=== PATIENT | female | born 1945 | race Caucasian/White ===

== ENCOUNTER → 2016-10-02 | Outpatient (CLI) | payer OTHER ==
[2016-03-30 09:17] VITALS: BP 134/82; PULSE 90
[~2016-10-02] MED LIST: ANAS1TAB19 PO; EFF75 PO; MULT-506 PO; NRN100 PO; PRAV20TA PO; VNTHFA/IN INH
[2016-10-02 14:32] VITALS: BP 148/79; PULSE 81; TEMP 36.4; O2SAT 96
--- NOTE | 2016-10-02 16:21 | Radiation Oncology Follow-Up ---
Radiation Oncology Follow-Up Date of Visit Oct 02, 2016. (Lou Drummond PA-C) Reason For Visit 6 month follow-up (Lou Drummond PA-C) Radiation Completion Date 03/01/2016 (Lou Drummond PA-C) Diagnosis (1) Breast cancer Status: Resolved Onset Date: 03/16/2015 Stage: ll (B) Permanent Comment: DIAGNOSIS: Left breast cancer, invasive lobular carcinoma, grade 2, ER positive, MS/Her2 negative, [id number], stage IIB TREATMENT: 1. Lumpectomy/SLN - 05/04/2015 2. Chemotherapy - A/C followed by Taxol (Dr. Morales Rodriguez) - last cycle during week of 11/28/2015 3. Status post completion of radiation therapy 03/01/2016 received 6640 cGy Last Edited By: Lou Drummond on Mar 09, 2016 10:32 (Lou Drummond PA-C) History of Present Illness Ms. Juarez is a 70-year-old female who initially presented with an abnormal left mammogram in February 2015 which showed abnormal calcifications in the left upper outer quadrant. She underwent a core biopsy on 03/16/2015 which revealed invasive lobular carcinoma that was grade 2. She then subsequently underwent a bilateral MRI of the breast on 03/29/2015 which showed a 24 mm mass in the left breast but no other suspicious findings. Of note, a right lung nodule was noted and she did have a CT chest completed on 04/07/2015 which confirm multiple bilateral pulmonary nodules in the left breast mass. She then underwent an lumpectomy and sentinel lymph node biopsy on 05/04/2015 which revealed invasive lobular carcinoma that was grade 2 with ductal carcinoma in situ present. The tumor was 2.5 cm in the greatest dimension and was unifocal. There is no evidence of lymphovascular space invasion. The margins were negative. The sentinel lymph node resection revealed 1 positive sentinel lymph node with no extranodal extension identified. The patient subsequently underwent a PET/CT scan on 05/11/2015 which showed no evidence of distant metastatic disease. Of note, the pulmonary nodules were also not FDG avid. The patient subsequently underwent adjuvant chemotherapy (AC/T) underneath the supervision of Dr. Morales Rodriguez. She received her last cycle of Taxol chemotherapy the week of 11/28/2015. We did previously see the patient in consultation to discuss the role of radiation therapy and recommended adjuvant radiation therapy. Status post completion of radiation therapy 03/01/2016 received 6640 cGy (Lou Drummond PA-C) Interim History She's been doing well over the past 6 months. She has noted no changes to her breast. She's noted no masses or tenderness no change of the axilla. She's had no swelling of her arm. She is up-to-date on mammography. She stated after her mammogram in April there was a finding on the right side. And she had to have that investigated. She had an ultrasound performed on 05/07/2016. This was benign. There is no suspicious findings on the ultrasound. She is scheduled for her next mammogram in April. She also stated that she had a CT of the chest ordered by the primary care physician. She wasn't quite certain why this was being performed. She asked that Dr. Rodriguez reviewed the study and look at the scan. She continues on Arimidex and denies side effects. (Lou Drummond PA-C) Allergies Coded Allergies: No Known Allergies (Unverified , 10/13/15) Home Medications Scheduled Anastrozole (Arimidex), 1 TAB PO DAILY Gabapentin (Gabapentin), 300 MG PO HS Multivitamin (Multivitamin), 1 TAB PO DAILY Pravastatin (Pravachol ), 80 MG PO DAILY Venlafaxine Hcl (Effexor), 75 MG PO BID Review of Systems Gastrointestinal: Symptoms: WNL Oral: Symptoms: No Problems Respiratory: Symptoms: WNL Urinary: Symptoms: WNL Comments: nocturia times 1 - 2 Skin: Symptoms: No Problems Breast: Right Upper Arm Measurement: 28.8 Right Mid Arm Measurement: 25.0 Right Wrist Measurement: 16.0 Left Upper Arm Measurement: 31.0 Left Mid Arm Measurement: 24.3 Left Wrist Measurement: 16.1 Arm Dominence: Right Patient Cosmetic Evaluation: Excellent Staff Cosmetic Evalaluation: Excellent (Lou Drummond PA-C) Physical Exam Vital Signs Date Time Temp Pulse Resp B/P (MAP) Pulse Ox O2 Delivery O2 Flow Rate FiO2 10/02/16 14:32 36.4 81 16 148/79 96 Pain: Side: Bilateral Patient Pain Scale: 0 - 10 Initial Pain Intensity: 0.0 General Appearance: no apparent distress Eyes: normal inspection, EOMI ENT: normal ENT inspection, hearing grossly normal Neck: no adenopathy, thyroid normal Respiratory/Chest: lungs clear, no respiratory distress, no accessory muscle use Breast: Breast examination reveals well-healed incisions of the left breast. There are no masses or tenderness no axillary adenopathy. She has no skin retractions or nipple changes. There is no telangiectasia. Using the Staples score cosmesis she has a in excellent outcome. The right breast showed no masses or tenderness and no axillary adenopathy. Cardiovascular: regular rate, rhythm, no gallop, no murmur Abdomen: non tender, soft Extremities: no pedal edema Neurologic/Psychiatric: no motor/sensory deficits, alert, normal mood/affect Skin: warm/dry Lymphatic: no adenopathy (Lou Drummond PA-C) Additional Studies 05/07/2016 10:10 AM - Interface, Rad In Narrative History of left breast cancer diagnosed in Mar, 2015. Digital breast tomosynthesis was performed as well as targeted ultrasound of the right breast. Comparison is made to images from 05/04/2015, 03/16/2015 (left), 01/21/2015 ( bilateral), 01/18/2014 (bilateral), 01/12/2013 (bilateral), 01/11/2012 (bilateral) and 01/08/2011 ( bilateral). Left Breast Findings: The breast is heterogeneously dense (51% - 75% fibroglandular). This may lower the sensitivity of mammography. Postoperative changes in the upper outer quadrant and axilla are as anticipated and well characterized on the tomosynthesis images. There are no suspicious calcifications, masses nor unexplained areas of architectural distortion. Right Breast Findings: Mammogram: The breast is heterogeneously dense (51% - 75% fibroglandular). This may lower the sensitivity of mammography. The tissue in the upper outer aspect of the right breast is becoming from t he primary breast cone. Benign round and punctate calcifications are unchanged. Ultrasound: In the upper outer breast, the tissue has a normal appearance. There are no suspicious findings. Authenticated By Authenticating Date Authenticating Time Reading Providers(s) DIMAS GHOTRA MD 05-07-2016 10:10 DIMAS GHOTRA MD IMPRESSION: LEFT BREAST: Findings are probably benign. A short interval follow-up is recommended in 6 months. RIGHT BREAST: Benign, no evidence of malignancy. Normal interval follow-up is recommended in 12 months. I personally discussed the above findings and recommendations with the patient while she was in the Department of Radiology. This digital mammogram has been analyzed with the computer aided detection system. This notice contains the results of your recent mammogram, including information about breast density. If your mammogram shows that your breast tissue is dense, you should know that dense breast tissue is a common finding and is not abnormal. Statistics show many women could have dense or highly dense breasts. Dense breast tissue can make it harder to find cancer on a mammogram and may be associated with an increased risk of cancer. This information about the result of your mammogram is given to you to raise your awareness and to inform your conversations with your physician. Together, you can decide which screening options are right for you, based on your mammogram results, individual risk factors or physical examination. A report of your results was sent to your physician. Your mammographic breast density on today's study is described above. There are four categories of breast density on mammography. Fatty breasts and those with scattered fibroglandular tissue are not considered dense. Heterogeneously dense or extremely dense tissue is considered "dense". Please understand that assessment of breast density may vary from year to year. OVERALL ASSESSMENT - CATEGORY 3 - PROBABLY BENIGN END OF IMPRESSION Results CHEST CT, NO CONTRAST [96786 (CPT)] (Spec. #[id number]) (Order [id number]) Date/Time of Imaging Study Study Completed: 07/18/2016 11:12 AM [email or web address] PACS Image Narrative EXAM EXAM: CT THORAX WITHOUT CONTRAST DATE and TIME: 07/18/2016 11:12 am HISTORY CLINICAL INFORMATION: 6 month f/u pulmonary nodules; breast surgery changes, ? lymphocele TECHNIQUE Oral Contrast: Oral contrast was not administered. IV Contrast: IV contrast was not administered. COMPARISON CT THORAX WITHOUT CONTRAST dated 01/16/2016; CT THORAX WITH CONTRAST dated 2014 FINDINGS MEDIASTINUM AND YANETH: No mediastinal mass or pathologically enlarged lymph nodes. Incompletely evaluated yaneth in the absence of IV contrast are grossly unremarkable. HEART: There is no pericardial effusion. LARGE AIRWAYS: Unremarkable LUNGS: Stable 8 mm pulmonary nodule in the right middle lobe and stable 5 mm pulmonary nodule in the left upper lobe. New onset irregular pleural thickening with associated parenchymal stranding and questionable early honeycombing in the anterior and lateral left upper lobe, in an area of previously reported tiny nodule which is obscured by this process. The finding as a fibrotic appearance and may be related to the breast cancer therapy. Clinical correlation is needed with respect to RT field. Cannot completely rule out active disease in this area. The lungs are otherwise remarkable for mild and predominately centrilobular emphysema. PLEURA: There no pleural effusions. CHEST WALL/SOFT TISSUES: There is no axillary lymphadenopathy.Stable is treatment changes in the left breast. LINES AND DEVICES: None BONES: Degenerative changes. No acute finding. VESSELS: Atherosclerotic changes in the aorta and coronary arteries. UPPER ABDOMEN: No acute findings or interval changes. IMPRESSION Stable pulmonary nodules. No new pulmonary nodules. New irregular pleural thickening with adjacent pulmonary parenchymal stranding and questionable early honeycombing in the anterolateral left upper thorax. These findings may be related to the left breast cancer treatment (RT). Clinical correlation needed. RECOMMENDATIONS: Per Fleischner society recommendations in this high risk patient with stable prior CT examinations, followup CT in 12 months. 05/07/2016 10:10 AM - Interface, Rad In Narrative History of left breast cancer diagnosed in Mar, 2015. Digital breast tomosynthesis was performed as well as targeted ultrasound of the right breast. Comparison is made to images from 05/04/2015, 03/16/2015 (left), 01/21/2015 ( bilateral), 01/18/2014 (bilateral), 01/12/2013 (bilateral), 01/11/2012 (bilateral) and 01/08/2011 ( bilateral). Left Breast Findings: The breast is heterogeneously dense (51% - 75% fibroglandular). This may lower the sensitivity of mammography. Postoperative changes in the upper outer quadrant and axilla are as anticipated and well characterized on the tomosynthesis images. There are no suspicious calcifications, masses nor unexplained areas of architectural distortion. Right Breast Findings: Mammogram: The breast is heterogeneously dense (51% - 75% fibroglandular). This may lower the sensitivity of mammography. The tissue in the upper outer aspect of the right breast is becoming from t he primary breast cone. Benign round and punctate calcifications are unchanged. Ultrasound: In the upper outer breast, the tissue has a normal appearance. There are no suspicious findings. Authenticated By Authenticating Date Authenticating Time Reading Providers(s) DIMAS GHOTRA MD 05-07-2016 10:10 DIMAS GHOTRA MD IMPRESSION: LEFT BREAST: Findings are probably benign. A short interval follow-up is recommended in 6 months. RIGHT BREAST: Benign, no evidence of malignancy. Normal interval follow-up is recommended in 12 months. I personally discussed the above findings and recommendations with the patient while she was in the Department of Radiology. This digital mammogram has been analyzed with the computer aided detection system. This notice contains the results of your recent mammogram, including information about breast density. If your mammogram shows that your breast tissue is dense, you should know that dense breast tissue is a common finding and is not abnormal. Statistics show many women could have dense or highly dense breasts. Dense breast tissue can make it harder to find cancer on a mammogram and may be associated with an increased risk of cancer. This information about the result of your mammogram is given to you to raise your awareness and to inform your conversations with your physician. Together, you can decide which screening options are right for you, based on your mammogram results, individual risk factors or physical examination. A report of your results was sent to your physician. Your mammographic breast density on today's study is described above. There are four categories of breast density on mammography. Fatty breasts and those with scattered fibroglandular tissue are not considered dense. Heterogeneously dense or extremely dense tissue is considered "dense". Please understand that assessment of breast density may vary from year to year. OVERALL ASSESSMENT - CATEGORY 3 - PROBABLY BENIGN END OF IMPRESSION (Lou Drummond PA-C) Assessment & Plan Plan: Patient is also seen and examined by Dr. Rodriguez. The CT of the chest was reviewed. It was discussed with her that this was performed due to pulmonary nodules. It was recommended that it be rechecked again in one year. She is scheduled for her next mammogram in October. She continues on Arimidex. Continue regular follow-up with Dr. Rodriguez in medical oncology and her primary care physician. We asked her to return to our office in 1 year. (Lou Drummond PA-C) I agree with note created by Lou Drummond PA-C. I reviewed the patient's chart and information with her. I have examined and evaluated the patient. I reviewed relevant clinical information and answered the patient's questions. (Veeral. Rodriguez MD) Total Time In Follow-Up I spent 20 units speaking to the patient performing examination. I spent 15 minutes reviewing information and completing this note. (Lou Drummond PA-C) I spent 15 minutes examining and counseling the patient. (Veeral. Rodriguez MD) Copy To Florence Mayfield MD; Mahogany Valentin M.D.; Morales Rodriguez M.D. Problem Qualifiers (1) Breast cancer: Breast location: upper outer quadrant of breast Estrogen receptor status: positive Patient sex: female Laterality: left Qualified Codes: C50.412 - 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 female breast; Z17.0 - Estrogen receptor positive status [ER+]
== END | disposition home or self-care (01) ==
LOC: C.ONC 14:26
PROVIDERS: ATTEND Physician Assistant Medical
DX: Z08 Encounter for follow-up examination after completed treatment for malignant neoplasm (principal); Z92.3 Personal history of irradiation; Z85.3 Personal history of malignant neoplasm of breast

== ENCOUNTER 2017-08-22 16:48 | Inpatient (IN) | payer OTHER ==
[~2017-08-22] VITALS: Ht 160 cm; Wt 74.7 kg
[~2017-08-22 16:48] MED LIST changes: -VNTHFA/IN INH
[2017-08-22] MEDS ORDERED: NRN300 PO (17:35)
[2017-08-22] MEDS ORDERED: PRAV80TA2 PO (17:35)
[2017-08-22] MEDS ORDERED: HYDROCODONE/ACETAMIN 5/325MG TAB PO PRN (17:45)
[2017-08-22 17:52] LABS: HEMATOCRIT 35.8 % (37-47); HEMOGLOBIN 12.3 g/dL (12.0-16.0); MEAN CELL VOLUME 91.1 fL (80-100); MEAN CORPUSCULAR HEMOGLOBIN 31.3 pg (25-34); MEAN CORPUSCULAR HGB CONC 34.4 g/dl (32-36); MEAN PLATELET VOLUME 9.3 fL (7.4-10.4); PLATELET COUNT 218 K/uL (130-400); RED CELL DISTRIBUTION WIDTH CV 13.3 % (11.5-14.5); RED CELL DISTRIBUTION WIDTH SD 44.7 fL (36.4-46.3); WHITE BLOOD COUNT 10.85 K/uL (4.8-10.8)
[2017-08-22] MEDS ORDERED: ONDANSETRON INJ 2 MG/ML 2 ML VIAL IV PRN (18:00)
[2017-08-22] MEDS ORDERED: ACETAMINOPHEN 325 MG TAB PO PRN (18:00)
[2017-08-22] MEDS ORDERED: POLYETHYLENE (MIRALAX) 17 GM PACK PO PRN (18:00)
[2017-08-22] MEDS ORDERED: MAGNESIUM HYDROXIDE SUSP 30 ML UDC PO PRN (18:00)
[2017-08-22] MEDS ORDERED: NITROGLYCERIN 0.4 MG SL PER TAB CHARGE SL PRN (18:00)
[2017-08-22] MEDS ORDERED: ALUMINUM/MAGNESIUM/SIMETH (MAALOX MAX) 30 ML UDC PO PRN (18:00)
[2017-08-22 18:11] LABS: ALBUMIN 3.7 gm/dl (3.4-5.0); ALT/SGPT 25 U/L (12-78); AST/SGOT 25 U/L (15-37); BLOOD UREA NITROGEN 14 mg/dl (7-18); CALCIUM 9.1 mg/dl (8.5-10.1); CARBON DIOXIDE 25 mmol/L (21-32); CREATININE 0.75 mg/dl (0.60-1.20); GLUCOSE 82 mg/dl (70-99); POTASSIUM 3.9 mmol/L (3.5-5.1); SODIUM 136 mmol/L (136-145)
[2017-08-22 18:15] LABS: ALKALINE PHOSPHATASE 84 U/L (45-117); TOTAL PROTEIN 7.6 gm/dl (6.4-8.2)
[2017-08-22 18:51] LABS: INR 1.1 (0.9-1.1); PTT PATIENT 26.5 SECONDS (21.0-31.0)
[2017-08-22] MEDS ORDERED: OPTIRAY 320 IV PRN (19:00)
--- NOTE | 2017-08-22 19:06 | EMERGENCY ROOM VISIT NOTE ---
History Report prepared by Jade: Negrito Sanchez Under the Supervision of: Dr. Maxime Gee M.D. First contact with patient: 17:20 Chief Complaint: OTHER COMPLAINT Stated Complaint: BLOOD CLOTS, REFERRED History of Present Illness The patient is a 72 year old female who presents to the Emergency Room with complaints of a constant, firm, left calf beginning this morning. The patient states her left calf was bright red and swollen yesterday. The patient notes she woke this morning and her left calf was "as hard as a brick." She states she was evaluated by [facility] in [place] this morning and was sent to the ED for an extensive DVT found in the left leg. The patient reports her mother had a blood clot a long time ago, and it was thought to be caused by oral control. She notes she went on a 120 mile car trip a month ago, but she stopped an hour into the trip. The patient denies a history of a blood clot in her lower extremity, chest pain, shortness of breath, recent surgery, trauma, and taking blood thinners. Source of History: patient Onset: this morning Position: other (left calf) Quality: other (firm) Timing: constant Associated Symptoms: No chest pain, No SOB Note: Denies: trauma Review of Systems See HPI for pertinent positives & negatives. A total of 10 systems reviewed and were otherwise negative. Past Medical & Surgical Medical Problems: (1) Anxiety (2) Breast cancer (3) Depression (4) DVT (deep venous thrombosis) (5) Dyslipidemia (6) Elevated troponin (7) Fever (8) History of tobacco abuse Surgical Problems: (1) H/O lymph node biopsy (2) History of carpal tunnel surgery (3) History of lumpectomy (4) S/P partial mastectomy (5) S/p port placement Family History Cancer MOTHER ( of lung CA age 72) Diabetes mellitus Heart disease FATHER ( of SD age 48) Hypertension Lung disease Social History Smoking Status: Former Smoker Alcohol Use: none Drug Use: none Housing Status: lives alone Occupation Status: retired Current/Historical Medications Scheduled Anastrozole (Arimidex), 1 TAB PO HS Gabapentin (Gabapentin), 300 MG PO HS Multivitamin (Multivitamin), 1 TAB PO HS Pravastatin Sodium (Pravastatin Sodium), 80 MG PO HS Venlafaxine Hcl (Effexor), 75 MG PO BID Allergies Coded Allergies: No Known Allergies (Unverified , 08/22/17) Physical Exam Vital Signs Date Time Temp Pulse Resp B/P (MAP) Pulse Ox O2 Delivery O2 Flow Rate FiO2 08/22/17 17:02 36.8 101 20 138/76 97 Room Air Physical Exam GENERAL: Patient is in no acute distress. HEENT: No acute trauma, normocephalic atraumatic, mucous membranes moist, no nasal congestion, no scleral icterus. NECK: No stridor, no adenopathy, no meningismus, trachea is midline. LUNGS: Clear to auscultation bilaterally, no wheeze, no rhonchi, breath sounds equal. HEART: Without murmurs gallops or rubs, regular rate and rhythm. ABDOMEN: Soft, nontender, bowel sounds positive, no hernias, no peritonitis. EXTREMITIES: No cyanosis. full range of motion of all the joints without pain or difficulty, no signs for acute trauma. Moderate edema to the left leg. Left leg is swollen compared to the right. No erythema noted. Left calf is firm to palpation. NEUROLOGIC: Oriented x 3, no acute motor or sensory deficits, no focal weakness. SKIN: No rash, no jaundice, no diaphoresis. Medical Decision & Procedures ER Provider Diagnostic Interpretation: Ultrasound results from [facility]. VENOUS DUPLEX LIMIT LOWER EXTR - 08/22/2017 3:14 PM (Pre-visit ultrasound) IMPRESSION: Extensive left lower extremity deep venous thrombosis from at least the common femoral vein caudally into the proximal calf veins. No DVT is demonstrated in the right common femoral vein. Laboratory Results 08/22/17 17:21 08/22/17 17:21 Test 08/22/17 17:21 Red Blood Count 3.93 M/uL (4.2-5.4) Mean Corpuscular Volume 91.1 fL (80-100) Mean Corpuscular Hemoglobin 31.3 pg (25-34) Mean Corpuscular Hemoglobin Concent 34.4 g/dl (32-36) RDW Standard Deviation 44.7 fL (36.4-46.3) RDW Coefficient of Variation 13.3 % (11.5-14.5) Mean Platelet Volume 9.3 fL (7.4-10.4) Anion Gap 8.0 mmol/L (3-11) Est Creatinine Clear Calc Drug Dose 68.0 ml/min Estimated GFR () 93.6 Estimated GFR (Non- 80.8 BUN/Creatinine Ratio 18.8 (10-20) Calcium Level 9.1 mg/dl (8.5-10.1) Total Bilirubin 0.6 mg/dl (0.2-1) Aspartate Amino Transf (AST/SGOT) 25 U/L (15-37) Alanine Aminotransferase (ALT/SGPT) 25 U/L (12-78) Alkaline Phosphatase 84 U/L (45-117) Troponin I < 0.015 ng/ml (0-0.045) Total Protein 7.6 gm/dl (6.4-8.2) Albumin 3.7 gm/dl (3.4-5.0) Globulin 3.9 gm/dl (2.5-4.0) Albumin/Globulin Ratio 0.9 (0.9-2) Laboratory results reviewed by me. ECG Per My Interpretation Indication: other (DVT) Rate (beats per minute): 93 Rhythm: normal sinus Findings: no ectopy, other (No ST elevation or PVCs.) ED Course 1721: The patient was evaluated in room C07. A complete history and physical exam was performed. I discussed the treatment plan and results of the physical examination with the patient. She verbalized agreement of the plan. The patient will be evaluated for further management and care. 1736: I discussed the patient's case with Dr. Hills, [facility] Hospitalist. The patient will be evaluated for further management and care. Medical Decision The patient is a 72 year old female who presents to the ED with complaints of a firm left calf. Differential diagnoses considered include coagulopathy, DVT, PE , dehydration, malignancy, genetic clotting disorder. The patient's white count is very mildly elevated, this could be consistent with infection or just the stress of her presentation. No concerning anemia. No coagulopathy. No significant electrolyte abnormality, kidney failure or hepatitis. The ultrasound from earlier today did show an extensive left leg DVT. The patient's DVT is large enough that a hospitalization is warranted. I did speak with case management. I discussed my findings with the on-call hospitalist. The patient is in agreement with the hospital stay. Of note, I did order for the typical genetic clotting profile. Medication Reconcilliation Current Medication List: was personally reviewed by me Blood Pressure Screening Patient's blood pressure: Elevated blood pressure Blood pressure disposition: Referred to PCP Consults Time Called: 1729 Consulting Physician: Farzaneh Perez Hospitalist Returned Call: [phone] I discussed the patient's case with Farzaneh Perez Hospitalist. The patient will be evaluated for further management and care. Impression Primary Impression: Left leg DVT Scribe Attestation The scribe's documentation has been prepared under my direction and personally reviewed by me in its entirety. I confirm that the note above accurately reflects all work, treatment, procedures, and medical decision making performed by me. Departure Information Dispostion Being Evaluated By Hospitalist Referrals Mahogany Valentin M.D. (PCP) Patient Instructions My [facility]
--- NOTE | 2017-08-22 19:17 | History and Physical ---
History & Physical Date & Time of Service: August 22, 2017 at 19:04 Chief Complaint: Blood Clots, Referred Primary Care Physician: Mahogany Valentin M.D. History of Present Illness Source: patient, clinic records, hospital records Pt is 72 y/o F with PMH depression, HLD, L breast CA s/p surgery, chemo & radiation presented to ER from PCP office with c/o LLE edema started yesterday. Patient states last night noticed discomfort to left calf with associated edema, erythema and firmness. Reports past 1-2 weeks with some aching to upper thigh. Patient seen in PCP office today and had ultrasound LLE: Extensive LLE DVT from at least the common femoral vein caudally into the proximal calf veins. No DVT is demonstrated right common femoral vein. Denies history of previous DVT/PE. Denies prolonged immobilization or recent injury or surgery. Denies fever/chills, diaphoresis, N/V/D/C, OLIVERA, dizziness, syncope, vision changes, neck pain, CP, SOB, orthopnea, palpitations, cough, sore throat, choking, otalgia, rhinorrhea, abdominal pain, paresthesias, weakness, extremity weakness, other rashes, urinary symptoms, weight loss. Past Medical/Surgical History Medical Problems: (1) Anxiety Status: Chronic (2) Breast cancer Permanent Comment: DIAGNOSIS: Left breast cancer, invasive lobular carcinoma, grade 2, ER positive, [place]/Her2 negative, [id number], stage IIB TREATMENT: 1. Lumpectomy/SLN - 05/04/2015 2. Chemotherapy - A/C followed by Taxol (Dr. Morales Rodriguez) - last cycle during week of 11/28/2015 3. Status post completion of radiation therapy 03/01/2016 received 6640 cGy Status: Resolved (3) Depression Status: Chronic (4) Dyslipidemia Status: Chronic (5) Elevated troponin Status: Resolved (6) Fever Status: Resolved (7) History of tobacco abuse Status: Chronic Surgical Problems: (1) H/O lymph node biopsy Status: Chronic (2) History of carpal tunnel surgery Status: Chronic (3) History of lumpectomy Status: Resolved (4) S/P partial mastectomy Status: Chronic (5) S/p port placement Status: Chronic Family History Cancer MOTHER ( of lung CA age 72) Diabetes mellitus Heart disease FATHER ( of [place] age 48) Hypertension Lung disease Social History Smoking Status: Former Smoker Smokeless Tobacco Use: No Alcohol Use: none Drug Use: none Housing status: lives alone Occupational Status: retired Allergies Coded Allergies: No Known Allergies (Unverified , 08/22/17) Home Medications Scheduled Anastrozole (Arimidex), 1 TAB PO HS Gabapentin (Gabapentin), 300 MG PO HS Multivitamin (Multivitamin), 1 TAB PO HS Pravastatin Sodium (Pravastatin Sodium), 80 MG PO HS Venlafaxine Hcl (Effexor), 75 MG PO BID Review of Systems See HPI for pertinent positives & negatives. All other systems reviewed and were otherwise negative Physical Exam Vital Signs Date Time Temp Pulse Resp B/P (MAP) Pulse Ox O2 Delivery O2 Flow Rate FiO2 08/22/17 18:38 92 18 161/97 94 Room Air 08/22/17 17:02 36.8 101 20 138/76 97 Room Air General Appearance: WD/WN, no apparent distress Head: normocephalic, atraumatic Eyes: normal inspection, sclerae normal ENT: hearing grossly normal, pharynx normal, + pertinent finding (Mucous membranes moist) Neck: supple, trachea midline Respiratory/Chest: lungs clear, normal breath sounds, no respiratory distress Cardiovascular: regular rate, rhythm (Rate 90), no murmur, normal peripheral pulses Abdomen/GI: normal bowel sounds, non tender, soft Extremities/Musculoskelatal: + pertinent finding (LLE: Left calf and left foot with erythema, calf with edema and firmness and tenderness to palpation. RLE: Normal appearance and nontender. Full active range of motion bilateral upper and lower extremities. Distal pulses intact bilaterally, brisk cap refill, sensation to light touch) Neurologic/Psych: alert, normal mood/affect (Patient very pleasant), oriented x 3 Skin: warm/dry, + pertinent finding (As above LLE otherwise normal color noted) Diagnostics Laboratory Results Results Past 24 Hours Test 08/22/17 17:21 08/22/17 18:10 08/22/17 18:30 Range/Units White Blood Count 10.85 4.8-10.8 K/uL Red Blood Count 3.93 4.2-5.4 M/uL Hemoglobin 12.3 12.0-16.0 g/dL Hematocrit 35.8 37-47 % Mean Corpuscular Volume 91.1 80-100 fL Mean Corpuscular Hemoglobin 31.3 25-34 pg Mean Corpuscular Hemoglobin Concent 34.4 32-36 g/dl RDW Standard Deviation 44.7 36.4-46.3 fL RDW Coefficient of Variation 13.3 11.5-14.5 % Platelet Count 218 130-400 K/uL Mean Platelet Volume 9.3 7.4-10.4 fL Sodium Level 136 136-145 mmol/L Potassium Level 3.9 3.5-5.1 mmol/L Chloride Level 103 98-107 mmol/L Carbon Dioxide Level 25 21-32 mmol/L Anion Gap 8.0 3-11 mmol/L Blood Urea Nitrogen 14 7-18 mg/dl Creatinine 0.75 0.60-1.20 mg/dl Est Creatinine Clear Calc Drug Dose 68.0 ml/min Estimated GFR () 93.6 Estimated GFR (Non- 80.8 BUN/Creatinine Ratio 18.8 10-20 Random Glucose 82 70-99 mg/dl Calcium Level 9.1 8.5-10.1 mg/dl Total Bilirubin 0.6 0.2-1 mg/dl Aspartate Amino Transf (AST/SGOT) 25 15-37 U/L Alanine Aminotransferase (ALT/SGPT) 25 12-78 U/L Alkaline Phosphatase 84 45-117 U/L Troponin I < 0.015 0-0.045 ng/ml Total Protein 7.6 6.4-8.2 gm/dl Albumin 3.7 3.4-5.0 gm/dl Globulin 3.9 2.5-4.0 gm/dl Albumin/Globulin Ratio 0.9 0.9-2 Erythrocyte Sedimentation Rate 30 0-21 mm/hr Prothrombin Time 12.0 9.0-12.0 SECONDS Prothromb Time International Ratio 1.1 0.9-1.1 Activated Partial Thromboplast Time 26.5 21.0-31.0 SECONDS Partial Thromboplastin Ratio 1.0 Diagnostic Radiology [facility] Out patient 08/22/2017 4:16 PM-VENOUS DUPLEX LOWER EXTREMITY Impression: Extensive left lower extremity deep venous thrombosis from at least the common femoral vein caudally into the proximal calf veins. No DVT is demonstrated in the right common femoral vein. Read by Kavita Ash MD EKG EKG: Normal sinus rhythm, rate 93 Impression Assessment and Plan Assessment and plan - See attending physician Dr Fontaine's addendum for assessment and plan ATTENDING ADDENDUM: Patient seen and examined care coordinated with Keara Boyle PA-C This is a 72-year-old female with history of left-sided breast cancer status post lumpectomy/chemo and radiation treatment Presented to ER with complaint of swelling and pain on left leg yesterday patient woke up in the morning, had throbbing pain on left lower thigh and calf muscle area, also noticed significant swelling No history of recent trauma No recent travel history(went to [place] by a car approximately a month ago took multiple breaks in between) Was seen at primary care office Lower extremity Doppler shows extensive DVT on the left lower extremity Patient denies of any chest pain, no shortness of breath no dizzy spell, no pleuritic chest pain no dyspnea on exertion PHYSICAL EXAM: Please refer to physical exam by Keara Boyle PA-C ASSESSMENT AND PLAN: EXTENSIVE LEFT LOWER EXTREMITY DVT Left pain and discomfort on the left lower extremity in last 24 hours Reports past 1-2 weeks with aching upper thigh pain Lower extremity ultrasound: Extensive left lower extremity DVT from the common femoral vein into the proximal cuff veins No DVT demonstrated in the right common femoral vein No prior history of DVT or PE No history of recent trauma, prolonged immobilization or travel history Given history of breast cancer Patient is started with therapeutic dose of Lovenox CT chest with contrast shows no evidence of PE Given underlying malignancy/unprovoked lower extremity extensive DVT-patient will need to be on long-term anticoagulation Hematology oncology Dr. Rodriguez consulted HISTORY OF LEFT BREAST INVASIVE DUCTAL CANCER Invasive lobular carcinoma of left breast Status post lumpectomy/sentinel lymph node biopsy- 04/2015 Status post chemo treatment Status post radiation treatment at present on Arimidex -kept on hold in setting of acute thrombotic event Follows with hematology oncology Dr. Morales Rodriguez Extensive lower extremity DVT with underlying malignancy/breast carcinoma: Ideally patient should be treated with therapeutic dose of Lovenox for at least 6 months without interruption /as opposed to Coumadin to prevent recurrence of DVT Hematology consultation requested for recommendation CHEMO INDUCED LOWER EXTREMITY NEUROPATHY -Continue Neurontin HYPERLIPIDEMIA -On statin DEPRESSION Continue Effexor 75 mg twice daily CODE STATUS: Full code: Discussed with patient DVT prophylaxis: Therapeutic subcu Lovenox Disposition: Expected to be discharged home when medically stable Patient may need Lovenox bridge therapy on discharge Social service consulted to assist in discharge planning Resuscitation Status Full code VTE Prophylaxis Will order VTE Prophylaxis: Yes Additional Copies To Mahogany Valentin M.D.
[2017-08-22 20:00] VITALS: BP 153/75; PULSE 97; TEMP 37.6; O2SAT 93; Ht 160 cm; Wt 74.7 kg
--- NOTE | 2017-08-22 20:16 | DIAGNOSTIC IMAGING REPORT ---
(CHEST FOR PE) ANGIO WITH CLINICAL HISTORY: 72 years-old Female presenting with ^extensive lower ext dvt /hx of breast ca. TECHNIQUE: Multidetector CT angiography of the chest was performed after administration of intravenous contrast. 3-D volumetric and/or maximum intensity projection (MIP) images were subsequently reconstructed for review. IV contrast: 90 mL of Optiray 320. A dose lowering technique was used consistent with the principles of ALARA (as low as reasonably achievable). COMPARISON: 10/13/2015. CT DOSE (mGy.cm): The estimated cumulative dose is 374.34 mGy.cm. FINDINGS: Fitness And Wellness Director topogram: Unremarkable. Pulmonary vasculature: The study is suboptimal for the assessment of the pulmonary vascular tree secondary to timing of the contrast bolus. Allowing for limited image quality, no central filling defect to suggest pulmonary embolus. Main pulmonary artery is not enlarged. No flattening of the interventricular septum. No intracardiac filling defect. No reflux of contrast into the hepatic veins. Remaining chest: On soft tissue windows, normal thyroid. Postsurgical changes of the lateral left breast likely indicating prior lumpectomy. Skin thickening of the left breast likely indicates prior radiation. Small seroma suspected in the operative bed (series 4 image 165). No axillary, supraclavicular, hilar, or mediastinal lymphadenopathy. Atherosclerosis of the aorta. Normal heart size. Coronary artery calcification. No pericardial or pleural effusion. Trace hiatal hernia. Nonspecific thickening of the left adrenal gland, unchanged from prior exam. On lung windows, subpleural reticulation anteriorly in the right middle lobe and lingula. Mild to moderate apical predominant centrilobular emphysema. The previously suggested groundglass nodules in the lower lobes have resolved, likely atelectasis or inflammatory infiltrate on the prior exam. No pulmonary nodule or infiltrate. Central airways patent. On bone windows, degenerative changes of the spine. IMPRESSION: 1. Allowing for suboptimal image quality, no evidence of pulmonary embolus. 2. Emphysema. No superimposed infiltrate to suggest acute intrathoracic pathology. 3. Coronary artery calcification. 4. Post surgical and posttreatment changes of the lateral left breast with a suspected small seroma in the lumpectomy bed. Electronically signed by: Cem Burnham M.D. 08/22/2017 8:14 PM Dictated Date/Time: 08/22/2017 8:08 PM
[2017-08-22] MEDS: ENOXAPARIN 80 MG/0.8 ML SYR SQ SCH (21:10)
[2017-08-23 00:32] VITALS: BP 146/78; PULSE 85; TEMP 37.1; O2SAT 93
[2017-08-23 03:55] VITALS: BP 119/55; PULSE 98; TEMP 37.4; O2SAT 92
[2017-08-23 05:53] LABS: HEMATOCRIT 32.7 % (37-47); HEMOGLOBIN 11.2 g/dL (12.0-16.0); MEAN CELL VOLUME 91.6 fL (80-100); MEAN CORPUSCULAR HEMOGLOBIN 31.4 pg (25-34); MEAN CORPUSCULAR HGB CONC 34.3 g/dl (32-36); MEAN PLATELET VOLUME 8.8 fL (7.4-10.4); PLATELET COUNT 202 K/uL (130-400); RED CELL DISTRIBUTION WIDTH CV 13.3 % (11.5-14.5); RED CELL DISTRIBUTION WIDTH SD 44.6 fL (36.4-46.3); WHITE BLOOD COUNT 9.99 K/uL (4.8-10.8)
[2017-08-23 06:08] LABS: PTT PATIENT 30.9 SECONDS (21.0-31.0)
[2017-08-23 06:34] LABS: BLOOD UREA NITROGEN 12 mg/dl (7-18); CALCIUM 8.5 mg/dl (8.5-10.1); CARBON DIOXIDE 26 mmol/L (21-32); CREATININE 0.64 mg/dl (0.60-1.20); GLUCOSE 106 mg/dl (70-99); POTASSIUM 3.8 mmol/L (3.5-5.1); SODIUM 137 mmol/L (136-145)
[2017-08-23 07:33] VITALS: BP 125/68; PULSE 74; TEMP 36.8; O2SAT 95
[2017-08-23] MEDS ORDERED: PERFLUTREN LIPID MICROSPHERE (DEFINITY) IV ONE (09:00)
[2017-08-23] MEDS ORDERED: VENLAFAXINE HCL 37.5 MG TAB PO SCH (09:00)
[2017-08-23] MEDS: ENOXAPARIN 80 MG/0.8 ML SYR SQ SCH (09:37)
--- NOTE | 2017-08-23 09:40 | ECHOCARDIOGRAM REPORT ---
*NOTICE TO RECEIVING CONSTITUTION PARTY AGENCY This information is strictly Confidential and protected under [place] law. [place] law prohibits you from making any further disclosure of this information unless further disclosure is expressly permitted by the written consent of the person to whom it pertains or is authorized by law. A general authorization for the release of medical or other information is not sufficient for this purpose. Hospital accepts no responsibility if the information is made available to any other person, INCLUDING THE PATIENT. Interpretation Summary * Name: GRAZYNA FARRIS Study Date: 08/23/2017 08:26 AM BP: 125/68 mmHg * Patient Location: [facility]\S\N281\S\2 HR: 78 * : 1945 (M/d/yyyy) Gender: Female Height: 63 in * Age: 72 yrs Ethnicity: [place] Weight: 167 lb * Ordering Physician: Zara Fontaine * Referring Physician: Jasmyne Ross * Performed By: Renée Oneal RDCS * * Reason For Study: RIGHT HEART STRAIN * BSA: 1.8 m2 * -- Conclusions -- * The left ventricle is normal in size. * There is normal left ventricular wall thickness. * Left ventricular systolic function is normal. * The left ventricular wall motion is normal. * Ejection Fraction = 60-65%. * The right ventricle is normal in size and function. * Doppler findings do not suggest pulmonary hypertension. * Normal inferior vena cava diameter and respiratory variation suggests normal central venous pressure. Procedure Details * A contrast injection of Definity was performed to improve assessment of LV function. * Contrast was injected into an intravenous site in the right arm. * One vial of Definity ultrasound contrast was diluted in normal saline to a total volume of 10 ml. A total of '2' ml of solution was administered during imaging. * Lot # [id number] of Definity utilized for procedure. * Expiration date 1 JUN 10. * The attending nurse who injected the contrast agent was ALFONZO KEYES RN. * A complete two-dimensional transthoracic echocardiogram was performed (2D, M-mode, Doppler and color flow Doppler). Left Ventricle * The left ventricle is normal in size. * There is normal left ventricular wall thickness. * Ejection Fraction = 60-65%. * Left ventricular systolic function is normal. * The left ventricular wall motion is normal. Right Ventricle * The right ventricle is normal in size and function. Atria * The left atrial size is normal. * Right atrial size is normal. * No ASD detected; PFO is not assessed. Mitral Valve * The mitral valve anatomy is normal. * There is no mitral valve stenosis. * There is trace mitral regurgitation. Tricuspid Valve * The tricuspid valve anatomy is normal. * There is no tricuspid stenosis. * There is trace tricuspid regurgitation. * Doppler findings do not suggest pulmonary hypertension. Aortic Valve * The aortic valve is trileaflet. * No hemodynamically significant valvular aortic stenosis. * No aortic regurgitation is present. Pulmonic Valve * The pulmonic valve is not well visualized. Great Vessels * The aortic root is normal size. Pericardium/Pleural * There is no pericardial effusion. Great Vessels * Normal inferior vena cava diameter and respiratory variation suggests normal central venous pressure. MMode 2D Measurements and Calculations IVSd 1.0 cm IVSs 1.2 cm LVIDd 4.4 cm LVIDs 2.9 cm LVPWd 1.0 cm LVPWs 1.6 cm IVS/LVPW 0.98 FS 34.9 % EDV(Teich) 89.0 ml ESV(Teich) 31.8 ml EF(Teich) 64.3 % EDV(cubed) 86.8 ml ESV(cubed) 24.0 ml EF(cubed) 72.4 % % IVS thick 21.6 % % LVPW thick 58.0 % LV mass(C)d 153.0 grams LV mass(C)dI 85.4 grams/m\S\2 LV mass(C)s 137.3 grams LV mass(C)sI 76.7 grams/m\S\2 SV(Teich) 57.2 ml SI(Teich) 31.9 ml/m\S\2 SV(cubed) 62.8 ml SI(cubed) 35.1 ml/m\S\2 LA dimension 3.2 cm LVAd ap4 25.3 cm\S\2 LVLd ap4 7.6 cm EDV(MOD-sp4) 68.7 ml EDV(sp4-el) 71.7 ml LVAs ap4 13.3 cm\S\2 LVLs ap4 5.6 cm ESV(MOD-sp4) 26.8 ml ESV(sp4-el) 26.6 ml EF(MOD-sp4) 61.0 % EF(sp4-el) 62.8 % LVAd ap2 27.9 cm\S\2 LVLd ap2 7.6 cm EDV(MOD-sp2) 82.8 ml EDV(sp2-el) 87.1 ml LVAs ap2 16.7 cm\S\2 LVLs ap2 7.2 cm ESV(MOD-sp2) 32.7 ml ESV(sp2-el) 32.8 ml EF(MOD-sp2) 60.5 % EF(sp2-el) 62.3 % LVLd %diff -0.33 % EDV(MOD-bp) 74.8 ml LVLs %diff 21.3 % ESV(MOD-bp) 34.0 ml EF(MOD-bp) 54.6 % SV(MOD-sp4) 41.9 ml SI(MOD-sp4) 23.4 ml/m\S\2 SV(MOD-sp2) 50.1 ml SI(MOD-sp2) 28.0 ml/m\S\2 SV(MOD-bp) 40.8 ml SI(MOD-bp) 22.8 ml/m\S\2 SV(sp4-el) 45.0 ml SI(sp4-el) 25.1 ml/m\S\2 SV(sp2-el) 54.2 ml SI(sp2-el) 30.3 ml/m\S\2 Doppler Measurements and Calculations MV E max marissa 67.4 cm/sec MV A max marissa 71.3 cm/sec MV E/A 0.95 MV dec time 0.19 sec Ao V2 max 123.8 cm/sec Ao max PG 6.1 mmHg Ao max PG (full) 3.0 mmHg LV V1 max PG 3.1 mmHg LV V1 max 88.3 cm/sec
[2017-08-23 11:27] VITALS: BP 114/71; PULSE 74; TEMP 36.7; O2SAT 94
--- NOTE | 2017-08-23 14:16 | DIAGNOSTIC IMAGING REPORT ---
ABD/PELVIS NO IV OR ORAL CONT CLINICAL HISTORY: 72 years-old Female presenting with h/o cancer, want to ensure no evidence of metastatic disease. TECHNIQUE: Multidetector CT of the abdomen and pelvis was performed without the use of intravenous contrast. IV contrast: None. A dose lowering technique was used consistent with the principles of ALARA (as low as reasonably achievable). COMPARISON: Ultrasound of the abdomen from 2016. CT DOSE (mGy.cm): The estimated cumulative dose is 398.56 mGy.cm. FINDINGS: Global Logistics Manager topogram: Unremarkable. Lung bases: Minimal basilar opacities, likely atelectasis. Emphysema noted. Normal heart size. Coronary artery calcification. No pericardial or pleural effusion. Liver: Mildly macronodular contour of the liver. Normal liver density. Biliary: No gross biliary ductal dilatation allowing for noncontrast technique. Gallbladder decompressed. Pancreas: Mild parenchymal atrophy. Spleen: Normal noncontrast appearance. Few splenule is noted. Adrenal glands: Nonspecific thickening of the adrenal glands, left greater than right. Kidneys and ureters: Tiny exophytic hypodense lesion arising from the posterior aspect of the interpolar region of the left kidney likely cyst though indeterminate on this noncontrast exam. Otherwise normal noncontrast appearance. No nephrolithiasis. No hydronephrosis. Normal ureters. Bladder: Incompletely evaluated secondary to underdistention. Pelvic organs: Normal noncontrast appearance. Bowel: Normal appendix. No bowel obstruction. Peritoneal cavity: No free fluid or intraperitoneal gas. Infiltration of the small bowel mesentery with associated multiple subcentimeter lymph nodes, likely indicating mesenteric panniculitis. Lymph nodes: No pathologically enlarged lymph nodes in the abdomen or pelvis. Vasculature: Atherosclerosis of the normal caliber abdominal aorta. Abdominal wall: Focal infiltration along the right anterior abdominal wall may relate to medication menstruation. Musculoskeletal: Degenerative changes of the spine. IMPRESSION: 1. The presence of metastatic disease cannot be adequately assessed by noncontrast exam. Allowing for this, no gross evidence of acute intra-abdominal pathology or neoplastic process. No lymphadenopathy. 2. 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 3. Emphysema. Electronically signed by: Cem Burnham M.D. 08/23/2017 2:14 PM Dictated Date/Time: 08/23/2017 2:04 PM
[2017-08-23 15:04] VITALS: BP 129/74; PULSE 89; TEMP 37.4; O2SAT 95
[2017-08-23] MEDS ORDERED: APIX1TAB3 PO (16:36)
[2017-08-23] MEDS ORDERED: HYDR-5688 PO (16:36)
--- NOTE | 2017-08-23 16:48 | Discharge Instructions ---
Discharge Instructions Date of Service August 23, 2017. Admission Reason for Admission: Dvt (Deep Venous Thrombosis) Discharge Discharge Diagnosis / Problem: (1) Left leg DVT VTE Date & Time Date of VTE Diagnosis: August 22, 2017 Time of VTE Diagnosis: 16:16 Discharge Goals Goal(s): Therapeutic intervention, Prevent Disease Progression Activity Recommendations Activity Limitations: per Instructions/Follow-up section . Instructions / Follow-Up Instructions / Follow-Up Medication Instructions: Your condition is typically treated with an anticoagulant. Anticoagulants will thin your blood to help prevent new clots. * You should take her medication exactly as directed. * Never skip a dose. * Never take a double dose. If you miss a dose, take it as soon as you remember. Call your Primary Care doctor if you experience any of the following: * Swelling or Pain in your leg * Sudden, continuous pain deep in a muscle * Pain that worsens when you are active or when you stand still for a long time * Chest Pain * Sudden Shortness of Breath * Rapid or pounding heart beat * Fainting * Dizziness * Cough with blood or bloody sputum * Sweating more than normal * Bruises * Heavy or uncontrolled bleeding * Blood in your urine, stool or vomit * Black or tarry stools Caring for Your Self at Home: * Avoid sitting, standing or lying down for long periods without moving your legs and feet * When traveling by car, stop to get out and move around at least once every 3 hours * On long airplane, train or bus rides, get up and move around when possible * If you can't get up, wiggle your toes and tighten your calves to keep your blood moving Follow Up: It is important for you to keep your follow up appointments with your medical provider. ADDITIONAL PROVIDER INSTRUCTIONS: 1. Please take all medications as instructed. You have been started on a new blood thinner, APIXABAN (ELIQUIS), which you will need to take per the following instructions: 10mg twice daily for first seven 7 days, first dose on morning of 08/24, then start 5mg twice daily until discontinued by a physician. 2. You have a hospital follow-up appointment with Dr. Valentin on 08/27 @ 12: 45pm. 3. Please avoid other blood thinners including OTC NSAIDs (non-steroidal anti- inflammatory drugs) such as Motrin or Aleve while on the apixaban. 4. You were found to have mesenteric panniculitis and emphysema on imaging studies while in the hospital. Please consult with your primary physician regarding the need for further workup or treatment of these. It was a pleasure taking care of you! Call if you have any questions or problems. You can reach a [facility] Hospitalist on duty at [facility] 24 hours a day by calling [phone]. Take care of yourself. Eleanor Boo DO [facility] Diet Patient's current hospital diet: Regular Diet Discharge Diet Recommended Diet: Regular Diet Procedures Procedures Performed: TTE Pending Studies Studies pending at discharge: yes List of pending studies: AFP, CA-125, hypercoagulable workup Medical Emergencies . Who to Call and When: Medical Emergencies: If at any time you feel your situation is an emergency, please call 911 immediately. . Non-Emergent Contact Non-Emergency issues call your: Primary Care Provider . . "Provider Documentation" section prepared by Eleanor Boo. .
--- NOTE | 2017-08-23 16:51 | Discharge Summary ---
Discharge Summary Date of Service August 23, 2017. Discharge Summary Admission Date: August 22, 2017 at 17:40 Discharge Date: August 23, 2017 Discharge Disposition: Home Principal Diagnosis: Left Leg DVT mesenteric panniculitis Procedures: TTE Vaccinations: None. Consultations: Hematology-Dr Morales Rodriguez/Rosa Ruano PA-C Pending Studies/Follow-Up: see instructions below. Medication Reconciliation New Medications: Apixaban (Eliquis) 5 Mg Tab 10 MG PO BID for 7 Days, #28 TAB First 7 days of treatment. Apixaban (Eliquis) 5 Mg Tab 5 MG PO BID for 30 Days, #60 TAB Start 5mg twice daily after initial induction week at 10mg twice daily. Hydrocodone/Acetaminophen 5MG/325MG ([place] 5MG/325MG) Tab 1 TAB PO Q6H PRN for Pain for 7 Days, #10 TAB PRN PAIN Continued Medications: Gabapentin (Gabapentin) 300 Mg Cap 300 MG PO HS Multivitamin (Multivitamin) Tab 1 TAB PO HS, TAB Pravastatin Sodium (Pravastatin Sodium) 80 Mg Tab 80 MG PO HS for 90 Days, #90 TAB 3 Refills Venlafaxine Hcl (Effexor) 75 Mg Tab 75 MG PO BID, TAB Discontinued Medications: Anastrozole (Arimidex) 1 Mg Tab 1 TAB PO HS for 90 Days, TAB 1 Refill Admission Information HPI (per Admitting provider): Pt is 72 y/o F with PMH depression, HLD, L breast CA s/p surgery, chemo & radiation presented to ER from PCP office with c/o LLE edema started yesterday. Patient states last night noticed discomfort to left calf with associated edema, erythema and firmness. Reports past 1-2 weeks with some aching to upper thigh. Patient seen in PCP office today and had ultrasound LLE: Extensive LLE DVT from at least the common femoral vein caudally into the proximal calf veins. No DVT is demonstrated right common femoral vein. Denies history of previous DVT/PE. Denies prolonged immobilization or recent injury or surgery. Denies fever/chills, diaphoresis, N/V/D/C, OLIVERA, dizziness, syncope, vision changes, neck pain, CP, SOB, orthopnea, palpitations, cough, sore throat, choking, otalgia, rhinorrhea, abdominal pain, paresthesias, weakness, extremity weakness, other rashes, urinary symptoms, weight loss. Physical Exam (per Admitting): General Appearance: WD/WN, no apparent distress Head: normocephalic, atraumatic Eyes: normal inspection, sclerae normal ENT: hearing grossly normal, pharynx normal, + pertinent finding (Mucous membranes moist) Neck: supple, trachea midline Respiratory/Chest: lungs clear, normal breath sounds, no respiratory distress Cardiovascular: regular rate, rhythm (Rate 90), no murmur, normal peripheral pulses Abdomen/GI: normal bowel sounds, non tender, soft Extremities/Musculoskelatal: + pertinent finding (LLE: Left calf and left foot with erythema, calf with edema and firmness and tenderness to palpation. RLE: Normal appearance and nontender. Full active range of motion bilateral upper and lower extremities. Distal pulses intact bilaterally, brisk cap refill , sensation to light touch) Neurologic/Psych: alert, normal mood/affect (Patient very pleasant), oriented x 3 Skin: warm/dry, + pertinent finding (As above LLE otherwise normal color noted) Hospital Course Total time spent on discharge = 60 minutes This includes examination of the patient, discharge planning, medication reconciliation, and communication with other providers. [place] [address] Discharge VTE/ Non Warfarin Patient Name: Kianna Raymundo Unit Number: [id number] Date of : 1945 Patient Status: Admitted Inpatient Attending Doctor: Eleanor Boo DO DI: VTE Non Warfarin v5 Discharge Instructions Date of Service August 23, 2017. Admission Reason for Admission: Dvt (Deep Venous Thrombosis) Discharge Discharge Diagnosis / Problem: (1) Left leg DVT VTE Date & Time Date of VTE Diagnosis: August 22, 2017 Time of VTE Diagnosis: 16:16 Discharge Goals Goal(s): Therapeutic intervention, Prevent Disease Progression Activity Recommendations Activity Limitations: per Instructions/Follow-up section . Instructions / Follow-Up Instructions / Follow-Up Medication Instructions: Your condition is typically treated with an anticoagulant. Anticoagulants will thin your blood to help prevent new clots. * You should take her medication exactly as directed. * Never skip a dose. * Never take a double dose. If you miss a dose, take it as soon as you remember. Call your Primary Care doctor if you experience any of the following: * Swelling or Pain in your leg * Sudden, continuous pain deep in a muscle * Pain that worsens when you are active or when you stand still for a long time * Chest Pain * Sudden Shortness of Breath * Rapid or pounding heart beat * Fainting * Dizziness * Cough with blood or bloody sputum * Sweating more than normal * Bruises * Heavy or uncontrolled bleeding * Blood in your urine, stool or vomit * Black or tarry stools Caring for Your Self at Home: * Avoid sitting, standing or lying down for long periods without moving your legs and feet * When traveling by car, stop to get out and move around at least once every 3 hours * On long airplane, train or bus rides, get up and move around when possible * If you can't get up, wiggle your toes and tighten your calves to keep your blood moving Follow Up: It is important for you to keep your follow up appointments with your medical provider. ADDITIONAL PROVIDER INSTRUCTIONS: 1. Please take all medications as instructed. You have been started on a new blood thinner, APIXABAN (ELIQUIS), which you will need to take per the following instructions: 10mg twice daily for first seven 7 days, first dose on morning of 08/24, then start 5mg twice daily until discontinued by a physician. 2. You have a hospital follow-up appointment with Dr. Valentin on , 08/27 @ 12: 45pm. 3. Please avoid other blood thinners including OTC NSAIDs (non-steroidal anti- inflammatory drugs) such as Motrin or Aleve while on the apixaban. 4. You were found to have mesenteric panniculitis and emphysema on imaging studies while in the hospital. Please consult with your primary physician regarding the need for further workup or treatment of these. It was a pleasure taking care of you! Call if you have any questions or problems. You can reach a [facility] hospitalist on duty at [facility] 24 hours a day by calling [phone]. Take care of yourself. Eleanor Boo DO [facility] Hospitalist Current Hospital Diet Patient's current hospital diet: Regular Diet Discharge Diet Recommended Diet: Regular Diet Procedures Procedures Performed: TTE Pending Studies Studies pending at discharge: yes List of pending studies: AFP, CA-125, hypercoagulable workup Medical Emergencies . Who to Call and When: Medical Emergencies: If at any time you feel your situation is an emergency, please call 911 immediately. . Non-Emergent Contact Non-Emergency issues call your: Primary Care Provider . . "Provider Documentation" section prepared by Eleanor Boo. . Additional Copies To Mahogany Valentin M.D.
[2017-08-23 16:57] VITALS: BP 129/74; PULSE 89; TEMP 37.4; O2SAT 95
[2017-08-23] MEDS ORDERED: APIXABAN 2.5 MG TAB PO ONE (17:00)
--- NOTE | 2017-08-23 17:35 | Medical Consult ---
Consultation Date of Consultation: August 23, 2017. Attending Physician: Eleanor Boo DO Reason for Consultation: LLE DVT-anticoagulation recommendations History of Present Illness Ms. Raymundo is know to the consulting Medical oncology service for a case of left breast lobular carcinoma, S/P lumpectomy and sentinel lymph suresh biopsy, S /P adjuvant chemotherapy and now she is on anastrozole since early April,. She has been clinically MILAD. She reported to her PCP yesterday for left LE erythema, edema and pain. A Doppler was positive for extensive DVT. She came to ER and CTA was done and negative for PE or recurrent/metastatic disease. She was started on therapeutic Lovenox. Additional history obtained from the patient at bedside. She reports her leg edema, erythema and pain is improved. She denies dyspnea, chest pain or cough. She denies trauma to LLE and no recent surgery or hospitalization. She has not had headaches or dizziness. She reports a good appetite and denies nausea or abdominal pain. She states she has felt somewhat achy on anastrozole but no new focal bone pain. No prior h/o VTE. Past Medical/Surgical History Medical Problems: (1) Acute bronchitis Status: Acute (2) COPD exacerbation Status: Acute (3) Elevated troponin Status: Acute (4) Hypoxia Status: Acute (5) Hypoxia Status: Acute (6) Left leg DVT Status: Acute (7) SOB (shortness of breath) Status: Acute Family History Cancer MOTHER ( of lung CA age 72) Diabetes mellitus Heart disease FATHER ( of [place] age 48) Hypertension Lung disease Social History Smoking Status: Former Smoker Smokeless Tobacco Use: No Alcohol Use: none Drug Use: none Housing Status: lives alone Occupation Status: retired Allergies Coded Allergies: No Known Allergies (Unverified , 08/22/17) Current Inpatient Medications Current Inpatient Medications Medications (Trade) Dose Ordered Sig/Tad Route Start Time Stop Time Status Last Admin Dose Admin Acetaminophen/ Hydrocodone Bitart ([place] 5/325 Tab) 1 tab Q6H PRN PO 08/22/17 17:45 09/05/17 17:44 Acetaminophen (Tylenol Tab) 650 mg Q4H PRN PO 08/22/17 18:00 09/21/17 17:59 08/23/17 05:06 650 MG Al Hydrox/Mg Hydrox/Simethicone (Maalox Max Susp) 15 ml Q4H PRN PO 08/22/17 18:00 09/21/17 17:59 Magnesium Hydroxide (Milk Of Magnesia Susp) 30 ml Q12H PRN PO 08/22/17 18:00 09/21/17 17:59 Ondansetron HCl (Zofran Inj) 4 mg Q6H PRN IV 08/22/17 18:00 09/21/17 17:59 Nitroglycerin (Nitrostat Tab) 0.4 mg UD PRN SL 08/22/17 18:00 09/21/17 17:59 Polyethylene (Miralax Powder Packet) 17 gm DAILY PRN PO 08/22/17 18:00 09/21/17 17:59 Enoxaparin Sodium (Lovenox Inj) 80 mg Q12H SQ 08/22/17 21:00 09/21/17 20:59 Future Hold 08/23/17 09:37 80 MG Ioversol (Optiray 320) 100 ml UD PRN IV 08/22/17 19:00 08/26/17 18:59 Gabapentin (Neurontin Cap) 300 mg HS PO 08/23/17 21:00 09/22/17 20:59 Multivitamins (Multivitamin Tab) 1 tab HS PO 08/23/17 21:00 09/22/17 20:59 Venlafaxine HCl (effeXOR TAB) 75 mg BID PO 08/23/17 09:00 09/22/17 08:59 08/23/17 07:57 75 MG Pravastatin Sodium (Pravachol Tab) 80 mg HS PO 08/23/17 21:00 09/22/17 20:59 Review of Systems Constitutional: No fever, No weight loss Respiratory: No cough, No sputum, No shortness of breath Cardiovascular: No chest pain Abdomen: No pain, No nausea Musculoskeletal: + swelling, + calf pain Neurologic: No vertigo Physical Exam Date Time Temp Pulse Resp B/P (MAP) Pulse Ox O2 Delivery O2 Flow Rate FiO2 08/23/17 16:57 37.4 89 18 95 Room Air 08/23/17 16:16 Room Air 08/23/17 15:04 37.4 89 18 129/74 (92) 95 Room Air 08/23/17 12:14 Room Air 08/23/17 11:27 36.7 74 18 114/71 (85) 94 Room Air 08/23/17 08:00 Room Air 08/23/17 07:33 36.8 74 17 125/68 (87) 95 Room Air 08/23/17 04:00 Room Air 08/23/17 03:55 37.4 98 18 119/55 (76) 92 Room Air 08/23/17 00:32 37.1 85 20 146/78 (100) 93 Room Air 08/23/17 00:00 Room Air 08/22/17 20:00 37.6 97 20 153/75 93 Room Air 08/22/17 19:44 90 18 140/79 95 Room Air 08/22/17 18:38 92 18 161/97 94 Room Air General Appearance: WD/WN, no apparent distress ENT: hearing grossly normal Neck: no adenopathy Respiratory/Chest: lungs clear, normal breath sounds Cardiovascular: regular rate, rhythm Abdomen/GI: non tender, soft, no organomegaly Extremities/Musculoskelatal: no calf tenderness, no pedal edema, + swelling ( LLE calf) Neurologic/Psych: alert, oriented x 3 Skin: warm/dry Laboratory Results Last 24 Hours Test 08/22/17 17:21 08/22/17 18:10 08/22/17 18:30 08/22/17 23:07 White Blood Count 10.85 K/uL Red Blood Count 3.93 M/uL Hemoglobin 12.3 g/dL Hematocrit 35.8 % Mean Corpuscular Volume 91.1 fL Mean Corpuscular Hemoglobin 31.3 pg Mean Corpuscular Hemoglobin Concent 34.4 g/dl RDW Standard Deviation 44.7 fL RDW Coefficient of Variation 13.3 % Platelet Count 218 K/uL Mean Platelet Volume 9.3 fL Sodium Level 136 mmol/L Potassium Level 3.9 mmol/L Chloride Level 103 mmol/L Carbon Dioxide Level 25 mmol/L Anion Gap 8.0 mmol/L Blood Urea Nitrogen 14 mg/dl Creatinine 0.75 mg/dl Est Creatinine Clear Calc Drug Dose 68.0 ml/min Estimated GFR () 93.6 Estimated GFR (Non- 80.8 BUN/Creatinine Ratio 18.8 Random Glucose 82 mg/dl Calcium Level 9.1 mg/dl Total Bilirubin 0.6 mg/dl Aspartate Amino Transf (AST/SGOT) 25 U/L Alanine Aminotransferase (ALT/SGPT) 25 U/L Alkaline Phosphatase 84 U/L Troponin I < 0.015 ng/ml < 0.015 ng/ml Total Protein 7.6 gm/dl Albumin 3.7 gm/dl Globulin 3.9 gm/dl Albumin/Globulin Ratio 0.9 Erythrocyte Sedimentation Rate 30 mm/hr D-Dimer 4300 ug/L FEU Carcinoembryonic Antigen 1.8 ng/ml Prothrombin Time 12.0 SECONDS Prothromb Time International Ratio 1.1 Activated Partial Thromboplast Time 26.5 SECONDS Partial Thromboplastin Ratio 1.0 Test 08/23/17 00:00 08/23/17 05:41 08/23/17 11:58 Urine Color YELLOW Urine Appearance CLEAR Urine pH 8.0 Urine Specific [place] 1.036 Urine Protein NEG Urine Glucose (UA) NEG Urine Ketones NEG Urine Occult Blood TRACE Urine Nitrite NEG Urine Bilirubin NEG Urine Urobilinogen NEG Urine Leukocyte Esterase NEG Urine WBC (Auto) 0 /hpf Urine RBC (Auto) 0-4 /hpf Urine Hyaline Casts (Auto) 0 /lpf Urine Epithelial Cells (Auto) 0-5 /lpf Urine Bacteria (Auto) NEG White Blood Count 9.99 K/uL Red Blood Count 3.57 M/uL Hemoglobin 11.2 g/dL Hematocrit 32.7 % Mean Corpuscular Volume 91.6 fL Mean Corpuscular Hemoglobin 31.4 pg Mean Corpuscular Hemoglobin Concent 34.3 g/dl RDW Standard Deviation 44.6 fL RDW Coefficient of Variation 13.3 % Platelet Count 202 K/uL Mean Platelet Volume 8.8 fL Activated Partial Thromboplast Time 30.9 SECONDS Partial Thromboplastin Ratio 1.2 Sodium Level 137 mmol/L Potassium Level 3.8 mmol/L Chloride Level 104 mmol/L Carbon Dioxide Level 26 mmol/L Anion Gap 6.0 mmol/L Blood Urea Nitrogen 12 mg/dl Creatinine 0.64 mg/dl Est Creatinine Clear Calc Drug Dose 79.4 ml/min Estimated GFR () 104.8 Estimated GFR (Non- 90.4 BUN/Creatinine Ratio 19.1 Random Glucose 106 mg/dl Calcium Level 8.5 mg/dl Troponin I < 0.015 ng/ml < 0.015 ng/ml CTA from 08/22/17: 1. Allowing for suboptimal image quality, no evidence of pulmonary embolus. 2. Emphysema. No superimposed infiltrate to suggest acute intrathoracic pathology. 3. Coronary artery calcification. 4. Post surgical and posttreatment changes of the lateral left breast with a suspected small seroma in the lumpectomy bed. CT abd/pelvis from 08/23/17: 1. The presence of metastatic disease cannot be adequately assessed by noncontrast exam. Allowing for this, no gross evidence of acute intra-abdominal pathology or neoplastic process. No lymphadenopathy. 2. 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 3. Emphysema. Assessment & Plan 1. Acute LLE extensive DVT in setting of adjuvant treatment of early stage breast cancer, while taking anastrozole * Patient is currently on Lovenox therapeutic dosing, tolerating without issue aside from soreness at injection site * Dr. Maria would like to rule out metastatic disease, so suggested CT of abd/ pelvis, no IV contrast since she had contrast yesterday which makes suboptimal exam, but no gross metastatic disease in abd/pelvis and none seen on CTA of chest * CTA chest negative for PE * Advised to remain off anastrozole as this increases risk of VTE, only real risk factor identified in this patient * Patient has follow up with Dr. Rodriguez in Sep 2017, keep this appt * Informed patient that she should be transitioned to Eliquis or Xarelto per Dr. Rodriguez's preference, to expect to be on for at lest 3 months * Advised to monitor for any unusual bleeding to contact the office should this occur Addendum: Hypercoag work up sent on patient and pending, will need followed up Dr. Maria is rounding attending- please see her addendum. Attending Discussed with Rosa Ruano PA-C and agree with her note. The patient was already discharged same day of consult when I went to see her so I did not see her
[2017-08-23] MEDS ORDERED: MULTIVITAMIN TAB PO SCH (21:00)
[2017-08-23] MEDS ORDERED: GABAPENTIN 300 MG CAP PO SCH (21:00)
[2017-08-23] MEDS ORDERED: PRAVASTATIN SOD 40 MG TAB PO SCH (21:00)
[2017-08-28 14:31] LABS: ANTICARDIOLIPID AB IGA <11 APL (< = 11)
== END 2017-08-23 19:00 | disposition home or self-care (01) | DRG 300 ==
LOC: C.EDB 16:50 → C.MED 17:40 → ENRESERV 18:53
PROVIDERS: ADMIT Hospitalist; ATTEND Hospitalist
DX: I82.402 Acute embolism and thrombosis of unspecified deep veins of left lower extremity (principal); K65.4 Sclerosing mesenteritis; F41.9 Anxiety disorder, unspecified; F32.9 Major depressive disorder, single episode, unspecified; E78.5 Hyperlipidemia, unspecified; G62.0 Drug-induced polyneuropathy; Z86.718 Personal history of other venous thrombosis and embolism; Z90.10 Acquired absence of unspecified breast and nipple; Z87.891 Personal history of nicotine dependence; Z92.3 Personal history of irradiation; Z92.21 Personal history of antineoplastic chemotherapy; Z85.3 Personal history of malignant neoplasm of breast; Z80.1 Family history of malignant neoplasm of trachea, bronchus and lung; Z83.3 Family history of diabetes mellitus; Z82.49 Family history of ischemic heart disease and other diseases of the circulatory system

== ENCOUNTER 2023-12-20 17:36 | Inpatient (IN) ==
--- NOTE | 2023-12-20 18:20 | Emergency Department Note ---
Impression & Plan Acute CHF, Edema, Elevated troponin, Hypokalemia ED Provider Note NAME: GRAZYNA FARRIS AGE: 78 SEX: F : 1945 ARRIVES VIA: Ambulance INFORMANT: Patient ED PROVIDER(S): Jb Unger DO CHIEF COMPLAINT: Shortness of breath and leg swelling HPI: Patient is a 78-year-old female with a past medical history of metastatic breast cancer receiving chemotherapy with a history of anxiety, depression, and DVT on Eliquis who presents to the ER for shortness of breath which has been getting worse for the past week associated with significant swelling in the bilateral lower extremities tracking up to the waist. She notes she has never had this before. She denies any headache or change in vision. No chest pain or belly pain. No nausea, vomiting, or diarrhea. No dysuria, urgency, or frequency. No other exacerbating or remitting factors. ADDITIONAL HISTORY OBTAINED: Per HPI Chronic Medical/Social Conditions Affecting Care: Per HPI PAST MEDICAL HISTORY:See Below PAST SURGICAL HISTORY:See Below FAMILY HISTORY:See Below SOCIAL HISTORY:See Below HOME MEDICATIONS:See Below ALLERGIES:See Below VITALS:See Below PHYSICAL EXAMINATION: GENERAL: Sitting up in bed, alert, well appearing, well nourished, no distress, non-toxic EYE EXAM: normal conjunctiva. OROPHARYNX: mucous membranes are moist LUNGS: Clear to auscultation. Normal chest wall mechanics HEART: no murmurs, S1 normal and S2 normal ABDOMEN: abdomen soft, non-tender, normo-active bowel sounds, no masses, no rebound or guarding. UPPER EXTREMITIES: upper extremities are grossly normal. LOWER EXTREMITIES: Pitting edema tracking up to the upper legs. Calves are equal bilaterally. NEURO EXAM: Normal sensorium, cranial nerves II-XII grossly intact, normal speech, no gross weakness of arms, no gross weakness of legs. MEDICAL DECISION MAKING: Patient is a 78-year-old female who presents to the ER for the stated complaint. IV was established photographs obtained. Labs show no significant leukocytosis. Mild anemia 11.2. BMP with a mild hypokalemia at 3.3. Creatinine 1.5. Troponin was elevated at 14. UA was clean. Patient had diffuse pitting edema. Chest x-ray suggestive of CHF. EKG was nondiagnostic. Patient was given oral potassium and IV Lasix updated at bedside discussed with the hospitalist for further evaluation management treatment of her likely new onset CHF in the setting of worsening shortness of breath and worsening pitting edema. Consults/Care Managements Discussions: Per MDM Triage Nursing notes reviewed. Limited review of prior medical records performed Vital Signs: reviewed and remarkable for no significant abnormalities Differential diagnosis: Differential diagnoses includes but is not limited to pneumonia, bronchitis, COPD/Asthma exacerbation, pneumothorax, pulmonary embolism, congestive heart failure, acute coronary syndrome ER treatment provided: See below Diagnostics interpreted by me include EKG and cardiac monitoring as listed below: -Cardiac Monitoring: An order was placed for continuous cardiac monitoring. The monitor shows a rate of 101 with sinus rhythm. -ECG: Sinus tachycardia rate of 103 Normal axis No PVCs QTc 432 -Laboratory studies:Interpreted by me as stated above in MDM and shown below. Imaging studies: Xrays: As interpreted by me: Portable AP upright 1 view of the chest shows pulmonary congestion CTs show: none Procedures:none Critical Care: None Past Med/Surg History Problem List (Updated 12/05/17 @ 22:24 by Jasper) Hypokalemia (Acute) Elevated troponin (Acute) Edema (Acute) Acute CHF (Acute) 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 breast in female, estrogen receptor positive (Chronic 03/16/15) Dyslipidemia (Chronic) Depression (Chronic) Anxiety (Chronic) History of tobacco abuse (Chronic) DVT (deep venous thrombosis) History of carpal tunnel surgery (Chronic) S/P partial mastectomy (Chronic) H/O lymph node biopsy (Chronic) Social History Smoking Status: Former smoker Tobacco Type: Cigarettes Preferred Language: Czech Beliefs That Will Affect Care: None Feels Safe at Home: Yes Allergies Allergies Allergy/AdvReac Type Severity Reaction Status Date / Time No Known Allergies Allergy Verified 12/20/23 21:26 Home Meds Home Medications Medication Instructions Recorded Confirmed pravastatin 80 mg tablet 80 mg PO HS 08/30/23 12/20/23 venlafaxine 150 mg 150 mg PO HS 08/30/23 12/20/23 capsule,extended release 24 hr acetaminophen 325 mg tablet 325 mg PO QID PRN Pain 12/20/23 12/20/23 (Tylenol) ondansetron HCl 4 mg tablet 4 mg PO Q6 PRN Nausea 12/20/23 12/20/23 potassium, sodium phosphates 280 1 packet PO QAM 12/20/23 12/20/23 mg-160 mg-250 mg oral powder packet (Phos-NaK) Previous Rx's Medication Instructions Recorded apixaban 5 mg tablet (Eliquis) 5 mg PO BID #74 tabs 08/30/23 Results & Data (ED) Vital Signs Vital Signs - 24 hr 12/20/23 18:13 12/20/23 18:14 12/20/23 19:00 Temperature 36.7 C Temperature Source Oral Pulse Rate 78 90 Pulse Rate [Apical] 100 H Pulse Rhythm Regular Pulse Rhythm [Apical] Respiratory Rate 16 22 20 Respiratory Effort / Characteristics Non-Labored Spontaneous Non-Labored Spontaneous Respiratory Depth Normal Normal Respiratory Pattern Regular Blood Pressure 138/79 Blood Pressure [Right Arm] 129/68 Blood Pressure Mean 98 Blood Pressure Mean [Right Arm] 88 Pulse Oximetry 93 96 94 Oxygen Delivery Method Room Air Room Air Room Air Sepsis Recent Fever Within 48 Hours No Sepsis New/Unexplained Change in Mental Status No Sepsis Action Taken by Nursing No Action Required 12/20/23 19:06 12/20/23 21:00 Temperature Temperature Source Pulse Rate 104 H Pulse Rate [Apical] 107 H Pulse Rhythm Pulse Rhythm [Apical] Regular Respiratory Rate 20 Respiratory Effort / Characteristics Non-Labored Spontaneous Respiratory Depth Normal Respiratory Pattern Regular Blood Pressure Blood Pressure [Right Arm] 155/78 H Blood Pressure Mean Blood Pressure Mean [Right Arm] 103 Pulse Oximetry 96 Oxygen Delivery Method Room Air Sepsis Recent Fever Within 48 Hours Sepsis New/Unexplained Change in Mental Status Sepsis Action Taken by Nursing Laboratory Data 12/20/23 18:20 12/20/23 19:25 Lab Results 12/20/23 12/20/23 12/20/23 Range/Units 18:20 19:06 19:25 WBC 9.30 (4.8-10.8) K/ul RBC 3.85 L (4.20-5.40) M/uL Hgb 11.2 L (12.0-16.0) g/dl Hct 34.1 L (37.0-47.0) % MCV 88.6 (80.0-100.0) fL MCH 29.1 (25.0-34.0) pg MCHC 32.8 (32.0-36.0) g/dL RDW Std Deviation 51.8 H (36.4-46.3) fL RDW Coeff of Hunter 16.0 H (11.5-14.5) % Plt Count 235 (130-400) K/uL MPV 10.1 (9.4-12.4) fL Immature Gran % (Auto) 0.3 % Neut % (Auto) 64.5 % Lymph % (Auto) 21.0 % [place] % (Auto) 12.5 % Eos % (Auto) 1.1 % Baso % (Auto) 0.6 % Neut # (Auto) 6.00 (1.40-6.50) K/uL Lymph # (Auto) 1.95 (1.20-3.40) K/uL [place] # (Auto) 1.16 H (0.11-0.59) K/uL Eos # (Auto) 0.10 (0.00-0.50) K/uL Baso # (Auto) 0.06 (0.00-0.20) K/uL Immature Gran # (Auto) 0.03 (0.01-0.20) K/uL Sodium 134 L (136-145) mmol/L Potassium TNP 3.3 L Chloride 105 (98-107) mmol/L Carbon Dioxide 21 (21-32) mmol/L Anion Gap 8 (3-11) BUN 20 (6-23) mg/dl Creatinine 1.57 H (0.6-1.2) mg/dl Est Cr Clr Drug Dosing 29.5 ml/min Est GFR ( Amer) 36.7 ml/min Est GFR (Non-Af Amer) 31.7 ml/min BUN/Creatinine Ratio 12.7 (10-20) Glucose 98 (70-99(Fasting)) mg/dl Calcium 9.7 (8.6-10.3) mg/dl Total Bilirubin 0.3 (0.2-1.0) mg/dl AST TNP 60 H ALT 22 (7-52) U/L Alkaline Phosphatase 170 H (34-104) U/L Troponin I High Sens 14.3 H (0-14) pg/ml Total Protein 7.3 (6.0-8.3) gm/dl Albumin 3.8 (3.4-5.0) gm/dl Globulin 3.5 (2.5-4.0) gm/dl Albumin/Globulin Ratio 1.1 (0.9-2) Lipase 48 (11-82) U/L Urine Color Yellow Urine Appearance Clear (Clear) Urine pH 7.5 (4.5-7.5) Ur Specific [place] 1.006 (1.000-1.030) Urine Protein 2+ H (Negative) Urine Glucose (UA) Negative (Negative) Urine Ketones Negative (Negative) Urine Blood 1+ H (Negative) Urine Nitrite Negative (Negative) Urine Bilirubin Negative (Negative) Urine Urobilinogen Negative (Negative) Ur Leukocyte Esterase Negative (Negative) Urine WBC (Auto) 0-5 (0-5) /hpf Urine RBC (Auto) 0-2 (0-2) /hpf U Hyaline Cast (Auto) 0-2 (0-2) /lpf U Epithel Cells (Auto) 0-2 (0-2) /hpf Urine Bacteria (Auto) None Seen (None Seen) Administered Medications Apixaban (Apixaban 5 Mg Tablet) 5 mg PO BID SHAILA Stop: 01/19/24 22:22 Last Admin: 12/20/23 23:11 Dose: 5 mg Documented By: ALFONSO Discontinued Medications Furosemide (Furosemide 40 Mg/4 Ml Vial) 40 mg IV NOW STA Stop: 12/20/23 20:13 Last Admin: 12/20/23 21:03 Dose: 40 mg Documented By: ALFONSO Potassium Chloride (Potassium Chloride Crtab 20 Meq Tabcr) 40 meq PO NOW STA Stop: 12/20/23 20:12 Last Admin: 12/20/23 21:03 Dose: 40 meq Documented By: ALFONSO Imaging Data Radiologist's Impression: Chest X-Ray 12/20/23 18:14 SINGLE VIEW CHEST CLINICAL HISTORY: Atypical chest pain. FINDINGS: An AP, portable, upright chest radiograph is compared to study dated 10/19/2015 and correlated with chest CT dated 08/30/2023. The heart is enlarged noting atherosclerotic calcification of the thoracic aorta. There is prominence of the pulmonary vasculature. Emphysema and chronic interstitial thickening is similar to previous. There are small pleural effusions with dependent scarring/atelectasis. No pneumothorax is seen. The skeletal structures are osteopenic. There is chronic deformity of the right clavicle. Degenerative change is noted in the shoulders and spine. IMPRESSION: 1. Cardiomegaly and emphysema. 2. Prominence of the pulmonary vasculature may represent fluid overload/congestive change. Correlate clinically. 3. Small pleural effusions. ACT 112: Negative or not required by law. Electronically signed by: Maxime Salamanca M.D. 12/20/2023 7:40 PM Discharge Plan Visit Data Chief Complaint: Swelling/Edema to Extremity Stated Complaint: SWELLING, SOB ED Provider: Jb Unger Discharge Problem: Acute CHF, Edema, Elevated troponin, Hypokalemia Discharge Instructions Interventions: ED Discharge Assessment Last Done: 12/20/23 22:23 Discharge Problem: Acute CHF Qualifiers: Heart failure type: unspecified Qualified Code(s): I50.9 - Heart failure, unspecified Edema Qualifiers: Edema type: unspecified Qualified Code(s): R60.9 - Edema, unspecified
[2023-12-20 19:01] LABS: Hematocrit (blood only) 34.1 % (37.0-47.0); Hemoglobin 11.2 g/dl (12.0-16.0); Mean Corpuscular Hemoglobin 29.1 pg (25.0-34.0); Mean Corpuscular Hgb Conc 32.8 g/dL (32.0-36.0); Mean Corpuscular Volume 88.6 fL (80.0-100.0); Mean Platelet Volume 10.1 fL (9.4-12.4); Platelet Count 235 K/uL (130-400); RDW Standard Deviation 51.8 fL (36.4-46.3); Red Blood Count 3.85 M/uL (4.20-5.40)
[2023-12-20 19:06] LABS: Basophils # (auto) 0.06 K/uL (0.00-0.20); Basophils % (auto) 0.6 %; Eosinophils % (auto) 1.1 %; Immature Granulocytes # (auto) 0.03 K/uL (0.01-0.20); Immature Granulocytes % (auto) 0.3 %; Lymphocytes # (auto) 1.95 K/uL (1.20-3.40); Monocytes # (auto) 1.16 K/uL (0.11-0.59); Monocytes % (auto) 12.5 %; Neutrophils % (auto) 64.5 %
[2023-12-20 19:11] LABS: Alanine Aminotransferase 22 U/L (7-52); Albumin Globulin Ratio 1.1 (0.9-2); Albumin Level 3.8 gm/dl (3.4-5.0); Alkaline Phosphatase 170 U/L (34-104); Anion Gap 8 (3-11); BUN Creatinine Ratio 12.7 (10-20); Bilirubin,Total 0.3 mg/dl (0.2-1.0); Blood Urea Nitrogen 20 mg/dl (6-23); Calcium 9.7 mg/dl (8.6-10.3); Carbon Dioxide 21 mmol/L (21-32); Chloride 105 mmol/L (98-107); Creatinine Clr Calc Pharmacy 29.5 ml/min; Est GFR (African American) 36.7 ml/min; Est GFR (Non-African American) 31.7 ml/min; Globulin 3.5 gm/dl (2.5-4.0); Glucose 98 mg/dl (70-99(Fasting)); Lipase 48 U/L (11-82); Sodium 134 mmol/L (136-145); Total Protein 7.3 gm/dl (6.0-8.3); Troponin I High Sensitivity 14.3 pg/ml (0-14)
--- NOTE | 2023-12-20 19:41 | XRay Report ---
SINGLE VIEW CHEST CLINICAL HISTORY: Atypical chest pain. FINDINGS: An AP, portable, upright chest radiograph is compared to study dated 10/19/2015 and correlat ed with chest CT dated 08/30/2023. The heart is enlarged noting atherosclerotic calcification of the t horacic aorta. There is prominence of the pulmonary vasculature. Emphysema and chronic interstitial t hickening is similar to previous. There are small pleural effusions with dependent scarring/atelectas is. No pneumothorax is seen. The skeletal structures are osteopenic. There is chronic deformity of th e right clavicle. Degenerative change is noted in the shoulders and spine. IMPRESSION: 1. Cardiomegaly and emphysema. 2. Prominence of the pulmonary vasculature may represent fluid overload/congestive change. Correlate clinically. 3. Small pleural effusions. ACT 112: Negative or not required by law. Electronically signed by: Maxime Salamanca M.D. 12/20/2023 7:40 PM
[2023-12-20 20:06] LABS: Potassium 3.3 mmol/L (3.5-5.1)
[2023-12-20 20:07] LABS: Appearance Urine Clear (Clear); Bacteria Urine Automated None Seen (None Seen); Bilirubin Urine Negative (Negative); Blood Urine 1+ (Negative); Cast Urine Automated 0-2 /lpf (0-2); Color Urine Yellow; Epithelial Cell Urine Auto 0-2 /hpf (0-2); Glucose Urine UA Negative (Negative); Ketones Urine Negative (Negative); Leukocyte Esterase Urine Negative (Negative); Nitrite Urine Negative (Negative); Protein Urine 2+ (Negative); RBC Urine Automated 0-2 /hpf (0-2); Specific Gravity Urine 1.006 (1.000-1.030); Urobilinogen Urine Negative (Negative); WBC Urine Automated 0-5 /hpf (0-5); pH Urine 7.5 (4.5-7.5)
[2023-12-20] MEDS: POTASSIUM CHLORIDE CRTAB 20 MEQ TABCR PO STA (21:03)
[2023-12-20] MEDS: FUROSEMIDE 40 MG/4 ML VIAL IV STA (21:03)
--- OUTSIDE RECORDS SUMMARY | 2023-12-20 21:04 | External Medical Summary | Summary of Care ---
Demographics Address [address] [place] [address] Home Phone Email Address Preferred Language Indian Marital Status Unknown Bahai Affiliation Unknown Race White Ethnic Group Not or Lati no Author Name Unknown Organization [facility] Address [address] [place] [address] Phone [phone] Care Team Providers Care Dice Table Person Name Role Phone Unavailable Primary Care Provider Unavailabl e Reason for Visit * Reason Onset Date Comments Other 12/17/2023 Hydration Encounter Details Date Type Department Care Team (Late st Contact Info) Description 12/17/2023 Telephone Hematology/Oncology Treatment, [place] [address] [place] [address] Morales Rodriguez MD [address] [place] [address] Other (Hydration) Allergies No known active allergiesdocumented as of this encounter (statuses as of 12/17/2023) Medications Medication Sig Dispensed Refills Start Date End Date Status Acetaminophen 325 MG Oral Capsule Take by mouth. Active Venlafaxine HCl ER 150 MG Oral Capsule Extended Release 24 Hour (Effexor XR) TAKE ONE CAPSULE BY MOUTH EVERY DAY 100 Capsule 1 04/03/2023 Active Pravastatin Sodium 80 MG Oral TabletIndications:Dysl ipidemia, goal LDL below 160 TAKE ONE TABLET BY MOUTH EVERY DAY 90 Tablet 1 06/25/2023 Active Potassium & Sodium Phosphates 280-160-250 MG Oral Packet (Phos-Nak)Indications: 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 breast in female, estrogen receptor positive (HCC),Metastasis to bone (HCC),Peritoneal carcinomatosis (HCC),Metastasis to liver (HCC),Hypophosphatemia Take 1 Packet by mouth in the morning. 30 Packet 3 09/13/2023 Active Apixaban 5 MG Oral Tablet (Eliquis)Indications:H istory of DVT (deep vein thrombosis) Take 1 Tablet by mouth in the morning and 1 Tablet before bedtime. 180 Tablet 1 09/18/2023 Active documented as of this encounter (statuses as of 12/17/2023) Active Problems Problem Noted Date Diagnosed Date Hypercalcemia 12/17/2023 Metastasis to bone 09/13/2023 Metastasis to liver 09/13/2023 Peritoneal carcinomatosis 09/13/2023 Granuloma annulare 01/23/2021 Malignant neoplasm of upper- outer quadrant of left breast in female, estrogen receptor positive 05/16/2020 Anxiety, generalized 05/16/2020 Malignant neoplasm of centra l portion of left breast in female, estrogen receptor positive 09/23/2018 History of DVT (deep vein thrombosis) 09/23/2018 Age-related nuclear cataract, left 04/21/2018 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 Mixed dyslipidemia 01/07/2003 9 Overview: Per Lipid Taxonomy. Anxiety 01/07/2003 08/23/2022 Other (abnormal) findings on radiological examination of breast 01/07/2003 06/03/2015 HISTORY OF TOBACCO USE 01/07/200302/16 Menopause 01/07/2003 02/16/2015 Osteoporosis 01/07/2003 02/16/2015 Tobacco use disorder 017 documented as of this encounter (statuses as of 12/17/2023) Immunizations Name Administration Dates Next Due COVID-19 mRNA, LNP-s, No Pre serve, 2-Dose Series (Platypus Craft) 01/24/2021,06/29/2020,06/08/2020 COVID-19, LNP-s, No Preserve , Adam-sucrose, Ages 12+ (Pfizer) 09/05/2021 COVID-19, MRNA-LNP, 23-24, P F, 30 MCG/0.3 mL, 12 YRS AND ABOVE, IM (PFIZER-Comirnaty) 01/16/2023 Covid-19, Mrna, Lnp-s, Pf, B ivalent, 30 Mcg, IM, 12 yrs and above (Platypus Craft) 01/09/2022 Pneumococcal Conjugate Vacc, 13 Valent (Prevnar) 02/16/2015 Pneumococcal Polysaccharide PPV23 (Pneumovax) 01/27/2013,06/22/2010(Deferred: Patient Refused) RSV Vac., Recomb, Adjuvant, PF,0.5 Ml (Arexvy) 01/11/2023 Season Influenza, Cell Cultu re, 18+ Yrs, With Preserv (Flucelvax) 12/25/2017 Season Influenza, Quad, PF, Adjuvanted, 65+ Yrs, IM (FLUAD) 12/26/2022,12/29/2019 Seasonal Influenza Virus Vac cine, Unspecified Formulation 12/26/2021,01/12/2021 Seasonal Influenza, Split, I IV3, With Preserve, Inj 01/06/2017,01/14/2015,01/18/2014,01/27,12/30/2011,01/31/2011,02/03/2010 ,02/21/2008 Seasonal Influenza, Trivalen t, High Dose, No Preserve, IM 01/05/2019,12/25/2017,01/12/2016 TDAP (age 10 and older)(Boostrix) 08/04/2016 Varicella Zoster Vaccine (Adult) 02/22/2014 Zoster Vaccine Recombinant (Shingrix) 11/22/2019 ,02/18/2019 documented as of this encounter Social History Tobacco Use Types Packs/Day Years Used Date Smoking Tobacco: Former Cigarettes 0.5 30 0 05/24/1985 - 05/24/2015 Smokeless Tobacco: Never Comments:5-6 cig/day, Cut do wn from 1 pack a day. Alcohol Use Standard Drinks/Week Comments No 0 (1 standard drink = 0.6 oz pur e alcohol) Quit 29 years ago PHQ-2 Answer Date Recorded PHQ Adult Total Score 0 04/11/2023 Hunger Vital Sign Answer Date Recorded Within the past 12 months, y ou worried that your food would run out before you got the money to buy more. Never true 04/11/20 23 Within the past 12 months, t he food you bought just didn't last and you didn't have money to get more. Never true 04/11/2023 Childcare Answer Date Recorded Do you feel overwhelmed with taking care of a child, family member or friend? No 04/11/2023 Does your family need help f inding childcare? (Household - for ages 0-17 years) Not on file 04/11/2023 Clothing Answer Date Recorded Have you been unable to get clothing when it was really needed? No 04/11/2023 Is your family able to get c lothes or diapers when needed? (Household - for ages 0-17 years) Not on file 04/11/2023 Personal Safety Answer Date Recorded Do you feel unsafe or have concerns for your saf ety? No 04/11/2023 Do you have concerns for you r family's safety? (Household - for ages 0-17 years) Not on file 04/11/2023 Utilities Answer Date Recorded Do you have trouble paying y our heating, water, or electric bill? No 04/11/2023 Is your family able to pay t he heat, water, or electric bill? (Household - for ages 0-17 years) Not on file 04/11/2023 Does your family have access to good internet? (Household - for ages 0-17 years) Not on file 04/11/2023 Employment Status Answer Date Recorded Are you unemployed or without regular income? No 04/11/2023 Does the household have a re gular source of income? (Household - for ages 0-17 years) Not on file 04/11/2023 Social Connections Answer Date Recorded How often do you feel lonely or isolated from th ose around you? Never 04/11/2023 Financial Resource Strain Answer Date R ecorded Do you have any trouble payi ng for your medications, or do you think you might in the future? No 04/11/2023 Does your family have troubl e paying for medicine? (Household - for ages 0-17 years) Not on file 04/11/2023 Transportation Needs Answer Date Record ed READ ONLY Do you have troubl e getting a ride to medical visits or work? Never True 04/11/2023 Does your family have a hard time getting a ride to doctors visits? (Household - for ages 0-17 years) Not on file 04/11/2023 Has lack of transportation k ept you from medical appointments, meetings, work, or from getting things needed for daily living? Check all that apply. (Adult - for ages 18 years and over) Not on file 04/11/2023 Do you (or your family) have trouble finding or paying for a ride (transportation)? (Household - for ages 0-17 years) Not on file 04/11/2023 Housing Stability Answer Date Recorded Do you currently live in a s helter or have no steady place to sleep at night? No 04/11/2023 READ ONLY Do you think you a re at risk of becoming homeless? No 04/11/2023 Does your family worry about paying for your home or becoming homeless? (Household - for ages 0-17 years) Not on file 1 06/12/2022 Are you homeless or worried that you might be in the future? (Adult - for ages 18 years and over) Not on file Are you (or your family) radha eless or worried that you might be in the future? (Household - for ages 0-17 years) Not on file Food Insecurity Answer Date Recorded Do you need food for this week? No 04/11/2023 Are you able to get enough f ood for your family? (Household - for ages 0-17 years) Not on file 04/11/2023 Does your family need food t his week? (Household - for ages 0-17 years) Not on file 04/11/2023 Do you always have enough fo od for your family? (Household - for ages 0-17 years) Not on file 04/11/2023 Sex and Gender Information Value Date Recorded Sex Assigned at Female 04/06/2021 10:05 AM EST Gender Identity Female 04/06/2021 10:05 AM EST Sexual Orientation Straight 04/06/2021 10 :05 AM EST Job Start Date Occupation Industry Not on file Not on file Not on file documented as of this encounter Miscellaneous Notes * Telephone Encounter - Nilsa Baker LPN - 12/17/2023 9:18 AM EDT Order received for Hydration, [place] plan placed and sent to Provider. Patient is aware per MD entry 12/17/2023 documented in this encounter Plan of Treatment Upcoming Encounters Date Type Department Care Team (Late st Contact Info) Description 12/17/2023 1:15 PM EDT Hem/Onc Treatment Hematology/Oncology Treatment, [address] [place] [phone] Le[place], Chair [address] Hem Onc [address] [place] [address] 01/07/2024 2:45 PM EDT Office Visit Hematology/Oncology [facility] [address] [place] [address] Morales Rodriguez MD [address] [place] [address] 01/13/2024 10:20 AM EDT Laboratory Laboratory [address] [place] [phone] [address] [place] [address] 01/14/2024 1:30 PM EDT Hem/Onc Treatment Hematology/Oncology Treatment, [place] [address] [place] [address] Leatha, Chair 5 Hem Onc Sc[address]ery [address] [place] [address] 03/16/2024 1:00 PM EST Office Visit Family Medicine [address] [place] [phone] Mahogany Valentin MD [address] [place] [address] [place] [address] 03/20/2024 1:30 PM EST Imaging Radiology [address] [place] [address] 04/13/2024 1:00 PM EST Nurse Only Ancillary [address] [place] [address] [place], Nurse Annual Wellness [address] [place] [address] [place] [address] Health Maintenance Due Date Last Done Comments DXA Scan 01/17/2023 01/18/2020, 05/04/2016 COVID-19 Vaccine ( season) 2023 01/16/2023, 01/09/2022, 09/05/2021, Additional history exists Influenza Vaccine (FLU shot) (#1) 2023 12/26/2022, 12/26/2022, 12/26/2021, Additional history exists Depression Screening 04/11/2024 04/11/2023 DTap/Tdap Vaccines (2 - Td or Tdap) 08/04/2026 08/04/2016 Fecal Occult Blood Test Discontinued 01/03/2009 Colonoscopy Discontinued 05/01/2013 Colorectal Cancer Screening Discontinued Pneumococcal Vaccine: 65+ Years Completed 02/16/2015, 01/27/2013 Zoster Vaccines Completed 11/22/2019, 01/22, 02/22/2014 Cologuard Discontinued HPV (Gardasil) Vaccine Aged Out No lo nger eligible based on patient's age to complete this topic Hepatitis B Vaccine Aged Out No longe r eligible based on patient's age to complete this topic MENINGOCOCCAL (MENACTRA/MENVEO) Aged Out No longer eligible based on patient's age to complete this topic Sigmoidoscopy Discontinued documented as of this encounter Medical Devices Implanted Type Area Gamma Ray Operator Device Identifier Shelf Expiration Date Model / Serial / Lot Port Power Mri W/8fr Cath - [id number] Implanted:Qty : 1 on 05/25/2015 by Florence Mayfield MD at OR [facility] Left: Subclavian CR BARD : PERIPHERAL VASCULAR 08/17/2016 [id number] / / [id number] documented as of this encounter
--- OUTSIDE RECORDS SUMMARY | 2023-12-20 21:04 | External Medical Summary | Summary of Care ---
Demographics Address [address] [place] [address] Home Phone Email Address Preferred Language French Marital Status Unknown Confucianism Affiliation Unknown Race White Ethnic Group Not or Lati no Author Name Unknown Organization [facility] Address [address] [facility] [place] [address] Phone [phone] Care Team Providers Care Clerical Car Checker Name Role Phone Unavailable Primary Care Provider Unavailabl e Reason for Visit * Reason Comments Medication Refill Encounter Details Date Type Department Care Team (Late st Contact Info) Description 12/17/2023 Refill Family Medicine [address] [phone] Marsha Valentin MD [address] [place] [address] [place] [address] Dyslipidemia, goal LDL below 160 Allergies No known active allergiesdocumented as of this encounter (statuses as of 12/18/2023) Medications Medication Sig Dispensed Refills Start Date End Date Status Acetaminophen 325 MG Oral Capsule Take by mouth. Active Venlafaxine HCl ER 150 MG Oral Capsule Extended Release 24 Hour (Effexor XR) TAKE ONE CAPSULE BY MOUTH EVERY DAY 100 Capsule 1 04/03/2023 Active Potassium & Sodium Phosphates 280-160-250 MG Oral Packet (Phos-Nak)Indication s: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 breast in female, estrogen receptor positive (HCC),Metastasis to bone (HCC),Peritoneal carcinomatosis (HCC),Metastasis to liver (HCC),Hypophosphatem ia Take 1 Packet by mouth in the morning. 30 Packet 3 09/13/2023 Active Apixaban 5 MG Oral Tablet (Eliquis)Indications :History of DVT (deep vein thrombosis) Take 1 Tablet by mouth in the morning and 1 Tablet before bedtime. 180 Tablet 1 09/18/2023 Active Pravastatin Sodium 80 MG Oral TabletIndications:Dy slipidemia, goal LDL below 160 TAKE ONE TABLET BY MOUTH EVERY DAY 90 Tablet 1 12/18/2023 Active Pravastatin Sodium 80 MG Oral TabletIndications:Dy slipidemia, goal LDL below 160 TAKE ONE TABLET BY MOUTH EVERY DAY 90 Tablet 1 06/25/2023 Discontinue d(Refill) documented as of this encounter (statuses as of 12/18/2023) Active Problems Problem Noted Date Diagnosed Date [...] as of this encounter (statuses as of 12/18/2023) Resolved Problems Problem Noted Date Diagnosed Date [...] Overview: Per Lipid Taxonomy. Mixed dyslipidemia 01/07/2003 Overview: Per Lipid Taxonomy. Anxiety 01/07/2003 08/23/2022 Other (abnormal) findings on radiological examination of breast 01/07/2003 06/03/2015 HISTORY OF TOBACCO USE 01/07/200302/16 Menopause 01/07/2003 02/16/2015 Osteoporosis 01/07/2003 02/16/2015 Tobacco use disorder 017 documented as of this encounter (statuses as of 12/18/2023) Immunizations Name Administration Dates Next Due COVID-19 mRNA, LNP-s, No Pre serve, 2-Dose Series ([place]) 01/24/2021,06/29/2020,06/08/2020 COVID-19, LNP-s, No Preserve , Adam-sucrose, Ages 12+ (Pfizer) 09/05/2021 COVID-19, MRNA-LNP, 23-24, P F, 30 MCG/0.3 mL, 12 YRS AND ABOVE, IM (PFIZER-Comirnaty) 01/16/2023 Covid-19, Mrna, Lnp-s, Pf, B ivalent, 30 Mcg, IM, 12 yrs and above (Pfizer) 01/09/2022 Pneumococcal Conjugate Vacc, 13 Valent (Prevnar) [...] encounter Miscellaneous Notes * Telephone Encounter - Carrie Esparza RPh - 12/18/2023 4:12 PM EDTSigned Prescriptions: Disp Refills Pravastatin Sodium 80 MG Oral Tablet 90 Tab*1 Sig: TAKE ONE TABLET BY MOUTH EVERY DAYAuthorizing Provider: MARSHA VALENTIN User: CARRIE ESPARZA- * Telephone Encounter - Hattie Guerrero CPhT - 12/18/2023 11:42 AM EDT Did you pend patient's preferred pharmacy and medication before forwarding?yes Pharmacy: [facility] Pending Prescriptions: Disp Refills Pravastatin Sodium 80 MG Oral Tablet 90 Tab*1 Sig: TAKE ONE TABLET BY MOUTH EVERY DAY Last Visit: 09/10/2023 (in office), Visit date not found (telemedicine) Next Visit: 03/16/2024 If no future appointments scheduled, and last appointment is greater than a year ago, please schedule patient for a follow-up appointment Last date the medication was ordered: 06/25/23 Is this request for a controlled substance?No Urine Drug Screen:No results found for this or any previous visit. Patient Phone Numbers Labs: Lab Results Component Value Date/Time CREAT 1.4 (H) 12/16/2023 11:19 AM CREAT 0.77 05/16/2023 12:00 AM CREAT 0.6 05/05/2020 08:38 AM POTASSIUM 4.4 12/16/2023 11:19 AM POTASSIUM 3.8 05/16/2023 12:00 AM POTASSIUM 5.1 05/05/2020 08:38 AM TSH 1.610 05/16/2023 12:00 AM TSH 2.14 01/09/2016 10:07 AM LDL 124 03/28/2023 11:16 AM LDL 136 (H) 05/05/2020 08:38 AM LDL NOT APPLICABLE 05/05/2020 08:38 AM LDLCALC 150 07/20/2007 08:00 AM ALT 28 12/16/2023 11:19 AM ALT 20 05/05/2020 08:38 AM HGBA1C 6.1 (H) 03/28/2023 11:16 AM HGBA1C 6.1 (H) 05/05/2020 08:38 AM documented in this encounter Plan of Treatment Upcoming Encounters Date Type Department Care Team (Late st Contact Info) Description 12/19/2023 10:20 AM EDT Laboratory Laboratory [address] [place] [phone] [address] [place] [address] 01/07/2024 2:45 PM EDT Office Visit Hematology/On[facility] [place] [phone] Morales Rodriguez MD [address] [place] [address] 01/13/2024 10:20 AM EDT Laboratory Laboratory [address] [place] [phone] [place], Lab [address] [place] [address] 01/14/2024 1:30 PM EDT Hem/Onc Treatment Hematology/Oncology Treatment, [place] [facility] [phone] Leatha, Chair 5 Hem Onc Scen[address] [place] [address] 03/16/2024 1:00 PM EST Office Visit Family Medicine [address] [place] [phone] Marsha Valentin MD [address] [place] [address] [place] [address] 03/20/2024 1:30 PM EST Imaging Radiology [address] [place] [address] 04/13/2024 1:00 PM EST Nurse Only Ancillary [address] [place] [address] [place], Nurse Annual [address] [place] [address] Health Maintenance Due Date Last Done Comments DXA Scan 01/17/2023 01/18/2020, 05/04/2016 COVID-19 Vaccine (2022- season) 2023 01/16/2023, 01/09/2022, 09/05/2021, Additional history [...] this encounter Medical Devices Implanted Type Area Electronic Engineering Technician Device Identifier Shelf Expiration Date Model / Serial / Lot Port Power Mri W/8fr Cath - [id number] Implanted:Qty : 1 on 05/25/2015 by Florence Mayfield MD at [facility] Left: Subclavian CR BARD : PERIPHERAL VASCULAR 08/17/2016 [id number] / / [id number] documented as of this encounter Visit Diagnoses Diagnosis Dyslipidemia, goal LDL below 160 Other and unspecified hyperlipidemia documented in this encounter
--- OUTSIDE RECORDS SUMMARY | 2023-12-20 21:04 | External Medical Summary | Summary of Care ---
Demographics Address [address] [place] [address] Home Phone Email Address Preferred Language Belarusian Marital Status Unknown Pentecostalism Affiliation Unknown Race White Ethnic Group Not or Lati no Author Name Unknown Organization [facility] Address [address] [facility] [place] [address] Phone [phone] Care Team Providers Care Chief Business Officer Name Role Phone Unavailable Primary Care Provider Unavailabl e Reason for Visit * Reason Comments Outpatient Testing Encounter Details Date Type Department Care Team (Late st Contact Info) Description 12/19/2023 10:20 AM EDT Laboratory Laboratory [address] [place] [phone] [facility] [address] [place] [address] 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 breast in female, estrogen receptor positive (HCC); Metastasis to bone (HCC); Metastasis to liver (HCC); Peritoneal carcinomatosis (HCC) Allergies No known active allergiesdocumented as of this encounter (statuses as of 12/19/2023) Medications Medication Sig Dispensed Refills Start Date [...] 09/18/2023 Active Pravastatin Sodium 80 MG Oral TabletIndications:Dysl ipidemia, goal LDL below 160 TAKE ONE TABLET BY MOUTH EVERY DAY 90 Tablet 1 12/18/2023 Active documented as of this encounter (statuses as of 12/19/2023) Active Problems Problem Noted Date Diagnosed Date [...] as of this encounter (statuses as of 12/19/2023) Resolved Problems Problem Noted Date Diagnosed Date [...] as of this encounter (statuses as of 12/19/2023) Immunizations Name Administration Dates Next Due COVID-19 mRNA, LNP-s, No Pre serve, 2-Dose Series (GetOutfitted) 01/24/2021,06/29/2020,06/08/2020 COVID-19, LNP-s, No Preserve , Adam-sucrose, Ages 12+ (GetOutfitted) 09/05/2021 COVID-19, MRNA-LNP, 23-24, P F, 30 MCG/0.3 mL, 12 YRS AND ABOVE, IM (Zinwave-Comirnat) 01/16/2023 Covid-19, Mrna, Lnp-s, Pf, B ivalent, 30 Mcg, IM, 12 yrs and above (GetOutfitted) 01/09/2022 Pneumococcal Conjugate Vacc, 13 Valent (Prevnar) 02/16/2015 Pneumococcal Polysaccharide PPV23 (Pneumovax) 01/27/2013,06/22/2010(Deferred: Patient Refused) RSV Vac., Recomb, Adjuvant, PF,0.5 Ml (Arexvy) 01/11/2023 Season Influenza, Quad, PF, Adjuvanted, 65+ Yrs, IM (FLUAD) 12/26/2022,12/29/2019 Seasonal Influenza Virus Vac cine, Unspecified Formulation 12/26/2021,01/12/2021 Seasonal Influenza, High Dos e, Trivalent, PF, IM (Fluzone HD) 01/05/2019,12/25/2017,01/12/2016 Seasonal Influenza, MDCK, Tr ivalent, PF, (Flucelvax) 12/25/2017 Seasonal Influenza, Trivalen t, (IIV3), with Preserv, (Fluzone) 01/06/2017,01/14/2015,01/18/2014,01/27,12/30/2011,01/31/2011,02/03/2010 ,02/21/2008 TDAP (age 10 and older)(Boostrix) 08/04/2016 Varicella [...] on file documented as of this encounter Plan of Treatment Upcoming Encounters Date Type Department Care Team (Late st Contact Info) Description 01/07/2024 2:45 PM EDT Office Visit Hematology/Oncology [facility] [address] [place] [phone] Morales Rodriguez MD [address] [place] [address] [place] [address] 01/13/2024 10:20 AM EDT Laboratory Laboratory [address] [place] [phone] [address] [place] [address] 01/14/2024 1:30 PM EDT Hem/Onc Treatment Hematology/Oncology Treatment, [address] [place] [phone] Leatha, Chair 5 Hem On[address] [place] [address] 03/16/2024 1:00 PM EST Office Visit Family Medicine [address] [place] [phone] Mahogany Valentin MD [address] [place] [address] [place] [address] 03/20/2024 1:30 PM EST Imaging Radiology [address] [place] [address] 04/13/2024 1:00 PM EST Nurse Only Ancillary [address] [place] [address] [place], Nurse Annual [address] [place] [address] Pending Results Name Type Priority Associated Diagnoses Date /Time COMPREHENSIVE METABOLIC PANEL Lab STAT 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 breast in female, estrogen receptor positive (HCC) Metastasis to bone (HCC) Metastasis to liver (HCC) Peritoneal carcinomatosis (HCC) 12/19/2023 11:47 AM EDT CBC WITH WBC DIFFERENTIAL Lab STAT 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 breast in female, estrogen receptor positive (HCC) Metastasis to bone (HCC) Metastasis to liver (HCC) Peritoneal carcinomatosis (HCC) 12/19/2023 11:47 AM EDT PHOSPHORUS Lab STAT 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 breast in female, estrogen receptor positive (HCC) Metastasis to bone (HCC) Metastasis to liver (HCC) Peritoneal carcinomatosis (HCC) 12/19/2023 11:47 AM EDT CBC Lab STAT 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 breast in female, estrogen receptor positive (HCC) Metastasis to bone (HCC) Metastasis to liver (HCC) Peritoneal carcinomatosis (HCC) 12/19/2023 11:47 AM EDT DIFFERENTIAL, AUTOMATED Lab STAT 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 breast in female, estrogen receptor positive (HCC) Metastasis to bone (HCC) Metastasis to liver (HCC) Peritoneal carcinomatosis (HCC) 12/19/2023 11:47 AM EDT Health Maintenance Due Date Last Done Comments [...] this encounter Medical Devices Implanted Type Area Electronics Engineering Manager Device Identifier Shelf Expiration Date Model / Serial / Lot Port Power Mri W/8fr Cath - [id number] Implanted:Qty : 1 on 05/25/2015 by Florence Mayfield MD at [facility] Left: Subclavian CR BARD : PERIPHERAL VASCULAR 08/17/2016 [id number] / / [id number] documented as of this encounter Visit Diagnoses Diagnosis 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 breast in female, estrogen receptor positive (HCC) Metastasis to bone (HCC) Secondary malignant neoplasm of bone and bone marrow Metastasis to liver (HCC) Secondary malignant neoplasm of liver Peritoneal carcinomatosis (HCC) Malignant neoplasm of peritoneum, unspecified documented in this encounter
--- OUTSIDE RECORDS SUMMARY | 2023-12-20 21:04 | External Medical Summary | Summary of Care ---
Demographics Address [address] [place] [address] Home Phone Email Address Preferred Language Dutch Marital Status Unknown Uatsdin Affiliation Unknown Race White Ethnic Group Not or Lati no Author Name Unknown Organization [facility] [address] [facility] [address] Phone [phone] Care Team Providers Care Loin Trimmer Name Role Phone Unavailable Primary Care Provider Unavailabl e Reason for Visit * Reason Comments IV Therapy Zometa/hydration * Episode Based Medications (Routine) - Authorized Specialty Diagnoses / Procedures Referred By Contac t Referred To Contact Diagnoses 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 breast in female, estrogen receptor positive (HCC) Metastasis to bone (HCC) Metastasis to liver (HCC) Peritoneal carcinomatosis (HCC) Procedures CO INJECTION, FULVESTRANT Morales Rodriguez MD [address] [place] [address] [place] [address] Anc Hem/Onc [address] [phone] Referral ID Status Reason Start Date Expiration Date V isits Requested Visits Authorized [id number] Authorized 09/13/2023 04/21/2099 [id number] Encounter Details Date Type Department Care Team (Latest Contact Info) Description 12/17/2023 1:15 PM EDT Hem/Onc Treatment Hematology/Oncolog y Treatment, [address] [phone] Leatha, Chair 7 Hem On[address] [place] [address] 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 breast in female, estrogen receptor positive (HCC)*; Metastasis to bone (HCC); Metastasis to liver (HCC); Peritoneal carcinomatosis (HCC); Hypercalcemia; Malignant neoplasm of central portion of left breast in female, estrogen receptor positive (HCC) Allergies No known active allergiesdocumented as [...] mRNA, LNP-s, No Pre serve, 2-Dose Series ([employer]) 01/24/2021,06/29/2020,06/08/2020 COVID-19, LNP-s, No Preserve , Adam-sucrose, Ages 12+ (Pfizer) 09/05/2021 COVID-19, MRNA-LNP, 23-24, P F, 30 MCG/0.3 mL, 12 YRS AND ABOVE, IM ([facility]) 01/16/2023 Covid-19, Mrna, Lnp-s, Pf, B ivalent, [...] 0 05/24/1985 - 05/24/2015 Smokeless Tobacco: Never Tobacco Cessation:Counseling Given: Not Answered Comments:5-6 cig/day, Cut down from 1 pack a day. Alcohol Use [...] No 04/11/2023 Does the household have a [facility] source of income? (Household - for ages [...] on file documented as of this encounter Last Filed Vital Signs Vital Sign Reading Time Taken Comments Blood Pressure 109/70 12/17/2023 12:00 PM EDT Pulse 104 12/17/2023 12:00 PM EDT Temperature 36.8 C (98.2 F) 12/17/2023 12:00 PM E DT Respiratory Rate 16 12/17/2023 12:00 PM EDT Oxygen Saturation 91% 12/17/2023 12:00 PM EDT Inhaled Oxygen Concentration - - Weight 63.5 kg (140 lb) 12/17/2023 12:00 PM EDT Height 157.5 cm (5' 2") 12/17/2023 12:00 PM EDT Body Mass Index 25.61 12/17/2023 12:00 PM EDT documented in this encounter Nursing Notes * Shima Núñez LPN - 12/17/2023 3:46 PM EDT Faslodex 500mcg administered IM into the left and right dorsogluteal muscle (250mcg in the left [id number] in the right). Patient tolerated injection. * Shima Núñez LPN - 12/17/2023 2:18 PM EDT Patient arrived Chair 2 for IV therapy Zometa/Hydration and Faslodex injection. Vital signs are stable. IV access successful at the right metacarpal vein. IV line flushed with ease; positive blood return; IV fluids connected and infusing. Call rosario within reach. Patient instructed on use of heat and massage functions where applicable. Patient shown how to operate the heat function of the chair and to alert nursing staff if the chair feels too warm. Patient instructed on the risk of potential azevedo while using the heat function. 15:40 - Patient completed Zometa and 2hour hydration. Patient will have labs drawn on 12/18. Patientwill return in 1 month. Patient discharged in stable condition. documented in this encounter Plan of Treatment Upcoming Encounters Date Type Department Care Team (Late st Contact Info) Description 12/19/2023 10:20 AM EDT Laboratory Laboratory [facility] [address] [place] [phone] [place] [address] 01/07/2024 2:45 PM EDT Office Visit Hematology/Oncology [facility] [place] [address] [place] [phone] Morales Rodriguez MD [address] [facility] [place] [address] 01/13/2024 10:20 AM EDT Laboratory Laboratory [address] [place] [phone] [facility] [address] [place] [address] 01/14/2024 1:30 PM EDT Hem/Onc Treatment Hematology/Oncology Treatment, [address] [place] [phone] Leatha, Chair 5 Hem Onc [address] [place] [address] 03/16/2024 1:00 PM EST Office Visit Family Medicine [address] [place] [phone] Mahogany Valentin MD [address] [place] [address] [place] [address] 03/20/2024 1:30 PM EST Imaging Radiology [address] [place] [address] 04/13/2024 1:00 PM EST Nurse Only Ancillary [address] [place] [address] [place], Nurse Annual [address] [place] [address] Health Maintenance Due Date Last Done Comments [...] this encounter Medical Devices Implanted Type Area Cable Mechanic Device Identifier Shelf Expiration Date Model / Serial / Lot Port Power Mri W/8fr Cath - [id number] Implanted:Qty : 1 on 05/25/2015 by Florence Mayfield MD at [facility] Left: Subclavian CR BARD : PERIPHERAL VASCULAR 08/17/2016 [id number] / / [id number] documented as of this encounter Visit Diagnoses Diagnosis 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 breast in female, estrogen receptor positive (HCC)- Primary Metastasis to bone (HCC) Secondary malignant neoplasm of bone and bone marrow Metastasis to liver (HCC) Secondary malignant neoplasm of liver Peritoneal carcinomatosis (HCC) Malignant neoplasm of peritoneum, unspecified Hypercalcemia Malignant neoplasm of central portion of left breast in female, estrogen receptor positive (HCC) documented in this encounter Administered Medications Active Administered Medications - up to 3 most recent administrations Medication Order MAR Action Action Date Dose Rate Site diphenhydrAMINE (Benadryl) inj 50 mg 50 mg, IV Push, ONCE PRN Other, Hypersensitivity Reaction, Starting on Sat12/17/23 at 1252, Until Sat12/18/23 at 1251, For 24 hours EPINEPHrine 1 MG/ML inj 0.3 mg 0.3 mg, Intramuscular, ONCE PRN Other, Hypersensitivity Reaction or Anaphylaxis, Starting on Sat12/17/23 at 1252, Until Sat12/18/23 at 1251, For 24 hours hEParin 100 UNIT/ML Lock Flush inj 500 Units 500 Units (5 mL), IV Lock, PRN Other, IV Flush, Starting on Sat12/17/23 at 1252, Until Sat12/18/23 at 1251, For 24 hours, Do not flush if lock, PICC, or central line not in place; IV infusing or unable to flush. hEParin 100 UNIT/ML Lock Flush inj 500 Units 500 Units (5 mL), IV Lock, PRN Other, IV Flush, Starting on Sat12/17/23 at 1258, Until Sat12/18/23 at 1257, For 24 hours, Do not flush if lock, PICC, or central line not in place; IV infusing or unable to flush. Hydrocortisone Sod Suc (PF) (Solu-Cortef) inj 100 mg 100 mg, IV Push, ONCE PRN Other, Hypersensitivity Reaction, Starting on Sat12/17/23 at 1252, Until Sat12/18/23 at 1251, For 24 hours NSS infusion 500 mL, Intravenous, at 50 mL/hr, CONTINUOUS, Starting on Sat12/17/23 at 1400, Until Sat12/17/23 at 2359 Start Infusion 12/17/2023 1:29 PM EDT 500 mL 50 mL/hr oxygen GAS Inhalation, OXYGEN, First dose on Sat12/17/23 at 1600, Until Discontinued, Device/Managed by: Low Flow Device, Goal SPO2 (%): 91-95, Starting Device: Nasal Cannula, Initial Flow Rate (LPM): 2, Lowest Support: Nasal Cannula: Flow 0-6 LPM. Titrate up/down by 1 LPM., Higher Support: Non-Rebreather (NRB) Mask: Minimum of 10 LPM. Titrate to maintain bag inflation., Titration Interval: Q2 minutes and as needed., Notify Provider: For sudden DECREASE in resting SPO2 to less than 85% and when escalating delivery device., Wean patient off Oxygen when the oxygen saturation is greater than or equal to 93% sodium chloride 0.9 % flush central line 10 mL 10 mL, IV Push, PRN Other, IV Flush, Starting on Sat12/17/23 at 1252, Until Sat12/18/23 at 1251, For 24 hours, Do not flush if lock, PICC, or central line not in place; IV infusing or unable to flush. sodium chloride 0.9 % flush central line 10 mL 10 mL, IV Push, PRN Other, IV Flush, Starting on Sat12/17/23 at 1258, Until Sat12/18/23 at 1257, For 24 hours, Do not flush if lock, PICC, or central line not in place; IV infusing or unable to flush. Inactive Administered Medications - up to 3 most recent administrations Medication Order MAR Action Action Date Dose Rate Site Fulvestrant (Faslodex) inj 500 mg 500 mg, Intramuscular, ONCE, On Sat12/17/23 at 1400, For 1 dose Given 12/17/2023 12:59 PM EDT 500 mg Dorsogluteal Left NSS infusion FOR HYDRATION Intravenous, at 500 mL/hr Administer over 2 Hours, ONCE, 1 dose, On Sat12/17/23 at 1400 Start Infusion 12/17/2023 1:32 PM EDT 1,000 mL 500 mL/hr Zoledronic Acid (Zometa) 3 mg in NSS 100 mL ivpb 3 mg, IV Piggyback, ONCE, 1 dose, On Sat12/17/23 at 1400 Start Infusion 12/17/2023 1:40 PM EDT 3 mg 435 mL/hr documented in this encounter
--- OUTSIDE RECORDS SUMMARY | 2023-12-20 21:04 | External Medical Summary ---
Demographics Address [address] [facility] [address] [place] [address] Phone Unavailable Preferred Language Unknown Marital Status Unknown Yazidism Affiliation Unknown Race Unknown Ethnic Group Unknown Author Name Unknown Address Unknown Organization K[facility] [address] [place] [address] Laboratory Report Ordering Provider Test Date Status MONIKA MARTINEZ 12/19/2023 11:47:22 Final Observation Date Value Abnormality Reference (Units ) Status Phosphate 12/19/2023 11:47:22 2.6 2.5-4.8 (m g/dL) Final Performing Location [facility] [address] [place] [address]
--- OUTSIDE RECORDS SUMMARY | 2023-12-20 21:04 | External Medical Summary ---
Demographics Address [address] [place] [address] Phone Unavailable Preferred Language Unknown Marital Status Unknown Methodist Affiliation Unknown Race Unknown Ethnic Group Unknown Author Name Unknown Address Unknown Organization K01[place] [place] [address] [place] [id number] Laboratory Report Ordering Provider Test Date Status MONIKA MARTINEZ 12/19/2023 11:47:22 Final Observation Date Value Abnormality Reference (Units ) Status BUN 12/19/2023 11:47:22 19 6-20 (mg/dL) Final Creatinine 12/19/2023 11:47:22 1.5 Above high normal 0.5-1.0 (mg/dL) Final Glomerular filtration rate/1.73 sq M.predicted [Volume Rate/Area] in Serum, Plasma or Blood by Creatinine-based formula (CKD-EPI) 12/19/2023 11:47:22 36 Below low normal >=60 (mL/min) Final eGFR is calculated based on the CKD-EPI 2020 equation. Sodium 12/19/2023 11:47:22 139 135-146 (m mol/L) Final Potassium 12/19/2023 11:47:22 3.9 3.5-5.1 (m mol/L) Final Cl 12/19/2023 11:47:22 105 98-107 (mm ol/L) Final CO2 12/19/2023 11:47:22 18 Below low normal 22- 32 (mmol/L) Final Anion gap 12/19/2023 11:47:22 16 Above high normal 7- 15 (mmol/L) Final Glucose 12/19/2023 11:47:22 127 Above high normal 70 -120 (mg/dL) Final Albumin 12/19/2023 11:47:22 3.6 Below low normal 3.8 -5.0 (g/dL) Final AST (Aspartate aminotransferase) 12/19/2023 11:47:22 75 Above high normal 10-35 (U/L) Final Alk Phos 12/19/2023 11:47:22 179 Above high normal 35 -130 (U/L) Final Bilirubin, Total 12/19/2023 11:47:22 0.3 <=1 .2 (mg/dL) Final Calcium 12/19/2023 11:47:22 9.8 8.4-10.2 ( mg/dL) Final Protein 12/19/2023 11:47:22 6.1 6.0-8.3 (g /dL) Final ALT (Alanine aminotransferase) 12/19/2023 11:47:22 26 10-35 (U/L) Tony collins Performing Location [facility] [place] [facility] [address] [facility] [address]
--- OUTSIDE RECORDS SUMMARY | 2023-12-20 21:04 | External Medical Summary | Summary of Care ---
Demographics Address [address] [place] [address] Home Phone Email Address .EQ works t Preferred Language British Marital Status Unknown Sikhism Affiliation Unknown Race White Ethnic Group Not or Lati no Author Name Unknown Organization [facility] Address [address] [facility] [place] [address] Phone [phone] Care Team Providers Care Financial Operations Clerk Name Role Phone Unavailable Primary Care Provider Unavailabl e Reason for Visit * Reason Comments Outpatient Testing Encounter Details Date Type Department Care Team (Late st Contact Info) Description 12/19/2023 10:20 AM EDT Laboratory Laboratory [address] [place] [phone] [facility] Lab [address] [place] [address] 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 [...] mRNA, LNP-s, No Pre serve, 2-Dose Series ([employer]) 01/24/2021,06/29/2020,06/08/2020 COVID-19, LNP-s, No Preserve , Adam-sucrose, Ages 12+ ([employer]) 09/05/2021 COVID-19, MRNA-LNP, 23-24, P F, 30 MCG/0.3 mL, 12 YRS AND ABOVE, IM (LoveIt-Comirnat) 01/16/2023 Covid-19, Mrna, Lnp-s, Pf, B ivalent, 30 Mcg, IM, 12 yrs and above ([employer]) 01/09/2022 Pneumococcal Conjugate Vacc, 13 Valent (Prevnar) [...] 01/07/2024 2:45 PM EDT Office Visit Hematology/Oncology [facility] [address] [place] [phone] Morales Rodriguez MD [address] [place] [address] [place] [address] 01/13/2024 10:20 AM EDT Laboratory Laboratory [address] [place] [phone] [address] [place] [address] 01/14/2024 1:30 PM EDT Hem/Onc Treatment Hematology/Oncology Treatment, [address] [place] [phone] Leatha, Chair 5 Hem Onc [address] [place] [address] 03/16/2024 1:00 PM EST Office Visit Family Medicine [address] [place] [phone] Mahogany Valentin MD [address] [place] [address] [place] [address] 03/20/2024 1:30 PM EST Imaging Radiology [address] [place] [address] 04/13/2024 1:00 PM EST Nurse Only Ancillary [address] [place] [address] [place], Nurse Annual [address] [place] [address] Pending Results Name Type Priority Associated Diagnoses [...] this encounter Medical Devices Implanted Type Area Underwriting Consultant Device Identifier Shelf Expiration Date Model / Serial / Lot Port Power Mri W/8fr Cath - [id number] Implanted:Qty : 1 on 05/25/2015 by Florence Mayfield MD at OR [facility] Left: Subclavian CR BARD : PERIPHERAL VASCULAR 08/17/2016 [id number] / / [id number] documented as of this encounter Visit Diagnoses Diagnosis 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 breast in female, estrogen receptor positive (HCC) Metastasis to bone (HCC) Secondary malignant neoplasm of bone and bone marrow Metastasis to liver (HCC) Secondary malignant neoplasm of liver Peritoneal carcinomatosis (HCC) Malignant neoplasm of peritoneum, unspecified documented in this encounter
--- OUTSIDE RECORDS SUMMARY | 2023-12-20 21:04 | External Medical Summary ---
Demographics Address [address] [place] [address] Phone Unavailable Preferred Language Unknown Marital Status Unknown Caodaism Affiliation Unknown Race Unknown Ethnic Group Unknown Author Name Unknown Address Unknown Organization K01:[facility] [place] [address] [place] [address] Laboratory Report Ordering Provider Test Date Status MOINKA MARTINEZ 12/19/2023 11:47:22 Final Observation Date Value Abnormality Reference (Units ) Status WBC, Total 12/19/2023 11:47:22 9.85 4.00-10.80 (K/uL) Final RBC 12/19/2023 11:47:22 3.80 3.85-5.15 (M/uL) Final Hemoglobin 12/19/2023 11:47:22 11.5 Below low normal 12.0-15.3 (g/dL) Final HCT 12/19/2023 11:47:22 35.3 Below low normal 36.0-45.2 (%) Final MCV 12/19/2023 11:47:22 92.9 81.5-97.5 (fL) Final MCH 12/19/2023 11:47:22 30.3 27.0-34.0 (pg) Final MCHC 12/19/2023 11:47:22 32.6 32.0-36.0 (g/dL) Final RDW 12/19/2023 11:47:22 16.5 11.5-15.5 (%) Final Platelets 12/19/2023 11:47:22 268 140-400 (K/uL) Final MPV 12/19/2023 11:47:22 10.8 6.6-11.1 (fL) Final Nucleated erythrocytes/100 leukocytes [Ratio] in Blood by Automated count 12/19/2023 11:47:22 0 <=0 (/100 WBCs) Final Performing Location [facility] [place] [address] [place] [address]
--- OUTSIDE RECORDS SUMMARY | 2023-12-20 21:04 | External Medical Summary | Summary of Care ---
Demographics Address [address] [place] [address] Home Phone Email Address Preferred Language Nicaraguan Marital Status Unknown Tenriism Affiliation Unknown Race White Ethnic Group Not or Lati no Author Name Unknown Organization [facility] Address [address] [facility] [address] Phone [phone] Care Team Providers Care Siderographer Name Role Phone Unavailable Primary Care Provider Unavailabl e Reason for Visit * Reason Onset Date Comments Test Results 12/20/2023 Encounter Details Date Type Department Care Team (Late st Contact Info) Description 12/20/2023 Telephone Hematology/Oncology [facility] [place] [address] [place] [phone] Morales [facility] [address] [facility] [address] Test Results Allergies No known active allergiesdocumented as of this encounter (statuses as of 12/20/2023) Medications Medication Sig Dispensed Refills Start Date [...] as of this encounter (statuses as of 12/20/2023) Active Problems Problem Noted Date Diagnosed Date [...] as of this encounter (statuses as of 12/20/2023) Resolved Problems Problem Noted Date Diagnosed Date [...] 12/25/2011 Overview: Per Lipid Taxonomy. Mixed dyslipidemia 01/07/200315/ 9 Overview: Per Lipid Taxonomy. Anxiety 01/07/2003 08/23/2022 Other (abnormal) findings on radiological examination of breast 01/07/2003 06/03/2015 HISTORY OF TOBACCO USE 01/07/200302/16 Menopause 01/07/2003 02/16/2015 Osteoporosis 01/07/2003 02/16/2015 Tobacco use disorder 017 documented as of this encounter (statuses as of 12/20/2023) Immunizations Name Administration Dates Next Due COVID-19 mRNA, LNP-s, No Pre serve, 2-Dose Series ([employer]) 01/24/2021,06/29/2020,06/08/2020 COVID-19, LNP-s, No Preserve , Adam-sucrose, Ages 12+ ([employer]) 09/05/2021 COVID-19, MRNA-LNP, 23-24, P F, 30 MCG/0.3 mL, 12 YRS AND ABOVE, IM (PFIZER-Comirnaty) 01/16/2023 Covid-19, Mrna, Lnp-s, Pf, B ivalent, 30 Mcg, IM, 12 yrs and above ([employer]) 01/09/2022 Pneumococcal Conjugate Vacc, 13 Valent (Prevnar) [...] Telephone Encounter - Nilsa Baker LPN - 12/20/2023 11:52 AM EDT My G sent. * Telephone Encounter - Nilsa Baker LPN - 12/20/2023 11:45 AM EDT ----- Message from Morales Rodriguez MD sent at 12/20/2023 11:15 AM EDT ----- Blood workup done on 12/19/2023: -BUN/Creat: 19/1.5, Calcium level dropped down to around 9.8. Calcium was 11.8 on 12/16/2023, she received Zometa x1 dose, now Calcium is in the normal range. I am seeing her on 01/07/2024. documented in this encounter Plan of Treatment Upcoming Encounters Date Type Department Care Team (Late st Contact Info) Description 01/07/2024 2:45 PM EDT Office Visit Hematology/Oncology [facility] [address] [place] [phone] Morales Rodriguez MD [address] [place] [address] 01/13/2024 10:20 AM EDT Laboratory Laboratory [address] [place] [phone] [place], Lab [address] [place] [address] 01/14/2024 1:30 PM EDT Hem/Onc Treatment Hematology/Oncology Treatment, [place] [address] [place] [phone] Leatha, Chair 5 Hem Onc [address] [place] [address] 03/16/2024 1:00 PM EST Office Visit Family Medicine [address] [place] [phone] Mahogany Valentin MD [address] [place] [address] [place] [address] 03/20/2024 1:30 PM EST Imaging Radiology [address] [place] [address] 04/13/2024 1:00 PM EST Nurse Only Ancillary [address] [place] [address] [place], Nurse Annual [address] [place] [address] Health Maintenance Due Date Last Done Comments [...] this encounter Medical Devices Implanted Type Area Shank Burnisher Device Identifier Shelf Expiration Date Model / Serial / Lot Port Power Mri W/8fr Cath - [id number] Implanted:Qty : 1 on 05/25/2015 by Florence Mayfield MD at OR [facility] Left: Subclavian CR BARD : PERIPHERAL VASCULAR 08/17/2016 [id number] / / [id number] documented as of this encounter
--- OUTSIDE RECORDS SUMMARY | 2023-12-20 21:05 | External Medical Summary | Summary of Care ---
Demographics Address [address] [place] [address] Home Phone Email Address Preferred Language Malay Marital Status Unknown Moravian Affiliation Unknown Race White Ethnic Group Not or Lati no Author Name Unknown Organization [facility] Address [address] [facility] [place] [address] Phone [phone] Care Team Providers Care Bonding Machine Operator Name Role Phone Jasmyne Ross PA-C Primary Care Provider [phone] Reason for Visit * Reason Comments Outpatient Testing Encounter Details Date Type Department Care Team (Late st Contact Info) Description 11/18/2023 10:20 AM EDT Laboratory Laboratory [address] [place] [phone] [place] [address] Metastasis to bone (HCC) Allergies No known active allergiesdocumented as of this encounter (statuses as of 11/18/2023) Medications Medication Sig Dispensed Refills Start Date [...] as of this encounter (statuses as of 11/18/2023) Active Problems Problem Noted Date Diagnosed Date Metastasis to bone 09/13/2023 Metastasis to liver [...] as of this encounter (statuses as of 11/18/2023) Resolved Problems Problem Noted Date Diagnosed Date [...] as of this encounter (statuses as of 11/18/2023) Immunizations Name Administration Dates Next Due COVID-19 mRNA, LNP-s, No Pre serve, 2-Dose Series (Narrative) 01/24/2021,06/29/2020,06/08/2020 COVID-19, LNP-s, No Preserve , Adam-sucrose, Ages 12+ (Narrative) 09/05/2021 COVID-19, MRNA-LNP, 23-24, P F, 30 MCG/0.3 mL, 12 YRS AND ABOVE, IM (PFIZER-Comirnaty) 01/16/2023 Covid-19, Mrna, Lnp-s, Pf, B ivalent, 30 Mcg, IM, 12 yrs and above (Narrative) 01/09/2022 Pneumococcal Conjugate Vacc, 13 Valent (Prevnar) [...] Care Team (Late st Contact Info) Description 11/19/2023 1:15 PM EDT Hem/Onc Treatment Hematology/Oncology Treatment, [address] [place] [phone] Leatha, Chair 1 Hem Onc [address] [place] [address] 01/07/2024 2:45 PM EDT Office Visit Hematology/Oncology [facility] [address] [place] [phone] Morales Rodriguez MD [address] [place] [address] [place] [address] 03/16/2024 1:00 PM EST Office Visit Family Medicine [address] [place] [phone] Mahogany Valentin MD [address] [place] [address] [place] [address] 03/20/2024 1:30 PM EST Imaging Radiology [address] [place] [address] 04/13/2024 1:00 PM EST Nurse Only Ancillary [address] [place] [address] [place], Nurse Annual [address] [place] [address] Pending Results Name Type Priority Associated Diagnoses Date /Time PHOSPHORUS Lab STAT Metastasis to bone (HCC) 11/18/2023 10:19 AM EDT Health Maintenance Due Date Last Done Comments DXA Scan 01/17/2023 01/18/2020, 05/04/2016 COVID-19 Vaccine ( season) 2023 01/16/2023, 01/09/2022, 09/05/2021, Additional history exists Influenza Vaccine (FLU shot) (#1) 2023 12/26/2022, 12/26/2022, 12/26/2021, Additional history exists Depression Screening 04/11/2024 04/11/2023 DTaP,Tdap,and Td Vaccines (2 - Td or Tdap) 08/04/2026 [...] this encounter Medical Devices Implanted Type Area Security Incident Handler Device Identifier Shelf Expiration Date Model / Serial / Lot Port Power Mri W/8fr Cath - [id number] Implanted:Qty : 1 on 05/25/2015 by Florence Mayfield MD at OR [facility] Left: Subclavian CR BARD : PERIPHERAL VASCULAR 08/17/2016 [id number] / / [id number] documented as of this encounter Visit Diagnoses Diagnosis Metastasis to bone (HCC) Secondary malignant neoplasm of bone and bone marrow documented in this encounter Care Teams Bonding Machine Operator Relationship Specialty Start Date End Date Jasmyne Ross PA-C [address] [place] [address] [place] [address] PCP - General Physician Insurance Law Specialist 11/04/23 documented as of this encounter
--- OUTSIDE RECORDS SUMMARY | 2023-12-20 21:05 | External Medical Summary | Summary of Care ---
Demographics Address [address] [place] [address] Home Phone Email Address Preferred Language Kyrgyz Marital Status Unknown Gnosticist Affiliation Unknown Race White Ethnic Group Not or Lati no Author Name Unknown Organization [facility] Address [address] [facility] [place] [address] Phone [phone] Care Team Providers Care Strategic Development Manager Name Role Phone Unavailable Primary Care Provider Unavailabl e Reason for Visit * Reason Comments Outpatient Testing Encounter Details Date Type Department Care Team (Late st Contact Info) Description 12/16/2023 10:20 AM EDT Laboratory Laboratory [address] [place] [phone] [facility] Lab [address] [place] [address] Metastasis to bone (HCC); 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 breast in female, estrogen receptor positive (HCC); Metastasis to liver (HCC); Peritoneal carcinomatosis (HCC) Allergies No known active allergiesdocumented as of this encounter (statuses as of 12/16/2023) Medications Medication Sig Dispensed Refills Start Date [...] as of this encounter (statuses as of 12/16/2023) Active Problems Problem Noted Date Diagnosed Date [...] as of this encounter (statuses as of 12/16/2023) Resolved Problems Problem Noted Date Diagnosed Date [...] Pathologic:Stage IIB(T2, N1a, cM0) - Signed by Mroales Rodriguez MD on 01/11/2016 Dyslipidemia, goal to be determined 04/05/2009 12/25/2011 Overview: Per Lipid Taxonomy. Mixed dyslipidemia 01/07/2003 9 Overview: Per Lipid Taxonomy. Anxiety 01/07/2003 08/23/2022 Other (abnormal) findings on radiological examination of breast 01/07/2003 06/03/2015 HISTORY OF TOBACCO USE 01/07/200302/16 Menopause 01/07/2003 02/16/2015 Osteoporosis 01/07/2003 02/16/2015 Tobacco use disorder 017 documented as of this encounter (statuses as of 12/16/2023) Immunizations Name Administration Dates Next Due COVID-19 mRNA, LNP-s, No Pre serve, 2-Dose Series ([employer]) 01/24/2021,06/29/2020,06/08/2020 COVID-19, LNP-s, No Preserve , Adam-sucrose, Ages 12+ ([employer]) 09/05/2021 COVID-19, MRNA-LNP, 23-24, P F, 30 MCG/0.3 mL, 12 YRS AND ABOVE, IM (PFIZER-Comirnaty) 01/16/2023 Covid-19, Mrna, Lnp-s, Pf, B ivalent, 30 Mcg, IM, 12 yrs and above ([employer]) 01/09/2022 Pneumococcal Conjugate Vacc, 13 Valent (Prevnar) [...] 1:15 PM EDT Hem/Onc Treatment Hematology/Oncology Treatment, [address] [place] [phone] Leatha, Chair 7 Hem Onc [address] [place] [address] 01/07/2024 2:45 PM EDT Office Visit Hematology/Oncology [address] [phone] Morales Rodriguez MD [address] [place] [address] [place] [address] 03/16/2024 1:00 PM EST Office Visit Family Medicine [address] [place] [phone] Mahogany Valentin MD [address] [place] [address] [place] [address] 03/20/2024 1:30 PM EST Imaging Radiology [address] [place] [address] 04/13/2024 1:00 PM EST Nurse Only Ancillary [address] [place] [address] [place], Nurse [address] [place] [address] Pending Results Name Type Priority Associated Diagnoses Date /Time PHOSPHORUS Lab STAT Metastasis to bone (HCC) 12/16/2023 11:19 AM EDT COMPREHENSIVE METABOLIC PANEL Lab STAT 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 breast in female, estrogen receptor positive (HCC) Metastasis to bone (HCC) Metastasis to liver (HCC) Peritoneal carcinomatosis (HCC) 12/16/2023 11:19 AM EDT CBC WITH WBC DIFFERENTIAL Lab STAT 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 breast in female, estrogen receptor positive (HCC) Metastasis to bone (HCC) Metastasis to liver (HCC) Peritoneal carcinomatosis (HCC) 12/16/2023 11:19 AM EDT CBC Lab STAT 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 breast in female, estrogen receptor positive (HCC) Metastasis to bone (HCC) Metastasis to liver (HCC) Peritoneal carcinomatosis (HCC) 12/16/2023 11:19 AM EDT DIFFERENTIAL, AUTOMATED Lab STAT 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 breast in female, estrogen receptor positive (HCC) Metastasis to bone (HCC) Metastasis to liver (HCC) Peritoneal carcinomatosis (HCC) 12/16/2023 11:19 AM EDT Health Maintenance Due Date Last [...] this encounter Medical Devices Implanted Type Area Nursing Staff Development Coordinator Device Identifier Shelf Expiration Date Model / Serial / Lot Port Power Mri W/8fr Cath - [id number] Implanted:Qty : 1 on 05/25/2015 by Florence Mayfield MD at OR [facility] Left: Subclavian CR BARD : PERIPHERAL VASCULAR 08/17/2016 [id number] / / [id number] documented as of this encounter Visit Diagnoses Diagnosis Metastasis to bone (HCC) 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
--- OUTSIDE RECORDS SUMMARY | 2023-12-20 21:05 | External Medical Summary ---
Author Name Unknown Address Unknown Organization K01:[facility] [place] - [address] [place] [address] Laboratory Report Ordering Provider Test Date Status MONIKA MARTINEZ 12/16/2023 11:19:54 Final Observation Date Value Abnormality Reference (Units ) Status WBC, Total 12/16/2023 11:19:54 8.45 4.00-10.80 (K/uL) Final RBC 12/16/2023 11:19:54 3.94 3.85-5.15 (M/uL) Final Hemoglobin 12/16/2023 11:19:54 11.8 Below low normal 12.0-15.3 (g/dL) Final HCT 12/16/2023 11:19:54 36.7 36.0-45.2 (%) Final MCV 12/16/2023 11:19:54 93.1 81.5-97.5 (fL) Final MCH 12/16/2023 11:19:54 29.9 27.0-34.0 (pg) Final MCHC 12/16/2023 11:19:54 32.2 32.0-36.0 (g/dL) Final RDW 12/16/2023 11:19:54 16.0 11.5-15.5 (%) Final Platelets 12/16/2023 11:19:54 274 140-400 (K/uL) Final MPV 12/16/2023 11:19:54 10.8 6.6-11.1 (fL) Final Nucleated erythrocytes/100 leukocytes [Ratio] in Blood by Automated count 12/16/2023 11:19:54 0 <=0 (/100 WBCs) Final Performing Location [facility] [place] - [address] [place] [address]
--- OUTSIDE RECORDS SUMMARY | 2023-12-20 21:05 | External Medical Summary | Summary of Care ---
Demographics Address [address] [place] [address] Home Phone Email Address Preferred Language Slovenian Marital Status Unknown Scientologist Affiliation Unknown Race White Ethnic Group Not or Lati no Author Name Unknown Organization [facility] Address [address] [place] [facility] [place] [address] Phone [phone] Care Team Providers Care Lgsw Name Role Phone Jasmyne Ross PA-C Primary Care Provider [phone] Reason for Visit * Reason Comments Nurse Documentation Hold Zometa Medication Administration Faslodex * Episode Based Medications (Routine) - Authorized Specialty Diagnoses / Procedures Referred By Truman acevedo Referred To Contact Diagnoses 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 breast in female, estrogen receptor positive (HCC) Metastasis to bone (HCC) Metastasis to liver (HCC) Peritoneal carcinomatosis (HCC) Procedures MT INJECTION, FULVESTRANT Morales Rodriguez MD [address] [place] [phone] Anc Hem/Onc [address] [address] Referral ID Status Reason Start Date Expiration Date V isits Requested Visits Authorized [id number] Authorized 09/13/2023 04/21/2099 999 999 Encounter Details Date Type Department Care Team (Latest Contact Info) Description 11/19/2023 1:15 PM EDT Hem/Onc Treatment Hematology/Oncolog y Treatment, [address] [phone] Leatha, Chair 1 Hem Onc [address] [place] [address] 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 breast in female, estrogen receptor positive (HCC)*; Metastasis to bone (HCC); Metastasis to liver (HCC); Peritoneal carcinomatosis (HCC); Encounter for antineoplastic chemotherapy Allergies No known active allergiesdocumented as of this encounter (statuses as of 11/19/2023) Medications Medication Sig Dispensed Refills Start Date [...] as of this encounter (statuses as of 11/19/2023) Active Problems Problem Noted Date Diagnosed Date [...] as of this encounter (statuses as of 11/19/2023) Resolved Problems Problem Noted Date Diagnosed Date [...] as of this encounter (statuses as of 11/19/2023) Immunizations Name Administration Dates Next Due COVID-19 mRNA, LNP-s, No Pre serve, 2-Dose Series ([employer]) 01/24/2021,06/29/2020,06/08/2020 COVID-19, LNP-s, No Preserve , Adam-sucrose, Ages 12+ ([employer]) 09/05/2021 COVID-19, MRNA-LNP, 23-24, P F, 30 MCG/0.3 mL, 12 YRS AND ABOVE, IM ([facility]) 01/16/2023 Covid-19, Mrna, Lnp-s, Pf, B [...] 04/11/2023 Does the household have a re lar source of income? (Household - for ages [...] on file documented as of this encounter Nursing Notes * Mirtha Curtis, RN - 11/19/2023 3:18 PM EDT Exam room 4, Faslodex. Pt has no acute concerns to report since previous treatment. Faslodex administered per order; pt tolerated well. Pt discharged in stable condition. * Shima Núñez LPN - 11/19/2023 3:[address] Rodriguez; Hold Zometa 4 weeks. Repeat CBCD, CMP, Phos day prior to next Zometa appointment on 12/16. Has lab appointment scheduled for 12/15 at [facility] lab Patient understood and agreed documented in this encounter Plan of Treatment Upcoming Encounters Date Type Department Care Team (Late st Contact Info) Description 12/16/2023 10:20 AM EDT Laboratory Laboratory [address] [place] [phone] [address]Sil[address]io [address] [place] [address] 12/17/2023 1:15 PM EDT Hem/Onc Treatment Hematology/[address]cology [address], [address] [phone] Leatha, Chair 8 Hem Onc [address] [place] [address] 01/07/2024 2:45 PM EDT Office Visit Hematology/Oncology [address] [place] [phone] Morales Rodriguez MD [address] [place] [address] [place] [address] 03/16/2024 1:00 PM EST Office Visit Family Medicine [address] [place] [phone] Mahogany Valentin MD [address] [place] [address] [place] [address] 03/20/2024 1:30 PM EST Imaging Radiology [address] [place] [address] 04/13/2024 1:00 PM EST Nurse Only Ancillary [address] [place] [address] Heriey, Nurse [address] [place] [address] Scheduled Orders Name Type Priority Associated Diagnoses Orde r Schedule COMPREHENSIVE METABOLIC PANEL Lab STAT 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 breast in female, estrogen receptor positive (HCC) Metastasis to bone (HCC) Metastasis to liver (HCC) Peritoneal carcinomatosis (HCC) 5 Occurrences starting 11/19/2023 until 11/18/2024, 1 completed CBC WITH WBC DIFFERENTIAL Lab STAT 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 breast in female, estrogen receptor positive (HCC) Metastasis to bone (HCC) Metastasis to liver (HCC) Peritoneal carcinomatosis (HCC) 5 Occurrences starting 11/19/2023 until 11/18/2024, 1 completed PHOSPHORUS Lab STAT 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 breast in female, estrogen receptor positive (HCC) Metastasis to bone (HCC) Metastasis to liver (HCC) Peritoneal carcinomatosis (HCC) 5 Occurrences starting 11/19/2023 until 11/18/2024 Health Maintenance Due Date Last Done Comments [...] 01/27/2013 Zoster Vaccines Completed 11/22/2019, 01/22, 02/22/2014 Hepatitis C Screening Completed 10/06/2020, 017 Cologuard Discontinued HPV (Gardasil) Vaccine Aged Out No lo nger eligible based on patient's age to complete this topic Hepatitis B Vaccine Aged Out No longe r eligible based on patient's age to complete this topic MENINGOCOCCAL (MENACTRA/MENVEO) Aged Out No longer eligible based on patient's age to complete this topic Sigmoidoscopy Discontinued documented as of this encounter Medical Devices Implanted Type Area Maintenance Man Device Identifier Shelf Expiration Date Model / Serial / Lot Port Power Mri W/8fr Cath - [id number] Implanted:Qty : 1 on 05/25/2015 by Florence Mayfield MD at [facility] Left: Subclavian CR BARD : PERIPHERAL VASCULAR 08/17/2016 [id number] / / [id number] documented as of this encounter Procedures Procedure Name Priority Date/Time Associated Diagnosis Comments DIFFERENTIAL, AUTOMATED STAT 11/19/2023 2:26 PM EDT 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 breast in female, estrogen receptor positive (HCC) Metastasis to bone (HCC) Metastasis to liver (HCC) Peritoneal carcinomatosis (HCC) COMPREHENSIVE METABOLIC PANEL STAT 11/19/2023 2:26 PM EDT 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 breast in female, estrogen receptor positive (HCC) Metastasis to bone (HCC) Metastasis to liver (HCC) Peritoneal carcinomatosis (HCC) CBC STAT 11/19/2023 2:26 PM EDT 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 breast in female, estrogen receptor positive (HCC) Metastasis to bone (HCC) Metastasis to liver (HCC) Peritoneal carcinomatosis (HCC) CBC STAT 11/19/2023 2:26 PM EDT 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 breast in female, estrogen receptor positive (HCC) Metastasis to bone (HCC) Metastasis to liver (HCC) Peritoneal carcinomatosis (HCC) documented in this encounter Results * (ABNORMAL) DIFFERENTIAL, AUTOMATED (11/19/2023 2:26 PM EDT) WBC 8.89 4.00 - 10.80 K/uL 11/19/2023 2:31 PM EDT [facility] [place] 56-02 Neutrophils % 63.8 40.0 - 75.0 % 11/19/2023 2:31 PM EDT [facility] 56 Lymphocytes % 21.3 18.0 - 42.0 % 11/19/2023 2:31 PM EDT [facility] 56- Monocytes % 13.0(H) 1.0 - 11.0 % 11/19/2023 2:31 PM EDT [facility] 56 Eosinophils % 1.7 0.0 - 6.0 % 11/19/2023 2:31 PM EDT [facility] 56 Basophils % 0.2 0.0 - 2.0 % 11/19/2023 2:31 PM EDT [facility] 56 Absolute Neutrophils 5.67 1.80 - 7.70 K/uL 11/19/2023 2:31 PM EDT [facility] 56 Absolute Lymphocytes 1.89 1.00 - 4.80 K/ul 11/19/2023 2:31 PM EDT [facility] 56 Absolute Monocytes 1.16(H) 0.00 - 1.10 K/uL 11/19/2023 2:31 PM EDT [facility] 56 Absolute Eosinophils 0.15 0.00 - 0.70 K/uL 11/19/2023 2:31 PM EDT [facility] 56 Absolute Basophils 0.02 0.00 - 0.20 K/uL 11/19/2023 2:31 PM EDT [facility] 56 Blood Venous blood specimen / Unknown Venipuncture / Unknown 11/19/2023 2:26 PM EDT 11/19/2023 2:26 PM EDT Morales Rodriguez MD LAB BLOOD ORDERABLES [facility] [address] [place] [address] * (ABNORMAL) CBC (11/19/2023 2:26 PM EDT) WBC 8.89 4.00 - 10.80 K/uL 11/19/2023 2:31 PM EDT [facility] 56 RBC 3.80 3.85 - 5.15 M/uL 11/19/2023 2:31 PM EDT [facility] 56 HGB 11.6(L) 12.0 - 15.3 g/dL 11/19/2023 2:31 PM EDT [facility] 56 HCT 34.6(L) 36.0 - 45.2 % 11/19/2023 2:31 PM EDT [facility] 56 MCV 91.1 81.5 - 97.5 fL 11/19/2023 2:[address]T [address] MCH 30.5 27.0 - 34.0 pg 11/19/2023 2:31 PM EDT [place] [address] MCHC 33.5 32.0 - 36.0 g/dL 11/19/2023 2:31 PM EDT [place] [address] RDW 15.8 11.5 - 15.5 % 11/19/2023 2:31 PM EDT [facility] PLT 223 140 - 400 K/uL 11/19/2023 2:31 PM EDT [address] MPV 9.3 6.6 - 11.1 fL 11/19/2023 2:31 PM EDT [facility] Blood Venous blood specimen / Unknown Venipuncture / Unknown 11/19/2023 2:26 PM EDT 11/19/2023 2:26 PM EDT Morales Rodriguez MD LAB BLOOD ORDERABLES [facility] [address] [place] [address] * (ABNORMAL) COMPREHENSIVE METABOLIC PANEL (11/19/2023 2:26 PM EDT) BUN 27(H) 6 - 20 mg/dL 11/19/2023 2:46 PM EDT [facility] Creatinine 1.6(H) 0.5 - 1.0 mg/dL 11/19/2023 2:46 PM EDT [facility] 56 Estimated Glomerular Filtration Rate 32(L) >=60 mL/min 11/19/2023 2:46 PM EDT [facility] 56 Comment:eGFR is calculated b ased on the CKD-EPI 2020 equation. Sodium 139 135 - 146 mmol/L 11/19/2023 2:46 PM EDT [facility] 56 Potassium 4.5 3.5 - 5.1 mmol/L 11/19/2023 2:46 PM EDT [facility] 56 Chloride 106 98 - 107 mmol/L 11/19/2023 2:46 PM EDT [facility] 56 CO2 20(L) 22 - 32 mmol/L 11/19/2023 2:46 [address] EDT [address] Anion Gap 13 7 - 15 mmol/L 11/19/2023 2:46 PM EDT [address] Glucose 85 70 - 120 mg/dL 11/19/2023 2:46 PM EDT [address] Albumin 3.8 3.8 - 5.0 g/dL 11/19/2023 2:46 PM EDT [facility] 56 AST 48(H) 10 - 35 U/L 11/19/2023 2:46 PM EDT [address] Alkaline Phosphatase 135(H) 35 - 130 U/L 11/19/2023 2:46 PM EDT [address] Bilirubin, Total <0.2 <=1.2 mg/dL 11/19/2023 2:46 PM EDT [address] Calcium 9.7 8.4 - 10.2 mg/dL 11/19/2023 2:46 PM EDT [facility] 56 Protein 7.1 6.0 - 8.3 g/dL 11/19/2023 2:46 PM EDT [facility] 56 ALT 23 10 - 35 U/L 11/19/2023 2:46 PM EDT [facility] 56 Blood Venous blood specimen / Unknown Venipuncture / Unknown 11/19/2023 2:26 PM EDT 11/19/2023 2:26 PM EDT Morales Rodriguez MD LAB BLOOD ORDERABLES [facility] [address] [place] [address] * CALCIUM (11/18/2023 10:19 AM EDT) Calcium 8.9 8.4 - 10.2 mg/dL 11/19/2023 2:30 PM EDT [facility] Blood Venous blood specimen / Unknown Venipuncture / Unknown 11/18/2023 10:19 AM EDT 11/18/2023 10:19 AM EDT Morales Rodriguez MD LAB BLOOD ORDERABLES [facility] [address] [place] [address] documented in this encounter Visit Diagnoses Diagnosis 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 breast in female, estrogen receptor positive (HCC)- Primary Metastasis to bone (HCC) Secondary malignant neoplasm of bone and bone marrow Metastasis to liver (HCC) Secondary malignant neoplasm of liver Peritoneal carcinomatosis (HCC) Malignant neoplasm of peritoneum, unspecified Encounter for antineoplastic chemotherapy documented in this encounter Administered Medications Inactive Administered Medications - up to 3 most recent administrations Medication Order MAR Action Action Date Dose Rate Site Fulvestrant (Faslodex) inj 500 mg 500 mg, Intramuscular, ONCE, On Sat11/19/23 at 1415, For 1 dose Given 11/19/2023 1:25 PM EDT 500 mg Dorsogluteal Left documented in this encounter Care Teams Lgsw Relationship Specialty Start Date End Date Jasmyne Ross PA-C [address] [place] [address] [place] [address] PCP - General Physician Drying Oven Tender 11/04/23 documented as of this encounter
--- OUTSIDE RECORDS SUMMARY | 2023-12-20 21:05 | External Medical Summary ---
Demographics Address [address] [place] [address] Phone Unavailable Preferred Language Unknown Marital Status Unknown Judaism Affiliation Unknown Race Unknown Ethnic Group Unknown Author Name Unknown Address Unknown Organization K09:[facility] [address] [place] [address] Laboratory Report Ordering Provider Test Date Status MONIKA MARTINEZ 11/19/2023 14:26:03 Final Observation Date Value Abnormality Reference (Units ) Status BUN 11/19/2023 14:26:03 27 Above high normal 6-20 (mg/dL) Final Creatinine 11/19/2023 14:26:03 1.6 Above high normal 0.5-1.0 (mg/dL) Final Glomerular filtration rate/1.73 sq M.predicted [Volume Rate/Area] in Serum, Plasma or Blood by Creatinine-based formula (CKD-EPI) 11/19/2023 14:26:03 32 Below low normal >=60 (mL/min) Final eGFR is calculated based on the CKD-EPI 2020 equation. Sodium 11/19/2023 14:26:03 139 135-146 (m mol/L) Final Potassium 11/19/2023 14:26:03 4.5 3.5-5.1 (m mol/L) Final Cl 11/19/2023 14:26:03 106 98-107 (mm ol/L) Final CO2 11/19/2023 14:26:03 20 Below low normal 22- 32 (mmol/L) Final Anion gap 11/19/2023 14:26:03 13 7-15 (mmol /L) Final Glucose 11/19/2023 14:26:03 85 70-120 (mg /dL) Final Albumin 11/19/2023 14:26:03 3.8 3.8-5.0 (g /dL) Final AST (Aspartate aminotransferase) 11/19/2023 14:26:03 48 Above high normal 10-35 (U/L) Final Alk Phos 11/19/2023 14:26:03 135 Above high normal 35 -130 (U/L) Final Bilirubin, Total 11/19/2023 14:26:03 <0.2 <=1 .2 (mg/dL) Final Calcium 11/19/2023 14:26:03 9.7 8.4-10.2 ( mg/dL) Final Protein 11/19/2023 14:26:03 7.1 6.0-8.3 (g /dL) Final ALT (Alanine aminotransferase) 11/19/2023 14:26:03 23 10-35 (U/L) Tony collins Performing Location [facility] [address] [place] [address]
--- OUTSIDE RECORDS SUMMARY | 2023-12-20 21:05 | External Medical Summary | Summary of Care ---
Demographics Address [address] [place] [address] Home Phone Email Address Preferred Language Canadian Marital Status Unknown Anglican Affiliation Unknown Race White Ethnic Group Not or Lati no Author Name Unknown Organization [facility] Address [address] [place] [facility] [place] [place] [address] Phone [phone] Care Team Providers Care Steam Locomotive Firer/Fireman Name Role Phone Mahogany Valentin MD Primary Care Provide r Reason for Visit * Reason Comments Infusion Zometa Medication Administration Retacrit * Episode Based Medications (Routine) - Authorized Specialty Diagnoses / Procedures Referred By Contcorky t Referred To Contact Diagnoses 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 breast in female, estrogen receptor positive (HCC) Metastasis to bone (HCC) Metastasis to liver (HCC) Peritoneal carcinomatosis (HCC) Procedures NM INJECTION, FULVESTRANT Morales Rodriguez MD [address] [place] [address] Anc Hem/Onc [address] [address] Referral ID Status Reason Start Date Expiration Date V isits Requested Visits Authorized [id number] Authorized 09/13/2023 04/21/2099 999 999 Encounter Details Date Type Department Care Team (Latest Contact Info) Description 10/22/2023 12:15 PM EDT Immunization/ Injection Hematology/Oncology Treatment, [address] [address] NurseTravon 4 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 breast in female, estrogen receptor positive (HCC)*; Metastasis to bone (HCC); Metastasis to liver (HCC); Peritoneal carcinomatosis (HCC) Allergies No known active allergiesdocumented as of this encounter (statuses as of 11/28/2023) Medications Medication Sig Dispensed Refills Start Date End Date Status Acetaminophen 325 MG Oral Capsule Take by mouth. Active Venlafaxine HCl ER 150 MG Oral Capsule Extended Release 24 Hour (Effexor XR) TAKE ONE CAPSULE BY MOUTH EVERY DAY 100 Capsule 1 04/03/2023 Active Pravastatin Sodium 80 MG Oral TabletIndications:D yslipidemia, goal LDL below 160 TAKE ONE TABLET BY MOUTH EVERY DAY 90 Tablet 1 06/25/2023 Active Potassium & Sodium Phosphates 280-160-250 MG Oral Packet (Phos-Nak)Indicatio ns: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 breast in female, estrogen receptor positive (HCC),Metastasis to bone (HCC),Peritoneal carcinomatosis (HCC),Metastasis to liver (HCC),Hypophosphate alley Take 1 Packet by mouth in the morning. 30 Packet 3 09/13/2023 Active Apixaban 5 MG Oral Tablet (Eliquis)Indication s:History of DVT (deep vein thrombosis) Take 1 Tablet by mouth in the morning and 1 Tablet before bedtime. 180 Tablet 1 09/18/2023 Active Ondansetron HCl 4 MG Oral TabletIndications:M alignant neoplasm of upper-outer quadrant of left breast in female, estrogen receptor positive (HCC) Take 1 Tablet by mouth every 6 hours as needed for Nausea. 30 Tablet 3 09/18/2023 4 Discontinued Abemaciclib 150 MG Oral Tablet (Verzenio)Indicatio ns: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 breast in female, estrogen receptor positive (HCC) Take 1 Tablet by mouth in the morning and 1 Tablet before bedtime. 60 Tablet 5 09/18/2023 4 Discontinued documented as of this encounter (statuses as of 11/28/2023) Active Problems Problem Noted Date Diagnosed Date [...] as of this encounter (statuses as of 11/28/2023) Resolved Problems Problem Noted Date Diagnosed Date [...] as of this encounter (statuses as of 11/28/2023) Immunizations Name Administration Dates Next Due COVID-19 mRNA, LNP-s, No Pre serve, 2-Dose Series ([employer]) 01/24/2021,06/29/2020,06/08/2020 COVID-19, LNP-s, No Preserve , Adam-sucrose, [...] No 04/11/2023 Does the household have a [facility] source of income? (Household - for ages [...] Sign Reading Time Taken Comments Blood Pressure 160/83 10/22/2023 1:29 PM EDT Pulse 68 10/22/2023 1:29 PM EDT Temperature 36.1 C (97 F) 10/22/2023 1:29 PM EDT Respiratory Rate 18 10/22/2023 1:29 PM EDT Oxygen Saturation 96% 10/22/2023 1:29 PM EDT Inhaled Oxygen Concentration - - Weight - - Height - - Body Mass Index - - documented in this encounter Patient Instructions * Patient Instructions* Eri John LPN - 10/22/2023 3:34 PM EDT Your blood pressure today was high. 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 We recommend that you have your blood pressure rechecked within 7 days to make sure your blood pressure is under control. Please contact your primary care doctor's office to schedule an appointment as soon as possible. documented in this encounter Nursing Notes * Eri John LPN - 10/22/2023 1:30 PM EDT 1315: Pt arrived for Zometa infusion and Faslodex injection. Tad/Phos WNL. PIV in R metacarpal. Pt tolerated well. BP is slightly elevated. Pts kidney function is slightly elevated. Pt to receive 3mgof Zometa due to kidney function. Provider aware. Faslodex administered in B/L dorsogluteal. Pt hasno complaints at this time. 1400: Pt tolerated Zometa infusion well. PIV removed intact. Pts BP remains elevated. Pt reports "its not usually this high but I'm not usually getting an IV and 2 injections into my buttocks. " Pt to return in 4 weeks. Discharged in stable condition. documented in this encounter Plan of Treatment Upcoming Encounters Date Type Department Care Team (Late st Contact Info) Description 12/16/2023 10:20 AM EDT Laboratory Laboratory [address] [place] [phone] [place] [address] 12/17/2023 1:15 PM EDT Hem/Onc Treatment Hematology/Oncology Treatment, [place] [address] [facility] [phone] [place], Chair 8 Hem Onc [address] [place] [address] 01/07/2024 2:45 PM EDT Office Visit Hematology/Oncology [facility] [address] [facility] [place] [phone] Morales Rodriguez MD [address] [facility] [place] [address] 03/16/2024 1:00 PM EST Office Visit Family Medicine [address] [place] [phone] Mahogany Valentin MD [address] [place] [address] [place] [address] 03/20/2024 1:30 PM EST Imaging Radiology [address] [place] [address] 04/13/2024 1:00 PM EST Nurse Only Ancillary [address] [place] [address] Movveronicaey, Nurse Annual [address] [place] [address] Health Maintenance Due Date Last Done Comments [...] this encounter Medical Devices Implanted Type Area Welding Instructor Device Identifier Shelf Expiration Date Model / Serial / Lot Port Power Mri W/8fr Cath - [id number] Implanted:Qty : 1 on 05/25/2015 by Florence Mayfield MD at OR [facility] Left: Subclavian CR BARD : PERIPHERAL VASCULAR 08/17/2016 [id number] / / [id number] documented as of this encounter Visit Diagnoses Diagnosis 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 breast in female, estrogen receptor positive (HCC)- Primary Metastasis to bone (HCC) Secondary malignant neoplasm of bone and bone marrow Metastasis to liver (HCC) Secondary malignant neoplasm of liver Peritoneal carcinomatosis (HCC) Malignant neoplasm of peritoneum, unspecified documented in this encounter Administered Medications Inactive Administered Medications - up to 3 most recent administrations Medication Order MAR Action Action Date Dose Rate Site Fulvestrant (Faslodex) inj 500 mg 500 mg, Intramuscular, ONCE, On Sat10/22/23 at 1330, For 1 dose Given 10/22/2023 12:24 PM EDT 500 mg Dorsogluteal Left NSS infusion 500 mL, Intravenous, at 50 mL/hr, CONTINUOUS, Starting on Sat10/22/23 at 1400, Until Sat10/22/23 at 1935 Start Infusion 10/22/2023 1:18 PM EDT 500 mL 50 mL/hr Zoledronic Acid (Zometa) 3 mg in NSS 100 mL ivpb 3 mg, IV Piggyback, ONCE, 1 dose, On Sat10/22/23 at 1345, Administer over 15 Minutes Start Infusion 10/22/2023 1:36 PM EDT 3 mg 435 mL/hr documented in this encounter Care Teams Steam Locomotive Firer/Fireman Relationship Specialty Start Date End Date Mahogany Valentin MD [address] [place] [address] [place] [address] PCP - General Family Medicine 01/23/17 11/03/23 documented as of this encounter
--- OUTSIDE RECORDS SUMMARY | 2023-12-20 21:05 | External Medical Summary | Summary of Care ---
Demographics Address [address] [place] [address] Home Phone Email Address Preferred Language Azerbaijani Marital Status Unknown Yazidi Affiliation Unknown Race White Ethnic Group Not or Lati no Author Name Unknown Organization [facility] Address [address] [facility] [address] Phone [phone] Care Team Providers Care Public Health Educator Name Role Phone Unavailable Primary Care Provider Unavailabl e Reason for Visit * Reason Comments Nurse Documentation Hold Zometa Medication Administration Faslodex * Episode Based Medications (Routine) - Authorized Specialty Diagnoses / Procedures Referred By Contac t Referred To Contact Diagnoses 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 breast in female, estrogen receptor positive (HCC) Metastasis to bone (HCC) Metastasis to liver (HCC) Peritoneal carcinomatosis (HCC) Procedures [place] INJECTION, FULVESTRANT Morales Rodriguez MD [address] [place] [address] [place] [id number] Anc Hem/Onc [facility] Leatha [address] [place] [phone] Referral ID Status Reason Start Date Expiration Date V isits Requested Visits Authorized [id number] Authorized 09/13/2023 04/21/2099 999 999 Encounter Details Date Type Department Care Team (Latest Contact Info) Description 11/19/2023 1:15 PM EDT Hem/Onc Treatment Hematology/Oncolog y Treatment, [address] [phone] Leatha, Chair 1 Hem Onc [address] [place] [id number] 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 breast in female, estrogen receptor positive (HCC)*; Metastasis to bone (HCC); Metastasis to liver (HCC); Peritoneal carcinomatosis (HCC); Encounter for antineoplastic chemotherapy Allergies No known active allergiesdocumented as of this encounter (statuses as of 11/26/2023) Medications Medication Sig Dispensed Refills Start Date [...] as of this encounter (statuses as of 11/26/2023) Active Problems Problem Noted Date Diagnosed Date [...] as of this encounter (statuses as of 11/26/2023) Resolved Problems Problem Noted Date Diagnosed Date [...] as of this encounter (statuses as of 11/26/2023) Immunizations Name Administration Dates Next Due COVID-19 mRNA, LNP-s, No Pre serve, 2-Dose Series ([employer]) 01/24/2021,06/29/2020,06/08/2020 COVID-19, LNP-s, No Preserve , Adam-sucrose, Ages 12+ (Pfizer) 09/05/2021 COVID-19, MRNA-LNP, 23-24, P F, 30 MCG/0.3 mL, 12 YRS AND ABOVE, IM (PFIZER-Comirnaty) 01/16/2023 Covid-19, Mrna, Lnp-s, Pf, B ivalent, 30 Mcg, IM, 12 yrs and above ([employer]) 01/09/2022 Pneumococcal Conjugate Vacc, 13 Valent (Prevnar) [...] Has lab appointment scheduled for 12/15 at [facility] lab Patient understood and agreed documented in this encounter Plan of Treatment Upcoming Encounters Date Type Department Care Team (Late st Contact Info) Description 12/16/2023 10:20 AM EDT Laboratory Laboratory [address] [place] [phone] [facility] Lab [address] [place] [address] 12/17/2023 1:15 PM EDT Hem/Onc Treatment Hematology/Oncology Treatment, [address] [phone] Leatha, Chair 8 Hem Onc [address] [place] [address] 01/07/2024 2:45 PM EDT Office Visit Hematology/Oncology [facility] [address] [place] [phone] Morales Rodriguez MD [address] [place] [address] [place] [address] 03/16/2024 1:00 PM EST Office Visit Family Medicine [address] [place] [phone] Mahogany Valentin MD [address] [place] [address] [place] [address] 03/20/2024 1:30 PM EST Imaging Radiology [address] [place] [address] 04/13/2024 1:00 PM EST Nurse Only Ancillary [address] [place] [address] [place], Nurse Annual Wellness [address] [place] [address] [place] [address] Scheduled Orders Name Type Priority Associated Diagnoses [...] this encounter Medical Devices Implanted Type Area People Greeter Device Identifier Shelf Expiration Date Model / Serial / Lot Port Power Mri W/8fr Cath - [id number] Implanted:Qty : 1 on 05/25/2015 by Florence Mayfield MD at OR [facility] Left: Subclavian CR BARD : PERIPHERAL VASCULAR 08/17/2016 [id number] / / [id number] documented as of this encounter Procedures Procedure [...] 10.80 K/uL 11/19/2023 2:31 PM EDT [facility] [place] 56-02 Neutrophils % 63.8 40.0 - 75.0 % 11/19/2023 2:31 PM EDT [facility] 56-02 Lymphocytes % 21.3 18.0 - 42.0 % 11/19/2023 2:31 PM EDT [facility] 56 Monocytes % 13.0(H) 1.0 - 11.0 % 11/19/2023 2:31 PM EDT [facility] 56 Eosinophils % 1.7 0.0 - 6.0 % 11/19/2023 2:31 PM EDT [facility] 56 Basophils % 0.2 0.0 - 2.0 % 11/19/2023 2:31 PM EDT [facility] 56 Absolute Neutrophils 5.67 1.80 - 7.70 K/uL 11/19/2023 2:31 PM EDT [facility] 56 Absolute Lymphocytes 1.89 1.00 - 4.80 K/ul 11/19/2023 2:31 PM EDT [facility] Absolute Monocytes 1.16(H) 0.00 - 1.10 K/uL 11/19/2023 2:31 PM EDT [facility] Absolute Eosinophils 0.15 0.00 - 0.70 K/uL 11/19/2023 2:31 PM EDT [facility] 56 Absolute Basophils 0.02 0.00 - 0.20 K/uL 11/19/2023 2:31 PM EDT [facility] 56 Blood Venous blood specimen / Unknown Venipuncture / Unknown 11/19/2023 2:26 PM EDT 11/19/2023 2:26 PM EDT Morales Rodriguez MD LAB BLOOD ORDERABLES [facility] [address] [place], [place] [id number] * (ABNORMAL) CBC (11/19/2023 2:26 PM EDT) [facility] WBC 8.89 4.00 - 10.80 K/uL 11/19/2023 2:31 PM EDT [facility] 56 RBC 3.80 3.85 - 5.15 M/uL 11/19/2023 2:31 PM EDT [facility] 56 HGB 11.6(L) 12.0 - 15.3 g/dL 11/19/2023 2:31 PM EDT [facility] 56 HCT 34.6(L) 36.0 - 45.2 % 11/19/2023 2:31 PM EDT [place] [address] MCV 91.1 81.5 - 97.5 fL 11/19/2023 2:31 PM EDT [place] [address] MCH 30.5 27.0 - 34.0 pg 11/19/2023 2:31 PM EDT [place] [address] MCHC 33.5 32.0 - 36.0 g/dL 11/19/2023 2:31 PM EDT [place] [address] RDW 15.8 11.5 - 15.5 % 11/19/2023 2:31 PM EDT [place] [address] PLT 223 140 - 400 K/uL 11/19/2023 2:31 PM EDT [address] MPV 9.3 6.6 - 11.1 fL 11/19/2023 2:31 PM EDT [facility] Blood Venous blood specimen / Unknown Venipuncture / Unknown 11/19/2023 2:26 PM EDT 11/19/2023 2:26 PM EDT Morales Rodriguez MD LAB BLOOD ORDERABLES [place] [address] [place] [address] * (ABNORMAL) COMPREHENSIVE METABOLIC PANEL (11/19/2023 2:26 PM EDT) BUN 27(H) 6 - 20 mg/dL 11/19/2023 2:46 PM EDT [facility] Creatinine 1.6(H) 0.5 - 1.0 mg/dL 11/19/2023 2:46 PM EDT [place] [address] Estimated Glomerular Filtration Rate 32(L) >=60 mL/min 11/19/2023 2:46 PM EDT [facility] 56 Comment:eGFR is calculated b ased on the CKD-EPI 2020 equation. Sodium 139 135 - 146 mmol/L 11/19/2023 2:46 PM EDT [facility] Potassium 4.5 3.5 - 5.1 mmol/L 11/19/2023 2:46 PM EDT [place] [address] Chloride 106 98 - 107 mmol/L 11/19/2023 2:46 PM EDT [place] [address] CO2 20(L) 22 - 32 mmol/L 11/19/2023 2:46 PM EDT [place] [address] Anion Gap 13 7 - 15 mmol/L 11/19/2023 2:46 PM EDT [place] [address] Glucose 85 70 - 120 mg/dL 11/19/2023 2:46 PM EDT [address] Albumin 3.8 3.8 - 5.0 g/dL 11/19/2023 2:46 PM EDT [place] [address] AST 48(H) 10 - 35 U/L 11/19/2023 2:46 PM EDT [place] [address] Alkaline Phosphatase 135(H) 35 - 130 U/L 11/19/2023 2:46 PM EDT [place] [address] Bilirubin, Total <0.2 <=1.2 mg/dL 11/19/2023 2:46 PM EDT [place] [address] Calcium 9.7 8.4 - 10.2 mg/dL 11/19/2023 2:46 PM EDT [place] [address] Protein 7.1 6.0 - 8.3 g/dL 11/19/2023 2:46 PM EDT [place] [address] ALT 23 10 - 35 U/L 11/19/2023 2:46 PM EDT [place] [address] Blood Venous blood specimen / Unknown Venipuncture / Unknown 11/19/2023 2:26 PM EDT 11/19/2023 2:26 PM EDT Morales Rodriguez MD LAB BLOOD ORDERABLES [place] [address] [place] [address] * CALCIUM (11/18/2023 10:19 AM EDT) [facility] Signature Calcium 8.9 8.4 - 10.2 mg/dL 11/19/2023 2:30 PM EDT [facility] Blood Venous blood specimen / Unknown Venipuncture / Unknown 11/18/2023 10:19 AM EDT 11/18/2023 10:19 AM EDT Morales Rodriguez MD LAB BLOOD ORDERABLES [facility] [address] [place] [address] documented in this encounter Visit Diagnoses Diagnosis [...]
--- OUTSIDE RECORDS SUMMARY | 2023-12-20 21:05 | External Medical Summary | Summary of Care ---
Demographics Address [address] [place] [address] Home Phone Email Address Preferred Language Liberian Marital Status Unknown Restorationism Affiliation Unknown Race White Ethnic Group Not or Lati no Author Name Unknown Organization [facility] Address [address] [place] [facility] [place] [place] [address] Phone [phone] Care Team Providers Care Grassland Conservationist Name Role Phone Mahogany Valentin MD Primary [...] to liver (HCC) Peritoneal carcinomatosis (HCC) Procedures [place] INJECTION, FULVESTRANT Morales Rodriguez MD [address] [place] [address] Anc Hem/Onc [address] [address] Referral ID Status Reason Start Date Expiration Date V isits Requested Visits Authorized [id number] Authorized 09/13/2023 04/21/2099 999 999 Encounter Details Date Type Department Care Team (Latest Contact Info) Description 10/22/2023 12:15 PM EDT Immunization/ Injection Hematology/Oncology Treatment, [address] [phone] NurseTravon 4 Malignant neoplasm of [...] mRNA, LNP-s, No Pre serve, 2-Dose Series ([employer]) 01/24/2021,06/29/2020,06/08/2020 COVID-19, LNP-s, No Preserve , Adam-sucrose, [...] No 04/11/2023 Does the household have a zuni hospitallar source of income? (Household - for [...] today was high. This can lead to exterminator health problems. We recommend that you have [...] Description 12/16/2023 10:20 AM EDT Laboratory Laboratory [address] [place] [phone] [place] [address] 12/17/2023 1:15 PM EDT Hem/Onc Treatment Hematology/Oncology Treatment, [place] [facility] [phone] [place], Chair 8 Hem Onc [address] [place] [address] 01/07/2024 2:45 PM EDT Office Visit Hematology/Oncology [facility] 200 [facility] [place] [phone] Morales Rodriguez MD 200 [facility] [place] [address] 03/16/2024 1:00 PM EST Office Visit Family Medicine [address] [place] [phone] Mahogany Valentin MD [address] [place] [address] [place] [address] 03/20/2024 1:30 PM EST Imaging Radiology [address] [place] [address] 04/13/2024 1:00 PM EST Nurse Only Ancillary [address] [place] [address] Movveronicaey, Nurse Annual [address] [place] [address] Health Maintenance Due Date Last Done Comments [...] this encounter Medical Devices Implanted Type Area Web Feeder Device Identifier Shelf Expiration Date Model / Serial / Lot Port Power Mri W/8fr Cath - [id number] Implanted:Qty : 1 on 05/25/2015 by Florence Mayfield MD at OR [facility] Left: Subclavian CR BARD : PERIPHERAL VASCULAR 08/17/2016 [id number] / / [id number] documented as of this encounter Visit Diagnoses [...] mL/hr documented in this encounter Care Teams Grassland Conservationist Relationship Specialty Start Date End Date Mahogany Valentin MD [address] [place] [address] [place] [address] PCP - General Family Medicine 01/23/17 11/03/23 documented as of this encounter
--- OUTSIDE RECORDS SUMMARY | 2023-12-20 21:05 | External Medical Summary ---
Demographics Address [address] [facility] [place] [address] Phone Unavailable Preferred Language Unknown Marital Status Unknown Orthodox Affiliation Unknown Race Unknown Ethnic Group Unknown Author Name Unknown Address Unknown Organization K01:[facility] [address] [place] [address] Laboratory Report Ordering Provider Test Date Status MONIKA MARTINEZ 11/18/2023 10:19:50 Final Observation Date Value Abnormality Reference (Units ) Status Phosphate 11/18/2023 10:19:50 3.2 2.5-4.8 (m g/dL) Final Performing Location [facility] [address] [place] [address]
--- OUTSIDE RECORDS SUMMARY | 2023-12-20 21:05 | External Medical Summary | Summary of Care ---
Demographics Address [address] [place] [address] Home Phone Email Address Preferred Language Azeri Marital Status Unknown Sabianist Affiliation Unknown Race White Ethnic Group Not or Lati no Author Name Unknown Organization [facility] Address [address] [facility] [place] [address] Phone [phone] Care Team Providers Care Tannery Worker Name Role Phone Jasmyne Ross PA-C Primary Care Provider [phone] Encounter Details Date Type Department Care Team (Late st Contact Info) Description 11/19/2023 Orders Only Hematology/Oncology Pia Zhang [place] 200 [facility] [place] [phone] Morales [facility] MD [facility] [address] Allergies No known active allergiesdocumented as of [...] Overview: Per Lipid Taxonomy. Mixed dyslipidemia 01/07/2003 12/15/200 9 Overview: Per Lipid Taxonomy. Anxiety 01/07/2003 08/23/2022 Other (abnormal) findings on radiological examination of breast 01/07/2003 06/03/2015 HISTORY OF TOBACCO USE 01/07/200302/16 Menopause 01/07/2003 02/16/2015 Osteoporosis 01/07/2003 02/16/2015 Tobacco use disorder 017 documented as of this encounter (statuses as of 11/19/2023) Immunizations Name Administration Dates Next Due COVID-19 mRNA, LNP-s, No Pre serve, 2-Dose Series ([employer]) 01/24/2021,06/29/2020,06/08/2020 COVID-19, LNP-s, No Preserve , Adam-sucrose, Ages 12+ ([employer]) 09/05/2021 COVID-19, MRNA-LNP, 23-24, P F, 30 MCG/0.3 mL, 12 YRS AND ABOVE, IM ([facility]) 01/16/2023 Covid-19, Mrna, Lnp-s, Pf, B ivalent, 30 Mcg, IM, 12 yrs and above ([employer]) 01/09/2022 Pneumococcal Conjugate Vacc, 13 Valent (Prevnar) [...] Description 12/16/2023 10:20 AM EDT Laboratory Laboratory [address] [place] [phone] [facility] Lab [address] [place] [address] 12/17/2023 1:15 PM EDT Hem/Onc Treatment Hematology/Oncology Treatment, [address] [place] [phone] Leatha, Chair 8 Hem Onc [address] [place] [address] 01/07/2024 2:45 PM EDT Office Visit Hematology/Oncology [address] [place] [phone] Morales Rodriguez MD [address] [place] [address] [place] [address] 03/16/2024 1:00 PM EST Office Visit Family Medicine [address] [place] [phone] Mahogany Valentin MD [address] [place] [address] [place] [address] 03/20/2024 1:30 PM EST Imaging Radiology [address] [place] [address] 04/13/2024 1:00 PM EST Nurse Only Ancillary [address] [place] [address] [place], Nurse Annual [address] [place] [address] Health Maintenance Due Date Last Done Comments [...] this encounter Medical Devices Implanted Type Area Health Information Specialist Device Identifier Shelf Expiration Date Model / Serial / Lot Port Power Mri W/8fr Cath - [id number] Implanted:Qty : 1 on 05/25/2015 by Florence Mayfield MD at OR [facility] Left: Subclavian CR BARD : PERIPHERAL VASCULAR 08/17/2016 [id number] / / [id number] documented as of this encounter Care Teams Tannery Worker Relationship Specialty Start Date End Date Jasmyne Ross PA-C [address] [place] [address] [place] [address] PCP - General Physician Police Radio Dispatcher 11/04/23 documented as of this encounter
--- OUTSIDE RECORDS SUMMARY | 2023-12-20 21:05 | External Medical Summary | Summary of Care ---
Demographics Address [address] [place] [place] [address] Home Phone Email Address Preferred Language Welsh Marital Status Unknown Anglican Affiliation Unknown Race White Ethnic Group Not or Lati no Author Name Unknown Organization [facility] Address [address] [facility] [place] [address] Phone [phone] Care Team Providers Care Product Responsibility Liaison Name Role Phone Unavailable Primary Care Provider Unavailabl e Encounter Details Date Type Department Care Team (Late st Contact Info) Description 12/17/2023 Orders Only Hematology/Oncology Pia Zhang [place] 200 [facility] [place] [phone] Morales Rodriguez MD 200 [facility] [address] Hypercalcemia*; 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 [...] mRNA, LNP-s, No Pre serve, 2-Dose Series ([employer]) 01/24/2021,06/29/2020,06/08/2020 COVID-19, LNP-s, No Preserve , Adam-sucrose, Ages 12+ ([employer]) 09/05/2021 COVID-19, MRNA-LNP, 23-24, P F, 30 MCG/0.3 mL, 12 YRS AND ABOVE, IM (PFIZER-Comirnaty) 01/16/2023 Covid-19, Mrna, Lnp-s, Pf, B ivalent, 30 Mcg, IM, 12 yrs and above ([employer]'s in [employer] Hand[employer]) 01/09/2022 Pneumococcal Conjugate Vacc, 13 Valent (Prevnar) [...] on file documented as of this encounter Progress Notes * Morales Rodriguez MD - 12/17/2023 6:39 AM EDT Blood workup done on 12/16/2023: -BUN/Creat: 20/1.4, Calcium 11.4 -AST 78, ALT 28, alkaline phosphatase 194. Bilirubin level 0.4. - WBC 8400, Hemoglobin and hematocrit -11.8/36, Platelet count of [id number]. Overall improvement of the kidney function test noted, hypercalcemia noted. She is on Zometa, last dose received on 10/22/2023. She is scheduled for Faslodex and Zometa today at 1:15 p.m.. I would have to give her IV hydration 1 L of normal saline over 2 hours. Would like to repeat another comprehensive metabolic panel in about 2 days. Advised her to drink plenty of water and avoid Calcium supplementation and vitamin-D supplementation at this time. documented in this encounter Plan of Treatment Upcoming Encounters Date Type Department Care Team (Late st Contact Info) Description 12/17/2023 1:15 PM EDT Hem/Onc Treatment Hematology/Oncology Treatment, [place] [address] [place] [phone] Leatha, Chair 7 Hem Onc [place] [address] [place] [address] 01/07/2024 2:45 PM EDT Office Visit Hematology/Oncology [facility] [address] [place] [phone] Morales Rodriguez MD [address] [place] [address] 01/13/2024 10:20 AM EDT Laboratory Laboratory [address] [place] [phone] [place] [address] 01/14/2024 1:30 PM EDT Hem/Onc Treatment Hematology/Oncology Treatment, [place] [address] [place] [phone] Leatha, Chair 5 Hem Onc [facility] 200 [facility] [place] [address] 03/16/2024 1:00 PM EST Office Visit Family Medicine [address] [place] [phone] Mahogany Valentin MD [address] [place] [address] [place] [address] 03/20/2024 1:30 PM EST Imaging Radiology [address] [place] [address] 04/13/2024 1:00 PM EST Nurse Only Ancillary [address] [place] [address] [place], Nurse Annual [address] [place] [address] Health Maintenance Due Date Last Done Comments [...] this encounter Medical Devices Implanted Type Area Ip Network Architect Device Identifier Shelf Expiration Date Model / Serial / Lot Port Power Mri W/8fr Cath - [id number] Implanted:Qty : 1 on 05/25/2015 by Florence [place] MD at OR [facility] Left: Subclavian CR BARD : PERIPHERAL VASCULAR 08/17/2016 [id number] / / [id number] documented as of this encounter Visit Diagnoses Diagnosis Hypercalcemia- Primary 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 breast in female, estrogen receptor positive (HCC) Metastasis to bone (HCC) Secondary malignant neoplasm of bone and bone marrow Metastasis to liver (HCC) Secondary malignant neoplasm of liver Peritoneal carcinomatosis (HCC) Malignant neoplasm of peritoneum, unspecified documented in this encounter
--- OUTSIDE RECORDS SUMMARY | 2023-12-20 21:05 | External Medical Summary | Summary of Care ---
Demographics Address [address] [place] [address] Home Phone Email Address Preferred Language Hebrew Marital Status Unknown Hinduism Affiliation Unknown Race White Ethnic Group Not or Lati no Author Name Unknown Organization [facility] Address [address] [place] [address] Phone [phone] Care Team Providers Care Oil And Gas Lease Pumper Name Role Phone Jasmyne Ross PA-C Primary Care Provider [phone] Encounter Details Date Type Department Care Team (Late st Contact Info) Description 11/18/2023 Documentation Genetics HemOnc, [facility] [address], [place] [phone] Rupa Gonzalez, MS [address], [place] [id number] Genetic screening* Allergies No known active allergiesdocumented as of [...] mRNA, LNP-s, No Pre serve, 2-Dose Series ([employer]) 01/24/2021,06/29/2020,06/08/2020 COVID-19, LNP-s, No Preserve , Adam-sucrose, Ages 12+ (Pfizer) 09/05/2021 COVID-19, MRNA-LNP, 23-24, P F, 30 MCG/0.3 mL, 12 YRS AND ABOVE, IM ([facility]) 01/16/2023 Covid-19, Mrna, Lnp-s, Pf, B ivalent, 30 Mcg, IM, 12 yrs and above ([employer]) 01/09/2022 Pneumococcal Conjugate Vacc, 13 Valent (Prevnar) [...] 18 years and over) Not on file 3 Are you (or your family) radha eless [...] as of this encounter Progress Notes * Rupa Gonzalez, MS - 11/18/2023 10:58 AM EDT Cancer Genetics Risk Assessment [facility] at [facility] E-Consult: Review of Tumor Sequencing for Germline Testing Candidates Summary & Recommendation: Genetics evaluation not warranted. The reported somatic variant(s) are not expected to be of germline etiology. While no variants on this test were reported suggestive of inherited cancer risk, some findings maybe filtered out based on population frequency, reversion to WT, or allelic dropout among other technical limitations common with NGS. Up to 15% of BRCA1/2 and up to 33% of Brooks variants are not detectable through NGS technology and may be missed on this testing. While a pathogenic CDH1 variant was noted, this is too low of a VAF to be concerned about a germline variant, given the age at initial diagnosis. Per Chart Review HPI: Kianna is a 78 year old female with a diagnosis of metastatic breast carcinoma consistent withbreast primary. ER+, FL+, Her2- - The malignancy is MSI-Stable and Low TMB. - Prior Germline Testing: No - There is a family history of cancer, but is not strongly suggestive of an inherited cancer syndrome. Family History Problem Relation Name Age of Onset Lung cancer Mother MyGenVar Tumor Sequencing Panel was completed in 10/2023. Note: Review for germline workup is only performed on findings with an associated hereditary cancersyndrome. In general, copy number variation >2 is not of germline concern. Gene Variant Name VAF% Variant Classification PIK3CA E726K 4.90% Tier 1: Strong significance PIK3CA N345K 5.60% Tier 1: Strong significance CDH1 I050Ode*18 5.10% Tier 2: Potential significance FGFR1 FGFR1 CN 11 Tier 2: Potential significance USP9X K9797V 6.10% Tier 3: Unknown clinical significance ERBB4 G702V 50.80% Tier 3: Unknown clinical significance HNF1A HNF1A CN 6.3 Tier 3: Unknown clinical significance RECQL4 RECQL4 CN 6.7 Tier 3: Unknown clinical significance Unless highlighted in red, the above findings were reviewed and not of germline concern. Rupa Gonzalez MS, [facility] - Licensed, Certified Genetic Counselor 11/18/2023, 10:58 AM documented in this encounter Plan of Treatment Upcoming Encounters Date Type Department Care Team (Late st Contact Info) Description 11/19/2023 1:15 PM EDT Hem/Onc Treatment Hematology/Oncology Treatment, [address] [phone] Leatha, Chair 1 Hem Onc [address] [place] [address] 01/07/2024 2:45 PM EDT Office Visit Hematology/Oncology [address] [place] [phone] Morales Rodriguez MD [address] [place] [address] [place] [address] 03/16/2024 1:00 PM EST Office Visit Family Medicine [address] [place] [phone] Mahogany Valentin MD [address] [place] [address] [place] [address] 03/20/2024 1:30 PM EST Imaging Radiology [address] [place] [address] 04/13/2024 1:00 PM EST Nurse Only Ancillary [address] [place] [address] Roz, Nurse [address] [place] [address] Health Maintenance Due Date Last Done Comments [...] this encounter Medical Devices Implanted Type Area Aeronautical Project Engineer Device Identifier Shelf Expiration Date Model / Serial / Lot Port Power Mri W/8fr Cath - [id number] Implanted:Qty : 1 on 05/25/2015 by Florence Mayfield MD at OR [facility] Left: Subclavian CR BARD : PERIPHERAL VASCULAR 08/17/2016 [id number] / / [id number] documented as of this encounter Visit Diagnoses Diagnosis Genetic screening- Primary Other genetic screening documented in this encounter Care Teams Oil And Gas Lease Pumper Relationship Specialty Start Date End Date Jasmyne Ross PA-C [address] [place] [address] [place] [address] PCP - General Physician [employer] 11/04/23 documented as of this encounter
--- OUTSIDE RECORDS SUMMARY | 2023-12-20 21:05 | External Medical Summary ---
Author Name Unknown Address Unknown Organization K09:[facility] [place] [address] Laboratory Report Ordering Provider Test Date Status MONIKA MARTINEZ 11/19/2023 14:26:03 Final Observation Date Value Abnormality Reference (Units ) Status SYNC LEUKOCYTES IN BLOOD BY AUTOMATED COUNT 11/19/2023 14:26:03 8.89 4.00-10.80 (K/uL) Final Segs 11/19/2023 14:26:03 63.8 40.0-75.0 (%) Final Lymphs % 11/19/2023 14:26:03 21.3 18.0-42.0 (%) Final Monos 11/19/2023 14:26:03 13.0 Above high normal 1.0-11.0 (%) Final Eosinophils 11/19/2023 14:26:03 1.7 0.0-6.0 (%) Final Basos 11/19/2023 14:26:03 0.2 0.0-2.0 (%) Final Absolute Segs 11/19/2023 14:26:03 5.67 1.80-7.70 (K/uL) Final Lymphs, absolute 11/19/2023 14:26:03 1.89 1.00-4.80 (K/ul) Final Monos, Abs 11/19/2023 14:26:03 1.16 Above high normal 0.00-1.10 (K/uL) Final Eos, Abs 11/19/2023 14:26:03 0.15 0.00-0.70 (K/uL) Final Basos, Abs 11/19/2023 14:26:03 0.02 0.00-0.20 (K/uL) Final Performing Location [facility] [place] [address]
--- OUTSIDE RECORDS SUMMARY | 2023-12-20 21:05 | External Medical Summary | Summary of Care ---
Demographics Address [address] [place] [address] Home Phone Email Address Preferred Language Kiswahili Marital Status Unknown Rastafari Affiliation Unknown Race White Ethnic Group Not or Lati no Author Name Unknown Organization [facility] Address [address] [place] [address] Phone [phone] Care Team Providers Care Greens Cutter Name Role Phone Mahogany Valentin MD Primary Care Provide r Reason for Visit * Reason Comments Medication Administration Faslodex * Episode Based Medications (Routine) - Authorized Specialty Diagnoses / Procedures Referred By Contac t Referred To Contact Diagnoses 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 breast in female, estrogen receptor positive (HCC) Metastasis to bone (HCC) Metastasis to liver (HCC) Peritoneal carcinomatosis (HCC) Procedures SD INJECTION, FULVESTRANT Morales Rodriguez MD [address] [facility] [place] [address] Anc Hem/Onc [address] [address] Referral ID Status Reason Start Date Expiration Date V isits Requested Visits Authorized [id number] Authorized 09/13/2023 04/21/2099 999 [id number] Encounter Details Date Type Department Care Team (Latest Contact Info) Description 09/24/2023 12:00 PM EDT Immunization/ Injection Hematology/Oncology Treatment, [address] [phone] Nurse, Travon [address] [place] [address] 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 breast in female, estrogen receptor positive (HCC)*; Metastasis to bone (HCC); Metastasis to liver (HCC); Peritoneal carcinomatosis (HCC) Allergies No known active allergiesdocumented as of this encounter (statuses as of 10/31/2023) Medications Medication Sig Dispensed Refills Start Date End Date Status Acetaminophen 325 MG Oral Capsule Take by mouth. Activ e Venlafaxine HCl ER 150 MG Oral Capsule Extended Release 24 Hour (Effexor XR) TAKE ONE CAPSULE BY MOUTH EVERY DAY 100 Capsule 1 3 Active Pravastatin Sodium 80 MG Oral TabletIndications:D yslipidemia, goal LDL below 160 TAKE ONE TABLET BY MOUTH EVERY DAY 90 Tablet 1 4 Active Potassium & Sodium Phosphates 280-160-250 MG Oral Packet (Phos-Nak)Indicatio ns: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 breast in female, estrogen receptor positive (HCC),Metastasis to bone (HCC),Peritoneal carcinomatosis (HCC),Metastasis to liver (HCC),Hypophosphate alley Take 1 Packet by mouth in the morning. 30 Packet 3 4 Active Additional Information Patient not taking.Reported on 09/17/2023 Apixaban 5 MG Oral Tablet (Eliquis)Indication s:History of DVT (deep vein thrombosis) Take 1 Tablet by mouth in the morning and 1 Tablet before bedtime. 180 Tablet 1 4 Active Ondansetron HCl 4 MG Oral TabletIndications:M alignant neoplasm of upper-outer quadrant of left breast in female, estrogen receptor positive (HCC) Take 1 Tablet by mouth every 6 hours as needed for Nausea. 30 Tablet 3 4 10/28/19 24 Discontinued Abemaciclib 150 MG Oral Tablet (Verzenio)Indicatio ns: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 breast in female, estrogen receptor positive (HCC) Take 1 Tablet by mouth in the morning and 1 Tablet before bedtime. 60 Tablet 5 4 10/28/19 24 Discontinued documented as of this encounter (statuses as of 10/31/2023) Active Problems Problem Noted Date Diagnosed Date [...] as of this encounter (statuses as of 10/31/2023) Resolved Problems Problem Noted Date Diagnosed Date [...] as of this encounter (statuses as of 10/31/2023) Immunizations Name Administration Dates Next Due COVID-19 mRNA, LNP-s, No Pre serve, 2-Dose Series ([employer]) 01/24/2021,06/29/2020,06/08/2020 COVID-19, LNP-s, No Preserve , Adam-sucrose, Ages 12+ (Pfizer) 09/05/2021 COVID-19, MRNA-LNP, 23-24, P F, 30 MCG/0.3 mL, 12 YRS AND ABOVE, IM ([facility]) 01/16/2023 Covid-19, Mrna, Lnp-s, Pf, B ivalent, 30 Mcg, IM, 12 yrs and above ([employer]) 01/09/2022 Pneumococcal Conjugate Vacc, 13 Valent (Prevnar) [...] as of this encounter Nursing Notes * Shima Núñez LPN - 09/24/2023 12:06 PM EDT Faslodex 500mg administered IM into the left and right dorsogluteal muscle per standing order (250mg left and 250mg right). Patient tolerated injection and will return in 2 weeks. documented in this encounter Plan of Treatment Upcoming Encounters Date Type Department Care Team (Late st Contact Info) Description 11/19/2023 1:15 PM EDT Hem/Onc Treatment Hematology/[address] [phone] Leatha, Chair 1 Hem Onc [address] [place] [address] 01/07/2024 2:45 PM EDT Office Visit Hematology/Oncology [facility] [address] [place] [phone] Morales Rodriguez MD [address] [place] [address] [place] [address] 03/16/2024 1:00 PM EST Office Visit Family Medicine [address] [phone] Mahogany Valentin MD [address] [place] [address] [place] [address] 03/20/2024 1:30 PM EST Imaging Radiology [address] [place] [address] 04/13/2024 1:00 PM EST Nurse Only Ancillary [address] [place] [address] [place], Nurse Annual Wellness [address] [place] [address] [place] [address] Health Maintenance Due Date Last Done Comments [...] this encounter Medical Devices Implanted Type Area Paint Spray Tender Device Identifier Shelf Expiration Date Model / Serial / Lot Port Power Mri W/8fr Cath - [id number] Implanted:Qty : 1 on 05/25/2015 by Florence Mayfield MD at OR [facility] Left: Subclavian CR BARD : PERIPHERAL VASCULAR 08/17/2016 [id number] / / [id number] documented as of this encounter Visit Diagnoses [...] 500 mg 500 mg, Intramuscular, ONCE, On Sat09/24/23 at 1200, For 1 dose Given 09/24/2023 11:57 AM EDT 500 mg Dorsogluteal Left documented in this encounter Care Teams Greens Cutter Relationship Specialty Start Date End Date Mahogany Valentin MD [address] [place] [address] [place] [phone] PCP - General Family Medicine 01/23/17 documented as of this encounter
--- OUTSIDE RECORDS SUMMARY | 2023-12-20 21:05 | External Medical Summary ---
Demographics Address [address] [facility] [place] [address] Phone Unavailable Preferred Language Unknown Marital Status Unknown Moravian Affiliation Unknown Race Unknown Ethnic Group Unknown Author Name Unknown Address Unknown Organization K01[facility] - [address] [place] [address] Laboratory Report Ordering Provider Test Date Status MONIKA MARTINEZ 12/16/2023 11:19:54 Final Observation Date Value Abnormality Reference (Units ) Status Phosphate 12/16/2023 11:19:54 2.8 2.5-4.8 (m g/dL) Final Performing Location [facility] [address] [place] [address]
--- OUTSIDE RECORDS SUMMARY | 2023-12-20 21:05 | External Medical Summary ---
Demographics Address [address] [facility] [place] [address] Phone Unavailable Preferred Language Unknown Marital Status Unknown Hoahaoism Affiliation Unknown Race Unknown Ethnic Group Unknown Author Name Unknown Address Unknown Organization K[facility] [place] [address] [place] [place] [address] Laboratory Report Ordering Provider Test Date Status MONIKA MARTINEZ 11/18/2023 10:19:50 Final Observation Date Value Abnormality Reference (Units ) Status Calcium 11/18/2023 10:19:50 8.9 8.4-10.2 ( mg/dL) Final Performing Location [facility] [address] [place] [address]
--- OUTSIDE RECORDS SUMMARY | 2023-12-20 21:05 | External Medical Summary ---
Author Name Unknown Address Unknown Organization K09[facility] [place] [address] Laboratory Report Ordering Provider Test Date Status MONIKA MARTINEZ 11/19/2023 14:26:03 Final Observation Date Value Abnormality Reference (Units ) Status WBC, Total 11/19/2023 14:26:03 8.89 4.00-10.8 0 (K/uL) Final RBC 11/19/2023 14:26:03 3.80 3.85-5.15 (M/uL) Final Hemoglobin 11/19/2023 14:26:03 11.6 Below low normal 12 .0-15.3 (g/dL) Final HCT 11/19/2023 14:26:03 34.6 Below low normal 36. 0-45.2 (%) Final MCV 11/19/2023 14:26:03 91.1 81.5-97.5 (fL) Final MCH 11/19/2023 14:26:03 30.5 27.0-34.0 (pg) Final MCHC 11/19/2023 14:26:03 33.5 32.0-36.0 (g/dL) Final RDW 11/19/2023 14:26:03 15.8 11.5-15.5 (%) Final Platelets 11/19/2023 14:26:03 223 140-400 (K /uL) Final MPV 11/19/2023 14:26:03 9.3 6.6-11.1 ( fL) Final Performing Location [place] [address]
--- OUTSIDE RECORDS SUMMARY | 2023-12-20 21:05 | External Medical Summary ---
Author Name Unknown Address Unknown Organization K01:[facility] [place] - [address] [facility] [address] Laboratory Report Ordering Provider Test Date Status MONIKA MARTINEZ 12/16/2023 11:19:54 Final Observation Date Value Abnormality Reference (Units ) Status SYNC LEUKOCYTES IN BLOOD BY AUTOMATED COUNT 12/16/2023 11:19:54 8.45 4.00-10.80 (K/uL) Final Segs 12/16/2023 11:19:54 62.3 40.0-75.0 (%) Final Lymphs % 12/16/2023 11:19:54 24.9 18.0-42.0 (%) Final Monos 12/16/2023 11:19:54 11.0 1.0-11.0 (%) Final Eosinophils 12/16/2023 11:19:54 0.8 0.0-6.0 (%) Final Basos 12/16/2023 11:19:54 0.6 0.0-2.0 (%) Final Immature Granulocyte, Percent 12/16/2023 11:19:54 0.4 0.0-2.0 (%) Final Absolute Segs 12/16/2023 11:19:54 5.27 1.80-7.70 (K/uL) Final Lymphs, absolute 12/16/2023 11:19:54 2.10 1.00-4.80 (K/ul) Final Monos, Abs 12/16/2023 11:19:54 0.93 0.00-1.10 (K/uL) Final Eos, Abs 12/16/2023 11:19:54 0.07 0.00-0.70 (K/uL) Final Basos, Abs 12/16/2023 11:19:54 0.05 0.00-0.20 (K/uL) Final Immature Granulocytes, Number 12/16/2023 11:19:54 0.03 0.00-0.20 (K/uL) Final Performing Location [facility] [place] - [facility] [address] [place] [address]
--- OUTSIDE RECORDS SUMMARY | 2023-12-20 21:06 | External Medical Summary ---
Demographics Address [address] [place] [address] Phone Unavailable Preferred Language Unknown Marital Status Unknown Cheondoism Affiliation Unknown Race Unknown Ethnic Group Unknown Author Name Unknown Address Unknown Organization K01:[facility] [place] [address] [place] [address] Laboratory Report Ordering Provider Test Date Status MONIKA MARTINEZ 10/14/2023 10:45:52 Final Observation Date Value Abnormality Reference (Units ) Status BUN 10/14/2023 10:45:52 19 6-20 (mg/dL) Final Creatinine 10/14/2023 10:45:52 1.4 Above high normal 0.5-1.0 (mg/dL) Final Glomerular filtration rate/1.73 sq M.predicted [Volume Rate/Area] in Serum, Plasma or Blood by Creatinine-based formula (CKD-EPI) 10/14/2023 10:45:52 41 Below low normal >=60 (mL/min) Final eGFR is calculated based on the CKD-EPI 2020 equation Sodium 10/14/2023 10:45:52 136 135-146 (m mol/L) Final Potassium 10/14/2023 10:45:52 4.2 3.5-5.1 (m mol/L) Final Cl 10/14/2023 10:45:52 103 98-107 (mm ol/L) Final CO2 10/14/2023 10:45:52 19 Below low normal 22- 32 (mmol/L) Final Anion gap 10/14/2023 10:45:52 14 7-15 (mmol /L) Final Glucose 10/14/2023 10:45:52 105 70-120 (mg /dL) Final Albumin 10/14/2023 10:45:52 4.1 3.8-5.0 (g /dL) Final AST (Aspartate aminotransferase) 10/14/2023 10:45:52 44 Above high normal 10-35 (U/L) Final Alk Phos 10/14/2023 10:45:52 147 Above high normal 35 -130 (U/L) Final Bilirubin, Total 10/14/2023 10:45:52 0.2 <=1 .2 (mg/dL) Final Calcium 10/14/2023 10:45:52 8.6 8.4-10.2 ( mg/dL) Final Protein 10/14/2023 10:45:52 6.9 6.0-8.3 (g /dL) Final ALT (Alanine aminotransferase) 10/14/2023 10:45:52 19 10-35 (U/L) Tony collins Performing Location [facility] [place] [facility] [address] [facility] [address]
--- OUTSIDE RECORDS SUMMARY | 2023-12-20 21:06 | External Medical Summary | Summary of Care ---
Demographics Address [address] [place] [address] Home Phone Email Address Preferred Language Lao Marital Status Unknown Quaker Affiliation Unknown Race White Ethnic Group Not or Lati no Author Name Unknown Organization [facility] Address [address] [place] [address] Phone [phone] Care Team Providers Care Metal Patternmaker Name Role Phone Mahogany Valentin MD Primary Care Provide r Reason for Visit * Reason Comments Medication Management Encounter Details Date Type Department Care Team (Late st Contact Info) Description 10/15/2023 9:30 AM EDT Pharmacy Pharmacy Hematology Oncology [facility] [address] [place] [address] [facility] Hem/Onc [address] [place] [address] 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 breast in female, estrogen receptor positive (HCC)* Allergies No known active allergiesdocumented as of this encounter (statuses as of 10/16/2023) Medications Medication Sig Dispensed Refills Start Date End Date Status Acetaminophen 325 MG Oral Capsule Take by mouth. Active Venlafaxine HCl ER 150 MG Oral Capsule Extended Release 24 Hour (Effexor XR) TAKE ONE CAPSULE BY MOUTH EVERY DAY 100 Capsule 1 04/03/2023 Active Pravastatin Sodium 80 MG Oral TabletIndications:Dy [...] the morning. 30 Packet 3 09/13/2023 Active Additional Information Patient not taking.Reported on 09/17/2023 Apixaban 5 MG Oral Tablet (Eliquis)Indications :History of DVT (deep vein thrombosis) Take 1 Tablet by mouth in the morning and 1 Tablet before bedtime. 180 Tablet 1 09/18/2023 Active Ondansetron HCl 4 MG Oral TabletIndications:Ma lignant neoplasm of upper-outer quadrant of left breast in female, estrogen receptor positive (HCC) Take 1 Tablet by mouth every 6 hours as needed for Nausea. 30 Tablet 3 09/18/2023 Active Abemaciclib 150 MG Oral Tablet (Verzenio)Indication s: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 breast in female, estrogen receptor positive (HCC) Take 1 Tablet by mouth in the morning and 1 Tablet before bedtime. 60 Tablet 5 09/18/2023 Active documented as of this encounter (statuses as of 10/16/2023) Active Problems Problem Noted Date Diagnosed Date [...] as of this encounter (statuses as of 10/16/2023) Resolved Problems Problem Noted Date Diagnosed Date [...] as of this encounter (statuses as of 10/16/2023) Immunizations Name Administration Dates Next Due COVID-19 mRNA, LNP-s, No Pre serve, 2-Dose Series ([employer]) 01/24/2021,06/29/2020,06/08/2020 COVID-19, LNP-s, No Preserve , Adam-sucrose, [...] as of this encounter Progress Notes * Jenny Otto, [facility] - 10/15/2023 10:30 AM EDT MEDICATION THERAPY MANAGEMENT ABEMACICLIB TREATMENT PROGRESS NOTE Kianna Raymundo [phone] Patient Phone Numbers Preferred Lab: [facility] Communication: Spoke to: Patient Treatment: Medication: Abemaciclib (Verzenio) Indication/Staging/Diagnosis Code: ER+/IN-/HER2- breast cancer / Stage IIB / C50.412 Dose: 150mg BID Administration: +/- food Start Date: 09/30/23 Primary Ironworker/Oncologist: Dr. 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 Pt to undergo IR biopsy to confirm hormone status Per TE 10/07/23, pt is not feeling well on abemaciclib Pt states she is feeling so much better since holding abemaciclib and will be "hard pressed" to resume medication if needed Changes to medication list since last visit? N/A Assessment and Plan: Na+ improving to WNL BUN declining to WNL Creatinine elevated but declining AST stable at 1.2 times ULN All other labs stable Per discussion with Dr. Rodriguez, continue to HOLD abemaciclib until biopsy results MTM to follow up in 2 weeks in anticipation of biopsy results Assessment of compliance: compliant Assessment of adverse effects attributed to drug therapy: N/A Dose adjustment needed based on lab or adverse drug reaction? Yes, HOLD Follow up: 2 weeks Jenny Otto, PharmD, BCOP Clinical Pharmacist, [facility] Oral Chemotherapy [facility] 10/16/2023, 9:47 AM Monitoring Parameters: Estimated CrCl Serum creatinine: 1.4 mg/dL (H) 10/14/23 1045 Estimated creatinine clearance: 30.5 mL/min (A) Hepatitis panel Latest Reference Range & Units 09/13/23 10:32 Hepatitis B Surface Antigen Negative Negative Hepatitis B Surface Antibody, Quantitative mIU/mL <3.5 HEPATITIS B SURFACE ANTIBODY Rpt Hepatitis B Surface Antibody, Interpretation NOT immune to Hepatitis B Virus Hepatitis B Surface Antibody, Qualitative Negative Hepatitis B Core Antibodies IgG and IgM Negative Negative test N/A - postmenopausal Suggested lab monitoring Suggested labs: CBC with differential and platelets (at baseline, every 2 weeks for the first 2 months, monthly for the next 2 months, then as clinically indicated); ALT, AST, and serum bilirubin (at baseline, every 2 weeks for the first 2 months, monthly for the next 2 months, then as clinically indicated); testing (prior to treatment in females of reproductivepotential). Treatment Parameters Per PI Pertinent labs: Latest Reference Range & Units 09/13/23 10:32 10/08/23 11:44 10/14/23 10:45 BUN 6 - 20 mg/dL 19 26 (H) 19 Creatinine 0.5 - 1.0 mg/dL 1.1 (H) 2.0 (H) 1.4 (H) Estimated Glomerular Filtration Rate >=60 mL/min 53 (L) 25 (L) 41 (L) Latest Reference Range & Units 09/13/23 10:32 10/08/23 11:44 10/14/23 10:45 Sodium 135 - 146 mmol/L 138 132 (L) 136 Latest Reference Range & Units 09/13/23 10:32 10/08/23 11:44 10/14/23 10:45 Albumin 3.8 - 5.0 g/dL 4.1 3.9 4.1 AST 10 - 35 U/L 41 (H) 43 (H) 44 (H) ALT 10 - 35 U/L 11 11 19 Alkaline Phosphatase 35 - 130 U/L 136 (H) 135 (H) 147 (H) Bilirubin, Total <=1.2 mg/dL 0.4 0.4 0.2 Time Spent on Encounter: 6 - 10 minutes Encounter Group: Oncology Encounter Interventions Item Category: Oral Chemotherapy Abemaciclib Problem/Rationale: Safety: Needs additional monitoring - Medication Requires monitoring Pharmacist Intervention(s): Clarification with Provider, Lab monitoring, and Medication held Magnitude of Intervention: Monitoring with no interventions (Level 0) documented in this encounter Plan of Treatment Upcoming Encounters Date Type Department Care Team (Late st Contact Info) Description 10/21/2023 9:00 AM EDT Hospital Encounter OR [facility], Operating Room, [facility] - 4th Floor [address] [address] [facility], In And Out Surgery [address] [address] 10/21/2023 9:00 AM EDT Appointment Radiology, [facility] [address] [address] 10/21/2023 9:00 AM EDT - 10/21/2023 10:00 AM EDT Surgery OR [facility], Operating Room, [facility] - 4th Floor [address] [address] [facility], In And Out Surgery 400 [facility] [place] [address] PRE / POST CARE 10/22/2023 12:15 PM EDT Immunization/Injecti on Hematology/Oncology Treatment, [place] 200 [facility] [place] [phone] Nurse, Med 200 [facility] [place] [address] 10/29/2023 9:45 AM EDT Pharmacy Pharmacy Hematology Oncology [facility] [address] [place] [address] [facility] Hem/Onc [address] [place] [address] 11/12/2023 12:15 PM EDT Hem/Onc Treatment Hematology/Oncology Treatment, [place] 200 [facility] [place] [phone] Leatha, Chair 1 Hem Onc [facility] 200 [facility] [place] [address] 01/07/2024 2:45 PM EDT [facility] [place] [phone] Morales Rodriguez MD [address] [place] [address] [place] [address] 03/16/2024 1:00 PM EST Office Visit Family Medicine [address] [place] [phone] Mahogany Valentin MD [address] [place] [address] [place] [address] 03/20/2024 1:30 PM EST Imaging Radiology [address] [place] [address] 04/13/2024 1:00 PM EST Nurse Only Ancillary [address] [place] [address] Roz, Nurse Annual Wellness [address] [place] [address] [place] [address] Scheduled Procedures Name Priority Associated Diagnoses Date/Ti me PRE / POST CARE 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 breast in female, estrogen receptor positive (HCC) Metastasis to bone (HCC) Metastasis to liver (HCC) 10/21/2023 9:00 AM EDT Health Maintenance Due Date Last Done Comments DXA Scan 01/17/2023 01/18/2020, 05/04/2016 COVID-19 Vaccine ( season) 2023 01/16/2023, 01/09/2022, 09/05/2021, Additional history exists Depression Screening 04/11/2024 04/11/2023 DTaP,Tdap,and Td Vaccines (2 - Td or Tdap) 08/04/2026 08/04/2016 Fecal Occult Blood Test Discontinued 01/03/2009 Colonoscopy Discontinued 05/01/2013 Colorectal Cancer Screening Discontinued Pneumococcal Vaccine: 65+ Years Completed 02/16/2015, 01/27/2013 Zoster Vaccines Completed 11/22/2019, 01/22, 02/22/2014 Influenza Vaccine (FLU shot) Completed 12/26/2022, 12/26/2022, 12/26/2021, Additional history exists Cologuard Discontinued GARDASIL-HPV IMMUNIZATION SERIES Aged Out No longer eligible based on patient's age to complete this topic Hepatitis B Aged Out No longer eligi ble based on patient's age to complete this topic MENINGOCOCCAL (MENACTRA/MENVEO) Aged Out No longer eligible based on patient's age to complete this topic Sigmoidoscopy Discontinued documented as of this encounter Medical Devices Implanted Type Area Relief Cook Device Identifier Shelf Expiration Date Model / Serial / Lot Port Power Mri W/8fr Cath - [id number] Implanted:Qty : 1 on 05/25/2015 by Florence Mayfield MD at OR [facility] [address] Left: Subclavian CR BARD : PERIPHERAL VASCULAR 08/17/2016 [id number] / / [id number] documented as of this encounter Visit Diagnoses Diagnosis 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 breast in female, estrogen receptor positive (HCC)- Primary 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 breast in female, estrogen receptor positive (HCC) Metastasis to bone (HCC) Secondary malignant neoplasm of bone and bone marrow Metastasis to liver (HCC) Secondary malignant neoplasm of liver documented in this encounter Care Teams Metal Patternmaker Relationship Specialty Start Date End Date Mahogany Valentin MD [address] [place] [address] [place] [address] PCP - General Family Medicine 01/23/17 documented as of this encounter
--- OUTSIDE RECORDS SUMMARY | 2023-12-20 21:06 | External Medical Summary | Summary of Care ---
Demographics Address [address] [place] [address] Home Phone Email Address Preferred Language Arabic Marital Status Unknown Congregation Affiliation Unknown Race White Ethnic Group Not or Lati no Author Name Unknown Organization [facility] Address [address] [facility] [address] Phone [phone] Care Team Providers Care Conservation Coordinator Name Role Phone Mahogany Vlaentin MD Primary Care Provide r Reason for Visit * Reason Comments Outpatient Testing Encounter Details Date Type Department Care Team (Late st Contact Info) Description 10/22/2023 11:40 AM EDT Laboratory Laboratory Scenery [facility] [address] [place] [phone] [place], Lab Scenery [address] [place] [address] 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 breast in female, estrogen receptor positive (HCC); Metastasis to bone (HCC) Allergies No known active allergiesdocumented as of this encounter (statuses as of 10/22/2023) Medications Medication Sig Dispensed Refills Start Date [...] 09/18/2023 Active Ondansetron HCl 4 MG Oral TabletIndications:Trixie gnant neoplasm of upper-outer quadrant of left breast in female, estrogen receptor positive (HCC) Take 1 Tablet by mouth every 6 hours as needed for Nausea. 30 Tablet 3 09/18/2023 Active Abemaciclib 150 MG Oral Tablet (Verzenio)Indications: 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 breast in female, estrogen receptor positive (HCC) Take 1 Tablet by mouth in the morning and 1 Tablet before bedtime. 60 Tablet 5 09/18/2023 Active documented as of this encounter (statuses as of 10/22/2023) Active Problems Problem Noted Date Diagnosed Date [...] as of this encounter (statuses as of 10/22/2023) Resolved Problems Problem Noted Date Diagnosed Date [...] as of this encounter (statuses as of 10/22/2023) Immunizations Name Administration Dates Next Due COVID-19 mRNA, LNP-s, No Pre serve, 2-Dose Series ([employer]) 01/24/2021,06/29/2020,06/08/2020 COVID-19, LNP-s, No Preserve , Adam-sucrose, Ages 12+ ([employer]) 09/05/2021 COVID-19, MRNA-LNP, 23-24, P F, 30 MCG/0.3 mL, 12 YRS AND ABOVE, IM ([employer]) 01/16/2023 Covid-19, Mrna, Lnp-s, Pf, B ivalent, 30 Mcg, IM, 12 yrs and above ([employer]) 01/09/2022 PPD 02/25/2003 Pneumococcal Conjugate Vacc, 13 Valent (Prevnar) 02/16/2015 [...] Care Team (Late st Contact Info) Description 10/22/2023 12:15 PM EDT Immunization/Injecti on Hematology/Oncology Treatment, [address] [phone] Nurse, Med [address] [place] [address] Arrived 10/29/2023 9:45 AM EDT Pharmacy Pharmacy Hematology Oncology [facility] [place] [address] [place] [address] [facility]c [address] [place] [address] 11/19/2023 1:15 PM EDT Hem/Onc Treatment Hematology/Oncology Treatment, [address] [place] [phone] Leatha, Chair 1 Hem Onc [address] [place] [address] 01/07/2024 2:45 PM EDT Office Visit Hematology/Oncology [facility] [place] 200 [facility] [place] [phone] Morales Rodriguez MD 200 [facility] [place] [address] 03/16/2024 1:00 PM EST Office Visit Family Medicine [address] [place] [phone] Mahogany Valentin MD [address] [place] [address] [place] [address] 03/20/2024 1:30 PM EST Imaging Radiology [address] [place] [address] 04/13/2024 1:00 PM EST Nurse Only Ancillary [address] [place] [address] [place], Nurse [address] [place] [address] Pending Results Name Type Priority Associated Diagnoses Date /Time COMPREHENSIVE METABOLIC PANEL Lab STAT 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 breast in female, estrogen receptor positive (HCC) 10/22/2023 12:08 PM EDT PHOSPHORUS Lab STAT Metastasis to bone (HCC) 10/22/2023 12:08 PM EDT Scheduled Orders Name Type Priority Associated Diagnoses Orde r Schedule CBC Lab STAT 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 breast in female, estrogen receptor positive (HCC) Ordered: 10/22/2023 DIFFERENTIAL, AUTOMATED Lab STAT 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 breast in female, estrogen receptor positive (HCC) Ordered: 10/22/2023 Health Maintenance Due Date Last Done Comments [...] Vaccines Completed 11/22/2019, 01/22, 02/22/2014 Cologuard Discontinued GARDASIL-HPV IMMUNIZATION SERIES Aged Out No longer eligible based on patient's age to complete this topic Hepatitis B Aged Out No longer eligi ble based on patient's age to complete this topic MENINGOCOCCAL (MENACTRA/MENVEO) Aged Out No longer eligible based on patient's age to complete this topic Sigmoidoscopy Discontinued documented as of this encounter Medical Devices Implanted Type Area Architectural Representative Device Identifier Shelf Expiration Date Model / Serial / Lot Port Power Mri W/8fr Cath - [id number] Implanted:Qty : 1 on 05/25/2015 by Florence Mayfield MD at [facility] Left: Subclavian CR BARD : PERIPHERAL VASCULAR 08/17/2016 [id number] / / [id number] documented as of this encounter Visit Diagnoses Diagnosis 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 breast in female, estrogen receptor positive (HCC) Metastasis to bone (HCC) Secondary malignant neoplasm of bone and bone marrow documented in this encounter Care Teams Conservation Coordinator Relationship Specialty Start Date End Date Mahogany Valentin MD [address] [place] [address] [place] [address] PCP - General Family Medicine 01/23/17 documented as of this encounter
--- OUTSIDE RECORDS SUMMARY | 2023-12-20 21:06 | External Medical Summary | Summary of Care ---
Demographics Address [address] [place] [address] Home Phone Email Address Preferred Language Albanian Marital Status Unknown Yazidi Affiliation Unknown Race White Ethnic Group Not or Lati no Author Name Unknown Organization [facility] Address [address] [facility] [place] [address] Phone [phone] Care Team Providers Care Veneer Matcher Name Role Phone Mahogany Valentin MD Primary [...] to liver (HCC) Peritoneal carcinomatosis (HCC) Procedures MA INJECTION, FULVESTRANT Morales Rodriguez MD [address] [place] [address] Anc Hem/Onc [address] [phone] Referral ID Status Reason Start Date Expiration Date V isits Requested Visits Authorized [id number] Authorized 09/13/2023 04/21/[phone] Encounter Details Date Type Department Care Team (Latest Contact Info) Description 10/22/2023 12:15 PM EDT Immunization/ Injection Hematology/Oncology Treatment, [address] [phone] Nurse, Med [address] [place] [address] [place] [address] 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 [...] mRNA, LNP-s, No Pre serve, 2-Dose Series ([employer]) 01/24/2021,06/29/2020,06/08/2020 COVID-19, LNP-s, No Preserve , Adam-sucrose, [...] today was high. This can lead to visual and stock associate health problems. We recommend that you have [...] Care Team (Late st Contact Info) Description 10/29/2023 9:45 AM EDT Pharmacy Pharmacy Hematology Oncology [address] [address] [facility] Hem/Onc [address] [place] [facility] [place] [address] 11/19/2023 1:15 PM EDT Hem/Onc Treatment Hematology/Oncology Treatment, [place] 200 [facility] [place] [address] Leatha, Chair 1 Hem Onc [facility] 200 [facility] [place] [address] 01/07/2024 2:45 PM EDT Office Visit Hematology/Oncology [facility] 200 [facility] [place] [phone] Morales Rodriguez MD 200 [facility] [place] [address] 03/16/2024 1:00 PM EST Office Visit Family Medicine [address] [place] [phone] Mahogany Valentin MD [address] [place] [address] [place] [address] 03/20/2024 1:30 PM EST Imaging Radiology [address] [place] [address] 04/13/2024 1:00 PM EST Nurse Only Ancillary [address] [place] [address] [place], Nurse Annual Wellness [address] [place] [address] [place] [address] Health Maintenance Due Date Last Done Comments [...] this encounter Medical Devices Implanted Type Area Placement Officer Device Identifier Shelf Expiration Date Model / Serial / Lot Port Power Mri W/8fr Cath - [id number] Implanted:Qty : 1 on 05/25/2015 by Florence Mayfield MD at OR 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 to liver (HCC) Secondary malignant neoplasm of liver Peritoneal carcinomatosis (HCC) Malignant neoplasm of peritoneum, unspecified documented in this encounter Administered Medications Active Administered Medications - up to 3 most recent administrations Medication Order MAR Action Action Date Dose Rate Site diphenhydrAMINE (Benadryl) inj 50 mg 50 mg, IV Push, ONCE PRN Other, Hypersensitivity Reaction, Starting on Sat10/22/23 at 1256, Until Sat10/23/23 at 1255, For 24 hours EPINEPHrine 1 MG/ML inj 0.3 mg 0.3 mg, Intramuscular, ONCE PRN Other, Hypersensitivity Reaction or Anaphylaxis, Starting on Sat10/22/23 at 1256, Until Sat10/23/23 at 1255, For 24 hours hEParin 100 UNIT/ML Lock Flush inj 500 Units 500 Units (5 mL), IV Lock, PRN Other, IV Flush, Starting on Sat10/22/23 at 1256, Until Sat10/23/23 at 1255, For 24 hours, Do not flush if lock, PICC, or central line not in place; IV infusing or unable to flush. Hydrocortisone Sod Suc (PF) (Solu-Cortef) inj 100 mg 100 mg, IV Push, ONCE PRN Other, Hypersensitivity Reaction, Starting on Sat10/22/23 at 1256, Until Sat10/23/23 at 1255, For 24 hours NSS infusion 500 mL, Intravenous, at 50 mL/hr, CONTINUOUS, Starting on Sat10/22/23 at 1400, Until Sat10/22/23 at 2359 Start Infusion 10/22/2023 1:18 PM EDT 500 mL 50 mL/hr oxygen GAS Inhalation, OXYGEN, First dose on Sat10/22/23 at 1600, Until Discontinued, Device/Managed by: Low [...] Push, PRN Other, IV Flush, Starting on Sat10/22/23 at 1256, Until Sat10/23/23 at 1255, For 24 hours, Do not flush if [...] 12:24 PM EDT 500 mg Dorsogluteal Left Zoledronic Acid (Zometa) 3 mg in NSS 100 mL ivpb 3 mg, IV Piggyback, ONCE, 1 dose, On Sat10/22/23 at 1345, Administer over 15 Minutes Start Infusion 10/22/2023 1:36 PM EDT 3 mg 435 mL/hr documented in this encounter Care Teams Veneer Matcher Relationship Specialty Start Date End Date Mahogany Valentin MD [address] [place] [address] [place] [phone] PCP - General Family Medicine 01/23/17 documented as of this encounter
--- OUTSIDE RECORDS SUMMARY | 2023-12-20 21:06 | External Medical Summary ---
Demographics Address [address] [place] [address] Phone Unavailable Preferred Language Unknown Marital Status Unknown Presybeterian Affiliation Unknown Race Unknown Ethnic Group Unknown Author Name Unknown Address Unknown Organization K01:[facility] [address] [place] [address] Laboratory Report Ordering Provider Test Date Status MONIKA MARTINEZ 10/29/2023 12:26:29 Final Observation Date Value Abnormality Reference (Units ) Status COMMENT 10/29/2023 12:26:29 Rcvd request,slides to HY 10/29/23 Final COMMENT 10/29/2023 12:26:29 HY ordered 10/30/23 Final COMMENT 10/29/2023 12:26:29 Testing to be performed in house Final Performing Location [facility] [place] [facility] [address] [place] [address]
--- OUTSIDE RECORDS SUMMARY | 2023-12-20 21:06 | External Medical Summary | Summary of Care ---
Demographics Address [address] [place] [address] Home Phone Email Address Preferred Language Wolof Marital Status Unknown Yarsani Affiliation Unknown Race White Ethnic Group Not or Lati no Author Name Unknown Organization [facility] Address [address] [facility] [place] [address] Phone [phone] Care Team Providers Care Academy Director Name Role Phone Mahogany Valentin MD Primary Care Provide r Reason for Visit * Reason Onset Date Comments Test Results Lab 10/29/2023 Encounter Details Date Type Department Care Team (Late st Contact Info) Description 10/29/2023 Telephone Hematology/Oncology [facility] [address] [place] [phone] Morales Rodriguez MD [address] [place] [address] Test Results Lab Allergies No known active allergiesdocumented as of this encounter (statuses as of 10/29/2023) Medications Medication Sig Dispensed Refills Start Date [...] as of this encounter (statuses as of 10/29/2023) Active Problems Problem Noted Date Diagnosed Date [...] as of this encounter (statuses as of 10/29/2023) Resolved Problems Problem Noted Date Diagnosed Date [...] as of this encounter (statuses as of 10/29/2023) Immunizations Name Administration Dates Next Due COVID-19 mRNA, LNP-s, No Pre serve, 2-Dose Series ([place]) 01/24/2021,06/29/2020,06/08/2020 COVID-19, LNP-s, No Preserve , Adam-sucrose, Ages 12+ (etaskr) 09/05/2021 COVID-19, MRNA-LNP, 23-24, P F, 30 MCG/0.3 mL, 12 YRS AND ABOVE, IM (PFIZER-Comirnat) 01/16/2023 Covid-19, Mrna, Lnp-s, Pf, B ivalent, 30 Mcg, IM, 12 yrs and above (etaskr) 01/09/2022 PPD 02/25/2003 Pneumococcal Conjugate Vacc, 13 [...] as of this encounter Miscellaneous Notes * Addendum Note - Buddy Rodriguez RN - 10/29/2023 12:26 PM EDTAddended by: BUDDY RODRIGUEZ on: 10/29/2023 12:26 PM Modules accepted: Orders * Telephone Encounter - Buddy Rodriguez RN - 10/29/2023 12:22 PM EDT Orders placed as requested. SM sent to Pathology. * Telephone Encounter - Buddy Rodriguez RN - 10/29/2023 11:28 AM EDT ----- Message from Morales Rodriguez MD sent at 10/25/2023 6:26 AM EDT ----- Biopsy from the liver -> Metastatic carcinoma compatible with breast primary (10/21/2023). - ER positive. Could you please ask pathologist for ER, [place], her2/souleymane Checkup as well as NGS checkup. Currently she is on Faslodex, she declined for further treatment with Verzenio. documented in this encounter Plan of Treatment Upcoming Encounters Date Type Department Care Team (Late st Contact Info) Description 11/19/2023 1:15 PM EDT Hem/Onc Treatment Hematology/Oncology Treatment, [place] [address] [facility], [place] [address] Leatha, Chair 1 Hem Onc [facility] [address] [facility] [place] [address] 01/07/2024 2:45 PM EDT Office Visit Hematology/Oncology [facility] [place] [address] [facility] [place] [phone] Morales Rodriguez MD [address] [facility] [place] [address] 03/16/2024 1:00 PM EST Office Visit Family Medicine [address] [place] [phone] Mahogany Valentin MD [address] [place] [address] [place] [address] 03/20/2024 1:30 PM EST Imaging Radiology [address] [place] [address] 04/13/2024 1:00 PM EST Nurse Only Ancillary [address] [place] [address] [place], Nurse Annual [address] [place] [address] Pending Results Name Type Priority Associated Diagnoses Date /Time ANATOMIC PATHOLOGY (BM/SURGICAL/CYTOLOGY) ADD ON REQUEST Lab Routine 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 breast in female, estrogen receptor positive (HCC) Metastasis to liver (HCC) 10/29/2023 12:26 PM EDT Health Maintenance Due Date Last Done [...] this encounter Medical Devices Implanted Type Area Char Filter Operator Helper Device Identifier Shelf Expiration Date Model / Serial / Lot Port Power Mri W/8fr Cath - [id number] Implanted:Qty : 1 on 05/25/2015 by Florence Mayfield MD at OR [facility] Left: Subclavian CR BARD : PERIPHERAL VASCULAR 08/17/2016 [id number] / / [id number] documented as of this encounter Visit Diagnoses Diagnosis 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 breast in female, estrogen receptor positive (HCC)- Primary Metastasis to liver (HCC) Secondary malignant neoplasm of liver documented in this encounter Care Teams Academy Director Relationship Specialty Start Date End Date Mahogany Valentin MD [address] [place] [address] [place] [address] PCP - General Family Medicine 01/23/17 documented as of this encounter
--- OUTSIDE RECORDS SUMMARY | 2023-12-20 21:06 | External Medical Summary | Summary of Care ---
Demographics Address [address] [place] [address] Home Phone Email Address Preferred Language Occitan Marital Status Unknown Yazdanism Affiliation Unknown Race White Ethnic Group Not or Lati no Author Name Unknown Organization [facility] Address [address] [place] [address] Phone [phone] Care Team Providers Care Sales Service Route Manager Name Role Phone Mahogany Valentin MD Primary Care Provide r Reason for Visit * Reason Comments Medication Administration Faslodex Nurse Documentation Hold Zometa * Episode Based Medications (Routine) - Authorized Specialty Diagnoses / Procedures Referred By Contac t Referred To Contact Diagnoses 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 breast in female, estrogen receptor positive (HCC) Metastasis to bone (HCC) Metastasis to liver (HCC) Peritoneal carcinomatosis (HCC) Procedures MI INJECTION, FULVESTRANT Morales Rodriguez MD [address] [place] [id number] Anc Hem/Onc [address] [address] Referral ID Status Reason Start Date Expiration Date V isits Requested Visits Authorized [id number] Authorized 09/13/2023 04/21/[phone] Encounter Details Date Type Department Care Team (Latest Contact Info) Description 10/08/2023 12:00 PM EDT Immunization/ Injection Hematology/Oncology Treatment, [address] [phone] [address] [place] [address] [place] [address] Metastasis to bone (HCC)*; 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 breast in female, estrogen receptor positive (HCC); Metastasis to liver (HCC); Peritoneal carcinomatosis (HCC) Allergies No known active allergiesdocumented as of this encounter (statuses as of 10/30/2023) Medications Medication Sig Dispensed Refills Start Date [...] as of this encounter (statuses as of 10/30/2023) Active Problems Problem Noted Date Diagnosed Date [...] as of this encounter (statuses as of 10/30/2023) Resolved Problems Problem Noted Date Diagnosed Date [...] as of this encounter (statuses as of 10/30/2023) Immunizations Name Administration Dates Next Due COVID-19 mRNA, LNP-s, No Pre serve, 2-Dose Series ([place]) 01/24/2021,06/29/2020,06/08/2020 COVID-19, LNP-s, No Preserve , Adam-sucrose, Ages 12+ ([facility]) 09/05/2021 COVID-19, MRNA-LNP, 23-24, P F, 30 MCG/0.3 mL, 12 YRS AND ABOVE, IM ([facility]) 01/16/2023 Covid-19, Mrna, Lnp-s, Pf, B ivalent, 30 Mcg, IM, 12 yrs and above ([place]) 01/09/2022 Pneumococcal Conjugate Vacc, 13 Valent (Prevnar) [...] Sign Reading Time Taken Comments Blood Pressure 113/65 10/08/2023 12:20 PM EDT Pulse 102 10/08/2023 12:20 PM EDT Temperature 36.4 C (97.6 F) 10/08/2023 12:20 PM E DT Respiratory Rate 18 10/08/2023 12:20 PM EDT Oxygen Saturation 92% 10/08/2023 12:20 PM EDT Inhaled Oxygen Concentration - - Weight - - Height - - Body Mass Index - - documented in this encounter Nursing Notes * Eri John LPN - 10/08/2023 2:14 PM EDT Pt arrived at 1200 for Faslodex injection and Zometa infusion. Faslodex administered in B/L dorsogluteal. Pt tolerated well. Held Zometa due to [place] 8.0. Pts kidney function is elevated. Pt reports she has been vomiting since Saturday. Has trouble keeping food down and feels it is due to her Verzenio. Pt reports she has lost 10lbs recently. Denies diarrhea. Does not feel like she needs hydration and will increase fluids once she gets home. Spoke with MD. Going to hold Verzenio and repeat labs in one week. Please see notes. Pt is to return in 4 weeks for Faslodex and Zometa. Pt is going to have a repeat CMP drawn next week to recheck kidney function. Pt discharged in stable condition. documented in this encounter Plan of Treatment Upcoming Encounters Date Type Department Care Team (Late st Contact Info) Description 11/19/2023 1:15 PM EDT Hem/Onc Treatment Hematology/Oncology Treatment, [place] [address] [facility] [place] [address] Leatha, Chair 1 Hem Onc [address] [place] [address] 01/07/2024 2:45 PM EDT Office Visit Hematology/Oncology [facility], [address] [place] [phone] Morales Rodriguez MD [address] [place] [address] 03/16/2024 1:00 PM EST Office Visit Family Medicine [address] [place] [phone] Mahogany Valentin MD [address] [place] [address] [place] [address] 03/20/2024 1:30 PM EST Imaging Radiology [address] [place] [address] 04/13/2024 1:00 PM EST Nurse Only Ancillary [address] [place] [address] [place], Nurse [address] [place] [address] Scheduled Orders Name Type Priority Associated Diagnoses Orde r Schedule PHOSPHORUS Lab STAT Metastasis to bone (HCC) Every Month for 12 Occurrences starting 10/08/2023 until 10/07/2024, 2 completed Health Maintenance Due Date Last Done Comments [...] this encounter Medical Devices Implanted Type Area Sas Bi Developer Device Identifier Shelf Expiration Date Model / Serial / Lot Port Power Mri W/8fr Cath - [id number] Implanted:Qty : 1 on 05/25/2015 by Florence Mayfield MD at OR [facility] Left: Subclavian CR BARD : PERIPHERAL VASCULAR 08/17/2016 [id number] / / [id number] documented as of this encounter Results * PHOSPHORUS (10/22/2023 12:08 PM EDT) Phosphorus 3.1 2.5 - 4.8 mg/dL 10/22/2023 12:46 PM EDT [place] [address] Blood Venous blood specimen / Unknown Venipuncture / Unknown 10/22/2023 12:08 PM EDT 10/22/2023 12:08 PM EDT Morales Rodriguez MD LAB BLOOD ORDERABLES Performing Organization Address City/[facility] Co de Phone Number [facility] [address] [place] [address] * PHOSPHORUS (10/08/2023 11:44 AM EDT) Phosphorus 2.8 2.5 - 4.8 mg/dL 10/08/2023 12:18 PM EDT [facility] [address]602 Blood Venous blood specimen / Unknown Venipuncture / Unknown 10/08/2023 11:44 AM EDT 10/08/2023 11:44 AM EDT Morales Rodriguez MD LAB BLOOD ORDERABLES Performing Organization Address City/State/[facility] Co de Phone Number [facility] [address] [place] [address] documented in this encounter Visit Diagnoses Diagnosis Metastasis to bone (HCC)- Primary Secondary malignant neoplasm of bone and bone [...] 500 mg 500 mg, Intramuscular, ONCE, On Sat10/08/23 at 1300, For 1 dose Given 10/08/2023 11:57 AM EDT 500 mg Dorsogluteal Left documented in this encounter Care Teams Sales Service Route Manager Relationship Specialty Start Date End Date Mahogany Valentin MD [address] [place] [address] [place] [address] PCP - General Family Medicine 01/23/17 documented as of this encounter
--- OUTSIDE RECORDS SUMMARY | 2023-12-20 21:06 | External Medical Summary | Summary of Care ---
Demographics Address [address] [place] [address] Home Phone Email Address Preferred Language Upper Sorbian Marital Status Unknown Restorationism Affiliation Unknown Race White Ethnic Group Not or Lati no Author Name Unknown Organization [facility] Address [address] [place] [address] Phone [phone] Care Team Providers Care Local Operator Name Role Phone Mahogany Valentin MD Primary Care Provide r Reason for Visit * Reason Comments Medication Management Encounter Details Date Type Department Care Team (Late st Contact Info) Description 10/29/2023 9:45 AM EDT Pharmacy Pharmacy Hematology Oncology [facility] [address] [place] [address] [facility], [facility] Hem/Onc [address] [place] [address] 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 breast in female, estrogen receptor positive (HCC)* Allergies No known active allergiesdocumented as of this encounter (statuses as of 10/28/2023) Medications Medication Sig Dispensed Refills Start Date [...] as of this encounter (statuses as of 10/28/2023) Active Problems Problem Noted Date Diagnosed Date [...] as of this encounter (statuses as of 10/28/2023) Resolved Problems Problem Noted Date Diagnosed Date [...] as of this encounter (statuses as of 10/28/2023) Immunizations Name Administration Dates Next Due COVID-19 mRNA, LNP-s, No Pre serve, 2-Dose Series ([employer]) 01/24/2021,06/29/2020,06/08/2020 COVID-19, LNP-s, No Preserve , Adam-sucrose, [...] this encounter Progress Notes * Jenny Otto, [facility] - 10/28/2023 8:37 AM EDT MEDICATION THERAPY MANAGEMENT ABEMACICLIB TREATMENT PROGRESS NOTE Kianna Raymundo [id number] Patient Phone Numbers Preferred Lab: [facility]: [facility] Communication: Chart review Treatment: Medication: Abemaciclib (Verzenio) Indication/Staging/Diagnosis Code: ER+/MT-/HER2- breast cancer / Stage IIB / C50.412 Dose: 150mg BID Administration: +/- food Start Date: 09/30/23 Primary Parts Counter Associate/Oncologist: Dr. Otilia Rodriguez Supportive Care Meds: Fulvestrant [...] pt is not feeling well on abemaciclib Changes to medication list since last visit? N/A Assessment and Plan: Per biopsy result note, pt is ER+; however, pt does not wish to continue abemaciclib treatment due to poor tolerability MTM to discharge pt from clinic at this time Jenny Otto, PharmD, BCOP Clinical Pharmacist, [facility] Oral Chemotherapy [facility] 10/28/2023, 8:45 AM Monitoring Parameters: Estimated CrCl Serum creatinine: 1.1 mg/dL (H) 10/22/23 1208 Estimated creatinine clearance: 38.1 mL/min (A) Hepatitis panel Latest Reference Range [...] reproductivepotential). Treatment Parameters Per PI Pertinent labs: N/A Time Spent on Encounter: 6 - 10 minutes Encounter Group: Oncology Encounter Interventions Item Category: Oral Chemotherapy Abemaciclib Problem/Rationale: Safety: Adverse medication event - Undesirable effect Pharmacist Intervention(s): Medication discontinued and Medication reconciliation Magnitude of Intervention: Modification of medications for symtomatic patients (Level 3) documented in this encounter Plan of Treatment Upcoming Encounters Date Type Department Care Team (Late st Contact Info) Description 11/19/2023 1:15 PM EDT Hem/Onc Treatment Hematology/Oncology Treatment, [place] 200 [facility] [place] [address] Leatha, Chair 1 Hem Onc [address] [place] [address] 01/07/2024 2:45 PM EDT Office Visit Hematology/Oncology [facility] [address] [place] [phone] Morales Rodriguez MD 200 [facility] [place] [address] 03/16/2024 1:00 PM EST Office Visit Family Medicine [address] [place] [phone] Mahogany Valentin MD [address] [place] [address] [place] [address] 03/20/2024 1:30 PM EST Imaging Radiology [address] [place] [address] 04/13/2024 1:00 PM EST Nurse Only Ancillary [address] [place] [address] [place], Nurse Annual [address] [place] [address] Health Maintenance Due Date Last Done Comments DXA Scan 01/17/2023 01/18/2020, 05/04/2016 COVID-19 Vaccine (2022-24 season) 2023 01/16/2023, 01/09/2022, 09/05/2021, Additional history [...] this encounter Medical Devices Implanted Type Area Flag Decorator Device Identifier Shelf Expiration Date Model / Serial / Lot Port Power Mri W/8fr Cath - [id number] Implanted:Qty : 1 on 05/25/2015 by Florence Mayfield MD at [facility] Left: Subclavian CR BARD : PERIPHERAL VASCULAR 08/17/2016 [id number] / / [id number] documented as of this encounter Visit Diagnoses Diagnosis 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 breast in female, estrogen receptor positive (HCC)- Primary documented in this encounter Care Teams Local Operator Relationship Specialty Start Date End Date Mahogany Valentin MD [address] [place] [address] [place] [address] PCP - General Family Medicine 01/23/17 documented as of this encounter
--- OUTSIDE RECORDS SUMMARY | 2023-12-20 21:06 | External Medical Summary | Summary of Care ---
Demographics Address [address] [place] [address] Home Phone Email Address Preferred Language Croatian Marital Status Unknown Anglican Affiliation Unknown Race White Ethnic Group Not or Lati no Author Name Unknown Organization [facility] Address [address] [facility] [place] [address] Phone [phone] Care Team Providers Care Manager Transport Name Role Phone Mahogany Valentin MD Primary Care Provide r Reason for Visit * Reason Onset Date Comments Patient Assistance Program 09/18/2023 Emiliano wilder Encounter Details Date Type Department Care Team (Late st Contact Info) Description 09/18/2023 Telephone Hematology/Oncology [facility] [place] 200 [facility] [place] [phone] Morales Rodriguez MD [facility] [address] Patient Assistance Program (Yajaira ) Allergies No known active allergiesdocumented as of [...] the morning. 30 Packet 3 4 Active Apixaban 5 MG Oral Tablet (Eliquis) Take 1 Tablet by mouth in the morning and 1 Tablet before bedtime. 09/18/19 24 Discontinued(Ref ill) Ondansetron HCl 4 MG Oral TabletIndications:M alignant [...] mRNA, LNP-s, No Pre serve, 2-Dose Series ([place]) 01/24/2021,06/29/2020,06/08/2020 COVID-19, LNP-s, No Preserve , Adam-sucrose, Ages 12+ ([employer]) 09/05/2021 COVID-19, MRNA-LNP, 23-24, P F, 30 MCG/0.3 mL, 12 YRS AND ABOVE, IM ([employer]-Comirnat) 01/16/2023 Covid-19, Mrna, Lnp-s, Pf, B ivalent, 30 Mcg, IM, 12 yrs and above ([employer]) 01/09/2022 PPD 02/25/2003 Pneumococcal Conjugate Vacc, 13 [...] encounter Miscellaneous Notes * Telephone Encounter - Yajaira Mann OSA - 10/30/2023 3:29 PM EDT Patient Assistance Name of Medication: Abemaciclib 150 MG Oral Tablet (Verzenio) Was patient spoken to: : NO Type of assistance: PACE/PACENET ID: [id number] Applications mailed: : YES Follow up: N/A Thank you, Yajaira Mann Medication Research Chemical Engineer III 10/30/2023, 3:29 PM * Telephone Encounter - Yajaira Mann OSA - 09/19/2023 10:18 AM EDT Patient Assistance Name of Medication: Abemaciclib 150 MG Oral Tablet (Verzenio) Was patient spoken to: : YES Type of assistance: Applied for PACE over computer. She may be eligible. Also sent applications forpharmacy nanette/media relations coordinator. Sounds like she will be eligible for pharmacy nanette. Applications mailed: : YES Follow up: 09/25/2023 Yajaira Chamberlain Medication Research Chemical Engineer 09/19/2023, 10:18 AM * Telephone Encounter - Yajaira Mann OSA - 09/18/2023 3:03 PM EDT Patient Assistance Name of Medication: Abemaciclib 150 MG Oral Tablet (Verzenio) Was patient spoken to: : NO, left message. Type of assistance: Will screen for Pharmacy Nanette/PACE/Tray Drier Applications mailed: : YES Follow up: 09/25/2023 Thank Yajaira masters Medication Research Chemical Engineer 09/18/2023, 3:03 PM * Telephone Encounter - Mary Marin CPhT - 09/18/2023 9:55 AM EDT [facility] Patient Assistance Request: Medication name: Verzenio Insurance? medicare d Co-pay amount: [phone] Action needed: new funding inquiry Target ship date (if applicable): new start IF HEM/ONC: Confirm this encounter is routed to [id number]: Yes All other department requests should be flagged in referral. Confirm encounter department selected is for prescribing physician: Yes If URGENT: Send TEAMS message to appropriate winding department supervisor (see "Patient Assistance Guide" - ROUTING POOLS:[facility] on shared drive): [] Urgent message sent to: Thank Mary masters CPhT [facility] 09/18/2023,9:55 AM documented in this encounter Plan of Treatment Upcoming Encounters Date Type Department Care Team (Late st Contact Info) Description 11/19/2023 1:15 PM EDT Hem/Onc Treatment Hematology/Oncology Treatment, [place] 200 [facility] [place] [phone] Leatha, Chair 1 Hem Onc [facility] [address] [facility] [place] [address] 01/07/2024 2:45 PM EDT Office [facility] [address] [facility] [place] [phone] Morales Rodriguez MD 200 [facility] [place] [address] 03/16/2024 1:00 PM EST Office Visit Family Medicine [address] [place] [phone] Mahogany Valentin MD [address] [place] [address] [place] [address] 03/20/2024 1:30 PM EST Imaging Radiology [address] [place] [address] 04/13/2024 1:00 PM EST Nurse Only Ancillary [address] [place] [address] Movveronicaey, Nurse Annual [address] [place] [address] Health Maintenance Due Date Last Done Comments [...] this encounter Medical Devices Implanted Type Area Tray Drier Device Identifier Shelf Expiration Date Model / Serial / Lot Port Power Mri W/8fr Cath - [id number] Implanted:Qty : 1 on 05/25/2015 by Florence Mayfield MD at OR [facility] Left: Subclavian CR BARD : PERIPHERAL VASCULAR 08/17/2016 [id number] / / [id number] documented as of this encounter Care Teams Manager Transport Relationship Specialty Start Date End Date Mahogany Valentin MD [address] [place] [address] [place] [address] PCP - General Family Medicine 01/23/17 documented as of this encounter
--- OUTSIDE RECORDS SUMMARY | 2023-12-20 21:06 | External Medical Summary ---
Demographics Address [address] [facility] [place] [address] Phone Unavailable Preferred Language Unknown Marital Status Unknown Gnosticism Affiliation Unknown Race Unknown Ethnic Group Unknown Author Name Unknown Address Unknown Organization K09:[facility] [place] [address] Laboratory Report Ordering Provider Test Date Status MICHELLEMONIKA 10/22/2023 12:08:39 Final Observation Date Value Abnormality Reference (Units ) Status Phosphate 10/22/2023 12:08:39 3.1 2.5-4.8 (m g/dL) Final Performing Location [facility] [place] [address]
--- OUTSIDE RECORDS SUMMARY | 2023-12-20 21:06 | External Medical Summary ---
Demographics Address [address] [facility] [address] Phone Unavailable Preferred Language Unknown Marital Status Unknown Jainism Affiliation Unknown Race Unknown Ethnic Group Unknown Author Name Unknown Address Unknown Organization K01[facility] [place] [facility] [address] [place] [address] Laboratory Report Ordering Provider Test Date Status MARY PATRICK 10/14/2023 10:45:52 Final Warfarin Therapy
INR: 2 .0-3.0 conventional anticoagulation
INR: 2.5- 3.5 high intensity anticoagulation Observation Date Value Abnormality Reference (Units ) Status PT 10/14/2023 10:45:52 18.4 Above high normal 11 .6-15.2 (seconds) Final INR 10/14/2023 10:45:52 1.5 Above high normal 0. 8-1.2 Final Performing Location [facility] [place] [address] [place] [address]
--- OUTSIDE RECORDS SUMMARY | 2023-12-20 21:06 | External Medical Summary | Summary of Care ---
Demographics Address [address] [place] [address] Home Phone Email Address .Medius t Preferred Language Czech Marital Status Unknown Rastafarian Affiliation Unknown Race White Ethnic Group Not or Lati no Author Name Unknown Organization [facility] Address [address] [place] [address] Phone [phone] Care Team Providers Care Executive Asst Name Role Phone Mahogany Valentin MD Primary Care Provide r Reason for Visit * Reason Comments Procedure CT guided Liver lesi on biopsy * Auth/Cert Specialty Diagnoses / Procedures Referred By Contcorky t Referred To Contact Diagnoses 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 breast in female, estrogen receptor positive (HCC) Metastasis to bone (HCC) Metastasis to liver (HCC) 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 breast in female, estrogen receptor positive (HCC) [C50.412, Z17.0] Metastasis to bone (HCC) [C79.51] Metastasis to liver (HCC) [C78.7] Procedures PRE / POST CARE PRE / POST CARE [facility] [address] [place] [address] Phone: [phone] Or [facility] [address] [place] [address] Referral ID Status Reason Start Date Expiration Date Visits Re quested Visits Authorized [id number] Encounter Details Date Type Department Care Team (Latest Contact Info) Description 10/21/2023 7:25 AM EDT - 10/21/2023 11:07 AM EDT Hospital Encounter OR [facility], Operating Room, Main Hospital - 4th Floor [address] [place] [address] [facility] [address] [place] [address] Discharge Disposition: Home - Self Care Allergies No known active allergiesdocumented as of this encounter (statuses as of 10/21/2023) Medications Medication Sig Dispensed Refills Start Date [...] as of this encounter (statuses as of 10/21/2023) Active Problems Problem Noted Date Diagnosed Date [...] as of this encounter (statuses as of 10/21/2023) Resolved Problems Problem Noted Date Diagnosed Date [...] as of this encounter (statuses as of 10/21/2023) Immunizations Name Administration Dates Next Due COVID-19 mRNA, LNP-s, No Pre serve, 2-Dose Series ([facility]) 01/24/2021,06/29/2020,06/08/2020 COVID-19, LNP-s, No Preserve , Adam-sucrose, [...] Sign Reading Time Taken Comments Blood Pressure 156/58 10/21/2023 10:56 AM EDT Pulse 79 10/21/2023 10:56 AM EDT Temperature 36.4 C (97.5 F) 10/21/2023 10:56 AM E DT Respiratory Rate 18 10/21/2023 10:56 AM EDT Oxygen Saturation 97% 10/21/2023 10:56 AM EDT Inhaled Oxygen Concentration - - Weight 63.5 kg (140 lb) 10/21/2023 7:36 AM EDT Height 157.5 cm (5' 2") 10/21/2023 7:36 AM EDT Body Mass Index 25.61 10/21/2023 7:36 AM EDT documented in this encounter Discharge Instructions * Discharge Instr - AVS* Lester Poole MD - 10/21/2023 10:14 AM EDT Discharge Date: 10/21/2023 Provider: Dr. Lester Poole If you are experiencing any problems related to your procedure, please contact Interventional Radiology at [phone] during normal business hours: Saturday- Saturday 7:30 am - 4 pm. If a problem occursoutside of normal business hours, please call the hospital chrome tanning drum operator at [phone] and ask for theInterventional Radiologist chyron operator. Contact scheduling for Interventional Radiology at [phone] during normal business hours: Saturday-Saturday, 7:30 am - 4 pm. The information below provides you with the instructions and the list of medications you need to betaking following discharge from the hospital. If you have any questions, please ask before leaving.Please carry this letter with you when you see your doctor in the clinic. If you have questions, you can reach us at the numbers above. SPECIAL INSTRUCTIONS hepatic Biopsy Care After Your Biopsy If you experience pain or discomfort at the site you may use a cold pack on the site and/or take acetaminophen (Tylenol) or your preferred pain medicine as directed. Avoid strenuous activity for 24 to 48 hours after the procedure. Do not lift anything heavier than 10 pounds for 3 days after the procedure. Gradually increase your activity after 24 to 48 hours after the procedure. Keep the dressing clean and dry; change as needed. Dressing can be removed in 24 hours. You may shower after 24 hours. Gently wash the area and pat it dry. Please DO NOT take a bath, soak in a hot tub, or swim until the wound is completely healed. Follow Up Your requesting physician will contact you with the results of your test. Please allow 5 to 7 business days for your results. Please check [employer] messages or contact the referring physician for results. When to Call Interventional Radiology Call Interventional Radiology right away if you have any of the following: Fever above 100 degrees Fahrenheit Increased bleeding, redness, swelling, warmth, or discharge at the incision site. Constant or increasing pain, numbness, coldness, or tingling around the incision area. Vomiting or nausea that does not go away If at any time you experience any of the following or feel you are having a medical emergency, [id number] for emergency assistance. Chest Pain Sudden, severe shortness of breath Rapid heart rate Sudden onset of weakness Coughing up blood See your referring physician for follow-up appointment. Do not smoke or use tobacco products in any way! If you feel suicidal or homicidal, please call the crisis hotline at [phone]-SSTZ ([phone]) MODERATE SEDATION You may have received medication that made you comfortable/sedated you during your procedure. This is considered moderate sedation. This medication was given to relax you. You may also not remember having the procedure done. It may take up to 24 hours for this medication to be out of your system. Because of this, you should observe the following for the next 24 hours: Do not drink alcohol or take depressant drugs. Do not operate any type of machinery that requires hand-eye coordination. Do not sign any legal papers or documents. Do not make any financial decisions. You should be in the presence of an adult for the remainder of the day. If you are experiencing any problems related to your procedure, you should contact the Interventional Radiology physician unless otherwise directed. Driving: You may resume driving 1 day . Diet: You may resume your current diet as tolerated. Return to work or school: You may return to school or work 1 days after the procedure, unless otherwise instructed by the physician. documented in this encounter Progress Notes * Lester Poole MD - 10/21/2023 10:14 AM EDT [facility] [address] OUTPATIENT SURGERY DISCHARGE SUMMARY NOTE Name: Kianna Raymundo Location: OR [facility]/ID Date: 10/21/2023 Time: 10:14 AM Surgery Date: 10/21/2023 Procedure: PRE / POST CARE Left Surgeon: [facility] Discharge Diagnosis: liver nodule; breast CA After examination of this patient, I have determined she is ready for discharge to home when the patient meets criteria. Discharge instructions were given to the patient. * Lester Poole MD - 10/21/2023 10:14 AM EDT Post Sedation Evaluation: Cardiovascular status: acceptable, BP returned to baseline, and hemodynamically stable Level of consciousness: awake and alert Airway patency: patent Distress - NAD Hydration status - well hydrated Nausea/vomiting - not present Pain Evaluation Pain Assessment Flowsheet Row Most Recent Value Pain Assessment Scale [facility] Adult Scale 0-10 Pain Score 0 (no pain) Vital Signs: Temp: 36.1 C (97 F) (10/20 1001) BP: 129/72 (10/20 1001) Pulse: 84 (10/20 1001) Resp: 18 (10/20 1001) SpO2: 96 % (10/20 1001) I have personally examined the patient, prescribed the necessary medications as charted, and certify that Kianna Raymundo is recovered for safe discharge from my face to face care. 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 CTS (carpal tunnel syndrome) 1983 left CTS Depressive disorder, not elsewhere classified Dyslipidemia, goal LDL below 160 History of deep vein thrombosis (DVT) of lower extremity Malignant neoplasm of female breast (HCC) Measles without complication Mixed dyslipidemia Pertussis Tobacco use disorder Past Surgical History: Procedure Laterality Date ADJACENT TISSUE TRANS >10SQCM TRUNK Left 05/04/2015 ADJACENT TISSUE TRANSFER TRUNK 10.1 TO 30SQ CM performed by Florence Mayfield MD at OR [facility] BREAST LESION,OTHER,EXCISION Left 03/16/2015 invasive lobular carcinoma with associated lobular intraepithelial BX LYMPH NODE DEEP AXIL Left 05/04/2015 BIOPSY LYMPH NODE DEEP AXILLARY OPEN performed by Florence Mayfield MD at OR [facility] CARPAL TUNNEL SURGERY 1983 left CHEMOTHERAPY 2016 adjuvant chemotherapy with Adriamycin cyclophosphamide IDENTIFY SENTINEL NODE, RADIOACTIVE TRACER Left 05/04/2015 INJECTION PROCEDURE FOR IDENTIFICATION SENTINEL NODE performed by Florence Mayfield MD at OR [facility] INSER TUNN ACC DEV;5 YRS/OLDER Right 05/25/2015 05/25/2015 INSERT TUNNELED CENTRAL VENOUS ACCESS WITH SUBQ PORT performed by Florence Mayfield MD at [facility] INSERTION OF LENS PROSTHESIS Right 10/2019 INSERTION OF LENS PROSTHESIS Left 04/21/2018 MASTECTOMY, PARTIAL Left 05/04/2015 05/04/2015 MASTECTOMY PARTIAL performed by Florence Mayfield MD at [facility] RADIATION THERAPY Left 03/01/2016 6640 cGy Social History Socioeconomic History Marital status: Spouse name: Not on file Number of children: 0 Years of education: Not on file Highest education level: Not on file Occupational History Occupation: personal banking representative Employer: [employer] Tobacco Use Smoking status: Former Current packs/day: 0.00 Average packs/day: 0.5 packs/day for 30.0 years (15.0 ttl pk-yrs) Types: Cigarettes Start date: 05/24/1985 Quit date: 05/24/2015 Years since quittin.4 Smokeless tobacco: Never Tobacco comments: 5-6 cig/day, Cut down from 1 pack a day. Vaping Use Vaping status: Never Used Substance and Sexual Activity Alcohol use: No Comment: Quit 29 years ago Drug use: No Sexual activity: Yes Partners: Male Other Topics Concern Not on file Social History Narrative 2008, diabetes, 30yrs No Social Determinants of Health Financial Resource Strain: Low Risk (04/11/2023) Financial Resource Strain Do you have any trouble paying for your medications, or do you think you might in the future? (Adult - for ages 18 years and over): No Does your family have trouble paying for medicine? (Household - for ages 0-17 years): Not on file Food Insecurity: No Food Insecurity (04/11/2023) Food Insecurity Do you need food for this week? (Adult - for ages 18 years and over): No Are you able to get enough food for your family? (Household - for ages 0-17 years): Not on file Does your family need food this week? (Household - for ages 0-17 years): Not on file Do you always have enough food for your family? (Household - for ages 0-17 years): Not on file Transportation Needs: No Transportation Needs (04/11/2023) Transportation Needs Do you have trouble getting a ride to medical visits or work? (Adult - for ages 18 years and over):Never True Does your family have a hard time getting a ride to doctors visits? (Household - for ages 0-17 years): Not on file Has lack of transportation kept you from medical appointments, meetings, work, or from getting things needed for daily living? Check all that apply. (Adult - for ages 18 years and over): Not on file Do you (or your family) have trouble finding or paying for a ride (transportation)? (Household - for ages 0-17 years): Not on file Social Connections: Socially Integrated (04/11/2023) Social Connections How often do you feel lonely or isolated from those around you? (Adult - for ages 18 years and over): Never Housing Stability: Low Risk (04/11/2023) Housing Stability Do you currently live in a residential or have no steady place to sleep at night? (Adult - for ages 18 years and over): No Do you think you are at risk of becoming homeless? (Adult - for ages 18 years and over): No Does your family worry about paying for your home or becoming homeless? (Household - for ages 0-17 years): Not on file Are you homeless or worried that you might be in the future? (Adult - for ages 18 years and over): Not on file Are you (or your family) homeless or worried that you might be in the future? (Household - for ages0-17 years): Not on file Family History Problem Relation Name Age of Onset Diabetes Mother Neurological Disorder Mother Hypertension Mother Lung cancer Mother Heart Disorder Father MT Diabetes Sister Diabetes Grandmother (Maternal) Breast Cancer No significant family history Review of patient's allergies indicates: No Known Allergies Current Facility-Administered Medications Medication Dose Route Frequency Provider Last Rate Last Admin isolyte-S pH 7.4 infusion 25 mL/hr Intravenous Continuous Lester Poole MD 25 mL/hr at 10/21/23 [id number] mL/hr at 10/21/23 0830 REVIEW OF SYSTEMS: Constitutional: (-) fever chills sweats or weight loss Cardiovascular: (-) negative: no chest pain, dyspnea, syncope, or palpitations Pulmonary: (-) negative: no cough, wheezing, or shortness of breath Abdominal/GI: (-) negative: no pain, heartburn, dysphagia, bleeding, change in bowel habits, nauseaor vomiting OBJECTIVE: BP 158/81 | Pulse 87 | Temp 36.5 C (97.7 F) (Temporal Artery) | Resp 18 | Ht 1.575 m (5' 2") | Wt 63.5 kg (140 lb) | LMP 01/07/1999 | SpO2 99% | BMI 25.61 kg/m | BSA 1.67 m PHYSICAL EXAM: Constitutional: no acute distress CV: normal rate and rhythm, no murmur, gallops or rub Chest: normal respiratory effort, lungs clear to auscultation and percussion, breath sounds normal Abdomen: normal: soft, bowel sounds normal, no masses, tenderness or organomegaly LABS: CBC Results: PT INR Results: Results for orders placed or performed in visit on 10/14/23 PT INR Result Value Ref Range Prothrombin Time 18.4 (H) 11.6 - 15.2 seconds INR 1.5 (H) 0.8 - 1.2 BUN Results: Lab Results Component Value Date/Time BUN - [facility] 19 10/14/2023 10:45 AM BUN - [facility] 26 (H) 10/08/2023 11:44 AM BUN - [facility] 19 09/13/2023 10:32 AM BUN - [facility] 14 05/05/2020 08:38 AM BUN - [facility] 9 10/30/2019 10:32 AM BUN - [facility] 16 03/09/2019 09:56 AM Creatinine Results: Lab Results Component Value Date/Time CREATININE - [facility] 1.4 (H) 10/14/2023 10:45 AM CREATININE - [facility] 2.0 (H) 10/08/2023 11:44 AM CREATININE - [facility] 1.1 (H) 09/13/2023 10:32 AM CREATININE - [facility] 0.6 05/05/2020 08:38 AM CREATININE - [facility] 0.8 10/30/2019 10:32 AM CREATININE - [facility] 0.8 03/09/2019 09:56 AM CREATININE-OUTSIDE LAB 0.77 05/16/2023 12:00 AM Potassium Results: Lab Results Component Value Date/Time POTASSIUM - [facility] 4.2 10/14/2023 10:45 AM POTASSIUM - [facility] 4.4 10/08/2023 11:44 AM POTASSIUM - [facility] 3.7 09/13/2023 10:32 AM POTASSIUM - [facility] 5.1 05/05/2020 08:38 AM POTASSIUM - [facility] 4.6 10/30/2019 10:32 AM POTASSIUM - [facility] 4.3 03/09/2019 09:56 AM POTASSIUM-OUTSIDE LAB 3.8 05/16/2023 12:00 AM INFORMED CONSENT: Yes PRE-SEDATION ASSESSMENT IMPRESSION/PLAN: Liver mass Lester Poole MD documented in this encounter Nursing Notes * Josseline Ahumada RN - 10/21/2023 11:06 AM EDT [address] [place] [address] SameDay Surgery Discharge Note Name: Kianna Raymundo Date: 10/21/2023 Time: 11:06 AM Discharge Disposition: Home Responsible adult as escort home: Friend Transport Mode: Ambulatory Accompanied by: Josseline Ahumada RN To: Car Belongings with patient: Yes Patient meets criteria to be transferred or discharged. * Cassie Rincon RN - 10/21/2023 9:03 AM EDT Procedure: CT Guided liver mass biopsy Pt placed on procedure table with comfort measures intact. Hemodynamic monitoring placed and initiated, VS stable. Pt denies any complaints at current time. CT activities director scouting images obtained. Timeout performed by Dr. Lester Poole at 0932. Dr. Poole reassessed patient immediately prior to moderate sedation administration and procedure start. Patient prepped for procedure. Skin around biopsy area cleaned with chloraprep and dried. 10 mL 1% buffered lidocaine administered locally to right upper quadrant by MD. Access obtained. Images obtained. Access advanced. Images obtained. Biopsy obtained. Slides prepared and given to botany laboratory assistant who used telecytology method to verify adequacy of cellular material. Access removed. Pressure applied by . Gauze and Tegaderm applied to site. Post procedure image obtained. Patient tolerated procedure well without complications. All wires, catheters, sheaths and other devices have been inspected prior to the procedure for damage. All items not intended to remain in the patient have been inspected, accounted for and have beenremoved from the patient at the end of the procedure. This has been confirmed by the operating physician. Pt recieved moderate sedation for their procedure, the patient recieved fentanyl and versed and wassedated for a total of 17 minutes. Start 930 End 947 Total medications given Versed: 1 mg Fentanyl: 50 mcg 1% buffered lidocaine: 10 mL documented in this encounter OR Notes * OR Surgeon - Lester Poole MD - 10/21/2023 11:07 AM EDT Procedure: CT-guided percutaneous [left lobe liver] biopsy. INDICATION: [Recurrent breast carcinoma] 10/21/2023 ATTENDING (OPERATING PHYSICIAN): [Zulema] CONSENT: After a detailed discussion of the procedure, risks, benefits and alternative treatment options, informed consent was obtained. TIME OUT: A time out procedure was performed. The patient's identification was verified. Informed consent with agreement of procedure, site and position was obtained. All necessary equipment was available prior to procedure. CONTRAST: No contrast administered. COMPLICATIONS: None. ANESTHESIA: [Local lidocaine.] [IV Versed.] [IV Fentanyl.] SEDATION TIME: [Start to end: [931-9 48]. Qualified nurse sedation observer [Cassie Shultz RN.] MEDICATIONS: See MAR PROCEDURE DESCRIPTION: After survey CT images of the [abdomen] were performed, the [hepatic nodule]was studied. Then the access site was selected and prepped and draped in the usual sterile fashion.The skin and deep soft tissues were anesthetized and under CT guidance a [17] gauge coaxial needle was advanced just within the [anterior] margin. After satisfactory positioning was confirmed, the inner stylet was removed and [four] [18] gauge core biopsy specimens were obtained via the coaxial needle and placed in a vial of sterile saline. The on- site brownfield redevelopment site manager deemed the samples to be [adequate]. All specimen samples were given to the brownfield redevelopment site manager. The cannula was then removed, hemostasis was achieved and the site was dressed. The patient tolerated the procedure well. I personally performed the procedure. Findings: Limited CT scan images for the purposes of biopsy demonstrate [hepatic lesions]. Further imaging shows the coaxial needle is seen within the margin of the target with more than adequate distance for the biopsy throws. No immediate complication on post biopsy imaging. Bilateral mild hydronephrosis Impression: Successful CT-guided percutaneous [hepatic biopsy. * Operative Report Brief - Lester Poole MD - 10/21/2023 10:12 AM EDT PROCEDURE NOTE - Interventional Radiology [facility] [address] Name: Kianna Raymundo Location: OR [facility]/OR Date: 10/21/2023 Time: 10:12 AM PROCEDURE: liver bx DECK CADET: Dr. Lester Poole ASSISTANTS: none ANESTHESIA: conscious sedation COMPLICATIONS: none SPECIMEN: tissue to surgical pathology ESTIMATED BLOOD LOSS: negligible FINDINGS: hypodense liver nodule documented in this encounter Miscellaneous Notes * Pre-Sedation Assessment - Lester Poole MD - 10/21/2023 9:21 AM EDT PRE-SEDATION ASSESSMENT PRE-SEDATION ASSESSMENT: Liver Bx Level of sedation planned: Minimal Patient's allergies reviewed: Yes H&P Review / Interval Note Documentation: There is no H&P on file. Difficulty with sedation / anesthesia: No Sleep apnea: No History of snoring: No History of difficult intubation: No Decreased ROM neck flexion/extension: No Tracheal deviation: No Decreased ability to open mouth / TMJ: No Loose teeth / dentures / partial: No Congenital deformities / abnormalities: No Dysphagia: No Mallampati Classification: II - soft palate, uvula, fauces visible Chest: Clear Heart: Regular Rhythm ASA Risk Stratification (Select One): ASA 2 - Mild systemic disease, no functional limitations The patient was identified and the procedure verified: Yes The patient was reevaluated immediately prior to the sedation: 10/21/2023 9:21 AM documented in this encounter Plan of Treatment Upcoming Encounters Date Type Department Care Team (Late st Contact Info) Description 10/22/2023 12:15 PM EDT Immunization/Injecti on Hematology/Oncology Treatment, [place] [address] [place] [address] Nurse, Med [address] [facility] [place] [address] 10/29/2023 9:45 AM EDT Pharmacy Pharmacy Hematology Oncology [facility] [address] [facility] [place] [address] [facility], [facility] [address] [facility] [address] 11/12/2023 12:00 PM EDT Hem/Onc Treatment Hematology/Oncology Treatment, [place] [address] [facility], [place] [phone] Leatha, Chair 1 Hem Onc [facility] [address] [facility] [place] [address] 11/19/2023 1:15 PM EDT Hem/Onc Treatment Hematology/Oncology Treatment, [address], [place] [phone] Leatha, Chair 1 Hem Onc [address] [place] [address] 01/07/2024 2:45 PM EDT Office Visit Hematology/Oncology [facility] [address] [facility] [place] [phone] Morales Rodriguez MD [address] [facility] [place] [address] 03/16/2024 1:00 PM EST Office Visit Family Medicine [address] [place] [phone] Mahogany Valentin MD [address] [place] [address] [place] [address] 03/20/2024 1:30 PM EST Imaging Radiology [address] [place] [address] 04/13/2024 1:00 PM EST Nurse Only Ancillary [address] [place] [address] [place], Nurse [address] [place] [address] Pending Results Name Type Priority Associated Diagnoses Date /Time CYTOLOGY Pathology Routine 10/21/2023 9:3 0 AM EDT Scheduled Orders Name Type Priority Associated Diagnoses Orde r Schedule CYTOLOGY Pathology Routine One Time for 1 Occurrences starting 10/21/2023 until 10/21/2023, 1 completed Scheduled Procedures Name Priority Associated Diagnoses Date/Ti [...] this encounter Medical Devices Implanted Type Area Planning Advisor Device Identifier Shelf Expiration Date Model / Serial / Lot Port Power Mri W/8fr Cath - [id number] Implanted:Qty : 1 on 05/25/2015 by Florence Mayfield MD at OR [facility] Left: Subclavian CR BARD : PERIPHERAL VASCULAR 08/17/2016 [id number] / / [id number] documented as of this encounter Administered Medications Inactive Administered Medications - up to 3 most recent administrations Medication Order MAR Action Action Date Dose Rate Site fentaNYL (PF) inj ONCE PRN NARRATOR, Starting on Sat10/21/23 at 0931, Until Sat10/21/23 at 0931 Given 10/21/2023 9:31 AM EDT 50 mcg isolyte-S pH 7.4 infusion Intravenous, at 25 mL/hr, All Patients EXCEPT Dialysis patients Plasma-LYTE 148, isolyte-S, and isolyte-S pH 7.4 are considered equivalent - including for MAR barcode scanning., CONTINUOUS, Starting on Sat10/21/23 at 0900, Until Sat10/21/23 at 1507, Pre-Op New Bag 10/21/2023 8:30 AM EDT 25 mL/hr 25 mL/hr midazolam (Versed) 2 MG/2ML inj ONCE PRN NARRATOR, Starting on Sat10/21/23 at 0933, Until Sat10/21/23 at 0933 Given 10/21/2023 9:33 AM EDT 1 mg Povidone-Iodine nasal swab 4 Swab 4 Swab, Nasal, ONCE, On Sat10/21/23 at 0900, For 1 dose, Apply 2 swabs to each nare., Pre-Op Given 10/21/2023 9:00 AM EDT 4 Swabs documented in this encounter Active and Recently Administered Medications Times are shown in EDT. Scheduled Medication Order 10/19/2023 10/20/2023 10/21/2023 Povidone-Iodine nasal swab 4 Swab (COMPLETED) 4 Swab, Nasal, ONCE, On Sat10/21/23 at 0900, For 1 dose, Apply 2 swabs to each nare., Pre-Op 0900 (Given - Provid er: Jean Claude Johnson RN) Continuous Medication Order 10/19/2023 10/20/2023 10/21/2023 isolyte-S pH 7.4 infusion Intravenous, at 25 mL/hr, All Patients EXCEPT Dialysis patients Plasma-LYTE 148, isolyte-S, and isolyte-S pH 7.4 are considered equivalent - including for MAR barcode scanning., CONTINUOUS, Starting on Sat10/21/23 at 0900, Until Sat10/21/23 at 1507, Pre-Op 0830 (New Bag - Prov ider: Jean Claude Johnson RN) PRN Medication Order 10/19/2023 10/20/2023 10/21/2023 fentaNYL (PF) inj (COMPLETED) ONCE PRN NARRATOR, Starting on Sat10/21/23 at 0931, Until Sat10/21/23 at 0931 0931 (Given - Provid er: Crispin Jain RN) midazolam (Versed) 2 MG/2ML inj (COMPLETED) ONCE PRN NARRATOR, Starting on Sat10/21/23 at 0933, Until Sat10/21/23 at 0933 0933 (Given - Provid er: Crispin Jain RN) documented in this encounter Care Teams Executive Asst Relationship Specialty Start Date End Date Mahogany Valentin MD [address] [place] [address] [place] [address] PCP - General Family Medicine 01/23/17 documented as of this encounter
--- OUTSIDE RECORDS SUMMARY | 2023-12-20 21:06 | External Medical Summary | Summary of Care ---
Demographics Address [address] [place] [address] Home Phone Email Address Preferred Language Chinese Marital Status Unknown Samaritan Affiliation Unknown Race White Ethnic Group Not or Lati no Author Name Unknown Organization [facility] Address [address] [facility] [place] [address] Phone [phone] Care Team Providers Care Insulation Helper Name Role Phone Mahogany Valentin MD Primary Care Provide r Reason for Visit * Reason Comments Outpatient Testing Encounter Details Date Type Department Care Team (Late st Contact Info) Description 10/22/2023 11:40 AM EDT Laboratory Laboratory [facility] [address] [place] [phone] [place], Lab Scenery [address] [place] [address] 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 [...] mRNA, LNP-s, No Pre serve, 2-Dose Series (MyTwinPlace) 01/24/2021,06/29/2020,06/08/2020 COVID-19, LNP-s, No Preserve , Adam-sucrose, Ages 12+ (Pfizer) 09/05/2021 COVID-19, MRNA-LNP, 23-24, P F, 30 MCG/0.3 mL, 12 YRS AND ABOVE, IM (PFIZER-Comirnaty) 01/16/2023 Covid-19, Mrna, Lnp-s, Pf, B ivalent, 30 Mcg, IM, 12 yrs and above (MyTwinPlace) 01/09/2022 Pneumococcal Conjugate Vacc, 13 Valent (Prevnar) [...] 12:15 PM EDT Immunization/Injecti on Hematology/Oncology Treatment, [address] [phone] Nurse, Med [address] [place] [address] Arrived 10/29/2023 9:45 AM EDT Pharmacy Pharmacy Hematology Oncology [facility] [address] [place] [address] [facility] [place] [facility], [facility] Hem/Onc [address] [place] [address] 11/19/2023 1:15 PM EDT Hem/Onc Treatment Hematology/Oncology Treatment, [address] [phone] [place], Chair 1 Hem Onc [facility] [address] [place] [address] 01/07/2024 2:45 PM EDT Office Visit Hematology/Oncology [facility] [place] [address] [place] [phone] Morales Rodriguez MD [address] [place] [address] 03/16/2024 1:00 PM EST Office Visit Family Medicine [address] [place] [phone] Mahogany Valentin MD [address] [place] [address] [place] [address] 03/20/2024 1:30 PM EST Imaging Radiology [address] [place] [address] 04/13/2024 1:00 PM EST Nurse Only Ancillary [address] [place] [address] [place], Nurse Annual [address] [place] [address] Pending Results Name Type Priority Associated Diagnoses Date /Time COMPREHENSIVE METABOLIC PANEL Lab STAT 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 breast in female, estrogen receptor positive (HCC) 10/22/2023 12:01 PM EDT Scheduled Orders Name Type Priority [...] this encounter Medical Devices Implanted Type Area Microsoft Windows Engineer Device Identifier Shelf Expiration Date Model / Serial / Lot Port Power Mri W/8fr Cath - [id number] Implanted:Qty : 1 on 05/25/2015 by Florence Mayfield MD at OR [facility] Left: Subclavian CR BARD : PERIPHERAL VASCULAR 08/17/2016 [id number] / / [id number] documented as of this encounter Visit Diagnoses Diagnosis 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 breast in female, estrogen receptor positive (HCC) documented in this encounter Care Teams Insulation Helper Relationship Specialty Start Date End Date Mahogany Valentin MD [address] [place] [address] [place] [address] PCP - General Family Medicine 01/23/17 documented as of this encounter
--- OUTSIDE RECORDS SUMMARY | 2023-12-20 21:06 | External Medical Summary ---
Demographics Address [address] [place] [address] Phone Unavailable Preferred Language Unknown Marital Status Unknown Yarsani Affiliation Unknown Race Unknown Ethnic Group Unknown Author Name Unknown Address Unknown Organization K09:[facility] [address] [place] [address] Laboratory Report Ordering Provider Test Date Status MONIKA MARTINEZ 10/22/2023 12:08:39 Final Every 2 weeks x 2 months, th en monthly Observation Date Value Abnormality Reference (Units ) Status BUN 10/22/2023 12:08:39 14 6-20 (mg/dL) Final Creatinine 10/22/2023 12:08:39 1.1 Above high normal 0.5-1.0 (mg/dL) Final Glomerular filtration rate/1.73 sq M.predicted [Volume Rate/Area] in Serum, Plasma or Blood by Creatinine-based formula (CKD-EPI) 10/22/2023 12:08:39 50 Below low normal >=60 (mL/min) Final eGFR is calculated based on the CKD-EPI 2020 equation Sodium 10/22/2023 12:08:39 137 135-146 (m mol/L) Final Potassium 10/22/2023 12:08:39 4.8 3.5-5.1 (m mol/L) Final Cl 10/22/2023 12:08:39 105 98-107 (mm ol/L) Final CO2 10/22/2023 12:08:39 18 Below low normal 22- 32 (mmol/L) Final Anion gap 10/22/2023 12:08:39 14 7-15 (mmol /L) Final Glucose 10/22/2023 12:08:39 107 70-120 (mg /dL) Final Albumin 10/22/2023 12:08:39 3.9 3.8-5.0 (g /dL) Final AST (Aspartate aminotransferase) 10/22/2023 12:08:39 47 Above high normal 10-35 (U/L) Final Result may be falsely elevat ed due to hemolysis. Alk Phos 10/22/2023 12:08:39 155 Above high normal 35 -130 (U/L) Final Bilirubin, Total 10/22/2023 12:08:39 0.3 <=1 .2 (mg/dL) Final Calcium 10/22/2023 12:08:39 9.2 8.4-10.2 ( mg/dL) Final Protein 10/22/2023 12:08:39 7.1 6.0-8.3 (g /dL) Final ALT (Alanine aminotransferase) 10/22/2023 12:08:39 15 10-35 (U/L) Tony collins Performing Location [facility] [address] [place] [address]
--- OUTSIDE RECORDS SUMMARY | 2023-12-20 21:06 | External Medical Summary | Summary of Care ---
Demographics Address [address] [address] Home Phone Email Address Preferred Language Yakut Marital Status Unknown Restorationist Affiliation Unknown Race White Ethnic Group Not or Lati no Author Name Unknown Organization [facility] Address [address] [facility] [address] Phone [phone] Care Team Providers Care Screen Tacker Name Role Phone Mahogany Valentin MD Primary Care Provide r Reason for Visit * Reason Comments Outpatient Testing Encounter Details Date Type Department Care Team (Late st Contact Info) Description 10/22/2023 11:40 AM EDT Laboratory Laboratory [facility] [address] [place] [phone] [place], Lab Scenery [address] [place] [address] 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 [...] mRNA, LNP-s, No Pre serve, 2-Dose Series (OpenFin) 01/24/2021,06/29/2020,06/08/2020 COVID-19, LNP-s, No Preserve , Adam-sucrose, Ages 12+ (OpenFin) 09/05/2021 COVID-19, MRNA-LNP, 23-24, P F, 30 MCG/0.3 mL, 12 YRS AND ABOVE, IM (Housekeep-Comirnat) 01/16/2023 Covid-19, Mrna, Lnp-s, Pf, B ivalent, 30 Mcg, IM, 12 yrs and above (OpenFin) 01/09/2022 PPD 02/25/2003 Pneumococcal Conjugate Vacc, 13 [...] 9:45 AM EDT Pharmacy Pharmacy Hematology Oncology [facility] [address] [place] [address] [facility] [place], [facility] Hem/Onc [address] [place] [address] 11/19/2023 1:15 PM EDT Hem/Onc Treatment Hematology/Oncology Treatment, [place] [address] [place] [phone] [place], Chair 1 Hem Onc [facility] [address] 01/07/2024 2:45 PM EDT Office Visit Hematology/Oncology Pia [facility] [place] [address] [place] [phone] Morales Rodriguez MD [address] [place] [address] 03/16/2024 1:00 PM EST Office Visit Family Medicine [address] [place] [phone] Mahogany Valentin MD [address] [place] [address] [place] [address] 03/20/2024 1:30 PM EST Imaging Radiology [address] [place] [address] 04/13/2024 1:00 PM EST Nurse Only Ancillary [address] [place] [address] [place], Nurse [address] [place] [address] Pending Results Name Type Priority Associated Diagnoses [...] this encounter Medical Devices Implanted Type Area Sprinkler Fitter Device Identifier Shelf Expiration Date Model / Serial / Lot Port Power Mri W/8fr Cath - [id number] Implanted:Qty : 1 on 05/25/2015 by Florence [place] MD at [facility] Left: Subclavian CR BARD : PERIPHERAL VASCULAR 08/17/2016 [id number] / / [id number] documented as of this encounter Visit Diagnoses Diagnosis 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 breast in female, estrogen receptor positive (HCC) Metastasis to bone (HCC) Secondary malignant neoplasm of bone and bone marrow documented in this encounter Care Teams Screen Tacker Relationship Specialty Start Date End Date Mahogany Valentin MD [address] [place] [address] [place] [address] PCP - General Family Medicine 01/23/17 documented as of this encounter
--- OUTSIDE RECORDS SUMMARY | 2023-12-20 21:06 | External Medical Summary | Summary of Care ---
Demographics Address [address] [place] [address] Home Phone Email Address Preferred Language Indonesian Marital Status Unknown Anglican Affiliation Unknown Race White Ethnic Group Not or Lati no Author Name Unknown Organization [facility] Address [address] [facility] [place] [address] Phone [phone] Care Team Providers Care Beamster Name Role Phone Mahogany Valentin MD Primary Care Provide r Reason for Visit * Reason Onset Date Comments Test Results Lab 10/29/2023 Encounter Details Date Type Department Care Team (Late st Contact Info) Description 10/29/2023 Telephone Hematology/Oncology [facility] 200 [place] [phone] Morales Rodriguez MD 200 [place] [address] Test Results Lab Allergies No known active [...] mRNA, LNP-s, No Pre serve, 2-Dose Series ([email or web address]) 01/24/2021,06/29/2020,06/08/2020 COVID-19, LNP-s, No Preserve , Adam-sucrose, Ages 12+ ([email or web address]) 09/05/2021 COVID-19, MRNA-LNP, 23-24, P F, 30 MCG/0.3 mL, 12 YRS AND ABOVE, IM (PFIZER-Comirnat) 01/16/2023 Covid-19, Mrna, Lnp-s, Pf, B ivalent, 30 Mcg, IM, 12 yrs and above ([email or web address]) 01/09/2022 PPD 02/25/2003 Pneumococcal Conjugate Vacc, 13 [...] Could you please ask pathologist for ER, [place], her2/souleymane Checkup as well as NGS checkup. Currently she is on Faslodex, she declined for further treatment with Verzenio. documented in this encounter Plan of Treatment Upcoming Encounters Date Type Department Care Team (Late st Contact Info) Description 11/19/2023 1:15 PM EDT Hem/Onc Treatment Hematology/Oncology Treatment, [place] [address] [facility], [place] [phone] Leatha, Chair 1 Hem Onc [facility] 200 [facility] [place] [address] 01/07/2024 2:45 PM EDT Office Visit Hematology/Oncology [facility] [place] 200 [facility] [place] [phone] Morales Rodriguez MD 200 [facility] [place] [address] 03/16/2024 1:00 PM EST Office Visit Family Medicine [address] [place] [phone] Mahogany Valentin MD [address] [place] [address] [place] [address] 03/20/2024 1:30 PM EST Imaging Radiology [address] [place] [address] 04/13/2024 1:00 PM EST Nurse Only Ancillary [address] [place] [address] [place], Nurse Annual [address] [place] [address] Pending Results Name Type Priority Associated Diagnoses [...] this encounter Medical Devices Implanted Type Area Chip Frier Device Identifier Shelf Expiration Date Model / Serial / Lot Port Power Mri W/8fr Cath - [id number] Implanted:Qty : 1 on 05/25/2015 by Florence [place] MD at OR [facility] Left: Subclavian CR BARD : PERIPHERAL VASCULAR 08/17/2016 [id number] / / [id number] documented as of this encounter Visit Diagnoses Diagnosis 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 breast in female, estrogen receptor positive (HCC)- Primary Metastasis to liver (HCC) Secondary malignant neoplasm of liver documented in this encounter Care Teams Beamster Relationship Specialty Start Date End Date Mahogany Valentin MD [address] [place] [address] [place] [address] PCP - General Family Medicine 01/23/17 documented as of this encounter
--- OUTSIDE RECORDS SUMMARY | 2023-12-20 21:06 | External Medical Summary | Summary of Care ---
Demographics Address [address] [place] [address] Home Phone Email Address Preferred Language Lithuanian Marital Status Unknown Islam Affiliation Unknown Race White Ethnic Group Not or Lati no Author Name Unknown Organization [facility] Address [address] [facility] [place] [address] Phone [phone] Care Team Providers Care Banana Carrier Name Role Phone Mahogany Valentin MD Primary Care Provide r Reason for Visit * Reason Onset Date Comments Test Results Lab 10/29/2023 Encounter Details Date Type Department Care Team (Late st Contact Info) Description 10/29/2023 Telephone Hematology/Oncology [facility] 200 [place] [phone] Morales Rodriguez MD 200 [place] [address] Test Results Lab Allergies No known active [...] mRNA, LNP-s, No Pre serve, 2-Dose Series (Plain Vanilla) 01/24/2021,06/29/2020,06/08/2020 COVID-19, LNP-s, No Preserve , Adam-sucrose, Ages 12+ (Plain Vanilla) 09/05/2021 COVID-19, MRNA-LNP, 23-24, P F, 30 MCG/0.3 mL, 12 YRS AND ABOVE, IM (Wedding Reality-Comirnat) 01/16/2023 Covid-19, Mrna, Lnp-s, Pf, B ivalent, 30 Mcg, IM, 12 yrs and above (Plain Vanilla) 01/09/2022 Pneumococcal Conjugate Vacc, 13 Valent (Prevnar) [...] encounter Miscellaneous Notes * Telephone Encounter - Ramsey Wilson RN - 10/29/2023 11:28 AM EDT ----- Message from Morales Rodriguez MD sent at 10/25/2023 6:26 AM EDT ----- Biopsy from the liver -> Metastatic carcinoma compatible with breast primary (10/21/2023). - ER positive. Could you please ask pathologist for ER, [place], her2/souleymane Checkup as well as NGS checkup. Currently she is on Faslodex, she declined for further treatment with Verzenio. documented in this encounter Plan of Treatment Upcoming Encounters Date Type Department Care Team (Late st Contact Info) Description 11/19/2023 1:15 PM EDT Hem/Onc Treatment Hematology/Oncology Treatment, [place] [address] [place] [phone] Leatha, Chair 1 Hem Onc [place] [address] [place] [address] 01/07/2024 2:45 PM EDT Office Visit Hematology/Oncology [facility] [place] [facility] [place] [phone] Morales Rodriguez MD 200 [place] [address] 03/16/2024 1:00 PM EST Office Visit Family Medicine [address] [place] [phone] Mahogany Valentin MD [address] [place] [address] [place] [address] 03/20/2024 1:30 PM EST Imaging Radiology [address] [place] [address] 04/13/2024 1:00 PM EST Nurse Only Ancillary [address] [place] [address] [place], Nurse Annual Wellness [address] [place] [address] [place] [address] Health Maintenance Due Date Last Done Comments [...] this encounter Medical Devices Implanted Type Area Spare Person Device Identifier Shelf Expiration Date Model / Serial / Lot Port Power Mri W/8fr Cath - [id number] Implanted:Qty : 1 on 05/25/2015 by Florence [place] MD at [facility] Left: Subclavian CR BARD : PERIPHERAL VASCULAR 08/17/2016 [id number] / / [id number] documented as of this encounter Care Teams Banana Carrier Relationship Specialty Start Date End Date Mahogany Valentin MD [address] [place] [address] [place] [phone] PCP - General Family Medicine 01/23/17 documented as of this encounter
--- OUTSIDE RECORDS SUMMARY | 2023-12-20 21:07 | External Medical Summary | Summary of Care ---
Demographics Address [address] [place] [address] Home Phone Email Address Preferred Language Nepali Marital Status Unknown Caodaism Affiliation Unknown Race White Ethnic Group Not or Lati no Author Name Unknown Organization [facility] Address [address] [facility] [place] [address] Phone [phone] Care Team Providers Care Supervisor Doping Name Role Phone Mahogany Valentin MD Primary Care Provide r Reason for Referral * Precert (Within 10 days (routine)) - Pending Review Specialty Diagnoses / Procedures Referred By Contac t Referred To Contact Radiology Diagnoses 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 breast in female, estrogen receptor positive (HCC) Metastasis to bone (HCC) Metastasis to liver (HCC) Procedures IR BIOPSY Michelle Rodriguez MD [address] [place] [address] Referral ID Status Reason Start Date Expiration Date V isits Requested Visits Authorized [id number] Pending Review 10/07/2023 999 999 Reason for Visit * Reason Onset Date Comments Order Request 10/07/2023 Encounter Details Date Type Department Care Team (Late st Contact Info) Description 10/07/2023 Telephone Hematology/Oncology [facility] [address] [place] [address] Michelle Rodriguez MD [address] [facility] [address] [place] [phone] Order Request Allergies No known active allergiesdocumented as of this encounter (statuses as of 10/07/2023) Medications Medication Sig Dispensed Refills Start Date [...] as of this encounter (statuses as of 10/07/2023) Active Problems Problem Noted Date Diagnosed Date [...] as of this encounter (statuses as of 10/07/2023) Resolved Problems Problem Noted Date Diagnosed Date [...] Pathologic:Stage IIB(T2, N1a, cM0) - Signed by Michelle Rodriguez MD on 01/11/2016 Dyslipidemia, goal to be determined 04/05/2009 12/25/2011 Overview: Per Lipid Taxonomy. Mixed dyslipidemia 01/07/2003 9 Overview: Per Lipid Taxonomy. Anxiety 01/07/2003 08/23/2022 Other (abnormal) findings on radiological examination of breast 01/07/2003 06/03/2015 HISTORY OF TOBACCO USE 01/07/200302/16 Menopause 01/07/2003 02/16/2015 Osteoporosis 01/07/2003 02/16/2015 Tobacco use disorder 017 documented as of this encounter (statuses as of 10/07/2023) Immunizations Name Administration Dates Next Due COVID-19 mRNA, LNP-s, No Pre serve, 2-Dose Series ([employer]) 01/24/2021,06/29/2020,06/08/2020 COVID-19, LNP-s, No Preserve , Adam-sucrose, Ages 12+ ([employer]) 09/05/2021 COVID-19, MRNA-LNP, 23-24, P F, 30 MCG/0.3 mL, 12 YRS AND ABOVE, IM (PFIZER-Comirnaty) 01/16/2023 Covid-19, Mrna, Lnp-s, Pf, B ivalent, 30 Mcg, IM, 12 yrs and above (Pfizer) 01/09/2022 PPD 02/25/2003 Pneumococcal Conjugate Vacc, 13 [...] money to get more. Never true 04/11/2023 Sex and Gender Information Value Date Recorded Sex Assigned at Female 04/06/2021 10:05 AM EST Gender Identity Female 04/06/2021 10:05 AM EST Sexual Orientation Straight 04/06/2021 10 :05 AM EST Job Start Date Occupation Industry Not on file Not on file Not on file documented as of this encounter Miscellaneous Notes * Telephone Encounter - Katrina Randhawa RN - 10/07/2023 10:26 AM EDT Called patient, she is aware of biopsy order and agreeable to going to [facility] for this. She notes that she is not feeling well on verzenio- not sleeping well, is very fatigued. Also notesthat she was constipated, look dulcolax and had diarrhea x1 Saturday evening. She has had a lot of gas/ stomach cramping. Advised her that if symptoms are not tolerable to let us know- can consider a break from treatment/possible dose reduction. She would like to continue treatment for now. She notes that she is bringing a friend to an appt at 1:30 so will not be home after that. * Telephone Encounter - Gauri Emmanuel OSA - 10/07/2023 10:06 AM EDT IR BIOPSY [IRBIOPSY] (Order [id number] * Addendum Note - Michelle Rodriguez MD - 10/07/2023 9:52 AM EDTAddended by: MICHELLE RODRIGUEZ on: 10/07/2023 09:52 AM Modules accepted: Orders * Telephone Encounter - Michelle Rodriguez MD - 10/07/2023 9:51 AM EDT -ordered biopsy of the liver lesion. Previous biopsy from the axillary lymph node, confirmed the recurrence of breast cancer but hormonal receptor is negative and there was some air quality chemist issues. We need hormonal receptor status for the further management. * Telephone Encounter - Jalyn Rausch OSA - 10/07/2023 8:55 AM EDT Wesley mac had looked at the images and will do the IR Liver biopsy if we can have the order placed and get the patient scheduled thank you documented in this encounter Plan of Treatment Upcoming Encounters Date Type Department Care Team (Late st Contact Info) Description 10/08/2023 9:30 AM EDT Pharmacy Pharmacy Hematology Oncology [place] [address] [place] [address] [facility], [facility] Hem/Onc [facility] [place] [address] 10/08/2023 11:40 AM EDT Laboratory Laboratory [facility] [place] [address] [place] [phone] [place], Lab [place] [address] [address] [place] [address] 10/08/2023 12:00 PM EDT Immunization/Injectio n Hematology/Oncology [address], [address] [phone] Nurse, Med [address] [place] [address] 10/22/2023 12:15 PM EDT Immunization/Injectio n Hematology/Oncology [address], [address] [phone] Nurse, Med [address] [place] [address] 11/12/2023 12:00 PM EDT Immunization/Injectio n Hematology/Oncology Treatment, [place] [facility] [phone] Nurse, Med [address] [facility] [place] [address] 01/07/2024 2:45 PM EDT Office Visit Hematology/Oncology [facility] [address] [facility] [place] [phone] Michelle Rodriguez MD [address] [facility] [place] [address] 03/16/2024 1:00 PM EST Office Visit Family Medicine [address] [phone] Mahogany Valentin MD [address] [place] [address] [place] [address] 03/20/2024 1:30 PM EST Imaging Radiology [address] [place] [address] 04/13/2024 1:00 PM EST Nurse Only Ancillary [address] [place] [address] [place], Nurse [address] [place] [address] Scheduled Orders Name Type Priority Associated Diagnoses Orde r Schedule IR BIOPSY Medical Imaging Routine 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 breast in female, estrogen receptor positive (HCC) Metastasis to bone (HCC) Metastasis to liver (HCC) Ordered: 10/07/2023 Health Maintenance Due Date Last Done Comments [...] this encounter Medical Devices Implanted Type Area Career Development Coordinator/Teacher Device Identifier Shelf Expiration Date Model / Serial / Lot Port Power Mri W/8fr Cath - [id number] Implanted:Qty : 1 on 05/25/2015 by Florence Mayfield MD at OR [facility] Left: Subclavian CR BARD : PERIPHERAL VASCULAR 08/17/2016 [id number] / / [id number] documented as of this encounter Visit Diagnoses Diagnosis 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 breast in female, estrogen receptor positive (HCC)- Primary Metastasis to bone (HCC) Secondary malignant neoplasm of bone and bone marrow Metastasis to liver (HCC) Secondary malignant neoplasm of liver documented in this encounter Care Teams Supervisor Doping Relationship Specialty Start Date End Date Mahogany Valentin MD [address] [place] [address] [place] [address] PCP - General Family Medicine 01/23/17 documented as of this encounter
--- OUTSIDE RECORDS SUMMARY | 2023-12-20 21:07 | External Medical Summary | Summary of Care ---
Demographics Address [address] [place] [address] Home Phone Email Address Preferred Language Slovenian Marital Status Unknown Christianity Affiliation Unknown Race White Ethnic Group Not or Lati no Author Name Unknown Organization [facility] Address [address] [facility] [place] [address] Phone [phone] Care Team Providers Care Automobile Service Writer Name Role Phone Mahogany Valentin MD Primary Care Provide r Reason for Visit * Reason Onset Date Comments Patient Assistance Program 09/18/2023 Emiliano wilder Encounter Details Date Type Department Care Team (Late st Contact Info) Description 09/18/2023 Telephone Hematology/Oncology [facility] [place] [address] [facility] [place] [phone] Morales Rodriguez 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 30 Tablet 3 09/18/2023 Active Abemaciclib 150 MG Oral Tablet (Verzenio)Indicatio ns: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 breast in female, estrogen receptor positive (HCC) Take 1 Tablet by mouth in the morning and 1 Tablet before bedtime. 60 Tablet 5 09/18/2023 Active Apixaban 5 MG Oral Tablet (Eliquis) Take 1 Tablet by mouth in the morning and 1 Tablet before bedtime. 09/18/19 24 Discontinu ed(Refill) documented as of this encounter (statuses as of 10/10/2023) Active Problems Problem Noted Date Diagnosed Date [...] as of this encounter (statuses as of 10/10/2023) Resolved Problems Problem Noted Date Diagnosed Date [...] as of this encounter (statuses as of 10/10/2023) Immunizations Name Administration Dates Next Due COVID-19 mRNA, LNP-s, No Pre serve, 2-Dose Series ([employer]) 01/24/2021,06/29/2020,06/08/2020 COVID-19, LNP-s, No Preserve , Adam-sucrose, Ages 12+ (Pfizer) 09/05/2021 COVID-19, MRNA-LNP, 23-24, P F, 30 MCG/0.3 mL, 12 YRS AND ABOVE, IM (PFIZER-Comirnaty) 01/16/2023 Covid-19, Mrna, Lnp-s, Pf, B ivalent, 30 Mcg, IM, 12 yrs and above ([employer]) 01/09/2022 PPD 02/25/2003 Pneumococcal Conjugate Vacc, 13 [...] may be eligible. Also sent applications forpharmacy nanette/mainspring strip gauger. Sounds like she will be eligible for pharmacy nanette. Applications mailed: : YES Follow up: 09/25/2023 Thank you, Yajaira Mann Medication Consulting Software Engineer 09/19/2023, 10:18 AM * Telephone Encounter - Yajaira Mann OSA - 09/18/2023 3:03 PM EDT Patient Assistance Name of Medication: Abemaciclib 150 MG Oral Tablet (Verzenio) Was patient spoken to: : NO, left message. Type of assistance: Will screen for Pharmacy Nanette/PACE/Tugboat Engineer Applications mailed: : YES Follow up: 09/25/2023 Thank you, Yajaira Mann Medication Consulting Software Engineer 09/18/2023, 3:03 PM * Telephone Encounter - Mary Marin CPhT - 09/18/2023 9:55 AM EDT GSP Patient Assistance Request: Medication name: Verzenio Insurance? medicare d Co-pay amount: [phone] Action needed: new funding inquiry Target ship date (if applicable): new start IF HEM/ONC: [facility]: Yes All other department requests should be flagged in referral. Confirm encounter department selected is for prescribing physician: Yes If URGENT: Send TEAMS message to appropriate pressing department supervisor (see "Patient Assistance Guide" - ROUTING POOLS:[facility] on shared drive): [] Urgent message sent to: Thank you, Mary Marin CPhT [facility] 09/18/2023,9:55 AM documented in this encounter Plan of Treatment Upcoming Encounters Date Type Department Care Team (Late st Contact Info) Description 10/15/2023 9:30 AM EDT Pharmacy Pharmacy Hematology Oncology [facility] [place] [address] [place] [address] [facility], [facility] Hem/Onc [address] [place] [address] 10/22/2023 12:15 PM EDT Immunization/Injecti on Hematology/Oncology Treatment, [place] [address] [place] [address] Nurse, Med 4 [address] [facility] [place] [address] 11/12/2023 12:15 PM EDT Hem/Onc Treatment Hematology/Oncology Treatment, [place] [address] [place], [place] [phone] Leatha, Chair 1 Hem Onc [address] [place] [address] 01/07/2024 2:45 PM EDT Office Visit Hematology/Oncology [facility] [place] [address] [place] [phone] Morales Rodriguez MD [address] [place] [address] 03/16/2024 1:00 PM EST Office Visit Family Medicine [address] [place] [phone] Mahogany Valentin MD [address] [place] [address] [place] [address] 03/20/2024 1:30 PM EST Imaging Radiology [address] [place] [address] 04/13/2024 1:00 PM EST Nurse Only Ancillary [address] [place] [address] [place], Nurse Annual Wellness [address] [place] [address] [place] [address] Health Maintenance Due Date Last Done Comments [...] this encounter Medical Devices Implanted Type Area Tugboat Engineer Device Identifier Shelf Expiration Date Model / Serial / Lot Port Power Mri W/8fr Cath - [id number] Implanted:Qty : 1 on 05/25/2015 by Florence Mayfield MD at OR [facility] Left: Subclavian CR BARD : PERIPHERAL VASCULAR 08/17/2016 [id number] / / [id number] documented as of this encounter Care Teams Automobile Service Writer Relationship Specialty Start Date End Date Mahogany Valentin MD [address] [place] [address] [place] [address] PCP - General Family Medicine 01/23/17 documented as of this encounter
--- OUTSIDE RECORDS SUMMARY | 2023-12-20 21:07 | External Medical Summary | Summary of Care ---
Demographics Address [address] [place] [address] Home Phone Email Address Preferred Language Sinhala Marital Status Unknown Caodaism Affiliation Unknown Race White Ethnic Group Not or Lati no Author Name Unknown Organization [facility] Address [address] [facility] [place] [address] Phone [phone] Care Team Providers Care Money Room Teller Name Role Phone Mahogany Valentin MD Primary Care Provide r Reason for Visit * Reason Onset Date Comments Scheduling 10/07/2023 Encounter Details Date Type Department Care Team (Late st Contact Info) Description 10/07/2023 Telephone Hematology/Oncology [facility] [place] [address] [facility] [place] [phone] Morales Rodriguez MD [address] [facility] [address] Scheduling Allergies No known active allergiesdocumented as of [...] mRNA, LNP-s, No Pre serve, 2-Dose Series ([employer]) 01/24/2021,06/29/2020,06/08/2020 COVID-19, LNP-s, No Preserve , Adam-sucrose, Ages 12+ ([employer]izer) 09/05/2021 COVID-19, MRNA-LNP, 23-24, P F, 30 MCG/0.3 mL, 12 YRS AND ABOVE, IM (PFIZER-Comirnaty) 01/16/2023 Covid-19, Mrna, Lnp-s, Pf, B ivalent, 30 Mcg, IM, 12 yrs and above ([employer]) 01/09/2022 Pneumococcal Conjugate Vacc, 13 Valent (Prevnar) [...] encounter Miscellaneous Notes * Telephone Encounter - Jalyn Rausch, ABIGAIL - 10/07/2023 1:46 PM EDT Tried calling patient but it rang and didn't go to voiceksil we will try her again later documented in this encounter Plan of Treatment Upcoming Encounters Date Type Department Care Team (Late st Contact Info) Description 10/08/2023 9:30 AM EDT Pharmacy Pharmacy Hematology Oncology [facility] [address] [place] [address] [facility], [facility] Hem/Onc [address] [place] [address] 10/08/2023 11:40 AM EDT Laboratory Laboratory Pia Zhang [place] [address] [place] [phone] Park Lab [facility] [address] [place] [address] 10/08/2023 12:00 PM EDT Immunization/Injectio n Hematology/Oncology [address], [address] [phone] Nurse, Med [address] [place] [address] 10/22/2023 12:15 PM EDT Immunization/Injectio n Hematology/Oncology Treatment, [address] [place] [address] Nurse, Med [address] [place] [address] [address] 11/12/2023 12:00 PM EDT Immunization/Injectio n Hematology/Oncology Treatment, [place] 200 [facility] [place] [address] Nurse, Med [address] [place] [address] 01/07/2024 2:45 PM EDT Office Visit Hematology/Oncology [facility] [place] [address] [place] [phone] Morales Rodriguez MD 200 [facility] [place] [address] 03/16/2024 1:00 PM EST Office Visit Family Medicine [address] [place] [phone] Mahogany Valentin MD [address] [place] [address] [place] [address] 03/20/2024 1:30 PM EST Imaging Radiology [address] [place] [address] 04/13/2024 1:00 PM EST Nurse Only Ancillary [address] [place] [address] [place], Nurse Annual [address] [place] [address] Health Maintenance Due Date Last Done Comments [...] this encounter Medical Devices Implanted Type Area Microphone Operator Device Identifier Shelf Expiration Date Model / Serial / Lot Port Power Mri W/8fr Cath - [id number] Implanted:Qty : 1 on 05/25/2015 by Florence Mayfield MD at [facility] Left: Subclavian CR BARD : PERIPHERAL VASCULAR 08/17/2016 [id number] / / [id number] documented as of this encounter Care Teams Money Room Teller Relationship Specialty Start Date End Date Mahogany Valentin MD [address] [place] [address] [place] [address] PCP - General Family Medicine 01/23/17 documented as of this encounter
--- OUTSIDE RECORDS SUMMARY | 2023-12-20 21:07 | External Medical Summary | Summary of Care ---
Demographics Address [address] [place] [address] Home Phone Email Address Preferred Language Yi Marital Status Unknown Caodaism Affiliation Unknown Race White Ethnic Group Not or Lati no Author Name Unknown Organization [facility] Address [address] [place] [address] Phone [phone] Care Team Providers Care Egg Packer Name Role Phone Mahogany Valentin MD Primary Care Provide r Reason for Visit * Reason Comments Medication Management Encounter Details Date Type Department Care Team (Late st Contact Info) Description 10/08/2023 9:30 AM EDT Pharmacy Pharmacy Hematology Oncology [facility] [address] [place] [address] [facility] [place] [facility] Hem/Onc [address] [place] [address] 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 breast in female, estrogen receptor positive (HCC)* Allergies No known active allergiesdocumented as of this encounter (statuses as of 10/08/2023) Medications Medication Sig Dispensed Refills Start Date [...] as of this encounter (statuses as of 10/08/2023) Active Problems Problem Noted Date Diagnosed Date [...] as of this encounter (statuses as of 10/08/2023) Resolved Problems Problem Noted Date Diagnosed Date [...] as of this encounter (statuses as of 10/08/2023) Immunizations Name Administration Dates Next Due COVID-19 mRNA, LNP-s, No Pre serve, 2-Dose Series (Playspace) 01/24/2021,06/29/2020,06/08/2020 COVID-19, LNP-s, No Preserve , Adam-sucrose, [...] this encounter Progress Notes * Jenny Otto, [facility] - 10/08/2023 12:52 PM EDT MEDICATION THERAPY MANAGEMENT ABEMACICLIB TREATMENT PROGRESS NOTE Kianna Raymundo [phone] Patient Phone Numbers Pref[place] [facility] [place] [facility]: [facility] Communication: Chart review Treatment: Medication: Abemaciclib (Verzenio) Indication/Staging/Diagnosis Code: ER+/LA-/HER2- breast cancer / Stage IIB / C50.412 Dose: 150mg BID Administration: +/- food Start Date: 09/30/23 Primary Indexer/Oncologist: Dr. Otilia Rodriguez Supportive Care Meds: Fulvestrant [...] pt is not feeling well on abemaciclib Per discussion with Tanya, treatment room NURSE ORTHO, pt has been unable to eat since 10/05/23 due to N/V/D Changes to medication list since last visit? N/A Assessment and Plan: Na+ low Creatinine and BUN elevated secondary to emesis and diarrhea AST stable at 1.2 times ULN All other labs stable Per discussion with HUMBERTO Martínez, labs reviewed with Dr. Rodriguez and pt advised to HOLD abemaciclib Pt to walk in for repeat labs 10/13 MTM to follow up with lab results Assessment of compliance: N/A Assessment of adverse effects attributed to drug therapy: N/A Dose adjustment needed based on lab or adverse drug reaction? Yes, HOLD Follow up: 1 week Jenny Otto, PharmD, BCOP Clinical Pharmacist, [facility] Oral Chemotherapy [facility] 10/08/2023, 1:05 PM Monitoring Parameters: Estimated CrCl Serum creatinine: 2 mg/dL (H) 10/08/23 1144 Estimated creatinine clearance: 21.3 mL/min (A) Hepatitis panel Latest Reference Range [...] Range & Units 09/13/23 10:32 10/08/23 11:44 WBC 4.00 - 10.80 K/uL 7.10 7.33 RBC 3.85 - 5.15 M/uL 4.04 3.99 HGB 12.0 - 15.3 g/dL 12.2 12.0 HCT 36.0 - 45.2 % 36.9 37.1 MCV 81.5 - 97.5 fL 91.3 93.0 MCH 27.0 - 34.0 pg 30.2 30.1 MCHC 32.0 - 36.0 g/dL 33.1 32.3 RDW 11.5 - 15.5 % 14.2 14.0 PLT 140 - 400 K/uL 278 224 MPV 6.6 - 11.1 fL 9.7 9.4 CBC WITH WBC DIFFERENTIAL Rpt ! Rpt ! Absolute Neutrophils 1.80 - 7.70 K/uL 4.57 5.59 Latest Reference Range & Units 09/13/23 10:32 10/08/23 11:44 BUN 6 - 20 mg/dL 19 26 (H) Creatinine 0.5 - 1.0 mg/dL 1.1 (H) 2.0 (H) Estimated Glomerular Filtration Rate >=60 mL/min 53 (L) 25 (L) Latest Reference Range & Units 09/13/23 10:32 10/08/23 11:44 Sodium 135 - 146 mmol/L 138 132 (L) Latest Reference Range & Units 09/13/23 10:32 10/08/23 11:44 Albumin 3.8 - 5.0 g/dL 4.1 3.9 AST 10 - 35 U/L 41 (H) 43 (H) ALT 10 - 35 U/L 11 11 Alkaline Phosphatase 35 - 130 U/L 136 (H) 135 (H) Bilirubin, Total <=1.2 mg/dL 0.4 0.4 Time Spent on Encounter: 6 - 10 minutes Encounter Group: Oncology Encounter Interventions Item Category: Oral Chemotherapy Abemaciclib Problem/Rationale: Safety: Adverse medication event - Undesirable effect Pharmacist Intervention(s): Discussed patient with nursing, Lab monitoring, and Medication held Magnitude of Intervention: Modification of medications for symtomatic patients (Level 3) documented in this encounter Plan of Treatment Upcoming Encounters Date Type Department Care Team (Late st Contact Info) Description 10/15/2023 9:30 AM EDT Pharmacy Pharmacy Hematology Oncology [facility] [place] [address] [place] [address] [facility] [place] [facility] Hem/Onc [address] [place] [address] 10/22/2023 12:15 PM EDT Immunization/Injecti on Hematology/Oncology Treatment, [place] [facility] [phone] Nurse, Med 200 [facility] [place] [address] 11/12/2023 12:15 PM EDT Hem/Onc Treatment Hematology/Oncology [address], [address] [phone] Leatha, Chair 1 Hem Onc [address] [place] [address] 01/07/2024 2:45 PM EDT Office Visit Hematology/Oncology [facility] 200 [facility] [place] [phone] Morales Rodriguez MD 200 [facility] [place] [address] 03/16/2024 1:00 PM EST Office Visit Family Medicine [address] [place] [phone] Mahogany Valentin MD [address] [place] [address] [place] [address] 03/20/2024 1:30 PM EST Imaging Radiology [address] [place] [address] 04/13/2024 1:00 PM EST Nurse Only Ancillary [address] [place] [address] Roz, Nurse [address] [place] [address] Health Maintenance Due Date Last Done Comments [...] this encounter Medical Devices Implanted Type Area Child Care Nurse Device Identifier Shelf Expiration Date Model / Serial / Lot Port Power Mri W/8fr Cath - [id number] Implanted:Qty : 1 on 05/25/2015 by [place] Mayfield MD at [facility] Left: Subclavian CR BARD : PERIPHERAL VASCULAR 08/17/2016 [id number] / / [id number] documented as of this encounter Visit Diagnoses Diagnosis 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 breast in female, estrogen receptor positive (HCC)- Primary documented in this encounter Care Teams Egg Packer Relationship Specialty Start Date End Date Mahogany Valentin MD [address] [place] [address] [place] [address] PCP - General Family Medicine 01/23/17 documented as of this encounter
--- OUTSIDE RECORDS SUMMARY | 2023-12-20 21:07 | External Medical Summary | Summary of Care ---
Demographics Address [address] [address] Home Phone Email Address Preferred Language Sami Marital Status Unknown Hoahaoism Affiliation Unknown Race White Ethnic Group Not or Lati no Author Name Unknown Organization [facility] Address [address] [facility] [address] Phone [phone] Care Team Providers Care Sea Air Land Officer Name Role Phone Mahogany Valentin MD Primary Care Provide r Encounter Details Date Type Department Care Team (Late st Contact Info) Description 10/08/2023 Orders Only Hematology/Oncology [facility] [place] 200 [facility] [place] [address] Morales Rodriguez MD 200 [place] [address] Allergies No known active allergiesdocumented as of [...] mRNA, LNP-s, No Pre serve, 2-Dose Series (STEARCLEAR) 01/24/2021,06/29/2020,06/08/2020 COVID-19, LNP-s, No Preserve , Adam-sucrose, Ages 12+ (Pfizer) 09/05/2021 COVID-19, MRNA-LNP, 23-24, P F, 30 MCG/0.3 mL, 12 YRS AND ABOVE, IM (PFIZER-Comirnaty) 01/16/2023 Covid-19, Mrna, Lnp-s, Pf, B ivalent, 30 Mcg, IM, 12 yrs and above (STEARCLEAR) 01/09/2022 Pneumococcal Conjugate Vacc, 13 Valent (Prevnar) [...] No 04/11/2023 Does the household have a [facility] [facility] source of income? (Household - for [...] 9:30 AM EDT Pharmacy Pharmacy Hematology Oncology [place] [address] [place] [address] [facility] [place] Hem/Onc [address] [place] [address] 10/22/2023 12:15 PM EDT Immunization/Injecti on Hematology/Oncology Treatment, [place] 200 [facility] [place] [address] Nurse, Med 4 [facility] [phone] 11/12/2023 12:15 PM EDT Hem/Onc Treatment Hematology/Oncology Treatment, [place] 200 [facility] [place] [phone] Leatha, Chair 1 Hem Onc [address] [place] [address] 01/07/2024 2:45 PM EDT Office Visit Hematology/Oncology [facility] [place] [address] [place] [phone] Morales Rodriguez MD [address] [place] [address] 03/16/2024 1:00 PM EST Office Visit Family Medicine [address] [place] [phone] Mahogany Valentin MD [address] [place] [address] [place] [address] 03/20/2024 1:30 PM EST Imaging Radiology [address] [place] [address] 04/13/2024 1:00 PM EST Nurse Only Ancillary [address] [place] [address] [place], Nurse Annual [address] [place] [address] Health Maintenance Due Date Last Done Comments [...] this encounter Medical Devices Implanted Type Area Trolley Coach Driver Device Identifier Shelf Expiration Date Model / Serial / Lot Port Power Mri W/8fr Cath - [id number] Implanted:Qty : 1 on 05/25/2015 by [place] Mayfield MD at [facility] Left: Subclavian CR BARD : PERIPHERAL VASCULAR 08/17/2016 [id number] / / [id number] documented as of this encounter Care Teams Sea Air Land Officer Relationship Specialty Start Date End Date Mahogany Valentin MD [address] [place] [address] [place] [phone] PCP - General Family Medicine 01/23/17 documented as of this encounter
--- OUTSIDE RECORDS SUMMARY | 2023-12-20 21:07 | External Medical Summary | Summary of Care ---
Demographics Address [address] [place] [address] Home Phone Email Address Preferred Language Persian Marital Status Unknown Episcopalian Affiliation Unknown Race White Ethnic Group Not or Lati no Author Name Unknown Organization [facility] Address [address] [facility] [place] [address] Phone [phone] Care Team Providers Care Fur Blower Name Role Phone Mahogany Valentin MD Primary Care Provide r Reason for Visit * Reason Onset Date Comments Scheduling 10/07/2023 Encounter Details Date Type Department Care Team (Late st Contact Info) Description 10/07/2023 Telephone Hematology/Oncology [facility] [place] 200 [place] [phone] Morales Rodriguez MD [address] [facility] [address] Scheduling Allergies No known active allergiesdocumented as [...] mRNA, LNP-s, No Pre serve, 2-Dose Series (Manzama) 01/24/2021,06/29/2020,06/08/2020 COVID-19, LNP-s, No Preserve , Adam-sucrose, Ages 12+ (Pfizer) 09/05/2021 COVID-19, MRNA-LNP, 23-24, P F, 30 MCG/0.3 mL, 12 YRS AND ABOVE, IM (COH-Comirnat) 01/16/2023 Covid-19, Mrna, Lnp-s, Pf, B ivalent, 30 Mcg, IM, 12 yrs and above (Manzama) 01/09/2022 PPD 02/25/2003 Pneumococcal Conjugate Vacc, 13 [...] encounter Miscellaneous Notes * Addendum Note - Liseth Rincon RN - 10/10/2023 9:57 AM EDTAddended by: LISETH RINCON on: 10/10/2023 09:57 AM Modules accepted: Orders * Telephone Encounter - Liseth Rincon RN - 10/10/2023 9:52 AM EDT Called patient to schedule CT left lobe liver lesion biopsy on 10/21/23 @ 0900. Patient identified by: name and date of Person taught: Patient METHOD: Lecture-telephone interview PATIENT INSTRUCTIONS GIVEN: - Medication Instructions Reviewed: Hold plavix for 48 hours prior to procedure. May take all othermedications as usual. - NPO Instructions Reviewed, pt to stop eating 8 hours prior to procedure and stop drinking 2 hoursprior to procedure. -Respiratory Therapy Manager required -Location and check-in instructions - Obtain blood work as ordered: PT/INR ordered Verbalizes understanding of education: Yes Procedure date at time of Imaging Encounter: 10/21/23 @ 0900 What procedure is patient having? CT left lobe liver lesion biopsy Laterality confirmed as Left Does the patient have a yellow bar? did not The Patient was given the opportunity to ask questions concerning the procedure. Signature: Liseth Rincon RN 10/10/2023 * Telephone Encounter - Jalyn Rausch OSA - 10/07/2023 1:46 PM EDT Tried calling patient but it rang and didn't go to voicemail we will try her again later documented in this encounter Plan of Treatment Upcoming Encounters Date Type Department Care Team (Late st Contact Info) Description 10/15/2023 9:30 AM EDT Pharmacy Pharmacy Hematology Oncology [address] [address] [facility] [place], [facility] Hem/Onc [address] [place] [address] 10/22/2023 12:15 PM EDT Immunization/Injecti on Hematology/Oncology Treatment, [address] [phone] Nurse, Med [address] [place], [place] [address] [address] 11/12/2023 12:15 PM EDT Hem/Onc Treatment Hematology/Oncology Treatment, [address] [phone] Leatha, Chair 1 Hem Onc [address] [address] 01/07/2024 2:45 PM EDT Office Visit Hematology/Oncology [facility], [address] [place] [phone] Morales Rodriguez MD [address] [place] [address] 03/16/2024 1:00 PM EST Office Visit Family Medicine [address] [place] [phone] Mahogany Valentin MD [address] [place] [address] [place] [address] 03/20/2024 1:30 PM EST Imaging Radiology [address] [place] [address] 04/13/2024 1:00 PM EST Nurse Only Ancillary [address] [place] [address] [place], Nurse Annual [address] [place] [address] Scheduled Orders Name Type Priority Associated Diagnoses Orde r Schedule PT INR Lab Routine Malignant neoplasm of central portion of left breast in female, estrogen receptor positive (HCC) Expected: 10/10/2023, Expires: 10/09/2024 Health Maintenance Due Date Last Done Comments [...] this encounter Medical Devices Implanted Type Area Fisher Oyster Device Identifier Shelf Expiration Date Model / Serial / Lot Port Power Mri W/8fr Cath - [id number] Implanted:Qty : 1 on 05/25/2015 by [place] Mayfield MD at [facility] Left: Subclavian CR BARD : PERIPHERAL VASCULAR 08/17/2016 [id number] / / [id number] documented as of this encounter Visit Diagnoses Diagnosis Malignant neoplasm of central portion of left breast in female, estrogen receptor positive (HCC)- Primary documented in this encounter Care Teams Fur Blower Relationship Specialty Start Date End Date Mahogany Valentin MD [address] [place] [address] [place] [address] PCP - General Family Medicine 01/23/17 documented as of this encounter
--- OUTSIDE RECORDS SUMMARY | 2023-12-20 21:07 | External Medical Summary ---
Author Name Unknown Address Unknown Organization [id number]:[facility] [place] [address] Laboratory Report Ordering Provider Test Date Status MONIKA MARTINEZ 10/08/2023 11:44:41 Final Every 2 weeks x 2 months, th en monthly Observation Date Value Abnormality Reference (Units ) Status SYNC LEUKOCYTES IN BLOOD BY AUTOMATED COUNT 10/08/2023 11:44:41 7.33 4.00-10.80 (K/uL) Final Segs 10/08/2023 11:44:41 76.2 Above high normal 40.0-75.0 (%) Final Lymphs % 10/08/2023 11:44:41 17.6 Below low normal 18.0-42.0 (%) Final Monos 10/08/2023 11:44:41 4.4 1.0-11.0 (%) Final Eosinophils 10/08/2023 11:44:41 1.5 0.0-6.0 (%) Final Basos 10/08/2023 11:44:41 0.3 0.0-2.0 (%) Final Absolute Segs 10/08/2023 11:44:41 5.59 1.80-7.70 (K/uL) Final Lymphs, absolute 10/08/2023 11:44:41 1.29 1.00-4.80 (K/ul) Final Monos, Abs 10/08/2023 11:44:41 0.32 0.00-1.10 (K/uL) Final Eos, Abs 10/08/2023 11:44:41 0.11 0.00-0.70 (K/uL) Final Basos, Abs 10/08/2023 11:44:41 0.02 0.00-0.20 (K/uL) Final Performing Location [facility] [place] [address]
--- OUTSIDE RECORDS SUMMARY | 2023-12-20 21:07 | External Medical Summary | Summary of Care ---
Demographics Address [address] [place] [address] Home Phone Email Address Preferred Language Bengali Marital Status Unknown Restorationism Affiliation Unknown Race White Ethnic Group Not or Lati no Author Name Unknown Organization [facility] Address [address] [place] [address] Phone [phone] Care Team Providers Care Management Professor Name Role Phone Mahogany Valentin MD Primary [...] to liver (HCC) Peritoneal carcinomatosis (HCC) Procedures [place] INJECTION, FULVESTRANT Morales Rodriguez MD [address] [place] [address] Anc Hem/Onc [address] [address] Referral ID Status Reason Start Date Expiration Date V isits Requested Visits Authorized [id number] Authorized 09/13/2023 04/21/[phone] Encounter Details Date Type Department Care Team (Latest Contact Info) Description 10/08/2023 12:00 PM EDT Immunization/ Injection Hematology/Oncology Treatment, [address] [phone] [address] [place] [address] [place] [address] Metastasis to bone (HCC)*; Malignant neoplasm of [...] mRNA, LNP-s, No Pre serve, 2-Dose Series (Surfkitchen) 01/24/2021,06/29/2020,06/08/2020 COVID-19, LNP-s, No Preserve , Adam-sucrose, Ages 12+ (Pfizer) 09/05/2021 COVID-19, MRNA-LNP, 23-24, P F, 30 MCG/0.3 mL, 12 YRS AND ABOVE, IM ([facility] 01/16/2023 Covid-19, Mrna, Lnp-s, Pf, B ivalent, [...] 9:30 AM EDT Pharmacy Pharmacy Hematology Oncology [facility] [address] [place] [address] [facility] [place] Hem/Onc [address] [place] [address] 10/22/2023 12:15 PM EDT Immunization/Injecti on Hematology/Oncology Treatment, [place] [address] [place] [address] Nurse, Med 4 200 [facility] [place] [address] 11/12/2023 12:15 PM EDT Hem/Onc Treatment Hematology/Oncology [facility], [place] [address] [facility] [place] [phone] Leatha, Chair 1 Hem Onc [facility] 200 [facility] [place] [address] 01/07/2024 2:45 PM EDT Office Visit Hematology/Oncology [facility] [place] [address] [place] [phone] Morales Rodriguez MD 200 [facility] [place] [address] 03/16/2024 1:00 PM EST Office Visit Family Medicine [address] [place] [phone] Mahogany Valentin MD [address] [place] [address] [place] [address] 03/20/2024 1:30 PM EST Imaging Radiology [address] [place] [address] 04/13/2024 1:00 PM EST Nurse Only Ancillary [address] [place] [address] Roz, Nurse [address] [place] [address] Scheduled Orders Name Type Priority Associated Diagnoses Orde r Schedule PHOSPHORUS Lab STAT Metastasis to bone (HCC) Every Month for 12 Occurrences starting 10/08/2023 until 10/07/2024, 1 completed Health Maintenance Due Date Last Done [...] this encounter Medical Devices Implanted Type Area Cna Ltc Device Identifier Shelf Expiration Date Model / Serial / Lot Port Power Mri W/8fr Cath - [id number] Implanted:Qty : 1 on 05/25/2015 by [place] Mayfield MD at [facility] Left: Subclavian CR BARD : PERIPHERAL VASCULAR 08/17/2016 [id number] / / [id number] documented as of this encounter Results * PHOSPHORUS (10/08/2023 11:44 AM EDT) Phosphorus 2.8 2.5 - 4.8 mg/dL 10/08/2023 12:18 PM EDT [facility] 56- Blood Venous blood specimen / Unknown Venipuncture / Unknown 10/08/2023 11:44 AM EDT 10/08/2023 11:44 AM EDT Morales Rodriguez MD LAB BLOOD ORDERABLES [facility] [address] [place] [address] documented in this encounter Visit Diagnoses Diagnosis [...] Left documented in this encounter Care Teams Management Professor Relationship Specialty Start Date End Date Mahogany Valentin MD [address] [place] [address] [place] [address] PCP - General Family Medicine 01/23/17 documented as of this encounter
--- OUTSIDE RECORDS SUMMARY | 2023-12-20 21:07 | External Medical Summary ---
Author Name Unknown Address Unknown Organization K09:[facility] [address] [place] [address] Laboratory Report Ordering Provider Test Date Status MONIKA MARTINEZ 10/08/2023 11:44:41 Final Every 2 weeks x 2 months, th en monthly Observation Date Value Abnormality Reference (Units ) Status BUN 10/08/2023 11:44:41 26 Above high normal 6-20 (mg/dL) Final Creatinine 10/08/2023 11:44:41 2.0 Above high normal 0.5-1.0 (mg/dL) Final Glomerular filtration rate/1.73 sq M.predicted [Volume Rate/Area] in Serum, Plasma or Blood by Creatinine-based formula (CKD-EPI) 10/08/2023 11:44:41 25 Below low normal >=60 (mL/min) Final eGFR is calculated based on the CKD-EPI 2020 equation Sodium 10/08/2023 11:44:41 132 Below low normal 135 -146 (mmol/L) Final Potassium 10/08/2023 11:44:41 4.4 3.5-5.1 (m mol/L) Final Cl 10/08/2023 11:44:41 98 98-107 (mm ol/L) Final CO2 10/08/2023 11:44:41 19 Below low normal 22- 32 (mmol/L) Final Anion gap 10/08/2023 11:44:41 15 7-15 (mmol /L) Final Glucose 10/08/2023 11:44:41 92 70-120 (mg /dL) Final Albumin 10/08/2023 11:44:41 3.9 3.8-5.0 (g /dL) Final AST (Aspartate aminotransferase) 10/08/2023 11:44:41 43 Above high normal 10-35 (U/L) Final Result may be falsely elevat ed due to hemolysis. Alk Phos 10/08/2023 11:44:41 135 Above high normal 35 -130 (U/L) Final Bilirubin, Total 10/08/2023 11:44:41 0.4 <=1 .2 (mg/dL) Final Calcium 10/08/2023 11:44:41 8.0 Below low normal 8.4 -10.2 (mg/dL) Final Protein 10/08/2023 11:44:41 7.2 6.0-8.3 (g /dL) Final ALT (Alanine aminotransferase) 10/08/2023 11:44:41 11 10-35 (U/L) Tony collins Performing Location [facility] [address] [place] [address]
--- OUTSIDE RECORDS SUMMARY | 2023-12-20 21:07 | External Medical Summary | Summary of Care ---
Demographics Address [address] [place] [place] [address] Home Phone Email Address .Glance App t Preferred Language Frisian Marital Status Unknown Episcopalian Affiliation Unknown Race White Ethnic Group Not or Lati no Author Name Unknown Organization [facility] Address [address] [facility] [address] Phone [phone] Care Team Providers Care Computer Meteorologist Name Role Phone Mahogany Valentin MD Primary Care Provide r Encounter Details Date Type Department Care Team (Late st Contact Info) Description 10/08/2023 Orders Only Hematology/Oncology [facility] [place] [address] [place] [address] Morales Rodriguez MD [facility] [address] 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 breast in female, estrogen receptor positive (HCC)*; Metastasis to liver (HCC); Metastasis to bone (HCC); Abnormal kidney function Allergies No known active allergiesdocumented as of [...] mRNA, LNP-s, No Pre serve, 2-Dose Series ([employer]) 01/24/2021,06/29/2020,06/08/2020 COVID-19, LNP-s, No Preserve , Adam-sucrose, [...] Progress Notes * Morales Rodriguez MD - 10/08/2023 12:54 PM EDT Blood workup done on 10/08/2023: -BUN/Creat: 26/2.0, AST 43, ALT 11, alkaline phosphatase 135, bilirubin level 0.4, Calcium level 8.0 Will hold Zometa because of low Calcium level Worsening kidney function test noted. I saw her briefly in the treatment unit. She is on Abemaciclib, advised him to hold the Verzenio at this time. Advised her to drink plenty of water by mouth. Also spoke with the regarding my plan about getting liver biopsy for further evaluation. - added LDH and Uric acid in the morning specimen Would like to repeat comprehensive metabolic panel in about 1 week. She says she will go to [place] office for the blood testing. documented in this encounter Plan of Treatment Upcoming Encounters Date Type Department Care Team (Late st Contact Info) Description 10/15/2023 9:30 AM EDT Pharmacy Pharmacy Hematology Oncology [facility] [address] [place] [address] [facility] [place] [facility], [facility] Hem/Onc [address] [place] [address] 10/22/2023 12:15 PM EDT Immunization/Injecti on Hematology/Oncology Treatment, [address] [place] [phone] Nurse, Med [address] [place] [address] [place] [address] 11/12/2023 12:15 PM EDT Hem/Onc Treatment Hematology/Oncology Treatment, [address] [place] [phone] Leatha, Chair 1 Hem Onc [address] [place] [address] 01/07/2024 2:45 PM EDT Office Visit Hematology/Oncology [address] [place] [phone] Morales Rodriguez MD 200 [facility] [place] [address] 03/16/2024 1:00 PM EST Office Visit Family Medicine [address] [place] [phone] Mahogany Valentin MD [address] [place] [address] [place] [address] 03/20/2024 1:30 PM EST Imaging Radiology [address] [place] [address] 04/13/2024 1:00 PM EST Nurse Only Ancillary [address] [place] [address] Movveronicaey, Nurse [address] [place] [address] Pending Results Name Type Priority Associated Diagnoses Date /Time LD Lab Routine 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 breast in female, estrogen receptor positive (HCC) Metastasis to liver (HCC) Metastasis to bone (HCC) Abnormal kidney function 10/08/2023 11:44 AM EDT URIC ACID Lab Routine 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 breast in female, estrogen receptor positive (HCC) Metastasis to liver (HCC) Metastasis to bone (HCC) Abnormal kidney function 10/08/2023 11:44 AM EDT Scheduled Orders Name Type Priority Associated Diagnoses Orde r Schedule COMPREHENSIVE METABOLIC PANEL Lab STAT 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 breast in female, estrogen receptor positive (HCC) Metastasis to liver (HCC) Metastasis to bone (HCC) Abnormal kidney function Expected: 10/15/2023, Expires: 10/07/2024 LD Lab Routine 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 breast in female, estrogen receptor positive (HCC) Metastasis to liver (HCC) Metastasis to bone (HCC) Abnormal kidney function Expected: 10/08/2023, Expires: 10/07/2024 URIC ACID Lab Routine 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 breast in female, estrogen receptor positive (HCC) Metastasis to liver (HCC) Metastasis to bone (HCC) Abnormal kidney function Expected: 10/08/2023, Expires: 10/07/2024 Health Maintenance Due Date Last Done Comments [...] this encounter Medical Devices Implanted Type Area Group Practice Pediatrician Device Identifier Shelf Expiration Date Model / Serial / Lot Port Power Mri W/8fr Cath - [id number] Implanted:Qty : 1 on 05/25/2015 by Florence Mayfield MD at [facility] Left: Subclavian CR BARD : PERIPHERAL VASCULAR 08/17/2016 [id number] / / [id number] documented as of this encounter Visit Diagnoses Diagnosis 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 breast in female, estrogen receptor positive (HCC)- Primary Metastasis to liver (HCC) Secondary malignant neoplasm of liver Metastasis to bone (HCC) Secondary malignant neoplasm of bone and bone marrow Abnormal kidney function Unspecified disorder of kidney and ureter documented in this encounter Care Teams Computer Meteorologist Relationship Specialty Start Date End Date Mahogany Valentin MD [address] [place] [address] [place] [address] PCP - General Family Medicine 01/23/17 documented as of this encounter
--- OUTSIDE RECORDS SUMMARY | 2023-12-20 21:07 | External Medical Summary | Summary of Care ---
Demographics Address [address] [place] [address] Home Phone Email Address Preferred Language Czech Marital Status Unknown Evangelical Affiliation Unknown Race White Ethnic Group Not or Lati no Author Name Unknown Organization [facility] Address [address] [facility] [address] Phone [phone] Care Team Providers Care Locomotive Oiler Name Role Phone Mahogany Valentin MD Primary Care Provide r Encounter Details Date Type Department Care Team (Late st Contact Info) Description 10/10/2023 Orders Only PATIENT PORTAL DO NOT DELETE THIS DEPT USED BY [place] [address] Allergies No known active allergiesdocumented as of [...] mRNA, LNP-s, No Pre serve, 2-Dose Series (Conspire) 01/24/2021,06/29/2020,06/08/2020 COVID-19, LNP-s, No Preserve , Adam-sucrose, Ages 12+ (Conspire) 09/05/2021 COVID-19, MRNA-LNP, 23-24, P F, 30 MCG/0.3 mL, 12 YRS AND ABOVE, IM ([employer]-Comirnat) 01/16/2023 Covid-19, Mrna, Lnp-s, Pf, B ivalent, 30 Mcg, IM, 12 yrs and above ([facility]pire) 01/09/2022 Pneumococcal Conjugate Vacc, 13 Valent (Prevnar) [...] 9:30 AM EDT Pharmacy Pharmacy Hematology Oncology [facility] [address] [place] [address] [facility], [facility] Hem/Onc [address] [place] [address] 10/22/2023 12:15 PM EDT Immunization/Injecti on Hematology/Oncology Treatment, [place] [facility] [phone] Nurse, Med [address] [facility] [place] [address] 11/12/2023 12:15 PM EDT Hem/Onc Treatment Hematology/Oncology Treatment, [place] [facility] [phone] Leatha, Chair 1 Hem Onc [place] [address] [place] [address] 01/07/2024 2:45 PM EDT Office Visit Hematology/Oncology [facility] [place] 200 [facility] [place] [phone] Morales Rodriguez MD 200 [facility] [place] [address] 03/16/2024 1:00 PM EST Office Visit Family Medicine [address] [place] [phone] Mahogany Valentin MD [address] [place] [address] [place] [address] 03/20/2024 1:30 PM EST Imaging Radiology [address] [place] [address] 04/13/2024 1:00 PM EST Nurse Only Ancillary [address] [place] [address] [place], Nurse Annual [address] [place] [address] Health Maintenance Due Date Last Done Comments [...] this encounter Medical Devices Implanted Type Area Appeals Specialist Device Identifier Shelf Expiration Date Model / Serial / Lot Port Power Mri W/8fr Cath - [id number] Implanted:Qty : 1 on 05/25/2015 by Florence Mayfield MD at OR [facility] Left: Subclavian CR BARD : PERIPHERAL VASCULAR 08/17/2016 [id number] / / [id number] documented as of this encounter Care Teams Locomotive Oiler Relationship Specialty Start Date End Date Mahogany Valentin MD [address] [place] [address] [place] [phone] PCP - General Family Medicine 01/23/17 documented as of this encounter
--- OUTSIDE RECORDS SUMMARY | 2023-12-20 21:07 | External Medical Summary | Summary of Care ---
Demographics Address [address] [address] Home Phone Email Address Preferred Language Romanian Marital Status Unknown Moravian Affiliation Unknown Race White Ethnic Group Not or Lati no Author Name Unknown Organization [facility] Address [address] [facility] [place] [address] Phone [phone] Care Team Providers Care Travel Specialist Name Role Phone Mahogany Valentin MD Primary Care Provide r Reason for Visit * Reason Comments Outpatient Testing Encounter Details Date Type Department Care Team (Late st Contact Info) Description 10/08/2023 11:40 AM EDT Laboratory [facility] [address] [place] [phone] [place], Lab Scenery [address] [place] [address] 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 [...] mRNA, LNP-s, No Pre serve, 2-Dose Series ([employer]) 01/24/2021,06/29/2020,06/08/2020 COVID-19, LNP-s, No Preserve , Adam-sucrose, [...] 12:15 PM EDT Immunization/Injecti on Hematology/Oncology Treatment, [place] [address] [place] [phone] Nurse, Med [address] [facility] [place] [address] 11/12/2023 12:15 PM EDT Hem/Onc Treatment Hematology/Oncology Treatment, [place] [address] [place] [phone] Leatha, Chair 1 Hem Onc [place] [address] [place] [address] 01/07/2024 2:45 PM EDT Office Visit Hematology/Oncology [facility] [address] [place] [address] Morales Rodriguez MD [address] [place] [address] 03/16/2024 1:00 PM EST Office Visit Family Medicine [address] [place] [phone] Mahogany Valentin MD [address] [place] [address] [place] [address] 03/20/2024 1:30 PM EST Imaging Radiology [address] [place] [address] 04/13/2024 1:00 PM EST Nurse Only Ancillary [address] [place] [address] Movalley, Nurse Annual [address] [place] [address] Pending Results Name Type Priority Associated Diagnoses Date /Time COMPREHENSIVE METABOLIC PANEL Lab STAT 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 breast in female, estrogen receptor positive (HCC) 10/08/2023 11:44 AM EDT PHOSPHORUS Lab STAT Metastasis to bone (HCC) 10/08/2023 11:44 AM EDT Health Maintenance Due Date Last [...] this encounter Medical Devices Implanted Type Area English Division Chair Device Identifier Shelf Expiration Date Model / Serial / Lot Port Power Mri W/8fr Cath - [id number] Implanted:Qty : 1 on 05/25/2015 by Florence Mayfield MD at OR [facility] Left: Subclavian CR BARD : PERIPHERAL VASCULAR 08/17/2016 [id number] / / [id number] documented as of this encounter Procedures Procedure Name Priority Date/Time Associated Diagnosis Comments DIFFERENTIAL, AUTOMATED STAT 10/08/2023 11:44 AM EDT 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 breast in female, estrogen receptor positive (HCC) CBC STAT 10/08/2023 11:44 AM EDT 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 breast in female, estrogen receptor positive (HCC) CBC STAT 10/08/2023 11:44 AM EDT 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 breast in female, estrogen receptor positive (HCC) documented in this encounter Results * (ABNORMAL) DIFFERENTIAL, AUTOMATED (10/08/2023 11:44 AM EDT) WBC 7.33 4.00 - 10.80 K/uL 10/08/2023 11:50 AM EDT LABORATORY [facility] 56-02 Neutrophils % 76.2(H) 40.0 - 75.0 % 10/08/2023 11:50 AM EDT LABORATORY [facility] 56-02 Lymphocytes % 17.6(L) 18.0 - 42.0 % 10/08/2023 11:50 AM EDT LABORATORY [facility] 56-02 Monocytes % 4.4 1.0 - 11.0 % 10/08/2023 11:50 AM EDT [facility] 56 Eosinophils % 1.5 0.0 - 6.0 % 10/08/2023 11:50 AM EDT [facility] 56 Basophils % 0.3 0.0 - 2.0 % 10/08/2023 11:50 AM EDT [facility] 56 Absolute Neutrophils 5.59 1.80 - 7.70 K/uL 10/08/2023 11:50 AM EDT [facility] 56 Absolute Lymphocytes 1.29 1.00 - 4.80 K/ul 10/08/2023 11:50 AM EDT [facility] 56 Absolute Monocytes 0.32 0.00 - 1.10 K/uL 10/08/2023 11:50 AM EDT [facility] Absolute Eosinophils 0.11 0.00 - 0.70 K/uL 10/08/2023 11:50 AM EDT [facility] Absolute Basophils 0.02 0.00 - 0.20 K/uL 10/08/2023 11:50 AM EDT [facility] Blood Venous blood specimen / Unknown Venipuncture / Unknown 10/08/2023 11:44 AM EDT 10/08/2023 11:44 AM EDT Morales Rodriguez MD LAB BLOOD ORDERABLES [facility] [address] [place] [address] * CBC (10/08/2023 11:44 AM EDT) WBC 7.33 4.00 - 10.80 K/uL 10/08/2023 11:50 AM EDT [facility] RBC 3.99 3.85 - 5.15 M/uL 10/08/2023 11:50 AM EDT [facility] HGB 12.0 12.0 - 15.3 g/dL 10/08/2023 11:50 AM EDT [facility] 56 HCT 37.1 36.0 - 45.2 % 10/08/2023 11:50 AM EDT [facility] MCV 93.0 81.5 - 97.5 fL 10/08/2023 11:50 AM EDT [facility] 56 MCH 30.1 27.0 - 34.0 pg 10/08/2023 11:50 AM EDT [facility] 56 MCHC 32.3 32.0 - 36.0 g/dL 10/08/2023 11:50 AM EDT [facility] 56 RDW 14.0 11.5 - 15.5 % 10/08/2023 11:50 AM EDT [facility] 56 PLT 224 140 - 400 K/uL 10/08/2023 11:50 AM EDT [facility] 56 MPV 9.4 6.6 - 11.1 fL 10/08/2023 11:50 AM EDT [facility] 56 Blood Venous blood specimen / Unknown Venipuncture / Unknown 10/08/2023 11:44 AM EDT 10/08/2023 11:44 AM EDT Morales Rodriguez MD LAB BLOOD ORDERABLES [facility] [address] [place] [address] documented in this encounter Visit Diagnoses Diagnosis 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 breast in female, estrogen receptor positive (HCC) Metastasis to bone (HCC) Secondary malignant neoplasm of bone and bone marrow documented in this encounter Care Teams Travel Specialist Relationship Specialty Start Date End Date Mahogany Valentin MD [address] [place] [address] [place] [address] PCP - General Family Medicine 01/23/17 documented as of this encounter
--- OUTSIDE RECORDS SUMMARY | 2023-12-20 21:07 | External Medical Summary ---
Demographics Address [address] [facility] [place] [address] Phone Unavailable Preferred Language Unknown Marital Status Unknown Yazidi Affiliation Unknown Race Unknown Ethnic Group Unknown Author Name Unknown Address Unknown Organization K09:[facility] [place] [address] Laboratory Report Ordering Provider Test Date Status MICHELLEMONIKA MYERS 10/08/2023 11:44:41 Final Observation Date Value Abnormality Reference (Units ) Status Phosphate 10/08/2023 11:44:41 2.8 2.5-4.8 (m g/dL) Final Performing Location [facility] [place] [address]
--- OUTSIDE RECORDS SUMMARY | 2023-12-20 21:07 | External Medical Summary | Summary of Care ---
Demographics Address [address] [place] [address] Home Phone Email Address Preferred Language Chinese Marital Status Unknown Caodaism Affiliation Unknown Race White Ethnic Group Not or Lati no Author Name Unknown Organization [facility] Address [address] [facility] [place] [address] Phone [phone] Care Team Providers Care Marketing Project Coordinator Name Role Phone Mahogany Valentin MD Primary Care Provide r Reason for Visit * Reason Onset Date Comments Test Results Lab 10/08/2023 Encounter Details Date Type Department Care Team (Late st Contact Info) Description 10/08/2023 Telephone Hematology/Oncology [facility] 200 [place] [phone] Morales Rodriguez MD 200 [place] [address] Test Results Lab Allergies No known active [...] mRNA, LNP-s, No Pre serve, 2-Dose Series ([facility]) 01/24/2021,06/29/2020,06/08/2020 COVID-19, LNP-s, No Preserve , Adam-sucrose, Ages 12+ ([facility]) 09/05/2021 COVID-19, MRNA-LNP, 23-24, P F, 30 MCG/0.3 mL, 12 YRS AND ABOVE, IM ([employer]Comirnat[employer]) 01/16/2023 Covid-19, Mrna, Lnp-s, Pf, B ivalent, 30 Mcg, IM, 12 yrs and above ([facility]) 01/09/2022 Pneumococcal Conjugate Vacc, 13 Valent (Prevnar) [...] Telephone Encounter - Ramsey Wilson RN - 10/08/2023 12:59 PM EDT MTM is aware and will be checking for repeat lab work. Confirmed with Tanya Engel LPN that patient is aware to hold Verzenio as well as MITCH [place]. Per Dr. Rodriguez lab review: "Blood workup done on 10/08/2023: -BUN/Creat: 26/2.0, AST [...] week. She says she will go to [place] office for the blood testing." documented in this encounter Plan of Treatment Upcoming Encounters Date Type Department Care Team (Late st Contact Info) Description 10/15/2023 9:30 AM EDT Pharmacy Pharmacy Hematology Oncology [address] [address] [facility] [place] Hem/Onc [facility] [place] [address] 10/22/2023 12:15 PM EDT Immunization/Injecti on Hematology/Oncology Treatment, [address] [place] [phone] Nurse, Med [address] [place] [address] [place] [address] 11/12/2023 12:15 PM EDT Hem/Onc Treatment Hematology/Oncology Treatment, [address] [place] [phone] Leatha, Chair 1 Hem Onc [address] [place] [address] 01/07/2024 2:45 PM EDT Office Visit Hematology/Oncology [facility] [address] [place] [phone] Morales Rodriguez MD [address] [place] [address] [place] [address] 03/16/2024 1:00 PM EST Office Visit Family Medicine [address] [place] [phone] Mahogany Valentin MD [address] [place] [address] [place] [address] 03/20/2024 1:30 PM EST Imaging Radiology [address] [place] [address] 04/13/2024 1:00 PM EST Nurse Only Ancillary [address] [place] [address] [place], Nurse Annual Wellness [address] [place] [address] [place] [address] Health Maintenance Due Date Last Done Comments [...] this encounter Medical Devices Implanted Type Area Recycling Technician Device Identifier Shelf Expiration Date Model / Serial / Lot Port Power Mri W/8fr Cath - [id number] Implanted:Qty : 1 on 05/25/2015 by Florence Mayfield MD at OR [facility] Left: Subclavian CR BARD : PERIPHERAL VASCULAR 08/17/2016 [id number] / / [id number] documented as of this encounter Care Teams Marketing Project Coordinator Relationship Specialty Start Date End Date Mahogany Valentin MD [address] [place] [address] [place] [address] PCP - General Family Medicine 01/23/17 documented as of this encounter
--- OUTSIDE RECORDS SUMMARY | 2023-12-20 21:07 | External Medical Summary | Summary of Care ---
Demographics Address [address] [address] Home Phone Email Address .rateGenius t Preferred Language Slovenian Marital Status Unknown Yazidi Affiliation Unknown Race White Ethnic Group Not or Lati no Author Name Unknown Organization [facility] Address [address] [facility] [address] Phone [phone] Care Team Providers Care Director Council On Aging Name Role Phone Mahogany Valentin MD Primary [...] Procedures IR BIOPSY Michelle Rodriguez MD [address] [facility] [place] [address] Referral ID Status Reason Start Date Expiration Date V isits Requested Visits Authorized [id number] Pending Review 10/07/2023 999 999 Reason for Visit * Reason Onset Date Comments Order Request 10/07/2023 Encounter Details Date Type Department Care Team (Late st Contact Info) Description 10/07/2023 Telephone Hematology/Oncology [facility] [place] [address] [place] [address] Michelle Rodriguez MD [address] [facility] [address] [place] [phone] Order Request Allergies No known active allergiesdocumented [...] mRNA, LNP-s, No Pre serve, 2-Dose Series ([facility]) 01/24/2021,06/29/2020,06/08/2020 COVID-19, LNP-s, No Preserve , Adam-sucrose, Ages 12+ ([facility]) 09/05/2021 COVID-19, MRNA-LNP, 23-24, P F, [...] Miscellaneous Notes * Telephone Encounter - Katrina Randhaaw RN - 10/07/2023 10:26 AM EDT Called patient, she is aware of biopsy order and agreeable to going to [facility] for this. She notes that she [...] 10:06 AM EDT IR BIOPSY [IRBIOPSY] (Order [id number] * Addendum Note - Michelle Rodriguez MD - 10/07/2023 9:52 AM EDTAddended by: MICHELLE RODRIGUEZ on: 10/07/2023 09:52 AM Modules accepted: Orders * Telephone Encounter - Michelle Rodriguez MD - 10/07/2023 9:51 AM EDT -ordered biopsy of the liver lesion. Previous biopsy from the axillary lymph node, confirmed the recurrence of breast cancer but hormonal receptor is negative and there was some quality control auditor issues. We need hormonal receptor status for [...] 9:30 AM EDT Pharmacy Pharmacy Hematology Oncology [place] [address] [place] [address] [facility], [facility] Hem/Onc [facility] [place] [address] 10/08/2023 11:40 AM EDT Laboratory Laboratory [facility] [place] [address] [place] [phone] [place], Lab [place] [address] [place] [place] [place] [address] 10/08/2023 12:00 PM EDT Immunization/Injectio n Hematology/Oncology [address], [address] [phone] Nurse, Med [address] [place] [address] 10/22/2023 12:15 PM EDT Immunization/Injectio n Hematology/Oncology Treatment, [address] [phone] Nurse, Med [address] [place] [address] 11/12/2023 12:00 PM EDT Immunization/Injectio n Hematology/Oncology Treatment, [place] [facility] [phone] Nurse, Med 200 [facility] [place] [address] 01/07/2024 2:45 PM EDT Office Visit Hematology/Oncology [facility] [address] [facility] [place] [phone] Michelle Rodriguez MD [address] [facility] [place] [address] 03/16/2024 1:00 PM EST Office Visit Family Medicine [address] [phone] Mahogany Valentin MD [address] [place] [address] [place] [address] 03/20/2024 1:30 PM EST Imaging Radiology [address] [place] [address] 04/13/2024 1:00 PM EST Nurse Only Ancillary [address] [place] [address] [place], Nurse [address] [place] [address] Scheduled Orders Name Type Priority Associated Diagnoses [...] this encounter Medical Devices Implanted Type Area Cafeteria Counter Attendant Device Identifier Shelf Expiration Date Model / Serial / Lot Port Power Mri W/8fr Cath - [id number] Implanted:Qty : 1 on 05/25/2015 by Florence Mayfield MD at OR [facility] Left: Subclavian CR BARD : PERIPHERAL VASCULAR 08/17/2016 [id number] / / [id number] documented as of this encounter Visit Diagnoses Diagnosis 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 breast in female, estrogen receptor positive (HCC)- Primary Metastasis to bone (HCC) Secondary malignant neoplasm of bone and bone marrow Metastasis to liver (HCC) Secondary malignant neoplasm of liver documented in this encounter Care Teams Director Council On Aging Relationship Specialty Start Date End Date Mahogany Valentin MD [address] [place] [address] [place] [address] PCP - General Family Medicine 01/23/17 documented as of this encounter
--- OUTSIDE RECORDS SUMMARY | 2023-12-20 21:07 | External Medical Summary ---
Demographics Address [address] [facility] [place] [address] Phone Unavailable Preferred Language Unknown Marital Status Unknown Jainism Affiliation Unknown Race Unknown Ethnic Group Unknown Author Name Unknown Address Unknown Organization K01:[facility] [place] [address] [place] [address] Laboratory Report Ordering Provider Test Date Status MONIKA MARTINEZ 10/08/2023 11:44:41 Final Observation Date Value Abnormality Reference (Units ) Status Uric Acid 10/08/2023 11:44:41 6.7 Above high normal 2. 4-5.7 (mg/dL) Final Performing Location [facility] - [address] [place] [address]
--- OUTSIDE RECORDS SUMMARY | 2023-12-20 21:07 | External Medical Summary | Summary of Care ---
Demographics Address [address] [address] Home Phone Email Address Preferred Language Kiswahili Marital Status Unknown Hindu Affiliation Unknown Race White Ethnic Group Not or Lati no Author Name Unknown Organization [facility] Address [address] [facility] [place] [address] Phone [phone] Care Team Providers Care Knife Changer Name Role Phone Mahogany Valentin MD Primary [...] Procedures IR BIOPSY Michelle Rodriguez MD [address] [place] [address] Referral ID Status Reason Start Date Expiration Date V isits Requested Visits Authorized [id number] Pending Review 10/07/2023 999 999 Reason for Visit * Reason Onset Date Comments Order Request 10/07/2023 Encounter Details Date Type Department Care Team (Late st Contact Info) Description 10/07/2023 Telephone Hematology/Oncology [facility] [address] [place] [address] Michelle Rodriguez MD [address] [place] [phone] Order Request Allergies No known active allergiesdocumented [...] mRNA, LNP-s, No Pre serve, 2-Dose Series ([employer]) 01/24/2021,06/29/2020,06/08/2020 COVID-19, LNP-s, No Preserve , Adam-sucrose, Ages 12+ ([employer]) 09/05/2021 COVID-19, MRNA-LNP, 23-24, P F, 30 [...] biopsy order and agreeable to going to [facility] for this. She notes that she is [...] 10:06 AM EDT IR BIOPSY [IRBIOPSY] (Order [id number] * Addendum Note - Michelle Rodriguez MD - 10/07/2023 9:52 AM EDTAddended by: MICHELLE RODRIGUEZ on: 10/07/2023 09:52 AM Modules accepted: Orders * Telephone Encounter - Michelle Rodriguez MD - 10/07/2023 9:51 AM EDT -ordered biopsy of the liver lesion. 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 We need hormonal receptor status for [...] 9:30 AM EDT Pharmacy Pharmacy Hematology Oncology [place] [address] [place] [address] [facility] [place], [facility] Hem/Onc [facility] [place] [address] 10/08/2023 11:40 AM EDT Laboratory Laboratory [facility] [place] [address] [place] [phone] [place], Lab [place] [address] [address] [place] [address] 10/08/2023 12:00 PM EDT Immunization/Injectio n Hematology/Oncology Treatment, [address] [phone] Nurse, Med [address] [place] [address] 10/22/2023 12:15 PM EDT Immunization/Injectio n Hematology/Oncology Treatment, [address] [phone] Nurse, Med [address] [place] [address] 11/12/2023 12:00 PM EDT Immunization/Injectio n Hematology/Oncology Treatment, [place] [facility] [phone] Nurse, Med [address] [place] [address] 01/07/2024 2:45 PM EDT Office Visit Hematology/Oncology [facility] [address] [facility] [place] [phone] Michelle Rodriguez MD [address] [place] [address] 03/16/2024 1:00 PM EST Office Visit Family Medicine [address] [address] Mahogany Valentin MD [address] [place] [address] [place] [address] 03/20/2024 1:30 PM EST Imaging Radiology [address] [place] [address] 04/13/2024 1:00 PM EST Nurse Only Ancillary [address] [place] [address] [place], Nurse [address] [place] [address] Scheduled Orders Name Type Priority Associated Diagnoses [...] this encounter Medical Devices Implanted Type Area Petroleum Laboratory Technician Device Identifier Shelf Expiration Date Model / Serial / Lot Port Power Mri W/8fr Cath - [id number] Implanted:Qty : 1 on 05/25/2015 by Florence Mayfield MD at [facility] Left: Subclavian CR BARD : PERIPHERAL VASCULAR 08/17/2016 [id number] / / [id number] documented as of this encounter Visit Diagnoses Diagnosis 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 breast in female, estrogen receptor positive (HCC)- Primary Metastasis to bone (HCC) Secondary malignant neoplasm of bone and bone marrow Metastasis to liver (HCC) Secondary malignant neoplasm of liver documented in this encounter Care Teams Knife Changer Relationship Specialty Start Date End Date Mahogany Valentin MD [address] [place] [address] [place] [address] PCP - General Family Medicine 01/23/17 documented as of this encounter
--- OUTSIDE RECORDS SUMMARY | 2023-12-20 21:07 | External Medical Summary ---
Author Name Unknown Address Unknown Organization K09:[facility] [place] [address] Laboratory Report Ordering Provider Test Date Status MONIKA MARTINEZ 10/08/2023 11:44:41 Final Every 2 weeks x 2 months, th en monthly Observation Date Value Abnormality Reference (Units ) Status WBC, Total 10/08/2023 11:44:41 7.33 4.00-10.8 0 (K/uL) Final RBC 10/08/2023 11:44:41 3.99 3.85-5.15 (M/uL) Final Hemoglobin 10/08/2023 11:44:41 12.0 12.0-15.3 (g/dL) Final HCT 10/08/2023 11:44:41 37.1 36.0-45.2 (%) Final MCV 10/08/2023 11:44:41 93.0 81.5-97.5 (fL) Final MCH 10/08/2023 11:44:41 30.1 27.0-34.0 (pg) Final MCHC 10/08/2023 11:44:41 32.3 32.0-36.0 (g/dL) Final RDW 10/08/2023 11:44:41 14.0 11.5-15.5 (%) Final Platelets 10/08/2023 11:44:41 224 140-400 (K /uL) Final MPV 10/08/2023 11:44:41 9.4 6.6-11.1 ( fL) Final Performing Location [facility] [place] [address]
--- OUTSIDE RECORDS SUMMARY | 2023-12-20 21:07 | External Medical Summary ---
Demographics Address [address] [facility] [address] [place] [address] Phone Unavailable Preferred Language Unknown Marital Status Unknown Scientologist Affiliation Unknown Race Unknown Ethnic Group Unknown Author Name Unknown Address Unknown Organization K01:[facility]AT[facility] - [address] [place] [address] Laboratory Report Ordering Provider Test Date Status MONIKA MARTINEZ 10/08/2023 11:44:41 Final Observation Date Value Abnormality Reference (Units ) Status LDH 10/08/2023 11:44:41 338 Above high normal <= 250 (U/L) Final Result may be falsely elevat ed due to hemolysis. Performing Location [facility] - [address] [place] [address]
--- OUTSIDE RECORDS SUMMARY | 2023-12-20 21:08 | External Medical Summary | Summary of Care ---
Demographics Address [address] [place] [address] Home Phone Email Address Preferred Language Kazakh Marital Status Unknown Rastafarian Affiliation Unknown Race White Ethnic Group Not or Lati no Author Name Unknown Organization [facility] Address [address] [address] Phone [phone] Care Team Providers Care Jewel Blocker And Sawyer Name Role Phone Mahogany Valentin MD Primary Care Provide r Reason for Visit * Reason Onset Date Comments Precert Future 09/13/2023 Faslodex, verzen io Encounter Details Date Type Department Care Team (Late st Contact Info) Description 09/13/2023 Telephone Hematology/Oncology Treatment, [place] [address] [place] [address] Michelle Rodriguez MD [address] [place] [address] Precert Future (Faslodex, verzenio) Allergies No known active allergiesdocumented as of this encounter (statuses as of 09/27/2023) Medications Medication Sig Dispensed Refills Start Date End Date Status Acetaminophen 325 MG Oral Capsule Take by mouth. Active Venlafaxine HCl ER 150 MG Oral Capsule Extended Release 24 Hour (Effexor XR) TAKE ONE CAPSULE BY MOUTH EVERY DAY 100 Capsule 1 04/03/2023 Active Pravastatin Sodium 80 MG Oral TabletIndications :Dyslipidemia, goal LDL below 160 TAKE ONE TABLET BY MOUTH EVERY DAY 90 Tablet 1 06/25/2023 Active Anastrozole 1 MG Oral Tablet (Arimidex)Indicat ions: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 breast in female, estrogen receptor positive (HCC) Take 1 Tablet by mouth in the morning. 100 Tablet 3 04/02/2023 09/13/2023 Discontinued (Medication List Clean Up) Apixaban 5 MG Oral Tablet (Eliquis) Take 1 Tablet by mouth in the morning and 1 Tablet before bedtime. 09/18/2023 Discontinued (Refill) documented as of this encounter (statuses as of 09/27/2023) Active Problems Problem Noted Date Diagnosed Date [...] as of this encounter (statuses as of 09/27/2023) Resolved Problems Problem Noted Date Diagnosed Date [...] as of this encounter (statuses as of 09/27/2023) Immunizations Name Administration Dates Next Due COVID-19 mRNA, LNP-s, No Pre serve, 2-Dose Series ([employer]) 01/24/2021,06/29/2020,06/08/2020 COVID-19, LNP-s, No Preserve , Adam-sucrose, Ages 12+ ([employer]) 09/05/2021 COVID-19, MRNA-LNP, 23-24, P F, 30 MCG/0.3 mL, 12 YRS AND ABOVE, IM ([facility]) 01/16/2023 Covid-19, Mrna, Lnp-s, Pf, B ivalent, 30 Mcg, IM, 12 yrs and above ([employer]) 01/09/2022 PPD 02/25/2003 Pneumococcal Conjugate Vacc, 13 [...] Telephone Encounter - Katrina Randhawa RN - 09/27/2023 3:13 PM EDT Referral entered for zometa, waiting for PFC review/ phosphorus to improve. * Telephone Encounter - Katrina Randhawa RN - 09/27/2023 2:20 PM EDT [place] plan for zometa built. Waiting for auth. Patient aware of order change (had discussed possibility at nurse visit, also sent MyG) Patient will need estimated OOP cost and improved phos level before scheduling. * Addendum Note - Michelle Rodriguez MD - 09/27/2023 1:41 PM EDTAddended by: MICHELLE RODRIGUEZ on: 09/27/2023 01:41 PM Modules accepted: Orders * Telephone Encounter - Michelle Rodriguez MD - 09/27/2023 1:41 PM EDT Ordered Zometa 4 mg every 4 weekly in her case * Telephone Encounter - Katrina Randhawa RN - 09/27/2023 11:52 AM EDT Reviewed with Dr Rodriguez- due to copay can switch xgeva to zometa. Dr Rodriguez: please place order for this. Thanks! * Telephone Encounter - Katrina Randhawa RN - 09/25/2023 7:38 AM EDT Per P notes, verzenio is being shipped 09/25. * Telephone Encounter - Katrina Randhawa RN - 09/24/2023 12:17 PM EDT Nurse education complete. - Patient cannot afford xgeva copay- will need to talk to Dr Rodriguez about zometa, if we cannot switch to zometa patient can call PFC to discuss financial assistance - Patient has not started phosphorus supplement. Printed out copy of rx, she will bring this to pharmacy to have them help her find OTC product since it is not covered by insurance. Advised her that we cannot start xgeva or zometa until phos is back to normal. - Patient last saw the dentist 11/2022. She had an appt in May, but was called prior and told they no longer accept her insurance. She will see her new dentist 10/2023. Denies any dental issues at thistime - Copay for faslodex estimated to be $46.38. Patient agreeable to that and will get that today - Patient was approved for PACE. PACE card scanned into chart. GSP: patient approved for PACE- is verzenio able to be filled now? * Telephone Encounter - Katrina Randhawa RN - 09/23/2023 11:32 AM EDT Referral entered for xgeva. Phos was low in 09/13/23 lab work. Will need to review with patient at education visit to ensure sheis taking phos supplement/ confirm dental status- xgeva can be scheduled with subsequent injection appt. * Telephone Encounter - Katrina Randhawa RN - 09/18/2023 10:58 AM EDT Referral entered for verzenio, can be filled at [facility]. Rx was not sent- sent to provider in other encounter. * Telephone Encounter - Gauri Emmanuel OSA - 09/18/2023 10:57 AM EDT Pt is scheduled but is asking about Apixaban 5 MG Oral Tablet (Eliquis) [[id number]] (Order [id number]) She was asking if this got sent to mail order with [employer] * Telephone Encounter - Gauri Emmanuel OSA - 09/18/2023 9:03 AM EDT Left message x2 * Telephone Encounter - Gauri Emmanuel OSA - 09/17/2023 9:38 AM EDT Left message * Telephone Encounter - Ramsey Wilson RN - 09/17/2023 9:29 AM EDT Scheduling- Please call patient to schedule 1 hour nurse education visit with 15 min apt "Faslodex"(Dr. Rodriguez) afterward. * Telephone Encounter - Katrina Randhawa RN - 09/13/2023 2:40 PM EDT Referral entered for faslodex. * Telephone Encounter - Katrina Randhawa RN - 09/13/2023 10:38 AM EDT Order received for verzenio, faslodex, xgeva. [place] plan built. Waiting for auth. Consent signed 09/13/23. Order forwarded to [facility]. Patient is going for hep B labs today. Nurse education not scheduled, can call patient to see if she wants in person education or info mailed/ reviewed by phone. Dr Rodriguez wants faslodex to start next week. Will need to confirm dental status. documented in this encounter Plan of Treatment Upcoming Encounters Date Type Department Care Team (Late st Contact Info) Description 10/04/2023 9:45 AM EDT Pharmacy Pharmacy Hematology Oncology [address] [address] [facility] [place] Clinic Hem/Onc [facility] [place] [address] 10/08/2023 12:00 PM EDT Immunization/Inject ion Hematology/Oncology Treatment, [place] [address] [place] [phone] Nurse, Med [address] [facility] [address] [place] [address] 10/22/2023 12:15 PM EDT Immunization/Inject ion Hematology/Oncology Treatment, [address] [place] [phone] Nurse, Med 4 [address] [facility] [place] [address] 11/12/2023 12:00 PM EDT Immunization/Inject ion Hematology/Oncology Treatment, [address], [place] [phone] Nurse, Med 4 [address] [facility] [place] [address] 01/07/2024 2:45 PM EDT Office Visit Hematology/Oncology [facility] [address] [facility] [place] [phone] Michelle Rodriguez MD [address] [place] [address] 03/16/2024 1:00 PM EST Office Visit Family Medicine [address] [place] [phone] Mahogany Valentin MD [address] [place] [address] [place] [address] 03/20/2024 1:30 PM EST Imaging Radiology [address] [place] [address] 04/13/2024 1:00 PM EST Nurse Only Ancillary [address] [place] [address] Nurse [place] [place] [address] Health Maintenance Due Date Last Done Comments [...] this encounter Medical Devices Implanted Type Area Production Supv Device Identifier Shelf Expiration Date Model / Serial / Lot Port Power Mri W/8fr Cath - [id number] Implanted:Qty : 1 on 05/25/2015 by Florence Mayfield MD at [facility] Left: Subclavian CR BARD : PERIPHERAL VASCULAR 08/17/2016 [id number] / / [id number] documented as of this encounter Visit Diagnoses Diagnosis 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 breast in female, estrogen receptor positive (HCC)- Primary Metastasis to bone (HCC) Secondary malignant neoplasm of bone and bone marrow Peritoneal carcinomatosis (HCC) Malignant neoplasm of peritoneum, unspecified Metastasis to liver (HCC) Secondary malignant neoplasm of liver documented in this encounter Care Teams Jewel Blocker And Sawyer Relationship Specialty Start Date End Date Mahogany Valentin MD [address] [place] [address] [place] [address] PCP - General Family Medicine 01/23/17 documented as of this encounter
--- OUTSIDE RECORDS SUMMARY | 2023-12-20 21:08 | External Medical Summary | Summary of Care ---
Demographics Address [address] [address] Home Phone Email Address Preferred Language Slovak Marital Status Unknown Cheondoism Affiliation Unknown Race White Ethnic Group Not or Lati no Author Name Unknown Organization [facility] Address [address] [facility] [address] Phone [phone] Care Team Providers Care Riveter Pneumatic Name Role Phone Mahogany Valentin MD Primary Care Provide r Reason for Visit * Reason Onset Date Comments Precert Future 09/13/2023 Faslodex, verzen io Encounter Details Date Type Department Care Team (Late st Contact Info) Description 09/13/2023 Telephone Hematology/Oncology Treatment, [place] [address] [place] [address] Michelle Rodriguez MD [address] [place] [address] Precert Future (Faslodex, verzenio) Allergies No known active allergiesdocumented as of this encounter (statuses as of 10/01/2023) Medications Medication Sig Dispensed Refills Start Date [...] as of this encounter (statuses as of 10/01/2023) Active Problems Problem Noted Date Diagnosed Date [...] as of this encounter (statuses as of 10/01/2023) Resolved Problems Problem Noted Date Diagnosed Date [...] as of this encounter (statuses as of 10/01/2023) Immunizations Name Administration Dates Next Due COVID-19 mRNA, LNP-s, No Pre serve, 2-Dose Series ([employer]) 01/24/2021,06/29/2020,06/08/2020 COVID-19, LNP-s, No Preserve , Adam-sucrose, Ages 12+ ([employer]) 09/05/2021 COVID-19, MRNA-LNP, 23-24, P F, 30 MCG/0.3 mL, 12 YRS AND ABOVE, IM ([facility]) 01/16/2023 Covid-19, Mrna, Lnp-s, Pf, B ivalent, 30 Mcg, IM, 12 yrs and above ([employer]) 01/09/2022 PPD 02/25/2003 Pneumococcal Conjugate Vacc, 13 [...] Randhawa RN - 09/27/2023 2:20 PM EDT [place] plan for zometa built. Waiting for auth. [...] entered for verzenio, can be filled at [facility]. Rx was not sent- sent to provider in other encounter. * Telephone Encounter - Gauri Emmanuel OSA - 09/18/2023 10:57 AM EDT Pt is scheduled but is asking about Apixaban 5 MG Oral Tablet (Eliquis) [[id number]] (Order [id number]) She was asking if this got sent to mail order with [employer] * Telephone Encounter - Gauri Emmanuel OSA [...] EDT Order received for verzenio, faslodex, xgeva. [place] plan built. Waiting for auth. Consent signed 09/13/23. Order forwarded to [facility]. Patient is going for hep B [...] 9:45 AM EDT Pharmacy Pharmacy Hematology Oncology [place] [address] [place] [address] [facility] Clinic Hem/Onc [address] [place] [address] 10/08/2023 11:40 AM EDT Laboratory Laboratory [place] [address] [facility] [place] [phone] [facility] [place] [address] [facility] [place], [place] [address] 10/08/2023 12:00 PM EDT Immunization/Injectio n Hematology/Oncology Treatment, [place] [address] [facility], [place] [phone] Nurse, Med 4 [address] [facility] [place] [address] 10/22/2023 12:15 PM EDT Immunization/Injectio n Hematology/Oncology Treatment, [place] [address] [facility], [place] [phone] Nurse, Med 4 [address] [facility] [place] [address] 11/12/2023 12:00 PM EDT Immunization/Injectio n Hematology/Oncology Treatment, [place] [address] [facility], [place] [phone] Nurse, Med 4 [address] [facility] [place] [address] 01/07/2024 2:45 PM EDT Office Visit Hematology/Oncology [facility] [place] [address] [place] [phone] Michelle Rodriguez MD [address] [facility] [address] [place], [place] [address] 03/16/2024 1:00 PM EST Office Visit Family Medicine [address] [place] [phone] Mahogany Valentin MD [address] [place] [address] [place] [address] 03/20/2024 1:30 PM EST Imaging Radiology [address] [place] [address] 04/13/2024 1:00 PM EST Nurse Only Ancillary [address] [place] [address] [place], Nurse [address] [place] [address] Health Maintenance Due Date Last Done Comments [...] this encounter Medical Devices Implanted Type Area Outpatient Services Director Device Identifier Shelf Expiration Date Model / Serial / Lot Port Power Mri W/8fr Cath - [id number] Implanted:Qty : 1 on 05/25/2015 by Florence Mayfield MD at OR [facility] Left: Subclavian CR BARD : PERIPHERAL VASCULAR 08/17/2016 [id number] / / [id number] documented as of this encounter Visit Diagnoses Diagnosis 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 breast in female, estrogen receptor positive (HCC)- Primary Metastasis to bone (HCC) Secondary malignant neoplasm of bone and bone marrow Peritoneal carcinomatosis (HCC) Malignant neoplasm of peritoneum, unspecified Metastasis to liver (HCC) Secondary malignant neoplasm of liver documented in this encounter Care Teams Riveter Pneumatic Relationship Specialty Start Date End Date Mahogany Valentin MD [address] [place] [address] [place] [phone] PCP - General Family Medicine 01/23/17 documented as of this encounter
--- OUTSIDE RECORDS SUMMARY | 2023-12-20 21:08 | External Medical Summary | Summary of Care ---
Demographics Address [address] [place] [address] Home Phone Email Address Preferred Language Yoruba Marital Status Unknown Episcopal Affiliation Unknown Race White Ethnic Group Not or Lati no Author Name Unknown Organization [facility] Address [address] [facility] [address] Phone [phone] Care Team Providers Care Latex Ribbon Machine Operator Name Role Phone Mahogany Valentin MD Primary Care Provide r Reason for Visit * Reason Onset Date Comments Precert Future 09/13/2023 Faslodex, verzen io Encounter Details Date Type Department Care Team (Late st Contact Info) Description 09/13/2023 Telephone Hematology/Oncology Treatment, [place] [address] [place] [address] Morales Rodriguez MD [address] [place] [address] Precert Future (Faslodex, verzenio) Allergies No known [...] mRNA, LNP-s, No Pre serve, 2-Dose Series ([employer]) 01/24/2021,06/29/2020,06/08/2020 COVID-19, LNP-s, No Preserve , Adam-sucrose, Ages 12+ ([employer]) 09/05/2021 COVID-19, MRNA-LNP, 23-24, P F, 30 MCG/0.3 mL, 12 YRS AND ABOVE, IM ([facility]) 01/16/2023 Covid-19, Mrna, Lnp-s, Pf, B ivalent, 30 Mcg, IM, 12 yrs and above ([employer]) 01/09/2022 PPD 02/25/2003 Pneumococcal Conjugate Vacc, 13 [...] RN - 09/25/2023 7:38 AM EDT Per [facility] notes, verkristiio is being shipped 09/25. * Telephone Encounter [...] entered for verzenio, can be filled at [facility]. Rx was not sent- sent to provider in other encounter. * Telephone Encounter - Gauri Emmanuel OSA - 09/18/2023 10:57 AM EDT Pt is scheduled but is asking about Apixaban 5 MG Oral Tablet (Eliquis) [[id number]] (Order [id number]) She was asking if this got sent to mail order with jasoner * Telephone Encounter - Gauri Emmanuel OSA [...] EDT Order received for verzenio, faslodex, xgeva. [place] plan built. Waiting for auth. Consent signed 09/13/23. Order forwarded to [facility]. Patient is going for hep [...] 9:45 AM EDT Pharmacy Pharmacy Hematology Oncology [facility] [address] [place] [address] [facility], [facility] Hem/Onc [address] [place] [address] 10/08/2023 12:00 PM EDT Immunization/Inject ion Hematology/Oncology Treatment, [address] [place] [phone] Nurse, Med 4 200 [facility] [place] [address] 10/22/2023 12:15 PM EDT Immunization/Inject ion Hematology/Oncology Treatment, [address] [place] [phone] Nurse, Med 4 200 [facility] [place] [address] 11/12/2023 12:00 PM EDT Immunization/Inject ion Hematology/Oncology Treatment, [address] [place] [phone] Nurse, Med 4 200 [facility] [place] [address] 01/07/2024 2:45 PM EDT Office Visit Hematology/Oncology [facility] [address] [place] [phone] Morales Rodriguez MD [address] [place] [address] [place] [address] 03/16/2024 1:00 PM EST Office Visit Family Medicine [address] [phone] Mahogany Valentin MD [address] [place] [address] [place] [address] 03/20/2024 1:30 PM EST Imaging Radiology [address] [place] [address] 04/13/2024 1:00 PM EST Nurse Only Ancillary [address] [place] [address] [place], Nurse Annual Wellness [address] [place] [address] [place] [address] Health Maintenance Due Date Last Done Comments [...] this encounter Medical Devices Implanted Type Area Phlebotomy Lab Assistant Device Identifier Shelf Expiration Date Model / Serial / Lot Port Power Mri W/8fr Cath - [id number] Implanted:Qty : 1 on 05/25/2015 by Florence Mayfield MD at OR [facility] Left: Subclavian CR BARD : PERIPHERAL VASCULAR 08/17/2016 [id number] / / [id number] documented as of this encounter Care Teams Latex Ribbon Machine Operator Relationship Specialty Start Date End Date Mahogany Valentin MD [address] [place] [address] [place] [phone] PCP - General Family Medicine 01/23/17 documented as of this encounter
--- OUTSIDE RECORDS SUMMARY | 2023-12-20 21:08 | External Medical Summary | Summary of Care ---
Demographics Address [address] [place] [address] Home Phone Email Address Preferred Language Armenian Marital Status Unknown Quaker Affiliation Unknown Race White Ethnic Group Not or Lati no Author Name Unknown Organization [facility] Address [address] [facility] [place] [address] Phone [phone] Care Team Providers Care Lamp Decorator Name Role Phone Mahogany Valentin MD Primary [...] Procedures IR BIOPSY Michelle Rodriguez MD [address] [facility] [address] Referral ID Status Reason Start Date Expiration Date V isits Requested Visits Authorized [id number] Pending Review 10/07/2023 999 999 Reason for Visit * Reason Onset Date Comments Order Request 10/07/2023 Encounter Details Date Type Department Care Team (Late st Contact Info) Description 10/07/2023 Telephone Hematology/Oncology [facility] [address] [place] [address] Michelle Rodriguez MD [address] [facility] [address] [place] [phone] Order Request Allergies No known active allergiesdocumented [...] mRNA, LNP-s, No Pre serve, 2-Dose Series ([employer]) 01/24/2021,06/29/2020,06/08/2020 COVID-19, LNP-s, No Preserve , Adam-sucrose, Ages 12+ ([employer]) 09/05/2021 COVID-19, MRNA-LNP, 23-24, P F, 30 [...] encounter Miscellaneous Notes * Addendum Note - Michelle Rodriguez MD [...] negative and there was some quality control inspector issues. We need hormonal receptor status for [...] 9:30 AM EDT Pharmacy Pharmacy Hematology Oncology [facility] [address] [place] [address] [facility], [facility] Hem/Onc [address] [place] [address] 10/08/2023 11:40 AM EDT Laboratory Laboratory [facility] [address] [place], [place] [phone] [place] [facility] [address] [facility], [place] [address] 10/08/2023 12:00 PM EDT Immunization/Injectio n Hematology/Oncology Treatment, [address], [place] [phone] Nurse, Med 4 [address] [facility] [place] [address] 10/22/2023 12:15 PM EDT Immunization/Injectio n Hematology/Oncology Treatment, [address], [place] [phone] Nurse, Med 4 [address] [facility] [place] [address] 11/12/2023 12:00 PM EDT Immunization/Injectio n Hematology/Oncology Treatment, [address], [place] [phone] Nurse, Med 4 [address] [facility] [place] [address] 01/07/2024 2:45 PM EDT Office Visit Hematology/Oncology [facility] [address] [place], [place] [phone] Michelle Rodriguez MD [address] [place], [place] [address] 03/16/2024 1:00 PM EST Office Visit Family Medicine [address] [place] [phone] Mahogany Valentin MD [address] [place] [address] [place] [address] 03/20/2024 1:30 PM EST Imaging Radiology [address] [place] [address] 04/13/2024 1:00 PM EST Nurse Only Ancillary [address] [place] [address] [place], Nurse [address] [place] [address] Scheduled Orders Name Type Priority Associated Diagnoses [...] this encounter Medical Devices Implanted Type Area Advertising Sales Agent Device Identifier Shelf Expiration Date Model / Serial / Lot Port Power Mri W/8fr Cath - [id number] Implanted:Qty : 1 on 05/25/2015 by Florence Mayfield MD at OR [facility] Left: Subclavian CR BARD : PERIPHERAL VASCULAR 08/17/2016 [id number] / / [id number] documented as of this encounter Visit Diagnoses Diagnosis 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 breast in female, estrogen receptor positive (HCC)- Primary Metastasis to bone (HCC) Secondary malignant neoplasm of bone 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
--- OUTSIDE RECORDS SUMMARY | 2023-12-20 21:08 | External Medical Summary | Summary of Care ---
Demographics Address [address] [place] [address] Home Phone Email Address Preferred Language Icelandic Marital Status Unknown Judaism Affiliation Unknown Race White Ethnic Group Not or Lati no Author Name Unknown Organization [facility] Address [address] [place] [address] Phone [phone] Care Team Providers Care Sterile Proc Tech Name Role Phone Mahogany Valentin MD Primary Care Provide r Reason for Visit * Reason Comments Medication Management Encounter Details Date Type Department Care Team (Late st Contact Info) Description 10/04/2023 9:45 AM EDT Pharmacy Pharmacy Hematology Oncology [facility] [address] [place] [address] [facility] Hem/Onc [address] [place] [address] 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 breast in female, estrogen receptor positive (HCC)* Allergies No known active allergiesdocumented as of this encounter (statuses as of 10/04/2023) Medications Medication Sig Dispensed Refills Start Date [...] as of this encounter (statuses as of 10/04/2023) Active Problems Problem Noted Date Diagnosed Date [...] as of this encounter (statuses as of 10/04/2023) Resolved Problems Problem Noted Date Diagnosed Date [...] as of this encounter (statuses as of 10/04/2023) Immunizations Name Administration Dates Next Due COVID-19 mRNA, LNP-s, No Pre serve, 2-Dose Series ([employer]) 01/24/2021,06/29/2020,06/08/2020 COVID-19, LNP-s, No Preserve , Adam-sucrose, [...] as of this encounter Progress Notes * Monalisa Torres, [facility] - 10/04/2023 5:16 PM EDT MEDICATION THERAPY MANAGEMENT ABEMACICLIB TREATMENT EDUCATION NOTE Kianna Juliana Raymundo [phone] Patient Phone Numbers Preferred Lab: [facility] [place] Communication: Left message requesting return call to assess toleration to therapy Treatment: Medication: Abemaciclib (Verzenio) Indication/Staging/Diagnosis Code: ER+/OR-/HER2- breast cancer / Stage IIB / C50.412 Dose: 150mg BID Administration: +/- food Start Date: 09/30/23 (tentative) Primary Tire Care Manager/Oncologist: Dr. Otilia Rodriguez Supportive Care Meds: Fulvestrant Xgeva Ondansetron Prophylactic Meds: See anticoagulation below Relevant Chronic Medications: Category Medications Pertinent Notes Anticoagulation Apixaban 5mg BID Pt hx Treatment History: 05/04/15: lumpectomy with SLNB 2016: adjuvant AC + Taxol 04/2016-08/2017; 04/11/18-08/2023: anastrozole Interval History: N/A Changes to medication list since last visit? N/A Assessment and Plan: Left VM to confirm start of therapy and tolerability MTM to follow up 10/07 with toxicity check and labs Assessment of compliance: N/A Assessment of adverse effects attributed to drug therapy: N/A Dose adjustment needed based on lab or adverse drug reaction? N/A Follow up: 10/07 Monalisa Torres, CarlosD, BCOP Clinical Pharmacist [facility] 10/04/2023, 5:21 PM Monitoring Parameters: Estimated CrCl Serum creatinine: 1.1 mg/dL (H) 09/13/23 1032 Estimated creatinine clearance: 38.8 mL/min (A) Hepatitis panel Latest Reference Range [...] monitoring - Medication Requires monitoring Pharmacist Intervention(s): Toxicity monitoring Magnitude of Intervention: Monitoring with direction (Level 1) documented in this encounter Plan of Treatment Upcoming Encounters Date Type Department Care Team (Late st Contact Info) Description 10/08/2023 9:30 AM EDT Pharmacy Pharmacy Hematology Oncology [facility] [address] [place] [address] [facility] Hem/Onc [address] [place] [address] 10/08/2023 11:40 AM EDT Laboratory Laboratory [facility] [place] [address] [address] [place] [phone] [place], Lab [place] [address] [address] [place] [address] 10/08/2023 12:00 PM EDT Immunization/Injectio n Hematology/[address]cology [address], [address] [phone] Nurse, Med 4 [address] [place] [address] 10/22/2023 12:15 PM EDT Immunization/Injectio n Hematology/Oncology [address], [address] [phone] Nurse, Med 4 [address] [place] [address] 11/12/2023 12:00 PM EDT Immunization/Injectio n Hematology/Oncology [address], [address] [phone] Nurse, Med 200 [facility] [place] [address] 01/07/2024 2:45 PM EDT Office Visit Hematology/Oncology [facility] [place] [address] [facility] [place] [phone] Morales Rodriguez MD [address] [facility] [place] [address] 03/16/2024 1:00 PM EST Office Visit Family Medicine [address] [place] [phone] Mahogany Valentin MD [address] [place] [address] [place] [address] 03/20/2024 1:30 PM EST Imaging Radiology [address] [place] [address] 04/13/2024 1:00 PM EST Nurse Only Ancillary [address] [place] [address] [place], Nurse Annual [address] [place] [address] Health Maintenance Due Date Last Done Comments [...] this encounter Medical Devices Implanted Type Area Sales Force Developer Device Identifier Shelf Expiration Date Model / Serial / Lot Port Power Mri W/8fr Cath - [id number] Implanted:Qty : 1 on 05/25/2015 by Florence Mayfield MD at OR [facility] Left: Subclavian CR BARD : PERIPHERAL VASCULAR 08/17/2016 [id number] / / [id number] documented as of this encounter Visit Diagnoses Diagnosis 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 breast in female, estrogen receptor positive (HCC)- Primary documented in this encounter Care Teams Sterile Proc Tech Relationship Specialty Start Date End Date Mahogany Valentin MD [address] [place] [address] [place] [address] PCP - General Family Medicine 01/23/17 documented as of this encounter
--- OUTSIDE RECORDS SUMMARY | 2023-12-20 21:08 | External Medical Summary | Summary of Care ---
Demographics Address [address] [place] [address] Home Phone Email Address Preferred Language Syriac Marital Status Unknown Quaker Affiliation Unknown Race White Ethnic Group Not or Lati no Author Name Unknown Organization [facility] Address [address] [place] [address] Phone [phone] Care Team Providers Care Sterile Instrument Technician Name Role Phone Mahogany Valentin MD Primary Care Provide r Reason for Visit * Reason Comments Medication Management Encounter Details Date Type Department Care Team (Late st Contact Info) Description 09/25/2023 1:45 PM EDT Pharmacy Pharmacy Hematology Oncology [facility] [address] [place] [address] [facility], [facility] Hem/Onc [address] [place] [address] 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 breast in female, estrogen receptor positive (HCC)* Allergies No known active allergiesdocumented as of this encounter (statuses as of 09/26/2023) Medications Medication Sig Dispensed Refills Start Date [...] as of this encounter (statuses as of 09/26/2023) Active Problems Problem Noted Date Diagnosed Date [...] as of this encounter (statuses as of 09/26/2023) Resolved Problems Problem Noted Date Diagnosed Date [...] as of this encounter (statuses as of 09/26/2023) Immunizations Name Administration Dates Next Due COVID-19 mRNA, LNP-s, No Pre serve, 2-Dose Series ([employer]) 01/24/2021,06/29/2020,06/08/2020 COVID-19, LNP-s, No Preserve , Adam-sucrose, [...] this encounter Progress Notes * Jenny Otto, [facility] - 09/25/2023 10:47 AM EDT MEDICATION THERAPY MANAGEMENT ABEMACICLIB TREATMENT EDUCATION NOTE Kianna Andrews Zackary [phone] Patient Phone Numbers Preferred Lab: [facility] [place] [facility] ([facility] copy below into specialty comments) Treatment consent complete: yes Date: 09/13/23 Precertification complete: yes Date: 09/18/23 Communication: Spoke to: Patient Treatment: Medication: Abemaciclib (Verzenio) Indication/Staging/Diagnosis Code: ER+/CA-/HER2- breast cancer / Stage IIB / C50.412 Dose: 150mg BID Administration: +/- food Start Date: 09/30/23 (tentative) Primary Burglar Alarm Inspector/Oncologist: Dr. Otilia Rodriguez Supportive Care Meds: Fulvestrant Xgeva Ondansetron Prophylactic Meds: See anticoagulation below Relevant Chronic Medications: Category Medications Pertinent Notes Anticoagulation Apixaban 5mg BID Pt hx Treatment History: 05/04/15: lumpectomy with SLNB 2016: adjuvant AC + Taxol 04/2016-08/2017; 04/11/18-08/2023: anastrozole Medication education: Confirmed pt has received information regarding goals and duration of therapy: yes Reviewed dosing and administration: yes Reviewed importance of medication compliance (document recommendations if barriers identified): yes Reviewed appropriate storage conditions: yes Reviewed handling precautions: yes Reviewed handling body fluids and waste: yes Reviewed side effects, monitoring, and supportive care measures: yes Nausea/Vomiting This medication may cause nausea or vomiting Low/Minimal emetic risk: Zofran/Compazine PRN, but if consistently nauseated, can administer [id number] minutes prior to chemotherapy Dietary modifications: avoid spicy, greasy, fatty foods If vomiting, increase water intake to avoid dehydration When to call clinic: N/V refractory to antiemetics or if unable to keep up with oral intake Diarrhea/Dehydration This medication can cause loose stools You can purchase OTC loperamide (Imodium A-D) to help manage this side effect (4 mg x 1, followed by 2 mg Q4H or after every loose stool, not to exceed 16 mg/day) Drink plenty of fluids to prevent dehydration, ideally 8-10 glasses per day (unless a healthcare provider has instructed you to limit your fluid intake due to other health conditions) Dietary modifications: eat bland, low fiber foods such as bananas, rice, applesauce, and toast (BRAT diet), avoid dairy, avoid spicy, greasy or fatty foods When to call clinic: If approaching maximum dose of loperamide and still having diarrhea or if you have any s/sx of dehydration; if there is a concern for infectious diarrhea (especially in setting of neutropenia) Fatigue You may be more tired than usual or have less energy Stay as active as possible, but know it is okay to rest as needed Try to do some activity every day Plan activities at a time of day when you feel more energetic Symptoms of DVT/PE This medication may increase your risk of developing a blood clot Contact clinic or seek emergency help immediately if you develop pain, swelling, or warmth in your calf or leg or new onset or worsening shortness of breath ILD/Pneumonitis This medication can rarely cause inflammation of the lung tissue. Monitor for and report any of the following symptoms: Shortness of breath Dry cough Fevers Chest pain that worsens with breathing Elevated creatinine This medication may affect your kidney function Review plan for lab monitoring (drug-specific) Monitor and report symptoms such as: Decreased amount of urination Unusual swelling in your legs and/or feet Confirmed pt has received written information about drug therapy: yes Changes to medication list since last visit: no Drug interaction assessment: Treatment plan and current medication list evaluated for drug-drug interactions. No clinically significant drug interaction identified Does patient rely on caregiver for medication management? Yes, sister Assessment and plan: Pt verbalized understanding to information provided. All questions answered to the patient's satisfaction Pt was educated about role of Oral Chemotherapy Clinic and pharmacist in medication management, andplan for follow up. Hepatitis B panel unremarkable - no further action needed Per [facility] encounter 09/24/23, abemaciclib to ship 09/26/23. Advised pt to delay start until office reopens 09/30/23 MTM to follow up in 1 week to confirm start date and tolerability Follow up: 1 week Jenny Otto, PharmD, BCOP Clinical Pharmacist, [facility] Oral Chemotherapy [facility] 09/26/2023, 3:08 PM Monitoring Parameters: Estimated CrCl Serum creatinine: [...] Pertinent labs: N/A Time Spent on Encounter: 16 - 20 minutes Encounter Group: Oncology Encounter Interventions Item Category: Oral Chemotherapy Abemaciclib Problem/Rationale: Indication: Needs additional medication therapy - Untreated condition Education: Initial education Pharmacist Intervention(s): Education provided and Lab monitoring Magnitude of Intervention: Monitoring with direction (Level 1) Electronically signed by Jenny Otto [facility] at 09/26/2023 3:09 PM EDT documented in this encounter Plan of Treatment Upcoming Encounters Date Type Department Care Team (Late st Contact Info) Description 10/04/2023 9:45 AM EDT Pharmacy Pharmacy Hematology Oncology [place] [address] [place] [address] [facility], [facility] Hem/Onc [address] [place] [address] 10/08/2023 12:00 PM EDT Immunization/Inject ion Hematology/Oncology Treatment, [place] [address] [facility], [place] [phone] Nurse, Med 4 [address] [place] [address] 10/22/2023 12:15 PM EDT Immunization/Inject ion Hematology/Oncology Treatment, [place] [facility] [phone] Nurse, Med 4 200 [address] [place] [address] 11/12/2023 12:00 PM EDT Immunization/Inject ion Hematology/Oncology Treatment, [place] [facility] [phone] Nurse, Med 200 [facility] [place] [address] 01/07/2024 2:45 PM EDT Office Visit Hematology/Oncology [facility] [address] [facility] [place] [phone] Morales Rodriguez MD 200 [facility] [place] [address] 03/16/2024 1:00 PM EST Office Visit Family Medicine [address] [phone] Mahogany Valentin MD [address] [place] [address] [place] [address] 03/20/2024 1:30 PM EST Imaging Radiology [address] [place] [address] 04/13/2024 1:00 PM EST Nurse Only Ancillary [address] [place] [address] [place], Nurse Annual [address] [place] [address] Health Maintenance Due Date Last Done Comments [...] this encounter Medical Devices Implanted Type Area Audio Production Instructor Device Identifier Shelf Expiration Date Model / Serial / Lot Port Power Mri W/8fr Cath - [id number] Implanted:Qty : 1 on 05/25/2015 by Florence [place] MD at [facility] Left: Subclavian CR BARD : PERIPHERAL VASCULAR 08/17/2016 [id number] / / [id number] documented as of this encounter Visit Diagnoses Diagnosis 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 breast in female, estrogen receptor positive (HCC)- Primary documented in this encounter Care Teams Sterile Instrument Technician Relationship Specialty Start Date End Date Mahogany Valentin MD [address] [place] [address] [place] [address] PCP - General Family Medicine 01/23/17 documented as of this encounter
--- OUTSIDE RECORDS SUMMARY | 2023-12-20 21:08 | External Medical Summary | Summary of Care ---
Demographics Address [address] [place] [address] Home Phone Email Address Preferred Language Yi Marital Status Unknown Judaism Affiliation Unknown Race White Ethnic Group Not or Lati no Author Name Unknown Organization [facility] Address [address] [facility] [facility] [address] Phone [phone] Care Team Providers Care Toe Sewer Name Role Phone Mahogany Valentin MD Primary Care Provide r Reason for Visit * Reason Onset Date Comments Precert Future 09/13/2023 Faslodex, verzen io Encounter Details Date Type Department Care Team (Late st Contact Info) Description 09/13/2023 Telephone Hematology/Oncology Treatment, [place] [address] [place] [address] Michelle Rodriguez MD [address] [place] [address] Precert Future (Faslodex, verzenio) Allergies No known [...] mRNA, LNP-s, No Pre serve, 2-Dose Series ([employer]) 01/24/2021,06/29/2020,06/08/2020 COVID-19, LNP-s, No Preserve , Adam-sucrose, Ages 12+ ([facility] [employer]) 09/05/2021 COVID-19, MRNA-LNP, 23-24, P F, 30 MCG/0.3 mL, 12 YRS AND ABOVE, IM ([facility]) 01/16/2023 Covid-19, Mrna, Lnp-s, Pf, B ivalent, 30 Mcg, IM, 12 yrs and above ([employer]) 01/09/2022 PPD 02/25/2003 Pneumococcal Conjugate Vacc, 13 [...] RN - 09/25/2023 7:38 AM EDT Per [facility] notes, verzenio is being shipped 09/25. * [...] entered for verzenio, can be filled at [facility]. Rx was not sent- sent to provider in other encounter. * Telephone Encounter - Gauri Emmanuel OSA - 09/18/2023 10:57 AM EDT Pt is scheduled but is asking about Apixaban 5 MG Oral Tablet (Eliquis) [[id number]] (Order [id number]) She was asking if this got sent to mail order with [employer] * Telephone Encounter - Gauri Emmanuel OSA - 09/18/2023 9:03 AM EDT Left message x2 * Telephone Encounter - Gauri Emmanuel OSA - 09/17/2023 9:38 AM EDT Left message * Telephone Encounter - Ramsey Wilson RN - 09/17/2023 9:29 AM EDT Scheduling- Please call patient to schedule 1 hour nurse education visit with 15 min apt "Kyraodex"(Dr. Rodriguez) afterward. * Telephone Encounter - Katrina Randhawa RN - 09/13/2023 2:40 PM EDT Referral entered for faslodex. * Telephone Encounter - Katrina Randhawa RN - 09/13/2023 10:38 AM EDT Order received for verzenio, faslodex, xgeva. [place] plan built. Waiting for auth. Consent signed 09/13/23. Order forwarded to [facility]. Patient is going for hep B labs [...] 9:45 AM EDT Pharmacy Pharmacy Hematology Oncology [facility] [address] [place] [address] [facility] [place] Hem[facility]Onc [address] [place] [address] 10/08/2023 12:00 PM EDT Immunization/Inject ion Hematology/Oncology Treatment, [address], [place] [phone] Nurse, Med 4 [address] [place] [address] 10/22/2023 12:15 PM EDT Immunization/Inject ion Hematology/Oncology Treatment, [address] [address] Nurse, Med [address] [place] [address] 11/12/2023 12:00 PM EDT Immunization/Inject ion Hematology/Oncology Treatment, [address] [phone] Nurse, Med [address] [place] [address] 01/07/2024 2:45 PM EDT Office Visit Hematology/Oncology [employer] 200 [facility] [place] [phone] Michelle Rodriguez MD 200 [facility] [place] [address] 03/16/2024 1:00 PM EST Office Visit Family Medicine [address] [place] [address] Mahogany Valentin MD [address] [place] [address] [place] [address] 03/20/2024 1:30 PM EST Imaging Radiology [address] [place] [address] 04/13/2024 1:00 PM EST Nurse Only Ancillary [address] [place] [address] [place], Nurse Annual Wellness [address] [place] [address] [place] [address] Health Maintenance Due Date Last Done Comments [...] this encounter Medical Devices Implanted Type Area Blade Balancer Device Identifier Shelf Expiration Date Model / Serial / Lot Port Power Mri W/8fr Cath - [id number] Implanted:Qty : 1 on 05/25/2015 by Florence Mayfield MD at [facility] Left: Subclavian CR BARD : PERIPHERAL VASCULAR 08/17/2016 [id number] / / [id number] documented as of this encounter Visit Diagnoses Diagnosis 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 breast in female, estrogen receptor positive (HCC)- Primary Metastasis to bone (HCC) Secondary malignant neoplasm of bone and bone marrow Peritoneal carcinomatosis (HCC) Malignant neoplasm of peritoneum, unspecified Metastasis to liver (HCC) Secondary malignant neoplasm of liver documented in this encounter Care Teams Toe Sewer Relationship Specialty Start Date End Date Mahogany Valentin MD [address] [place] [address] [place] [address] PCP - General Family Medicine 01/23/17 documented as of this encounter
--- OUTSIDE RECORDS SUMMARY | 2023-12-20 21:08 | External Medical Summary | Summary of Care ---
Demographics Address [address] [place] [address] Home Phone Email Address Preferred Language Irish Marital Status Unknown Holiness Affiliation Unknown Race White Ethnic Group Not or Lati no Author Name Unknown Organization [facility] Address [address] [facility] [address] Phone [phone] Care Team Providers Care Back Stayer Name Role Phone Mahogany Valentin MD Primary Care Provide r Reason for Visit * Reason Onset Date Comments Precert Future 09/13/2023 Faslodex, verzen io Encounter Details Date Type Department Care Team (Late st Contact Info) Description 09/13/2023 Telephone Hematology/Oncology Treatment, [place] [address] [place] [address] Michelle Rodriguez MD [address] [place] [address] Precert Future (Faslodex, verzenio) Allergies No known [...] mRNA, LNP-s, No Pre serve, 2-Dose Series ([employer]) 01/24/2021,06/29/2020,06/08/2020 COVID-19, LNP-s, No Preserve , Adam-sucrose, Ages 12+ ([employer]) 09/05/2021 COVID-19, MRNA-LNP, 23-24, P F, 30 MCG/0.3 mL, 12 YRS AND ABOVE, IM ([facility]) 01/16/2023 Covid-19, Mrna, Lnp-s, Pf, B ivalent, 30 Mcg, IM, 12 yrs and above ([employer]) 01/09/2022 PPD 02/25/2003 Pneumococcal Conjugate Vacc, 13 [...] Randhawa RN - 09/27/2023 2:20 PM EDT [place] plan for zometa built. Waiting for auth. [...] shipped 09/25. * Telephone Encounter - Katrina Radnhawa RN - 09/24/2023 12:17 PM EDT Nurse [...] entered for verzenio, can be filled at [facility]. Rx was not sent- sent to provider in other encounter. * Telephone Encounter - Gauri Emmanuel OSA - 09/18/2023 10:57 AM EDT Pt is scheduled but is asking about Apixaban 5 MG Oral Tablet (Eliquis) [[id number]] (Order [id number]) She was asking if this got sent to mail order with [facility] * Telephone Encounter - Gauri Emmanuel OSA [...] EDT Order received for verzenio, faslodex, xgeva. [place] plan built. Waiting for auth. Consent signed 09/13/23. Order forwarded to [facility]. Patient is going for hep B labs [...] 9:45 AM EDT Pharmacy Pharmacy Hematology Oncology [facility] [address] [place] [address] [facility] Hem/Onc [address] [place] [address] 10/08/2023 12:00 PM EDT Immunization/Inject ion Hematology/Oncology Treatment, [address] [place] [address] Nurse, Med [address] [place] [address] [place] [address] 10/22/2023 12:15 PM EDT Immunization/Inject ion Hematology/Oncology Treatment, [place] 200 [facility], [place] [phone] Nurse, Med 4 200 [facility] [place] [address] 11/12/2023 12:00 PM EDT Immunization/Inject ion Hematology/Oncology Treatment, [place] 200 [facility], [place] [phone] Nurse, Med 4 200 [facility] [place] [address] 01/07/2024 2:45 PM EDT Office Visit Hematology/Oncology [facility] 200 [facility] [place] [phone] Michelle Rodriguez MD 200 [facility] [place] [address] 03/16/2024 1:00 PM EST Office Visit Family Medicine [address] [place] [address] Mahogany Valentin MD [address] [place] [address] [place] [address] 03/20/2024 1:30 PM EST Imaging Radiology [address] [place] [address] 04/13/2024 1:00 PM EST Nurse Only Ancillary [address] [place] [address] [place], Nurse Annual Wellness [address] [place] [address] [place] [address] Health Maintenance Due Date Last Done Comments [...] this encounter Medical Devices Implanted Type Area Intrusion Analyst Device Identifier Shelf Expiration Date Model / Serial / Lot Port Power Mri W/8fr Cath - [id number] Implanted:Qty : 1 on 05/25/2015 by Florence Mayfield MD at [facility] Left: Subclavian CR BARD : PERIPHERAL VASCULAR 08/17/2016 [id number] / / [id number] documented as of this encounter Visit Diagnoses Diagnosis 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 breast in female, estrogen receptor positive (HCC)- Primary Metastasis to bone (HCC) Secondary malignant neoplasm of bone and bone marrow Peritoneal carcinomatosis (HCC) Malignant neoplasm of peritoneum, unspecified Metastasis to liver (HCC) Secondary malignant neoplasm of liver documented in this encounter Care Teams Back Stayer Relationship Specialty Start Date End Date Mahogany Valentin MD [address] [place] [address] [place] [address] PCP - General Family Medicine 01/23/17 documented as of this encounter
--- OUTSIDE RECORDS SUMMARY | 2023-12-20 21:09 | External Medical Summary | Summary of Care ---
Demographics Address [address] [place] [address] Home Phone Email Address Preferred Language Upper Sorbian Marital Status Unknown Worship Affiliation Unknown Race White Ethnic Group Not or Lati no Author Name Unknown Organization [facility] Address [address] [facility] [address] Phone [phone] Care Team Providers Care Cadd Instructor Name Role Phone Mahogany Valentin MD Primary Care Provide r Reason for Visit * Reason Onset Date Comments Precert Future 09/13/2023 Faslodex, verzen io Encounter Details Date Type Department Care Team (Late st Contact Info) Description 09/13/2023 Telephone Hematology/Oncology Treatment, [place] [address] [place] [address] Morales Rodriguez MD [address] [place] [address] Precert Future (Faslodex, verzenio) Allergies No known active allergiesdocumented as of this encounter (statuses as of 09/25/2023) Medications Medication Sig Dispensed Refills Start Date [...] as of this encounter (statuses as of 09/25/2023) Active Problems Problem Noted Date Diagnosed Date [...] as of this encounter (statuses as of 09/25/2023) Resolved Problems Problem Noted Date Diagnosed Date [...] as of this encounter (statuses as of 09/25/2023) Immunizations Name Administration Dates Next Due COVID-19 mRNA, LNP-s, No Pre serve, 2-Dose Series ([employer]) 01/24/2021,06/29/2020,06/08/2020 COVID-19, LNP-s, No Preserve , Adam-sucrose, Ages 12+ ([employer]) 09/05/2021 COVID-19, MRNA-LNP, 23-24, P F, 30 MCG/0.3 mL, 12 YRS AND ABOVE, IM ([facility] 01/16/2023 Covid-19, Mrna, Lnp-s, Pf, B ivalent, 30 Mcg, IM, 12 yrs and above ([employer]) 01/09/2022 PPD 02/25/2003 Pneumococcal Conjugate Vacc, 13 [...] entered for verzenio, can be filled at [facility]. Rx was not sent- sent to provider in other encounter. * Telephone Encounter - Gauri Emmanuel OSA - 09/18/2023 10:57 AM EDT Pt is scheduled but is asking about Apixaban 5 MG Oral Tablet (Eliquis) [[id number]] (Order [id number]) She was asking if this got sent to mail order with [employer] * Telephone Encounter - Gauri Emmanuel OSA [...] EDT Order received for verzenio, faslodex, xgeva. [employer] plan built. Waiting for auth. Consent signed 09/13/23. Order forwarded to [facility]. Patient is going for hep B labs today. Nurse education not scheduled, can call patient to see if she wants in person education or info mailed/ reviewed by phone. Dr Rodriguez wants faslodex to start next week. Will need to confirm dental status. documented in this encounter Plan of Treatment Upcoming Encounters Date Type Department Care Team (Late st Contact Info) Description 09/25/2023 10:00 AM EDT Imaging Radiology [address] [place] [address] 09/25/2023 10:00 AM EDT Imaging Radiology [facility] 1st [facility], [place] [address] [place] [address] 09/25/2023 1:45 PM EDT Pharmacy Pharmacy Hematology Oncology [facility] [address] [place] [address] [facility] Hem/Onc [address] [place] [address] 10/08/2023 12:00 PM EDT Immunization/Inject ion Hematology/Oncology Treatment, [address] [phone] Nurse, Med 4 [address] [place] [address] 10/22/2023 12:15 PM EDT Immunization/Inject ion Hematology/Oncology Treatment, [address] [phone] Nurse, Med 4 [address] [place] [address] 11/12/2023 12:00 PM EDT Immunization/Inject ion Hematology/Oncology Treatment, [place] [facility] [phone] Nurse, Med 4 [address] [place] [address] 01/07/2024 2:45 PM EDT Office Visit Hematology/Oncology [facility] [address] [place] [phone] Morales Rodriguez MD [address] [place] [address] 03/16/2024 1:00 PM EST Office Visit Family [address] [place] [phone] Mahogany Valentin MD [address] [place] [address] [place] [address] 03/20/2024 1:30 PM EST Imaging Radiology [address] [place] [address] 04/13/2024 1:00 PM EST Nurse Only Ancillary [address] [place] [address] [place], Nurse [address] [place] [address] Health Maintenance Due Date Last Done Comments [...] encounter Medical Devices Implanted Type Area Recycling Or Rubbish Collector Device Identifier Shelf Expiration Date Model / Serial / Lot Port Power Mri W/8fr Cath - [id number] Implanted:Qty : 1 on 05/25/2015 by Florence Mayfield MD at OR [facility] Left: Subclavian CR BARD : PERIPHERAL VASCULAR 08/17/2016 [id number] / / [id number] documented as of this encounter Care Teams Cadd Instructor Relationship Specialty Start Date End Date Mahogany Valentin MD [address] [place] [address] [place] [phone] PCP - General Family Medicine 01/23/17 documented as of this encounter
--- OUTSIDE RECORDS SUMMARY | 2023-12-20 21:09 | External Medical Summary | Summary of Care ---
Demographics Address [address] [place] [address] Home Phone Email Address Preferred Language Frisian Marital Status Unknown Druze Affiliation Unknown Race White Ethnic Group Not or Lati no Author Name Unknown Organization [facility] Address [address] [facility] [place] [address] Phone [phone] Care Team Providers Care Cement Kiln Operator Name Role Phone Mahogany Valentin MD Primary Care Provide r Encounter Details Date Type Department Care Team (Late st Contact Info) Description 08/30/2023 Orders Only Hematology/Oncology [facility] [place] 200 [facility] [place] [address] Morales Rodriguez MD [facility] [address] Allergies No known active allergiesdocumented as of this encounter (statuses as of 09/24/2023) Medications Medication Sig Dispensed Refills Start Date [...] EVERY DAY 90 Tablet 1 06/25/2023 Active documented as of this encounter (statuses as of 09/24/2023) Active Problems Problem Noted Date Diagnosed Date [...] as of this encounter (statuses as of 09/24/2023) Resolved Problems Problem Noted Date Diagnosed Date [...] as of this encounter (statuses as of 09/24/2023) Immunizations Name Administration Dates Next Due COVID-19 mRNA, LNP-s, No Pre serve, 2-Dose Series ([facility]) 01/24/2021,06/29/2020,06/08/2020 COVID-19, LNP-s, No Preserve , Adam-sucrose, Ages 12+ ([employer]) 09/05/2021 COVID-19, MRNA-LNP, 23-24, P F, 30 MCG/0.3 mL, 12 YRS AND ABOVE, IM ([facility] 01/16/2023 Covid-19, Mrna, Lnp-s, Pf, B ivalent, [...] Description 09/25/2023 10:00 AM EDT Imaging Radiology [facility] 132 [facility] [place] [address] 09/25/2023 10:00 AM EDT Imaging Radiology [facility] 1st [facility] 132 [facility] [place] [address] 09/25/2023 1:45 PM EDT Pharmacy Pharmacy Hematology Oncology [facility] [address] [place] [address] [facility] [place] Hem/Onc [address] [place] [address] 10/08/2023 12:00 PM EDT Immunization/Inject ion Hematology/Oncology Treatment, [address] [phone] Nurse, Med 4 [address] [place] [address] 10/22/2023 12:15 PM EDT Immunization/Inject ion Hematology/Oncology Treatment, [place] 200 [facility] [phone] Nurse, Med 4 [address] [place] [address] 11/12/2023 12:00 PM EDT Immunization/Inject ion Hematology/Oncology Treatment, [place] 200 [facility] [phone] Nurse, Med 200 [facility] [place] [address] 01/07/2024 2:45 PM EDT Office Visit Hematology/Oncology [facility] 200 [facility] [place] [address] Morales Rodriguez MD 200 [facility] [place] [address] 03/16/2024 1:00 PM EST Office Visit Family Medicine [address] [place] [address] Mahogany Valentin MD [address] [place] [address] [place] [address] 03/20/2024 1:30 PM EST Imaging Radiology [address] [place] [address] 04/13/2024 1:00 PM EST Nurse Only Ancillary [address] [place] [address] [place], Nurse Annual [address] [place] [address] Health Maintenance Due Date Last Done Comments [...] this encounter Medical Devices Implanted Type Area Fast Food Worker Device Identifier Shelf Expiration Date Model / Serial / Lot Port Power Mri W/8fr Cath - [id number] Implanted:Qty : 1 on 05/25/2015 by Florence Mayfield MD at [facility] Left: Subclavian CR BARD : PERIPHERAL VASCULAR 08/17/2016 [id number] / / [id number] documented as of this encounter Procedures Procedure Name Priority Date/Time Associated Diagnosis Comments RADIOLOGY EXAM - CT (IMAGES ONLY, NO REPORT) Routine 08/30/2023 2:15 PM EDT documented in this encounter Results * RADIOLOGY EXAM - CT (IMAGES ONLY, NO REPORT) (08/30/2023 2:15 PM EDT) 08/30/2023 2:09 PM EDT Narrative Scheduling, Silent - 09/24/2023 12:14 PM EDT This is an imaging study not interpreted or resulted by a [facility] or [facility] contracted radiologist. Morales Rodriguez MD RAD CT documented in this encounter Care Teams Cement Kiln Operator Relationship Specialty Start Date End Date Mahogany Valentin MD [address] [place] [address] [place] [phone] PCP - General Family Medicine 01/23/17 documented as of this encounter
--- OUTSIDE RECORDS SUMMARY | 2023-12-20 21:09 | External Medical Summary | Summary of Care ---
Demographics Address [address] [place] [address] Home Phone Email Address Preferred Language German Marital Status Unknown Anabaptist Affiliation Unknown Race White Ethnic Group Not or Lati no Author Name Unknown Organization [facility] Address [address] [facility] [place] [address] Phone [phone] Care Team Providers Care Finishing Technician Name Role Phone Mahogany Valentin MD Primary Care Provide r Reason for Visit * Reason Onset Date Comments Advice 09/19/2023 Eliquis Encounter Details Date Type Department Care Team (Late st Contact Info) Description 09/19/2023 Telephone Hematology/Oncology [facility] [address] [place] [phone] Morales Rodriguez MD [facility] [address] Advice (Eliquis) Allergies No known active allergiesdocumented as of this encounter (statuses as of 09/20/2023) Medications Medication Sig Dispensed Refills Start Date [...] as of this encounter (statuses as of 09/20/2023) Active Problems Problem Noted Date Diagnosed Date [...] as of this encounter (statuses as of 09/20/2023) Resolved Problems Problem Noted Date Diagnosed Date [...] as of this encounter (statuses as of 09/20/2023) Immunizations Name Administration Dates Next Due COVID-19 mRNA, LNP-s, No Pre serve, 2-Dose Series ([employer]) 01/24/2021,06/29/2020,06/08/2020 COVID-19, LNP-s, No Preserve , Adam-sucrose, Ages 12+ ([employer]) 09/05/2021 COVID-19, MRNA-LNP, 23-24, P F, 30 MCG/0.3 mL, 12 YRS AND ABOVE, IM ([facility]) 01/16/2023 Covid-19, Mrna, Lnp-s, Pf, B ivalent, 30 Mcg, IM, 12 yrs and above ([facility]) 01/09/2022 PPD 02/25/2003 Pneumococcal Conjugate Vacc, 13 [...] Telephone Encounter - Ramsey Wilson RN - 09/20/2023 2:[address] Burno- would like patient to hold Eliquis 2 days prior to procedure and resume the day after. MyG sent to patient. * Telephone Encounter - Ramsey Wilson RN - 09/20/2023 2:02 PM EDT TT sent to Dr. Bruno. * Telephone Encounter - Catalina Phillips OSA - 09/20/2023 1:42 PM EDT Spoke with patient again. She needs to know if she should take her morning dose of Eliquis on Saturday. Please advise. * Telephone Encounter - Katrina Randhawa RN - 09/19/2023 3:[address] Bruno: can you please review since Dr Rodriguez is out of the office? Ok to hold eliquis for 2 days prior to biopsy, can resume after biopsy? * Telephone Encounter - Catalina Phillips OSA - 09/19/2023 2:49 PM EDT Patient is scheduled 09/25/23 for left ultrasound guided breast biopsy. Please call patient with ELIQUIS instructions. Thank you documented in this encounter Plan of Treatment Upcoming Encounters Date Type Department Care Team (Late st Contact Info) Description 09/24/2023 11:00 AM EDT Nurse Only Hematology/Oncology [facility] [address] [place] [phone] [place], Nurse Hem Onc [facility] [address] [place] [address] 09/24/2023 12:00 PM EDT Immunization/Inject ion Hematology/Oncology Treatment, [place] [facility] [phone] Nurse, Med 200 [facility] [place] [address] 09/25/2023 10:00 AM EDT Imaging Radiology [facility] 132 [facility] [place] [address] 09/25/2023 10:00 AM EDT Imaging Radiology [facility] 1st [facility] 132 [facility] [place] [address] 09/25/2023 1:45 PM EDT Pharmacy Pharmacy Hematology Oncology [facility] [address] [place] [address] [facility] Hem/Onc [address] [place] [address] 01/07/2024 2:45 PM EDT Office Visit Hematology/Oncology [facility] 200 [facility] [place] [phone] Morales Rodriguez MD 200 [facility] [place] [address] 03/16/2024 1:00 PM EST Office Visit Family Medicine [address] [place] [phone] Mahogany Valentin MD [address] [place] [address] [place] [address] 03/20/2024 1:30 PM EST Imaging Radiology [address] [place] [address] 04/13/2024 1:00 PM EST Nurse Only Ancillary [address] [place] [address] [place], Nurse [address] [place] [address] Health Maintenance Due Date Last Done Comments [...] this encounter Medical Devices Implanted Type Area Chain Builder Loom Control Device Identifier Shelf Expiration Date Model / Serial / Lot Port Power Mri W/8fr Cath - [id number] Implanted:Qty : 1 on 05/25/2015 by Florence Mayfield MD at [facility] Left: Subclavian CR BARD : PERIPHERAL VASCULAR 08/17/2016 [id number] / / [id number] documented as of this encounter Care Teams Finishing Technician Relationship Specialty Start Date End Date Mahogany Valentin MD [address] [place] [address] [place] [address] PCP - General Family Medicine 01/23/17 documented as of this encounter
--- OUTSIDE RECORDS SUMMARY | 2023-12-20 21:09 | External Medical Summary | Summary of Care ---
Demographics Address [address] [place] [address] Home Phone Email Address Preferred Language Serbian Marital Status Unknown Hoahaoism Affiliation Unknown Race White Ethnic Group Not or Lati no Author Name Unknown Organization [facility] Address [address] [facility] [address] Phone [phone] Care Team Providers Care Paramedic Name Role Phone Mahogany Valentin MD Primary Care Provide r Reason for Visit * Reason Onset Date Comments Order Request 09/25/2023 Encounter Details Date Type Department Care Team (Late st Contact Info) Description 09/25/2023 Telephone Radiology [facility] [address] [place] [address] Morales Rodriguez MD 200 [place] [address] Order Request Allergies No known active allergiesdocumented [...] mRNA, LNP-s, No Pre serve, 2-Dose Series (Maternova) 01/24/2021,06/29/2020,06/08/2020 COVID-19, LNP-s, No Preserve , Adam-sucrose, Ages 12+ (Pfizer) 09/05/2021 COVID-19, MRNA-LNP, 23-24, P F, 30 MCG/0.3 mL, 12 YRS AND ABOVE, IM ([employer]-Comir[employer]) 01/16/2023 Covid-19, Mrna, Lnp-s, Pf, B ivalent, 30 Mcg, IM, 12 yrs and above (Maternova) 01/09/2022 Pneumococcal Conjugate Vacc, 13 Valent (Prevnar) [...] Encounter - Katrina Randhawa RN - 09/25/2023 7:49 AM EDT Order signed. * Telephone Encounter - Rosa Zapata RDMS - 09/25/2023 7:41 AM EDT Patient scheduled today for biopsy. Order pended for diagnostic ultrasound to precede procedure. Thank you! documented in this encounter Plan of Treatment Upcoming Encounters Date Type Department Care Team (Late st Contact Info) Description 09/25/2023 10:00 AM EDT Imaging Radiology [facility] 1st Floor, [address] [place] [address] 09/25/2023 10:00 AM EDT Imaging Radiology [address] [place] [address] 09/25/2023 10:30 AM EDT Imaging Radiology [address] [place] [address] 09/25/2023 1:45 PM EDT Pharmacy Pharmacy Hematology Oncology [address] [address] [facility] Hem/Onc [address] [place] [address] 10/08/2023 12:00 PM EDT Immunization/Inject ion Hematology/Oncology Treatment, [address], [place] [phone] Nurse, Med 4 200 [facility] [place] [address] 10/22/2023 12:15 PM EDT Immunization/Inject ion Hematology/Oncology Treatment, [address] [phone] Nurse, Med 4 200 [facility] [place] [address] 11/12/2023 12:00 PM EDT Immunization/Inject ion Hematology/Oncology Treatment, [place] [facility] [phone] Nurse, Med 200 [facility] [place] [address] 01/07/2024 2:45 PM EDT Office Visit Hematology/Oncology [facility] [place] 200 [facility] [place] [phone] Morales Rodriguez MD 200 [facility] [place] [address] 03/16/2024 1:00 PM EST Office Visit Family Medicine [address] [place] [phone] Mahogany Valentin MD [address] [place] [address] [place] [address] 03/20/2024 1:30 PM EST Imaging Radiology [address] [place] [address] 04/13/2024 1:00 PM EST Nurse Only Ancillary [address] [place] [address] [place], Nurse Annual [address] [place] [address] Scheduled Orders Name Type Priority Associated Diagnoses Orde r Schedule US BREAST LIMITED LEFT Medical Imaging Routine Metastasis to bone (HCC) Metastasis to liver (HCC) Peritoneal carcinomatosis (HCC) 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 breast in female, estrogen receptor positive (HCC) Expected: 09/25/2023, Expires: 12/26/2023 Health Maintenance Due Date Last Done Comments [...] this encounter Medical Devices Implanted Type Area Supervisor Ride Assembly Device Identifier Shelf Expiration Date Model / Serial / Lot Port Power Mri W/8fr Cath - [id number] Implanted:Qty : 1 on 05/25/2015 by Florence Mayfield MD at [facility] Left: Subclavian CR BARD : PERIPHERAL VASCULAR 08/17/2016 [id number] / / [id number] documented as of this encounter Visit Diagnoses Diagnosis Metastasis to bone (HCC)- Primary Secondary malignant neoplasm of bone and bone marrow Metastasis to liver (HCC) Secondary malignant neoplasm of liver Peritoneal carcinomatosis (HCC) Malignant neoplasm of peritoneum, unspecified 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 breast in female, estrogen receptor positive (HCC) documented in this encounter Care Teams Paramedic Relationship Specialty Start Date End Date Mahogany Valentin MD [address] [place] [address] [place] [address] PCP - General Family Medicine 01/23/17 documented as of this encounter
--- OUTSIDE RECORDS SUMMARY | 2023-12-20 21:09 | External Medical Summary | Summary of Care ---
Demographics Address [address] [place] [address] Home Phone Email Address Preferred Language Irish Marital Status Unknown Rastafari Affiliation Unknown Race White Ethnic Group Not or Lati no Author Name Unknown Organization [facility] Address [address] [facility] [place] [address] Phone [phone] Care Team Providers Care Detective Bureau Chief Name Role Phone Mahogany Valentin MD Primary Care Provide r Encounter Details Date Type Department Care Team (Late st Contact Info) Description 08/30/2023 Orders Only Hematology/Oncology [facility] [place] 200 [facility] [place] [address] Morales Rodriguez MD 200 [facility] [address] Allergies No known active allergiesdocumented as of [...] mRNA, LNP-s, No Pre serve, 2-Dose Series (Boomi) 01/24/2021,06/29/2020,06/08/2020 COVID-19, LNP-s, No Preserve , Adam-sucrose, Ages 12+ (Pfizer) 09/05/2021 COVID-19, MRNA-LNP, 23-24, P F, 30 MCG/0.3 mL, 12 YRS AND ABOVE, IM ([facility]) 01/16/2023 Covid-19, Mrna, Lnp-s, Pf, B ivalent, [...] Description 09/25/2023 10:00 AM EDT Imaging Radiology [facility] 132 [facility] [place] [address] 09/25/2023 10:00 AM EDT Imaging Radiology [facility] 1st [facility] 132 [facility] [place] [address] 09/25/2023 1:45 PM EDT Pharmacy Pharmacy Hematology Oncology [facility] [place] [address] [place] [address] [facility] Hem/Onc [address] [place] [address] 10/08/2023 12:00 PM EDT Immunization/Inject ion Hematology/Oncology Treatment, [address] [phone] Nurse, Med 4 200 Pia Abreu [place] [address] 10/22/2023 12:15 PM EDT Immunization/Inject ion Hematology/Oncology Treatment, [place] [facility] [phone] Nurse, Med 4 200 [address] Abreu [place] [address] 11/12/2023 12:00 PM EDT Immunization/Inject ion Hematology/Oncology Treatment, [place] 200 [facility] [phone] Nurse, Med 200 [facility] [place] [address] 01/07/2024 2:45 PM EDT Office Visit Hematology/Oncology [facility] 200 [facility] [place] [phone] Morales Rodriguez MD 200 [facility] [place] [address] 03/16/2024 1:00 PM EST Office Visit Family Medicine [address] [place] [phone] Mahogany Valentin MD [address] [place] [address] [place] [address] 03/20/2024 1:30 PM EST Imaging Radiology [address] [place] [address] 04/13/2024 1:00 PM EST Nurse Only Ancillary [address] [place] [address] [place], Nurse Annual [address] [place] [address] Health Maintenance Due Date Last Done Comments [...] this encounter Medical Devices Implanted Type Area Admissions Advisor Device Identifier Shelf Expiration Date Model / Serial / Lot Port Power Mri W/8fr Cath - [id number] Implanted:Qty : 1 on 05/25/2015 by Florence Mayfield MD at OR [facility] Left: Subclavian CR BARD : PERIPHERAL VASCULAR 08/17/2016 [id number] / / [id number] documented as of this encounter Procedures Procedure Name Priority Date/Time Associated Diagnosis Comments RADIOLOGY EXAM - CT (IMAGES ONLY, NO REPORT) Routine 08/30/2023 2:10 PM EDT documented in this encounter Results * RADIOLOGY EXAM - CT (IMAGES ONLY, NO REPORT) (08/30/2023 2:10 PM EDT) 08/30/2023 2:09 PM EDT Narrative Scheduling, Silent - 09/24/2023 12:13 PM EDT This is an imaging study not interpreted or resulted by a [facility] or [employer] contracted radiologist. Morales Rodriguez MD RAD CT documented in this encounter Care Teams Detective Bureau Chief Relationship Specialty Start Date End Date Mahogany Valentin MD [address] [place] [address] [place] [phone] PCP - General Family Medicine 01/23/17 documented as of this encounter
--- OUTSIDE RECORDS SUMMARY | 2023-12-20 21:09 | External Medical Summary | Summary of Care ---
Demographics Address [address] [place] [address] Home Phone Email Address Preferred Language Icelandic Marital Status Unknown Jewish Affiliation Unknown Race White Ethnic Group Not or Lati no Author Name Unknown Organization [facility] Address [facility] [address] [facility] [address] Phone [phone] Care Team Providers Care Superintendent Plant Name Role Phone Mahogany Valentin MD Primary Care Provide r Reason for Visit * Reason Onset Date Comments Precert Future 09/13/2023 Faslodex, verzen io Encounter Details Date Type Department Care Team (Late st Contact Info) Description 09/13/2023 Telephone Hematology/Oncology Treatment, [place] [address] [place] [address] Morales Rodriguez MD [address] [place] [address] Precert Future (Faslodex, verzenio) Allergies No known [...] mRNA, LNP-s, No Pre serve, 2-Dose Series ([email or web address]) 01/24/2021,06/29/2020,06/08/2020 COVID-19, LNP-s, No Preserve , Adam-sucrose, Ages 12+ ([email or web address]) 09/05/2021 COVID-19, MRNA-LNP, 23-24, P F, 30 MCG/0.3 mL, 12 YRS AND ABOVE, IM ([facility]) 01/16/2023 Covid-19, Mrna, Lnp-s, Pf, B ivalent, 30 Mcg, IM, 12 yrs and above ([email or web address]) 01/09/2022 PPD 02/25/2003 Pneumococcal Conjugate Vacc, 13 [...] entered for verzenio, can be filled at [facility]. Rx was not sent- sent to provider in other encounter. * Telephone Encounter - Gauri Emmanuel OSA - 09/18/2023 10:57 AM EDT Pt is scheduled but is asking about Apixaban 5 MG Oral Tablet (Eliquis) [[id number]] (Order [id number]) She was asking if this got sent to mail order with [facility] * Telephone Encounter - Gauri Emmanuel OSA [...] EDT Order received for verzenio, faslodex, xgeva. Barron plan built. Waiting for auth. Consent signed 09/13/23. Order forwarded to [facility]. Patient is going for hep B [...] Description 09/25/2023 10:00 AM EDT Imaging Radiology [facility] 132 [facility] [place] [address] 09/25/2023 10:00 AM EDT Imaging Radiology [facility] [facility] 132 [facility] [place] [address] 09/25/2023 1:45 PM EDT Pharmacy Pharmacy Hematology Oncology [address] [address] [facility], [facility] Hem/Onc [address] [place] [address] 10/08/2023 12:00 PM EDT Immunization/Inject ion Hematology/Oncology Treatment, [address] [place] [phone] Nurse, Med [address] [facility] [place] [address] 10/22/2023 12:15 PM EDT Immunization/Inject ion Hematology/Oncology Treatment, [address] [place] [phone] Nurse, Med [address] [facility] [place] [address] 11/12/2023 12:00 PM EDT Immunization/Inject ion Hematology/Oncology Treatment, [address] [place] [phone] Nurse, Med [address] [facility] [place] [address] 01/07/2024 2:45 PM EDT Office Visit Hematology/Oncology [facility] 200 [facility] [place] [phone] Morales Rodriguez MD 200 [facility] [place] [address] 03/16/2024 1:00 PM EST Office Visit Family Medicine [address] [place] [phone] Mahogany Valentin MD [address] [place] [address] [place] [address] 03/20/2024 1:30 PM EST Imaging Radiology [address] [place] [address] 04/13/2024 1:00 PM EST Nurse Only Ancillary [address] [place] [address] [place], Nurse Annual Wellness [address] [place] [address] [place] [address] Health Maintenance Due Date Last Done Comments [...] this encounter Medical Devices Implanted Type Area Ultrasonic Tester Device Identifier Shelf Expiration Date Model / Serial / Lot Port Power Mri W/8fr Cath - [id number] Implanted:Qty : 1 on 05/25/2015 by Florence Mayfield MD at OR [facility] Left: Subclavian CR BARD : PERIPHERAL VASCULAR 08/17/2016 [id number] / / [id number] documented as of this encounter Care Teams Superintendent Plant Relationship Specialty Start Date End Date Mahogany Valentin MD [address] [place] [address] [place] [address] PCP - General Family Medicine 01/23/17 documented as of this encounter
--- OUTSIDE RECORDS SUMMARY | 2023-12-20 21:09 | External Medical Summary | Summary of Care ---
Demographics Address [address] [place] [address] Home Phone Email Address Preferred Language Icelandic Marital Status Unknown Faith Affiliation Unknown Race White Ethnic Group Not or Lati no Author Name Unknown Organization [facility] Address [address] [facility] [address] Phone [phone] Care Team Providers Care Machine Deburrer Name Role Phone Mahogany Valentin MD Primary Care Provide r Reason for Visit * Reason Onset Date Comments Precert Future 09/13/2023 Faslodex, verzen io Encounter Details Date Type Department Care Team (Late st Contact Info) Description 09/13/2023 Telephone Hematology/Oncology Treatment, [place] [address] [place] [address] Morales Rodriguez MD [address] [place] [address] Precert Future (Faslodex, verzenio) Allergies No known [...] mRNA, LNP-s, No Pre serve, 2-Dose Series (SpineVision) 01/24/2021,06/29/2020,06/08/2020 COVID-19, LNP-s, No Preserve , Adam-sucrose, Ages 12+ (SpineVision) 09/05/2021 COVID-19, MRNA-LNP, 23-24, P F, 30 MCG/0.3 mL, 12 YRS AND ABOVE, IM ([facility]) 01/16/2023 Covid-19, Mrna, Lnp-s, Pf, B ivalent, 30 Mcg, IM, 12 yrs and above (SpineVision) 01/09/2022 PPD 02/25/2003 Pneumococcal Conjugate Vacc, 13 [...] entered for verzenio, can be filled at [facility]. Rx was not sent- sent to provider in other encounter. * Telephone Encounter - Gauri Emmanuel OSA - 09/18/2023 10:57 AM EDT Pt is scheduled but is asking about Apixaban 5 MG Oral Tablet (Eliquis) [[id number]] (Order [id number]) She was asking if this got sent to mail order with [facility] * Telephone Encounter - Gauri Emmanuel OSA [...] EDT Order received for verzenio, faslodex, xgeva. [place] plan built. Waiting for auth. Consent signed 09/13/23. Order forwarded to [facility]. Patient is going for hep B labs [...] Description 09/25/2023 10:00 AM EDT Imaging Radiology [facility] 132 [facility] [place] [address] 09/25/2023 10:00 AM EDT Imaging Radiology [facility] 1st [facility] 132 [facility] [place] [address] 09/25/2023 1:45 PM EDT Pharmacy Pharmacy Hematology Oncology [address] [address] [facility] [place] Hem/Onc [address] [place] [address] 10/08/2023 12:00 PM EDT Immunization/Inject ion Hematology/Oncology Treatment, [address] [place] [phone] Nurse, Med 4 200 [facility] [place] [address] 10/22/2023 12:15 PM EDT Immunization/Inject ion Hematology/Oncology Treatment, [address] [place] [address] Nurse, Med 4 200 [facility] [place] [address] 11/12/2023 12:00 PM EDT Immunization/Inject ion Hematology/Oncology Treatment, [address] [place] [phone] Nurse, Med 4 200 [facility] [place] [address] 01/07/2024 2:45 PM EDT Office Visit Hematology/Oncology [facility] 200 [facility] [place] [phone] Morales Rodriguez MD 200 [facility] [place] [address] 03/16/2024 1:00 PM EST Office Visit Family Medicine [address] [place] [address] Mahogany Valentin MD [address] [place] [address] [place] [address] 03/20/2024 1:30 PM EST Imaging Radiology [address] [place] [address] 04/13/2024 1:00 PM EST Nurse Only Ancillary [address] [place] [address] [place], Nurse Annual Wellness [address] [place] [address] [place] [address] Health Maintenance Due Date Last Done Comments [...] this encounter Medical Devices Implanted Type Area Hydraulic Chair Assembler Device Identifier Shelf Expiration Date Model / Serial / Lot Port Power Mri W/8fr Cath - [id number] Implanted:Qty : 1 on 05/25/2015 by Florence Mayfield MD at OR [facility] Left: Subclavian CR BARD : PERIPHERAL VASCULAR 08/17/2016 [id number] / / [id number] documented as of this encounter Care Teams Machine Deburrer Relationship Specialty Start Date End Date Mahogany Valentin MD [address] [place] [address] [place] [address] PCP - General Family Medicine 01/23/17 documented as of this encounter
--- OUTSIDE RECORDS SUMMARY | 2023-12-20 21:09 | External Medical Summary | Summary of Care ---
Demographics Address [address] [place] [address] Home Phone Email Address Preferred Language Danish Marital Status Unknown Rastafari Affiliation Unknown Race White Ethnic Group Not or Lati no Author Name Unknown Organization [facility] Address [address] [facility] [place] [address] Phone [phone] Care Team Providers Care Marine Extension Agent Name Role Phone Mahogany Valentin MD Primary Care Provide r Reason for Visit * Reason Onset Date Comments Advice 09/19/2023 Eliquis Encounter Details Date Type Department Care Team (Late st Contact Info) Description 09/19/2023 Telephone Hematology/Oncology [facility] [address] [place] [phone] Morales Rodriguez MD 200 [facility] [address] Advice (Eliquis) Allergies No known active allergiesdocumented [...] mRNA, LNP-s, No Pre serve, 2-Dose Series ([employer]) 01/24/2021,06/29/2020,06/08/2020 COVID-19, LNP-s, No Preserve , Adam-sucrose, Ages 12+ (Pfizer) 09/05/2021 COVID-19, MRNA-LNP, 23-24, P F, 30 MCG/0.3 mL, 12 YRS AND ABOVE, IM ([employer]-Comirnaty) 01/16/2023 Covid-19, Mrna, Lnp-s, Pf, B ivalent, 30 Mcg, IM, 12 yrs and above ([employer]) 01/09/2022 PPD 02/25/2003 Pneumococcal Conjugate Vacc, 13 [...] 09/24/2023 11:00 AM EDT Nurse Only Hematology/Oncology [facility] [place] [address] [place] [phone] [place], Nurse Hem Onc [facility] [address] [facility] [place] [address] 09/24/2023 12:00 PM EDT Immunization/Inject ion Hematology/Oncology Treatment, [place] [address] [place] [phone] Nurse, Med [address] [facility] [place] [address] 09/25/2023 10:00 AM EDT Imaging Radiology [facility] 132 [facility] [place] [address] 09/25/2023 10:00 AM EDT Imaging Radiology [facility] 1st [facility] [address] [place] [address] 09/25/2023 1:45 PM EDT Pharmacy Pharmacy Hematology Oncology [facility] [address] [place] [address] [facility], [facility] Hem/Onc [address] [place] [address] 01/07/2024 2:45 PM EDT Office Visit Hematology/Oncology [facility] [address] [place] [phone] Morales Rodriguez MD [address] [place] [address] 03/16/2024 1:00 PM EST Office Visit Family Medicine [address] [place] [phone] Mahogany Valentin MD [address] [place] [address] [place] [address] 03/20/2024 1:30 PM EST Imaging Radiology [address] [place] [address] 04/13/2024 1:00 PM EST Nurse Only Ancillary [address] [place] [address] [place], Nurse Annual Wellness [address] [place] [address] [place] [address] Health Maintenance Due Date Last Done Comments [...] this encounter Medical Devices Implanted Type Area Electrical Engineer Mep Device Identifier Shelf Expiration Date Model / Serial / Lot Port Power Mri W/8fr Cath - [id number] Implanted:Qty : 1 on 05/25/2015 by Florence Mayfield MD at OR [facility] Left: Subclavian CR BARD : PERIPHERAL VASCULAR 08/17/2016 [id number] / / [id number] documented as of this encounter Care Teams Marine Extension Agent Relationship Specialty Start Date End Date Mahogany Valentin MD [address] [place] [address] [place] [phone] PCP - General Family Medicine 01/23/17 documented as of this encounter
--- OUTSIDE RECORDS SUMMARY | 2023-12-20 21:09 | External Medical Summary | Summary of Care ---
Demographics Address [address] [place] [address] Home Phone Email Address Preferred Language Hungarian Marital Status Unknown Catholic Affiliation Unknown Race White Ethnic Group Not or Lati no Author Name Unknown Organization [facility] Address [address] [facility] [address] Phone [phone] Care Team Providers Care Double End Tenoner Setter Name Role Phone Mahogany Valentin MD Primary Care Provide r Reason for Visit * Reason Onset Date Comments Precert Future 09/13/2023 Faslodex, verzen io Encounter Details Date Type Department Care Team (Late st Contact Info) Description 09/13/2023 Telephone Hematology/Oncology Treatment, [place] [address] [place] [address] Morales Rodriguez MD [address] [place] [address] Precert Future (Faslodex, verzenio) Allergies No known active allergiesdocumented as of this encounter (statuses as of 09/23/2023) Medications Medication Sig Dispensed Refills Start Date [...] as of this encounter (statuses as of 09/23/2023) Active Problems Problem Noted Date Diagnosed Date [...] as of this encounter (statuses as of 09/23/2023) Resolved Problems Problem Noted Date Diagnosed Date [...] as of this encounter (statuses as of 09/23/2023) Immunizations Name Administration Dates Next Due COVID-19 mRNA, LNP-s, No Pre serve, 2-Dose Series (Powderhook) 01/24/2021,06/29/2020,06/08/2020 COVID-19, LNP-s, No Preserve , Adam-sucrose, Ages 12+ (Powderhook) 09/05/2021 COVID-19, MRNA-LNP, 23-24, P F, 30 MCG/0.3 mL, 12 YRS AND ABOVE, IM ([facility]) 01/16/2023 Covid-19, Mrna, Lnp-s, Pf, B ivalent, 30 Mcg, IM, 12 yrs and above (Powderhook) 01/09/2022 PPD 02/25/2003 Pneumococcal Conjugate Vacc, 13 [...] entered for verzenio, can be filled at [facility]. Rx was not sent- sent to provider in other encounter. * Telephone Encounter - Gauri Emmanuel OSA - 09/18/2023 10:57 AM EDT Pt is scheduled but is asking about Apixaban 5 MG Oral Tablet (Eliquis) [[id number]] (Order [id number]) She was asking if this got sent [...] EDT Order received for verzenio, faslodex, xgeva. Albin plan built. Waiting for auth. Consent signed 09/13/23. Order forwarded to [facility]. Patient is going for hep B [...] 09/24/2023 11:00 AM EDT Nurse Only Hematology/Oncology [facility] [place] [address] [place] [phone] [place], Nurse Hem Onc [facility] 200 [facility] [place] [address] 09/24/2023 12:00 PM EDT Immunization/Inject ion Hematology/Oncology Treatment, [place] [address] [place] [phone] Nurse, Med 200 [facility] [place] [address] 09/25/2023 10:00 AM EDT Imaging Radiology [address] [place] [address] 09/25/2023 10:00 AM EDT Imaging Radiology [facility] 1st [facility] [address] [facility] [place] [address] 09/25/2023 1:45 PM EDT Pharmacy Pharmacy Hematology Oncology [place] [address] [place] [address] [facility] Hem/Onc [address] [place] [address] 01/07/2024 2:45 PM EDT Office Visit Hematology/Oncology [facility] [place] [address] [place] [phone] Morales Rodriguez MD [address] [place] [address] 03/16/2024 1:00 PM EST Office Visit Family Medicine [address] [place] [phone] Mahogany Valentin MD [address] [place] [address] [place] [address] 03/20/2024 1:30 PM EST Imaging Radiology [address] [place] [address] 04/13/2024 1:00 PM EST Nurse Only Ancillary [address] [place] [address] [place], Nurse Annual [address] [place] [address] Health Maintenance Due Date Last Done Comments [...] this encounter Medical Devices Implanted Type Area Director Of Primary Care Device Identifier Shelf Expiration Date Model / Serial / Lot Port Power Mri W/8fr Cath - [id number] Implanted:Qty : 1 on 05/25/2015 by Florence Mayfield MD at OR [facility] Left: Subclavian CR BARD : PERIPHERAL VASCULAR 08/17/2016 [id number] / / [id number] documented as of this encounter Care Teams Double End Tenoner Setter Relationship Specialty Start Date End Date Mahogany Valentin MD [address] [place] [address] [place] [address] PCP - General Family Medicine 01/23/17 documented as of this encounter
--- OUTSIDE RECORDS SUMMARY | 2023-12-20 21:09 | External Medical Summary | Summary of Care ---
Demographics Address [address] [place] [address] Home Phone Email Address Preferred Language Upper Sorbian Marital Status Unknown Druze Affiliation Unknown Race White Ethnic Group Not or Lati no Author Name Unknown Organization [facility] Address [address] [facility] [place] [address] Phone [phone] Care Team Providers Care Biological Technician Name Role Phone Mahogany Valentin MD Primary Care Provide r Reason for Visit * Reason Onset Date Comments Patient Assistance Program 09/18/2023 Encounter Details Date Type Department Care Team (Late st Contact Info) Description 09/18/2023 Telephone Hematology/Oncology [facility] [place] 200 [place] [phone] Morales Rodriguez MD [address] [facility] [address] Patient Assistance Program Allergies No known active allergiesdocumented as of [...] mRNA, LNP-s, No Pre serve, 2-Dose Series (Zenbox) 01/24/2021,06/29/2020,06/08/2020 COVID-19, LNP-s, No Preserve , Adam-sucrose, Ages 12+ (Pfizer) 09/05/2021 COVID-19, MRNA-LNP, 23-24, P F, 30 MCG/0.3 mL, 12 YRS AND ABOVE, IM (Peer.im-Comirnat) 01/16/2023 Covid-19, Mrna, Lnp-s, Pf, B ivalent, 30 Mcg, IM, 12 yrs and above (Zenbox) 01/09/2022 PPD 02/25/2003 Pneumococcal Conjugate Vacc, 13 [...] may be eligible. Also sent applications forpharmacy katty/frozen food selector. Sounds like she will be eligible for pharmacy katty. Applications mailed: : YES Follow up: 09/25/2023 Yajaira Chamberlain Medication Journeyman [employer] 09/19/2023, 10:18 AM * Telephone Encounter - Yajaira Mann OSA - 09/18/2023 3:03 PM EDT Patient Assistance Name of Medication: Abemaciclib 150 MG Oral Tablet (Verzenio) Was patient spoken to: : NO, left message. Type of assistance: Will screen for Pharmacy Katty/PACE/Manager Filter Applications mailed: : YES Follow up: 09/25/2023 Thank Yajaira masters Medication [employer]neyman [employer] 09/18/2023, 3:03 PM * Telephone Encounter - Mary Marin CPhT - 09/18/2023 9:55 AM EDT [facility] Patient Assistance Request: Medication name: Verzenio Insurance? medicare d Co-pay amount: [phone] Action needed: new funding inquiry Target ship date (if applicable): new start IF HEM/ONC: Confirm this encounter is routed to [phone]: Yes All other department requests should be flagged in referral. Confirm encounter department selected is for prescribing physician: Yes If URGENT: Send TEAMS message to appropriate aging department supervisor (see "Patient Assistance Guide" - ROUTING POOLS:[facility] on shared drive): [] Urgent message sent to: Thank Mary masters CPhT [facility] 09/18/2023,9:55 AM documented in this encounter Plan of Treatment Upcoming Encounters Date Type Department Care Team (Late st Contact Info) Description 09/24/2023 11:00 AM EDT Nurse Only Hematology/Oncology [facility] [place] [address] [place] [phone] [place], Nurse Hem Onc [address] [place] [address] 09/24/2023 12:00 PM EDT Immunization/Inject ion Hematology/Oncology Treatment, [place] [address] [place] [phone] Nurse, Med 4 [address] [place] [address] 09/25/2023 10:00 AM EDT Imaging Radiology [facility] [place] [address] 09/25/2023 10:00 AM EDT Imaging Radiology [facility] 1st [facility] 132 [facility] [place] [address] 09/25/2023 1:45 PM EDT Pharmacy Pharmacy Hematology Oncology [facility] [address] [place] [address] [facility] Hem/Onc [address] [place] [address] 01/07/2024 2:45 PM EDT Office Visit Hematology/Oncology [facility] [place] [address] [place] [phone] Morales Rodriguez MD [address] [place] [address] 03/16/2024 1:00 PM EST Office Visit Family [address] [phone] Mahogany Valentin MD [address] [place] [address] [place] [address] 03/20/2024 1:30 PM EST Imaging Radiology [address] [place] [address] 04/13/2024 1:00 PM EST Nurse Only Ancillary [address] [place] [address] [place], Nurse Annual [address] [place] [address] Health Maintenance Due Date Last Done Comments [...] this encounter Medical Devices Implanted Type Area Manager Filter Device Identifier Shelf Expiration Date Model / Serial / Lot Port Power Mri W/8fr Cath - [id number] Implanted:Qty : 1 on 05/25/2015 by Florence Mayfield MD at OR [facility] Left: Subclavian CR BARD : PERIPHERAL VASCULAR 08/17/2016 [id number] / / [id number] documented as of this encounter Care Teams Biological Technician Relationship Specialty Start Date End Date Mahogany aVlentin MD [address] [place] [address] [place] [phone] PCP - General Family Medicine 01/23/17 documented as of this encounter
--- OUTSIDE RECORDS SUMMARY | 2023-12-20 21:09 | External Medical Summary | Summary of Care ---
Demographics Address [address] [place] [address] Home Phone Email Address Preferred Language Pashto Marital Status Unknown Zoroastrian Affiliation Unknown Race White Ethnic Group Not or Lati no Author Name Unknown Organization [facility] Address [address] [facility] [place] [address] Phone [phone] Care Team Providers Care Tint Layer Name Role Phone Mahogany Valentin MD Primary Care Provide r Reason for Visit * Reason Onset Date Comments Advice 09/19/2023 Eliquis Encounter Details Date Type Department Care Team (Late st Contact Info) Description 09/19/2023 Telephone Hematology/Oncology [facility] [address] [place] [phone] Morales Rodriguez MD [facility] [address] Advice (Eliquis) Allergies No known active allergiesdocumented [...] mRNA, LNP-s, No Pre serve, 2-Dose Series (Tallyfy) 01/24/2021,06/29/2020,06/08/2020 COVID-19, LNP-s, No Preserve , Adam-sucrose, Ages 12+ (Pfizer) 09/05/2021 COVID-19, MRNA-LNP, 23-24, P F, 30 MCG/0.3 mL, 12 YRS AND ABOVE, IM (PFIZER-Comirnaty) 01/16/2023 Covid-19, Mrna, Lnp-s, Pf, B ivalent, 30 Mcg, IM, 12 yrs and above (Tallyfy) 01/09/2022 PPD 02/25/2003 Pneumococcal Conjugate Vacc, 13 [...] Encounter - Ramsey Wilson RN - 09/20/2023 3:48 PM EDT [place]- please see instructions below. Thank you! * Telephone Encounter - Ramsey Wilson RN - 09/20/2023 2:[address] Bruno- would like patient to hold Eliquis 2 [...] 09/24/2023 11:00 AM EDT Nurse Only Hematology/Oncology [facility] [place] [address] [place] [phone] [place], Nurse Hem Onc [address] [place] [address] 09/24/2023 12:00 PM EDT Immunization/Inject ion Hematology/Oncology Treatment, [place] [address] [facility] [address] [place] [phone] Nurse, Med 200 [facility] [place] [address] 09/25/2023 10:00 AM EDT Imaging Radiology [address] [place] [address] 09/25/2023 10:00 AM EDT Imaging Radiology [address] [address] 09/25/2023 1:45 PM EDT Pharmacy Pharmacy Hematology Oncology [facility] [address] [place] [address] [facility] Hem/Onc [address] [place] [address] 01/07/2024 2:45 PM EDT Office Visit Hematology/Oncology [facility] [place] [address] [place] [phone] Morales Rodriguez MD [address] [place] [address] 03/16/2024 1:00 PM EST Office Visit Family [address] [place] [phone] Mahogany Valentin MD [address] [place] [address] [place] [address] 03/20/2024 1:30 PM EST Imaging Radiology [address] [place] [address] 04/13/2024 1:00 PM EST Nurse Only Ancillary [address] [place] [address] [place], Nurse Annual Wellness [address] [place] [address] [place] [address] Health Maintenance Due Date Last Done Comments [...] this encounter Medical Devices Implanted Type Area Automation Architect Device Identifier Shelf Expiration Date Model / Serial / Lot Port Power Mri W/8fr Cath - [id number] Implanted:Qty : 1 on 05/25/2015 by Florence Mayfield MD at OR [facility] Left: Subclavian CR BARD : PERIPHERAL VASCULAR 08/17/2016 [id number] / / [id number] documented as of this encounter Care Teams Tint Layer Relationship Specialty Start Date End Date Mahogany Valentin MD [address] [place] [address] [place] [address] PCP - General Family Medicine 01/23/17 documented as of this encounter
--- OUTSIDE RECORDS SUMMARY | 2023-12-20 21:09 | External Medical Summary | Summary of Care ---
Demographics Address [address] [place] [address] Home Phone Email Address Preferred Language Slovenian Marital Status Unknown Sabianist Affiliation Unknown Race White Ethnic Group Not or Lati no Author Name Unknown Organization [facility] Address [address] [facility] [place] [address] Phone [phone] Care Team Providers Care Greenskeeper Supervisor Name Role Phone Mahogany Valentin MD Primary Care Provide r Encounter Details Date Type Department Care Team (Late st Contact Info) Description 09/24/2023 11:00 AM EDT Nurse Only Hematology/Oncology 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 Pulmonary nodules 01/19/2016 04/21/2018 COPD, severity [...] mRNA, LNP-s, No Pre serve, 2-Dose Series (Scour Prevention) 01/24/2021,06/29/2020,06/08/2020 COVID-19, LNP-s, No Preserve , Adam-sucrose, Ages 12+ (Pfizer) 09/05/2021 COVID-19, MRNA-LNP, 23-24, P F, 30 MCG/0.3 mL, 12 YRS AND ABOVE, IM (PFIZER-Comirnaty) 01/16/2023 Covid-19, Mrna, Lnp-s, Pf, B ivalent, 30 Mcg, IM, 12 yrs and above (Scour Prevention) 01/09/2022 Pneumococcal Conjugate Vacc, 13 Valent (Prevnar) [...] as of this encounter Nursing Notes * Katrina Randhawa RN - 09/24/2023 12:34 PM EDT Nurse education for verjefferson, faslnyasia, xgeva completed. documented in this encounter Plan of Treatment Upcoming Encounters Date Type Department Care Team (Late st Contact Info) Description 09/25/2023 10:00 AM EDT Imaging Radiology [facility] 132 [facility] [place] [address] 09/25/2023 10:00 AM EDT Imaging Radiology [facility] 1st [facility] 132 [facility] [place] [address] 09/25/2023 1:45 PM EDT Pharmacy Pharmacy Hematology Oncology [facility] [address] [place] [address] [facility] Hem/Onc [address] [place] [address] 10/08/2023 12:00 PM EDT Immunization/Inject ion Hematology/Oncology Treatment, [place] [facility] [phone] Nurse, Med 4 [address] [place] [address] 10/22/2023 12:15 PM EDT Immunization/Inject ion Hematology/Oncology Treatment, [place] 200 [facility], [place] [phone] Nurse, Med 4 [address] [place] [address] 11/12/2023 12:00 PM EDT Immunization/Inject ion Hematology/Oncology Treatment, [place] 200 [facility], [place] [address] Nurse, Med 4 [address] [place] [address] 01/07/2024 2:45 PM EDT Office Visit Hematology/Oncology [facility] [place] [address] [place] [phone] Morales Rodriguez MD [address] [place] [address] 03/16/2024 1:00 PM EST Office Visit Family Medicine [address] [place] [phone] Mahogany Valentin MD [address] [place] [address] [place] [address] 03/20/2024 1:30 PM EST Imaging Radiology [address] [place] [address] 04/13/2024 1:00 PM EST Nurse Only Ancillary [address] [place] [address] [place], Nurse Annual [address] [place] [address] Health Maintenance Due Date Last Done Comments [...] this encounter Medical Devices Implanted Type Area Operations Professional Device Identifier Shelf Expiration Date Model / Serial / Lot Port Power Mri W/8fr Cath - [id number] Implanted:Qty : 1 on 05/25/2015 by Florence Mayfield MD at [facility] Left: Subclavian CR BARD : PERIPHERAL VASCULAR 08/17/2016 [id number] / / [id number] documented as of this encounter Care Teams Greenskeeper Supervisor Relationship Specialty Start Date End Date Mahogany Valentin MD [address] [place] [address] [place] [address] PCP - General Family Medicine 01/23/17 documented as of this encounter
--- OUTSIDE RECORDS SUMMARY | 2023-12-20 21:09 | External Medical Summary | Summary of Care ---
Author Name Unknown Organization [facility] Address [address] [place] [place] [place] [address] Phone [phone] Care Team Providers Care Athlete Manager Name Role Phone Mahogany Valentin MD Primary Care Provide r Encounter Details Date Type Department Care Team (Latest Contact Info) Description 08/30/2023 2:10 PM EDT - 08/30/2023 2:14 PM EDT Hospital Encounter Radiology Film File [address] [place], [place] [phone] Discharge Disposition: Home - Self Care Allergies [...] mRNA, LNP-s, No Pre serve, 2-Dose Series (Xceligent) 01/24/2021,06/29/2020,06/08/2020 COVID-19, LNP-s, No Preserve , Adam-sucrose, [...] Upcoming Encounters Date Type Department Care Team (Latest Contact Info) Description 09/25/2023 1:45 PM EDT Pharmacy Pharmacy Hematology Oncology [address] [address] [facility] Hem/Onc [address] [place] [address] MEDICATION THERAPY MANAGEMENT ABEMACICLIB 10/04/2023 9:45 AM EDT Pharmacy Pharmacy Hematology Oncology [address] [address] [facility], [facility] Hem/Onc [address] [place] [address] 10/08/2023 12:00 PM EDT Immunization/Inje ction Hematology/Oncology Treatment, [address], [place] [phone] Nurse, Med 4 [address] [place] [address] 10/22/2023 12:15 PM EDT Immunization/Inje ction Hematology/Oncology Treatment, [place] 200 [facility], [place] [phone] Nurse, Med 4 [address] [place] [address] 11/12/2023 12:00 PM EDT Immunization/Inje ction Hematology/Oncology Treatment, [place] [facility] [phone] Nurse, Med 200 [facility] [place] [address] 01/07/2024 2:45 PM EDT Office Visit Hematology/Oncology [facility] 200 [facility] [place] [phone] Morales Rodriguez MD 200 [facility] [place] [address] 03/16/2024 1:00 PM EST Office Visit Family Medicine [address] [place] [phone] Mahogany Valentin MD [address] [place] [address] [place] [address] 03/20/2024 1:30 PM EST Imaging Radiology [address] [place] [address] 04/13/2024 1:00 PM EST Nurse Only Ancillary [address] [place] [address] [place], Nurse Annual [address] [place] [address] Health Maintenance Due Date Last Done Comments [...] this encounter Medical Devices Implanted Type Area Blanching Machine Operator Device Identifier Shelf Expiration Date Model / Serial / Lot Port Power Mri W/8fr Cath - [id number] Implanted:Qty : 1 on 05/25/2015 by Florence Mayfield MD at OR [facility] Left: Subclavian CR BARD : PERIPHERAL VASCULAR 08/17/2016 [id number] / / [id number] documented as of this encounter Procedures Procedure [...] interpreted or resulted by a [facility] or [employer] contracted radiologist. Morales Rodriguez MD RAD CT documented in this encounter Care Teams Athlete Manager Relationship Specialty Start Date End Date Mahogany Valentin MD [address] [place] [address] [place] [phone] PCP - General Family Medicine 01/23/17 documented as of this encounter
--- OUTSIDE RECORDS SUMMARY | 2023-12-20 21:09 | External Medical Summary | Summary of Care ---
Author Name Unknown Organization [facility] Address [address] [place] [facility] [place] [address] Phone [phone] Care Team Providers Care Core Paster Name Role Phone Mahogany Valentin MD Primary Care Provide r Encounter Details Date Type Department Care Team (Latest Contact Info) Description 08/30/2023 2:15 PM EDT - 08/30/2023 11:59 PM EDT Hospital Encounter Radiology Film File [address] [place], [place] [id number] Discharge Disposition: Home - Self Care Allergies [...] mRNA, LNP-s, No Pre serve, 2-Dose Series (ShipEarly) 01/24/2021,06/29/2020,06/08/2020 COVID-19, LNP-s, No Preserve , Adam-sucrose, [...] 1:45 PM EDT Pharmacy Pharmacy Hematology Oncology [address] [address] [facility] Hem/Onc [address] [place] [address] MEDICATION THERAPY MANAGEMENT ABEMACICLIB 10/04/2023 9:45 AM EDT Pharmacy Pharmacy Hematology Oncology [address] [address] [facility] Hem/Onc [address] [place] [address] 10/08/2023 12:00 PM EDT Immunization/Inje ction Hematology/Oncology Treatment, [address], [place] [phone] Nurse, Med 4 [address] [place] [address] 10/22/2023 12:15 PM EDT Immunization/Inje ction Hematology/Oncology Treatment, [place] 200 [facility], [place] [phone] Nurse, Med 4 [address] [place] [address] 11/12/2023 12:00 PM EDT Immunization/Inje ction Hematology/Oncology Treatment, [place] 200 [facility] [phone] Nurse, Med 200 [facility] [place] [address] 01/07/2024 2:45 PM EDT Office Visit Hematology/Oncology [facility] 200 [facility] [place] [phone] Morales Rodriguez MD 200 [facility] [place] [address] 03/16/2024 1:00 PM EST Office Visit Family Medicine [address] [place] [phone] Mahogany Valentin MD [address] [place] [address] [place] [address] 03/20/2024 1:30 PM EST Imaging Radiology [address] [place] [address] 04/13/2024 1:00 PM EST Nurse Only Ancillary [address] [place] [address] [place], Nurse Annual [address] [place] [address] Health Maintenance Due Date Last Done Comments [...] this encounter Medical Devices Implanted Type Area Protection Manager Device Identifier Shelf Expiration Date Model / Serial / Lot Port Power Mri W/8fr Cath - [id number] Implanted:Qty : 1 on 05/25/2015 by Florence Mayfield MD at OR [facility] Left: Subclavian CR BARD : PERIPHERAL VASCULAR 08/17/2016 [id number] / / [id number] documented as of this encounter Procedures Procedure [...] interpreted or resulted by a [facility] or [place] [employer] contracted radiologist. Morales Rodriguez MD RAD CT documented in this encounter Care Teams Core Paster Relationship Specialty Start Date End Date Mahogany Valentin MD [address] [place] [address] [place] [phone] PCP - General Family Medicine 01/23/17 documented as of this encounter
--- OUTSIDE RECORDS SUMMARY | 2023-12-20 21:09 | External Medical Summary | Summary of Care ---
Demographics Address [address] [place] [address] Home Phone Email Address Preferred Language Urdu Marital Status Unknown Buddhist Affiliation Unknown Race White Ethnic Group Not or Lati no Author Name Unknown Organization [facility] Address [address] [facility] [address] Phone [phone] Care Team Providers Care Rotary Envelope Machine Operator Name Role Phone Mahogany Valentin MD Primary Care Provide r Reason for Visit * Reason Onset Date Comments Precert Future 09/13/2023 Faslodex, verzen io Encounter Details Date Type Department Care Team (Late st Contact Info) Description 09/13/2023 Telephone Hematology/Oncology Treatment, [place] [address] [place] [address] Morales Rodriguez MD [address] [place] [address] Precert Future (Faslodex, verzenio) Allergies No known [...] mRNA, LNP-s, No Pre serve, 2-Dose Series ([employer]) 01/24/2021,06/29/2020,06/08/2020 COVID-19, LNP-s, No Preserve , Adam-sucrose, Ages 12+ ([employer]) 09/05/2021 COVID-19, MRNA-LNP, 23-24, P F, 30 MCG/0.3 mL, 12 YRS AND ABOVE, IM ([facility]) 01/16/2023 Covid-19, Mrna, Lnp-s, Pf, B ivalent, 30 Mcg, IM, 12 yrs and above ([employer]) 01/09/2022 PPD 02/25/2003 Pneumococcal Conjugate Vacc, 13 [...] entered for verzenio, can be filled at [facility]. Rx was not sent- sent to provider in other encounter. * Telephone Encounter - Gauri Emmanuel OSA - 09/18/2023 10:57 AM EDT Pt is scheduled but is asking about Apixaban 5 MG Oral Tablet (Eliquis) [[id number]] (Order [id number]) She was asking if this got sent to mail order with [employer] * Telephone Encounter - Gauri Emmanuel OSA [...] EDT Order received for verzenio, faslodex, xgeva. [place] plan built. Waiting for auth. Consent signed 09/13/23. Order forwarded to [facility]. Patient is going for hep [...] Description 09/25/2023 10:00 AM EDT Imaging Radiology [address], [address] [place] [address] 09/25/2023 10:00 AM EDT Imaging Radiology [facility] [place] [address] 09/25/2023 10:30 AM EDT Imaging Radiology [facility] [address] [place] [address] 09/25/2023 1:45 PM EDT Pharmacy Pharmacy Hematology Oncology [facility] [address] [place] [address] [facility] Hem/Onc [address] [place] [address] 10/08/2023 12:00 PM EDT Immunization/Inject ion Hematology/Oncology Treatment, [place] 200 [facility] Al[place]ina [place] [phone] Nurse, Med [address] [place] [address] [address] 10/22/2023 12:15 PM EDT Immunization/Inject ion Hematology/Oncology Treatment, [address] [phone] Nurse, Med [address] [place] [address] [address] 11/12/2023 12:00 PM EDT Immunization/Inject ion Hematology/Oncology Treatment, [place] [address] [place] [phone] Nurse, Med [address] [place] [address] [place] [address] 01/07/2024 2:45 PM EDT Office Visit Hematology/Oncology Pia Zhang [place] [address] [place] [address] [phone] Morales Rodriguez MD [address] [place] [address] 03/16/2024 1:00 PM EST Office Visit Family [address] [place] [address] Mahogany Valentin MD [address] [place] [address] [place] [address] 03/20/2024 1:30 PM EST Imaging Radiology [address] [place] [address] 04/13/2024 1:00 PM EST Nurse Only Ancillary [address] [place] [address] [place], Nurse Annual Wellness [address] [place] [address] [place] [address] Health Maintenance Due Date Last Done Comments [...] this encounter Medical Devices Implanted Type Area Block Sealer Device Identifier Shelf Expiration Date Model / Serial / Lot Port Power Mri W/8fr Cath - [id number] Implanted:Qty : 1 on 05/25/2015 by Florence Mayfield MD at OR [facility] Left: Subclavian CR BARD : PERIPHERAL VASCULAR 08/17/2016 [id number] / / [id number] documented as of this encounter Care Teams Rotary Envelope Machine Operator Relationship Specialty Start Date End Date Mahogany Valentin MD [address] [place] [address] [place] [address] PCP - General Family Medicine 01/23/17 documented as of this encounter
--- OUTSIDE RECORDS SUMMARY | 2023-12-20 21:09 | External Medical Summary | Summary of Care ---
Demographics Address [address] [place] [address] Home Phone Email Address Preferred Language Amharic Marital Status Unknown Sikhism Affiliation Unknown Race White Ethnic Group Not or Lati no Author Name Unknown Organization [facility] Address [address] [place] [address] Phone [phone] Care Team Providers Care Flyer Repairer Name Role Phone Mahogany Valentin MD Primary [...] Procedures [place] INJECTION, FULVESTRANT Morales Rodriguez MD 200 [facility] [place] [address] Anc Hem/Onc [address] [address] Referral ID Status Reason Start Date Expiration Date V isits Requested Visits Authorized [id number] Authorized 09/13/2023 04/21/2099 [id number] Encounter Details Date Type Department Care Team (Latest Contact Info) Description 09/24/2023 12:00 PM EDT Immunization/ Injection Hematology/Oncology Treatment, [address] [address] Nurse, [place] [address] [place] [address] 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 [...] mRNA, LNP-s, No Pre serve, 2-Dose Series ([employer]) 01/24/2021,06/29/2020,06/08/2020 COVID-19, LNP-s, No Preserve , Adam-sucrose, [...] Description 09/25/2023 10:00 AM EDT Imaging Radiology [address] [place] [address] 09/25/2023 10:00 AM EDT Imaging Radiology [facility] [address] [place] [address] 09/25/2023 1:45 PM EDT Pharmacy Pharmacy Hematology Oncology [facility] [place] [address] [place] [address] [place] Hem[facility]Onc [address] [place] [address] 10/08/2023 12:00 PM EDT Immunization/Inject ion Hematology/Oncology Treatment, [place] [address] [place] [address] Nurse, Med 4 200 [facility] [address] [place], [place] [address] 10/22/2023 12:15 PM EDT Immunization/Inject ion Hematology/Oncology Treatment, [place] [address] [place] [address] Nurse, Med 4 200 [facility] [place] [address] 11/12/2023 12:00 PM EDT Immunization/Inject ion Hematology/Oncology Treatment, [address] [place] [phone] Nurse, Med 4 200 [facility] [place] [address] 01/07/2024 2:45 PM EDT Office Visit Hematology/Oncology [facility] 200 [facility] [place] [phone] Morales Rodriguez MD 200 [facility] [place] [address] 03/16/2024 1:00 PM EST Office Visit Family Medicine [address] [place] [phone] Mahogany Valentin MD [address] [place] [address] [place] [address] 03/20/2024 1:30 PM EST Imaging Radiology [address] [place] [address] 04/13/2024 1:00 PM EST Nurse Only Ancillary [address] [place] [address] Nurse [place] [address] [place] [address] Health Maintenance Due Date Last Done Comments [...] this encounter Medical Devices Implanted Type Area Bomb Loader Device Identifier Shelf Expiration Date Model / Serial / Lot Port Power Mri W/8fr Cath - [id number] Implanted:Qty : 1 on 05/25/2015 by Florence Mayfield MD at [facility] Left: Subclavian CR BARD : PERIPHERAL VASCULAR 08/17/2016 [id number] / / [id number] documented as of this encounter Visit Diagnoses [...] Left documented in this encounter Care Teams Flyer Repairer Relationship Specialty Start Date End Date Mahogany Valentin MD NPI: [id number] [place] [address] [place] [address] PCP - General Family Medicine 01/23/17 documented as of this encounter
--- OUTSIDE RECORDS SUMMARY | 2023-12-20 21:10 | External Medical Summary | Summary of Care ---
Demographics Address [address] [place] [address] Home Phone Email Address Preferred Language Hebrew Marital Status Unknown Quaker Affiliation Unknown Race White Ethnic Group Not or Lati no Author Name Unknown Organization [facility] Address [address] [facility] [place] [address] Phone [phone] Care Team Providers Care Motorboat Mechanic Name Role Phone Mahogany Valentin MD Primary Care Provide r Reason for Visit * Reason Onset Date Comments Patient Assistance Program 09/18/2023 Encounter Details Date Type Department Care Team (Late st Contact Info) Description 09/18/2023 Telephone Hematology/Oncology [facility] [place] 200 [facility] [place] [phone] Morales Rodriguez MD [address] [facility] [address] Patient Assistance Program Allergies No known active allergiesdocumented as of this encounter (statuses as of 09/18/2023) Medications Medication Sig Dispensed Refills Start Date [...] EVERY DAY 90 Tablet 1 06/25/2023 Active Apixaban 5 MG Oral Tablet (Eliquis) Take 1 Tablet by mouth in the morning and 1 Tablet before bedtime. Active Potassium & Sodium Phosphates 280-160-250 MG Oral Packet (Phos-Nak)Indication s: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 breast in female, estrogen receptor positive (HCC),Metastasis to bone (HCC),Peritoneal carcinomatosis (HCC),Metastasis to liver (HCC),Hypophosphatem ia Take 1 Packet by mouth in the morning. 30 Packet 3 09/13/2023 Active Additional Information Patient not taking.Reported on 09/17/2023 Ondansetron HCl 4 MG Oral TabletIndications:Ma lignant [...] as of this encounter (statuses as of 09/18/2023) Active Problems Problem Noted Date Diagnosed Date [...] as of this encounter (statuses as of 09/18/2023) Resolved Problems Problem Noted Date Diagnosed Date [...] as of this encounter (statuses as of 09/18/2023) Immunizations Name Administration Dates Next Due COVID-19 mRNA, LNP-s, No Pre serve, 2-Dose Series ([employer]) 01/24/2021,06/29/2020,06/08/2020 COVID-19, LNP-s, No Preserve , Adam-sucrose, Ages 12+ (Pfizer) 09/05/2021 COVID-19, MRNA-LNP, 23-24, P F, 30 MCG/0.3 mL, 12 YRS AND ABOVE, IM (PFIZER-Comirnaty) 01/16/2023 Covid-19, Mrna, Lnp-s, Pf, B ivalent, 30 Mcg, IM, 12 yrs and above ([employer]) 01/09/2022 Pneumococcal Conjugate Vacc, 13 Valent (Prevnar) [...] Type of assistance: Will screen for Pharmacy Katty/PACE/Auto Body Repairman Applications mailed: : YES Follow up: 09/25/2023 Thank you, Yajaira Mann Medication Reception Centre Manager 09/18/2023, 3:03 PM * Telephone Encounter - Mary Marin CPhT - 09/18/2023 9:55 AM EDT [facility] Patient Assistance Request: Medication name: Verzenio Insurance? medicare d Co-pay amount: [phone] Action needed: new funding inquiry Target ship date (if applicable): new start IF HEM/ONC: Confirm this encounter is routed to [phone]: Yes All other department requests should be flagged in referral. Confirm encounter department selected is for prescribing physician: Yes If URGENT: Send TEAMS message to appropriate billing department supervisor (see "Patient Assistance Guide" - ROUTING POOLS:[facility] on shared drive): [] Urgent message sent to: Thank you, Mary Marin CPhT [facility] 09/18/2023,9:55 AM documented in this encounter Plan of Treatment Upcoming Encounters Date Type Department Care Team (Late st Contact Info) Description 09/20/2023 1:45 PM EDT Pharmacy Pharmacy Hematology Oncology [facility] [address] [place] [address] [facility] Hem/Onc [address] [place] [address] 09/24/2023 11:00 AM EDT Nurse Only Hematology/Oncology [facility] [address] [place] [address] [place] Nurse Hem Onc Sc[address]ery [address] [place] [address] 09/24/2023 12:00 PM EDT Immunization/Inject ion Hematology/Oncology Treatment, [place] [facility] [phone] Nurse, Med 200 [facility] [place] [address] 01/07/2024 2:45 PM EDT Office Visit Hematology/Oncology [facility] 200 [facility] [place] [phone] Morales Rodriguez MD 200 [facility] [place] [address] 03/16/2024 1:00 PM EST Office Visit Family Medicine [address] [place] [phone] Mahogany Valentin MD [address] [place] [address] [place] [address] 03/20/2024 1:30 PM EST Imaging Radiology [address] [place] [address] 04/13/2024 1:00 PM EST Nurse Only Ancillary [address] [place] [address] [place], Nurse Annual [address] [place] [address] Health Maintenance Due Date Last Done Comments [...] this encounter Medical Devices Implanted Type Area Auto Body Repairman Device Identifier Shelf Expiration Date Model / Serial / Lot Port Power Mri W/8fr Cath - [id number] Implanted:Qty : 1 on 05/25/2015 by Florence Mayfield MD at [facility] Left: Subclavian CR BARD : PERIPHERAL VASCULAR 08/17/2016 [id number] / / [id number] documented as of this encounter Care Teams Motorboat Mechanic Relationship Specialty Start Date End Date Mahogany Valentin MD [address] [place] [address] [place] [address] PCP - General Family Medicine 01/23/17 documented as of this encounter
--- OUTSIDE RECORDS SUMMARY | 2023-12-20 21:10 | External Medical Summary | Summary of Care ---
Demographics Address [address] [place] [address] Home Phone Email Address Preferred Language Occitan Marital Status Unknown Catholic Affiliation Unknown Race White Ethnic Group Not or Lati no Author Name Unknown Organization [facility] Address [address] [facility] [address] Phone [phone] Care Team Providers Care Brass Burnisher Name Role Phone Mahogany Valentin MD Primary Care Provide r Reason for Visit * Reason Onset Date Comments Pre Cert/Prior Auth 09/13/2023 Encounter Details Date Type Department Care Team (Late st Contact Info) Description 09/13/2023 Telephone Hematology/Oncology Treatment, [place] [address] [place] [address] Morales Rodriguez MD 200 [place] [address] Pre Cert/Prior Auth Allergies No known active allergiesdocumented as of [...] Additional Information Patient not taking.Reported on 09/17/2023 documented as of this encounter (statuses as [...] 12/25/2011 Overview: Per Lipid Taxonomy. Mixed dyslipidemia 01/07/200304/05/ 9 Overview: Per Lipid Taxonomy. Anxiety 01/07/2003 08/23/2022 Other (abnormal) findings on radiological examination of breast 01/07/2003 06/03/2015 HISTORY OF TOBACCO USE 01/07/200302/16 Menopause 01/07/2003 02/16/2015 Osteoporosis 01/07/2003 02/16/2015 Tobacco use disorder 017 documented as of this encounter (statuses as of 09/18/2023) Immunizations Name Administration Dates Next Due COVID-19 mRNA, LNP-s, No Pre serve, 2-Dose Series ([employer]) 01/24/2021,06/29/2020,06/08/2020 COVID-19, LNP-s, No Preserve , Adam-sucrose, Ages 12+ (Pfizer) 09/05/2021 COVID-19, MRNA-LNP, 23-24, P F, 30 MCG/0.3 mL, 12 YRS AND ABOVE, IM (PFIZER-Comirnaty) 01/16/2023 Covid-19, Mrna, Lnp-s, Pf, B ivalent, 30 Mcg, IM, 12 yrs and above ([employer]) 01/09/2022 PPD 02/25/2003 Pneumococcal Conjugate Vacc, 13 [...] Telephone Encounter - Nilsa Baker LPN - 09/18/2023 10:46 AM EDT ICD-10: C79.51, C78.6, C78.7, E83.39 Start date: 09/13/2023 Drugs: Phos-Nak Oral Packet Multidisciplinary Clinic note: yes Physician: Dr. Morales Rodriguez Comments: Called and verifed prior authorization needed with [facility]. Concurrent Therapy: yes * Telephone Encounter - Nilsa Baker LPN - 09/17/2023 9:06 AM EDT Per My Merter message from patient, called and spoke with the Pharmacist at [facility]. He states a prior authorization is required for the Phos-Nak packets. The only information he has from the insurance company is to call . Pre-Cert: Please assist with getting the Phos-Nak authorization. Prior Auth Telephone: Thank you!! * Telephone Encounter - Katrina Randhawa RN - 09/13/2023 3:[address] Rodriguez: "-phosphorus level is 2.0. Would like to start oral phosphatase supplementation." MyG sent. documented in this encounter Plan of Treatment Upcoming Encounters Date Type Department Care Team (Late st Contact Info) Description 09/20/2023 1:45 PM EDT Pharmacy Pharmacy Hematology Oncology [address] [address] [facility] [place] Hem/Onc [address] [place] [address] 09/24/2023 11:00 AM EDT Nurse Only Hematology/Oncology [address] [place] [phone] [place], Nurse Hem Onc [address] [place] [address] 09/24/2023 12:00 PM EDT Immunization/Inject ion Hematology/Oncology Treatment, [address] [phone] Nurse, Med [address] [place] [address] [place] [address] 01/07/2024 2:45 PM EDT Office Visit Hematology/Oncology [facility], [address] [place] [address] Morales Rodriguez MD [address] [place] [address] 03/16/2024 1:00 PM EST Office Visit Family Medicine [address] [place] [phone] Mahogany Valentin MD [address] [place] [address] [place] [address] 03/20/2024 1:30 PM EST Imaging Radiology [address] [place] [address] 04/13/2024 1:00 PM EST Nurse Only Ancillary [address] [place] [address] [place], Nurse Annual [address] [place] [address] Health Maintenance Due Date Last Done Comments [...] this encounter Medical Devices Implanted Type Area Car Pre Cooler Device Identifier Shelf Expiration Date Model / Serial / Lot Port Power Mri W/8fr Cath - [id number] Implanted:Qty : 1 on 05/25/2015 by Florence Mayfield MD at OR [facility] Left: Subclavian CR BARD : PERIPHERAL VASCULAR 08/17/2016 [id number] / / [id number] documented as of this encounter Care Teams Brass Burnisher Relationship Specialty Start Date End Date Mahogany Valentin MD [address] [place] [address] [place] [phone] PCP - General Family Medicine 01/23/17 documented as of this encounter
--- OUTSIDE RECORDS SUMMARY | 2023-12-20 21:10 | External Medical Summary | Summary of Care ---
Demographics Address [address] [place] [address] Home Phone Email Address Preferred Language Swedish Marital Status Unknown Voodoo Affiliation Unknown Race White Ethnic Group Not or Lati no Author Name Unknown Organization [facility] Address [address] [facility] [place] [address] Phone [phone] Care Team Providers Care Director Of Solutions Architecture Name Role Phone Mahogany Valentin MD Primary Care Provide r Reason for Visit * Reason Onset Date Comments Medication Refill 09/17/2023 Encounter Details Date Type Department Care Team (Late st Contact Info) Description 09/17/2023 Refill Family Medicine [address] [phone] Mahogany Valentin MD [address] [place] [address] [place] [address] Allergies No known active allergiesdocumented as of [...] mRNA, LNP-s, No Pre serve, 2-Dose Series ([employer]) 01/24/2021,06/29/2020,06/08/2020 COVID-19, LNP-s, No Preserve , Adam-sucrose, Ages 12+ ([employer]) 09/05/2021 COVID-19, MRNA-LNP, 23-24, P F, 30 MCG/0.3 mL, 12 YRS AND ABOVE, IM (PFIZER-Comirnaty) 01/16/2023 Covid-19, Mrna, Lnp-s, Pf, B ivalent, 30 Mcg, IM, 12 yrs and above ([employer]) 01/09/2022 Pneumococcal Conjugate Vacc, 13 Valent (Prevnar) [...] encounter Miscellaneous Notes * Telephone Encounter - Stephie Calvo PHARM Tech - 09/17/2023 3:59 PM EDT error documented in this encounter Plan of Treatment Upcoming Encounters Date Type Department Care Team (Late st Contact Info) Description 09/18/2023 1:30 PM EDT Pharmacy Pharmacy Hematology Oncology [facility] [address] [place] [address] [facility], [place] [facility] Hem/Onc [address] [place] [address] 09/24/2023 11:00 AM EDT Nurse Only Hematology/Oncology [facility] [place] [address] [place] [address] [place], Nurse Hem Onc [facility] 200 [facility] [place] [address] 09/24/2023 12:00 PM EDT Immunization/Inject ion Hematology/Oncology Treatment, [place] 200 [facility] [place] [phone] Nurse, Med 4 200 [facility] [place] [address] 01/07/2024 2:45 PM EDT Office Visit Hematology/Oncology [facility] [place] 200 [facility] [place] [phone] Morales Rodriguez MD 200 [facility] [place] [address] 03/16/2024 1:00 PM EST Office Visit Family Medicine [address] [place] [phone] Mahogany Valentin MD [address] [place] [address] [place] [address] 03/20/2024 1:30 PM EST Imaging Radiology [address] [place] [address] 04/13/2024 1:00 PM EST Nurse Only Ancillary [address] [place] [address] [place], Nurse Annual [address] [place] [address] Health Maintenance Due Date Last Done Comments [...] this encounter Medical Devices Implanted Type Area Steamship Agent Device Identifier Shelf Expiration Date Model / Serial / Lot Port Power Mri W/8fr Cath - [id number] Implanted:Qty : 1 on 05/25/2015 by Florence Mayfield MD at OR [facility] Left: Subclavian CR BARD : PERIPHERAL VASCULAR 08/17/2016 [id number] / / [id number] documented as of this encounter Care Teams Director Of Solutions Architecture Relationship Specialty Start Date End Date Maohgany Valentin MD [address] [place] [address] [place] [address] PCP - General Family Medicine 01/23/17 documented as of this encounter
--- OUTSIDE RECORDS SUMMARY | 2023-12-20 21:10 | External Medical Summary | Summary of Care ---
Demographics Address [address] [place] [address] Home Phone Email Address Preferred Language Macedonian Marital Status Unknown Confucianist Affiliation Unknown Race White Ethnic Group Not or Lati no Author Name Unknown Organization [facility] Address [address] [facility] [place] [address] Phone [phone] Care Team Providers Care Stem Lead Former Name Role Phone Mahogany Valentin MD Primary Care Provide r Reason for Visit * Reason Onset Date Comments Patient Assistance Program 09/18/2023 Encounter Details Date Type Department Care Team (Late st Contact Info) Description 09/18/2023 Telephone Hematology/Oncology [facility] [place] 200 [facility] [place] [phone] Morales Rodriguez MD [facility] [address] Patient Assistance Program Allergies No known active allergiesdocumented as of this encounter (statuses as of 09/19/2023) Medications Medication Sig Dispensed Refills Start Date [...] as of this encounter (statuses as of 09/19/2023) Active Problems Problem Noted Date Diagnosed Date [...] as of this encounter (statuses as of 09/19/2023) Resolved Problems Problem Noted Date Diagnosed Date [...] as of this encounter (statuses as of 09/19/2023) Immunizations Name Administration Dates Next Due COVID-19 mRNA, LNP-s, No Pre serve, 2-Dose Series ([employer]) 01/24/2021,06/29/2020,06/08/2020 COVID-19, LNP-s, No Preserve , Adam-sucrose, Ages 12+ (Pfizer) 09/05/2021 COVID-19, MRNA-LNP, 23-24, P F, 30 MCG/0.3 mL, 12 YRS AND ABOVE, IM (PonoMusic-Comirnat) 01/16/2023 Covid-19, Mrna, Lnp-s, Pf, B ivalent, 30 Mcg, IM, 12 yrs and above ([employer]) 01/09/2022 PPD 02/25/2003 Pneumococcal Conjugate Vacc, 13 [...] may be eligible. Also sent applications forpharmacy katty/measurement and sensing technician. Sounds like she will be eligible for pharmacy katty. Applications mailed: : YES Follow up: 09/25/2023 Yajaira Chamberlain [employer] Principal 09/19/2023, 10:18 AM * Telephone Encounter - Yajaira Mann OSA - 09/18/2023 3:03 PM EDT Patient Assistance Name of Medication: Abemaciclib 150 MG Oral Tablet (Verzenio) Was patient spoken to: : NO, left message. Type of assistance: Will screen for Pharmacy Katty/PACE/Mud Engineer Applications mailed: : YES Follow up: 09/25/2023 Thank Yajaira masters [employer]ication [employer] Principal 09/18/2023, 3:03 PM * Telephone Encounter - Mary Marin CPhT - 09/18/2023 9:55 AM EDT [facility] Patient Assistance Request: Medication name: Verzenio Insurance? medicare d Co-pay amount: [phone] Action needed: new funding inquiry Target ship date (if applicable): new start IF HEM/ONC: Confirm this encounter is routed to [id number]: Yes All other department requests should be flagged in referral. Confirm encounter department selected is for prescribing physician: Yes If URGENT: Send TEAMS message to appropriate roving department end finder (see "Patient Assistance Guide" - ROUTING POOLS:[facility] on shared drive): [] Urgent message sent to: Thank Mary masters CPhT [facility] 09/18/2023,9:55 AM documented in this encounter Plan of Treatment Upcoming Encounters Date Type Department Care Team (Late st Contact Info) Description 09/20/2023 1:45 PM EDT Pharmacy Pharmacy Hematology Oncology [facility] [address] [place] [address] [facility] [place] Hem/Onc [address] [place] [address] 09/24/2023 11:00 AM EDT Nurse Only Hematology/Oncology [facility] [place] [address] [place] [phone] [place], Nurse Hem Onc [facility] [address] [facility] [place] [address] 09/24/2023 12:00 PM EDT Immunization/Inject ion Hematology/Oncology Treatment, [place] 200 [facility] [place] [phone] Nurse, Med 4 200 [facility] [place] [address] 01/07/2024 2:45 PM EDT Office Visit Hematology/Oncology [facility] [place] [address] [place] [phone] Morales Rodriugez MD 200 [facility] [place] [address] 03/16/2024 1:00 PM EST Office Visit Family Medicine [address] [place] [phone] Mahogany Valentin MD [address] [place] [address] [place] [address] 03/20/2024 1:30 PM EST Imaging Radiology [address] [place] [address] 04/13/2024 1:00 PM EST Nurse Only Ancillary [address] [place] [address] Silviaalley, Nurse Annual Wellness [address] [place] [address] [place] [address] Health Maintenance Due Date Last Done Comments [...] this encounter Medical Devices Implanted Type Area Mud Engineer Device Identifier Shelf Expiration Date Model / Serial / Lot Port Power Mri W/8fr Cath - [id number] Implanted:Qty : 1 on 05/25/2015 by Florence Mayfield MD at OR [facility] Left: Subclavian CR BARD : PERIPHERAL VASCULAR 08/17/2016 [id number] / / [id number] documented as of this encounter Care Teams Stem Lead Former Relationship Specialty Start Date End Date Mahogany Valentin MD [address] [place] [address] [place] [address] PCP - General Family Medicine 01/23/17 documented as of this encounter
--- OUTSIDE RECORDS SUMMARY | 2023-12-20 21:10 | External Medical Summary | Summary of Care ---
Demographics Address [address] [place] [address] Home Phone Email Address Preferred Language Persian Marital Status Unknown Latter-Day Affiliation Unknown Race White Ethnic Group Not or Lati no Author Name Unknown Organization [facility] Address [address] [facility] [address] Phone [phone] Care Team Providers Care Mortician Supplies Sales Representative Name Role Phone Mahogany Valentin MD Primary Care Provide r Reason for Visit * Reason Onset Date Comments Precert Denied 09/13/2023 Encounter Details Date Type Department Care Team (Late st Contact Info) Description 09/13/2023 Telephone Hematology/Oncology Treatment, [place] [address] [place] [address] Morales Rodriguez MD 200 [place] [address] Precert Denied Allergies No known active allergiesdocumented as of [...] mRNA, LNP-s, No Pre serve, 2-Dose Series ([employer]) 01/24/2021,06/29/2020,06/08/2020 COVID-19, LNP-s, No Preserve , Adam-sucrose, Ages 12+ (Leaky) 09/05/2021 COVID-19, MRNA-LNP, 23-24, P F, 30 MCG/0.3 mL, 12 YRS AND ABOVE, IM (PFIZER-Comirnaty) 01/16/2023 Covid-19, Mrna, Lnp-s, Pf, B ivalent, 30 Mcg, IM, 12 yrs and above (Leaky) 01/09/2022 PPD 02/25/2003 Pneumococcal Conjugate Vacc, 13 [...] Called and verifed prior authorization needed with [facility]. Concurrent Therapy: yes * Telephone Encounter - Nilsa Baker LPN - 09/17/2023 9:06 AM EDT Per My Merter message from patient, called and spoke with the Pharmacist at [facility]. He states a prior authorization is [...] 1:45 PM EDT Pharmacy Pharmacy Hematology Oncology [address] [address] [facility] Hem/Onc [address] [place] [address] 09/24/2023 11:00 AM EDT Nurse Only Hematology/Oncology [facility] [place] 200 [facility] [address] Leatha, Nurse Hem Onc [address] [place] [address] 09/24/2023 12:00 PM EDT Immunization/Inject ion Hematology/Oncology Treatment, [place] 200 [facility] [place] [phone] Nurse, Med 200 [facility] [place] [address] 01/07/2024 2:45 PM EDT Office Visit Hematology/Oncology [place], [address] [place] [phone] Morales Rodriguez MD [address] [place] [address] 03/16/2024 1:00 PM EST Office Visit Family Medicine [address] [place] [phone] Mahogany Valentin MD [address] [place] [address] [place] [address] 03/20/2024 1:30 PM EST Imaging Radiology [address] [place] [address] 04/13/2024 1:00 PM EST Nurse Only Ancillary [address] [place] [address] [place], Nurse [address] [place] [address] Health Maintenance Due Date Last Done Comments [...] this encounter Medical Devices Implanted Type Area Bonding Molder Device Identifier Shelf Expiration Date Model / Serial / Lot Port Power Mri W/8fr Cath - [id number] Implanted:Qty : 1 on 05/25/2015 by Florence Mayfield MD at OR [facility] Left: Subclavian CR BARD : PERIPHERAL VASCULAR 08/17/2016 [id number] / / [id number] documented as of this encounter Care Teams Mortician Supplies Sales Representative Relationship Specialty Start Date End Date Mahogany Valentin MD [address] [place] [address] [place] [phone] PCP - General Family Medicine 01/23/17 documented as of this encounter
--- OUTSIDE RECORDS SUMMARY | 2023-12-20 21:10 | External Medical Summary | Summary of Care ---
Demographics Address [address] [address] Home Phone Email Address Preferred Language Greek Marital Status Unknown Jew Affiliation Unknown Race White Ethnic Group Not or Lati no Author Name Unknown Organization [facility] Address [address] [place] [address] Phone [phone] Care Team Providers Care Pvc Loader Name Role Phone Mahogany Valentin MD Primary Care Provide r Reason for Referral * Evaluate & Treat - Unlimited Visits (Within 10 days (routine)) - Authorized Specialty Diagnoses / Procedures Referred By Truman acevedo Referred To Contact Pharmacist / Pharmacy Diagnoses 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 breast in female, estrogen receptor positive (HCC) Hua Langley, [facility] [address] [place] [address] Referral ID Status Reason Start Date Expiration Date Visits Requested Visits Authorized [id number] Authorized Specialty Services Required 09/18/2023 99 99 Question Answer Referral Priority Within 10 days (routine) Where should this appointment be scheduled? [facility] Referring Provider Role: Specialist Specialty: Heme/Onc Reason for Referral: Oral Chemo Has consent been obtained for new oral chemo agent(s)? Yes Comments ORAL CHEMOTHERAPY MTDM MONITORING REFERRAL This patient is being referred to the Oral Chemotherapy Clinic for medication co-management. The planned duration of treatment is: Until disease progression/toxicity Please start oral chemotherapy: Once therapy has arrived from specialty pharmacy Oral Chemotherapy Monitoring will continue until one of the following discharge criteria has been met. The provider will be informed if any of these occur. 1. Disease progression. 2. Patient non-compliance 3. Compliance and tolerating treatment well without major toxicities with routine provider follow up. 4. Completion of therapy. Additional Comments: N/A By my signature, I understand that my patient will have their medication therapy managed by the [facility] Medication Therapy Disease Management Clinic ([facility]) per established policies, procedures, and protocols. I also certify that this referral may serve as an initiation of service for the management of drug therapy in the above noted patient. [facility] providers will be responsible for scheduling patient visits, obtaining appropriate laboratory studies, and adjusting medication management therapy per patient's need, in addition to those roles spelled out in the clinic policy, procedures, and drug management protocols. I understand that the service provided by the [facility] Clinic is voluntary and have informed patient that they can refuse the service at their discretion. I am aware that the [facility] Clinic will provide me with a copy of the patient encounter via my [employer]. I authorize the [facility] Clinic to carry out these activities on my behalf. I consider this program to be a necessary part of the patient's medical care. Encounter Details Date Type Department Care Team (Late st Contact Info) Description 09/13/2023 Orders Only Hematology/Oncology Pia Zhang [place] 200 [facility] [place] [phone] Morales Rodriguez MD 200 [facility] [place] [address] 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 [...] mRNA, LNP-s, No Pre serve, 2-Dose Series ([employer]) 01/24/2021,06/29/2020,06/08/2020 COVID-19, LNP-s, No Preserve , Adam-sucrose, Ages 12+ (Pfizer) 09/05/2021 COVID-19, MRNA-LNP, 23-24, P F, 30 MCG/0.3 mL, 12 YRS AND ABOVE, IM ([employer]-Comirnat) 01/16/2023 Covid-19, Mrna, Lnp-s, Pf, B ivalent, 30 Mcg, IM, 12 yrs and above ([employer]) 01/09/2022 PPD 02/25/2003 Pneumococcal Conjugate Vacc, [...] encounter Miscellaneous Notes * Addendum Note - Hua Langley, [facility] - 09/18/2023 1:13 PM EDTAddended by: HUA LANGLEY on: 09/18/2023 01:13 PM Modules accepted: Orders documented in this encounter Plan of Treatment Upcoming Encounters Date Type Department Care Team (Late st Contact Info) Description 09/18/2023 1:30 PM EDT Pharmacy Pharmacy Hematology Oncology [address] [address] [facility], [facility] Hem/[place]c [place] [address] 09/24/2023 11:00 AM EDT Nurse Only Hematology/Oncology [facility] [place] [address] [place] [phone] [place], Nurse Hem Onc [address] [place] [address] 09/24/2023 12:00 PM EDT Immunization/Inject ion Hematology/Oncology Treatment, [place] 200 [facility] [place] [phone] Nurse, Med [address] [facility] [place] [address] 01/07/2024 2:45 PM EDT Office Visit Hematology/Oncology [facility] [place] 200 [facility] [place] [phone] Morales Rodriguez MD 200 [facility] [place] [address] 03/16/2024 1:00 PM EST Office Visit Family Medicine [address] [place] [phone] Mahogany Valentin MD [address] [place] [address] [place] [address] 03/20/2024 1:30 PM EST Imaging Radiology [address] [place] [address] 04/13/2024 1:00 PM EST Nurse Only Ancillary [address] [place] [address] Roz, Nurse [address] [place] [address] Scheduled Orders Name Type Priority Associated Diagnoses Orde r Schedule CBC WITH WBC DIFFERENTIAL Lab STAT 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 breast in female, estrogen receptor positive (HCC) Other, Please specify in Comments field for 8 Occurrences starting 09/18/2023 until 09/17/2024 COMPREHENSIVE METABOLIC PANEL Lab STAT 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 breast in female, estrogen receptor positive (HCC) Other, Please specify in Comments field for 8 Occurrences starting 09/18/2023 until 09/17/2024 Scheduled Referrals Name Type Priority Associated Diagnoses Orde r Schedule PHARMACIST MEDS THERAPY MGMT REFERRAL OP Referral Within 10 days (routine) 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 breast in female, estrogen receptor positive (HCC) Ordered: 09/18/2023 Health Maintenance Due Date Last Done Comments [...] this encounter Medical Devices Implanted Type Area Hyperion Administrator Device Identifier Shelf Expiration Date Model / Serial / Lot Port Power Mri W/8fr Cath - [id number] Implanted:Qty : 1 on 05/25/2015 by Florence Mayfield MD at [facility] Left: Subclavian CR BARD : PERIPHERAL VASCULAR 08/17/2016 [id number] / / [id number] documented as of this encounter Visit Diagnoses Diagnosis 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 breast in female, estrogen receptor positive (HCC)- Primary documented in this encounter Care Teams Pvc Loader Relationship Specialty Start Date End Date Mahogany Valentin MD [address] [place] [address] [place] [address] PCP - General Family Medicine 01/23/17 documented as of this encounter
--- OUTSIDE RECORDS SUMMARY | 2023-12-20 21:10 | External Medical Summary | Summary of Care ---
Demographics Address [address] [place] [address] Home Phone Email Address Preferred Language Urdu Marital Status Unknown Bahai Affiliation Unknown Race White Ethnic Group Not or Lati no Author Name Unknown Organization [facility] Address [address] [facility] [address] Phone [phone] Care Team Providers Care Supervisor Corduroy Cutting Name Role Phone Mahogany Valentin MD Primary Care Provide r Reason for Visit * Reason Onset Date Comments Encounter Created in Error 09/17/2023 Encounter Details Date Type Department Care Team (Late st Contact Info) Description 09/17/2023 Telephone Hematology/Oncology [facility] 200 [place] [phone] Morales Rodriguez MD [facility] [address] Encounter Created in Error Allergies No known active allergiesdocumented as of [...] mRNA, LNP-s, No Pre serve, 2-Dose Series (GEOLID) 01/24/2021,06/29/2020,06/08/2020 COVID-19, LNP-s, No Preserve , Adam-sucrose, Ages 12+ (Pfizer) 09/05/2021 COVID-19, MRNA-LNP, 23-24, P F, 30 MCG/0.3 mL, 12 YRS AND ABOVE, IM (PFIZER-Comirnaty) 01/16/2023 Covid-19, Mrna, Lnp-s, Pf, B ivalent, 30 Mcg, IM, 12 yrs and above (GEOLID) 01/09/2022 PPD 02/25/2003 Pneumococcal Conjugate Vacc, 13 [...] 1:30 PM EDT Pharmacy Pharmacy Hematology Oncology [place] [address] [place] [address] [facility], [facility] Hem/Onc [address] [place] [address] 09/24/2023 11:00 AM EDT Nurse Only Hematology/Oncology [facility] [address] [place] [phone] [place]atha Nurse Hem Onc [place] [address] [place] [address] 09/24/2023 12:00 PM EDT Immunization/Inject ion Hematology/Oncology Treatment, [place] [facility] [phone] Nurse, Med 200 [facility] [place] [address] 01/07/2024 2:45 PM EDT Office Visit Hematology/Oncology [facility] 200 [facility] [phone] Morales Rodriguez MD 200 [facility] [place] [address] 03/16/2024 1:00 PM EST Office Visit Family Medicine [address] [phone] Mahogany Valentin MD [address] [place] [address] [place] [address] 03/20/2024 1:30 PM EST Imaging Radiology [address] [place] [address] 04/13/2024 1:00 PM EST Nurse Only Ancillary [address] [place] [address] Movveronicaey, Nurse Annual [address] [place] [address] Health Maintenance Due Date Last Done Comments [...] this encounter Medical Devices Implanted Type Area Gas Check Pad Maker Device Identifier Shelf Expiration Date Model / Serial / Lot Port Power Mri W/8fr Cath - [id number] Implanted:Qty : 1 on 05/25/2015 by Florence Mayfield MD at [facility] Left: Subclavian CR BARD : PERIPHERAL VASCULAR 08/17/2016 [id number] / / [id number] documented as of this encounter Care Teams Supervisor Corduroy Cutting Relationship Specialty Start Date End Date Mahogany Valentin MD [address] [place] [address] [place] [address] PCP - General Family Medicine 01/23/17 documented as of this encounter
--- OUTSIDE RECORDS SUMMARY | 2023-12-20 21:10 | External Medical Summary | Summary of Care ---
Demographics Address [address] [place] [address] Home Phone Email Address Preferred Language Turkish Marital Status Unknown Mandaen Affiliation Unknown Race White Ethnic Group Not or Lati no Author Name Unknown Organization [facility] Address [address] [facility] [place] [address] Phone [phone] Care Team Providers Care Game Author Name Role Phone Mahogany Valentin MD Primary Care Provide r Reason for Visit * Reason Onset Date Comments Pre Cert/Prior Auth 09/13/2023 Encounter Details Date Type Department Care Team (Late st Contact Info) Description 09/13/2023 Telephone Hematology/Oncology Treatment, [place] [address] [place] [address] Morales Rodriguez MD 200 [place] [address] Pre Cert/Prior Auth Allergies No known active [...] mRNA, LNP-s, No Pre serve, 2-Dose Series ([employer]) 01/24/2021,06/29/2020,06/08/2020 COVID-19, LNP-s, No Preserve , Adam-sucrose, Ages 12+ (Pfizer) 09/05/2021 COVID-19, MRNA-LNP, 23-24, P F, 30 MCG/0.3 mL, 12 YRS AND ABOVE, IM (PFIZER-Comirnaty) 01/16/2023 Covid-19, Mrna, Lnp-s, Pf, B ivalent, 30 Mcg, IM, 12 yrs and above ([employer]) 01/09/2022 PPD 02/25/2003 Pneumococcal Conjugate Vacc, 13 [...] Called and verifed prior authorization needed with [facility]. Concurrent Therapy: yes * Telephone Encounter [...] PM EDT Pharmacy Pharmacy Hematology Oncology [address] [address] [facility], [facility] Hem/Onc [address] [place] [address] 09/24/2023 11:00 AM EDT Nurse Only Hematology/Oncology [address] [place] [phone] Leatha, Nurse Hem Onc [address] [place] [address] 09/24/2023 12:00 PM EDT Immunization/Inject ion Hematology/Oncology Treatment, [address] [phone] Nurse, Med [address] [place] [address] [place] [address] 01/07/2024 2:45 PM EDT Office Visit Hematology/Oncology [facility], [address] [place] [phone] Morales Rodriguez MD [address] [place] [address] 03/16/2024 1:00 PM EST Office Visit Family Medicine [address] [place] [phone] Mahogany Valentin MD [address] [place] [address] [place] [address] 03/20/2024 1:30 PM EST Imaging Radiology [address] [place] [address] 04/13/2024 1:00 PM EST Nurse Only Ancillary [address] [place] [address] [place], Nurse Annual [address] [place] [address] Health Maintenance Due Date Last Done Comments [...] this encounter Medical Devices Implanted Type Area Data Analyst Etl Developer Device Identifier Shelf Expiration Date Model / Serial / Lot Port Power Mri W/8fr Cath - [id number] Implanted:Qty : 1 on 05/25/2015 by Florence Mayfield MD at OR [facility] Left: Subclavian CR BARD : PERIPHERAL VASCULAR 08/17/2016 [id number] / / [id number] documented as of this encounter Care Teams Game Author Relationship Specialty Start Date End Date Mahogany Valentin MD [address] [place] [address] [place] [phone] PCP - General Family Medicine 01/23/17 documented as of this encounter
--- OUTSIDE RECORDS SUMMARY | 2023-12-20 21:10 | External Medical Summary | Summary of Care ---
Author Name Unknown Organization [facility] Address [address] [place] [address] Phone [phone] Care Team Providers Care Mincing Machine Operator Name Role Phone Mahogany Valentin MD Primary Care Provide r Reason for Visit * Reason Comments Medication Management Encounter Details Date Type Department Care Team (Late st Contact Info) Description 09/18/2023 1:30 PM EDT Pharmacy Pharmacy Hematology Oncology [facility] [address] [place] [address] [facility], [facility] Hem/Onc [address] [place] [address] 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 [...] mRNA, LNP-s, No Pre serve, 2-Dose Series ([employer]) 01/24/2021,06/29/2020,06/08/2020 COVID-19, LNP-s, No Preserve , Adam-sucrose, Ages 12+ (Pfizer) 09/05/2021 COVID-19, MRNA-LNP, 23-24, P F, 30 MCG/0.3 mL, 12 YRS AND ABOVE, IM (PFIZER-Comirnaty) 01/16/2023 Covid-19, Mrna, Lnp-s, Pf, B ivalent, 30 Mcg, IM, 12 yrs and above ([employer]) 01/09/2022 Pneumococcal Conjugate Vacc, 13 Valent (Prevnar) [...] this encounter Progress Notes * Jenny Otto, [facility] - 09/18/2023 1:13 PM EDT Abemaciclib RX sent to [facility] for [facility] to help with financial assistance Ondansetron RX sent to [facility] to follow up in 2 days to assess financial assistance status Carlos EspinozaD, BCOP Clinical Pharmacist, [facility] Oral Chemotherapy [facility] 09/18/2023, 1:14 PM Time Spent on Encounter: 6 - 10 minutes Encounter Group: Oncology Encounter Interventions Item Category: Oral Chemotherapy Abemaciclib Problem/Rationale: [place] Plan Review: Clinical Review Pharmacist Intervention(s): Medication prescribed Magnitude of Intervention: Modification of medication for asymtomatic patients (Level 2) * Opal Jeter CPhT - 09/18/2023 9:56 AM EDT MEDICATION THERAPY MANAGEMENT ABEMACICLIB INITIAL INTAKE NOTE Kianna Raymundo [phone] Patient Phone Numbers Communication: Chart review Treatment: Medication: Abemaciclib (Verzenio) Indication/Staging/Diagnosis Code: ER+/IL-/HER2- breast cancer / Stage IIB / C50.412 Dose: 150mg BID Administration: +/- food Start Date: TBD Primary Public Works Manager/Oncologist: Dr. Otilia Rodriguez Supportive Care Meds: Fulvestrant Xgeva Ondansetron (to be ordered in beacon plan) Prophylactic Meds: See anticoagulation below Relevant Chronic Medications: Category Medications Pertinent Notes Anticoagulation Apixaban 5mg BID Pt hx The Hematology/Oncology Oral Chemotherapy Clinic will assess medication compliance at each patient encounter Yes/no Date Action Taken [place] plan entered? yes 09/13/23 Consent completed? yes 09/13/23 Intro/med rec completed? yes 09/17/23 Precert completed? yes 09/17/23 Test claim completed? yes 09/18/23 [facility] - $3,288.71 Financial assistance needed? yes Physician signature? yes 09/14/23 Rx released? Education completed? Will follow up in 2 days for patient assistance updates [facility] will contact patient once med shipped/received to complete medication education Please refer to initial intake note for detailed review of regimen and patient- specific education points Opal Jeter Physics Technical Officer III Hematology Oncology Oral Chemotherapy Clinic Medication Therapy Disease Management [facility] 09/18/2023 9:59 AM Time Spent on Encounter: 6 - 10 minutes Encounter Group: Oncology Encounter Interventions Item Category: Oral Chemotherapy Abemaciclib Problem/Rationale: Cost/Insurnce Issues Insurance - Other high copay Pharmacist Intervention(s): Patient assistance follow-up Magnitude of Intervention: Monitoring with no interventions (Level 0) documented in this encounter Plan of Treatment Upcoming Encounters Date Type Department Care Team (Late st Contact Info) Description 09/20/2023 1:45 PM EDT Pharmacy Pharmacy Hematology Oncology [facility] [address] [place] [address] [facility], [facility] Hem/Onc [address] [place] [address] 09/24/2023 11:00 AM EDT Nurse Only Hematology/Oncology [employer] 200 [facility] [place] [phone] [place], Nurse Hem Onc [address] [place] [address] 09/24/2023 12:00 PM EDT Immunization/Inject ion Hematology/Oncology Treatment, [address] [place] [phone] Nurse, Med 4 200 [facility] [place] [address] 01/07/2024 2:45 PM EDT Office Visit Hematology/Oncology [employer] 200 [facility] [place] [phone] Morales Rodriguez MD 200 [facility] [place] [address] 03/16/2024 1:00 PM EST Office Visit [address] [phone] Mahogany Valentin MD [address] [place] [address] [place] [address] 03/20/2024 1:30 PM EST Imaging Radiology [address] [place] [address] 04/13/2024 1:00 PM EST Nurse Only Ancillary [address] [place] [address] [place], Nurse Annual [address] [place] [address] Health Maintenance Due Date Last Done Comments [...] Medical Devices Implanted Type Area Director Of Clinical Trials Device Identifier Shelf Expiration Date Model / Serial / Lot Port Power Mri W/8fr Cath - [id number] Implanted:Qty : 1 on 05/25/2015 by Florence Mayfield MD at OR [facility] Left: Subclavian CR BARD : PERIPHERAL VASCULAR 08/17/2016 [id number] / / [id number] documented as of this encounter Visit Diagnoses Diagnosis 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 breast in female, estrogen receptor positive (HCC)- Primary documented in this encounter Care Teams Mincing Machine Operator Relationship Specialty Start Date End Date Mahogany Valentin MD [address] [place] [address] [place] [address] PCP - General Family Medicine 01/23/17 documented as of this encounter
--- OUTSIDE RECORDS SUMMARY | 2023-12-20 21:10 | External Medical Summary | Summary of Care ---
Demographics Address [address] [place] [place] [address] Home Phone Email Address Preferred Language Tajik Marital Status Unknown Mosque Affiliation Unknown Race White Ethnic Group Not or Lati no Author Name Unknown Organization [facility] Address [address] [facility] [address] Phone [phone] Care Team Providers Care Field Operations Technician Name Role Phone Mahogany Valentin MD Primary Care Provide r Reason for Visit * Reason Onset Date Comments Precert Denied 09/13/2023 Encounter Details Date Type Department Care Team (Late st Contact Info) Description 09/13/2023 Telephone Hematology/Oncology Treatment, [place] [address] [place] [address] Morales Rodriguez MD [address] [place] [address] Precert Denied Allergies No known active allergiesdocumented [...] on 09/17/2023 Apixaban 5 MG Oral Tablet (Eliquis) Take [...] mRNA, LNP-s, No Pre serve, 2-Dose Series ([employer]) 01/24/2021,06/29/2020,06/08/2020 COVID-19, LNP-s, No Preserve , Adam-sucrose, Ages 12+ ([employer]) 09/05/2021 COVID-19, MRNA-LNP, 23-24, P F, 30 MCG/0.3 mL, 12 YRS AND ABOVE, IM (Foneshow-Comirnat) 01/16/2023 Covid-19, Mrna, Lnp-s, Pf, B ivalent, 30 Mcg, IM, 12 yrs and above ([employer]) 01/09/2022 PPD 02/25/2003 Pneumococcal Conjugate Vacc, 13 [...] Encounter - Katrina Randhawa RN - 09/19/2023 1:25 PM EDT Images from the original note were not included. Per referral : "Cely Johnson, ABIGAIL P Pia Zhang Hem/Onc Nurse Pool/Class; P Hem/Onc Oral Chemotherapy Pharmacist Pool Kianna Raymundo request for [id number] Prior Auth EOC [id number], aborting due to This drug is excluded from coverage by the Medicare Part D program. The Social Security Act permits the exclusion of certain drugs or classes of drugs from coverage under Part D. A5 - Not Covered UnderPart D Law" MyG sent. * Telephone Encounter - Nilsa Baker LPN - 09/18/2023 10:46 AM EDT ICD-10: C79.51, C78.6, C78.7, E83.39 Start date: 09/13/2023 Drugs: Phos-Nak Oral Packet Multidisciplinary Clinic note: yes Physician: Dr. Morales Rodriguez Comments: Called and verifed prior authorization needed with [facility]. Concurrent Therapy: yes * Telephone Encounter - Nilsa Baker LPN - 09/17/2023 9:06 AM EDT Per [facility] message from patient, called and spoke with the Pharmacist at [facility]. He states a prior authorization is required [...] 1:45 PM EDT Pharmacy Pharmacy Hematology Oncology [address] [address] [facility], [facility] Hem/[place] [address] 09/24/2023 11:00 AM EDT Nurse Only Hematology/Oncology [facility] [address] [place] [address] [place], Nurse Hem Onc [facility] 200 [facility] [place] [address] 09/24/2023 12:00 PM EDT Immunization/Inject ion Hematology/Oncology Treatment, [place] 200 [facility] [place] [phone] Nurse, Med 200 [facility] [place] [address] 01/07/2024 2:45 PM EDT Office Visit Hematology/Oncology [facility] [place] [address] [place] [phone] Morales Rodriguez MD 200 [facility] [place] [address] 03/16/2024 1:00 PM EST Office Visit Family Medicine [address] [place] [phone] Mahogany Valentin MD [address] [place] [address] [place] [address] 03/20/2024 1:30 PM EST Imaging Radiology [address] [place] [address] 04/13/2024 1:00 PM EST Nurse Only Ancillary [address] [place] [address] [place], Nurse Annual Wellness [address] [place] [address] [place] [address] Health Maintenance Due Date Last Done Comments [...] this encounter Medical Devices Implanted Type Area Silk Screen Repairer Device Identifier Shelf Expiration Date Model / Serial / Lot Port Power Mri W/8fr Cath - [id number] Implanted:Qty : 1 on 05/25/2015 by Florence Mayfield MD at OR [facility] Left: Subclavian CR BARD : PERIPHERAL VASCULAR 08/17/2016 [id number] / / [id number] documented as of this encounter Care Teams Field Operations Technician Relationship Specialty Start Date End Date Mahogany Valentin MD [address] [place] [address] [place] [phone] PCP - General Family Medicine 01/23/17 documented as of this encounter
--- OUTSIDE RECORDS SUMMARY | 2023-12-20 21:10 | External Medical Summary | Summary of Care ---
Demographics Address [address] [place] [address] Home Phone Email Address Preferred Language Portuguese Marital Status Unknown Scientology Affiliation Unknown Race White Ethnic Group Not or Lati no Author Name Unknown Organization [facility] Address [address] [facility] [place] [address] Phone [phone] Care Team Providers Care Crane Operator Cab Name Role Phone Mahogany Valentin MD Primary Care Provide r Reason for Visit * Reason Onset Date Comments Advice 09/19/2023 Eliquis Encounter Details Date Type Department Care Team (Late st Contact Info) Description 09/19/2023 Telephone Hematology/Oncology [facility] [address] [place] [phone] Morales [facility] [address] Advice (Eliquis) Allergies No known active allergiesdocumented [...] mRNA, LNP-s, No Pre serve, 2-Dose Series ([employer]) 01/24/2021,06/29/2020,06/08/2020 COVID-19, LNP-s, No Preserve , Adam-sucrose, Ages 12+ (Pfizer) 09/05/2021 COVID-19, MRNA-LNP, 23-24, P F, 30 MCG/0.3 mL, 12 YRS AND ABOVE, IM (PFIZER-Comirnaty) 01/16/2023 Covid-19, Mrna, Lnp-s, Pf, B ivalent, 30 Mcg, IM, 12 yrs and above ([employer]) 01/09/2022 PPD 02/25/2003 Pneumococcal Conjugate Vacc, 13 [...] encounter Miscellaneous Notes * Telephone Encounter - Catalina Phillips, ABIGAIL - 09/20/2023 1:42 PM EDT Spoke with [...] Department Care Team (Latest Contact Info) Description 09/20/2023 1:45 PM EDT Pharmacy Pharmacy Hematology Oncology [address] [address] [facility], [facility] Hem/Onc [address] [place] [address] 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 breast in female, estrogen receptor positive (HCC)* 09/24/2023 11:00 AM EDT Nurse Only Hematology/Oncology [facility] [place] [address] [place] [phone] [place], Nurse Hem Onc Scene 200 [facility] [place] [address] 09/24/2023 12:00 PM EDT Immunization/Inje ction Hematology/Oncology Treatment, [place] [address] [place] [address] Nurse, Med [address] [place] [address] 09/25/2023 10:00 AM EDT Imaging Radiology [facility] [address] [facility] [place] [address] 09/25/2023 10:00 AM EDT Imaging Radiology [address] [place] [address] 09/25/2023 1:45 PM EDT Pharmacy Pharmacy Hematology Oncology [facility] [address] [place] [address] [address] [facility] Hem/Onc [address] [place] [address] 01/07/2024 2:45 PM EDT Office Visit Hematology/Oncology [facility] [place] [address] [place] [phone] Morales Rodriguez MD [address] [place] [address] 03/16/2024 1:00 PM EST Office Visit Family Medicine [address] [place] [phone] Mahogany Valentin MD [address] [place] [address] [place] [address] 03/20/2024 1:30 PM EST Imaging Radiology [address] [place] [address] 04/13/2024 1:00 PM EST Nurse Only Ancillary [address] [place] [address] [place], Nurse [address] [place] [address] Health Maintenance Due Date Last Done Comments DXA Scan 01/17/2023 01/18/2020, 05/04/2016 COVID-19 Vaccine (7 - 2023-24 season) 2023 01/16/2023, 01/09/2022, 09/05/2021, Additional history [...] this encounter Medical Devices Implanted Type Area Marketing Sales Supervisor Device Identifier Shelf Expiration Date Model / Serial / Lot Port Power Mri W/8fr Cath - [id number] Implanted:Qty : 1 on 05/25/2015 by Florence Mayfield MD at [facility] Left: Subclavian CR BARD : PERIPHERAL VASCULAR 08/17/2016 [id number] / / [id number] documented as of this encounter Care Teams Crane Operator Cab Relationship Specialty Start Date End Date Mahogany Valentin MD [address] [place] [address] [place] [address] PCP - General Family Medicine 01/23/17 documented as of this encounter
--- OUTSIDE RECORDS SUMMARY | 2023-12-20 21:10 | External Medical Summary | Summary of Care ---
Author Name Unknown Organization [facility] Address [address] [place] [address] Phone [phone] Care Team Providers Care Enhanced Environmental Operator Name Role Phone Mahogany Valentin MD Primary Care Provide r Reason for Visit * Reason Comments Medication Management * Evaluate & Treat - Unlimited Visits (Within 10 days (routine)) - Authorized Specialty Diagnoses / Procedures Referred By Truman acevedo Referred To Contact Pharmacist / Pharmacy Diagnoses 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 breast in female, estrogen receptor positive (HCC) Jenny Otto, [facility] [address] [place] [address] Referral ID Status Reason Start Date Expiration Date Visits Requested Visits Authorized [id number] Authorized Specialty Services Required 09/18/2023 99 99 Encounter Details Date Type Department Care Team (Late st Contact Info) Description 09/20/2023 1:45 PM EDT Pharmacy Pharmacy Hematology Oncology [facility] [address] [place] [address] [facility], [facility] Hem/Onc [address] [place] [address] 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 [...] mRNA, LNP-s, No Pre serve, 2-Dose Series ([employer]) 01/24/2021,06/29/2020,06/08/2020 COVID-19, LNP-s, No Preserve , Adam-sucrose, Ages 12+ ([employer]) 09/05/2021 COVID-19, MRNA-LNP, 23-24, P F, 30 [...] as of this encounter Progress Notes * Opal Jeter CPhT - 09/20/2023 9:31 AM EDT MEDICATION THERAPY MANAGEMENT ABEMACICLIB INITIAL INTAKE NOTE Kianna Raymundo [id number] Patient Phone Numbers Communication: Chart review Treatment: Medication: Abemaciclib (Verzenio) Indication/Staging/Diagnosis Code: ER+/[place]-/HER2- breast cancer / Stage IIB / C50.412 Dose: 150mg BID Administration: +/- food Start Date: TBD Primary Home Mission Worker/Oncologist: Dr. Otilia Rodriguez Supportive Care Meds: Fulvestrant Xgeva Ondansetron (to be ordered in beacon plan) Prophylactic Meds: See anticoagulation below Relevant Chronic Medications: Category Medications Pertinent Notes Anticoagulation Apixaban 5mg BID Pt hx The Hematology/Oncology Oral Chemotherapy Clinic will assess medication compliance at each patient encounter Yes/no Date Action Taken [place] plan entered? yes 09/13/23 Consent completed? yes 09/13/23 Intro/med rec completed? yes 09/17/23 Precert completed? yes 09/17/23 Test claim completed? yes 09/18/23 [facility]SP - $3,288.71 Financial assistance needed? yes Physician signature? yes 09/14/23 Rx released? Education completed? 09/19 - PACE application submitted 09/18. Pharmacy nanette and clinical systems analyst applications were also mailed. [facility] to follow up 09/24 Will follow up in 3 days for patient assistance updates [facility] will contact patient once med shipped/received to complete medication education Please refer to initial intake note for detailed review of regimen and patient- specific education points Opal Jeter Tool Smith III Hematology Oncology Oral Chemotherapy Clinic Medication Therapy Disease Management [facility] 09/20/2023 9:39 AM Time Spent on Encounter: < 5 minutes Encounter Group: Oncology Encounter Interventions Item Category: Oral Chemotherapy Abemaciclib Problem/Rationale: Cost/Insurnce Issues Insurance - Other high copay Pharmacist Intervention(s): Patient assistance follow-up Magnitude of Intervention: Monitoring with no interventions (Level 0) documented in this encounter Plan of Treatment Upcoming Encounters Date Type Department Care Team (Late st Contact Info) Description 09/24/2023 11:00 AM EDT Nurse Only Hematology/Oncology [facility] [place] [address] [place] [phone] [place], Nurse Hem Onc [facility] 200 [facility] [place] [address] 09/24/2023 12:00 PM EDT Immunization/Inject ion Hematology/Oncology Treatment, [place] [address] [facility] [place] [phone] Nurse, Med 4 200 [facility] [place] [address] 09/25/2023 10:00 AM EDT Imaging Radiology [address] [address] 09/25/2023 10:00 AM EDT Imaging Radiology [facility] [place] [address] 09/25/2023 1:45 PM EDT Pharmacy Pharmacy Hematology Oncology [facility] [address] [place] [address] [facility], [facility] Hem/Onc [address] [place] [address] 01/07/2024 2:45 PM EDT Office Visit Hematology/Oncology [facility] [place] [address] [place] [phone] Morales Rodriguez MD [address] [place] [address] 03/16/2024 1:00 PM EST Office Visit Family Medicine [address] [place] [phone] Mahogany Valentin MD [address] [place] [address] [place] [address] 03/20/2024 1:30 PM EST Imaging Radiology [address] [place] [address] 04/13/2024 1:00 PM EST Nurse Only Ancillary [address] [place] [address] [place], Nurse Annual [address] [place] [address] Scheduled Referrals Name Type Priority Associated Diagnoses [...] this encounter Medical Devices Implanted Type Area Animal Anatomist Device Identifier Shelf Expiration Date Model / Serial / Lot Port Power Mri W/8fr Cath - [id number] Implanted:Qty : 1 on 05/25/2015 by Florence Mayfield MD at OR [facility] Left: Subclavian CR BARD : PERIPHERAL VASCULAR 08/17/2016 [id number] / / [id number] documented as of this encounter Visit Diagnoses Diagnosis 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 breast in female, estrogen receptor positive (HCC)- Primary documented in this encounter Care Teams Enhanced Environmental Operator Relationship Specialty Start Date End Date Mahogany Valentin MD [address] [place] [address] [place] [address] PCP - General Family Medicine 01/23/17 documented as of this encounter
--- OUTSIDE RECORDS SUMMARY | 2023-12-20 21:10 | External Medical Summary | Summary of Care ---
Demographics Address [address] [place] [address] Home Phone Email Address Preferred Language Kiswahili Marital Status Unknown Nondenominational Affiliation Unknown Race White Ethnic Group Not or Lati no Author Name Unknown Organization [facility] Address [address] [facility] [place] [address] Phone [phone] Care Team Providers Care Peanut Salter Name Role Phone Mahogany Valentin MD Primary Care Provide r Reason for Visit * Reason Onset Date Comments Advice 09/19/2023 Eliquis Encounter Details Date Type Department Care Team (Late st Contact Info) Description 09/19/2023 Telephone Hematology/Oncology [facility] [address] [place] [phone] Morales Rodriguez MD [address] [facility] [address] Advice (Eliquis) Allergies No known active allergiesdocumented [...] mRNA, LNP-s, No Pre serve, 2-Dose Series (P2P-Next) 01/24/2021,06/29/2020,06/08/2020 COVID-19, LNP-s, No Preserve , Adam-sucrose, Ages 12+ (Pfizer) 09/05/2021 COVID-19, MRNA-LNP, 23-24, P F, 30 MCG/0.3 mL, 12 YRS AND ABOVE, IM (PFIZER-Comirnaty) 01/16/2023 Covid-19, Mrna, Lnp-s, Pf, B ivalent, 30 Mcg, IM, 12 yrs and above (P2P-Next) 01/09/2022 PPD 02/25/2003 Pneumococcal Conjugate Vacc, 13 [...] 1:45 PM EDT Pharmacy Pharmacy Hematology Oncology [address] [address] [facility], [facility] Hem/Onc [address] [place] [address] 09/24/2023 11:00 AM EDT Nurse Only Hematology/Oncology [facility] [address] [place] [phone] [place], Nurse Hem Onc [address] 200 [place] [address] 09/24/2023 12:00 PM EDT Immunization/Inject ion Hematology/Oncology Treatment, [place] [address] [place] [phone] Nurse, Med 4 [address] [place] [address] 09/25/2023 10:00 AM EDT Imaging Radiology [facility] 132 [facility] [place] [address] 09/25/2023 10:00 AM EDT Imaging Radiology [facility] 132 [facility] [place] [address] 01/07/2024 2:45 PM EDT Office Visit Hematology/Oncology [facility] 200 [facility] [place] [phone] Morales Rodriguez MD 200 [facility] [place] [address] 03/16/2024 1:00 PM EST Office Visit Family Medicine [address] [place] [phone] Mahogany Valentin MD [address] [place] [address] [place] [address] 03/20/2024 1:30 PM EST Imaging Radiology [address] [place] [address] 04/13/2024 1:00 PM EST Nurse Only Ancillary [address] [place] [address] [place], Nurse Annual Wellness [address] [place] [address] [place] [address] Health Maintenance Due Date Last Done Comments [...] this encounter Medical Devices Implanted Type Area Fountain Operator Device Identifier Shelf Expiration Date Model / Serial / Lot Port Power Mri W/8fr Cath - [id number] Implanted:Qty : 1 on 05/25/2015 by Florence Mayfield MD at [facility] Left: Subclavian CR BARD : PERIPHERAL VASCULAR 08/17/2016 [id number] / / [id number] documented as of this encounter Care Teams Peanut Salter Relationship Specialty Start Date End Date Mahogany Valentin MD [address] [place] [address] [place] [address] PCP - General Family Medicine 01/23/17 documented as of this encounter
--- OUTSIDE RECORDS SUMMARY | 2023-12-20 21:10 | External Medical Summary | Summary of Care ---
Demographics Address [address] [place] [address] Home Phone Email Address Preferred Language Sinhala Marital Status Unknown Mormon Affiliation Unknown Race White Ethnic Group Not or Lati no Author Name Unknown Organization [facility] [address] [facility] [address] Phone [phone] Care Team Providers Care Heating Element Winder Name Role Phone Mahogany Valentin MD Primary Care Provide r Reason for Visit * Reason Onset Date Comments Pre Cert/Prior Auth 09/13/2023 Encounter Details Date Type Department Care Team (Late st Contact Info) Description 09/13/2023 Telephone Hematology/Oncology Treatment, [place] [address] [place] [address] Morales Rodriguez MD [address] [place] [address] Pre Cert/Prior Auth Allergies No known active [...] mRNA, LNP-s, No Pre serve, 2-Dose Series (AcadiaSoft) 01/24/2021,06/29/2020,06/08/2020 COVID-19, LNP-s, No Preserve , Adam-sucrose, Ages 12+ (Pfizer) 09/05/2021 COVID-19, MRNA-LNP, 23-24, P F, 30 MCG/0.3 mL, 12 YRS AND ABOVE, IM (PFIZER-Comirnaty) 01/16/2023 Covid-19, Mrna, Lnp-s, Pf, B ivalent, 30 Mcg, IM, 12 yrs and above (AcadiaSoft) 01/09/2022 PPD 02/25/2003 Pneumococcal Conjugate Vacc, 13 [...] Called and verifed prior authorization needed with [facility]. Concurrent Therapy: yes * Telephone Encounter - Nilsa Baker LPN - 09/17/2023 9:06 AM EDT Per My Merter message from patient, called and spoke with the Pharmacist at [facility]. He states a prior authorization [...] 1:30 PM EDT Pharmacy Pharmacy Hematology Oncology [address] [address] [facility], [facility] Hem/Onc [address] [place] [address] 09/24/2023 11:00 AM EDT Nurse Only Hematology/Oncology [address] [place] [address] Leatha, Nurse Hem Onc [address] [place] [address] 09/24/2023 12:00 PM EDT Immunization/Inject ion Hematology/Oncology Treatment, [address] [phone] Nurse, Med [address] [place] [address] [place] [address] 01/07/2024 2:45 PM EDT Office Visit Hematology/Oncology [facility], [address] [place] [address] Morales Rodriguez MD [address] [place] [address] 03/16/2024 1:00 PM EST Office Visit Family Medicine [address] [place] [address] Mahogany Valentin MD [address] [place] [address] [place] [address] 03/20/2024 1:30 PM EST Imaging Radiology [address] [place] [address] 04/13/2024 1:00 PM EST Nurse Only Ancillary [address] [place] [address] [place], Nurse Annual [address] [place] [address] Health Maintenance Due Date Last Done Comments [...] this encounter Medical Devices Implanted Type Area Carpenter Helper Device Identifier Shelf Expiration Date Model / Serial / Lot Port Power Mri W/8fr Cath - [id number] Implanted:Qty : 1 on 05/25/2015 by Florence Mayfield MD at OR [facility] Left: Subclavian CR BARD : PERIPHERAL VASCULAR 08/17/2016 [id number] / / [id number] documented as of this encounter Care Teams Heating Element Winder Relationship Specialty Start Date End Date Mahogany Valentin MD [address] [place] [address] [place] [phone] PCP - General Family Medicine 01/23/17 documented as of this encounter
--- OUTSIDE RECORDS SUMMARY | 2023-12-20 21:10 | External Medical Summary | Summary of Care ---
Demographics Address [address] [place] [address] Home Phone Email Address Preferred Language Albanian Marital Status Unknown Anglican Affiliation Unknown Race White Ethnic Group Not or Lati no Author Name Unknown Organization [facility] Address [address] [place] [address] Phone [phone] Care Team Providers Care Corporate Compliance Director Name Role Phone Mahogany Valentin MD Primary Care Provide r Reason for Visit * Reason Onset Date Comments Advice 09/20/2023 Dr. Rodriguez Encounter Details Date Type Department Care Team (Late st Contact Info) Description 09/20/2023 Telephone Hematology/Oncology [facility] [address] [facility] [place] [address] Services, Scheduling [address] [place] [address] Advice (Dr. Rodriguez ) Allergies No known active allergiesdocumented as [...] mRNA, LNP-s, No Pre serve, 2-Dose Series (CoTweet) 01/24/2021,06/29/2020,06/08/2020 COVID-19, LNP-s, No Preserve , Adam-sucrose, Ages 12+ (Pfizer) 09/05/2021 COVID-19, MRNA-LNP, 23-24, P F, 30 MCG/0.3 mL, 12 YRS AND ABOVE, IM (PFIZER-Comirnaty) 01/16/2023 Covid-19, Mrna, Lnp-s, Pf, B ivalent, 30 Mcg, IM, 12 yrs and above (CoTweet) 01/09/2022 Pneumococcal Conjugate Vacc, 13 Valent (Prevnar) [...] Telephone Encounter - Katrina Randhawa RN - 09/20/2023 12:[address] Rodriguez's office note 09/13/23: "Would like to discontinue Anastrozole " Left message for patient that I would send MyG. * Telephone Encounter - Lida Jeffries OSA - 09/20/2023 11:17 AM EDT Patient is calling to see if she should continue taking the Anastrozole 1 MG Oral Tablet (Arimidex). Patient is currently still taking medication and it is on discontinued med list. documented in this encounter Plan of Treatment Upcoming Encounters Date Type Department Care Team (Late st Contact Info) Description 09/20/2023 1:45 PM EDT Pharmacy Pharmacy Hematology Oncology [address] [address] [facility], [facility] Hem/Onc [address] [place] [place] [address] 09/24/2023 11:00 AM EDT Nurse Only Hematology/Oncology [facility] [place] [address] [place] [phone] [place], Nurse Hem Onc Scen[address] 200 [facility] [place] [address] 09/24/2023 12:00 PM EDT Immunization/Inject ion Hematology/Oncology Treatment, [place] [address] [place] [phone] Nurse, Med 4 [address] [place] [address] 09/25/2023 10:00 AM EDT Imaging Radiology [facility] [address] [facility] [place] [address] 09/25/2023 10:00 AM EDT Imaging Radiology [address] 132 [facility] [place] [address] 01/07/2024 2:45 PM EDT Office [facility] 200 [facility] [place] [phone] Morales Rodriguez MD 200 [facility] [place] [address] 03/16/2024 1:00 PM EST Office Visit Family Medicine [address] [place] [phone] Mahogany Valentin MD [address] [place] [address] [place] [address] 03/20/2024 1:30 PM EST Imaging Radiology [address] [place] [address] 04/13/2024 1:00 PM EST Nurse Only Ancillary [address] [place] [address] [place], Nurse [address] [place] [address] Health Maintenance Due Date Last Done Comments [...] this encounter Medical Devices Implanted Type Area Oil Painter Device Identifier Shelf Expiration Date Model / Serial / Lot Port Power Mri W/8fr Cath - [id number] Implanted:Qty : 1 on 05/25/2015 by Florence Mayfield MD at [facility] Left: Subclavian CR BARD : PERIPHERAL VASCULAR 08/17/2016 [id number] / / [id number] documented as of this encounter Care Teams Corporate Compliance Director Relationship Specialty Start Date End Date Mahogany Valentin MD [address] [place] [address] [place] [phone] PCP - General Family Medicine 01/23/17 documented as of this encounter
--- OUTSIDE RECORDS SUMMARY | 2023-12-20 21:10 | External Medical Summary | Summary of Care ---
Demographics Address [address] [place] [address] Home Phone Email Address Preferred Language Luxembourgish Marital Status Unknown Taoist Affiliation Unknown Race White Ethnic Group Not or Lati no Author Name Unknown Organization [facility] Address [address] [facility] [place] [address] Phone [phone] Care Team Providers Care Circulating Process Inspector Name Role Phone Mahogany Valentin MD Primary Care Provide r Reason for Visit * Reason Onset Date Comments Medication Refill 09/18/2023 Encounter Details Date Type Department Care Team (Late st Contact Info) Description 09/18/2023 Refill Hematology/Oncology Treatment, [place] [address] [place] [phone] Morales Rodriguez MD 200 [place] [address] History of DVT (deep vein thrombosis)* Allergies No known active allergiesdocumented as of [...] before bedtime. 180 Tablet 1 09/18/2023 Active Apixaban 5 MG Oral Tablet (Eliquis) Take 1 Tablet by mouth in the morning and 1 Tablet before bedtime. 09/18/19 Discontinu ed(Refill) documented as of this encounter [...] mRNA, LNP-s, No Pre serve, 2-Dose Series (IZEA) 01/24/2021,06/29/2020,06/08/2020 COVID-19, LNP-s, No Preserve , Adam-sucrose, Ages 12+ (Pfizer) 09/05/2021 COVID-19, MRNA-LNP, 23-24, P F, 30 MCG/0.3 mL, 12 YRS AND ABOVE, IM (HyperStealth Biotechnology-Comirnat) 01/16/2023 Covid-19, Mrna, Lnp-s, Pf, B ivalent, 30 Mcg, IM, 12 yrs and above (IZEA) 01/09/2022 Pneumococcal Conjugate Vacc, 13 Valent (Prevnar) [...] Encounter - Katrina Randhawa RN - 09/18/2023 10:59 AM EDT Patient request rx for eliquis be sent to [facility] mail order. Per 09/13/23 office note "Eliquis for left lower extremity DVT started on 08/30/2023 (long-term anticoagulation). " documented in this encounter Plan of Treatment Upcoming Encounters Date Type Department Care Team (Late st Contact Info) Description 09/20/2023 1:45 PM EDT Pharmacy Pharmacy Hematology Oncology [facility] [address] [place] [address] [facility], [facility] Hem/Onc [address] [place] [address] 09/24/2023 11:00 AM EDT Nurse Only Hematology/Oncology [facility] [place] [address] [place] [phone] [place], Nurse Hem Onc [facility] 200 [facility] [place] [address] 09/24/2023 12:00 PM EDT Immunization/Inject ion Hematology/Oncology Treatment, [place] [facility] [place] [phone] Nurse, Med 4 200 [facility] [place] [address] 01/07/2024 2:45 PM EDT Office Visit Hematology/Oncology [facility] [place] [address] [place] [phone] Morales Rodriguez MD 200 [facility] [place] [address] 03/16/2024 1:00 PM EST Office Visit Family Medicine [address] [place] [phone] Mahogany Valentin MD [address] [place] [address] [place] [address] 03/20/2024 1:30 PM EST Imaging Radiology [address] [place] [address] 04/13/2024 1:00 PM EST Nurse Only Ancillary [address] [place] [address] Silvia[place]ley, Nurse Annual Wellness [address] [place] [address] [place] [address] Health Maintenance Due Date Last Done Comments [...] this encounter Medical Devices Implanted Type Area Education Managers Device Identifier Shelf Expiration Date Model / Serial / Lot Port Power Mri W/8fr Cath - [id number] Implanted:Qty : 1 on 05/25/2015 by Florence Mayfield MD at OR [facility] Left: Subclavian CR BARD : PERIPHERAL VASCULAR 08/17/2016 [id number] / / [id number] documented as of this encounter Visit Diagnoses Diagnosis History of DVT (deep vein thrombosis)- Primary Personal history of venous thrombosis and embolism documented in this encounter Care Teams Circulating Process Inspector Relationship Specialty Start Date End Date Mahogany Valentin MD [address] [place] [address] [place] [address] PCP - General Family Medicine 01/23/17 documented as of this encounter
--- OUTSIDE RECORDS SUMMARY | 2023-12-20 21:10 | External Medical Summary | Summary of Care ---
Demographics Address [address] [place] [address] Home Phone Email Address Preferred Language Irish Marital Status Unknown Amish Affiliation Unknown Race White Ethnic Group Not or Lati no Author Name Unknown Organization [facility] Address [address] [facility] [place] [address] Phone [phone] Care Team Providers Care Paper Cap Machine Operator Name Role Phone Mahogany Valentin MD Primary Care Provide r Reason for Visit * Reason Onset Date Comments Advice 09/19/2023 Eliquis Encounter Details Date Type Department Care Team (Late st Contact Info) Description 09/19/2023 Telephone Hematology/Oncology [facility] [address] [place] [phone] Morales Rodriguez [facility] [address] Advice (Eliquis) Allergies No known active allergiesdocumented [...] mRNA, LNP-s, No Pre serve, 2-Dose Series ([employer]) 01/24/2021,06/29/2020,06/08/2020 COVID-19, LNP-s, No Preserve , Adam-sucrose, Ages 12+ (Pfizer) 09/05/2021 COVID-19, MRNA-LNP, 23-24, P F, 30 MCG/0.3 mL, 12 YRS AND ABOVE, IM (PFIZER-Comirnaty) 01/16/2023 Covid-19, Mrna, Lnp-s, Pf, B ivalent, 30 Mcg, IM, 12 yrs and above (AudioCure Pharma) 01/09/2022 PPD 02/25/2003 Pneumococcal Conjugate Vacc, 13 [...] 1:45 PM EDT Pharmacy Pharmacy Hematology Oncology [address] [address] [facility], [facility] Hem/Onc [address] [place] [address] 09/24/2023 11:00 AM EDT Nurse Only Hematology/Oncology [facility] [address] [place] [phone] [place], Nurse Hem Onc [address] 200 [facility] [place] [address] 09/24/2023 12:00 PM EDT Immunization/Inject ion Hematology/Oncology Treatment, [place] [address] [place] [phone] Nurse, Med 4 [address] [place] [address] 09/25/2023 10:00 AM EDT Imaging Radiology [facility] 132 [facility] [place] [address] 09/25/2023 10:00 AM EDT Imaging Radiology [facility] 132 [facility] [place] [address] 01/07/2024 2:45 PM EDT Office Visit Hematology/Oncology [facility] 200 [facility] [place] [phone] Morales Rodriguez MD 200 [facility] [place] [address] 03/16/2024 1:00 PM EST Office Visit Family Medicine [address] [place] [phone] Mahogany Valentin MD [address] [place] [address] [place] [address] 03/20/2024 1:30 PM EST Imaging Radiology [address] [place] [address] 04/13/2024 1:00 PM EST Nurse Only Ancillary [address] [place] [address] [place], Nurse Annual Wellness [address] [place] [address] [place] [address] Health Maintenance Due Date Last Done Comments [...] this encounter Medical Devices Implanted Type Area Gradall Operator Device Identifier Shelf Expiration Date Model / Serial / Lot Port Power Mri W/8fr Cath - [id number] Implanted:Qty : 1 on 05/25/2015 by Florence Mayfield MD at [facility] Left: Subclavian CR BARD : PERIPHERAL VASCULAR 08/17/2016 [id number] / / [id number] documented as of this encounter Care Teams Paper Cap Machine Operator Relationship Specialty Start Date End Date Mahogany Valentin MD [address] [place] [address] [place] [address] PCP - General Family Medicine 01/23/17 documented as of this encounter
--- OUTSIDE RECORDS SUMMARY | 2023-12-20 21:11 | External Medical Summary | Summary of Care ---
Demographics Address [address] [place] [address] Home Phone Email Address Preferred Language Slovenian Marital Status Unknown Yazidism Affiliation Unknown Race White Ethnic Group Not or Lati no Author Name Unknown Organization [facility] Address [address] [facility] [address] Phone [phone] Care Team Providers Care X Ray Technologist Name Role Phone Mahogany Valentin MD Primary Care Provide r Reason for Visit * Reason Onset Date Comments Encounter Created in Error 09/17/2023 Encounter Details Date Type Department Care Team (Late st Contact Info) Description 09/17/2023 Telephone Hematology/Oncology [facility] 200 [facility] [place] [phone] Morales Rodriguez MD [facility] [address] Encounter Created in Error Allergies No known active allergiesdocumented as of this encounter (statuses as of 09/17/2023) Medications Medication Sig Dispensed Refills Start Date [...] as of this encounter (statuses as of 09/17/2023) Active Problems Problem Noted Date Diagnosed Date [...] as of this encounter (statuses as of 09/17/2023) Resolved Problems Problem Noted Date Diagnosed Date [...] as of this encounter (statuses as of 09/17/2023) Immunizations Name Administration Dates Next Due COVID-19 mRNA, LNP-s, No Pre serve, 2-Dose Series (ShotClip) 01/24/2021,06/29/2020,06/08/2020 COVID-19, LNP-s, No Preserve , Adam-sucrose, Ages 12+ (ShotClip) 09/05/2021 COVID-19, MRNA-LNP, 23-24, P F, 30 MCG/0.3 mL, 12 YRS AND ABOVE, IM (Mobilisafe-Comirnat) 01/16/2023 Covid-19, Mrna, Lnp-s, Pf, B ivalent, 30 Mcg, IM, 12 yrs and above (ShotClip) 01/09/2022 Pneumococcal Conjugate Vacc, 13 Valent (Prevnar) [...] Team (Late st Contact Info) Description 09/19/2023 1:30 PM EDT Pharmacy Pharmacy Hematology Oncology [facility] [address] [place] [address] [facility], [facility] Hem/Onc [address] [place] [address] 01/07/2024 2:45 PM EDT Office Visit Hematology/Oncology [facility] [address] [place] [phone] Morales Rodriguez MD [address] [place] [address] 03/16/2024 1:00 PM EST Office Visit Family Medicine [address] [place] [phone] Mahogany Valentin MD [address] [place] [address] [place] [address] 03/20/2024 1:30 PM EST Imaging Radiology [address] [place] [address] 04/13/2024 1:00 PM EST Nurse Only Ancillary [address] [place] [address] [place], Nurse Annual [address] [place] [address] Health Maintenance Due Date Last Done Comments [...] this encounter Medical Devices Implanted Type Area Senior Game Advisor Device Identifier Shelf Expiration Date Model / Serial / Lot Port Power Mri W/8fr Cath - [id number] Implanted:Qty : 1 on 05/25/2015 by Florence Mayfield MD at OR [facility] Left: Subclavian CR BARD : PERIPHERAL VASCULAR 08/17/2016 [id number] / / [id number] documented as of this encounter Care Teams X Ray Technologist Relationship Specialty Start Date End Date Mahogany Valentin MD [address] [place] [address] [place] [phone] PCP - General Family Medicine 01/23/17 documented as of this encounter
--- OUTSIDE RECORDS SUMMARY | 2023-12-20 21:11 | External Medical Summary | Summary of Care ---
Demographics Address [address] [place] [place] [address] Home Phone Email Address Preferred Language Pashto Marital Status Unknown Mormonism Affiliation Unknown Race White Ethnic Group Not or Lati no Author Name Unknown Organization [facility] Address [address] [facility] [place] [address] Phone [phone] Care Team Providers Care Heating Operators Engineer Name Role Phone Mahogany Valentin MD Primary Care Provide r Reason for Visit * Reason Onset Date Comments Encounter Created in Error 09/17/2023 Encounter Details Date Type Department Care Team (Late st Contact Info) Description 09/17/2023 Telephone Family Medicine [address] [phone] Mahogany Valentin MD [address] [place] [address] [place] [address] Encounter Created in Error Allergies No known [...] mRNA, LNP-s, No Pre serve, 2-Dose Series (Venyo) 01/24/2021,06/29/2020,06/08/2020 COVID-19, LNP-s, No Preserve , Adam-sucrose, Ages 12+ (Venyo) 09/05/2021 COVID-19, MRNA-LNP, 23-24, P F, 30 MCG/0.3 mL, 12 YRS AND ABOVE, IM (Kibin-Comirnat) 01/16/2023 Covid-19, Mrna, Lnp-s, Pf, B ivalent, 30 Mcg, IM, 12 yrs and above (Venyo) 01/09/2022 Pneumococcal Conjugate Vacc, 13 Valent (Prevnar) [...] 1:30 PM EDT Pharmacy Pharmacy Hematology Oncology [facility] [address] [place] [address] [facility], [facility], [facility] Hem/Onc [address] [place] [address] 01/07/2024 2:45 PM EDT Office Visit Hematology/Oncology [facility] [address] [place] [phone] Morales Rodriguez MD [address] [place] [address] 03/16/2024 1:00 PM EST Office Visit Family Medicine [address] [place] [phone] Mahogany Valentin MD [address] [place] [address] [place] [address] 03/20/2024 1:30 PM EST Imaging Radiology [address] [place] [address] 04/13/2024 1:00 PM EST Nurse Only Ancillary [address] [place] [address] [place], Nurse Annual [address] [place] [address] Health Maintenance Due Date Last Done Comments [...] this encounter Medical Devices Implanted Type Area Citrix Architect Device Identifier Shelf Expiration Date Model / Serial / Lot Port Power Mri W/8fr Cath - [id number] Implanted:Qty : 1 on 05/25/2015 by Florence Mayfield MD at OR [facility] Left: Subclavian CR BARD : PERIPHERAL VASCULAR 08/17/2016 [id number] / / [id number] documented as of this encounter Care Teams Heating Operators Engineer Relationship Specialty Start Date End Date Mahogany Valentin MD [address] [place] [address] [place] [phone] PCP - General Family Medicine 01/23/17 documented as of this encounter
--- OUTSIDE RECORDS SUMMARY | 2023-12-20 21:11 | External Medical Summary | Summary of Care ---
Demographics Address [address] [place] [address] Home Phone Email Address [email or web address] Preferred Language Korean Marital Status Unknown Anabaptism Affiliation Unknown Race White Ethnic Group Not or Lati no Author Name Unknown Organization [facility] Address [address] [facility] [address] Phone [phone] Care Team Providers Care Shipyard Painter Apprentice Name Role Phone Mahogany Valentin MD Primary Care Provide r Reason for Visit * Reason Onset Date Comments Test Results 09/13/2023 Encounter Details Date Type Department Care Team (Late st Contact Info) Description 09/13/2023 Telephone Hematology/Oncology Treatment, [place] [address] [place] [address] Morales Rodriguez MD 200 [place] [address] Test Results Allergies No known active allergiesdocumented [...] the morning. 30 Packet 3 09/13/2023 Active documented as of this encounter (statuses [...] mRNA, LNP-s, No Pre serve, 2-Dose Series ([employer] 01/24/2021,06/29/2020,06/08/2020 COVID-19, LNP-s, No Preserve , Adam-sucrose, Ages 12+ ([employer] 09/05/2021 COVID-19, MRNA-LNP, 23-24, P F, 30 MCG/0.3 mL, 12 YRS AND ABOVE, IM ([facility]) 01/16/2023 Covid-19, Mrna, Lnp-s, Pf, B ivalent, 30 Mcg, IM, 12 yrs and above ([employer] 01/09/2022 PPD 02/25/2003 Pneumococcal Conjugate Vacc, 13 [...] - 09/17/2023 9:06 AM EDT Per [facility] message from patient, called and spoke with the Pharmacist at [facility]. He states a prior authorization is required [...] Team (Late st Contact Info) Description 09/17/2023 1:15 PM EDT Pharmacy Pharmacy Hematology Oncology [address] [address] [facility] [place] Hem/Onc [address] [place] [address] 09/19/2023 1:30 PM EDT Pharmacy Pharmacy Hematology Oncology [address] [address] [facility] [place] Hem/Onc [address] [place] [address] 01/07/2024 2:45 PM EDT Office Visit Hematology/Oncology [address] [place] [phone] Morales Rodriguez MD 200 [facility] [place] [address] 03/16/2024 1:00 PM EST Office Visit Family Medicine [address] [place] [phone] Mahogany Valentin MD [address] [place] [address] [place] [address] 03/20/2024 1:30 PM EST Imaging Radiology [address] [place] [address] 04/13/2024 1:00 PM EST Nurse Only Ancillary [address] [place] [address] Sil[place]ley, Nurse [address] [place] [address] Health Maintenance Due Date Last Done Comments [...] encounter Medical Devices Implanted Type Area Auto Fleet Manager Device Identifier Shelf Expiration Date Model / Serial / Lot Port Power Mri W/8fr Cath - [id number] Implanted:Qty : 1 on 05/25/2015 by Florence Mayfield MD at [facility] Left: Subclavian CR BARD : PERIPHERAL VASCULAR 08/17/2016 [id number] / / [id number] documented as of this encounter Care Teams Shipyard Painter Apprentice Relationship Specialty Start Date End Date Mahogany Valentin MD [address] [place] [address] [place] [phone] PCP - General Family Medicine 01/23/17 documented as of this encounter
--- OUTSIDE RECORDS SUMMARY | 2023-12-20 21:11 | External Medical Summary | Summary of Care ---
Demographics Address [address] [place] [address] Home Phone Email Address Preferred Language Thai Marital Status Unknown Adventist Affiliation Unknown Race White Ethnic Group Not or Lati no Author Name Unknown Organization [facility] Address [address] [facility] [place] [address] Phone [phone] Care Team Providers Care Radio Station Engineer Name Role Phone Mahogany Valentin MD Primary Care Provide r Reason for Visit * Reason Onset Date Comments Precert Future 09/13/2023 Faslodex, verzen io Encounter Details Date Type Department Care Team (Late st Contact Info) Description 09/13/2023 Telephone Hematology/Oncology Treatment, [place] [address] [place] [address] Morales Rodriguez MD [address] [place] [address] Precert Future (Faslodex, verzenio) Allergies No known [...] morning and 1 Tablet before bedtime. Active Anastrozole 1 MG Oral Tablet (Arimidex)Indicat ions: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 breast in female, estrogen receptor positive (HCC) Take 1 Tablet by mouth in the morning. 100 Tablet 3 04/02/2023 09/13/2023 Discontinued (Medication List Clean Up) documented as of this encounter (statuses as [...] mRNA, LNP-s, No Pre serve, 2-Dose Series ([employer]) 01/24/2021,06/29/2020,06/08/2020 COVID-19, LNP-s, No Preserve , Adam-sucrose, Ages 12+ ([employer]) 09/05/2021 COVID-19, MRNA-LNP, 23-24, P F, 30 MCG/0.3 mL, 12 YRS AND ABOVE, IM ([facility]) 01/16/2023 Covid-19, Mrna, Lnp-s, Pf, B ivalent, 30 Mcg, IM, 12 yrs and above ([employer]) 01/09/2022 PPD 02/25/2003 Pneumococcal Conjugate Vacc, 13 [...] EDT Order received for verzenio, faslodex, xgeva. [place] plan built. Waiting for auth. Consent signed 09/13/23. Order forwarded to [facility]. Patient is going for hep [...] 1:15 PM EDT Pharmacy Pharmacy Hematology Oncology [address] [address] [facility] [place] [place], [facility] Hem/Onc [address] [place] [address] 09/19/2023 1:30 PM EDT Pharmacy Pharmacy Hematology Oncology [address] [address] [facility] [place] [place], [facility] Hem/Onc [address] [place] [address] 01/07/2024 2:45 PM EDT Office Visit Hematology/Oncology [address] [place] [phone] Morales Rodriguez MD 200 [facility] [place] [address] 03/16/2024 1:00 PM EST Office Visit Family Medicine [address] [place] [phone] Mahogany Valentin MD [address] [place] [address] [place] [address] 03/20/2024 1:30 PM EST Imaging Radiology [address] [place] [address] 04/13/2024 1:00 PM EST Nurse Only Ancillary [facility] [address] [place] [address] [place], Nurse Annual [address] [place] [address] Health Maintenance Due Date Last Done Comments [...] this encounter Medical Devices Implanted Type Area Metal Bonding Assembler Device Identifier Shelf Expiration Date Model / Serial / Lot Port Power Mri W/8fr Cath - [id number] Implanted:Qty : 1 on 05/25/2015 by Florence Mayfield MD at OR [facility] Left: Subclavian CR BARD : PERIPHERAL VASCULAR 08/17/2016 [id number] / / [id number] documented as of this encounter Care Teams Radio Station Engineer Relationship Specialty Start Date End Date Mahogany Valentin MD [address] [place] [address] [place] [address] PCP - General Family Medicine 01/23/17 documented as of this encounter
--- OUTSIDE RECORDS SUMMARY | 2023-12-20 21:11 | External Medical Summary | Summary of Care ---
Demographics Address [address] [place] [address] Home Phone Email Address Preferred Language Hungarian Marital Status Unknown Orthodoxy Affiliation Unknown Race White Ethnic Group Not or Lati no Author Name Unknown Organization [facility] Address [address] [facility] [place] [address] Phone [phone] Care Team Providers Care Needle Punch Machine Operator Helper Name Role Phone Mahogany Valentin MD Primary Care Provide r Reason for Visit * Reason Onset Date Comments Precert Future 09/13/2023 Faslodex, verzen io Encounter Details Date Type Department Care Team (Late st Contact Info) Description 09/13/2023 Telephone Hematology/Oncology Treatment, [place] [address] [place] [address] Morales Rodriguez MD [address] [place] [address] Precert Future (Faslodex, verzenio) Allergies No known active allergiesdocumented as of this encounter (statuses as of 09/13/2023) Medications Medication Sig Dispensed Refills Start Date [...] as of this encounter (statuses as of 09/13/2023) Active Problems Problem Noted Date Diagnosed Date [...] as of this encounter (statuses as of 09/13/2023) Resolved Problems Problem Noted Date Diagnosed Date [...] as of this encounter (statuses as of 09/13/2023) Immunizations Name Administration Dates Next Due COVID-19 mRNA, LNP-s, No Pre serve, 2-Dose Series ([employer]) 01/24/2021,06/29/2020,06/08/2020 COVID-19, LNP-s, No Preserve , Adam-sucrose, Ages 12+ ([employer]) 09/05/2021 COVID-19, MRNA-LNP, 23-24, P F, 30 MCG/0.3 mL, 12 YRS AND ABOVE, IM ([facility]) 01/16/2023 Covid-19, Mrna, Lnp-s, Pf, B ivalent, 30 Mcg, IM, 12 yrs and above ([employer]) 01/09/2022 PPD 02/25/2003 Pneumococcal Conjugate Vacc, 13 [...] EDT Order received for verzenio, faslodex, xgeva. [place] plan built. Waiting for auth. Consent signed 09/13/23. Order forwarded to [facility]. Patient is going for hep B [...] 1:15 PM EDT Pharmacy Pharmacy Hematology Oncology [facility], [place] [address] [place] [address] [facility] [place], [facility] Hem/[place] [address] 09/19/2023 1:30 PM EDT Pharmacy Pharmacy Hematology Oncology [place] [address] [place] [address] [facility] [place], [facility] Hem/[place]c [place] [address] 01/07/2024 2:45 PM EDT Office Visit Hematology/Oncology [facility] [place] [address] [facility] [place] [phone] Morales Rodriguez MD [address] [place] [address] 03/16/2024 1:00 PM EST Office Visit Family Medicine [address] [place] [phone] Mahogany Valentin MD [address] [place] [address] [place] [address] 03/20/2024 1:30 PM EST Imaging Radiology [address] [place] [address] 04/13/2024 1:00 PM EST Nurse Only Ancillary [address] [place] [address] [place], Nurse Annual [address] [place] [address] Health Maintenance Due Date Last Done Comments [...] this encounter Medical Devices Implanted Type Area Conference Services Coordinator Device Identifier Shelf Expiration Date Model / Serial / Lot Port Power Mri W/8fr Cath - [id number] Implanted:Qty : 1 on 05/25/2015 by Florence Mayfield MD at OR [facility] Left: Subclavian CR BARD : PERIPHERAL VASCULAR 08/17/2016 [id number] / / [id number] documented as of this encounter Care Teams Needle Punch Machine Operator Helper Relationship Specialty Start Date End Date Mahogany Valentin MD [address] [place] [address] [place] [phone] PCP - General Family Medicine 01/23/17 documented as of this encounter
--- OUTSIDE RECORDS SUMMARY | 2023-12-20 21:11 | External Medical Summary | Summary of Care ---
Demographics Address [address] [place] [address] Home Phone Email Address Preferred Language Slovak Marital Status Unknown Taoism Affiliation Unknown Race White Ethnic Group Not or Lati no Author Name Unknown Organization [facility] Address [address] [facility] [address] Phone [phone] Care Team Providers Care Hazmat Technician Name Role Phone Mahogany Valentin MD Primary Care Provide r Encounter Details Date Type Department Care Team (Late st Contact Info) Description 09/17/2023 Telephone Hematology/Oncology [facility] [place] [address] [place] [address] Morales Rodriguez MD [address] [facility] [address] Allergies No known active allergiesdocumented as of [...] mRNA, LNP-s, No Pre serve, 2-Dose Series ([employer]) 01/24/2021,06/29/2020,06/08/2020 COVID-19, LNP-s, No Preserve , Adam-sucrose, Ages 12+ ([employer]) 09/05/2021 COVID-19, MRNA-LNP, 23-24, P F, 30 MCG/0.3 mL, 12 YRS AND ABOVE, IM ([facility]) 01/16/2023 Covid-19, Mrna, Lnp-s, Pf, B ivalent, 30 Mcg, IM, 12 yrs and above ([employer]) 01/09/2022 Pneumococcal Conjugate Vacc, 13 Valent (Prevnar) [...] encounter Miscellaneous Notes * Telephone Encounter - Gauri Emmanuel OSA - 09/17/2023 9:35 AM EDT US GUIDED BREAST BIOPSY LEFT [[id number]] (Order [id number]) Associated Diagnoses 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 breast in female, estrogen receptor positive (HCC) [C50.412, Z17.0] - Primary Metastasis to bone (HCC) [C79.51] Peritoneal carcinomatosis (HCC) [C78.6] 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 [address] [place] [address] [facility], [facility] Hem/Onc [address] [place] [address] 01/07/2024 2:45 PM EDT Office Visit Hematology/Oncology [facility] [address] [facility] [place] [phone] Morales Rodriguez MD 200 [facility] [place] [address] 03/16/2024 1:00 PM EST Office Visit Family Medicine [address] [place] [phone] Mahogany Valentin MD [address] [place] [address] [place] [address] 03/20/2024 1:30 PM EST Imaging Radiology [address] [place] [address] 04/13/2024 1:00 PM EST Nurse Only Ancillary [address] [place] [address] [place], Nurse Annual Wellness [address] [place] [address] [place] [address] Health Maintenance Due Date Last Done Comments [...] this encounter Medical Devices Implanted Type Area General Duty Nurse Device Identifier Shelf Expiration Date Model / Serial / Lot Port Power Mri W/8fr Cath - [id number] Implanted:Qty : 1 on 05/25/2015 by [facility] at [facility] Left: Subclavian CR BARD : PERIPHERAL VASCULAR 08/17/2016 [id number] / / [id number] documented as of this encounter Care Teams Hazmat Technician Relationship Specialty Start Date End Date Mahogany Valentin MD [address] [place] [address] [place] [address] PCP - General Family Medicine 01/23/17 documented as of this encounter
--- OUTSIDE RECORDS SUMMARY | 2023-12-20 21:11 | External Medical Summary | Summary of Care ---
Demographics Address [address] [place] [address] Home Phone Email Address Preferred Language Khmer Marital Status Unknown Denominational Affiliation Unknown Race White Ethnic Group Not or Lati no Author Name Unknown Organization [facility] Address [address] [facility] [place] [address] Phone [phone] Care Team Providers Care Compensation And Benefits Advisor Name Role Phone Mahogany Valentin MD Primary Care Provide r Reason for Visit * Reason Comments Follow Up review Encounter Details Date Type Department Care Team (Latest Contact Info) Description 09/13/2023 10:15 AM EDT Office Visit Hematology/Oncology [facility] [place] [address] [facility] [place] [address] Morales Rodriguez MD [address] [facility] [place] [address] 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 breast in female, estrogen receptor positive (HCC)*; Metastasis to bone (HCC); Peritoneal carcinomatosis (HCC); Metastasis to liver (HCC) Allergies No known active allergiesdocumented as [...] mRNA, LNP-s, No Pre serve, 2-Dose Series ([email or web address]) 01/24/2021,06/29/2020,06/08/2020 COVID-19, LNP-s, No Preserve , Adam-sucrose, Ages 12+ ([email or web address].in) 09/05/2021 COVID-19, MRNA-LNP, 23-24, P F, 30 MCG/0.3 mL, 12 YRS AND ABOVE, IM (PFIZER-Comirnaty) 01/16/2023 Covid-19, Mrna, Lnp-s, Pf, B ivalent, 30 Mcg, IM, 12 yrs and above ([email or web address]) 01/09/2022 Pneumococcal Conjugate Vacc, 13 Valent (Prevnar) [...] Sign Reading Time Taken Comments Blood Pressure 162/83 09/13/2023 9:54 AM EDT Pulse 86 09/13/2023 9:54 AM EDT Temperature 36.1 C (96.9 F) 09/13/2023 9:54 AM ED T Respiratory Rate 17 09/13/2023 9:54 AM EDT Oxygen Saturation 93% 09/13/2023 9:54 AM EDT Inhaled Oxygen Concentration - - Weight 66.1 kg (145 lb 12.8 oz) 09/13/2023 9:54 AM EDT Height - - Body Mass Index 26.67 09/10/2023 9:49 AM EDT documented in this encounter Progress Notes * Morales Rodriguez MD - 09/13/2023 10:15 AM EDT 78-year female, a case of left breast lobular carcinoma, S/P lumpectomy and sentinel lymph suresh biopsy, S/P adjuvant chemotherapy HEMATOLOGY/ONCOLOGY DIAGNOSIS: Left upper outer quadrant infiltrating lobular carcinoma, ER 100%, TX negative, Her-2 negative, Stage II B, T2N1a Suspected to have recurrent disease involving the peritoneum, retroperitoneal region, bone ( L4 vertebral body) (August 2023). -hypercalcemia.(August 2023).She received 1 dose of Zometa at [facility] when she was seen at [facility] ER on 08/30/2023 DATE OF DIAGNOSIS: 03/16/2015 TREATMENT RENDERED: Lumpectomy with SLNB on 05/04/15 followed by adjuvant A/C x 4 (every 3 weeks) + weekly Taxol x 12 (at cycle 8 dose decreased from 80 mg/m2 to 60 mg/m2 due to neuropathy) - Anastrozole between April 2016 - August of 2023. Discontinued because of disease progression). CURRENT TREATMENT: -planning for Faslodex and Abemaciclib - Xgeva every 4 weekly - Eliquis for left lower extremity DVT started on 08/30/2023 (long-term anticoagulation). Interval history: She has come the clinic for the follow-up, she came to clinic by herself. Currently she is on Anastrozole 1 mg per day, Recently she started having increasing pain and some burning sensation left leg and some swelling, she was then seen at [facility] ER on 08/30/2023, found to have left lower extremity DVT, also found to have peritoneal carcinomatosis, retroperitoneal mass which was causing some mild bilateral hydronephrosis, hypercalcemia at that time. She has some constipation for the last 2 weeks, she says she has tried practically everything that she can take [id number], vomited once, no distention of the abdomen, no fever, fair appetite, current weight around 152 lb, no headache. No bleeding from the sites, currently she is on Eliquis, left leg swelling improved to some extent, Patient Active Problem List Diagnosis ADVANCE DIRECTIVE INFORMATION Dyslipidemia, goal LDL below 160 Encounter for antineoplastic chemotherapy Chemotherapy-induced neuropathy (HCC) Age-related nuclear cataract, left Malignant neoplasm of central portion of left breast in female, estrogen receptor positive (HCC) History of DVT (deep vein thrombosis) 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 breast in female, estrogen receptor positive (HCC) Anxiety, generalized Granuloma annulare Past Surgical History Procedure Laterality Date Carpal tunnel surgery 1982 left Mastectomy, partial Left 05/04/2015 05/04/2015 MASTECTOMY PARTIAL performed by Florence Mayfield MD at [facility] Identify sentinel node, radioactive tracer Left 05/04/2015 INJECTION PROCEDURE FOR IDENTIFICATION SENTINEL NODE performed by lForence Mayfield MD at [facility] Bx lymph node deep axil Left 05/04/2015 BIOPSY LYMPH NODE DEEP AXILLARY OPEN performed by Florence Mayfield MD at [facility] Adjacent tissue trans >10sqcm trunk Left 05/04/2015 ADJACENT TISSUE TRANSFER TRUNK 10.1 TO 30SQ CM performed by Florence Mayfield MD at [facility] Inser tunn acc dev;5 yrs/older Right 05/25/2015 05/25/2015 INSERT TUNNELED CENTRAL VENOUS ACCESS WITH SUBQ PORT performed by Florence Mayfield MD at [facility] Social History Social History Main Topics Smoking status: Former Smoker Packs/day: 0.50 Years: 30.00 Quit date: 05/26/2015 Smokeless tobacco: Never Used Comment: 5-6 cig/day, Cut down from 1 pack a day. Alcohol use No Comment: Quit 29 years ago Drug use: No Review of patient's allergies indicates: No Known Allergies Current Outpatient Medications Medication Sig Dispense Refill Acetaminophen 325 MG Oral Capsule Take by mouth. Anastrozole 1 MG Oral Tablet (Arimidex) Take 1 Tablet by mouth in the morning. 100 Tablet 3 Venlafaxine HCl ER 150 MG Oral Capsule Extended Release 24 Hour (Effexor XR) TAKE ONE CAPSULE BY MOUTH EVERY DAY 100 Capsule 1 Pravastatin Sodium 80 MG Oral Tablet TAKE ONE TABLET BY MOUTH EVERY DAY 90 Tablet 1 Apixaban 5 MG Oral Tablet (Eliquis) Take 1 Tablet by mouth in the morning and 1 Tablet before bedtime. No current facility-administered medications for this visit. OBJECTIVE: On exam: LMP 01/07/1999 LMP 01/07/1999 Constitutional: Patient is alert, cooperative and oriented. Patient is in no acute distress. Neck: No cervical or supraclavicular adenopathy. Lungs: Clear to auscultation posteriorly bilaterally. No wheezing or rhonchi. Cardiovascular: Regular rate and rhythm. Abdomen: Nontender and nondistended to palpation. The liver and spleen were not palpable. Lymphatic: No axillary adenopathy. Neurological: No gross focal neurological deficit; walks with a normal gait. Extremities: No leg edema, no finger clubbing. Integumentary: No skin rash. No palpable lymphadenopathy in the axilla No upper extremity lymphedema. LABS: Blood workup done on 09/02/2023: -WBC 8800, H&H of 12.4/37.6, Platelet count of 194997 -BUN/Creat: 8/0.8, AST 47, ALT 18, alkaline phosphatase 132, bilirubin level 0.3 -magnesium level --> 2.3 -Bone density done in April, showed T-score at lumbar spine-1.5 and at left femoral neck-2.1. -CT scan of the chest done in June, showed stable lung nodules. -CT scan of the chest done without intravenous contrast on 02/04/2017 showed stable bilateral lung nodules, no new lung nodules noted. Bilateral Duplex from 08/22/2017: Extensive left lower extremity deep venous thrombosis from at leastthe common femoral vein caudally into the proximal calf veins. No DVT is demonstrated in the right common femoral vein. CTA chest from 08/22/2017: No PE. No suspicious pulmonary nodules or adenopathy. Postoperative changes in left breast. CT abdomen/pelvis from 08/23/2017: No metastatic disease in abd/pelvis, limited study without contrast. Protein C, S, antithrombin 3, Factor V Leiden, prothrombin genem cardiolipins, anti beta glycoproteins from 08/22/17 all negative/normal CEA and CA 125 normal on 08/22/17 AFP 15.1 on 08/22/17 --> 8.4 (11/05/2017 )-->6.9 (02/12/2018). MRI of the liver (11/09/2017) -no evidence of cirrhosis, no focal liver lesion, no hepatic steatosis noted. Left lower extremity Doppler evaluation (12/24/2017) - No evidence of acute DVT. - Moderate sized chronic thrombus in the left femoral vein noted. Bilateral breast mammogram (April 2020) --> negative. Bilateral breast mammogram and left breast sonogram --> no suspicious findings noted (03/16/2022) She was at [facility] ER on 08/30/2023: Blood workup done on that day showed normal blood counts, BUN/Creat: 12/0.7, Calcium level 11.4, magnesium level of 1.6, normal liver function test, CT scan of chest, abdomen pelvis done on 08/30/2023: -no evidence of pulmonary embolism, small bilateral pleural effusion, tiny lung nodules ( 4 mm and 6 mm),. Nonspecific left axilla lymphadenopathy measuring about 1.1 cm. -extensive peritoneal carcinomatosis with soft tissue masses within the central mesentery and retroperitoneum. -retroperitoneal soft tissue mass causing obstruction of the proximal ureters causing [id number] bilateral hydronephrosis -abnormal paravertebral soft tissue mass within the lower thoracic region -small ascites -left common femoral/superficial femoral vein thrombosis noted -1.8 cm lytic lesion in the L4 vertebral body. Bilateral lower extremity Doppler evaluation on 08/30/2023: -left lower extremity DVT involving the left common femoral, superficial femoral and popliteal veins. PET CT ( 09/05/2023) IMPRESSION: Significant Abnormal Result: Progression to stage IV breast cancer: 1. New 2.2 (CC) x 1.8 (AP) x 2.4 (TV) cm low metabolic intensity spiculated mass in the axillary tail of the left breast invading the chest wall invasion. 2. New metabolically-active lymphangitic and peritoneal carcinomatosis. Small malignant pleural effusions and abdominopelvic ascites 3. New metabolically-active hematogenous metastases to the liver. 4. New bilateral axillary lymph node metastases. New metabolically-active retroperitoneal lymphadenopathy constricting the ureters, resulting in bilateral hydroureteronephrosis. 5. New metabolically-active osseous metastases to several lumbar segments. Scalloping of the anterior L4 vertebral body. Attention to increased risk of pathologic fracture. IMPRESSION/PLAN: Ms. Raymundo is a 77 year old female who has been diagnosed with left breast carcinoma, S/P lumpectomy and sentinel node biopsy, 2.5 cm grade 2 invasive lobular carcinoma, 2.5 cm high-grade DCIS present, overall negative margin, 1 sentinel lymph node and another non sentinel palpable lymph suresh positive for metastatic disease (both lymph nodes showed macrometastatic disease), no evidence of distant metastatic disease noted anywhere else by PET/CT at diagnosis. She is pathologically staged as T2 N1a M0 and her tumor is ER strongly positive in 100% of malignant cells, TX negative, Her2/Vanita negative. She received 4 cycles of chemotherapy with Adriamycin and cytoxan and 12 cycles of weekly Taxol, during last 5 cycles the dose of Taxol cut down to 60 mg/m2 due to neuropathy symptoms. She then completed adjuvant RT in January 2016. Now she is on anastrozole since April,- discontinued August 2017 with LLE DVT. She had a CT scan of the chest done in January, showed stable bilateral lung nodules for the last 2 years. Patient was hospitalized in early August 2017 for LLE DVT, no PE. No metastatic disease on CTA chest or CT abd/pelvis. Her hypercoagulable work up was negative. She was started on Lovenox and now on Eliquis without bleeding complication. Has a LLE postphlebitic clinical picture, mild. Interestingly, patient had CEA, CA 125 and AFP drawn at hospital during DVT episode and AFP came back elevated at 15. Subsequent blood workup shows gradual drop in the AFP level, otherwise no focal liver lesion noted in the liver MRI done in October 2017. She took Eliquis for about 6 months and then It was discontinued. She continued Anastrozole. Recently on 08/30/2023, she was diagnosed with new left lower extremity DVT, at the same time found to have peritoneal carcinomatosis, retroperitoneal soft tissue masses causing some mild hydronephrosis, L4 vertebral body lesion which is suspicious for metastatic disease. She also had hypercalcemia,hypomagnesemia, received IV magnesium and IV Zometa x1 dose. I reviewed with her and her sister regarding the PET-CT scan findings, She has metastatic disease involving the peritoneum, bone. Retroperitoneal region, Would like to discontinue Anastrozole Discussed with the regarding second-line hormonal treatment with combination of Abemaciclib and Faslodex, reviewed with regarding treatment schedule side effect profile she is in agreement for that Because of bone metastatic, would like to start Xgeva every 4 weekly and she is in agreement for that No dental problem. She says she could not take vitamin-D Calcium supplementation, she is on dietarysupplement for that Planning for biopsy of the left axillary breast till mass. Once we start treatment will see her in about 4 to 6 weeks timeline. We talked about stage IV disease, overall treatment goal which would be palliative and not curative Dr. Morales Rodriguez Hem/Onc (This note was completed using the dictation program Fluency Direct. As such, there may be misspellings word substitutions, or other variations that should not change the essence of the clinical content of this encounter note. If there is need for further clarification, please direct questions to the provider listed above.) documented in this encounter Nursing Notes * Eri Valdes MED ASSIST - 09/13/2023 9:54 AM EDT Patient identifed by name and birthdate Do you have any concerns about pain management for today's visit? Yes. Patient instructed to discuss pain concerns with provider during the visit today Living Will or Advance Directive for Health Care as noted on the problem list. [facility] is a way you can talk to your provider on line through e-mail. Would you like to sign up? I can activate it for you? ALREADY ACTIVE Filed Vitals: 09/13/23 0954 BP: 162/83 Pulse: 86 Resp: 17 Temp: 36.1 C (96.9 F) TempSrc: Tympanic SpO2: 93% Weight: 66.1 kg (145 lb 12.8 oz) Patient was instructed to not get up on the exam table/exam chair until directed and assisted by their provider; patient is to remain seated in the chair/ wheelchair/ exam table/ exam chair for fall prevention and safety reasons. Patient is aware to have assistance to step down off exam table/exam chair with personnel. Patient voiced full comprehension of instructions. documented in this encounter Plan of Treatment Upcoming Encounters Date Type Department Care Team (Late st Contact Info) Description 09/17/2023 1:15 PM EDT Pharmacy Pharmacy Hematology Oncology [address] [address] [facility] [place] Hem/Onc [address] [place] [address] 09/19/2023 1:30 PM EDT Pharmacy Pharmacy Hematology Oncology [place] [address] [place] [address] [facility] [place] Hem/Onc [address] [place] [address] 01/07/2024 2:45 PM EDT Office Visit Hematology/Oncology [facility] [place] [address] [place] [phone] Morales Rodriguez MD [address] [place] [address] 03/16/2024 1:00 PM EST Office Visit Family Medicine [address] [place] [phone] Mahogany Valentin MD [address] [place] [address] [place] [address] 03/20/2024 1:30 PM EST Imaging Radiology [address] [place] [address] 04/13/2024 1:00 PM EST Nurse Only Ancillary [address] [place] [address] [place], Nurse Annual [address] [place] [address] Pending Results Name Type Priority Associated Diagnoses Date /Time HEPATITIS B SURFACE ANTIGEN Lab Routine 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 breast in female, estrogen receptor positive (HCC) Metastasis to bone (HCC) Peritoneal carcinomatosis (HCC) Metastasis to liver (HCC) 09/13/2023 10:32 AM EDT HEPATITIS B SURFACE ANTIBODY Lab Routine 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 breast in female, estrogen receptor positive (HCC) Metastasis to bone (HCC) Peritoneal carcinomatosis (HCC) Metastasis to liver (HCC) 09/13/2023 10:32 AM EDT HEPATITIS B CORE ANTIBODIES IGG AND IGM Lab Routine 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 breast in female, estrogen receptor positive (HCC) Metastasis to bone (HCC) Peritoneal carcinomatosis (HCC) Metastasis to liver (HCC) 09/13/2023 10:32 AM EDT Scheduled Orders Name Type Priority Associated Diagnoses Orde r Schedule US GUIDED BREAST BIOPSY LEFT Medical Imaging Routine 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 breast in female, estrogen receptor positive (HCC) Metastasis to bone (HCC) Peritoneal carcinomatosis (HCC) Metastasis to liver (HCC) Expected: 09/20/2023, Expires: 10/13/2024 Health Maintenance Due Date Last Done Comments [...] this encounter Medical Devices Implanted Type Area Wooden Tank Erector Device Identifier Shelf Expiration Date Model / Serial / Lot Port Power Mri W/8fr Cath - [id number] Implanted:Qty : 1 on 05/25/2015 by Florence Mayfield MD at OR [facility] Left: Subclavian CR BARD : PERIPHERAL VASCULAR 08/17/2016 [id number] / / [id number] documented as of this encounter Procedures Procedure Name Priority Date/Time Associated Diagnosis Comments DIFFERENTIAL, AUTOMATED STAT 09/13/2023 10:32 AM EDT 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 breast in female, estrogen receptor positive (HCC) Metastasis to bone (HCC) Peritoneal carcinomatosis (HCC) Metastasis to liver (HCC) COMPREHENSIVE METABOLIC PANEL STAT 09/13/2023 10:32 AM EDT 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 breast in female, estrogen receptor positive (HCC) Metastasis to bone (HCC) Peritoneal carcinomatosis (HCC) Metastasis to liver (HCC) CBC STAT 09/13/2023 10:32 AM EDT 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 breast in female, estrogen receptor positive (HCC) Metastasis to bone (HCC) Peritoneal carcinomatosis (HCC) Metastasis to liver (HCC) CBC STAT 09/13/2023 10:32 AM EDT 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 breast in female, estrogen receptor positive (HCC) Metastasis to bone (HCC) Peritoneal carcinomatosis (HCC) Metastasis to liver (HCC) documented in this encounter Results * (ABNORMAL) DIFFERENTIAL, AUTOMATED (09/13/2023 10:32 AM EDT) WBC 7.10 4.00 - 10.80 K/uL 09/13/2023 10:53 AM EDT [facility] Neutrophils % 64.5 40.0 - 75.0 % 09/13/2023 10:53 AM EDT [facility] Lymphocytes % 23.2 18.0 - 42.0 % 09/13/2023 10:53 AM EDT [facility]-02 Monocytes % 11.1(H) 1.0 - 11.0 % 09/13/2023 10:53 AM EDT [facility]-02 Eosinophils % 1.1 0.0 - 6.0 % 09/13/2023 10:53 AM EDT [facility]-02 Basophils % 0.1 0.0 - 2.0 % 09/13/2023 10:53 AM EDT [facility] 56-02 Absolute Neutrophils 4.57 1.80 - 7.70 K/uL 09/13/2023 10:53 AM EDT [facility] 56- Absolute Lymphocytes 1.65 1.00 - 4.80 K/ul 09/13/2023 10:53 AM EDT [facility] 56- Absolute Monocytes 0.79 0.00 - 1.10 K/uL 09/13/2023 10:53 AM EDT [facility] 56- Absolute Eosinophils 0.08 0.00 - 0.70 K/uL 09/13/2023 10:53 AM EDT [facility] 56-02 Absolute Basophils 0.01 0.00 - 0.20 K/uL 09/13/2023 10:53 AM EDT [facility] 56- Blood Venous blood specimen / Unknown Venipuncture / Unknown 09/13/2023 10:32 AM EDT 09/13/2023 10:49 AM EDT Morales Rodriguez MD LAB BLOOD ORDERABLES [facility] 56- [address] [place] [address] * CBC (09/13/2023 10:32 AM EDT) WBC 7.10 4.00 - 10.80 K/uL 09/13/2023 10:53 AM EDT [facility] 56- RBC 4.04 3.85 - 5.15 M/uL 09/13/2023 10:53 AM EDT [facility] 56- HGB 12.2 12.0 - 15.3 g/dL 09/13/2023 10:53 AM EDT [facility] 56- HCT 36.9 36.0 - 45.2 % 09/13/2023 10:53 AM EDT [facility] 56- MCV 91.3 81.5 - 97.5 fL 09/13/2023 10:53 AM EDT [facility] 56- MCH 30.2 27.0 - 34.0 pg 09/13/2023 10:53 AM EDT [facility] 56 MCHC 33.1 32.0 - 36.0 g/dL 09/13/2023 10:53 AM EDT [facility] 56 RDW 14.2 11.5 - 15.5 % 09/13/2023 10:53 AM EDT [facility] 56 PLT 278 140 - 400 K/uL 09/13/2023 10:53 AM EDT [facility] 56 MPV 9.7 6.6 - 11.1 fL 09/13/2023 10:53 AM EDT [facility] 56 Blood Venous blood specimen / Unknown Venipuncture / Unknown 09/13/2023 10:32 AM EDT 09/13/2023 10:49 AM EDT Morales Rodriguez MD LAB BLOOD ORDERABLES Performing Organization Address City/[facility]/ZIP Co de Phone Number [facility] [address] [place] [address] * (ABNORMAL) PHOSPHORUS (09/13/2023 10:32 AM EDT) Phosphorus 2.0(L) 2.5 - 4.8 mg/dL 09/13/2023 11:24 AM EDT [facility] Blood Venous blood specimen / Unknown Venipuncture / Unknown 09/13/2023 10:32 AM EDT 09/13/2023 10:49 AM EDT Morales Rodriguez MD LAB BLOOD ORDERABLES [facility] 56 [address] [place] [address] * (ABNORMAL) COMPREHENSIVE METABOLIC PANEL (09/13/2023 10:32 AM EDT) BUN 19 6 - 20 mg/dL 09/13/2023 11:24 AM EDT [facility] 56 Creatinine 1.1(H) 0.5 - 1.0 mg/dL 09/13/2023 11:24 AM EDT [facility] Estimated Glomerular Filtration Rate 53(L) >=60 mL/min 09/13/2023 11:24 AM [facility] 56 Comment:eGFR is calculated b ased on the CKD-EPI 2020 equation Sodium 138 135 - 146 mmol/L 09/13/2023 11:24 AM EDT [address] Potassium 3.7 3.5 - 5.1 mmol/L 09/13/2023 11:24 AM T [address] Chloride 103 98 - 107 mmol/L 09/13/2023 11:24 AM EDT [address] CO2 22 22 - 32 mmol/L 09/13/2023 11:24 AM T [address] Anion Gap 13 7 - 15 mmol/L 09/13/2023 11:24 AM T [address] Glucose 104 70 - 120 mg/dL 09/13/2023 11:[address] Albumin 4.1 3.8 - 5.0 g/dL 09/13/2023 11:24 AM T [address] AST 41(H) 10 - 35 U/L 09/13/2023 11:24 AM T [address] Alkaline Phosphatase 136(H) 35 - 130 U/L 09/13/2023 11:[address] Bilirubin, Total 0.4 <=1.2 mg/dL 09/13/2023 11:[address] Calcium 9.4 8.4 - 10.2 mg/dL 09/13/2023 11:24 AM T [address] Protein 7.4 6.0 - 8.3 g/dL 09/13/2023 11:24 AM T [address] ALT 11 10 - 35 U/L 09/13/2023 11:24 AM [facility] 56 Blood Venous blood specimen / Unknown Venipuncture / Unknown 09/13/2023 10:32 AM EDT 09/13/2023 10:49 AM EDT Morales Rodriguez MD LAB BLOOD ORDERABLES [place] [phone] [place] [address] documented in this encounter Visit Diagnoses Diagnosis 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 breast in female, estrogen receptor positive (HCC)- Primary Metastasis to bone (HCC) Secondary malignant neoplasm of bone and bone marrow Peritoneal carcinomatosis (HCC) Malignant neoplasm of peritoneum, unspecified Metastasis to liver (HCC) Secondary malignant neoplasm of liver documented in this encounter Care Teams Compensation And Benefits Advisor Relationship Specialty Start Date End Date Mahogany Valentin MD [address] [place] [address] [place] [address] PCP - General Family Medicine 01/23/17 documented as of this encounter
--- OUTSIDE RECORDS SUMMARY | 2023-12-20 21:11 | External Medical Summary | Summary of Care ---
Demographics Address [address] [place] [address] Home Phone Email Address Preferred Language Divehi Marital Status Unknown Jew Affiliation Unknown Race White Ethnic Group Not or Lati no Author Name Unknown Organization [facility] Address [address] [facility] [address] Phone [phone] Care Team Providers Care Tablet Making Machine Operator Name Role Phone Mahogany Valentin MD Primary Care Provide r Reason for Visit * Reason Onset Date Comments Precert Future 09/13/2023 Faslodex, verzen io Encounter Details Date Type Department Care Team (Late st Contact Info) Description 09/13/2023 Telephone Hematology/Oncology Treatment, [place] [address] [place] [address] Morales Rodriguez MD [address] [place] [address] Precert Future (Faslodex, verzenio) Allergies No known [...] mRNA, LNP-s, No Pre serve, 2-Dose Series ([employer]) 01/24/2021,06/29/2020,06/08/2020 COVID-19, LNP-s, No Preserve , Adam-sucrose, Ages 12+ ([employer]) 09/05/2021 COVID-19, MRNA-LNP, 23-24, P F, 30 MCG/0.3 mL, 12 YRS AND ABOVE, IM ([facility]) 01/16/2023 Covid-19, Mrna, Lnp-s, Pf, B ivalent, 30 Mcg, IM, 12 yrs and above ([employer]) 01/09/2022 PPD 02/25/2003 Pneumococcal Conjugate Vacc, 13 [...] 09/18/2023 10:58 AM EDT Referral entered for [facility], can be filled at [facility]. Rx was not sent- sent to provider in other encounter. * Telephone Encounter - Gauri Emmanuel OSA - 09/18/2023 10:57 AM EDT Pt is scheduled but is asking about Apixaban 5 MG Oral Tablet (Eliquis) [[id number]] (Order [id number]) She was asking if this got sent to mail order with [employer] * Telephone Encounter - Gauri Emmanuel OSA [...] EDT Order received for verzenio, faslodex, xgeva. [place] plan built. Waiting for auth. Consent signed 09/13/23. Order forwarded to [facility]. Patient is going for hep B [...] 1:30 PM EDT Pharmacy Pharmacy Hematology Oncology [address] [place] [address] [facility] [place], [facility] Hem/Onc [address] [place] [address] 09/24/2023 11:00 AM EDT Nurse Only Hematology/Oncology [facility] [place] [address] [place] [phone] [place], Nurse Hem Onc Scenery 200 [facility] [place] [address] 09/24/2023 12:00 PM EDT Immunization/Inject ion Hematology/Oncology Treatment, [place] [facility] [place] [phone] Nurse, Med 4 200 [facility] [place] [address] 01/07/2024 2:45 PM EDT Office Visit Hematology/Oncology [facility] [place] [address] [place] [phone] Morales Rodriguez MD [address] [place] [address] 03/16/2024 1:00 PM EST Office Visit Family Medicine [address] [phone] Mahogany Valentin MD [address] [place] [address] [place] [address] 03/20/2024 1:30 PM EST Imaging Radiology [address] [place] [address] 04/13/2024 1:00 PM EST Nurse Only Ancillary [address] [place] [address] Nurse Roz Annual [address] [place] [address] Health Maintenance Due Date Last Done Comments [...] this encounter Medical Devices Implanted Type Area Sand Operator Device Identifier Shelf Expiration Date Model / Serial / Lot Port Power Mri W/8fr Cath - [id number] Implanted:Qty : 1 on 05/25/2015 by Florence Mayfield MD at OR [facility] Left: Subclavian CR BARD : PERIPHERAL VASCULAR 08/17/2016 [id number] / / [id number] documented as of this encounter Care Teams Tablet Making Machine Operator Relationship Specialty Start Date End Date Mahogany Valentin MD [address] [place] [address] [place] [address] PCP - General Family Medicine 01/23/17 documented as of this encounter
--- OUTSIDE RECORDS SUMMARY | 2023-12-20 21:11 | External Medical Summary | Summary of Care ---
Demographics Address [address] [place] [address] Home Phone Email Address Preferred Language Pashto Marital Status Unknown Yazidi Affiliation Unknown Race White Ethnic Group Not or Lati no Author Name Unknown Organization [facility] Address [address] [facility] [address] Phone [phone] Care Team Providers Care Horticultural Services Supervisor Name Role Phone Mahogany Valentin MD Primary Care Provide r Reason for Visit * Reason Onset Date Comments Pre Cert/Prior Auth 09/13/2023 Encounter Details Date Type Department Care Team (Late st Contact Info) Description 09/13/2023 Telephone Hematology/Oncology Treatment, [place] [address] [place] [address] Morales Rodriguez MD 200 [place] [address] Pre Cert/Prior Auth Allergies No known active [...] mRNA, LNP-s, No Pre serve, 2-Dose Series ([employer]) 01/24/2021,06/29/2020,06/08/2020 COVID-19, LNP-s, No Preserve , Adam-sucrose, Ages 12+ (Pfizer) 09/05/2021 COVID-19, MRNA-LNP, 23-24, P F, 30 MCG/0.3 mL, 12 YRS AND ABOVE, IM (P[employer]ER-Comirnaty) 01/16/2023 Covid-19, Mrna, Lnp-s, Pf, B ivalent, 30 Mcg, IM, 12 yrs and above (LoLo) 01/09/2022 PPD 02/25/2003 Pneumococcal Conjugate Vacc, 13 [...] Called and verifed prior authorization needed with [facility]. Concurrent Therapy: yes * Telephone Encounter - Nilsa Baker LPN - 09/17/2023 9:06 AM EDT Per My [facility] message from patient, called and spoke with the Pharmacist at [facility]. He states a prior authorization is required [...] 1:30 PM EDT Pharmacy Pharmacy Hematology Oncology [address] [address] [facility] [place], [facility] Hem/Onc [address] [place] [address] 01/07/2024 2:45 PM EDT Office Visit Hematology/Oncology [address] [place] [phone] Morales Rodriguez MD 200 [facility] [place] [address] 03/16/2024 1:00 PM EST Office Visit Family Medicine [address] [place] [phone] Mahogany Valentin MD [address] [place] [address] [place] [address] 03/20/2024 1:30 PM EST Imaging Radiology [address] [place] [address] 04/13/2024 1:00 PM EST Nurse Only Ancillary [address] [place] [address] [place], Nurse Annual Wellness [address] [place] [address] [place] [address] Health Maintenance Due Date Last Done Comments [...] this encounter Medical Devices Implanted Type Area Airset Molder Device Identifier Shelf Expiration Date Model / Serial / Lot Port Power Mri W/8fr Cath - [id number] Implanted:Qty : 1 on 05/25/2015 by Florence Mayfield MD at OR [facility] Left: Subclavian CR BARD : PERIPHERAL VASCULAR 08/17/2016 [id number] / / [id number] documented as of this encounter Care Teams Horticultural Services Supervisor Relationship Specialty Start Date End Date Mahogany Valentin MD [address] [place] [address] [place] [address] PCP - General Family Medicine 01/23/17 documented as of this encounter
--- OUTSIDE RECORDS SUMMARY | 2023-12-20 21:11 | External Medical Summary | Summary of Care ---
Demographics Address [address] [place] [address] Home Phone Email Address Preferred Language Tajik Marital Status Unknown Yarsanism Affiliation Unknown Race White Ethnic Group Not or Lati no Author Name Unknown Organization [facility] Address [address] [facility] [address] Phone [phone] Care Team Providers Care In Home Baby Sitter Name Role Phone Mahogany Valentin MD Primary Care Provide r Reason for Visit * Reason Onset Date Comments Test Results 09/13/2023 Encounter Details Date Type Department Care Team (Late st Contact Info) Description 09/13/2023 Telephone Hematology/Oncology Treatment, [place] [address] [place] [address] Morales Rodriguez MD 200 [place] [address] Test Results Allergies No known active allergiesdocumented [...] mRNA, LNP-s, No Pre serve, 2-Dose Series ([employer] 01/24/2021,06/29/2020,06/08/2020 COVID-19, LNP-s, No Preserve , Adam-sucrose, Ages 12+ ([employer] 09/05/2021 COVID-19, MRNA-LNP, 23-24, P F, 30 MCG/0.3 mL, 12 YRS AND ABOVE, IM ([facility]) 01/16/2023 Covid-19, Mrna, Lnp-s, Pf, B ivalent, 30 Mcg, IM, 12 yrs and above ([employer] 01/09/2022 Pneumococcal Conjugate Vacc, 13 Valent (Prevnar) [...] 1:15 PM EDT Pharmacy Pharmacy Hematology Oncology [place] [address] [place] [address] [facility], [facility] Hem/Onc [facility] [place] [address] 09/19/2023 1:30 PM EDT Pharmacy Pharmacy Hematology Oncology [facility] [address] [place] [address] [facility], [facility] Hem/Onc [address] [place] [address] 01/07/2024 2:45 PM EDT Office Visit Hematology/Oncology [employer] [address] [place] [phone] Morales Rodriguez MD [address] [facility] [address] 03/16/2024 1:00 PM EST Office Visit Family Medicine [address] [place] [phone] Mahogany Valentin MD [address] [place] [address] [place] [address] 03/20/2024 1:30 PM EST Imaging Radiology [address] [place] [address] 04/13/2024 1:00 PM EST Nurse Only Ancillary [address] [place] [address] [place], Nurse Annual [address] [place] [address] Health Maintenance Due Date Last Done Comments [...] this encounter Medical Devices Implanted Type Area Editor City Device Identifier Shelf Expiration Date Model / Serial / Lot Port Power Mri W/8fr Cath - [id number] Implanted:Qty : 1 on 05/25/2015 by Florence Mayfield MD at OR [facility] Left: Subclavian CR BARD : PERIPHERAL VASCULAR 08/17/2016 [id number] / / [id number] documented as of this encounter Care Teams In Home Baby Sitter Relationship Specialty Start Date End Date Mahogany Valentin MD [address] [place] [address] [place] [address] PCP - General Family Medicine 01/23/17 documented as of this encounter
--- OUTSIDE RECORDS SUMMARY | 2023-12-20 21:11 | External Medical Summary | Summary of Care ---
Demographics Address [address] [place] [address] Home Phone Email Address Preferred Language Tamazight Marital Status Unknown Church Affiliation Unknown Race White Ethnic Group Not or Lati no Author Name Unknown Organization [facility] Address [address] [facility] [address] Phone [phone] Care Team Providers Care Head Sawyer Name Role Phone Mahogany Valentin MD Primary Care Provide r Reason for Visit * Reason Onset Date Comments Pre Cert/Prior Auth 09/13/2023 Encounter Details Date Type Department Care Team (Late st Contact Info) Description 09/13/2023 Telephone Hematology/Oncology Treatment, [place] [address] [place] [address] Morales Rodriguez MD 200 [place] [address] Pre Cert/Prior Auth Allergies No known active [...] mRNA, LNP-s, No Pre serve, 2-Dose Series ([employer]) 01/24/2021,06/29/2020,06/08/2020 COVID-19, LNP-s, No Preserve , Adam-sucrose, Ages 12+ (Pfizer) 09/05/2021 COVID-19, MRNA-LNP, 23-24, P F, 30 MCG/0.3 mL, 12 YRS AND ABOVE, IM (PFIZER-Comirnaty) 01/16/2023 Covid-19, Mrna, Lnp-s, Pf, B ivalent, 30 Mcg, IM, 12 yrs and above ([employer]) 01/09/2022 PPD 02/25/2003 Pneumococcal Conjugate Vacc, [...] called and spoke with the Pharmacist at [facility]. He states a prior authorization is [...] 1:30 PM EDT Pharmacy Pharmacy Hematology Oncology [address] [address] [place], [facility] Hem/Onc [address] [place] [address] 01/07/2024 2:45 PM EDT Office Visit Hematology/Oncology [facility] [place] [address] [place] [phone] Morales Rodriguez MD 200 [facility] [place] [address] 03/16/2024 1:00 PM EST Office Visit Family Medicine [address] [place] [phone] Mahogany Valentin MD [address] [place] [address] [place] [address] 03/20/2024 1:30 PM EST Imaging Radiology [address] [place] [address] 04/13/2024 1:00 PM EST Nurse Only Ancillary [address] [place] [address] [place], Nurse Annual [address] [place] [address] Health Maintenance Due Date Last Done Comments [...] this encounter Medical Devices Implanted Type Area Faith Healer Device Identifier Shelf Expiration Date Model / Serial / Lot Port Power Mri W/8fr Cath - [id number] Implanted:Qty : 1 on 05/25/2015 by Florence Mayfield MD at [facility] Left: Subclavian CR BARD : PERIPHERAL VASCULAR 08/17/2016 [id number] / / [id number] documented as of this encounter Care Teams Head Sawyer Relationship Specialty Start Date End Date Mahogany aVlentin MD [address] [place] [address] [place] [address] PCP - General Family Medicine 01/23/17 documented as of this encounter
--- OUTSIDE RECORDS SUMMARY | 2023-12-20 21:11 | External Medical Summary | Summary of Care ---
Demographics Address [address] [place] [address] Home Phone Email Address Preferred Language Romanian Marital Status Unknown Jehovah'S Witness Affiliation Unknown Race White Ethnic Group Not or Lati no Author Name Unknown Organization [facility] Address [address] [facility] [place] [address] Phone [phone] Care Team Providers Care Taxation Consultant Name Role Phone Mahogany Valentin MD Primary Care Provide r Reason for Visit * Reason Onset Date Comments Medication Refill 09/17/2023 Encounter Details Date Type Department Care Team (Late st Contact Info) Description 09/17/2023 Refill Family Medicine [address] [phone] Mahogany Valentin MD [address] [place] [address] [place] [address] Allergies No known active allergiesdocumented as [...] mRNA, LNP-s, No Pre serve, 2-Dose Series ([employer]) 01/24/2021,06/29/2020,06/08/2020 COVID-19, LNP-s, No Preserve , Adam-sucrose, Ages 12+ ([employer]) 09/05/2021 COVID-19, MRNA-LNP, 23-24, P F, 30 MCG/0.3 mL, 12 YRS AND ABOVE, IM (PFIZER-Comirnaty) 01/16/2023 Covid-19, Mrna, Lnp-s, Pf, B ivalent, 30 Mcg, IM, 12 yrs and above ([employer]) 01/09/2022 Pneumococcal Conjugate Vacc, 13 Valent (Prevnar) [...] 1:30 PM EDT Pharmacy Pharmacy Hematology Oncology [facility] [address] [place] [address] [facility], [facility] Hem/Onc [address] [place] [address] 01/07/2024 2:45 PM EDT Office Visit Hematology/Oncology [facility] [place] [address] [facility] [place] [phone] Morales Rodriguez MD 200 [facility] [place] [address] 03/16/2024 1:00 PM EST Office Visit Family Medicine [address] [place] [address] Mahogany Valentin MD [address] [place] [address] [place] [address] 03/20/2024 1:30 PM EST Imaging Radiology [address] [place] [address] 04/13/2024 1:00 PM EST Nurse Only Ancillary [address] [place] [address] [place], Nurse Annual [address] [place] [address] Health Maintenance Due Date Last Done Comments [...] this encounter Medical Devices Implanted Type Area Mechatronics Technologist Device Identifier Shelf Expiration Date Model / Serial / Lot Port Power Mri W/8fr Cath - [id number] Implanted:Qty : 1 on 05/25/2015 by Florence Mayfield MD at OR [facility] Left: Subclavian CR BARD : PERIPHERAL VASCULAR 08/17/2016 [id number] / / [id number] documented as of this encounter Care Teams Taxation Consultant Relationship Specialty Start Date End Date Mahogany Valentin MD [address] [place] [address] [place] [phone] PCP - General Family Medicine 01/23/17 documented as of this encounter
--- OUTSIDE RECORDS SUMMARY | 2023-12-20 21:11 | External Medical Summary | Summary of Care ---
Demographics Address [address] [address] Home Phone Email Address Preferred Language Icelandic Marital Status Unknown Presybeterian Affiliation Unknown Race White Ethnic Group Not or Lati no Author Name Unknown Organization [facility] Address [address] [facility] [address] Phone [phone] Care Team Providers Care Manager Infusion Name Role Phone Mahogany Valentin MD Primary Care Provide r Reason for Visit * Reason Onset Date Comments Pre Cert/Prior Auth 09/13/2023 Encounter Details Date Type Department Care Team (Late st Contact Info) Description 09/13/2023 Telephone Hematology/Oncology Treatment, [place] [address] [place] [address] Morales Rodriguez MD 200 [place] [address] Pre Cert/Prior Auth Allergies No known active [...] mRNA, LNP-s, No Pre serve, 2-Dose Series ([employer]) 01/24/2021,06/29/2020,06/08/2020 COVID-19, LNP-s, No Preserve , Adam-sucrose, Ages 12+ (Pfizer) 09/05/2021 COVID-19, MRNA-LNP, 23-24, P F, 30 MCG/0.3 mL, 12 YRS AND ABOVE, IM (PFIZER-Comirnaty) 01/16/2023 Covid-19, Mrna, Lnp-s, Pf, B ivalent, 30 Mcg, IM, 12 yrs and above ([employer]) 01/09/2022 PPD 02/25/2003 Pneumococcal Conjugate Vacc, [...] Miscellaneous Notes * Telephone Encounter - Nilsa Bakre LPN - 09/18/2023 10:46 AM EDT ICD-10: C79.51, C78.6, C78.7, E83.39 Start date: 09/13/2023 Drugs: Phos-Nak Oral Packet Multidisciplinary Clinic note: yes Physician: Dr. Morales Rodriguez Comments: Called and verifed prior authorization needed with [facility]. Concurrent Therapy: yes * Telephone Encounter - Nilsa Baker LPN - 09/17/2023 9:06 AM EDT Per My [facility] message from patient, called and spoke with the Pharmacist at [facility]. He states a prior authorization is required for the Phos-Nak packets. The only information he has from the insurance company is to call . Pre-Cert: Please assist with getting the Phos-Nak authorization. Prior Auth Telephone: Thank you!! * Telephone Encounter - Katrina Randhwaa RN - 09/13/2023 3:[address] Rodriguez: "-phosphorus level is 2.0. Would like to start oral phosphatase supplementation." MyG sent. documented in this encounter Plan of Treatment Upcoming Encounters Date Type Department Care Team (Late st Contact Info) Description 09/18/2023 1:30 PM EDT Pharmacy Pharmacy Hematology Oncology [address] [address] [facility], [facility] Hem/Onc [address] [place] [address] 09/24/2023 11:00 AM EDT Nurse Only Hematology/Oncology [address] [place] [phone] [place], Nurse Hem Onc [address] [place] [address] 09/24/2023 12:00 PM EDT Immunization/Inject ion Hematology/Oncology [address], [address] [phone] Nurse, Med [address] [place] [address] [place] [address] 01/07/2024 2:45 PM EDT Office Visit Hematology/Oncology [facility], [address] [place] [address] Morales Rodriguez MD [address] [place] [address] 03/16/2024 1:00 PM EST Office Visit Family Medicine [address] [place] [phone] Mahogany Valentin MD [address] [place] [address] [place] [address] 03/20/2024 1:30 PM EST Imaging Radiology [address] [place] [address] 04/13/2024 1:00 PM EST Nurse Only Ancillary [address] [place] [address] [place], Nurse Annual [address] [place] [address] [place] [address] Health Maintenance Due Date Last Done Comments [...] this encounter Medical Devices Implanted Type Area Learning Strategist Device Identifier Shelf Expiration Date Model / Serial / Lot Port Power Mri W/8fr Cath - [id number] Implanted:Qty : 1 on 05/25/2015 by Florence Mayfield MD at OR [facility] Left: Subclavian CR BARD : PERIPHERAL VASCULAR 08/17/2016 [id number] / / [id number] documented as of this encounter Care Teams Manager Infusion Relationship Specialty Start Date End Date Mahogany Valentin MD [address] [place] [address] [place] [phone] PCP - General Family Medicine 01/23/17 documented as of this encounter
--- OUTSIDE RECORDS SUMMARY | 2023-12-20 21:11 | External Medical Summary | Summary of Care ---
Demographics Address [address] [place] [address] Home Phone Email Address Preferred Language Yi Marital Status Unknown Evangelical Affiliation Unknown Race White Ethnic Group Not or Lati no Author Name Unknown Organization [facility] Address [address] [facility] [address] Phone [phone] Care Team Providers Care Level Glass Vial Filler Name Role Phone Mahogany Valentin MD Primary Care Provide r Reason for Visit * Reason Onset Date Comments Precert Future 09/13/2023 Faslodex, verzen io Encounter Details Date Type Department Care Team (Late st Contact Info) Description 09/13/2023 Telephone Hematology/Oncology Treatment, [place] [address] [place] [address] Morales Rodriguez MD [address] [place] [address] Precert Future (Faslodex, verzenio) Allergies No known [...] mRNA, LNP-s, No Pre serve, 2-Dose Series ([employer]) 01/24/2021,06/29/2020,06/08/2020 COVID-19, LNP-s, No Preserve , Adam-sucrose, Ages 12+ ([employer]) 09/05/2021 COVID-19, MRNA-LNP, 23-24, P F, 30 MCG/0.3 mL, 12 YRS AND ABOVE, IM ([facility]) 01/16/2023 Covid-19, Mrna, Lnp-s, Pf, B ivalent, 30 Mcg, IM, 12 yrs and above ([employer]) 01/09/2022 PPD 02/25/2003 Pneumococcal Conjugate Vacc, 13 [...] nurse education visit with 15 min apt "Faslnyasia"(Dr. Rodriguez) afterward. * Telephone Encounter - Katrina Randhawa RN - 09/13/2023 2:40 PM EDT Referral entered for faslodex. * Telephone Encounter - Katrina Randhawa RN - 09/13/2023 10:38 AM EDT Order received for verzenio, faslodex, xgeva. [place] plan built. Waiting for auth. Consent signed 09/13/23. Order forwarded to [facility]. Patient is going for hep [...] 1:15 PM EDT Pharmacy Pharmacy Hematology Oncology [address] [address] [facility] Hem/Onc [address] [place] [address] 09/19/2023 1:30 PM EDT Pharmacy Pharmacy Hematology Oncology [address] [address] [facility] Hem/Onc [address] [place] [address] 01/07/2024 2:45 PM EDT Office Visit Hematology/Oncology Pia Zhang [place] 200 [facility] [place] [phone] Morales Rodriguez MD 200 [facility] [address] [place] [address] 03/16/2024 1:00 PM EST Office Visit [address] [phone] Mahogany Valentin MD [address] [place] [address] [place] [address] 03/20/2024 1:30 PM EST Imaging Radiology [address] [place] [address] 04/13/2024 1:00 PM EST Nurse Only Ancillary [address] [place] [address] [place], Nurse Annual Wellness [address] [place] [address] [place] [address] Health Maintenance Due Date Last Done Comments [...] this encounter Medical Devices Implanted Type Area Multimedia Author Device Identifier Shelf Expiration Date Model / Serial / Lot Port Power Mri W/8fr Cath - [id number] Implanted:Qty : 1 on 05/25/2015 by Florence Mayfield MD at OR [facility] Left: Subclavian CR BARD : PERIPHERAL VASCULAR 08/17/2016 [id number] / / [id number] documented as of this encounter Care Teams Level Glass Vial Filler Relationship Specialty Start Date End Date Mahogany Valentin MD [address] [place] [address] [place] [phone] PCP - General Family Medicine 01/23/17 documented as of this encounter
--- OUTSIDE RECORDS SUMMARY | 2023-12-20 21:11 | External Medical Summary | Summary of Care ---
Demographics Address [address] [place] [address] Home Phone Email Address Preferred Language Hebrew Marital Status Unknown Zoroastrian Affiliation Unknown Race White Ethnic Group Not or Lati no Author Name Unknown Organization [facility] Address [address] [facility] [place] [address] Phone [phone] Care Team Providers Care Needle Loom Setter Name Role Phone Mahogany Valentin MD Primary Care Provide r Reason for Visit * Reason Onset Date Comments Precert Future 09/13/2023 Faslodex, verzen io Encounter Details Date Type Department Care Team (Late st Contact Info) Description 09/13/2023 Telephone Hematology/Oncology Treatment, [place] [address] [place] [address] Morales Rodriguez MD [address] [place] [address] Precert Future (Faslodex, verzenio) Allergies No known [...] mRNA, LNP-s, No Pre serve, 2-Dose Series (Deltasight) 01/24/2021,06/29/2020,06/08/2020 COVID-19, LNP-s, No Preserve , Adam-sucrose, Ages 12+ (Deltasight) 09/05/2021 COVID-19, MRNA-LNP, 23-24, P F, 30 MCG/0.3 mL, 12 YRS AND ABOVE, IM ([facility]) 01/16/2023 Covid-19, Mrna, Lnp-s, Pf, B ivalent, 30 Mcg, IM, 12 yrs and above (Deltasight) 01/09/2022 PPD 02/25/2003 Pneumococcal Conjugate Vacc, 13 [...] EDT Order received for verzenio, faslodex, xgeva. [place] plan built. Waiting for auth. Consent signed 09/13/23. Order forwarded to [facility]. Patient is going for hep [...] 1:30 PM EDT Pharmacy Pharmacy Hematology Oncology [facility] [address] [place] [address] [facility] Hem/Onc [address] [place] [address] 01/07/2024 2:45 PM EDT Office Visit Hematology/Oncology [facility] [employer] [facility] [place] [phone] Morales Rodriguez MD [address] [place] [address] 03/16/2024 1:00 PM EST Office Visit [address] [place] [address] Mahogany Valentin MD [address] [place] [address] [place] [address] 03/20/2024 1:30 PM EST Imaging Radiology [address] [place] [address] 04/13/2024 1:00 PM EST Nurse Only Ancillary [address] [place] [address] [place], Nurse [address] [place] [address] Health Maintenance Due Date Last Done Comments [...] encounter Medical Devices Implanted Type Area Supervisor Lead Burning Device Identifier Shelf Expiration Date Model / Serial / Lot Port Power Mri W/8fr Cath - [id number] Implanted:Qty : 1 on 05/25/2015 by Florence Mayfield MD at OR [facility] Left: Subclavian CR BARD : PERIPHERAL VASCULAR 08/17/2016 [id number] / / [id number] documented as of this encounter Care Teams Needle Loom Setter Relationship Specialty Start Date End Date Mahogany Valentin MD [address] [place] [address] [place] [phone] PCP - General Family Medicine 01/23/17 documented as of this encounter
--- OUTSIDE RECORDS SUMMARY | 2023-12-20 21:11 | External Medical Summary | Summary of Care ---
Demographics Address [address] [place] [address] Home Phone Email Address Preferred Language Amharic Marital Status Unknown Taoism Affiliation Unknown Race White Ethnic Group Not or Lati no Author Name Unknown Organization [facility] Address [address] [facility] [address] Phone [phone] Care Team Providers Care Drop Hammer Mechanic Name Role Phone Mahogany Valentin MD Primary Care Provide r Reason for Visit * Reason Onset Date Comments Precert Future 09/13/2023 Faslodex, verzen io Encounter Details Date Type Department Care Team (Late st Contact Info) Description 09/13/2023 Telephone Hematology/Oncology Treatment, [place] [address] [place] [address] Morales Rodriguez MD [address] [place] [address] Precert Future (Faslodex, verzenio) Allergies No known [...] mRNA, LNP-s, No Pre serve, 2-Dose Series ([employer]) 01/24/2021,06/29/2020,06/08/2020 COVID-19, LNP-s, No Preserve , Adam-sucrose, Ages 12+ (Peer[employer]) 09/05/2021 COVID-19, MRNA-LNP, 23-24, P F, 30 MCG/0.3 mL, 12 YRS AND ABOVE, IM ([facility]) 01/16/2023 Covid-19, Mrna, Lnp-s, Pf, B ivalent, 30 Mcg, IM, 12 yrs and above (Peer[employer]) 01/09/2022 PPD 02/25/2003 Pneumococcal Conjugate Vacc, 13 [...] about Apixaban 5 MG Oral Tablet (Eliquis) [[id number]] (Order [id number]) She was asking if this got sent to mail order with [employer] * Telephone Encounter - Gauri Emmanuel OSA [...] EDT Order received for verzenio, faslodex, xgeva. [place] plan built. Waiting for auth. Consent signed 09/13/23. [facility]. Patient is going for hep B labs [...] 1:30 PM EDT Pharmacy Pharmacy Hematology Oncology [facility] [place] [address] [facility] [place] [address] [facility] Hem[facility]Onc [address] [place] [facility] [place] [address] 09/24/2023 11:00 AM EDT Nurse Only Hematology/Oncology [facility] 200 [facility] [place] [phone] Nurse Leatha Hem Onc [facility] 200 [facility] [place] [address] 09/24/2023 12:00 PM EDT Immunization/Inject ion Hematology/Oncology Treatment, [place] 200 [facility] [place] [phone] Nurse, Med 200 [facility] [place] [address] 01/07/2024 2:45 PM EDT Office Visit Hematology/Oncology [facility] [place] 200 [facility] [place] [phone] Morales Rodriguez MD 200 [facility] [place] [address] 03/16/2024 1:00 PM EST Office Visit Family Medicine [address] [place] [phone] Mahogany Valentin MD [address] [place] [address] [place] [address] 03/20/2024 1:30 PM EST Imaging Radiology [address] [place] [address] 04/13/2024 1:00 PM EST Nurse Only Ancillary [address] [place] [address] Roz Nurse Annual [address] [place] [address] Health Maintenance Due Date Last Done Comments [...] this encounter Medical Devices Implanted Type Area Anesthesiologist Assistant Certified Device Identifier Shelf Expiration Date Model / Serial / Lot Port Power Mri W/8fr Cath - [id number] Implanted:Qty : 1 on 05/25/2015 by Florence Mayfield MD at [facility] Left: Subclavian CR BARD : PERIPHERAL VASCULAR 08/17/2016 [id number] / / [id number] documented as of this encounter Care Teams Drop Hammer Mechanic Relationship Specialty Start Date End Date Mahogany Valentin MD [address] [place] [address] [place] [phone] PCP - General Family Medicine 01/23/17 documented as of this encounter
--- OUTSIDE RECORDS SUMMARY | 2023-12-20 21:11 | External Medical Summary | Summary of Care ---
Author Name Unknown Organization [facility] Address [address] [place] [address] Phone [phone] Care Team Providers Care Circulation Supervisor Name Role Phone Mahogany Valentin MD Primary Care Provide r Reason for Visit * Reason Comments Medication Management Encounter Details Date Type Department Care Team (Late st Contact Info) Description 09/17/2023 1:15 PM EDT Pharmacy Pharmacy Hematology [facility]cology [facility] [address] [place] [address] [facility] Hem/Onc [address] [place] [address] 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 [...] mRNA, LNP-s, No Pre serve, 2-Dose Series ([employer]) 01/24/2021,06/29/2020,06/08/2020 COVID-19, LNP-s, No Preserve , Adam-sucrose, Ages 12+ ([employer]) 09/05/2021 COVID-19, MRNA-LNP, 23-24, P F, 30 MCG/0.3 mL, 12 YRS AND ABOVE, IM ([employer]Com[employer]) 01/16/2023 Covid-19, Mrna, Lnp-s, Pf, B ivalent, 30 Mcg, IM, 12 yrs and above ([employer]) 01/09/2022 Pneumococcal Conjugate Vacc, 13 Valent (Prevnar) [...] as of this encounter Progress Notes * pOal Jeter CPhT - 09/17/2023 12:34 PM EDT NEW REFERRAL TO ORAL CHEMO CLINIC/MEDICATION RECONCILIATION NOTE Kianna Raymundo [phone] Patient Phone Numbers Communication: Spoke to: Patient OCC flyer sent via [employer] Treatment: Medication: Abemaciclib (Verzenio) Indication/Staging/Diagnosis Code: ER+/OH-/HER2- breast cancer / Stage IIB / C50.412 Dose: 150mg BID Administration: +/- food Start Date: TBD Primary Instructor Weaving/Oncologist: Dr. Otilia Rodriguez Provider has consented patient: Yes Patient was introduced to Oral Chemotherapy Clinic: OCC is a free service for patients receiving oral chemo therapy. We are Pharmacists & Pharmacy Technicians, who are a part of hematology & oncology care across the [facility] system offering telephone based appointments from the comfort of your own home. Pharmacists are available Saturday-Saturday from 8am - 4:30pm. After 4:30pm, non- urgent messages can be left on the pharmacist voicemail, and urgent calls/questions/concerns should be directed to their oncologist office directly (number provided). In case of an emergency, patient is awareto call 911 or travel to nearest emergency department. Communicated to patient: Pharmacists will provide education about your medication, manage oral chemotherapy side effects & review labs. All information will be shared & available to your oncologist. Explained to patient: once they decide on a treatment with their Oncologist, a Pharmacist will review the treatment plan to ensure correct dosing, review labs & medications to prevent any interactions. Medication authorization is submitted to your insurance. Once approved, your Rx will be sent to the Pharmacy determined by your insurance plan. Specialty Pharmacy will contact you to arrange delivery & discuss co-payment and any assistance options, if required. A Pharmacist will contact you to provide medication education, follow up periodically to review lab results & to assess/manage side effects. Patient was reassured the process to obtain medication can take several days-weeks. Patient was informed that hepatitis B screening must be completed prior to initiation of treatment.- Completed 09/12 Patient has given verbal consent that staff from the Oral Chemotherapy Clinic can speak to Patient and sister Clau regarding their treatment Patient has given verbal consent that staff from the Oral Chemotherapy Clinic can leave a voicemailwith treatment-related information: Yes This information can be left on Performed medication reconciliation with patient; pharmacist will be in touch if there are any druginteractions with oral chemo. - Completed Patient voiced understanding on all accounts. She had no questions or concerns today. Patient aware she needs to return call to Dr. Rodriguez's office to schedule nurses education She has not been able to start Phos-Nak due to insurance issues. Aware pre-cert team to be assisting with approval. She is also aware to stop Arimidex Opal Jeter Coat Check Attendant III Hematology Oncology Oral Chemotherapy Clinic Medication Therapy Disease Management [facility] 09/17/2023 3:41 PM Time Spent on Encounter: 26 - 30 minutes documented in this encounter Plan of Treatment Upcoming Encounters Date Type Department Care Team (Late st Contact Info) Description 09/18/2023 1:30 PM EDT Pharmacy Pharmacy Hematology [facility] [address] [place] [address] [facility] Hem/Onc [address] [place] [address] 01/07/2024 2:45 PM EDT Office Visit Hematology/Oncology [facility] [place] 200 [facility] [place] [phone] Morales Rodriguez MD 200 [facility] [place] [address] 03/16/2024 1:00 PM EST Office Visit Family Medicine [address] [place] [phone] Mahogany Valentin MD [address] [place] [address] [place] [address] 03/20/2024 1:30 PM EST Imaging Radiology [address] [place] [address] 04/13/2024 1:00 PM EST Nurse Only Ancillary [address] [place] [address] [place], Nurse Annual Wellness [address] [place] [address] [place] [address] Health Maintenance Due Date Last Done Comments [...] this encounter Medical Devices Implanted Type Area Abrasive Sawyer Device Identifier Shelf Expiration Date Model / Serial / Lot Port Power Mri W/8fr Cath - [id number] Implanted:Qty : 1 on 05/25/2015 by Florence Mayfield MD at [facility] Left: Subclavian CR BARD : PERIPHERAL VASCULAR 08/17/2016 [id number] / / [id number] documented as of this encounter Visit Diagnoses Diagnosis 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 breast in female, estrogen receptor positive (HCC)- Primary documented in this encounter Care Teams Circulation Supervisor Relationship Specialty Start Date End Date Mahogany Valentin MD [address] [place] [address] [place] [phone] PCP - General Family Medicine 01/23/17 documented as of this encounter
--- OUTSIDE RECORDS SUMMARY | 2023-12-20 21:12 | External Medical Summary ---
Author Name Unknown Address Unknown Organization K09:[facility] [place] [address] Laboratory Report Ordering Provider Test Date Status MONIKA MARTINEZ 09/13/2023 10:32:00 Final Observation Date Value Abnormality Reference (Units ) Status SYNC LEUKOCYTES IN BLOOD BY AUTOMATED COUNT 09/13/2023 10:32:00 7.10 4.00-10.80 (K/uL) Final Segs 09/13/2023 10:32:00 64.5 40.0-75.0 (%) Final Lymphs % 09/13/2023 10:32:00 23.2 18.0-42.0 (%) Final Monos 09/13/2023 10:32:00 11.1 Above high normal 1.0-11.0 (%) Final Eosinophils 09/13/2023 10:32:00 1.1 0.0-6.0 (%) Final Basos 09/13/2023 10:32:00 0.1 0.0-2.0 (%) Final Absolute Segs 09/13/2023 10:32:00 4.57 1.80-7.70 (K/uL) Final Lymphs, absolute 09/13/2023 10:32:00 1.65 1.00-4.80 (K/ul) Final Monos, Abs 09/13/2023 10:32:00 0.79 0.00-1.10 (K/uL) Final Eos, Abs 09/13/2023 10:32:00 0.08 0.00-0.70 (K/uL) Final Basos, Abs 09/13/2023 10:32:00 0.01 0.00-0.20 (K/uL) Final Performing Location [facility] [place] [address]
--- OUTSIDE RECORDS SUMMARY | 2023-12-20 21:12 | External Medical Summary ---
Author Name Unknown Address Unknown Organization K01:[facility] [address] [place] [address] Laboratory Report Ordering Provider Test Date Status MONIKA MARTINEZ 09/13/2023 10:32:00 Final Observation Date Value Abnormality Reference (Units ) Status Hep B surface Ag 09/13/2023 10:32:00 Negative Neg ative Final Performing Location [facility] [address] [place] [address]
--- OUTSIDE RECORDS SUMMARY | 2023-12-20 21:12 | External Medical Summary | Summary of Care ---
Demographics Address [address] [place] [address] Home Phone Email Address Preferred Language Italian Marital Status Unknown Caodaism Affiliation Unknown Race White Ethnic Group Not or Lati no Author Name Unknown Organization [facility] Address [address] [facility] [place] [address] Phone [phone] Care Team Providers Care Corner Trimmer Operator Name Role Phone Mahogany Valentin MD Primary Care Provide r Reason for Referral * Precert (Within 10 days (routine)) - Pending Review Specialty Diagnoses / Procedures Referred By Contcorky acevedo Referred To Contact Radiology Diagnoses 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 breast in female, estrogen receptor positive (HCC) Metastasis to bone (HCC) Peritoneal carcinomatosis (HCC) Procedures PET CT SKULL BASE TO MID-THIGH FDG Morales Rodriguez MD [address] [place] [id number] Referral ID Status Reason Start Date Expiration Date V isits Requested Visits Authorized [id number] Pending Review 09/03/2023 999 999 Reason for Visit * Reason Comments Follow Up Return Encounter Details Date Type Department Care Team (Latest Contact Info) Description 09/03/2023 10:15 AM EDT Office Visit Hematology/Oncology State [facility] [address] [place] [address] Morales Rodriguez MD [address] [place] [address] 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 breast in female, estrogen receptor positive (HCC)*; Metastasis to bone (HCC); Peritoneal carcinomatosis (HCC) Allergies No known active allergiesdocumented as of this encounter (statuses as of 09/03/2023) Medications Medication Sig Dispensed Refills Start Date End Date Status Acetaminophen 325 MG Oral Capsule Take by mouth. 0 Active Anastrozole 1 MG Oral Tablet (Arimidex)Indication s: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 breast in female, estrogen receptor positive (HCC) Take 1 Tablet by mouth in the morning. 100 Tablet 3 04/02/2023 Active Venlafaxine HCl ER 150 MG Oral [...] the morning and 1 Tablet before bedtime. 0 Active documented as of this encounter (statuses as of 09/03/2023) Active Problems Problem Noted Date Diagnosed Date Granuloma annulare 01/23/2021 Malignant neoplasm of upper- [...] as of this encounter (statuses as of 09/03/2023) Resolved Problems Problem Noted Date Diagnosed Date [...] as of this encounter (statuses as of 09/03/2023) Immunizations Name Administration Dates Next Due COVID-19 mRNA, LNP-s, No Pre serve, 2-Dose Series ([facility]) 01/24/2021,06/29/2020,06/08/2020 COVID-19, LNP-s, No Preserve , Adam-sucrose, Ages 12+ (Pfizer) 09/05/2021 COVID-19, MRNA-LNP, 23-24, P F, 30 MCG/0.3 mL, 12 YRS AND ABOVE, IM ([facility]Com[facility]) 01/16/2023 Covid-19, Mrna, Lnp-s, Pf, B ivalent, 30 Mcg, IM, 12 yrs and above (Ph[facility]alink) 01/09/2022 Pneumococcal Conjugate Vacc, 13 Valent (Prevnar) [...] Sign Reading Time Taken Comments Blood Pressure 152/72 09/03/2023 9:56 AM EDT Pulse 99 09/03/2023 9:56 AM EDT Temperature 36.6 C (97.8 F) 09/03/2023 9:56 AM ED T Respiratory Rate - - Oxygen Saturation 90% 09/03/2023 9:56 AM EDT Inhaled Oxygen Concentration - - Weight 69.3 kg (152 lb 12.8 oz) 09/03/2023 9:56 AM EDT Height - - Body Mass Index 27.95 04/11/2023 2:05 PM EST documented in this encounter Progress Notes * Morales Rodriguez MD - 09/03/2023 10:15 AM EDT 78-year female, a case of left breast lobular carcinoma, S/P lumpectomy and sentinel lymph suresh biopsy, S/P adjuvant chemotherapy HEMATOLOGY/ONCOLOGY DIAGNOSIS: Left upper outer quadrant infiltrating lobular carcinoma, ER 100%, IA negative, Her-2 negative, Stage II B, T2N1a Suspected to have recurrent disease involving the peritoneum, retroperitoneal region, bone ( L4 vertebral body) (August 2023). -hypercalcemia.(August 2023).She received 1 dose of Zometa at [facility] when she was seen at [facility] ER on 08/30/2023 DATE OF DIAGNOSIS: 03/16/2015 TREATMENT RENDERED: Lumpectomy with SLNB on 05/04/15 followed by adjuvant A/C x 4 (every 3 weeks) + weekly Taxol x 12 (at cycle 8 dose decreased from 80 mg/m2 to 60 mg/m2 due to neuropathy) CURRENT TREATMENT: Anastrozole 1 mg once a day started in April,, but stopped in August 2017 with development of DVT. Had Eliquis for about 6 months and It was discontinued 04/11/2018 --> decided to restart anastrozole 1 mg once a day. - Eliquis for left lower extremity DVT started on 08/30/2023 (long-term anticoagulation). Interval history: She has come the clinic for the follow-up, she came to clinic by herself. Currently she is on Anastrozole 1 mg per day, Recently she started having increasing pain and some burning sensation left leg and some swelling, she was then seen at [facility] on 08/30/2023, found to have left lower extremity DVT, also found to have peritoneal carcinomatosis, retroperitoneal mass which was causing some mild bilateral hydronephrosis, hypercalcemia at that time. She has some constipation for the last 2 weeks, she says she has tried practically everything that she can take fvzt-yfa-wjyunec, vomited once, no distention of the abdomen, no fever, fair appetite, current weight around 152 lb, no headache. 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, T45.1X5A Age-related nuclear cataract, left H25.12 Malignant neoplasm of central portion of left breast in female, estrogen receptor positive (HCC) C50.112, Z17.0 History of DVT (deep vein thrombosis) Z86.718 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 breast in female, estrogen receptor positive (HCC) C50.412, Z17.0 Anxiety, generalized F41.1 Granuloma annulare L92.0 Past Surgical History Procedure Laterality Date Carpal tunnel surgery 1982 left Mastectomy, partial Left 05/04/2015 05/04/2015 MASTECTOMY PARTIAL performed by Florence Mayfield MD at [facility] Identify sentinel node, radioactive tracer Left 05/04/2015 INJECTION PROCEDURE FOR IDENTIFICATION SENTINEL NODE performed by Florence Mayfield MD at [facility] Bx lymph node deep axil Left 05/04/2015 BIOPSY LYMPH NODE DEEP AXILLARY OPEN performed by Florence Mayfield MD at [facility] Adjacent tissue trans >10sqcm trunk Left 05/04/2015 ADJACENT TISSUE TRANSFER TRUNK 10.1 TO 30SQ CM performed by Florence Mayfield MD at [facility] Inser tunn acc dev;5 yrs/older Right 05/25/2015 05/25/2015 INSERT TUNNELED CENTRAL VENOUS ACCESS WITH SUBQ PORT performed by Florence Mayfield MD at [facility] Social History Social History Main Topics [...] BY MOUTH EVERY DAY 90 Tablet 1 No current facility-administered medications for this visit. OBJECTIVE: On exam: [facility] 01/07/1999 [facility] 01/07/1999 Constitutional: Patient is alert, cooperative and [...] 8800, H&H of 12.4/37.6, Platelet count of 904084 -BUN/Creat: 8/0.8, AST 47, ALT 18, alkaline [...] suspicious findings noted (03/16/2022) She was at [facility] on 08/30/2023: Blood workup done on [...] causing obstruction of the proximal ureters causing uqlj-ui-sliwustg bilateral hydronephrosis -abnormal paravertebral soft tissue mass within the lower thoracic region -small ascites -left common femoral/superficial femoral vein thrombosis noted -1.8 cm lytic lesion in the L4 vertebral body. Bilateral lower extremity Doppler evaluation on 08/30/2023: -left lower extremity DVT involving the left common femoral, superficial femoral and popliteal veins. IMPRESSION/PLAN: Ms. Raymundo is a 77 year [...] strongly positive in 100% of malignant cells, IA negative, Her2/Vanita negative. She received 4 cycles [...] and IV Zometa x1 dose. I reviewed blood workup done yesterday, now Calcium level is normal. Slightly abnormal LFT noted Overall she has recurrent disease mainly involving the abdomen and bones, L4 vertebral body I would like to get PET-CT scan for initial evaluation and then will decide about biopsy. Discussed with the regarding next para treatment that can be considered with Faslodex and Abemaciclib combination. Planning to see her in the clinic after PET-CT scan is done. Dr. Morales Rodriguez Hem/Onc (This note was completed using the dictation program Fluency Direct. As such, there may be misspellings, word substitutions, or other variations that should not change the essence of the clinical content of this encounter note. If there is need for further clarification, please direct questions to the provider listed above.) documented in this encounter Nursing Notes * Nataly Baltazar MED ASSIST - 09/03/2023 9:57 AM EDT Patient identifed by name and [...] it for you? ALREADY ACTIVE Filed Vitals: 09/03/23 0956 BP: 152/72 Pulse: 99 Temp: 36.6 C (97.8 F) TempSrc: Tympanic SpO2: 90% Weight: 69.3 kg (152 lb 12.8 oz) Patient was instructed to [...] Care Team (Late st Contact Info) Description 09/05/2023 10:45 AM EDT Appointment Radiology, [address] [place] [address] 09/10/2023 10:00 AM EDT Office Visit Family [address] [place] [phone] Jasmyne Ross PA-C [address] [place] [address] [place] [address] 09/13/2023 10:15 AM EDT Office Visit Hematology/Oncology [facility] [address] [place] [phone] Morales Rodriguez MD [address] [place] [address] 01/07/2024 2:45 PM EDT Office Visit Hematology/Oncology Pia Zhang [place] [address] [place] [phone] Morales Rodriguez MD [address] [place] [address] 03/16/2024 1:00 PM EST Office Visit Family Medicine [address] [place] [phone] Mahogany Valentin MD [address] [place] [address] [place] [address] 03/20/2024 1:30 PM EST Imaging Radiology [address] [place] [address] 04/13/2024 1:00 PM EST Nurse Only Ancillary [address] [place] [address] Movveronica[place], Nurse Annual [address] [place] [address] Scheduled Orders Name Type Priority Associated Diagnoses Orde r Schedule PET CT SKULL BASE TO MID-THIGH FDG Medical Imaging Routine 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 breast in female, estrogen receptor positive (HCC) Metastasis to bone (HCC) Peritoneal carcinomatosis (HCC) Ordered: 09/03/2023 Health Maintenance Due Date Last Done Comments DXA Scan 01/17/2023 01/18/2020, 05/04/2016 Depression Screening 04/11/2024 04/11/2023 DTaP,Tdap,and Td Vaccines (2 - Td or Tdap) 08/04/2026 08/04/2016 Fecal Occult Blood Test Discontinued 01/03/2009 Colonoscopy Discontinued 05/01/2013 Colorectal Cancer Screening Discontinued Pneumococcal Vaccine: 65+ Years Completed 02/16/2015, 01/27/2013 Zoster Vaccines Completed 11/22/2019, 01/22, 02/22/2014 Influenza Vaccine (FLU shot) Completed 12/26/2022, 12/26/2022, 12/26/2021, Additional history exists COVID-19 Vaccine Completed 01/16/2023, , 09/05/2021, Additional history exists Cologuard Discontinued GARDASIL-HPV IMMUNIZATION [...] this encounter Medical Devices Implanted Type Area Lead Inspector Device Identifier Shelf Expiration Date Model / Serial / Lot Port Power Mri W/8fr Cath - [id number] Implanted:Qty : 1 on 05/25/2015 by Florence Mayfield MD at [facility] Left: Subclavian CR BARD : PERIPHERAL VASCULAR 08/17/2016 [id number] / / [id number] documented as of this encounter Visit Diagnoses Diagnosis 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 breast in female, estrogen receptor positive (HCC)- Primary Metastasis to bone (HCC) Secondary malignant neoplasm of bone and bone marrow Peritoneal carcinomatosis (HCC) Malignant neoplasm of peritoneum, unspecified documented in this encounter Care Teams Corner Trimmer Operator Relationship Specialty Start Date End Date Mahogany Valentin MD [address] [place] [address] [place] [address] PCP - General Family Medicine 01/23/17 documented as of this encounter
--- OUTSIDE RECORDS SUMMARY | 2023-12-20 21:12 | External Medical Summary | Summary of Care ---
Demographics Address [address] [place] [address] Home Phone Email Address .Pollsb t Preferred Language Upper Sorbian Marital Status Unknown Methodist Affiliation Unknown Race White Ethnic Group Not or Lati no Author Name Unknown Organization [facility] Address [address] [facility] [place] [address] Phone [phone] Care Team Providers Care Wire Stockkeeper Name Role Phone Mahogany Valentin MD Primary Care Provide r Encounter Details Date Type Department Care Team (Late st Contact Info) Description 09/13/2023 Orders Only Hematology/Oncology Pia Zhang [place] [address] [facility] [place] [phone] Morales [facility] [address] [facility] [address] Allergies No known active allergiesdocumented as of [...] mRNA, LNP-s, No Pre serve, 2-Dose Series ([facility]) 01/24/2021,06/29/2020,06/08/2020 COVID-19, LNP-s, No Preserve , Adam-sucrose, Ages 12+ ([facility]) 09/05/2021 COVID-19, MRNA-LNP, 23-24, P F, 30 MCG/0.3 mL, 12 YRS AND ABOVE, IM ([email or web address]) 01/16/2023 Covid-19, Mrna, Lnp-s, Pf, B ivalent, 30 Mcg, IM, 12 yrs and above ([facility]) 01/09/2022 Pneumococcal Conjugate Vacc, 13 Valent (Prevnar) [...] 1:15 PM EDT Pharmacy Pharmacy Hematology Oncology [address] [address] [facility] [place] [facility] Hem/Onc [address] [place] [address] 09/19/2023 1:30 PM EDT Pharmacy Pharmacy Hematology Oncology [address] [address] [facility] [place] [facility] Hem/Onc [facility] [place] [address] 01/07/2024 2:45 PM EDT Office Visit Hematology/Oncology Pia Zhang [place] [address] [place] [place] [phone] Morales Rodriguez MD [address] [place] [address] 03/16/2024 1:00 PM EST Office Visit Family Medicine [address] [place] [phone] Mahogany Valentin MD [address] [place] [address] [place] [address] 03/20/2024 1:30 PM EST Imaging Radiology [address] [place] [address] 04/13/2024 1:00 PM EST Nurse Only Ancillary [address] [place] [address] [place], Nurse [address] [place] [address] Health Maintenance Due Date Last Done Comments [...] this encounter Medical Devices Implanted Type Area Hose Builder Device Identifier Shelf Expiration Date Model / Serial / Lot Port Power Mri W/8fr Cath - [id number] Implanted:Qty : 1 on 05/25/2015 by Florence Mayfield MD at OR [facility] Left: Subclavian CR BARD : PERIPHERAL VASCULAR 08/17/2016 [id number] / / [id number] documented as of this encounter Care Teams Wire Stockkeeper Relationship Specialty Start Date End Date Mahogany Valentin MD [address] [place] [address] [place] [address] PCP - General Family Medicine 01/23/17 documented as of this encounter
--- OUTSIDE RECORDS SUMMARY | 2023-12-20 21:12 | External Medical Summary | Summary of Care ---
Demographics Address [address] [place] [address] Home Phone Email Address Preferred Language Faroese Marital Status Unknown Buddhism Affiliation Unknown Race White Ethnic Group Not or Lati no Author Name Unknown Organization [facility] Address [address] [facility] [place] [address] Phone [phone] Care Team Providers Care Page Designer Name Role Phone Mahogany Valentin MD Primary Care Provide r Reason for Visit * Reason Comments Outpatient Testing Encounter Details Date Type Department Care Team (Late st Contact Info) Description 09/13/2023 10:50 AM EDT Laboratory Laboratory Sc[facility] [address] [place] [phone] [place], Lab Scenery [address] [place] [address] 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 breast in female, estrogen receptor positive (HCC); Metastasis to bone (HCC); Peritoneal carcinomatosis (HCC); Metastasis to liver (HCC) Allergies No known active allergiesdocumented as of this encounter (statuses as of 09/13/2023) Medications Medication Sig Dispensed Refills Start Date End Date Status Acetaminophen 325 MG Oral Capsule Take by mouth. Active Anastrozole 1 MG Oral Tablet (Arimidex)Indication [...] morning and 1 Tablet before bedtime. Active documented as of this encounter (statuses [...] mRNA, LNP-s, No Pre serve, 2-Dose Series ([facility]) 01/24/2021,06/29/2020,06/08/2020 COVID-19, LNP-s, No Preserve , Adam-sucrose, Ages 12+ ([facility]) 09/05/2021 COVID-19, MRNA-LNP, 23-24, P F, 30 MCG/0.3 mL, 12 YRS AND ABOVE, IM ([facility]) 01/16/2023 Covid-19, Mrna, Lnp-s, Pf, B ivalent, 30 Mcg, IM, 12 yrs and above ([facility]) 01/09/2022 Pneumococcal Conjugate Vacc, 13 Valent (Prevnar) [...] Team (Late st Contact Info) Description 09/13/2023 1:00 PM EDT Pharmacy Pharmacy Hematology Oncology [facility] [address] [place] [address] [facility] [place] Hem/Onc [address] [place] [address] 01/07/2024 2:45 PM EDT Office Visit Hematology/Oncology [facility] [address] [facility] [facility] [phone] Morales Rodriguez MD [address] [place] [address] 03/16/2024 1:00 PM EST Office Visit Family Medicine [address] [place] [phone] Mahogany Valentin MD [address] [place] [address] [place] [address] 03/20/2024 1:30 PM EST Imaging Radiology [address] [place] [address] 04/13/2024 1:00 PM EST Nurse Only Ancillary [address] [place] [address] [place], Nurse Annual [address] [place] [address] Pending Results Name Type Priority Associated Diagnoses Date /Time PHOSPHORUS Lab Routine 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 breast in female, estrogen receptor positive (HCC) Metastasis to bone (HCC) Peritoneal carcinomatosis (HCC) Metastasis to liver (HCC) 09/13/2023 10:32 AM EDT Health Maintenance Due Date Last [...] this encounter Medical Devices Implanted Type Area Head Of Housekeeping Device Identifier Shelf Expiration Date Model / Serial / Lot Port Power Mri W/8fr Cath - [id number] Implanted:Qty : 1 on 05/25/2015 by Florence [facility]field MD at [facility] Left: Subclavian CR BARD : PERIPHERAL VASCULAR 08/17/2016 [id number] / / [id number] documented as of this encounter Visit Diagnoses Diagnosis 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 breast in female, estrogen receptor positive (HCC) Metastasis to bone (HCC) Secondary malignant neoplasm of bone and bone marrow Peritoneal carcinomatosis (HCC) Malignant neoplasm of peritoneum, unspecified Metastasis to liver (HCC) Secondary malignant neoplasm of liver documented in this encounter Care Teams Page Designer Relationship Specialty Start Date End Date Mahogany aVlentin MD [address] [place] [address] [place] [address] PCP - General Family Medicine 01/23/17 documented as of this encounter
--- OUTSIDE RECORDS SUMMARY | 2023-12-20 21:12 | External Medical Summary | Summary of Care ---
Demographics Address [address] [place] [address] Home Phone Email Address Preferred Language Tamazight Marital Status Unknown Episcopalian Affiliation Unknown Race White Ethnic Group Not or Lati no Author Name Unknown Organization [facility] Address [address] [facility] [address] Phone [phone] Care Team Providers Care Territory Manager General Sales Name Role Phone Mahogany Valentin MD Primary Care Provide r Reason for Visit * Reason Onset Date Comments Precert Future 09/13/2023 Faslodex, verzen io Encounter Details Date Type Department Care Team (Late st Contact Info) Description 09/13/2023 Telephone Hematology/Oncology Treatment, [place] [address] [place] [address] Morales Rodriguez MD [address] [place] [address] Precert Future (Faslodex, verzenio) Allergies No known [...] mRNA, LNP-s, No Pre serve, 2-Dose Series ([facility]) 01/24/2021,06/29/2020,06/08/2020 COVID-19, LNP-s, No Preserve , Adam-sucrose, Ages 12+ ([facility]) 09/05/2021 COVID-19, MRNA-LNP, 23-24, P F, 30 MCG/0.3 mL, 12 YRS AND ABOVE, IM ([facility]) 01/16/2023 Covid-19, Mrna, Lnp-s, Pf, B ivalent, 30 Mcg, IM, 12 yrs and above ([facility]) 01/09/2022 PPD 02/25/2003 Pneumococcal Conjugate Vacc, 13 [...] EDT Order received for verzenio, faslodex, xgeva. [place] plan built. Waiting for auth. Consent signed 09/13/23. Order forwarded to [facility]. Patient is going for hep [...] 1:00 PM EDT Pharmacy Pharmacy Hematology Oncology [address] [address] [facility] [place] [place], [facility] Hem[facility]Onc [address] [facility] [address] 01/07/2024 2:45 PM EDT Office Visit Hematology/Oncology [facility] [place] [address] [place] [phone] Morales Rodriguez MD 200 [facility] [place] [address] 03/16/2024 1:00 PM EST Office Visit Family Medicine [address] [place] [phone] Mahogany Valentin MD [address] [place] [address] [place] [address] 03/20/2024 1:30 PM EST Imaging Radiology [address] [place] [address] 04/13/2024 1:00 PM EST Nurse Only Ancillary [address] [place] [address] [place], Nurse [address] [place] [address] Health Maintenance Due Date Last Done Comments [...] this encounter Medical Devices Implanted Type Area Aircraft Cabin Cleaner Device Identifier Shelf Expiration Date Model / Serial / Lot Port Power Mri W/8fr Cath - [id number] Implanted:Qty : 1 on 05/25/2015 by Florence Mayfield MD at [facility] Left: Subclavian CR BARD : PERIPHERAL VASCULAR 08/17/2016 [id number] / / [id number] documented as of this encounter Care Teams Territory Manager General Sales Relationship Specialty Start Date End Date Mahogany Valentin MD [address] [place] [address] [place] [address] PCP - General Family Medicine 01/23/17 documented as of this encounter
--- OUTSIDE RECORDS SUMMARY | 2023-12-20 21:12 | External Medical Summary ---
Demographics Address [address] [facility] [place] [address] Phone Unavailable Preferred Language Unknown Marital Status Unknown Confucianist Affiliation Unknown Race Unknown Ethnic Group Unknown Author Name Unknown Address Unknown Organization [facility] [place] [address] Laboratory Report Ordering Provider Test Date Status MONIKA MARTINEZ 09/13/2023 10:32:00 Final Observation Date Value Abnormality Reference (Units ) Status Phosphate 09/13/2023 10:32:00 2.0 Below low normal 2.5 -4.8 (mg/dL) Final Performing Location [facility] [place] [address]
--- OUTSIDE RECORDS SUMMARY | 2023-12-20 21:12 | External Medical Summary | Summary of Care ---
Demographics Address [address] [place] [address] Home Phone Email Address Preferred Language Yi Marital Status Unknown Buddhism Affiliation Unknown Race White Ethnic Group Not or Lati no Author Name Unknown Organization [facility] Address [address] [address] Phone [phone] Care Team Providers Care Substation Mechanic Name Role Phone Mahogany Valentin MD Primary Care Provide r Reason for Visit * Reason Onset Date Comments Precert Future 09/13/2023 Faslodex, verzen io Encounter Details Date Type Department Care Team (Late st Contact Info) Description 09/13/2023 Telephone Hematology/Oncology Treatment, [place] [address] [place] [address] Morales Rodriguez MD [address] [place] [address] Precert Future (Faslodex, verzenio) Allergies No known [...] mRNA, LNP-s, No Pre serve, 2-Dose Series (Elevate Digital) 01/24/2021,06/29/2020,06/08/2020 COVID-19, LNP-s, No Preserve , Adam-sucrose, Ages 12+ (Elevate Digital) 09/05/2021 COVID-19, MRNA-LNP, 23-24, P F, 30 MCG/0.3 mL, 12 YRS AND ABOVE, IM ([facility]) 01/16/2023 Covid-19, Mrna, Lnp-s, Pf, B ivalent, 30 Mcg, IM, 12 yrs and above ([employer]lev[employer] Digital) 01/09/2022 PPD 02/25/2003 Pneumococcal Conjugate Vacc, 13 [...] EDT Order received for verzenio, faslodex, xgeva. [place] plan built. Waiting for auth. Consent signed 09/13/23. Order forwarded to [facility]. Patient is going for hep [...] Care Team (Latest Contact Info) Description 09/13/2023 10:50 AM EDT Laboratory Laboratory [facility] [address] [place] [phone] Silvio Zhang [facility] [address] [facility] [place] [address] 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 breast in female, estrogen receptor positive (HCC); Metastasis to bone (HCC); Peritoneal carcinomatosis (HCC); Metastasis to liver (HCC) 09/13/2023 1:00 PM EDT Pharmacy Pharmacy Hematology Oncology [facility] [address] [place] [address] [facility] Hem/[place]c [facility] [place] [address] 01/07/2024 2:45 PM EDT Office Visit Hematology/Oncology [facility] [place] [address] [place] [phone] Morales Rodriguez MD 200 [facility] [place] [address] 03/16/2024 1:00 PM EST Office Visit Family Medicine [address] [place] [phone] Mahogany Valentin MD [address] [place] [address] [place] [address] 03/20/2024 1:30 PM EST Imaging Radiology [address] [place] [address] 04/13/2024 1:00 PM EST Nurse Only Ancillary [address] [place] [address] Movveronicaey, Nurse Annual [address] [place] [address] Health Maintenance Due Date Last Done Comments [...] this encounter Medical Devices Implanted Type Area Tag Clerk Device Identifier Shelf Expiration Date Model / Serial / Lot Port Power Mri W/8fr Cath - [id number] Implanted:Qty : 1 on 05/25/2015 by Florence Mayfield MD at OR [facility] Left: Subclavian CR BARD : PERIPHERAL VASCULAR 08/17/2016 [id number] / / [id number] documented as of this encounter Care Teams Substation Mechanic Relationship Specialty Start Date End Date Mahogany Valentin MD [address] [place] [address] [place] [phone] PCP - General Family Medicine 01/23/17 documented as of this encounter
--- OUTSIDE RECORDS SUMMARY | 2023-12-20 21:12 | External Medical Summary | Summary of Care ---
Author Name Unknown Organization [facility] Address [address] [place] [address] Phone [phone] Care Team Providers Care Tobacco Shaker Name Role Phone Mahogany Valentin MD Primary Care Provide r Reason for Visit * Reason Comments Medication Management Encounter Details Date Type Department Care Team (Late st Contact Info) Description 09/13/2023 1:00 PM EDT Pharmacy Pharmacy Hematology Oncology [facility] [address] [place] [address] [facility] Hem/Onc [address] [place] [address] 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 [...] the morning. 30 Packet 3 09/13/2023 Active Anastrozole 1 MG Oral Tablet (Arimidex)Indication s: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 breast in female, estrogen receptor positive (HCC) Take 1 Tablet by mouth in the morning. 100 Tablet 3 04/02/2023 Discontinue d(Medicatio n List Clean Up) documented as of this [...] mRNA, LNP-s, No Pre serve, 2-Dose Series (TicketFire) 01/24/2021,06/29/2020,06/08/2020 COVID-19, LNP-s, No Preserve , Adam-sucrose, Ages 12+ (Ticket[employer]) 09/05/2021 COVID-19, MRNA-LNP, 23-24, P F, 30 MCG/0.3 mL, 12 YRS AND ABOVE, IM ([facility]) 01/16/2023 Covid-19, Mrna, Lnp-s, Pf, B ivalent, 30 Mcg, IM, 12 yrs and above ([employer]) 01/09/2022 Pneumococcal Conjugate Vacc, 13 Valent (Prevnar) [...] encounter Progress Notes * Jenny Otto, [facility] - 09/13/2023 12:47 PM EDT MEDICATION THERAPY MANAGEMENT ABEMACICLIB INITIAL INTAKE NOTE Kianna Raymundo [phone] Patient Phone Numbers Communication: Chart review Treatment: Medication: Abemaciclib (Verzenio) Indication/Staging/Diagnosis Code: ER+/FL-/HER2- breast cancer / Stage IIB / C50.412 Dose: 150mg BID Administration: +/- food Start Date: TBD Primary Programmer Engineering And Scientific/Oncologist: Dr. Otilia Rodriguez Supportive Care Meds: Fulvestrant Xgeva Ondansetron (to be ordered in beacon plan) Prophylactic Meds: See anticoagulation below Relevant Chronic Medications: Category Medications Pertinent Notes Anticoagulation Apixaban 5mg BID Pt hx Review of therapy: Line of therapy: second Previous therapy: 05/04/15: lumpectomy with SLNB 2015: adjuvant AC + Taxol 04/2016-08/2017; 04/11/18-08/2023: anastrozole Reviewed dosage prescribed for appropriateness (based on indication, hepatic function,renal function, etc): no changes Are appropriate supportive care medications prescribed? No, antiemetic to be ordered in beacon plan Are appropriate prophylactic medications prescribed? Yes Have baseline labs/tests been obtained? Yes Has hepatitis B screening been completed? Yes Potential drug-drug drug-herbal, drug-food, drug-disease interactions: No The Hematology/Oncology Oral Chemotherapy Clinic will assess medication compliance at each patient encounter Assessment and Plan: Felicity plan uploaded and sent to Dr. Rodriguez for signature MTM to follow up in 1 day for intro/med rec and 3 days to assess beacon plan signature and auth status Yes/no Date Action Taken Felicity plan entered? yes 09/13/23 Consent completed? yes 09/13/23 Intro/med rec completed? Precert completed? Test claim completed? Financial assistance needed? Physician signature? Rx released? Education completed? Follow up: 1 and 3 days Jenny Otto, PharmD, BCOP Clinical Pharmacist, [facility] Oral Chemotherapy [facility] 09/13/2023, 1:03 PM Monitoring Parameters: Estimated CrCl Serum creatinine: 1.1 mg/dL (H) 09/13/23 1032 Estimated creatinine clearance: 38.8 mL/min (A) Hepatitis panel LIP 09/13/23 test N/A - postmenopausal Suggested lab monitoring [...] Latest Reference Range & Units 09/13/23 10:32 WBC 4.00 - 10.80 K/uL 7.10 RBC 3.85 - 5.15 M/uL 4.04 HGB 12.0 - 15.3 g/dL 12.2 HCT 36.0 - 45.2 % 36.9 MCV 81.5 - 97.5 fL 91.3 MCH 27.0 - 34.0 pg 30.2 MCHC 32.0 - 36.0 g/dL 33.1 RDW 11.5 - 15.5 % 14.2 PLT 140 - 400 K/uL 278 MPV 6.6 - 11.1 fL 9.7 CBC WITH WBC DIFFERENTIAL Rpt ! Absolute Neutrophils 1.80 - 7.70 K/uL 4.57 Latest Reference Range & Units 09/13/23 10:32 Albumin 3.8 - 5.0 g/dL 4.1 AST 10 - 35 U/L 41 (H) ALT 10 - 35 U/L 11 Alkaline Phosphatase 35 - 130 U/L 136 (H) Bilirubin, Total <=1.2 mg/dL 0.4 Time Spent on Encounter: 16 - 20 minutes Encounter Group: Oncology Encounter Interventions Item Category: Oral Chemotherapy Abemaciclib Problem/Rationale: Indication: Needs additional medication therapy - Untreated condition Felicity Plan Review: Initial Plan/upload Pharmacist Intervention(s): Drug Interaction Screen, Lab monitoring, and Referral review Magnitude of Intervention: Monitoring with direction (Level 1) documented in this encounter Plan of Treatment Upcoming Encounters Date Type Department Care Team (Late st Contact Info) Description 09/17/2023 1:15 PM EDT Pharmacy Pharmacy Hematology Oncology [address] [address] [facility] [place] Hem/Onc [address] [place] [address] 09/19/2023 1:30 PM EDT Pharmacy Pharmacy Hematology Oncology [address] [address] [facility] [place] Hem/Onc [address] [facility] [place] [address] 01/07/2024 2:45 PM EDT Office Visit Hematology/Oncology [employer] [address] [place] [phone] Morales Rodriguez MD [address] [place] [address] 03/16/2024 1:00 PM EST Office Visit Family Medicine [address] [place] [phone] Mahogany Valentin MD [address] [place] [address] [place] [address] 03/20/2024 1:30 PM EST Imaging Radiology [address] [place] [address] 04/13/2024 1:00 PM EST Nurse Only Ancillary [address] [place] [address] [place], Nurse Annual [address] [place] [address] Health Maintenance Due Date Last Done Comments [...] this encounter Medical Devices Implanted Type Area Stove Mounter Device Identifier Shelf Expiration Date Model / Serial / Lot Port Power Mri W/8fr Cath - [id number] Implanted:Qty : 1 on 05/25/2015 by Florence Mayfield MD at [facility] Left: Subclavian CR BARD : PERIPHERAL VASCULAR 08/17/2016 [id number] / / [id number] documented as of this encounter Visit Diagnoses Diagnosis 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 breast in female, estrogen receptor positive (HCC)- Primary documented in this encounter Care Teams Tobacco Shaker Relationship Specialty Start Date End Date Mahogany Valentin MD [address] [place] [address] [place] [address] PCP - General Family Medicine 01/23/17 documented as of this encounter
--- OUTSIDE RECORDS SUMMARY | 2023-12-20 21:12 | External Medical Summary | Summary of Care ---
Demographics Address [address] [place] [address] Home Phone Email Address Preferred Language Swedish Marital Status Unknown Methodist Affiliation Unknown Race White Ethnic Group Not or Lati no Author Name Unknown Organization [facility] Address [address] [facility] [address] Phone [phone] Care Team Providers Care Eyeglass Lens Generator Name Role Phone Mahogany Valentin MD Primary Care Provide r Reason for Visit * Reason Comments Re-Check Encounter Details Date Type Department Care Team (Late st Contact Info) Description 09/10/2023 10:00 AM EDT Office Visit Family Medicine [address] [place] [phone] Jasmyne Ross PA-C [address] [place] [address] [place] [address] Dyslipidemia, goal LDL below 160*; Malignant neoplasm of central portion of left breast in female, estrogen receptor positive (HCC); History of DVT (deep vein thrombosis); 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 breast in female, estrogen receptor positive (HCC); Anxiety, generalized Allergies No known active allergiesdocumented as of this encounter (statuses as of 09/10/2023) Medications Medication Sig Dispensed Refills Start Date [...] as of this encounter (statuses as of 09/10/2023) Active Problems Problem Noted Date Diagnosed Date [...] as of this encounter (statuses as of 09/10/2023) Resolved Problems Problem Noted Date Diagnosed Date [...] as of this encounter (statuses as of 09/10/2023) Immunizations Name Administration Dates Next Due COVID-19 mRNA, LNP-s, No Pre serve, 2-Dose Series ([employer]) 01/24/2021,06/29/2020,06/08/2020 COVID-19, LNP-s, No Preserve , Adam-sucrose, Ages 12+ ([employer]) 09/05/2021 COVID-19, MRNA-LNP, 23-24, P F, 30 MCG/0.3 mL, 12 YRS AND ABOVE, IM ([facility]) 01/16/2023 Covid-19, Mrna, Lnp-s, Pf, B ivalent, 30 Mcg, IM, 12 yrs and above ([employer]) 01/09/2022 Pneumococcal Conjugate Vacc, 13 Valent (Prevnar) [...] Sign Reading Time Taken Comments Blood Pressure 144/70 09/10/2023 9:49 AM EDT Pulse 90 09/10/2023 9:49 AM EDT Temperature 36.1 C (97 F) 09/10/2023 9:49 AM EDT Respiratory Rate 16 09/10/2023 9:49 AM EDT Oxygen Saturation 94% 09/10/2023 9:49 AM EDT Inhaled Oxygen Concentration - - Weight 65.8 kg (145 lb) 09/10/2023 9:49 AM EDT Height 157.5 cm (5' 2") 09/10/2023 9:49 AM EDT Body Mass Index 26.52 09/10/2023 9:49 AM EDT documented in this encounter Progress Notes * Jasmyne Ross PA-C - 09/10/2023 9:55 AM EDT Nursing Notes: Stephanie Davis, RN 09/10/23 0954 Sign at exiting of workspace Dr Valentin pt her for check up. Pt was in ER for a blood clot, started on Eliquis. Had a CT scan done showing some other spots in her body, she had a PET SCAN ordered by Dr Rodriguez, she follows up on for this. Pt is tired, but no other symptoms Pt here today for recheck. Pt with PMH of anxiety/depression, dyslipidemia, breast ca. Pt just had PET scan which showed mets. Has FU appt with oncology in a few days. Pt has no issues or concerns, for her PCP, today. Review of patient's allergies indicates: No Known [...] No current facility-administered medications for this visit. Past Medical History: Diagnosis Date Age-related cataract [...] complication Mixed dyslipidemia Pertussis Tobacco use disorder Social History Socioeconomic History Marital status: Spouse name: Not on file Number of children: 0 Years of education: Not on file Highest education level: Not on file Occupational History Occupation: personal chef Employer: [employer] Tobacco Use Smoking status: Former Current packs/day: 0.00 Average packs/day: 0.5 packs/day for 30.0 years (15.0 ttl pk-yrs) Types: Cigarettes Start date: 05/24/1985 Quit date: 05/24/2015 Years since quittin.3 Smokeless tobacco: Never Tobacco comments: 5-6 cig/day, Cut down from 1 pack a day. Vaping Use Vaping status: Never Used Substance and Sexual Activity Alcohol use: No Comment: Quit 29 years ago Drug use: No Sexual activity: Yes Partners: Male Other Topics Concern Not on file Social History Narrative 2008, diabetes, 30yrs No Social Determinants of Health Financial Resource Strain: Not on file Food Insecurity: No Food Insecurity (04/11/2023) Hunger Vital Sign Worried About Running Out of Food in the Last Year: Never true Ran Out of Food in the Last Year: Never true Transportation Needs: Not on file Physical Activity: Not on file Stress: Not on file Social Connections: Not on file Intimate Partner Violence: Not on file Housing Stability: Not on file O:Blood pressure 144/70, pulse 90, temperature 36.1 C (97 F), resp. rate 16, height 1.575 m (5'2"), weight 65.8 kg (145 lb), last menstrual period 01/07/1999, SpO2 94%. GENERAL: alert, healthy, and no distress NECK: supple, no adenopathy, no bruits, thyroid normal size, non-tender, without nodularity EYES: PERRLA, conjunctiva are pink and non-injected, sclera clear EARS: External ears normal, Canals clear, TM's Normal NOSE: no mucosal erythema, no mucosal edema, no purulent discharge OROPHARYNX: no exudate, no erythema, lips, buccal mucosa, and tongue normal, and mucous membranes are moist HEART: regular rate & rhythm, no murmur, and no gallops LUNGS: chest symmetric with normal AP diameter, no chest deformities noted, no chest wall tenderness, lungs clear to auscultation A:Dyslipidemia, goal LDL below 160 (Primary) Malignant neoplasm of central portion of left breast in female, estrogen receptor positive (HCC) History of DVT (deep vein thrombosis) 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 breast in female, estrogen receptor positive (HCC) Anxiety, generalized Continue current meds. Keep appt with oncology. Any questions/problems, please call. If anything changes, worsens, develops new sx, please call OL[facility]. Follow Up: Return if symptoms worsen or fail to improve. Jasmyne Ross PA-C documented in this encounter Nursing Notes * Stephanie Davis RN - 09/10/2023 9:[address] Valentin pt her for check up. Pt was in ER for a blood clot, started on Eliquis. Had a CT scan done showing some other spots in her body, she had a PET SCAN ordered by Dr Rodriguez, she follows up on for this. Pt is tired, but no other symptoms documented in this encounter Plan of Treatment Upcoming Encounters Date Type Department Care Team (Late st Contact Info) Description 09/13/2023 10:15 AM EDT Office Visit Hematology/Oncology [facility] [place] [address] [facility] [place] [phone] Morales Rodriguez MD [address] [facility] [address] [place] [address] 01/07/2024 2:45 PM EDT Office Visit Hematology/Oncology [facility] [place] [address] [facility] [place] [phone] Morales Rodriguez MD [address] [facility] [place] [address] 03/16/2024 1:00 PM EST Office Visit Family Medicine [address] [place] [phone] Mahogany Valentin MD [address] [place] [address] [place] [address] 03/20/2024 1:30 PM EST Imaging Radiology [address] [place] [address] 04/13/2024 1:00 PM EST Nurse Only Ancillary [address] [place] [address] [place], Nurse Annual Wellness [address] [place] [address] [place] [address] Health Maintenance Due Date Last Done Comments [...] this encounter Medical Devices Implanted Type Area Distribution Spec Device Identifier Shelf Expiration Date Model / Serial / Lot Port Power Mri W/8fr Cath - [id number] Implanted:Qty : 1 on 05/25/2015 by Florence Mayfield MD at [facility] Left: Subclavian CR BARD : PERIPHERAL VASCULAR 08/17/2016 [id number] / / [id number] documented as of this encounter Visit Diagnoses Diagnosis Dyslipidemia, goal LDL below 160- Primary Other and unspecified hyperlipidemia Malignant neoplasm of central portion of left breast in female, estrogen receptor positive (HCC) History of DVT (deep vein thrombosis) Personal history of venous thrombosis and embolism 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 breast in female, estrogen receptor positive (HCC) Anxiety, generalized Generalized anxiety disorder documented in this encounter Care Teams Eyeglass Lens Generator Relationship Specialty Start Date End Date Mahogany Valentin MD [address] [place] [address] [place] [address] PCP - General Family Medicine 01/23/17 documented as of this encounter
--- OUTSIDE RECORDS SUMMARY | 2023-12-20 21:12 | External Medical Summary ---
Author Name Unknown Address Unknown Organization K09:[facility] [place] [address] Laboratory Report Ordering Provider Test Date Status MONIKA MARTINEZ 09/13/2023 10:32:00 Final Observation Date Value Abnormality Reference (Units ) Status WBC, Total 09/13/2023 10:32:00 7.10 4.00-10.8 0 (K/uL) Final RBC 09/13/2023 10:32:00 4.04 3.85-5.15 (M/uL) Final Hemoglobin 09/13/2023 10:32:00 12.2 12.0-15.3 (g/dL) Final HCT 09/13/2023 10:32:00 36.9 36.0-45.2 (%) Final MCV 09/13/2023 10:32:00 91.3 81.5-97.5 (fL) Final MCH 09/13/2023 10:32:00 30.2 27.0-34.0 (pg) Final MCHC 09/13/2023 10:32:00 33.1 32.0-36.0 (g/dL) Final RDW 09/13/2023 10:32:00 14.2 11.5-15.5 (%) Final Platelets 09/13/2023 10:32:00 278 140-400 (K /uL) Final MPV 09/13/2023 10:32:00 9.7 6.6-11.1 ( fL) Final Performing Location [facility] [place] [address]
--- OUTSIDE RECORDS SUMMARY | 2023-12-20 21:12 | External Medical Summary ---
Author Name Unknown Address Unknown Organization K01:[facility] [place] [facility] [address] [place] [address] Laboratory Report Ordering Provider Test Date Status MONIKA MARTINEZ 09/02/2023 12:56:52 Final Observation Date Value Abnormality Reference (Units ) Status WBC, Total 09/02/2023 12:56:52 8.80 4.00-10.80 (K/uL) Final RBC 09/02/2023 12:56:52 4.06 3.85-5.15 (M/uL) Final Hemoglobin 09/02/2023 12:56:52 12.4 12.0-15.3 (g/dL) Final HCT 09/02/2023 12:56:52 37.6 36.0-45.2 (%) Final MCV 09/02/2023 12:56:52 92.6 81.5-97.5 (fL) Final MCH 09/02/2023 12:56:52 30.5 27.0-34.0 (pg) Final MCHC 09/02/2023 12:56:52 33.0 32.0-36.0 (g/dL) Final RDW 09/02/2023 12:56:52 13.8 11.5-15.5 (%) Final Platelets 09/02/2023 12:56:52 260 140-400 (K/uL) Final MPV 09/02/2023 12:56:52 10.9 6.6-11.1 (fL) Final Nucleated erythrocytes/100 leukocytes [Ratio] in Blood by Automated count 09/02/2023 12:56:52 0 <=0 (/100 WBCs) Final Performing Location [facility] [place] - [address] [place] [address]
--- OUTSIDE RECORDS SUMMARY | 2023-12-20 21:12 | External Medical Summary ---
Demographics Address [address] [facility] [address] [place] [address] Phone Unavailable Preferred Language Unknown Marital Status Unknown Episcopal Affiliation Unknown Race Unknown Ethnic Group Unknown Author Name Unknown Address Unknown Organization K01:[facility] - [address] [place] [address] Laboratory Report Ordering Provider Test Date Status LUCILA MARTINEZEL 09/02/2023 12:56:52 Final Observation Date Value Abnormality Reference (Units ) Status Magnesium 09/02/2023 12:56:52 2.3 1.5-2.6 (m g/dL) Final Performing Location [facility] - [address] [place] [address]
--- OUTSIDE RECORDS SUMMARY | 2023-12-20 21:12 | External Medical Summary ---
Demographics Address [address] [place] [address] Phone Unavailable Preferred Language Unknown Marital Status Unknown Anabaptist Affiliation Unknown Race Unknown Ethnic Group Unknown Author Name Unknown Address Unknown Organization K09:[facility] [address] [place] [address] Laboratory Report Ordering Provider Test Date Status MONIKA MARTINEZ 09/13/2023 10:32:00 Final Observation Date Value Abnormality Reference (Units ) Status BUN 09/13/2023 10:32:00 19 6-20 (mg/dL) Final Creatinine 09/13/2023 10:32:00 1.1 Above high normal 0.5-1.0 (mg/dL) Final Glomerular filtration rate/1.73 sq M.predicted [Volume Rate/Area] in Serum, Plasma or Blood by Creatinine-based formula (CKD-EPI) 09/13/2023 10:32:00 53 Below low normal >=60 (mL/min) Final eGFR is calculated based on the CKD-EPI 2020 equation Sodium 09/13/2023 10:32:00 138 135-146 (m mol/L) Final Potassium 09/13/2023 10:32:00 3.7 3.5-5.1 (m mol/L) Final Cl 09/13/2023 10:32:00 103 98-107 (mm ol/L) Final CO2 09/13/2023 10:32:00 22 22-32 (mmo l/L) Final Anion gap 09/13/2023 10:32:00 13 7-15 (mmol /L) Final Glucose 09/13/2023 10:32:00 104 70-120 (mg /dL) Final Albumin 09/13/2023 10:32:00 4.1 3.8-5.0 (g /dL) Final AST (Aspartate aminotransferase) 09/13/2023 10:32:00 41 Above high normal 10-35 (U/L) Final Alk Phos 09/13/2023 10:32:00 136 Above high normal 35 -130 (U/L) Final Bilirubin, Total 09/13/2023 10:32:00 0.4 <=1 .2 (mg/dL) Final Calcium 09/13/2023 10:32:00 9.4 8.4-10.2 ( mg/dL) Final Protein 09/13/2023 10:32:00 7.4 6.0-8.3 (g /dL) Final ALT (Alanine aminotransferase) 09/13/2023 10:32:00 11 10-35 (U/L) Tony collins Performing Location [facility] [address] [place] [address]
--- OUTSIDE RECORDS SUMMARY | 2023-12-20 21:12 | External Medical Summary | Summary of Care ---
Demographics Address [address] [place] [address] Home Phone Email Address Preferred Language Ukrainian Marital Status Unknown Buddhism Affiliation Unknown Race White Ethnic Group Not or Lati no Author Name Unknown Organization [facility] Address [address] [facility] [place] [address] Phone [phone] Care Team Providers Care Regulatory Affairs Specialist Name Role Phone Mahogany Valentin MD Primary Care Provide r Encounter Details Date Type Department Care Team (Late st Contact Info) Description 09/13/2023 Orders Only Hematology/Oncology Pia Zhang [place] 200 [facility] [place] [address] Morales Rodriguez MD 200 [facility] [place] [address] 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 breast in female, estrogen receptor positive (HCC)*; Metastasis to bone (HCC); Peritoneal carcinomatosis (HCC); Metastasis to liver (HCC); Hypophosphatemia Allergies No known active allergiesdocumented as of this encounter (statuses as of 09/13/2023) Medications Medication Sig Dispensed Refills Start Date End Date Status Acetaminophen 325 MG Oral Capsule Take by mouth. Active Anastrozole 1 MG Oral Tablet (Arimidex)Indications: 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 [...] mRNA, LNP-s, No Pre serve, 2-Dose Series ([employer] ([place])) 01/24/2021,06/29/2020,06/08/2020 COVID-19, LNP-s, No Preserve , Adam-sucrose, Ages 12+ (Pfizer) 09/05/2021 COVID-19, MRNA-LNP, 23-24, P F, 30 MCG/0.3 mL, 12 YRS AND ABOVE, IM ([employer]-Comirnat) 01/16/2023 Covid-19, Mrna, Lnp-s, Pf, B ivalent, 30 Mcg, IM, 12 yrs and above ([employer] ([place])) 01/09/2022 Pneumococcal Conjugate Vacc, 13 Valent (Prevnar) [...] Notes * Morales Rodriguez MD - 09/13/2023 12:17 PM EDT -phosphorus level is 2.0. Would like to start oral phosphatase supplementation. documented in this encounter Plan of Treatment Upcoming Encounters Date Type Department Care Team (Late st Contact Info) Description 09/13/2023 1:00 PM EDT Pharmacy Pharmacy Hematology Oncology [facility] [place] [address] [place] [address] [facility] Hem/Onc [address] [place] [address] 01/07/2024 2:45 PM EDT Office Visit Hematology/Oncology [facility] 200 [facility] [place] [phone] Morales Rodriguez MD 200 [facility] [place] [address] 03/16/2024 1:00 PM EST Office Visit Family Medicine [address] [place] [phone] Mahogany Valentin MD [address] [place] [address] [place] [address] 03/20/2024 1:30 PM EST Imaging Radiology [address] [place] [address] 04/13/2024 1:00 PM EST Nurse Only Ancillary [address] [place] [address] [place], Nurse Annual [address] [place] [address] Health Maintenance Due Date Last Done Comments [...] this encounter Medical Devices Implanted Type Area Lease Administration Analyst Device Identifier Shelf Expiration Date Model / Serial / Lot Port Power Mri W/8fr Cath - [id number] Implanted:Qty : 1 on 05/25/2015 by Florence Mayfield MD at [facility] Left: Subclavian CR BARD : PERIPHERAL VASCULAR 08/17/2016 [id number] / / [id number] documented as of this encounter Visit Diagnoses Diagnosis 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 breast in female, estrogen receptor positive (HCC)- Primary Metastasis to bone (HCC) Secondary malignant neoplasm of bone and bone marrow Peritoneal carcinomatosis (HCC) Malignant neoplasm of peritoneum, unspecified Metastasis to liver (HCC) Secondary malignant neoplasm of liver Hypophosphatemia Disorders of phosphorus metabolism documented in this encounter Care Teams Regulatory Affairs Specialist Relationship Specialty Start Date End Date Mahogany Valentin MD [address] [place] [address] [place] [address] PCP - General Family Medicine 01/23/17 documented as of this encounter
--- OUTSIDE RECORDS SUMMARY | 2023-12-20 21:12 | External Medical Summary | Summary of Care ---
Demographics Address [address] [place] [address] Home Phone Email Address Preferred Language Setswana Marital Status Unknown Spiritism Affiliation Unknown Race White Ethnic Group Not or Lati no Author Name Unknown Organization [facility] Address [address] [facility] [place] [address] Phone [phone] Care Team Providers Care Electric Motor Tester Name Role Phone Mahogany Valentin MD Primary Care Provide r Reason for Visit * Reason Comments Outpatient Testing Encounter Details Date Type Department Care Team (Late st Contact Info) Description 09/02/2023 1:10 PM EDT Laboratory Laboratory [address] [place] [phone] [place], Lab [address] [place] [address] Malignant neoplasm of central portion of left breast in female, estrogen receptor positive (HCC) Allergies No known active allergiesdocumented as of this encounter (statuses as of 09/02/2023) Medications Medication Sig Dispensed Refills Start Date [...] as of this encounter (statuses as of 09/02/2023) Active Problems Problem Noted Date Diagnosed Date [...] as of this encounter (statuses as of 09/02/2023) Resolved Problems Problem Noted Date Diagnosed Date [...] 02/16/2015 Osteoporosis 01/07/2003 02/16/2015 Tobacco use disorder 10/17/2 017 documented as of this encounter (statuses as of 09/02/2023) Immunizations Name Administration Dates Next Due COVID-19 mRNA, LNP-s, No Pre serve, 2-Dose Series ([employer]) 01/24/2021,06/29/2020,06/08/2020 COVID-19, LNP-s, No Preserve , Adam-sucrose, Ages 12+ (Pfizer) 09/05/2021 COVID-19, MRNA-LNP, 23-24, P F, 30 MCG/0.3 mL, 12 YRS AND ABOVE, IM ([employer]-Comirnat) 01/16/2023 Covid-19, Mrna, Lnp-s, Pf, B ivalent, 30 Mcg, IM, 12 yrs and above ([employer]) 01/09/2022 Pneumococcal Conjugate Vacc, 13 Valent (Prevnar) [...] Care Team (Late st Contact Info) Description 09/03/2023 10:15 AM EDT Office Visit Hematology/Oncology [place] [address] [place] [phone] Morales Rodriguez MD [address] [place] [address] [place] [address] 09/10/2023 10:00 AM EDT Office Visit [address] [phone] Jasmyne Ross PA-C [address] [place] [address] [place] [address] 01/07/2024 2:45 PM EDT Office Visit Hematology/Oncology [facility] [place] [place] [address] [place] [phone] Morales Rodriguez MD 200 [facility] [place] [address] 03/16/2024 1:00 PM EST Office Visit Family [address] [place] [address] Mahogany Valentin MD [address] [place] [address] [place] [address] 03/20/2024 1:30 PM EST Imaging Radiology [address] [place] [address] 04/13/2024 1:00 PM EST Nurse Only Ancillary [address] [place] [address] [place], Nurse Annual [address] [place] [address] Pending Results Name Type Priority Associated Diagnoses Date /Time CBC WITH WBC DIFFERENTIAL Lab STAT Malignant neoplasm of central portion of left breast in female, estrogen receptor positive (HCC) 09/02/2023 12:56 PM EDT COMPREHENSIVE METABOLIC PANEL Lab STAT Malignant neoplasm of central portion of left breast in female, estrogen receptor positive (HCC) 09/02/2023 12:56 PM EDT MAGNESIUM Lab STAT Malignant neoplasm of central portion of left breast in female, estrogen receptor positive (HCC) 09/02/2023 12:56 PM EDT CBC Lab STAT Malignant neoplasm of central portion of left breast in female, estrogen receptor positive (HCC) 09/02/2023 12:56 PM EDT DIFFERENTIAL, AUTOMATED Lab STAT Malignant neoplasm of central portion of left breast in female, estrogen receptor positive (HCC) 09/02/2023 12:56 PM EDT Health Maintenance Due Date Last [...] this encounter Medical Devices Implanted Type Area Job Honer Device Identifier Shelf Expiration Date Model / Serial / Lot Port Power Mri W/8fr Cath - [id number] Implanted:Qty : 1 on 05/25/2015 by Florence Mayfield MD at [facility] Left: Subclavian CR BARD : PERIPHERAL VASCULAR 08/17/2016 [id number] / / [id number] documented as of this encounter Visit Diagnoses Diagnosis Malignant neoplasm of central portion of left breast in female, estrogen receptor positive (HCC) documented in this encounter Care Teams Electric Motor Tester Relationship Specialty Start Date End Date Mahogany Valentin MD [address] [place] [address] [place] [address] PCP - General Family Medicine 01/23/17 documented as of this encounter
--- OUTSIDE RECORDS SUMMARY | 2023-12-20 21:12 | External Medical Summary | Summary of Care ---
Demographics Address [address] [place] [address] Home Phone Email Address Preferred Language Polish Marital Status Unknown Oriental Orthodox Affiliation Unknown Race White Ethnic Group Not or Lati no Author Name Unknown Organization [facility] Address [address] [place] [address] Phone [phone] Care Team Providers Care Elementary Supervisor Name Role Phone Mahogany Valentin MD Primary Care Provide r Reason for Visit * Precert (Within 10 days (routine)) - Pending Review Specialty Diagnoses / Procedures Referred By Contac t Referred To Contact Radiology Diagnoses 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 breast in female, estrogen receptor positive (HCC) Metastasis to bone (HCC) Peritoneal carcinomatosis (HCC) Procedures PET CT SKULL BASE TO MID-THIGH FDG Morales Rodriguez MD 200 [place] [address] Referral ID Status Reason Start Date Expiration Date V isits Requested Visits Authorized [id number] Pending Review 09/03/[phone] Encounter Details Date Type Department Care Team (Latest Contact Info) Description 09/05/2023 10:10 AM EDT - 09/05/2023 11:59 PM EDT Hospital Encounter Radiology, [address] [phone] Arrived Discharge Disposition: Home - Self Care Allergies No known active allergiesdocumented as of this encounter (statuses as of 09/06/2023) Medications Medication Sig Dispensed Refills Start Date [...] as of this encounter (statuses as of 09/06/2023) Active Problems Problem Noted Date Diagnosed Date [...] as of this encounter (statuses as of 09/06/2023) Resolved Problems Problem Noted Date Diagnosed Date [...] as of this encounter (statuses as of 09/06/2023) Immunizations Name Administration Dates Next Due COVID-19 mRNA, LNP-s, No Pre serve, 2-Dose Series ([employer]) 01/24/2021,06/29/2020,06/08/2020 COVID-19, LNP-s, No Preserve , Adam-sucrose, Ages 12+ (Pfizer) 09/05/2021 COVID-19, MRNA-LNP, 23-24, P F, 30 MCG/0.3 mL, 12 YRS AND ABOVE, IM ([employer]-Comirnat) 01/16/2023 Covid-19, Mrna, Lnp-s, Pf, B ivalent, 30 Mcg, IM, 12 yrs and above ([employer]) 01/09/2022 Pneumococcal Conjugate Vacc, 13 Valent (Prevnar) [...] 10:00 AM EDT Office Visit Family Medicine [address] [place] [phone] Jasmyne Ross PA-C [address] [place] [address] [place] [address] 09/13/2023 10:15 AM EDT Office Visit Hematology/Oncology Pia Zhang [place] [facility] [place] [address] Morales Rodriguez MD [address] [place] [address] 01/07/2024 2:45 PM EDT Office Visit Hematology/Oncology [facility] [place] [address] [place], [place] [phone] Morales Rodriguez MD [address] [place], [place] [address] 03/16/2024 1:00 PM EST Office Visit Family Medicine [address] [place] [phone] Mahogany Valentin MD [address] [place] [address] [place] [address] 03/20/2024 1:30 PM EST Imaging Radiology [address] [place] [address] 04/13/2024 1:00 PM EST Nurse Only Ancillary [address] [place] [address] [place], Nurse [address] [place] [address] Health Maintenance Due Date Last Done Comments [...] this encounter Medical Devices Implanted Type Area Rubber Mixer Device Identifier Shelf Expiration Date Model / Serial / Lot Port Power Mri W/8fr Cath - [id number] Implanted:Qty : 1 on 05/25/2015 by Florence Mayfield MD at [facility] Left: Subclavian CR BARD : PERIPHERAL VASCULAR 08/17/2016 [id number] / / [id number] documented as of this encounter Procedures Procedure Name Priority Date/Time Associated Diagnosis Comments GLUCOSE METER, POINT OF CARE OLIVIA 09/05/2023 10:32 AM EDT documented in this encounter Results * GLUCOSE METER, POINT OF CARE (09/05/2023 10:32 AM EDT) Glucose Meter 94 70 - 120 mg/dL 09/05/2023 4:05 PM EDT [facility] Blood Whole blood specimen / Unknown 09/05/2023 10:32 AM EDT 09/05/2023 4:05 PM EDT No Physician Data Unknown LAB POINT OF C ARE TEST DOCKED DEVICE UNSOLICITED RESULTS [facility] [address] [place] [address] documented in this encounter Administered Medications Inactive Administered Medications - up to 3 most recent administrations Medication Order MAR Action Action Date Dose Rate Site fludeoxyglucose f-18 (Fdg) inj 12.04 millicurie 12.04 millicurie, Intravenous, ONCE, On Barbara 09/05/23 at 1046, For 1 dose, Radiology Medication Routing (Non-IR) Given 09/05/2023 10:33 AM EDT 12.04 millicuries Antecubital Right documented in this encounter Care Teams Elementary Supervisor Relationship Specialty Start Date End Date Mahogany Valentin MD [address] [place] [address] [place] [phone] PCP - General Family Medicine 01/23/17 documented as of this encounter
--- OUTSIDE RECORDS SUMMARY | 2023-12-20 21:12 | External Medical Summary ---
Author Name Unknown Address Unknown Organization : Laboratory Report Ordering Provider Test Date Status NO,UNKNOWN 09/05/2023 10:32:13 Final Observation Date Value Abnormality Reference (Units ) Status Glucose Point of Care 09/05/2023 10:32:13 94 70-120 (mg/dL) Final Performing Location
--- OUTSIDE RECORDS SUMMARY | 2023-12-20 21:12 | External Medical Summary ---
Demographics Address [address] [place] [address] Phone Unavailable Preferred Language Unknown Marital Status Unknown Uatsdin Affiliation Unknown Race Unknown Ethnic Group Unknown Author Name Unknown Address Unknown Organization K01:LABORATORY [facility] [place] [place] - [address] [place] [address] Laboratory Report Ordering Provider Test Date Status MONIKA MARTINEZ 09/02/2023 12:56:52 Final Observation Date Value Abnormality Reference (Units ) Status BUN 09/02/2023 12:56:52 8 6-20 (mg/dL) Final Creatinine 09/02/2023 12:56:52 0.8 0.5-1.0 (mg/dL) Final Glomerular filtration rate/1.73 sq M.predicted [Volume Rate/Area] in Serum, Plasma or Blood by Creatinine-based formula (CKD-EPI) 09/02/2023 12:56:52 80 >=60 (mL/min) Final eGFR is calculated based on the CKD-EPI 2020 equation Sodium 09/02/2023 12:56:52 137 135-146 (m mol/L) Final Potassium 09/02/2023 12:56:52 4.1 3.5-5.1 (m mol/L) Final Cl 09/02/2023 12:56:52 101 98-107 (mm ol/L) Final CO2 09/02/2023 12:56:52 22 22-32 (mmo l/L) Final Anion gap 09/02/2023 12:56:52 14 7-15 (mmol /L) Final Glucose 09/02/2023 12:56:52 97 70-120 (mg /dL) Final Albumin 09/02/2023 12:56:52 4.4 3.8-5.0 (g /dL) Final AST (Aspartate aminotransferase) 09/02/2023 12:56:52 47 Above high normal 10-35 (U/L) Final Result may be falsely elevat ed due to hemolysis. Alk Phos 09/02/2023 12:56:52 132 Above high normal 35 -130 (U/L) Final Bilirubin, Total 09/02/2023 12:56:52 0.3 <=1 .2 (mg/dL) Final Calcium 09/02/2023 12:56:52 9.4 8.4-10.2 ( mg/dL) Final Protein 09/02/2023 12:56:52 7.3 6.0-8.3 (g /dL) Final ALT (Alanine aminotransferase) 09/02/2023 12:56:52 18 10-35 (U/L) Tony collins Performing Location LAB[facility]ORY [facility] [place] [place] - [facility] [address] Andri[address] Gunn. [facility] [address]
--- OUTSIDE RECORDS SUMMARY | 2023-12-20 21:12 | External Medical Summary | Summary of Care ---
Demographics Address [address] [place] [address] Home Phone Email Address Preferred Language Lithuanian Marital Status Unknown Restoration Affiliation Unknown Race White Ethnic Group Not or Lati no Author Name Unknown Organization [facility] Address [address] [facility] [place] [address] Phone [phone] Care Team Providers Care Acid Tank Liner Name Role Phone Mahogany Valentin MD Primary Care Provide r Reason for Visit * Reason Onset Date Comments Appointment 09/02/2023 Encounter Details Date Type Department Care Team (Late st Contact Info) Description 09/02/2023 Telephone Hematology/Oncology Treatment, [place] [address] [place] [address] Morales Rodriguez MD 200 [place] [address] Appointment Allergies No known active allergiesdocumented as of [...] mRNA, LNP-s, No Pre serve, 2-Dose Series ([employer]) 01/24/2021,06/29/2020,06/08/2020 COVID-19, LNP-s, No Preserve , Adam-sucrose, Ages 12+ (Pfizer) 09/05/2021 COVID-19, MRNA-LNP, 23-24, P F, 30 MCG/0.3 mL, 12 YRS AND ABOVE, IM ([employer]-Comirnat) 01/16/2023 Covid-19, Mrna, Lnp-s, Pf, B ivalent, 30 Mcg, IM, 12 yrs and above ([employer]) 01/09/2022 Pneumococcal Conjugate Vacc, 13 Valent (Prevnar) [...] Telephone Encounter - Katrina Randhawa RN - 09/02/2023 7:[address] Rodriguez: "I received a phone call from [facility] ER, she has new lower extremity DVT and the planning start her on Eliquis. She also has recurrent decision the abdomen, peritoneal metastasis, hypercalcemia. I asked ER to give her 1 dose of Zometa and IV hydration. I would like to see her in the clinic on Saturday at 10:15 a.m.. ( 09/03/2023). She will need CBCD, comprehensive metabolic panel, magnesium level. If she has hypercalcemia, she will need IV hydration. " Scheduling: please call patient to schedule - labs "CBCd, CMP, mag"- can be today at any [facility] lab or at [facility] tomorrow at 9:15am - appt with Dr Rodriguez at 10:15am tomorrow - 2 hour appt tomorrow after follow up "?hydration after appt with Dr Rodriguez- depends on labs" Thanks! documented in this encounter Plan of Treatment Upcoming Encounters Date Type Department Care Team (Late st Contact Info) Description 09/03/2023 10:15 AM EDT Office Visit Hematology/Oncology [facility] [address] [place] [phone] Morales Rodriguez MD 200 [facility] [place] [address] 09/10/2023 10:00 AM EDT Office Visit Family [address] [place] [phone] Jasmyne Ross PA-C [address] [place] [address] [place] [address] 01/07/2024 2:45 PM EDT Office Visit Hematology/Oncology [facility] [address] [place] [phone] Morales Rodriguez MD 200 [facility] [place] [address] 03/16/2024 1:00 PM EST Office Visit Family [address] [place] [phone] Mahogany Valentin MD [address] [place] [address] [place] [address] 03/20/2024 1:30 PM EST Imaging Radiology [address] [place] [address] 04/13/2024 1:00 PM EST Nurse Only Ancillary [address] [place] [address] [place], Nurse Annual Wellness [address] [place] [address] [place] [address] Scheduled Orders Name Type Priority Associated Diagnoses Orde r Schedule CBC WITH WBC DIFFERENTIAL Lab STAT Malignant neoplasm of central portion of left breast in female, estrogen receptor positive (HCC) Expected: 09/02/2023 (Approximate), Expires: 09/01/2024 COMPREHENSIVE METABOLIC PANEL Lab STAT Malignant neoplasm of central portion of left breast in female, estrogen receptor positive (HCC) Expected: 09/02/2023 (Approximate), Expires: 09/01/2024 MAGNESIUM Lab STAT Malignant neoplasm of central portion of left breast in female, estrogen receptor positive (HCC) Expected: 09/02/2023 (Approximate), Expires: 09/01/2024 Health Maintenance Due Date Last Done Comments [...] this encounter Medical Devices Implanted Type Area Air Tool Operator Device Identifier Shelf Expiration Date Model / Serial / Lot Port Power Mri W/8fr Cath - [id number] Implanted:Qty : 1 on 05/25/2015 by Florence [facility] MD at [facility] Left: Subclavian CR BARD : PERIPHERAL VASCULAR 08/17/2016 [id number] / / [id number] documented as of this encounter Visit Diagnoses Diagnosis Malignant neoplasm of central portion of left breast in female, estrogen receptor positive (HCC)- Primary documented in this encounter Care Teams Acid Tank Liner Relationship Specialty Start Date End Date Mahogany Valentin MD [address] [place] [address] [place] [address] PCP - General Family Medicine 01/23/17 documented as of this encounter
--- OUTSIDE RECORDS SUMMARY | 2023-12-20 21:12 | External Medical Summary | Summary of Care ---
Demographics Address [address] [place] [address] Home Phone Email Address Preferred Language Wolof Marital Status Unknown Church Affiliation Unknown Race White Ethnic Group Not or Lati no Author Name Unknown Organization [facility] Address [address] [place] [address] Phone [phone] Care Team Providers Care Blueberry Grower Name Role Phone Mahogany Valentin MD Primary Care Provide r Reason for Visit * Reason Onset Date Comments MyCode Nonconsent - Not interested at this time 09/10/2023 Encounter Details Date Type Department Care Team (Late st Contact Info) Description 09/10/2023 Orders Only Outcomes Research Department [address] [place], [place] [phone] Jocelynn Canseco CHRA MyCode Nonconsent Documentation Allergies No known active allergiesdocumented as of [...] mRNA, LNP-s, No Pre serve, 2-Dose Series ([employer]) 01/24/2021,06/29/2020,06/08/2020 COVID-19, LNP-s, No Preserve , Adam-sucrose, [...] as of this encounter Progress Notes * Jocelynn Canseco CHRA - 09/10/2023 9:50 AM EDT MyCode Nonconsent Documentation Kianna Raymundo was approached in the clinic regarding participation in the MyCode Project and did not consent. documented in this encounter Plan of Treatment Upcoming Encounters Date Type Department Care Team (Late st Contact Info) Description 09/13/2023 10:15 AM EDT Office Visit Hematology/Oncology [facility] [place] [place] [address] [place], [place] [phone] Morales Rodriguez MD [address] [place] [address] 01/07/2024 2:45 PM EDT Office Visit Hematology/Oncology Pia Zhang [place] [address] [place] [phone] Morales Rodriguez MD [address] [place] [address] 03/16/2024 1:00 PM EST Office Visit Family Medicine [address] [place] [phone] Mahogany Valentin MD [address] [place] [address] [place] [address] 03/20/2024 1:30 PM EST Imaging Radiology [address] [place] [address] 04/13/2024 1:00 PM EST Nurse Only Ancillary [address] [place] [address] [place], Nurse Annual [address] [place] [address] Health Maintenance Due Date Last Done Comments [...] this encounter Medical Devices Implanted Type Area Radiation Safety Officer Device Identifier Shelf Expiration Date Model / Serial / Lot Port Power Mri W/8fr Cath - [id number] Implanted:Qty : 1 on 05/25/2015 by Florence Mayfield MD at OR [facility] Left: Subclavian CR BARD : PERIPHERAL VASCULAR 08/17/2016 [id number] / / [id number] documented as of this encounter Care Teams Blueberry Grower Relationship Specialty Start Date End Date Mahogany Valentni MD [address] [place] [address] [place] [phone] PCP - General Family Medicine 01/23/17 documented as of this encounter
--- NOTE | 2023-12-20 22:03 | History & Physical Report ---
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 Patient states she is having short of breath for last 2 weeks but getting progressively worsened. Walking few steps making her short of breath. Last one week she is also noticed progressively worsening edema lower extremity. Denies any chest pain. No palpitations. No cough. No headache. No dizziness. No fevers. No runny nose or sore throat.. Vision is okay. Appetite not great. Constipated. Denies any blood in the stools. Micturating okay. Ambulates without support. Lives alone but sister lives close by. Acute CHF Presents with shortness of breath and lower extremity edema Chest x-ray showed some congestion Received IV Lasix 40 mg in the ER Will continue with IV Lasix 40 mg daily Will follow echo Daily weights and I's and O's Telemetry Cardiology consult in a.m. for further recommendations Mild elevation troponin Mostly demand ischemia Will follow serial enzymes CHANEL Creatinine 1.5 Recent creatinine worsening as outpatient Will follow repeat labs Nephrology consulted Stage IV metastatic breast cancer Chemo as per heme-onc Hyperlipidemia On statin General anxiety disorder On venlafaxine History of DVT On Eliquis DVT prophylaxis On Eliquis Disposition Telemetry Full code. 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 Patient states she is having short of breath for last 2 weeks but getting progressively worsened. Walking few steps making her short of breath. Last one week she is also noticed progressively worsening edema lower extremity. Denies any chest pain. No palpitations. No cough. No headache. No dizziness. No fevers. No runny nose or sore throat.. Vision is okay. Appetite not great. Constipated. Denies any blood in the stools. Micturating okay. Ambulates without support. Lives alone but sister lives close by. Past medical history. As mentioned above Past surgical history. Breast lesion excision. Biopsies of the left axilla lymph node. Left carpal tunnel surgery. Cataracts. Left partial mastectomy. Left radiation therapy. Social history. . Quit smoking 2015. Smoked half pack a day for 30 years. No alcohol use. No drug use. Family history. Maternal grandmother had diabetes. Mother had diabetes. Hypertension. Lung cancer. Neurological disorder. Father had PA. Sister has diabetes. Allergies Allergy/AdvReac Type Severity Reaction Status Date / Time No Known Allergies Allergy Verified 12/20/23 21:26 Home Medications Medication Instructions Recorded Confirmed Type apixaban 5 mg tablet (Eliquis) 5 mg PO BID #74 tabs 08/30/23 12/20/23 Rx pravastatin 80 mg tablet 80 mg PO HS 08/30/23 12/20/23 History venlafaxine 150 mg 150 mg PO HS 08/30/23 12/20/23 History capsule,extended release 24 hr acetaminophen 325 mg tablet 325 mg PO QID PRN Pain 12/20/23 12/20/23 History (Tylenol) ondansetron HCl 4 mg tablet 4 mg PO Q6 PRN Nausea 12/20/23 12/20/23 History potassium, sodium phosphates 280 1 packet PO QAM 12/20/23 12/20/23 History mg-160 mg-250 mg oral powder packet (Phos-NaK) Past Med/Surg History Problem List (Updated 12/05/17 @ 22:24 by EUDOWEB La) Hypokalemia (Acute) Elevated troponin (Acute) Edema (Acute) Acute CHF (Acute) 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 breast in female, estrogen receptor positive (Chronic 03/16/15) Dyslipidemia (Chronic) Depression (Chronic) Anxiety (Chronic) History of tobacco abuse (Chronic) DVT (deep venous thrombosis) History of carpal tunnel surgery (Chronic) S/P partial mastectomy (Chronic) H/O lymph node biopsy (Chronic) Social History Smoking Status: Former smoker Tobacco Type: Cigarettes Hx Alcohol Use: No Hx Substance Use: No Preferred Language: Lao Bobbin Sorter Required: No Beliefs That Will Affect Care: None Feels Safe at Home: Yes Review of Systems Review of Systems: All systems reviewed & are unremarkable except as noted in HPI & below Physical Exam Physical Exam: General- Not in distress Head- atraumatic Eyes- PERRL. ENT- oropharynx clear Neck- supple, no JVD. Lungs- clear to auscultation no wheezing, mild bibasilar crackles. Heart- regular rhythm; no murmur, no gallop. Abdomen- normal bowel sounds, soft, nontender, no distension. Extremities- b/l lower extremity +2 edema present, no erythema seen Neuro- alert, oriented ; PERRL, no facial palsy; no dysarthria; moves extremities. Skin- warm & dry Results & Data Results & Data Vital Signs (Past 12 Hours) Vital Signs Temp Pulse Pulse Resp BP BP Pulse Ox 12/20/23 21:00 107 H 20 155/78 H 96 12/20/23 19:06 104 H 12/20/23 19:00 100 H 20 129/68 94 12/20/23 18:14 90 22 96 12/20/23 18:13 36.7 C 78 16 138/79 93 O2 Del Method 12/20/23 21:00 Room Air 12/20/23 19:06 12/20/23 19:00 Room Air 12/20/23 18:14 Room Air 12/20/23 18:13 Room Air Diagnostic Findings Laboratory Results WBC 9.30 K/ul (4.8-10.8) 12/20/23 18:20 RBC 3.85 M/uL (4.20-5.40) L 12/20/23 18:20 Hgb 11.2 g/dl (12.0-16.0) L 12/20/23 18:20 Hct 34.1 % (37.0-47.0) L 12/20/23 18:20 MCV 88.6 fL (80.0-100.0) 12/20/23 18:20 MCH 29.1 pg (25.0-34.0) 12/20/23 18:20 MCHC 32.8 g/dL (32.0-36.0) 12/20/23 18:20 RDW Std Deviation 51.8 fL (36.4-46.3) H 12/20/23 18:20 RDW Coeff of Hunter 16.0 % (11.5-14.5) H 12/20/23 18:20 Plt Count 235 K/uL (130-400) 12/20/23 18:20 MPV 10.1 fL (9.4-12.4) 12/20/23 18:20 Immature Gran % (Auto) 0.3 % 12/20/23 18:20 Neut % (Auto) 64.5 % 12/20/23 18:20 Lymph % (Auto) 21.0 % 12/20/23 18:20 [place] % (Auto) 12.5 % 12/20/23 18:20 Eos % (Auto) 1.1 % 12/20/23 18:20 Baso % (Auto) 0.6 % 12/20/23 18:20 Neut # (Auto) 6.00 K/uL (1.40-6.50) 12/20/23 18:20 Lymph # (Auto) 1.95 K/uL (1.20-3.40) 12/20/23 18:20 [place] # (Auto) 1.16 K/uL (0.11-0.59) H 12/20/23 18:20 Eos # (Auto) 0.10 K/uL (0.00-0.50) 12/20/23 18:20 Baso # (Auto) 0.06 K/uL (0.00-0.20) 12/20/23 18:20 Immature Gran # (Auto) 0.03 K/uL (0.01-0.20) 12/20/23 18:20 Sodium 134 mmol/L (136-145) L 12/20/23 18:20 Potassium 3.3 mmol/L (3.5-5.1) L 12/20/23 19:25 Chloride 105 mmol/L (98-107) 12/20/23 18:20 Carbon Dioxide 21 mmol/L (21-32) 12/20/23 18:20 Anion Gap 8 (3-11) 12/20/23 18:20 BUN 20 mg/dl (6-23) 12/20/23 18:20 Creatinine 1.57 mg/dl (0.6-1.2) H 12/20/23 18:20 Est Cr Clr Drug Dosing 29.5 ml/min 12/20/23 18:20 Est GFR ( Amer) 36.7 ml/min 12/20/23 18:20 Est GFR (Non-Af Amer) 31.7 ml/min 12/20/23 18:20 BUN/Creatinine Ratio 12.7 (10-20) 12/20/23 18:20 Glucose 98 mg/dl (70-99(Fasting)) 12/20/23 18:20 Calcium 9.7 mg/dl (8.6-10.3) 12/20/23 18:20 Total Bilirubin 0.3 mg/dl (0.2-1.0) 12/20/23 18:20 AST 60 U/L (13-39) H 12/20/23 19:25 ALT 22 U/L (7-52) 12/20/23 18:20 Alkaline Phosphatase 170 U/L (34-104) H 12/20/23 18:20 Troponin I High Sens 14.3 pg/ml (0-14) H 12/20/23 18:20 Total Protein 7.3 gm/dl (6.0-8.3) 12/20/23 18:20 Albumin 3.8 gm/dl (3.4-5.0) 12/20/23 18:20 Globulin 3.5 gm/dl (2.5-4.0) 12/20/23 18:20 Albumin/Globulin Ratio 1.1 (0.9-2) 12/20/23 18:20 Lipase 48 U/L (11-82) 12/20/23 18:20 Urine Color Yellow 12/20/23 19:06 Urine Appearance Clear (Clear) 12/20/23 19:06 Urine pH 7.5 (4.5-7.5) 12/20/23 19:06 Ur Specific [place] 1.006 (1.000-1.030) 12/20/23 19:06 Urine Protein 2+ (Negative) H 12/20/23 19:06 Urine Glucose (UA) Negative (Negative) 12/20/23 19:06 Urine Ketones Negative (Negative) 12/20/23 19:06 Urine Blood 1+ (Negative) H 12/20/23 19:06 Urine Nitrite Negative (Negative) 12/20/23 19:06 Urine Bilirubin Negative (Negative) 12/20/23 19:06 Urine Urobilinogen Negative (Negative) 12/20/23 19:06 Ur Leukocyte Esterase Negative (Negative) 12/20/23 19:06 Urine WBC (Auto) 0-5 /hpf (0-5) 12/20/23 19:06 Urine RBC (Auto) 0-2 /hpf (0-2) 12/20/23 19:06 U Hyaline Cast (Auto) 0-2 /lpf (0-2) 12/20/23 19:06 U Epithel Cells (Auto) 0-2 /hpf (0-2) 12/20/23 19:06 Urine Bacteria (Auto) None Seen (None Seen) 12/20/23 19:06 Impressions Chest X-Ray 12/20/23 18:14 SINGLE VIEW CHEST CLINICAL HISTORY: Atypical chest pain. FINDINGS: An AP, portable, upright chest radiograph is compared to study dated 10/19/2015 and correlated with chest CT dated 08/30/2023. The heart is enlarged noting atherosclerotic calcification of the thoracic aorta. There is prominence of the pulmonary vasculature. Emphysema and chronic interstitial thickening is similar to previous. There are small pleural effusions with dependent scarring/atelectasis. No pneumothorax is seen. The skeletal structures are osteopenic. There is chronic deformity of the right clavicle. Degenerative change is noted in the shoulders and spine. IMPRESSION: 1. Cardiomegaly and emphysema. 2. Prominence of the pulmonary vasculature may represent fluid overload/congestive change. Correlate clinically. 3. Small pleural effusions. ACT 112: Negative or not required by law. Electronically signed by: Maxime Salamanca M.D. 12/20/2023 7:40 PM ECG Additional Comments: ECG. Sinus tachycardia rate of 103. No significant change was found. Code Status & VTE Plan VTE Prophylaxis Plan VTE Prophylaxis will be ordered: Yes
[2023-12-20] MEDS ORDERED: NITROGLYCERIN SL 0.4 MG/TAB TAB SL PRN (22:23)
[2023-12-20] MEDS ORDERED: ACETAMINOPHEN 325 MG TAB PO PRN (22:23)
--- OUTSIDE RECORDS SUMMARY | 2023-12-20 22:30 | External Medical Summary | Summary of Care ---
Demographics Address [address] [place] [address] Home Phone Email Address Preferred Language Cook Islander Marital Status Unknown Shinto Affiliation Unknown Race White Ethnic Group Not or Lati no Author Name Unknown Organization [facility] Address [address] [facility] [place] [address] Phone [phone] Care Team Providers Care Teacher Aide Clerical Name Role Phone Unavailable Primary Care Provider Unavailabl e Reason for Visit * Reason Onset Date Comments Test Results 12/20/2023 Encounter Details Date Type Department Care Team (Late st Contact Info) Description 12/20/2023 Telephone Hematology/Oncology Pia Zhang [place] [address] [place] [address] Morales Rodriguez [facility] [id number] Test Results Allergies No known active allergiesdocumented [...] mRNA, LNP-s, No Pre serve, 2-Dose Series (Sociall) 01/24/2021,06/29/2020,06/08/2020 COVID-19, LNP-s, No Preserve , Adam-sucrose, Ages 12+ (Sociall) 09/05/2021 COVID-19, MRNA-LNP, 23-24, P F, 30 MCG/0.3 mL, 12 YRS AND ABOVE, IM (PFIZER-Comirnaty) 01/16/2023 Covid-19, Mrna, Lnp-s, Pf, B ivalent, 30 Mcg, IM, 12 yrs and above (Sociall) 01/09/2022 PPD 02/25/2003 Pneumococcal Conjugate Vacc, 13 [...] Telephone Encounter - Katrina Randhawa RN - 12/20/2023 3:46 PM EDT Called patient. She states that the swelling started about a week ago, she did review with Dr Danyell Mercedesday when she came in for faslodex. She states it has gotten worse since then. She has had shortness of breath for a "long time", cannot remember when this started, but she feels this slightly worse. After discussion, patient decided she was going to go to [facility]. Dr Rodriguez: KATH * Telephone Encounter - Nilsa Baker LPN [...] 01/07/2024 2:45 PM EDT Office Visit Hematology/Oncology [address] [place] [phone] Morales Rodriguez MD [address] [place] [address] [place] [address] 01/13/2024 10:20 AM EDT Laboratory Laboratory [address] [place] [phone] [facility] [address] [place] [address] 01/14/2024 1:30 PM EDT Hem/Onc Treatment Hematology/Oncology [address], [address] [phone] [place], Chair [address] Hem On[address] [place] [address] 03/16/2024 1:00 PM EST Office Visit Family Medicine [address] [place] [phone] Mahogany Valentin MD [address] [place] [address] [place] [address] 03/20/2024 1:30 PM EST Imaging Radiology [address] [place] [address] 04/13/2024 1:00 PM EST Nurse Only Ancillary [address] [place] [address] [place], Nurse [address] [place] [id number] Health Maintenance Due Date Last Done Comments [...] this encounter Medical Devices Implanted Type Area Online [employer] Fitness Coach Device Identifier Shelf Expiration Date Model / Serial / Lot Port Power Mri W/8fr Cath - [id number] Implanted:Qty : 1 on 05/25/2015 by Florence Mayfield MD at OR [facility] Left: Subclavian CR BARD : PERIPHERAL VASCULAR 08/17/2016 [id number] / / [id number] documented as of this encounter
--- OUTSIDE RECORDS SUMMARY | 2023-12-20 22:30 | External Medical Summary | Summary of Care ---
Demographics Address [address] [place] [address] Home Phone Email Address Preferred Language Bahraini Marital Status Unknown Jewish Affiliation Unknown Race White Ethnic Group Not or Lati no Author Name Unknown Organization [facility] Address [address] [facility] [place] [address] Phone [phone] Care Team Providers Care Systems Accountant Name Role Phone Unavailable Primary Care Provider Unavailabl e Reason for Visit * Reason Onset Date Comments Test Results 12/20/2023 Encounter Details Date Type Department Care Team (Late st Contact Info) Description 12/20/2023 Telephone Hematology/Oncology Pia Zhang [place] [address] [facility] [place] [address] Morales Rodriguez MD [address] [facility] [address] Test Results Allergies No known active allergiesdocumented [...] mRNA, LNP-s, No Pre serve, 2-Dose Series ([employer]) 01/24/2021,06/29/2020,06/08/2020 COVID-19, LNP-s, No Preserve , Adam-sucrose, Ages 12+ ([employer]) 09/05/2021 COVID-19, MRNA-LNP, 23-24, P F, 30 MCG/0.3 mL, 12 YRS AND ABOVE, IM (PFIZER-Comirnaty) 01/16/2023 Covid-19, Mrna, Lnp-s, Pf, B ivalent, 30 Mcg, IM, 12 yrs and above ([employer]) 01/09/2022 Pneumococcal Conjugate Vacc, 13 Valent (Prevnar) [...] State Charity Maloney [address] [place] [phone] Morales Rodriguez MD [address] [place] [address] 01/13/2024 10:20 AM EDT Laboratory Laboratory [address] [place] [phone] [place], Lab [address] [place] [address] 01/14/2024 1:30 PM EDT Hem/Onc Treatment Hematology/Oncology Treatment, [place] [address] [place] [phone] Leatha, Chair 5 Hem Onc [address] [address] [place] [address] 03/16/2024 1:00 PM EST Office Visit Family Medicine [address] [place] [phone] Mahogany Valentin MD [address] [place] [address] [place] [address] 03/20/2024 1:30 PM EST Imaging Radiology [address] [place] [address] 04/13/2024 1:00 PM EST Nurse Only Ancillary [address] [place] [address] [place], Nurse Annual [address] [place] [address] Health Maintenance Due Date Last Done Comments [...] this encounter Medical Devices Implanted Type Area Cargo Broker Device Identifier Shelf Expiration Date Model / Serial / Lot Port Power Mri W/8fr Cath - [id number] Implanted:Qty : 1 on 05/25/2015 by Florence Mayfield MD at OR [facility] Left: Subclavian CR BARD : PERIPHERAL VASCULAR 08/17/2016 [id number] / / [id number] documented as of this encounter
[2023-12-20] MEDS: APIXABAN 5 MG TABLET PO SCH (23:11)
[2023-12-21] MEDS: VENLAFAXINE HCL XR 150 MG CAPXR PO STA (00:02)
[2023-12-21] MEDS: PRAVASTATIN SOD 40 MG TAB PO STA (00:02)
[2023-12-21 05:03] LABS: Basophils # (auto) 0.03 K/uL (0.00-0.20); Basophils % (auto) 0.4 %; Eosinophils # (auto) 0.04 K/uL (0.00-0.50); Eosinophils % (auto) 0.5 %; Hematocrit (blood only) 36.6 % (37.0-47.0); Immature Granulocytes # (auto) 0.03 K/uL (0.01-0.20); Immature Granulocytes % (auto) 0.4 %; Lymphocytes # (auto) 1.45 K/uL (1.20-3.40); Lymphocytes % (auto) 17.9 %; Mean Corpuscular Hgb Conc 32.8 g/dL (32.0-36.0); Mean Corpuscular Volume 91.5 fL (80.0-100.0); Mean Platelet Volume 9.7 fL (9.4-12.4); Monocytes # (auto) 0.91 K/uL (0.11-0.59); Monocytes % (auto) 11.2 %; Neutrophils # (auto) 5.64 K/uL (1.40-6.50); Neutrophils % (auto) 69.6 %; Platelet Count 232 K/uL (130-400); RDW Coefficient of Variation 16.5 % (11.5-14.5); RDW Standard Deviation 55.1 fL (36.4-46.3)
[2023-12-21 05:34] LABS: Troponin I High Sensitivity 15.9 pg/ml (0-14)
[2023-12-21 05:48] LABS: Calcium 9.9 mg/dl (8.6-10.3); Potassium 3.4 mmol/L (3.5-5.1)
[2023-12-21 05:54] LABS: BUN Creatinine Ratio 11.8 (10-20); Creatinine Clr Calc Pharmacy 27.4 ml/min; Est GFR (African American) 33.6 ml/min
--- NOTE | 2023-12-21 07:26 | Electrocardiogram Report ---
Test Reason : Blood Pressure : */* mmHG Vent. Rate : 103 BPM Atrial Rate : 103 BPM P-R Int : 168 ms QRS Dur : 74 ms QT Int : 330 ms P-R-T Axes : 77 40 33 degrees QTcB Int : 432 ms Sinus tachycardia Otherwise normal ECG When compared with ECG of 30-Aug-2023 12:17, No significant change was found Confirmed by Taz Vail ([id number]) on 12/21/2023 7:26:16 AM Referred By: REFERRED SELF Confirmed By: Taz Vail
[2023-12-21] MEDS: POT PHOSPHATE MONOBASIC W/ SOD TAB PO SCH (07:59)
[2023-12-21] MEDS: FUROSEMIDE 40 MG/4 ML VIAL IV SCH ×2 (07:59→20:09)
[2023-12-21] MEDS: POTASSIUM CHLORIDE CRTAB 20 MEQ TABCR PO STA (08:04)
--- NOTE | 2023-12-21 09:40 | Cardiology Consultation ---
Date of Consultation December 21, 2023 Assessment & Plan (1) Acute kidney injury: (2) Edema: Plan Acute kidney injury with volume overload, but uncertain at this point that I would label this is CHF. Nephrology input noted and appreciated. I agree with furosemide 40 mg IV twice daily. Supplement potassium. Continue Eliquis. If sinus tachycardia persist, will consider low-dose beta-heraclio as blood pressure allows. History of Present Illness Attending Physician: Mirta Washburn MD History of Present Illness Kianna Raymundo is a seen in cardiology consultation for the request of Dr. Armstrong for the evaluation of shortness of breath with exertion. Patient describes progressive shortness of breath with exertion over 1 week. At present, she is comfortable having received IV furosemide earlier today and last night. Patient has a history of breast carcinoma with recurrent disease involving the peritoneum, retroperitoneum, and L4 vertebral body. Chemotherapy has included Adriamycin, cyclophosphamide, and Taxol with transition to Faslodex , Abemaciclib, Xgeva and anastrozole. In Aug, 2023 she was diagnosed with a left lower extremity DVT prompting initiation of Eliquis with findings of peritoneal carcinomatosis, retroperitoneal mass with bilateral hydronephrosis and hypercalcemia at that time. Allergies Allergy/AdvReac Type Severity Reaction Status Date / Time No Known Allergies Allergy Verified 12/20/23 21:26 Home Medications Medication Instructions Recorded Confirmed Type apixaban 5 mg tablet (Eliquis) 5 mg PO BID #74 tabs 08/30/23 12/20/23 Rx pravastatin 80 mg tablet 80 mg PO HS 08/30/23 12/20/23 History venlafaxine 150 mg 150 mg PO HS 08/30/23 12/20/23 History capsule,extended release 24 hr acetaminophen 325 mg tablet 325 mg PO QID PRN Pain 12/20/23 12/20/23 History (Tylenol) ondansetron HCl 4 mg tablet 4 mg PO Q6 PRN Nausea 12/20/23 12/20/23 History potassium, sodium phosphates 280 1 packet PO QAM 12/20/23 12/20/23 History mg-160 mg-250 mg oral powder packet (Phos-NaK) Patient History Social History Smoking Status: Former smoker Tobacco Type: Cigarettes Hx Alcohol Use: No Hx Substance Use: No Preferred Language: Grenadian Substation Electrician Supervisor Required: No Beliefs That Will Affect Care: None Feels Safe at Home: Yes Review of Systems Review of Systems: All systems reviewed & are unremarkable except as noted in HPI & below Physical Exam Physical Exam: General: no acute distress and stated age Eyes: conjunctiva are pink and non-injected, sclera clear Neck: normal jugular venous pulse, no hepatojugular reflux Chest: normal shape and normal respiratory effort Lungs: clear to auscultation and percussion Cardiac Exam: - regular heart sounds, no murmurs, rubs, or gallops, no jugular venous distention Abdomen: abdomen soft, non-tender, no abnormal masses and no hepatosplenomegaly Musculoskeletal: no gait disturbance, no weakness Extremities: 1+ bilateral lower extremity edema Neuro:awake, conversant, follows commands, no focal motor deficits Psych: appropriate affect and insight. Results & Data Vital Signs (Past 12 Hours) Vital Signs Pulse Pulse Resp BP Pulse Ox O2 Del Method 12/21/23 08:00 106 H 18 133/76 94 Room Air 12/21/23 07:58 90 12/21/23 04:13 97 H 18 147/73 H 96 Room Air 12/21/23 02:41 94 H 18 142/77 H 95 Room Air 12/21/23 01:43 110 H 12/21/23 00:00 92 H 18 142/77 H 97 Room Air 12/21/23 00:00 101 H 20 142/77 H 96 Room Air 12/20/23 23:00 99 H 18 149/78 H 94 Room Air 12/20/23 22:23 99 H 18 94 Room Air Laboratory Results Cardiac Enzymes 12/20/23 12/20/23 12/21/23 Range/Units 18:20 19:25 04:42 AST TNP 60 H Troponin I High Sens 14.3 H 15.9 H (0-14) pg/ml B-Natriuretic Peptide (0-100) pg/ml 12/21/23 Range/Units 05:43 AST Troponin I High Sens (0-14) pg/ml B-Natriuretic Peptide 126 H (0-100) pg/ml Coagulation 12/21/23 Range/Units 05:43 B-Natriuretic Peptide 126 H (0-100) pg/ml CBC 12/20/23 12/21/23 Range/Units 18:20 04:42 WBC 9.30 8.10 (4.8-10.8) K/ul RBC 3.85 L 4.00 L (4.20-5.40) M/uL Hgb 11.2 L 12.0 (12.0-16.0) g/dl Hct 34.1 L 36.6 L (37.0-47.0) % Plt Count 235 232 (130-400) K/uL Neut # (Auto) 6.00 5.64 (1.40-6.50) K/uL Lymph # (Auto) 1.95 1.45 (1.20-3.40) K/uL [place] # (Auto) 1.16 H 0.91 H (0.11-0.59) K/uL Eos # (Auto) 0.10 0.04 (0.00-0.50) K/uL Baso # (Auto) 0.06 0.03 (0.00-0.20) K/uL Comprehensive Metabolic Panel 12/20/23 12/20/23 12/21/23 Range/Units 18:20 19:25 04:42 Sodium 134 L 136 (136-145) mmol/L Potassium TNP 3.3 L 3.4 L Chloride 105 107 (98-107) mmol/L Carbon Dioxide 21 17 L (21-32) mmol/L BUN 20 20 (6-23) mg/dl Creatinine 1.57 H 1.69 H (0.6-1.2) mg/dl Glucose 98 105 H (70-99(Fasting)) mg/dl Calcium 9.7 9.9 (8.6-10.3) mg/dl AST TNP 60 H ALT 22 (7-52) U/L Alkaline Phosphatase 170 H (34-104) U/L Total Protein 7.3 (6.0-8.3) gm/dl Albumin 3.8 (3.4-5.0) gm/dl Intake and Output 12/21/23 12/21/23 12/21/23 06:59 14:59 22:59 Intake Total 250 / 250 Balance 250 / 250 Intake: Oral 250 / 250 Other: # Unmeasured Voids 2 Weight 77.6 kg 63.2 kg Weight Measurement Method Built in Bedscale Standing Scale Patient Weight 12/22/23 06:59 Weight 63.2 kg Diagnostic Findings EKG performed 12/20/2023 and interpret independently: Sinus tachycardia 103 bpm, nonspecific T wave flattening, unchanged compared to Aug, 2023 Transthoracic echocardiogram performed 12/21/2023: Study is technically limited but adequate for the evaluation of the referral indication. Poor acoustic windows noted. Sinus tachycardia with rate ranging from 101 to 105 bpm during echocardiogram. The left ventricular ejection fraction was normal to hyperdynamic with LVEF in the range of 65 to 70%. No pericardial effusion noted. Doppler assessment of left ventricular diastolic function is indeterminate due to the presence of tachycardia with merging of the AT waves. (2) Edema Edema type: unspecified Qualified Code(s): R60.9 - Edema, unspecified
--- NOTE | 2023-12-21 12:40 | Hospitalist Progress Note ---
Date of Service December 21, 2023 Assessment & Plan (1) Acute CHF: Plan: Ms. 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 #Acute heart failure exacerbation, new onset Patient presents with new symptoms of heart failure and evidence of volume overload Admission weight 78kg BNP 126, normal ECHO 2017 EF 60-65% Chest x-ray showed some congestion Received IV Lasix 40 mg in the ER Continue with IV Lasix 40 mg daily Follow ECHO results Daily weights and I's and O's Continue on Telemetry Cardiology consult in a.m. for further recommendations #Mild elevation troponin Mostly demand ischemia Will follow serial enzymes #CHANEL Creatinine 1.5 Recent creatinine worsening as outpatient Will follow repeat labs Nephrology consulted Renal us pending #Mild transaminitis maybe congestive, repeat cmp in am #Stage IV metastatic breast cancer #Hypercalcemia of malignancy #Immunocompromised on chemo Currently on faslodex and zometa Last infusion #Hyperlipidemia On statin #General anxiety disorder On venlafaxine #History of DVT On Eliquis DVT prophylaxis On Eliquis Disposition Telemetry Full code. Intubation only if there is chance of recovery as per patient Admission and Anticipated Discharge Date Admission Date: December 20, 2023 Subjective NAEO Eating on edge of bed and reports feeling well--notes two weeks of initially SOB/COOPER, then the leg swelling over the last week states her SOB seems find right now and she is able to walk to the bathroom with no difficulty Physical Exam Constitutional: WD/WN, vitals as above Respiratory: normal respiratory effort, lungs clear to auscultation Cardiovascular: regular, tachycardic 2+ pitting edema up to knee Gastrointestinal (Abdomen): normal bowel sounds, soft, nontender, no hepatosplenomegaly Results & Data Results & Data Vital Signs (Past 12 Hours) Vital Signs Pulse Pulse Resp BP Pulse Ox O2 Del Method 12/21/23 08:00 106 H 18 133/76 94 Room Air 12/21/23 07:58 90 12/21/23 04:13 97 H 18 147/73 H 96 Room Air 12/21/23 02:41 94 H 18 142/77 H 95 Room Air 12/21/23 01:43 110 H Laboratory Results Short CBC 12/20/23 12/21/23 Range/Units 18:20 04:42 WBC 9.30 8.10 (4.8-10.8) K/ul Hgb 11.2 L 12.0 (12.0-16.0) g/dl Hct 34.1 L 36.6 L (37.0-47.0) % Plt Count 235 232 (130-400) K/uL BMP 12/20/23 12/20/23 12/21/23 18:20 19:25 04:42 Sodium 134 L 136 Potassium TNP 3.3 L 3.4 L Chloride 105 107 Carbon Dioxide 21 17 L BUN 20 20 Creatinine 1.57 H 1.69 H Glucose 98 105 H Calcium 9.7 9.9 Liver Function 12/20/23 12/20/23 Range/Units 18:20 19:25 Total Bilirubin 0.3 (0.2-1.0) mg/dl AST TNP 60 H ALT 22 (7-52) U/L Alkaline Phosphatase 170 H (34-104) U/L Albumin 3.8 (3.4-5.0) gm/dl Urine 12/20/23 Range/Units 19:06 Urine Color Yellow Urine Appearance Clear (Clear) Urine pH 7.5 (4.5-7.5) Ur Specific [place] 1.006 (1.000-1.030) Urine Protein 2+ H (Negative) Urine Glucose (UA) Negative (Negative) Medications Administered Home Medications Medication Instructions Recorded Confirmed Last Taken apixaban 5 mg tablet (Eliquis) 5 mg PO BID #74 tabs 08/30/23 12/20/23 12/20/23 07:00 pravastatin 80 mg tablet 80 mg PO HS 08/30/23 12/20/23 08/29/23 venlafaxine 150 mg 150 mg PO HS 08/30/23 12/20/23 08/29/23 capsule,extended release 24 hr acetaminophen 325 mg tablet 325 mg PO QID PRN Pain 12/20/23 12/20/23 Unknown (Tylenol) ondansetron HCl 4 mg tablet 4 mg PO Q6 PRN Nausea 12/20/23 12/20/23 Unknown potassium, sodium phosphates 280 1 packet PO QAM 12/20/23 12/20/23 Unknown mg-160 mg-250 mg oral powder packet (Phos-NaK) Active Medications Generic Name Dose Route Start Last Admin Trade Name Byronq PRN Reason Stop Dose Admin Apixaban 5 mg 12/20/23 22:23 12/21/23 07:59 Apixaban 5 Mg Tablet PO 01/19/24 22:22 5 mg BID SHAILA Administration Furosemide 40 mg 12/21/23 09:00 12/21/23 07:59 Furosemide 40 Mg/4 Ml Vial IV 01/20/24 08:59 40 mg DAILY SHAILA Administration Potassium Phosphate 1 tab 12/21/23 09:00 12/21/23 07:59 Pot Phosphate Monobasic W/ Sod Tab PO 01/20/24 08:59 1 tab QAM SHAILA Administration (1) Acute CHF Heart failure type: unspecified Qualified Code(s): I50.9 - Heart failure, unspecified
--- NOTE | 2023-12-21 12:46 | Nephrology Consultation ---
Date of Consultation December 21, 2023 Assessment & Plan (1) Acute kidney injury: Previously normal renal fucntion CHANEL 2/ volume overload/ She may have ATN, GN is a possibility given her cancer history, Although lower in the list.-- Get pcr/ACR. - USS to rule out obstruction, - Increase furosemide to 40 mg BID - Replace Mag and K as needed to keep it >2, and >4 - I/O, daily BMP and weight on the same scale. (2) Acute CHF: above/ cardiology on board. (3) Electrolyte abnormality: (4) 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 breast in female, estrogen receptor positive: History of Present Illness Reason for Consultation: Acute Kidney injury Attending Physician: Mirta Washburn MD History of Present Illness 78-year-old female a/w worsening lower extremity edema and shortness of breath. No c/o chest pain, palpitations.Passing urine Ambulates without support.Denies mitch reanl issues in kristie past, no NSAID use. Labs were significant fro Cr of 1.59( previously normal), w/ Hypokalemia( 3.3), and mild hyponatremia and hypomagnesemia(1.6) u/A was postive for blood and protein ( 2+), but Nitrite negative. She was tachycardic w/ HR in late 90's and earlt 100's w/ systolic BP in 140's. 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, chemotherapy induced neuropathy, history of DVT, Allergies Allergy/AdvReac Type Severity Reaction Status Date / Time No Known Allergies Allergy Verified 12/20/23 21:26 Home Medications Medication Instructions Recorded Confirmed Type apixaban 5 mg tablet (Eliquis) 5 mg PO BID #74 tabs 08/30/23 12/20/23 Rx pravastatin 80 mg tablet 80 mg PO HS 08/30/23 12/20/23 History venlafaxine 150 mg 150 mg PO HS 08/30/23 12/20/23 History capsule,extended release 24 hr acetaminophen 325 mg tablet 325 mg PO QID PRN Pain 12/20/23 12/20/23 History (Tylenol) ondansetron HCl 4 mg tablet 4 mg PO Q6 PRN Nausea 12/20/23 12/20/23 History potassium, sodium phosphates 280 1 packet PO QAM 12/20/23 12/20/23 History mg-160 mg-250 mg oral powder packet (Phos-NaK) Patient History Social History Smoking Status: Former smoker Tobacco Type: Cigarettes Hx Alcohol Use: No Hx Substance Use: No Preferred Language: Kiswahili Prototype Fabricator Required: No Beliefs That Will Affect Care: None Feels Safe at Home: Yes Review of Systems 2 Review of Systems: In mild respiratory distress, 2+ edema Physical Exam 2 Physical Exam: General - Comfortable at rest Neck- supple, no JVD. Lungs- clear to auscultation no wheezing, mild bibasilar crackles. Heart- regular rhythm; no murmur, no gallop. Abdomen- normal bowel sounds, soft, nontender, no distension. Extremities- b/l lower extremity +2 edema present, no erythema seen Neuro- alert, oriented Results & Data Vital Signs (Past 12 Hours) Vital Signs Pulse Pulse Resp BP Pulse Ox O2 Del Method 12/21/23 08:00 106 H 18 133/76 94 Room Air 12/21/23 07:58 90 12/21/23 04:13 97 H 18 147/73 H 96 Room Air 12/21/23 02:41 94 H 18 142/77 H 95 Room Air 12/21/23 01:43 110 H Laboratory Results 12/21/23 04:42 12/21/23 04:42 (2) Acute CHF Heart failure type: unspecified Qualified Code(s): I50.9 - Heart failure, unspecified
--- NOTE | 2023-12-21 15:15 | Ultrasound Report ---
RENAL ULTRASOUND CLINICAL HISTORY: Metastatic breast cancer. Admitted w/ CHANEL, evaluate for obstruction. COMPARISON STUDY: CT of the abdomen and pelvis August 30, 2023. TECHNIQUE: Sonography of the kidneys and the urinary bladder was performed. FINDINGS: The right kidney measures 9.9 cm in maximal dimension and the left measures 11.5 cm. Modera te bilateral hydronephrosis is greater on the right. Right hydronephrosis is similar to CT of August 30, 2023. Left hydronephrosis has mildly progressed. The ureteral jets were not visualized. Moderate abd ominal ascites is incidentally noted as well as a left pleural effusion. IMPRESSION: 1. Moderate bilateral hydronephrosis. Right hydronephrosis is similar to CT of August 30, 2023 while lef t hydronephrosis has progressed. 2. Moderate ascites and a left pleural effusion. ACT 112: Negative or not required by law. Electronically signed by: Ten Osullivan M.D. 12/21/2023 3:14 PM
[2023-12-21 18:04] LABS: Creatinine Urine Random 22.2 mg/dl; Protein Creatinine Ratio Urine 3.8 (0-0.2); Total Protein Urine Random 83.8 mg/dl (0-11.9)
[2023-12-21] MEDS: PRAVASTATIN SOD 40 MG TAB PO SCH (20:09)
[2023-12-21] MEDS: VENLAFAXINE HCL XR 150 MG CAPXR PO SCH (20:09)
[2023-12-22 06:54] LABS: Hematocrit (blood only) 32.1 % (37.0-47.0); Hemoglobin 10.8 g/dl (12.0-16.0); Mean Corpuscular Hemoglobin 29.7 pg (25.0-34.0); Mean Corpuscular Hgb Conc 33.6 g/dL (32.0-36.0); Mean Corpuscular Volume 88.2 fL (80.0-100.0); Mean Platelet Volume 9.9 fL (9.4-12.4); Platelet Count 255 K/uL (130-400); RDW Coefficient of Variation 15.9 % (11.5-14.5); RDW Standard Deviation 51.9 fL (36.4-46.3); Red Blood Count 3.64 M/uL (4.20-5.40); White Blood Count 9.08 K/ul (4.8-10.8)
[2023-12-22 07:13] LABS: Albumin Globulin Ratio 1.2 (0.9-2); Albumin Level 3.8 gm/dl (3.4-5.0); BUN Creatinine Ratio 10.7 (10-20); Bilirubin,Total 0.4 mg/dl (0.2-1.0); Calcium 9.6 mg/dl (8.6-10.3); Creatinine Clr Calc Pharmacy 20.1 ml/min; Est GFR (African American) 26.5 ml/min; Est GFR (Non-African American) 22.8 ml/min; Globulin 3.2 gm/dl (2.5-4.0); Phosphorus 2.5 mg/dl (2.5-4.9); Potassium 3.1 mmol/L (3.5-5.1)
[2023-12-22] MEDS: POTASSIUM CHLORIDE CRTAB 20 MEQ TABCR PO SCH (08:16)
[2023-12-22] MEDS: POTASSIUM CHLORIDE / WTR 10 MEQ/100 ML PLCT IV SCH (08:18)
--- NOTE | 2023-12-22 10:40 | Urology Consultation ---
Date of Consultation December 22, 2023 Assessment & Plan (1) Acute kidney injury: (2) Bilateral hydronephrosis: Plan 78-year-old female with metastatic breast cancer and peritoneal carcinomatosis that is suspected to be causing bilateral ureteral obstruction. She is admitted for CHF exacerbation however creatinine has continued to rise. I had a long discussion with her about metastatic obstruction. Given that she has worsening renal function and imaging has showed worsening hydronephrosis, I offered her bilateral stent placement. I explained that this would likely be permanent and require exchanges under anesthesia every 3 months. I also discussed that these could fail in the future or be unable to be placed today and she would require bilateral nephrostomy tubes. After thoughtful discussion, she would like to proceed with this as she is still interested in pursuing all treatments for her medical issues Consent obtained. No need to emile patient as procedure is bilateral NPO. Not safe for surgery from an n.p.o. status until 330 this afternoon so explained we would have to wait until then Ancef to the OR History of Present Illness Attending Physician: Mirta Washburn MD History of Present Illness 78-year-old female who was admitted on 12/20/2023 for CHF exacerbation. She was also noted to have an CHANEL with initial creatinine of 1.5, up from previous value 0.77. This is trended to 2.[address] scans have showed bilateral hydronephrosis as she has peritoneal carcinomatosis from a history of stage IV breast cancer. Renal ultrasound was updated based on nephrology recommendations and that showed bilateral hydronephrosis, with the right being stable and left worsening. Urinalysis was negative. Patient denies any flank pain at this time. She had Cheerios at 730 this morning. Allergies Allergy/AdvReac Type Severity Reaction Status Date / Time No Known Allergies Allergy Verified 12/20/23 21:26 Home Medications Medication Instructions Recorded Confirmed Type apixaban 5 mg tablet (Eliquis) 5 mg PO BID #74 tabs 08/30/23 12/20/23 Rx pravastatin 80 mg tablet 80 mg PO HS 08/30/23 12/20/23 History venlafaxine 150 mg 150 mg PO HS 08/30/23 12/20/23 History capsule,extended release 24 hr acetaminophen 325 mg tablet 325 mg PO QID PRN Pain 12/20/23 12/20/23 History (Tylenol) ondansetron HCl 4 mg tablet 4 mg PO Q6 PRN Nausea 12/20/23 12/20/23 History potassium, sodium phosphates 280 1 packet PO QAM 12/20/23 12/20/23 History mg-160 mg-250 mg oral powder packet (Phos-NaK) Patient History Social History Smoking Status: Former smoker Tobacco Type: Cigarettes Hx Alcohol Use: No Hx Substance Use: No Preferred Language: Pashto Communication Ability: Effective Screen Printing Inspector Required: No Beliefs That Will Affect Care: None Feels Safe at Home: Yes Assistive Devices: None Physical Exam Physical Exam: General: Alert and oriented, no acute distress HEENT: Normocephalic, mucous membranes moist Pulmonary: Nonlabored respirations Abdomen: Nondistended Extremities: Moves all 4 spontaneously Neuro: No gross deficits Skin: Warm, dry, no rashes noted Results & Data Vital Signs (Past 12 Hours) Vital Signs Temp Pulse Pulse Resp BP Pulse Ox O2 Del Method 12/22/23 07:35 95 H 12/22/23 07:12 36.7 C 102 H 18 112/63 97 Room Air 12/22/23 02:17 36.6 C 91 H 18 121/66 93 Room Air PG Care Time/CCT Total # of Minutes Spent Total Time Spent with Patient: Total time spent is greater than 50% in coordination of care (as documented) at patient's floor/unit and/or counseling patient: Coding Level of Care Code 99490 INT INP/OBS CARE 2/55MIN Diagnoses Acute kidney injury N17.9 Bilateral hydronephrosis N13.30
--- NOTE | 2023-12-22 11:12 | Cardiology Progress Note ---
Date of Service December 22, 2023 Assessment & Plan (1) Acute kidney injury: (2) Edema: Plan Acute kidney injury with volume overload, but uncertain at this point that I would label this is CHF with normal to hyperdynamic left ventricular systolic function noted. Agree with reducing furosemide down to 40 mg 1 time per day. Supplement potassium. Continue Eliquis.-May need to reduce dose down to 2.5 mg twice daily as creatinine has persistently been above 1.5, and weight is very close to the 60 kg level. Start metoprolol succinate 12.5 mg daily given sinus tachycardia and risk of developing atrial arrhythmias. Admission and Anticipated Discharge Date Admission Date: December 20, 2023 Subjective Patient seen in cardiology follow up. Denies worsening shortness of breath. Overall feeling improved. Telemetry reveals sinus rhythm/tachycardia at 101 bpm. Physical Exam Physical Exam: General: no acute distress and stated age Eyes: conjunctiva are pink and non-injected, sclera clear Neck: normal jugular venous pulse, no hepatojugular reflux Chest: normal shape and normal respiratory effort Lungs: clear to auscultation and percussion Cardiac Exam: - regular heart sounds, no murmurs, rubs, or gallops, no jugular venous distention Abdomen: abdomen soft, non-tender, no abnormal masses and no hepatosplenomegaly Musculoskeletal: no gait disturbance, no weakness Extremities: Trace to mild bilateral lower extremity edema noted, improving Neuro:awake, conversant, follows commands, no focal motor deficits Psych: appropriate affect and insight. Results & Data Vital Signs (Past 12 Hours) Vital Signs Temp Pulse Pulse Resp BP Pulse Ox O2 Del Method 12/22/23 11:03 36.7 C 99 H 18 134/82 96 Room Air 12/22/23 07:35 95 H 12/22/23 07:12 36.7 C 102 H 18 112/63 97 Room Air 12/22/23 02:17 36.6 C 91 H 18 121/66 93 Room Air (2) Edema Edema type: unspecified Qualified Code(s): R60.9 - Edema, unspecified
[2023-12-22] MEDS: METOPROLOL SUCC 25MG EXT REL TAB PO SCH (12:32)
--- NOTE | 2023-12-22 12:51 | Hospitalist Progress Note ---
Date of Service December 22, 2023 Assessment & Plan (1) Acute CHF: Plan: Ms. 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 Patient improved symptom love with IV diuersis; however, course complicated by increasing Cr and renal US with concerns for hydronephrosis--iso metastatic carcinoma of breast. Urology consulted this am and plans to place bilateral ureteral stents #Acute heart failure exacerbation, new onset Patient presents with new symptoms of heart failure and evidence of volume overload Admission weight 78kg BNP 126, normal ECHO 2017 EF 60-65% Chest x-ray showed some congestion Received IV Lasix 40 mg in the ER Continue with IV Lasix 40 mg daily ECHO 12/20 suggestive of HFpEF v hyperdynamic function Daily weights and I's and O's Continue on Telemetry Cardiology consult -Start metoprolol 12.5mg XL daily given high risk for atrial arrhythmia -Consider dose reduction of Eliquis contingent on renal function stabilizing -Continue k supplement #Mild elevation troponin Mostly demand ischemia and HFpEF CTM for signs of acs #Sinus tachycardia start metoprolol 12.5mg daily #CHANEL Creatinine 1.5-->2.06 UA with bilateral hydronephrosis, concern for obstructive nephropathy iso metastatic disease Recent creatinine worsening as outpatient Will follow repeat labs Nephrology consulted Urology--plan for stent placement 12/21 #Mild transaminitis maybe congestive, repeat cmp in am #Stage IV metastatic breast cancer #Hypercalcemia of malignancy #Immunocompromised on chemo Currently on faslodex and zometa Last infusion Saturday, CTM #Hyperlipidemia On statin #General anxiety disorder On venlafaxine #History of DVT On Eliquis DVT prophylaxis On Eliquis Disposition Telemetry Full code. Intubation only if there is chance of recovery as per patient Admission and Anticipated Discharge Date Admission Date: December 20, 2023 Subjective NAEO Patient reports feeling seemingly well with improvement of her SOB, she does note some abdominal fullness, but otherwise reports good UOP and otherwise symptoms free She notes conversation with Nephrology and Urology and understands concerns for her renal function Physical Exam Constitutional: WD/WN, vitals as above Respiratory: normal respiratory effort, lungs clear to auscultation Gastrointestinal (Abdomen): normal bowel sounds, soft, nontender, no hepatosplenomegaly Results & Data Results & Data Vital Signs (Past 12 Hours) Vital Signs Temp Pulse Pulse Resp BP Pulse Ox O2 Del Method 12/22/23 11:03 36.7 C 99 H 18 134/82 96 Room Air 12/22/23 07:35 95 H 12/22/23 07:12 36.7 C 102 H 18 112/63 97 Room Air 12/22/23 02:17 36.6 C 91 H 18 121/66 93 Room Air Laboratory Results Short CBC 12/22/23 Range/Units 05:48 WBC 9.08 (4.8-10.8) K/ul Hgb 10.8 L (12.0-16.0) g/dl Hct 32.1 L (37.0-47.0) % Plt Count 255 (130-400) K/uL BMP 12/22/23 05:48 Sodium 139 Potassium 3.1 L Chloride 106 Carbon Dioxide 24 BUN 22 Creatinine 2.06 H D Glucose 106 H Calcium 9.6 Liver Function 12/22/23 Range/Units 05:48 Total Bilirubin 0.4 (0.2-1.0) mg/dl AST 59 H (13-39) U/L ALT 21 (7-52) U/L Alkaline Phosphatase 164 H (34-104) U/L Albumin 3.8 (3.4-5.0) gm/dl Medications Administered Home Medications Medication Instructions Recorded Confirmed Last Taken apixaban 5 mg tablet (Eliquis) 5 mg PO BID #74 tabs 08/30/23 12/20/23 12/20/23 07:00 pravastatin 80 mg tablet 80 mg PO HS 08/30/23 12/20/23 08/29/23 venlafaxine 150 mg 150 mg PO HS 08/30/23 12/20/23 08/29/23 capsule,extended release 24 hr acetaminophen 325 mg tablet 325 mg PO QID PRN Pain 12/20/23 12/20/23 Unknown (Tylenol) ondansetron HCl 4 mg tablet 4 mg PO Q6 PRN Nausea 12/20/23 12/20/23 Unknown potassium, sodium phosphates 280 1 packet PO QAM 12/20/23 12/20/23 Unknown mg-160 mg-250 mg oral powder packet (Phos-NaK) Active Medications Generic Name Dose Route Start Last Admin Trade Name Annetta PRN Reason Stop Dose Admin Apixaban 5 mg 12/20/23 22:23 12/22/23 08:17 Apixaban 5 Mg Tablet PO 01/19/24 22:22 5 mg BID SHAILA Administration Metoprolol Succinate 12.5 mg 12/22/23 11:15 12/22/23 12:32 Metoprolol Succ 25mg Ext Rel Tab PO 01/21/24 11:14 12.5 mg QAM SHAILA Administration Potassium Chloride 40 meq 12/22/23 09:00 12/22/23 08:16 Potassium Chloride Crtab 20 Meq Tabcr PO 01/21/24 08:59 40 meq BID SHAILA Administration Potassium Phosphate 1 tab 12/21/23 09:00 12/22/23 08:17 Pot Phosphate Monobasic W/ Sod Tab PO 01/20/24 08:59 1 tab QAM SHAILA Administration Pravastatin Sodium 80 mg 12/21/23 21:00 12/21/23 20:09 Pravastatin Sod 40 Mg Tab PO 01/20/24 20:59 80 mg HS SHAILA Administration Venlafaxine HCl 150 mg 12/21/23 21:00 12/21/23 20:09 Venlafaxine Hcl Xr 150 Mg Capxr PO 01/20/24 20:59 150 mg HS SHAILA Administration (1) Acute CHF Heart failure type: unspecified Qualified Code(s): I50.9 - Heart failure, unspecified
[2023-12-22] MEDS ORDERED: ONDANSETRON INJ 2 MG/ML 2 ML VIAL IV PRN (13:16)
[2023-12-22] MEDS ORDERED: ATROPINE SULFATE 0.1 MG/ML 10ML SYR IV PRN (13:16)
[2023-12-22] MEDS ORDERED: ePHEDrine sulfate 50 MG/ML AMP IV PRN (13:16)
[2023-12-22] MEDS ORDERED: fentaNYL citrate PF 100 MCG/2 ML VIAL IV PRN (13:16)
[2023-12-22] MEDS ORDERED: LIDOCAINE 2% 2 ML VIAL/AMP(20MG/ML) INFIL ONE (13:24)
[2023-12-22] MEDS ORDERED: PROPOFOL IV EMULSION 10 MG/ML 20 ML VIAL IV ONE (13:24)
[2023-12-22] MEDS ORDERED: fentaNYL citrate PF 100 MCG/2 ML VIAL ONE (13:25)
--- NOTE | 2023-12-22 13:30 | Anesthesiology Consultation ---
Date of Service December 22, 2023 Assessment & Plan Chart Review Chart Review: Acceptable Risk for Surgery and Patient NOT seen in Pre Admission Testing Consults Requested none ASA ASA4 Proposed Anesthesia Anesthesia Type: MAC Risk / Benefits Reviewed With: PT / POA / Parent / Guardian, Accepts Plan and Informed Consent Obtained History Surgery Operation Date: 12/22/23 13:30 Proposed Procedures p Ureteral Stent Insertion/Removal - Curly Brar MD Height/Weight Height: 5 ft 2 in Weight: 61.689 kg Allergies Allergy/AdvReac Type Severity Reaction Status Date / Time No Known Allergies Allergy Verified 12/20/23 21:26 Medications Home Medications Medication Instructions Recorded Confirmed Last Taken apixaban 5 mg tablet (Eliquis) 5 mg PO BID #74 tabs 08/30/23 12/20/23 12/20/23 07:00 pravastatin 80 mg tablet 80 mg PO HS 08/30/23 12/20/23 08/29/23 venlafaxine 150 mg 150 mg PO HS 08/30/23 12/20/23 08/29/23 capsule,extended release 24 hr acetaminophen 325 mg tablet 325 mg PO QID PRN Pain 12/20/23 12/20/23 Unknown (Tylenol) ondansetron HCl 4 mg tablet 4 mg PO Q6 PRN Nausea 12/20/23 12/20/23 Unknown potassium, sodium phosphates 280 1 packet PO QAM 12/20/23 12/20/23 Unknown mg-160 mg-250 mg oral powder packet (Phos-NaK) Active Medications Generic Name Dose Route Start Last Admin Trade Name Freq PRN Reason Stop Dose Admin Apixaban 5 mg 12/20/23 22:23 12/22/23 08:17 Apixaban 5 Mg Tablet PO 01/19/24 22:22 5 mg BID SHAILA Administration Metoprolol Succinate 12.5 mg 12/22/23 11:15 12/22/23 12:32 Metoprolol Succ 25mg Ext Rel Tab PO 01/21/24 11:14 12.5 mg QAM SHAILA Administration Potassium Chloride 40 meq 12/22/23 09:00 12/22/23 08:16 Potassium Chloride Crtab 20 Meq Tabcr PO 01/21/24 08:59 40 meq BID SHAILA Administration Potassium Phosphate 1 tab 12/21/23 09:00 12/22/23 08:17 Pot Phosphate Monobasic W/ Sod Tab PO 01/20/24 08:59 1 tab QAM SHAILA Administration Pravastatin Sodium 80 mg 12/21/23 21:00 12/21/23 20:09 Pravastatin Sod 40 Mg Tab PO 01/20/24 20:59 80 mg HS SHAILA Administration Venlafaxine HCl 150 mg 12/21/23 21:00 12/21/23 20:09 Venlafaxine Hcl Xr 150 Mg Capxr PO 01/20/24 20:59 150 mg HS SHAILA Administration NPO Date Last Intake of Fluids: 12/22/23 Time Last Intake of Fluids: 12:00 Date Last Intake of Solids: 12/22/23 Time Last Intake of Solids: 07:30 Exercise / Class Metabolic Activity II 4-5 Yardwork/Stairs/Walk up hill Past Anesthesia History No Hx of Anesthesia Complications and No Family Hx of Anesthesia Complications History of PONV No Hx of PONV and No Hx of Motion Sickness Social History Smoking Status: Former smoker Hx Alcohol Use: No Hx Substance Use: No Physical Exam Vital Signs Last Vital Signs Temp 36.7 C 12/22/23 11:03 Pulse 99 H 12/22/23 11:03 Resp 18 12/22/23 11:03 BP 134/82 12/22/23 11:03 Pulse Ox 96 12/22/23 11:03 O2 Del Method Room Air 12/22/23 11:03 ENMT Mouth: no dentition abnormality Thyromental Distance: > or= 3.5 Finger Breadths Mallampati Class: II Neck normal visual inspection Respiratory normal respiratory effort Auscultation: lungs clear to auscultation bilaterally Cardiovascular Rate/Rhythm: regular rate and regular rhythm Psychiatric Orientation: alert Testing Laboratory Results 12/22/23 05:48 12/22/23 05:48 Urine Color Yellow 12/20/23 19:06 Urine Appearance Clear (Clear) 12/20/23 19:06 Urine pH 7.5 (4.5-7.5) 12/20/23 19:06 Ur Specific [place] 1.006 (1.000-1.030) 12/20/23 19:06 Urine Protein 2+ (Negative) H 12/20/23 19:06 Urine Glucose (UA) Negative (Negative) 12/20/23 19:06 Urine Ketones Negative (Negative) 12/20/23 19:06 Urine Nitrite Negative (Negative) 12/20/23 19:06 Ur Leukocyte Esterase Negative (Negative) 12/20/23 19:06 Urine WBC (Auto) 0-5 /hpf (0-5) 12/20/23 19:06 Urine RBC (Auto) 0-2 /hpf (0-2) 12/20/23 19:06 U Hyaline Cast (Auto) 0-2 /lpf (0-2) 12/20/23 19:06 U Epithel Cells (Auto) 0-2 /hpf (0-2) 12/20/23 19:06 Urine Bacteria (Auto) None Seen (None Seen) 12/20/23 19:06
[2023-12-22] MEDS: ceFAZolin 2000MG 2,000 MG/15 ML SYR IV ONE (13:45)
--- NOTE | 2023-12-22 13:47 | Nephrology Progress Note ---
Date of Service December 22, 2023 Assessment & Plan (1) Acute kidney injury: Plan: Previously normal renal fucntion CHANEL 2/ obstructive uropathy,GN is a possibility given her cancer history, Although lower in the list - her renal functions continue to worsen, although her renal output is good. with ultrasound scan showing worsening of the hydronephrosis. - - seen by Urology and is due for stent placement today/ tomorrow ,decrease furosemide to 40 mg once daily - Replace Mag and K as needed to keep it >2, and >4 - I/O, daily BMP and weight on the same scale. (2) Acute CHF: Plan: above/ cardiology on board. (3) Electrolyte abnormality: (4) 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 breast in female, estrogen receptor positive: Admission and Anticipated Discharge Date Admission Date: December 20, 2023 Subjective Feels Comfortable with improvement of her SOB, she does note some abdominal fullness, but otherwise reports good UOP and otherwise symptoms free Review of Systems 2 Review of Systems: 2+ edema NO SOB Physical Exam 2 Physical Exam: General - Comfortable at rest Neck- supple, no JVD. Lungs- clear to auscultation no wheezing, mild bibasilar crackles. Heart- regular rhythm; no murmur, no gallop. Abdomen- normal bowel sounds, soft, nontender, no distension. Extremities- b/l lower extremity +2 edema present, no erythema seen Neuro- alert, oriented Results & Data Vital Signs (Past 12 Hours) Vital Signs Temp Pulse Pulse Resp BP Pulse Ox O2 Del Method 12/22/23 11:03 36.7 C 99 H 18 134/82 96 Room Air 12/22/23 07:35 95 H 12/22/23 07:12 36.7 C 102 H 18 112/63 97 Room Air 12/22/23 02:17 36.6 C 91 H 18 121/66 93 Room Air Laboratory Results 12/22/23 05:48 12/22/23 05:48 (2) Acute CHF Heart failure type: unspecified Qualified Code(s): I50.9 - Heart failure, unspecified
[2023-12-22] MEDS ORDERED: ONDANSETRON INJ 2 MG/ML 2 ML VIAL ONE (13:52)
[2023-12-22] MEDS ORDERED: ceFAZolin 330 MG/ML 1 GM VIAL ONE (14:00)
[2023-12-22] MEDS: DIATRIZOATE MEGLUMINE 30% 100ML VIAL INSTIL PRN (14:05)
--- NOTE | 2023-12-22 14:11 | Operative Report ---
PG Post Operative Report Pre & Post Diagnosis Operation Date: 12/22/23 13:30 Pre-Op Diagnosis: Bilateral hydronephrosis. Post-Op Diagnosis: Bilateral hydronephrosis. I identified the patient and participated in the time-out.: Yes Procedure Operation Date: 12/22/23 13:30 Actual Procedures p Cystoscopy, retrograde pyelogram with radiographic interpretation, Ureteral Stent Insertion bilateral.(Bilateral) - Curly Brar MD Surgeon Curly Brar MD [employer] None Estimated Blood Loss 0 Findings See Below 1. Bladder had several tumors, 2 roughly 1 cm tumors on each lateral wall and some smaller ones on the posterior wall. Unable to biopsy these as patient is on current anticoagulation 2. Bilateral moderate hydronephrosis on retrograde 3. Stent in appropriate position. Some obstruction at mid ureter on the right side but was able to bypass this with a stent 4. Tumors were not causing the obstruction of the ureters Specimens None Drains Bilateral 6 Marshallese by 26 cm ureteral stents Anesthesia Type MAC Complications none Indications 78-year-old female with metastatic breast cancer and bilateral hydronephrosis which has been worsening. Recently noted to have an CHANEL which was worsening as well. Discussed options and patient opted for bilateral stent placement Description of Procedure After informed consent was obtained, the patient was transported operative suite. MAC anesthesia was induced. The patient was placed in dorsolithotomy position prepped and draped in a sterile fashion. They received preoperative Ancef for antibiotic prophylaxis. An appropriate surgical timeout was performed. A 22 Marshallese rigid scope was inserted per urethra into the bladder. Bosch cystoscopy revealed above-noted findings. I turned my attention the right ureteral orifice and intubated this with a 5 Marshallese open-ended catheter. A right retrograde pyelogram was shot which showed moderate hydronephrosis. A sensor wire was advanced into the kidney and confirmed fluoroscopically. A 6 Marshallese by 26 cm right ureteral stent was deployed with a good proximal coil in the renal pelvis and a good distal coil noted in the bladder, confirmed fluoroscopically and under direct visualization, respectively. I turned my attention the left ureteral orifice and intubated this with a 5 Marshallese open-ended catheter. A left retrograde pyelogram was shot which showed moderate left hydronephrosis. A sensor wire was advanced into the kidney and confirmed fluoroscopically. A 6 Marshallese by 26 cm left ureteral stent was deployed with a good proximal coil in the renal pelvis and a good distal coil noted in the bladder. These were confirmed fluoroscopically and under direct visualization, respectively. The bladder was emptied and the scope was removed. This concluded the end of the case. All counts were correct at the end of the case. I was present, scrubbed, and actively participated for the entirety of the procedure. All counts were correct at the end of the case. I was present, scrubbed, and actively participated for the entirety of the procedure. I attest to the content of the Intraoperative Record and any orders documented therein. Any exceptions are noted below.
--- NOTE | 2023-12-22 14:35 | Anesthesiology Progress Note ---
Date of Service December 22, 2023 Anesthesia Post Procedure Vital Signs Vital Signs: Temp Pulse Pulse Resp BP Pulse Ox O2 Del Method 12/22/23 14:13 36.7 C 96 H 19 117/68 96 Oxymask 12/22/23 11:03 36.7 C 99 H 18 134/82 96 Room Air 12/22/23 07:35 95 H 12/22/23 07:12 36.7 C 102 H 18 112/63 97 Room Air 12/22/23 02:17 36.6 C 91 H 18 121/66 93 Room Air 12/21/23 22:28 36.5 C 109 H 18 114/65 94 Room Air 12/21/23 21:54 98 H 12/21/23 19:34 36.9 C 106 H 16 144/97 H 94 Room Air 12/21/23 16:23 114 H O2 Flow Rate 12/22/23 14:13 6 12/22/23 11:03 12/22/23 07:35 12/22/23 07:12 12/22/23 02:17 12/21/23 22:28 12/21/23 21:54 12/21/23 19:34 12/21/23 16:23 Transfer of Care Handoff Completed per policy Notes Mental Status: alert / awake / arousable Patient Amnestic to Procedure: Yes Nausea / Vomiting: adequately controlled Pain: adequately controlled Airway Patency, RR, SpO2: stable & adequate BP & HR: stable & adequate Hydration State: stable & adequate Anesthetic Complications: no major complications apparent
[2023-12-23 07:30] LABS: Hematocrit (blood only) 33.4 % (37.0-47.0); Hemoglobin 10.8 g/dl (12.0-16.0); Mean Corpuscular Hemoglobin 29.4 pg (25.0-34.0); Mean Corpuscular Hgb Conc 32.3 g/dL (32.0-36.0); Mean Platelet Volume 9.8 fL (9.4-12.4); Platelet Count 255 K/uL (130-400); RDW Coefficient of Variation 16.7 % (11.5-14.5); RDW Standard Deviation 55.7 fL (36.4-46.3); Red Blood Count 3.67 M/uL (4.20-5.40); White Blood Count 9.13 K/ul (4.8-10.8)
[2023-12-23 07:53] LABS: Potassium 4.2 mmol/L (3.5-5.1)
[2023-12-23 07:54] LABS: Albumin Globulin Ratio 1.1 (0.9-2); Albumin Level 3.6 gm/dl (3.4-5.0); BUN Creatinine Ratio 9.1 (10-20); Bilirubin,Total 0.4 mg/dl (0.2-1.0); Calcium 9.4 mg/dl (8.6-10.3); Creatinine Clr Calc Pharmacy 17.9 ml/min; Est GFR (Non-African American) 19.9 ml/min; Globulin 3.2 gm/dl (2.5-4.0); Phosphorus 2.4 mg/dl (2.5-4.9); Total Protein 6.8 gm/dl (6.0-8.3)
--- NOTE | 2023-12-23 09:18 | Urology Progress Note ---
Date of Service December 23, 2023 Assessment & Plan (1) Bilateral hydronephrosis: (2) Acute kidney injury: (3) Bladder tumor: Plan 78-year-old female with metastatic breast cancer and peritoneal carcinomatosis that is suspected to be causing bilateral ureteral obstruction. She is admitted for CHF exacerbation however creatinine has continued to rise. She is s/p cystoscopy with bilateral ureteral stent placement on 12/22/23. Afebrile with stable vitals Creatinine has continued to rise and is now 2.31. Suspect there is a component of prerenal or intrinsic causeas obstruction has now been addressed Continue to trend labs. Defer to nephrology for further workup for CHANEL Discussed with patient findings of tumor during cystoscopy and explained I was unable to resect them as she was on active anticoagulation. She would like to think about this. Urology will schedule follow-up as an outpatient to discuss further. She will need stent exchanges in 3 months regardless of what she decides to do with the bladder tumors. Urology to follow peripherally Admission and Anticipated Discharge Date Admission Date: December 20, 2023 Subjective No acute issues overnight. Afebrile with stable vitals. Creatinine has continued to rise. Patient reports no bother from the stents. Physical Exam Physical Exam: General: Alert and oriented, no acute distress HEENT: Normocephalic, mucous membranes moist Pulmonary: Nonlabored respirations Abdomen: Nondistended Extremities: Moves all 4 spontaneously Neuro: No gross deficits Skin: Warm, dry, no rashes noted Results & Data Vital Signs (Past 12 Hours) Vital Signs Temp Pulse Pulse Resp BP Pulse Ox O2 Del Method 12/23/23 07:15 91 H 12/23/23 06:54 37.2 C 96 H 18 115/60 96 Room Air 12/23/23 03:40 36.7 C 89 16 115/64 94 Room Air 12/22/23 23:32 36.5 C 100 H 18 134/67 91 Room Air PG Care Time/CCT Total # of Minutes Spent Total Time Spent with Patient: Total time spent is greater than 50% in coordination of care (as documented) at patient's floor/unit and/or counseling patient: Coding Level of Care Code 28806 SUB INP/OBS CARE 2/35MIN Diagnoses Bilateral hydronephrosis N13.30 Acute kidney injury N17.9 Bladder tumor D49.4
--- NOTE | 2023-12-23 09:52 | Hospitalist Progress Note ---
Date of Service December 23, 2023 Assessment & Plan (1) Acute CHF: Plan: Ms. 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 Patient improved symptom love with IV diuersis; however, course complicated by increasing Cr and renal US with concerns for hydronephrosis--iso metastatic carcinoma of breast. Urology consulted 12/21 and now s/p bilateral ureteral stents. Cystoscopy revealed findings of tumor. Urology unable to resect them given apixaban. Urology will schedule follow-up as an outpatient to discuss further. She will need stent exchanges in 3 months. Cr continues to up trend. Nephrology actively following. #Acute heart failure exacerbation, new onset Patient presents with new symptoms of heart failure and evidence of volume overload Admission weight 78kg BNP 126, normal ECHO 2017 EF 60-65% Chest x-ray showed some congestion Received IV Lasix 40 mg in the ER Continue with IV Lasix 40 mg daily ECHO 12/20 suggestive of HFpEF v hyperdynamic function Daily weights and I's and O's Continue on Telemetry Cardiology consult -Continue metoprolol 12.5mg XL daily given high risk for atrial arrhythmia -Given continued uptrend in renal function, reduced eliquis to 2.5mg BID -Continue k supplement #Mild elevation troponin Mostly demand ischemia and HFpEF CTM for signs of acs #Sinus tachycardia start metoprolol 12.5mg daily #CHANEL #Bilateral hydronephrosis iso malignancy s/p stents 12/21 #Multiple bladder tumors Creatinine 1.5-->2.06 UA with bilateral hydronephrosis, concern for obstructive nephropathy iso metastatic disease Recent creatinine worsening as outpatient Will follow repeat labs Nephrology consulted -Continue IV diuresis Urology:stents placed 12/21, follow up for exchange and possible biopsy of bladder tumor in 3 months #Mild transaminitis maybe congestive, repeat cmp in am #Stage IV metastatic breast cancer #Hypercalcemia of malignancy #Immunocompromised on chemo Currently on faslodex and zometa Last infusion Saturday, CTM #Hyperlipidemia On statin #General anxiety disorder On venlafaxine #History of DVT On Eliquis: dose reduced DVT prophylaxis On Eliquis Disposition Telemetry Full code. Intubation only if there is chance of recovery as per patient Admission and Anticipated Discharge Date Admission Date: December 20, 2023 Subjective NAEo Reports continued good urine output and reduction in BLE edema Denies further SOB or any flank pain/concerns Physical Exam Constitutional: WD/WN, vitals as above Respiratory: normal respiratory effort, lungs clear to auscultation Cardiovascular: tachycardic, no murmur, edema markedly improved now midcalf 1-2+ BLE Results & Data Results & Data Vital Signs (Past 12 Hours) Vital Signs Temp Pulse Pulse Resp BP Pulse Ox O2 Del Method 12/23/23 07:15 91 H 12/23/23 06:54 37.2 C 96 H 18 115/60 96 Room Air 12/23/23 03:40 36.7 C 89 16 115/64 94 Room Air 12/22/23 23:32 36.5 C 100 H 18 134/67 91 Room Air Laboratory Results Short CBC 12/23/23 Range/Units 07:00 WBC 9.13 (4.8-10.8) K/ul Hgb 10.8 L (12.0-16.0) g/dl Hct 33.4 L (37.0-47.0) % Plt Count 255 (130-400) K/uL BMP 12/23/23 07:00 Sodium 138 Potassium 4.2 D Chloride 111 H Carbon Dioxide 19 L BUN 21 Creatinine 2.31 H Glucose 98 Calcium 9.4 Liver Function 12/23/23 Range/Units 07:00 Total Bilirubin 0.4 (0.2-1.0) mg/dl AST 55 H (13-39) U/L ALT 15 (7-52) U/L Alkaline Phosphatase 152 H (34-104) U/L Albumin 3.6 (3.4-5.0) gm/dl Medications Administered Home Medications Medication Instructions Recorded Confirmed Last Taken apixaban 5 mg tablet (Eliquis) 5 mg PO BID #74 tabs 08/30/23 12/20/23 12/20/23 07:00 pravastatin 80 mg tablet 80 mg PO HS 08/30/23 12/20/23 08/29/23 venlafaxine 150 mg 150 mg PO HS 08/30/23 12/20/23 08/29/23 capsule,extended release 24 hr acetaminophen 325 mg tablet 325 mg PO QID PRN Pain 12/20/23 12/20/23 Unknown (Tylenol) ondansetron HCl 4 mg tablet 4 mg PO Q6 PRN Nausea 12/20/23 12/20/23 Unknown potassium, sodium phosphates 280 1 packet PO QAM 12/20/23 12/20/23 Unknown mg-160 mg-250 mg oral powder packet (Phos-NaK) Active Medications Generic Name Dose Route Start Last Admin Trade Name Freq PRN Reason Stop Dose Admin Apixaban 5 mg 12/20/23 22:23 12/23/23 08:15 Apixaban 5 Mg Tablet PO 01/19/24 22:22 5 mg BID SHAILA Administration Diatrizoate Meglumine 100 ml 12/22/23 13:59 12/22/23 14:05 Diatrizoate Meglumine 30% 100ml Vial INSTIL 12/26/23 13:58 6 ml UD PRN Administration Radiology Use Metoprolol Succinate 12.5 mg 12/22/23 11:15 12/23/23 08:15 Metoprolol Succ 25mg Ext Rel Tab PO 01/21/24 11:14 12.5 mg QAM SHAILA Administration Potassium Chloride 40 meq 12/22/23 09:00 12/22/23 19:58 Potassium Chloride Crtab 20 Meq Tabcr PO 01/21/24 08:59 40 meq BID SHAILA Administration Potassium Phosphate 1 tab 12/21/23 09:00 12/22/23 08:17 Pot Phosphate Monobasic W/ Sod Tab PO 01/20/24 08:59 1 tab QAM SHAILA Administration Pravastatin Sodium 80 mg 12/21/23 21:00 12/22/23 19:57 Pravastatin Sod 40 Mg Tab PO 01/20/24 20:59 80 mg HS SHAILA Administration Venlafaxine HCl 150 mg 12/21/23 21:00 12/22/23 19:58 Venlafaxine Hcl Xr 150 Mg Capxr PO 01/20/24 20:59 150 mg HS SHAILA Administration (1) Acute CHF Heart failure type: unspecified Qualified Code(s): I50.9 - Heart failure, unspecified
[2023-12-23] MEDS ORDERED: SODIUM PHOSPHATE 3 MMOL/1 ML INFUSION IV STA (09:55)
[2023-12-23] MEDS: FUROSEMIDE 40 MG/4 ML VIAL IV SCH (10:00)
--- NOTE | 2023-12-23 10:35 | Cardiology Progress Note ---
Date of Service December 23, 2023 Assessment & Plan (1) Acute kidney injury: (2) Edema: (3) Bilateral hydronephrosis: (4) Bladder tumor: Plan Acute kidney injury with volume overload. Echocardiogram performed 12/21/2023, revealing normal to hyperdynamic left ventricular systolic function, LVEF 65 to 70%, no significant valvular disease, no pericardial effusion. Doppler assessment of left ventricular diastolic function indeterminate due to underlying tachycardia Patient found to have bilateral hydronephrosis. Patient with history of breast carcinoma and peritoneal carcinomatosis that is suspected to be causing the bilateral ureteral obstruction. Underwent cystoscopy, bilateral ureteral stent placement 12/22/2023. Patient remains on furosemide 40 mg IV daily Eliquis 2.5 mg twice daily given past history of left lower extremity DVT diagnosed in Aug, 2023 Low-dose metoprolol succinate, 12.5 mg daily given sinus tachycardia and risk for atrial arrhythmias -- As noted, alternative explanation for fluid retention found other than congestive heart failure. -- Cardiology to sign off. Dr Lela wallace on 12/23, call with questions and or concerns. Admission and Anticipated Discharge Date Admission Date: December 20, 2023 Subjective Patient seen in cardiology follow-up. Feeling well. Denies chest discomfort or shortness of breath at rest. Telemetry reveals sinus rhythm and sinus tachycardia in the range of 90 to 110 bpm. Physical Exam Physical Exam: General: no acute distress and stated age Eyes: conjunctiva are pink and non-injected, sclera clear Neck: normal jugular venous pulse, no hepatojugular reflux Chest: normal shape and normal respiratory effort Lungs: clear to auscultation and percussion Cardiac Exam: - regular heart sounds, no murmurs, rubs, or gallops, no jugular venous distention Abdomen: Exam suggest mild ascites Musculoskeletal: no gait disturbance, no weakness Extremities: Trace to mild bilateral lower extremity edema noted, improving Neuro:awake, conversant, follows commands, no focal motor deficits Psych: appropriate affect and insight. Results & Data Vital Signs (Past 12 Hours) Vital Signs Temp Pulse Pulse Resp BP Pulse Ox O2 Del Method 12/23/23 07:15 91 H 12/23/23 06:54 37.2 C 96 H 18 115/60 96 Room Air 12/23/23 03:40 36.7 C 89 16 115/64 94 Room Air 12/22/23 23:32 36.5 C 100 H 18 134/67 91 Room Air Laboratory Results Cardiac Enzymes 12/23/23 Range/Units 07:00 AST 55 H (13-39) U/L CBC 12/23/23 Range/Units 07:00 WBC 9.13 (4.8-10.8) K/ul RBC 3.67 L (4.20-5.40) M/uL Hgb 10.8 L (12.0-16.0) g/dl Hct 33.4 L (37.0-47.0) % Plt Count 255 (130-400) K/uL Comprehensive Metabolic Panel 12/23/23 Range/Units 07:00 Sodium 138 (136-145) mmol/L Potassium 4.2 D (3.5-5.1) mmol/L Chloride 111 H (98-107) mmol/L Carbon Dioxide 19 L (21-32) mmol/L BUN 21 (6-23) mg/dl Creatinine 2.31 H (0.6-1.2) mg/dl Glucose 98 (70-99(Fasting)) mg/dl Calcium 9.4 (8.6-10.3) mg/dl AST 55 H (13-39) U/L ALT 15 (7-52) U/L Alkaline Phosphatase 152 H (34-104) U/L Total Protein 6.8 (6.0-8.3) gm/dl Albumin 3.6 (3.4-5.0) gm/dl Intake and Output 12/22/23 12/23/23 12/23/23 22:59 06:59 14:59 Intake Total 403.333 / 1350.000 200 / 1350.000 Output Total 1400 / 3500 1350 / 3500 Balance -996.667 / -2150.000 -1150 / -2150.000 Intake: IV 153.333 / 400.000 Potassium Chloride / Wtr 10 meq 153.333 / 400.000 In 100 ml @ 100 mls/hr IV Q1H [facility] Rx#:[id number] Oral 250 / 850 200 / 850 Output: Urine 1400 / 3500 1350 / 3500 Other: Weight 61.4 kg Weight Measurement Method Standing Scale (2) Edema Edema type: unspecified Qualified Code(s): R60.9 - Edema, unspecified
[2023-12-23] MEDS: SODIUM PHOSPHATE 15 MMOL in SODIUM CHLORIDE 0.9% 250 ML IV ONE (11:07)
[2023-12-23] MEDS: D5W AND 1/2NSS 1,000 ML IV SCH (11:49)
--- NOTE | 2023-12-23 13:57 | Nephrology Progress Note ---
Date of Service December 23, 2023 Assessment & Plan (1) Acute kidney injury: Plan: Previously normal renal fucntion CHANEL 2/ obstructive uropathy,GN is a possibility given her cancer history, Although lower in the list - she had ureteral stent with cystoscopydone yesterday, urine output is good. however renal functions continue to worsen, - DC furosemide - start on D5 half-normal saline at 80 mL an hour. -Daily BMP - Replace Mag and K as needed to keep it >2, and >4 - I/O, daily BMP and weight on the same scale. (2) Acute CHF: Plan: above/ cardiology on board. (3) Electrolyte abnormality: (4) 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 breast in female, estrogen receptor positive: Admission and Anticipated Discharge Date Admission Date: December 20, 2023 Subjective comfortable, no shortness of breath Review of Systems 2 Review of Systems: NO SOB, comfortable Physical Exam 2 Physical Exam: General - Comfortable at rest Neck- supple, no JVD. Lungs- clear to auscultation no wheezing, mild bibasilar crackles. Heart- regular rhythm; no murmur, no gallop. Abdomen- normal bowel sounds, soft, nontender, no distension. Extremities- b/l lower extremity +1 edema present, no erythema seen Neuro- alert, oriented Results & Data Vital Signs (Past 12 Hours) Vital Signs Temp Pulse Pulse Resp BP Pulse Ox O2 Del Method 12/23/23 11:11 36.4 C L 89 18 121/70 94 Room Air 12/23/23 07:15 91 H 12/23/23 06:54 37.2 C 96 H 18 115/60 96 Room Air 12/23/23 03:40 36.7 C 89 16 115/64 94 Room Air Laboratory Results 12/23/23 07:00 12/23/23 07:00 (2) Acute CHF Heart failure type: unspecified Qualified Code(s): I50.9 - Heart failure, unspecified
[2023-12-23] MEDS: APIXABAN 2.5 MG TAB PO SCH (19:57)
[2023-12-23] MEDS: METOPROLOL SUCC 25MG EXT REL TAB PO SCH (19:58)
--- NOTE | 2023-12-24 07:09 | Hospitalist Progress Note ---
Date of Service December 24, 2023 Assessment & Plan (1) Acute CHF: Plan: Ms. 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 Patient improved symptom love with IV diuersis; however, course complicated by increasing Cr and renal US with concerns for hydronephrosis--iso metastatic carcinoma of breast. Urology consulted 12/21 and now s/p bilateral ureteral stents. Cystoscopy revealed findings of tumor. Urology unable to resect them given apixaban. Urology will schedule follow-up as an outpatient to discuss further. She will need stent exchanges in 3 months. Cr continues to up trend. Nephrology actively following. #Bilateral lower extremity edema, likely secondary to renal failure/obsrtuctive uropathy #Acute heart failure exacerbation, ruled OUT Patient presented with new symptoms of heart failure and evidence of volume overload; however, workup suggests symptoms likely secondary to obstructive uropathy iso malignancy Admission weight 78kg normal ECHO 2017 EF 60-65% Chest x-ray showed some congestion Received IV Lasix 40 mg in the ER Stop lasix ECHO 12/20 with preserved EF Daily weights and I's and O's Continue on Telemetry Cardiology consult -Continue metoprolol 12.5mg XL BID given episode of NSVT and risk of arrythmia -Given continued uptrend in renal function, reduced eliquis to 2.5mg BID -Continue k supplement #Mild elevation troponin Mostly demand ischemia and HFpEF CTM for signs of acs #Sinus tachycardia continue metoprolol 12.5mg bid Episode of NSVT on 12/22 #CHANEL *improving #Bilateral hydronephrosis iso malignancy s/p stents 12/21 #Multiple bladder tumors Creatinine 1.5-->2.06-->2.31, now downtrending slowly UA with bilateral hydronephrosis, concern for obstructive nephropathy iso metastatic disease Will follow repeat labs Urology:stents placed 12/21, follow up for exchange and possible biopsy of bladder tumor in 3 months Nephrology consulted -Stop diuertics -discontinued D51/2NS for D5W to reduce cl- and na load -Continue D5W at 80cc/hr #Mild transaminitis maybe congestive, improved #Stage IV metastatic breast cancer #Hypercalcemia of malignancy #Immunocompromised on chemo Currently on faslodex and zometa Last infusion #Hyperlipidemia On statin #General anxiety disorder On venlafaxine #History of DVT On Eliquis: dose reduced Repeat Venous US with improved DVT burden since 08/30/2023 DVT prophylaxis On Eliquis Disposition Telemetry Full code. Intubation only if there is chance of recovery as per patient Admission and Anticipated Discharge Date Admission Date: December 20, 2023 Subjective NAEO Reports feeling well and at baseline Still with good UOP Physical Exam Constitutional: WD/WN, vitals as above Respiratory: normal respiratory effort, lungs clear to auscultation Gastrointestinal (Abdomen): normal bowel sounds, soft, nontender, no hepatosplenomegaly Results & Data Results & Data Vital Signs (Past 12 Hours) Vital Signs Temp Pulse Pulse Resp BP Pulse Ox O2 Del Method 12/24/23 06:00 108 H 12/24/23 02:34 36.6 C 84 18 118/64 95 Room Air 12/23/23 23:25 36.6 C 87 16 114/52 L 94 Room Air 12/23/23 19:28 36.6 C 101 H 18 113/70 96 Room Air Laboratory Results Short CBC 12/24/23 Range/Units 06:45 WBC 8.16 (4.8-10.8) K/ul Hgb 10.3 L (12.0-16.0) g/dl Hct 32.1 L (37.0-47.0) % Plt Count 233 (130-400) K/uL BMP 12/24/23 06:45 Sodium 136 Potassium 3.5 Chloride 112 H Carbon Dioxide 16 L BUN 21 Creatinine 2.21 H Glucose 158 H Calcium 8.6 Medications Administered Home Medications Medication Instructions Recorded Confirmed Last Taken apixaban 5 mg tablet (Eliquis) 5 mg PO BID #74 tabs 08/30/23 12/20/23 12/20/23 07:00 pravastatin 80 mg tablet 80 mg PO HS 08/30/23 12/20/23 08/29/23 venlafaxine 150 mg 150 mg PO HS 08/30/23 12/20/23 08/29/23 capsule,extended release 24 hr acetaminophen 325 mg tablet 325 mg PO QID PRN Pain 12/20/23 12/20/23 Unknown (Tylenol) ondansetron HCl 4 mg tablet 4 mg PO Q6 PRN Nausea 12/20/23 12/20/23 Unknown potassium, sodium phosphates 280 1 packet PO QAM 12/20/23 12/20/23 Unknown mg-160 mg-250 mg oral powder packet (Phos-NaK) Active Medications Generic Name Dose Route Start Last Admin Trade Name Freq PRN Reason Stop Dose Admin Apixaban 2.5 mg 12/23/23 21:00 12/24/23 08:02 Apixaban 2.5 Mg Tab PO 01/22/24 20:59 2.5 mg BID SHAILA Administration Diatrizoate Meglumine 100 ml 12/22/23 13:59 12/22/23 14:05 Diatrizoate Meglumine 30% 100ml Vial INSTIL 12/26/23 13:58 6 ml UD PRN Administration Radiology Use Dextrose 1,000 mls @ 80 mls/hr 12/24/23 10:15 12/24/23 10:56 D5w IV 01/23/24 10:14 80 mls/hr .[id number] SHAILA Administration Metoprolol Succinate 12.5 mg 12/23/23 21:00 12/24/23 08:03 Metoprolol Succ 25mg Ext Rel Tab PO 01/22/24 20:59 12.5 mg BID SHAILA Administration Potassium Chloride 30 meq 12/24/23 14:00 12/24/23 14:08 Potassium Chloride 10 Meq Tabcr PO 01/23/24 13:59 30 meq TID SHAILA Administration Potassium Phosphate 1 tab 12/21/23 09:00 12/24/23 12:21 Pot Phosphate Monobasic W/ Sod Tab PO 01/20/24 08:59 1 tab QAM SHAILA Administration Pravastatin Sodium 80 mg 12/21/23 21:00 12/23/23 20:00 Pravastatin Sod 40 Mg Tab PO 01/20/24 20:59 80 mg HS SHAILA Administration Venlafaxine HCl 150 mg 12/21/23 21:00 12/23/23 20:01 Venlafaxine Hcl Xr 150 Mg Capxr PO 01/20/24 20:59 150 mg HS SHAILA Administration (1) Acute CHF Heart failure type: unspecified Qualified Code(s): I50.9 - Heart failure, unspecified
[2023-12-24 07:33] LABS: Hematocrit (blood only) 32.1 % (37.0-47.0); Hemoglobin 10.3 g/dl (12.0-16.0); Mean Corpuscular Hemoglobin 29.3 pg (25.0-34.0); Mean Corpuscular Hgb Conc 32.1 g/dL (32.0-36.0); Mean Corpuscular Volume 91.2 fL (80.0-100.0); Platelet Count 233 K/uL (130-400); RDW Coefficient of Variation 16.3 % (11.5-14.5); RDW Standard Deviation 54.2 fL (36.4-46.3); Red Blood Count 3.52 M/uL (4.20-5.40); White Blood Count 8.16 K/ul (4.8-10.8)
[2023-12-24 08:01] LABS: Calcium 8.6 mg/dl (8.6-10.3); Magnesium 1.8 mg/dl (1.7-2.4); Potassium 3.5 mmol/L (3.5-5.1)
[2023-12-24 08:07] LABS: BUN Creatinine Ratio 9.5 (10-20); Creatinine Clr Calc Pharmacy 18.6 ml/min; Est GFR (African American) 24.3 ml/min; Phosphorus 2.8 mg/dl (2.5-4.9)
--- NOTE | 2023-12-24 10:01 | Nephrology Progress Note ---
Date of Service December 24, 2023 Assessment & Plan Admission and Anticipated Discharge Date Admission Date: December 20, 2023 Subjective Assessment & Plan (1) Acute kidney injury: Plan: Previously normal renal fucntion CHANEL 2/ obstructive uropathy - she had ureteral stent with cystoscopy done. urine output is good. however renal functions has not improved promptly on D5 half-normal saline at 80 mL an hour. Daily BMP. In setting Of Cancer sometime b/l ureteric stent is not fully adequate and they maay need b/l perc nephrostomy tube Replace Mag and K as needed to keep it >2, and >4. today they are fine. high Cl and low bicarb level. Will change the fluid to straight d5w to lower ch and na load. I/O, daily BMP and weight on the same scale. (2) Acute CHF: Plan: above/ cardiology on board. lasix currently on hold. (3) Electrolyte abnormality: (4) 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 breast in female, estrogen receptor positive: Subjective comfortable, no shortness of breath. 2800 ml urine. On RA. Review of Systems Review of Systems: NO SOB, comfortable Physical Exam Physical Exam: General - Comfortable at rest Neck- supple, no JVD. Lungs- clear to auscultation no wheezing, mild bibasilar crackles. Heart- regular rhythm; no murmur, no gallop. Abdomen- normal bowel sounds, soft, nontender, no distension. Extremities- b/l lower extremity +1 edema present, no erythema seen Neuro- alert, oriented Results & Data Vital Signs (Past 12 Hours) Vital Signs Temp Pulse Pulse Resp BP Pulse Ox O2 Del Method 12/24/23 09:39 98 H 12/24/23 09:39 Room Air 12/24/23 07:57 36.6 C 85 18 110/67 95 Room Air 12/24/23 06:00 108 H 12/24/23 02:34 36.6 C 84 18 118/64 95 Room Air 12/23/23 23:25 36.6 C 87 16 114/52 L 94 Room Air
[2023-12-24] MEDS: DEXTROSE 5% 1,000 ML IV SCH (10:56)
--- NOTE | 2023-12-24 12:05 | Fluoroscopy Report ---
FL retrograde includes kub CLINICAL HISTORY: CYSTO, STENT PLACEMENTright ureteral stent placement COMPARISON STUDY: CT abdomen and pelvis 08/30/2023 FLUOROSCOPY TIME: 21.8 seconds FLUOROSCOPY IMAGES: 3 EXPOSURE DOSE: 4.21 mGy FINDINGS: Status post placement of bilateral ureteral stents, proximal portions appearing in satisfac tory positioning. The distal portion of the stents were not imaged. IMPRESSION: Fluoroscopic assistance as above. ACT 112: Negative or not required by law. Electronically signed by: Eren Mo M.D. 12/24/2023 12:04 PM
--- NOTE | 2023-12-24 13:03 | Urology Progress Note ---
Date of Service December 24, 2023 Assessment & Plan (1) Bladder tumor: (2) Bilateral hydronephrosis: Plan 78-year-old female with metastatic breast cancer and peritoneal carcinomatosis that is suspected to be causing bilateral ureteral obstruction. She is admitted for CHF exacerbation however creatinine has continued to rise. She is s/p cystoscopy with bilateral ureteral stent placement on 12/22/23. Afebrile with stable vitals Creatinine downtrending slightly today but still increased from stenting. Suspect there is a component of prerenal or intrinsic causeas obstruction has now been addressed Continue to trend labs. Defer to nephrology for further workup for CHANEL Patient would prefer TURBT at time of next stent exchange Urology to sign off. F/U sent. Admission and Anticipated Discharge Date Admission Date: December 20, 2023 Subjective No acute issues overnight. Tolerating stents well. Cr has slightly downtrended. Physical Exam Physical Exam: General: Alert and oriented, no acute distress HEENT: Normocephalic, mucous membranes moist Pulmonary: Nonlabored respirations Abdomen: Nondistended Extremities: Moves all 4 spontaneously Neuro: No gross deficits Skin: Warm, dry, no rashes noted Results & Data Vital Signs (Past 12 Hours) Vital Signs Temp Pulse Pulse Resp BP Pulse Ox O2 Del Method 12/24/23 11:30 36.5 C 79 20 104/62 94 Room Air 12/24/23 09:39 98 H 12/24/23 09:39 Room Air 12/24/23 07:57 36.6 C 85 18 110/67 95 Room Air 12/24/23 06:00 108 H 12/24/23 02:34 36.6 C 84 18 118/64 95 Room Air PG Care Time/CCT Total # of Minutes Spent Total Time Spent with Patient: Total time spent is greater than 50% in coordination of care (as documented) at patient's floor/unit and/or counseling patient: Coding Level of Care Code 93239 SUB INP/OBS CARE 2/35MIN Diagnoses Bladder tumor D49.4 Bilateral hydronephrosis N13.30
[2023-12-24] MEDS: POTASSIUM CHLORIDE 10 MEQ TABCR PO SCH (14:08)
--- NOTE | 2023-12-24 14:12 | Ultrasound Report ---
LEFT LOWER EXTREMITY VENOUS DOPPLER CLINICAL HISTORY: Acute u/l edema and h/o prior DVT COMPARISON STUDY: Bilateral lower extremity venous Doppler ultrasound August 30, 2023. TECHNIQUE: Sonography of the deep venous system of the left lower extremity was performed. Compressi on and augmentation were evaluated. FINDINGS: The left common femoral vein is patent. There is nonocclusive thrombus within the left superficial fe moral vein. The extent of deep venous thrombus has significantly improved since ultrasound August 29. The left popliteal vein is now patent. Left calf veins are patent. IMPRESSION: 1. No evidence of acute deep venous thrombus within the left lower extremity. 2. Small amount of residual nonocclusive deep venous thrombus within the left superficial femoral vei n. Extent of thrombus significantly decreased since ultrasound of August 30, 2023. ACT 112: Negative or not required by law. Electronically signed by: Ten Osullivan M.D. 12/24/2023 2:11 PM
[2023-12-24] MEDS: POT PHOSPHATE MONOBASIC W/ SOD TAB PO SCH (18:09)
[2023-12-24] MEDS: MAGNESIUM CHLORIDE W/CALCIUM 64MG DELAYED REL TAB PO SCH (18:10)
[2023-12-24] MEDS: POLYETHYLENE (MIRALAX) 17 GM PACK PO PRN (20:26)
[2023-12-25 06:52] LABS: Hematocrit (blood only) 33.1 % (37.0-47.0); Hemoglobin 10.9 g/dl (12.0-16.0); Mean Corpuscular Hemoglobin 29.9 pg (25.0-34.0); Mean Corpuscular Hgb Conc 32.9 g/dL (32.0-36.0); Mean Corpuscular Volume 90.7 fL (80.0-100.0); Mean Platelet Volume 10.1 fL (9.4-12.4); Platelet Count 236 K/uL (130-400); RDW Coefficient of Variation 16.3 % (11.5-14.5); RDW Standard Deviation 54.4 fL (36.4-46.3); Red Blood Count 3.65 M/uL (4.20-5.40); White Blood Count 8.44 K/ul (4.8-10.8)
[2023-12-25 07:07] LABS: Calcium 9.1 mg/dl (8.6-10.3); Magnesium 1.9 mg/dl (1.7-2.4); Potassium 4.1 mmol/L (3.5-5.1)
[2023-12-25 07:13] LABS: BUN Creatinine Ratio 10.1 (10-20); Creatinine Clr Calc Pharmacy 19.2 ml/min; Est GFR (African American) 24.8 ml/min; Est GFR (Non-African American) 21.4 ml/min; Phosphorus 3.3 mg/dl (2.5-4.9)
--- NOTE | 2023-12-25 10:01 | Nephrology Progress Note ---
Date of Service December 25, 2023 Assessment & Plan Admission and Anticipated Discharge Date Admission Date: December 20, 2023 Subjective Assessment & Plan (1) Acute kidney injury: Plan: Previously normal renal function CHANEL 2/ obstructive uropathy she had ureteral stent with cystoscopy done. urine output is good. however renal functions has not improved promptly--stalled at 2-2.2 Can d/c Iv fluids at this point. NO lasix though. Quite possible she may have elevated baseline creat going forward. Daily BMP. In setting Of Cancer sometime b/l ureteric stent is not fully adequate and they may need b/l perc nephrostomy tube. so will follow for now. would need another renal US within next few days to a week. Needs f/u with nephrology within 1-2 week. Replace Mag and K as needed . today they are normal range I/O, daily BMP and weight on the same scale. edema only in left---Duplex negative for new DVT but has old DVT there. (2) Acute CHF: Plan: above/ cardiology on board. lasix currently on hold. (3) Electrolyte abnormality: (4) 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 breast in female, estrogen receptor positive: Subjective comfortable, no shortness of breath. 2650 ml urine. On RA. eating and drinking normal amount Review of Systems Review of Systems: NO SOB, comfortable Physical Exam Physical Exam: General - Comfortable at rest Neck- supple, no JVD. Lungs- clear to auscultation no wheezing, mild bibasilar crackles. Heart- regular rhythm; no murmur, no gallop. Abdomen- normal bowel sounds, soft, nontender, no distension. Extremities- left lower extremity +1 edema present, no erythema seen Neuro- alert, oriented Results & Data Vital Signs (Past 12 Hours) Vital Signs Temp Pulse Pulse Resp BP Pulse Ox O2 Del Method 12/25/23 08:20 36.5 C 92 H 20 105/67 97 Room Air 12/25/23 03:29 36.8 C 83 16 107/61 94 Room Air 12/24/23 23:00 84 12/24/23 22:45 36.6 C 87 17 108/53 L 94 Room Air
--- NOTE | 2023-12-25 17:19 | Hospitalist Progress Note ---
Date of Service December 25, 2023 Assessment & Plan (1) Bilateral hydronephrosis: (2) Acute kidney injury: Plan: Per admitting service note with addendum: (1) Acute CHF: Plan: Ms. 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 Patient improved symptom love with IV diuersis; however, course complicated by increasing Cr and renal US with concerns for hydronephrosis--iso metastatic carcinoma of breast. Urology consulted 12/21 and now s/p bilateral ureteral stents. Cystoscopy revealed findings of tumor. Urology unable to resect them given apixaban. Urology will schedule follow-up as an outpatient to discuss further. She will need stent exchanges in 3 months. Cr continues to up trend. Nephrology actively following. #Bilateral lower extremity edema, likely secondary to renal failure/obsrtuctive uropathy #Acute heart failure exacerbation, ruled OUT Patient presented with new symptoms of heart failure and evidence of volume overload; however, workup suggests symptoms likely secondary to obstructive uropathy iso malignancy Admission weight 78kg normal ECHO 2017 EF 60-65% Chest x-ray showed some congestion Received IV Lasix 40 mg in the ER Stop lasix ECHO 12/20 with preserved EF Daily weights and I's and O's Continue on Telemetry Cardiology consult -Continue metoprolol 12.5mg XL BID given episode of NSVT and risk of arrythmia -Given continued uptrend in renal function, reduced eliquis to 2.5mg BID -Continue k supplement 12/24 Creatinine 2.1 today IV fluids DC'd per nephrology Continue to monitor renal function #Mild elevation troponin Mostly demand ischemia and HFpEF CTM for signs of acs #Sinus tachycardia continue metoprolol 12.5mg bid Episode of NSVT on 12/22 #CHANEL *improving #Bilateral hydronephrosis iso malignancy s/p stents 12/21 #Multiple bladder tumors Creatinine 1.5-->2.06-->2.31, now downtrending slowly UA with bilateral hydronephrosis, concern for obstructive nephropathy iso m etastatic disease Will follow repeat labs Urology:stents placed 12/21, follow up for exchange and possible biopsy of bladder tumor in 3 months Nephrology consulted -Stop diuertics -discontinued D51/2NS for D5W to reduce cl- and na load 12/24 Management per above #Mild transaminitis maybe congestive, improved #Stage IV metastatic breast cancer #Hypercalcemia of malignancy #Immunocompromised on chemo Currently on faslodex and zometa Last infusion Saturday, #Hyperlipidemia On statin #General anxiety disorder On venlafaxine #History of DVT On Eliquis: dose reduced Repeat Venous US with improved DVT burden since 08/30/2023 DVT prophylaxis On Eliquis Disposition Telemetry Full code. Intubation only if there is chance of recovery as per patient Admission and Anticipated Discharge Date Admission Date: December 20, 2023 Subjective Follow-up for acute kidney injury, obstructive uropathy, etc. Seen resting in bed, comfortable, sitting up, good spirits States that she feels fine overall Denies problems voiding, abdominal pain No other new symptoms Review of Systems Review of Systems: all noted and negative except for above Physical Exam Physical Exam: General- oriented x 3, not in distress, speaks in sentences with no effort or accessory muscle use Eyes- anicteric Neck- no JVD Lungs- clear breath sounds bilaterally, no rales/wheezes Heart- normal rate, regular rhythm; no murmurs Abdomen- normal bowel sounds, nondistended, soft, nontender Extremities- no pretibial edema, no calf tenderness Neuro- alert, oriented x 3; no gross focal neurologic deficits Skin- warm & dry Results & Data Results & Data Vital Signs (Past 12 Hours) Vital Signs Temp Pulse Pulse Resp BP Pulse Ox O2 Del Method 12/25/23 15:22 36.8 C 99 H 18 101/62 99 Room Air 12/25/23 14:20 83 12/25/23 12:00 36.5 C 97 H 18 99/60 L 98 Room Air 12/25/23 10:15 86 12/25/23 10:15 Room Air 12/25/23 08:20 36.5 C 92 H 20 105/67 97 Room Air all noted and reviewed including below
[2023-12-26 07:27] LABS: Albumin Level 3.4 gm/dl (3.4-5.0); Bilirubin,Total 0.3 mg/dl (0.2-1.0); Calcium 8.9 mg/dl (8.6-10.3); Potassium 4.5 mmol/L (3.5-5.1)
[2023-12-26 07:33] LABS: Albumin Globulin Ratio 1.1 (0.9-2); BUN Creatinine Ratio 11.3 (10-20); Creatinine Clr Calc Pharmacy 23.4 ml/min; Est GFR (African American) 29.9 ml/min; Est GFR (Non-African American) 25.8 ml/min; Globulin 3.1 gm/dl (2.5-4.0); Total Protein 6.5 gm/dl (6.0-8.3)
[2023-12-26] MEDS ORDERED: SODIUM BICARBONATE IV SCH ×2 (09:15→10:00)
[2023-12-26] MEDS ORDERED: DEXTROSE 5% IV SCH ×2 (09:15→10:00)
[2023-12-26 09:56] LABS: Magnesium 1.9 mg/dl (1.7-2.4)
[2023-12-26 10:02] LABS: Phosphorus 3.4 mg/dl (2.5-4.9)
--- NOTE | 2023-12-26 10:10 | Nephrology Progress Note ---
Date of Service December 26, 2023 Assessment & Plan Admission and Anticipated Discharge Date Admission Date: December 20, 2023 Subjective Assessment & Plan (1) Acute kidney injury: Plan: Previously normal renal function CHANEL 2/ obstructive uropathy she had ureteral stent with cystoscopy done. urine output is good. however renal functions has not improved promptly--slowly improving. Quite possible she may have elevated baseline creat going forward. But creat is coming down slowly. In setting Of Cancer sometime b/l ureteric stent is not fully adequate and they may need b/l perc nephrostomy tube. so will follow for now. would need another renal US within next few days to a week. Needs f/u with nephrology within 1-2 week. will do CBC, BMP, mag and Phos on Saturday at her PCP office. Labs to be ordered by nephro RN. based on that will decide how fast we need to see her in nephro clinic Also needs renal US sometime next week--to be ordered by nephro and to be done in [facility] for easy comparison [facility] Daily Slow mag 64-0nce daily for outpt Phos is rising very fast and now 3.4 so no need of Phos supplement for outpt edema only in left---Duplex negative for new DVT but has old DVT there. Bicarb low and Cl high so give 75 meq bicarb in 500 ml d5w prior to discharge (2) Acute CHF: Plan: above/ cardiology on board. lasix currently on hold. (3) Electrolyte abnormality: (4) 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 breast in female, estrogen receptor positive: Subjective comfortable, no shortness of breath. 2650 ml urine. On RA. Eating and drinking normal amount. Review of Systems Review of Systems: NO SOB, comfortable Physical Exam Physical Exam: General - Comfortable at rest Neck- supple, no JVD. Lungs- clear to auscultation no wheezing, mild bibasilar crackles. Heart- regular rhythm; no murmur, no gallop. Abdomen- normal bowel sounds, soft, nontender, no distension. Extremities- left lower extremity +1 edema present, no erythema seen Neuro- alert, oriented Results & Data Vital Signs (Past 12 Hours) Vital Signs Temp Pulse Pulse Resp BP Pulse Ox O2 Del Method 12/26/23 07:36 36.6 C 80 18 125/65 96 Room Air 12/26/23 03:22 36.4 C L 82 16 113/67 95 Room Air 12/25/23 23:46 36.7 C 75 16 116/68 96 Room Air 12/25/23 22:45 91 H
[2023-12-26] MEDS: DEXTROSE 5% IV SCH (10:28)
[2023-12-26] MEDS: SODIUM BICARBONATE IV SCH (10:28)
[2023-12-26 11:50] VITALS: BP 118/58; PULSE 85; RESP 20; TEMP 98.2; O2SAT 97
--- NOTE | 2023-12-26 15:41 | Hospitalist Progress Note ---
Date of Service December 26, 2023 Assessment & Plan (1) Bilateral hydronephrosis: (2) Acute kidney injury: Plan: Per admitting service note with addendum: (1) Acute CHF: Plan: Ms. 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 Patient improved symptom love with IV diuersis; however, course complicated by increasing Cr and renal US with concerns for hydronephrosis--iso metastatic carcinoma of breast. Urology consulted 12/21 and now s/p bilateral ureteral stents. Cystoscopy revealed findings of tumor. Urology unable to resect them given apixaban. Urology will schedule follow-up as an outpatient to discuss further. She will need stent exchanges in 3 months. Cr trended up from 1.5 to 2.3, trended down to 1.8 Nephrology consulted. Will need labs and Renal US next week, ff up with Nephro in 1-2 weeks. #Bilateral lower extremity edema, likely secondary to renal failure/obsrtuctive uropathy #Acute heart failure exacerbation, ruled OUT Patient presented with new symptoms of heart failure and evidence of volume overload; however, workup suggests symptoms likely secondary to obstructive ur opathy iso malignancy Admission weight 78kg normal ECHO 2017 EF 60-65% Chest x-ray showed some congestion Received IV Lasix 40 mg in the ER ECHO 12/20 with preserved EF Cardiology consult -Continue metoprolol 12.5mg XL BID given episode of NSVT and risk of arrythmia -Given continued uptrend in renal function, reduced eliquis to 2.5mg BID -Continue k supplement #Mild elevation troponin Mostly demand ischemia and HFpEF CTM for signs of acs #Sinus tachycardia continue metoprolol 12.5mg bid Episode of NSVT on 12/22 #CHANEL *improving #Bilateral hydronephrosis iso malignancy s/p stents 12/21 #Multiple bladder tumors Creatinine 1.5-->2.06-->2.31, now downtrending slowly UA with bilateral hydronephrosis, concern for obstructive nephropathy iso metastatic disease Urology:stents placed 12/21, follow up for exchange and possible biopsy of bladder tumor in 3 months Nephrology consulted -Stopped diuretics -discontinued D51/2NS for D5W to reduce cl- and na load 12/25 Cr trended up from 1.5 to 2.3, trended down to 1.8 Nephrology consulted. Will need labs and Renal US next week, ff up with Nephro in 1-2 weeks. per Nephro: would need another renal US within next few days to a week. Needs f/u with nephrology within 1-2 week. will do CBC, BMP, mag and Phos on Saturday at her PCP office. Labs to be ordered by nephro RN. based on that will decide how fast we need to see her in nephro clinic Also needs renal US sometime next week--to be ordered by nephro and to be done in [facility] for easy comparison and [facility] Daily Slow mag 64-0nce daily for outpt Phos is rising very fast and now 3.4 so no need of Phos supplement for outpt Edema only in left---Duplex negative for new DVT but has old DVT there. Bicarb low and Cl high so give 75 meq bicarb in 500 ml d5w prior to discharge #Mild transaminitis maybe congestive, improved #Stage IV metastatic breast cancer #Hypercalcemia of malignancy #Immunocompromised on chemo Currently on faslodex and zometa Last infusion Saturday, #Hyperlipidemia On statin #General anxiety disorder On venlafaxine #History of DVT On Eliquis: dose reduced Repeat Venous US with improved DVT burden since 08/30/2023 DVT prophylaxis On Eliquis Disposition d/c home ff up with PCP in 1 week ff up with Nephro in 1-2 weeks ff up with Urology in 1-2 weeks Admission and Anticipated Discharge Date Admission Date: December 20, 2023 Subjective ff up for acute kidney injury, etc seen resting in bed, comfortable in good spirits states she feels much better overall no chest pain, dyspnea, palpitations, dizziness voiding without problems no other symptoms states she is ready for discharge today Review of Systems Review of Systems: all noted and negative except for above Physical Exam Physical Exam: General- oriented x 3, not in distress, speaks in sentences with no effort or accessory muscle use Eyes- anicteric Neck- no JVD Lungs- clear breath sounds bilaterally, no rales/wheezes Heart- normal rate, regular rhythm; no murmurs Abdomen- normal bowel sounds, nondistended, soft, nontender Extremities- no pretibial edema, no calf tenderness Neuro- alert, oriented x 3; no gross focal neurologic deficits Skin- warm & dry Results & Data Results & Data Vital Signs (Past 12 Hours) Vital Signs Temp Pulse Pulse Resp BP Pulse Ox O2 Del Method 12/26/23 12:27 Room Air 12/26/23 11:49 36.8 C 85 20 118/58 L 97 Room Air 12/26/23 07:36 36.6 C 80 18 125/65 96 Room Air 12/26/23 06:43 81 all noted and reviewed including below
--- NOTE | 2023-12-26 15:59 | Discharge Summary ---
Discharge Summary Date of Service December 26, 2023 Principal Dx & Hospital Course #1 = Principal Diagnosis (1) Bilateral hydronephrosis: (2) Acute kidney injury: Per admitting service note with addendum: (1) Acute CHF: Plan: Ms. 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 Patient improved symptom love with IV diuersis; however, course complicated by increasing Cr and renal US with concerns for hydronephrosis--iso metastatic carcinoma of breast. Urology consulted 12/21 and now s/p bilateral ureteral stents. Cystoscopy revealed findings of tumor. Urology unable to resect them given apixaban. Urology will schedule follow-up as an outpatient to discuss further. She will need stent exchanges in 3 months. Cr trended up from 1.5 to 2.3, trended down to 1.8 Nephrology consulted. Will need labs and Renal US next week, ff up with Nephro in 1-2 weeks. #Bilateral lower extremity edema, likely secondary to renal failure/obstructive uropathy #Acute heart failure exacerbation, ruled OUT Patient presented with new symptoms of heart failure and evidence of volume overload; however, workup suggests symptoms likely secondary to obstructive uropathy iso malignancy Admission weight 78kg normal ECHO 2017 EF 60-65% Chest x-ray showed some congestion Received IV Lasix 40 mg in the ER ECHO 12/20 with preserved EF Cardiology consult -Continue metoprolol 12.5mg XL BID given episode of NSVT and risk of arrythmia -Given continued uptrend in renal function, reduced eliquis to 2.5mg BID -Continue k supplement #Mild elevation troponin Mostly demand ischemia and HFpEF CTM for signs of acs #Sinus tachycardia continue metoprolol 12.5mg bid Episode of NSVT on 12/22 #CHANEL *improving #Bilateral hydronephrosis iso malignancy s/p stents 12/21 #Multiple bladder tumors Creatinine 1.5-->2.06-->2.31, now downtrending slowly UA with bilateral hydronephrosis, concern for obstructive nephropathy iso metastatic disease Urology:stents placed 12/21, follow up for exchange and possible biopsy of bladder tumor in 3 months Nephrology consulted -Stopped diuretics -discontinued D51/2NS for D5W to reduce cl- and na load 12/25 Cr trended up from 1.5 to 2.3, trended down to 1.8 Nephrology consulted. Will need labs and Renal US next week, ff up with Nephro in 1-2 weeks. per Nephro: would need another renal US within next few days to a week. Needs f/u with nephrology within 1-2 week. will do CBC, BMP, mag and Phos on Saturday at her PCP office. Labs to be ordered by nephro RN. based on that will decide how fast we need to see her in nephro clinic Also needs renal US sometime next week--to be ordered by nephro and to be done in [facility] for easy comparison and [facility] urology Daily Slow mag 64-0nce daily for outpt Phos is rising very fast and now 3.4 so no need of Phos supplement for outpt Edema only in left---Duplex negative for new DVT but has old DVT there. Bicarb low and Cl high so give 75 meq bicarb in 500 ml d5w prior to discharge #Mild transaminitis maybe congestive, improved #Abnormal Chest xray findings FINDINGS: An AP, portable, upright chest radiograph is compared to study dated 10/19/2015 and correlated with chest CT dated 08/30/2023. The heart is enlarged noting atherosclerotic calcification of the thoracic aorta. There is prominence of the pulmonary vasculature. Emphysema and chronic interstitial thickening is similar to previous. There are small pleural effusions with dependent scarring/atelectasis. No pneumothorax is seen. The skeletal structures are osteopenic. There is chronic deformity of the right clavicle. Degenerative change is noted in the shoulders and spine. Further work up, management, and ff up as outpatient #Stage IV metastatic breast cancer #Hypercalcemia of malignancy #Immunocompromised on chemo Currently on faslodex and zometa Last infusion Saturday, #Hyperlipidemia On statin #General anxiety disorder On venlafaxine #History of DVT On Eliquis: dose reduced Repeat Venous US with improved DVT burden since 08/30/2023 DVT prophylaxis On Eliquis Disposition d/c home ff up with PCP in 1 week ff up with Nephro in 1-2 weeks ff up with Urology in 1-2 weeks Notes For Next Care Provider Medication Changes From Visit New medications: Metoprolol succinate- to prevent abnormal heart rhythm Magnesium supplement K phos supplement discontinued Admission HPI Per Admitting Provider 78-year-old female with past medical history significant for hyperlipidemia, history of hypercalcemia, 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 Patient states she is having short of breath for last 2 weeks but getting progressively worsened. Walking few steps making her short of breath. Last one week she is also noticed progressively worsening edema lower extremity. Denies any chest pain. No palpitations. No cough. No headache. No dizziness. No fevers. No runny nose or sore throat.. Vision is okay. Appetite not great. Constipated. Denies any blood in the stools. Micturating okay. Ambulates without support. Lives alone but sister lives close by. Past medical history. As mentioned above Past surgical history. Breast lesion excision. Biopsies of the left axilla lymph node. Left carpal tunnel surgery. Cataracts. Left partial mastectomy. Left radiation therapy. Social history. . Quit smoking 2015. Smoked half pack a day for 30 years. No alcohol use. No drug use. Family history. Maternal grandmother had diabetes. Mother had diabetes. Hypertension. Lung cancer. Neurological disorder. Father had NV. Sister has diabetes. Admission Exam Per Admitting Provider General- Not in distress Head- atraumatic Eyes- PERRL. ENT- oropharynx clear Neck- supple, no JVD. Lungs- clear to auscultation no wheezing, mild bibasilar crackles. Heart- regular rhythm; no murmur, no gallop. Abdomen- normal bowel sounds, soft, nontender, no distension. Extremities- b/l lower extremity +2 edema present, no erythema seen Neuro- alert, oriented ; PERRL, no facial palsy; no dysarthria; moves extremities. Skin- warm & dry Discharge Exam General- oriented x 3, not in distress, speaks in sentences with no effort or accessory muscle use Eyes- anicteric Neck- no JVD Lungs- clear breath sounds bilaterally, no rales/wheezes Heart- normal rate, regular rhythm; no murmurs Abdomen- normal bowel sounds, nondistended, soft, nontender Extremities- no pretibial edema, no calf tenderness Neuro- alert, oriented x 3; no gross focal neurologic deficits Skin- warm & dry Updated Medication List Medication Instructions Recorded Confirmed Type pravastatin 80 mg tablet 80 mg PO HS 08/30/23 12/20/23 History venlafaxine 150 mg 150 mg PO HS 08/30/23 12/20/23 History capsule,extended release 24 hr acetaminophen 325 mg tablet 325 mg PO QID PRN Pain 12/20/23 12/20/23 History (Tylenol) ondansetron HCl 4 mg tablet 4 mg PO Q6 PRN Nausea 12/20/23 12/20/23 History apixaban 5 mg tablet (Eliquis) 2.5 mg (1/2 x 5 mg) PO BID #74 tabs 12/26/23 12/20/23 Rx magnesium chloride 64 mg 64 mg PO QAM 30 days #30 tabs 12/26/23 Rx (magnesium chloride) tablet,delayed release (Mag 64) metoprolol succinate 25 mg 12.5 mg (1/2 x 25 mg) PO BID 30 12/26/23 Rx tablet,extended release 24 hr days #30 tabs Hospital Stay Data Consultations 12/20/23 20:11 ED Decision to Admit Stat 12/21/23 07:03 Consult Nephrology Routine 12/21/23 08:00 Consult Cardiology Routine 12/22/23 10:09 Consult Urology Routine Procedures Performed Operation Date: 12/22/23 13:30 Actual Procedures p Cystoscopy, retorgrade pyelogram, Ureteral Stent Insertion bilateral.(Bilateral) - Curly Brar MD Diagnostic Imagining Performed 12/21/23 12:56 US Renal Bladder [US renal/blad retro comp] Routine 12/22/23 FL retrograde includes kub Routine 12/24/23 10:34 US venous doppler LE LT Urgent RENAL ULTRASOUND CLINICAL HISTORY: Metastatic breast cancer. Admitted w/ CHANEL, evaluate for obstruction. COMPARISON STUDY: CT of the abdomen and pelvis August 30, 2023. TECHNIQUE: Sonography of the kidneys and the urinary bladder was performed. FINDINGS: The right kidney measures 9.9 cm in maximal dimension and the left measures 11.5 cm. Moderate bilateral hydronephrosis is greater on the right. Right hydronephrosis is similar to CT of August 30, 2023. Left hydronephrosis has mildly progressed. The ureteral jets were not visualized. Moderate abdominal ascites is incidentally noted as well as a left pleural effusion. IMPRESSION: 1. Moderate bilateral hydronephrosis. Right hydronephrosis is similar to CT of August 30, 2023 while left hydronephrosis has progressed. 2. Moderate ascites and a left pleural effusion. ACT 112: Negative or not required by law. LEFT LOWER EXTREMITY VENOUS DOPPLER CLINICAL HISTORY: Acute u/l edema and h/o prior DVT COMPARISON STUDY: Bilateral lower extremity venous Doppler ultrasound August 30, 2023. TECHNIQUE: Sonography of the deep venous system of the left lower extremity was performed. Compression and augmentation were evaluated. FINDINGS: The left common femoral vein is patent. There is nonocclusive thrombus within the left superficial femoral vein. The extent of deep venous thrombus has significantly improved since ultrasound August 30, 2023. The left popliteal vein is now patent. Left calf veins are patent. IMPRESSION: 1. No evidence of acute deep venous thrombus within the left lower extremity. 2. Small amount of residual nonocclusive deep venous thrombus within the left superficial femoral vein. Extent of thrombus significantly decreased since ultrasound of August 30, 2023. ACT 112: Negative or not required by law. Pending Results Patient Have Any Pending Studies at Discharge: No Discharge Instructions Given to Patient (Per Discharging Provider) PLEASE REFER TO YOUR NEW MEDICATION LIST AND FOLLOW INSTRUCTIONS CAREFULLY. YOUR NEW MEDICATIONS INCLUDE: Metoprolol succinate- to prevent abnormal heart rhythm Magnesium supplement DO NOT TAKE MEDICATIONS UNDER THE CLASS OF NSAIDS INCLUDING IBUPROFEN, NAPROXEN, ETC. ALWAYS CONSULT WITH YOUR PHYSICIAN BEFORE STARTING ANY NEW MEDICATION. PLEASE CALL YOUR PRIMARY CARE PHYSICIAN OR RETURN TO THE ER IF WITH WORSENING OF SYMPTOMS, INCLUDING problems with urination, abdominal/flank/back pain, fever/chills, shortness of breath, leg swelling, etc FOLLOW UP WITH PRIMARY CARE PHYSICIAN OUTLINED ABOVE. FOLLOW UP WITH KIDNEY SPECIALIST AND UROLOGIST IN 1-2 WEEKS. Total Time Total Time Spent Total Time Spent (In Minutes): 50 minutes
== END 2023-12-26 17:15 | disposition home or self-care (01) | DRG 660 ==
LOC: ED 17:36 → SUATTDRO 21:30 → EDINP 21:30 → 2E 22:23

== ENCOUNTER 2024-01-06 13:54 | Inpatient (IN) ==
--- NOTE | 2024-01-06 16:21 | XRay Report ---
XR chest 1V not portable HISTORY: Chest pain, nonspecific COMPARISON: Chest 12/20/2023. FINDINGS: No pneumothorax. Trace bilateral pleural effusions are again noted. Mild cardiomegaly and e mphysema, unchanged. There is diffuse interstitial/vascular thickening which is slightly progressed. This favors mild congestive change on the background of chronic interstitial lung disease. No new foc al lung consolidations to suggest a pneumonia. There is an old nonunited distal right clavicle fractu re. Calcifications within the aortic knob. Ureteral stents are partially visualized on this study. IMPRESSION: 1. Cardiomegaly with mild congestive change and trace bilateral pleural effusions. 2. Emphysema again noted. ACT 112: Negative or not required by law. Electronically signed by: Ramsey Hunt M.D. 01/06/2024 4:19 PM
--- NOTE | 2024-01-06 16:30 | Emergency Department Note ---
History of Present Illness General Chief complaint: Leg Weakness, Bilateral Stated complaint: diff ambulating Time Seen by Provider: 01/06/24 16:12 Source: patient, family (Sister who is at the bedside), RN notes reviewed and old records reviewed (Discharge summary from ) Mode of arrival: ambulatory Limitations: no limitations History of Present Illness This patient 78-year-old female who has a complex medical history including CHF and metastatic breast cancer, comes in after having shortness of breath. She says been going on for quite some time she has lower extremity edema which is gotten worse. She was hospitalized a couple weeks ago for CHF and does not believe she is actually on a diuretic. They recently lowered her Eliquis as when she had a stent placed in her bladder they had some bladder tumors they did not want a bleed. She is on no blood in her urine. no dysuria. no blood or melena in her stool. no cough. no fever .she has dyspnea on exertion when she presented to triage apparently O2 sat was 60% she seems comfortable on supplemental oxygen when at rest. Home Medications Medication Instructions Recorded Confirmed Type pravastatin 80 mg tablet 80 mg PO HS 08/30/23 01/06/24 History venlafaxine 150 mg 150 mg PO HS 08/30/23 01/06/24 History capsule,extended release 24 hr acetaminophen 325 mg tablet 325 mg PO QID PRN Pain 12/20/23 01/06/24 History (Tylenol) ondansetron HCl 4 mg tablet 4 mg PO Q6 PRN Nausea 12/20/23 01/06/24 History apixaban 5 mg tablet (Eliquis) 2.5 mg (1/2 x 5 mg) PO BID #74 tabs 12/26/23 01/06/24 Rx magnesium chloride 64 mg 64 mg PO QAM 30 days #30 tabs 12/26/23 01/06/24 Rx (magnesium chloride) tablet,delayed release (Mag 64) metoprolol succinate 25 mg 12.5 mg (1/2 x 25 mg) PO BID 30 12/26/23 01/06/24 Rx tablet,extended release 24 hr days #30 tabs Allergies Allergy/AdvReac Type Severity Reaction Status Date / Time No Known Allergies Allergy Verified 12/20/23 21:26 Past Med/Surg History Problem List (Updated 01/06/24 @ 22:46 by John Hurtado MD) Renal failure (Acute) Metastatic cancer (Acute) SOB (shortness of breath) (Acute) Hypoxemia (Acute) Left leg cellulitis Swelling of both lower extremities Hypercalcemia Acute hyponatremia 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 Peritoneal carcinomatosis Bladder tumor Bilateral hydronephrosis Electrolyte abnormality Acute kidney injury Hypokalemia (Acute) Elevated troponin (Acute) Edema (Acute) Acute CHF (Acute) 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 breast in female, estrogen receptor positive (Chronic 03/16/15) Dyslipidemia (Chronic) Depression (Chronic) Anxiety (Chronic) Medical History History of measles CKD (chronic kidney disease) stage 3, GFR 30-59 ml/min Granuloma annulare DVT (deep venous thrombosis) History of tobacco abuse Surgical History History of cataract surgery H/O lymph node biopsy S/P partial mastectomy History of carpal tunnel surgery Family History Sister Diabetes Grandmother (Maternal) Diabetes Mother Diabetes Lung cancer Father Heart disease Social History Smoking Status: Former smoker Tobacco Type: Cigarettes Hx Alcohol Use: No Hx Substance Use: No Preferred Language: Irish Communication Ability: Effective Air Sampling And Monitoring Required: No Beliefs That Will Affect Care: None Feels Safe at Home: Yes Assistive Devices: None Review of Systems A total of 10 systems reviewed and were otherwise negative Physical Exam Vital Signs Vital Signs - 24 hr 01/06/24 13:59 01/06/24 16:48 01/06/24 16:50 Temperature 36.4 C L Temperature Source Axillary Pulse Rate 92 H 75 74 Pulse Rate from SpO2 Sensor 76 Respiratory Rate 30 H 16 Respiratory Effort / Characteristics Non-Labored Spontaneous Respiratory Depth Normal Blood Pressure 117/66 Blood Pressure Mean 83 Pulse Oximetry 100 Oxygen Delivery Method Nasal Cannula Oxygen Flow Rate 4 Sepsis Recent Fever Within 48 Hours No Sepsis New/Unexplained Change in Mental Status No Sepsis Action Taken by Nursing No Action Required Oxygen Flow Rate - Titration 01/06/24 17:02 01/06/24 17:09 01/06/24 17:30 Temperature Temperature Source Pulse Rate 73 76 Pulse Rate from SpO2 Sensor Respiratory Rate 17 20 Respiratory Effort / Characteristics Respiratory Depth Blood Pressure Blood Pressure Mean Pulse Oximetry 93 Oxygen Delivery Method Room Air Oxygen Flow Rate 4 Sepsis Recent Fever Within 48 Hours Sepsis New/Unexplained Change in Mental Status Sepsis Action Taken by Nursing Oxygen Flow Rate - Titration 4 01/06/24 17:54 01/06/24 18:01 01/06/24 18:09 Temperature Temperature Source Pulse Rate 79 70 Pulse Rate from SpO2 Sensor 77 69 Respiratory Rate 21 23 Respiratory Effort / Characteristics Respiratory Depth Blood Pressure 118/71 Blood Pressure Mean 81 Pulse Oximetry 75 L 90 Oxygen Delivery Method Oxygen Flow Rate Sepsis Recent Fever Within 48 Hours Sepsis New/Unexplained Change in Mental Status Sepsis Action Taken by Nursing Oxygen Flow Rate - Titration General: Well developed well nourished older female who appears comfortable while at rest and on supplemental oxygen in no acute distress. Normal speech HEENT: Normal cephalic atraumatic. Pupils are equal round and reactive to light. Extraocular movements are intact. Oropharynx is pink with moist mucous membranes. No swelling of the mouth lips or tongue. Neck: Supple with a midline trachea. No meningeal signs or stiffness, no JVD or bruits. No Stridor. Chest: Clear to auscultation bilaterally. No wheezes or rhonchi. No increased work of breathing. Heart: Regular rate and rhythm without murmurs or gallops. Abdomen: Soft nontender, nondistended without rebound guarding or rigidity. Extremities: No cyanosis clubbing. She is 1+ pitting edema bilaterally. no calf tenderness or assymetry Spine/Back. Non tender to palpation. No CVA tenderness Skin: Good turgor without rashes. Neurologic exam: Cranial nerves two through 12 are intact. Motor and sensation are intact and symmetrical throughout. Course Administered Medications Apixaban (Apixaban 2.5 Mg Tab) 2.5 mg PO BID SHAILA Stop: 02/05/24 20:59 Last Admin: 01/06/24 21:14 Dose: 2.5 mg Documented By: KHLOE Ceftriaxone Sodium (Rocephin) 2,000 mg in 50 mls @ 100 mls/hr IV Q24H SHAILA Stop: 01/13/24 18:29 Last Infusion: 01/06/24 21:24 Dose: Infused Documented By: Admin: 01/06/24 19:30 Dose: 100 mls/hr Documented By: AY Metoprolol Succinate (Metoprolol Succ 25mg Ext Rel Tab) 12.5 mg PO BID SHAILA Stop: 02/05/24 20:59 Last Admin: 01/06/24 21:10 Dose: 12.5 mg Documented By: AES Ondansetron HCl (Ondansetron Inj 2 Mg/Ml 2 Ml Vial) 4 mg IV Q6H PRN PRN Reason: Nausea Stop: 02/05/24 20:29 Last Admin: 01/06/24 22:24 Dose: 4 mg Documented By: DN Pravastatin Sodium (Pravastatin Sod 40 Mg Tab) 80 mg PO HS SHAILA Stop: 02/05/24 20:59 Last Admin: 01/06/24 21:12 Dose: 80 mg Documented By: AES Venlafaxine HCl (Venlafaxine Hcl Xr 150 Mg Capxr) 150 mg PO HS SHAILA Stop: 02/05/24 20:59 Last Admin: 01/06/24 21:11 Dose: 150 mg Documented By: AES Discontinued Medications Calcitonin [place] (Calcitonin [place] 400 Units/2 Ml) 250 units SQ ONE ONE Stop: 01/06/24 20:31 Last Admin: 01/06/24 21:20 Dose: 250 units Documented By: AES Medical Decision Making Differential Diagnosis CHF, electrolyte or metabolic abnormality, acute coronary syndrome, arrhythmia, complication related to cancer, DVT, PE, anemia, infection Medical Records Attestation: I reviewed the patient's medical records. Home Medications Current Medication List: was personally reviewed by me Laboratory Data Attestation: I reviewed the patient's lab results. 01/06/24 15:52 01/06/24 15:52 Lab Results 01/06/24 01/06/24 01/06/24 Range/Units 15:52 16:47 16:51 WBC 8.54 (4.8-10.8) K/ul RBC 4.27 (4.20-5.40) M/uL Hgb 12.9 (12.0-16.0) g/dl Hct 37.8 (37.0-47.0) % MCV 88.5 (80.0-100.0) fL MCH 30.2 (25.0-34.0) pg MCHC 34.1 (32.0-36.0) g/dL RDW Std Deviation 53.1 H (36.4-46.3) fL RDW Coeff of [place] 16.6 H (11.5-14.5) % Plt Count 261 (130-400) K/uL MPV 10.4 (9.4-12.4) fL Immature Gran % (Auto) 0.6 % Neut % (Auto) 76.9 % Lymph % (Auto) 13.1 % [place] % (Auto) 8.7 % Eos % (Auto) 0.2 % Baso % (Auto) 0.5 % Neut # (Auto) 6.57 H (1.40-6.50) K/uL Lymph # (Auto) 1.12 L (1.20-3.40) K/uL [place] # (Auto) 0.74 H (0.11-0.59) K/uL Eos # (Auto) 0.02 (0.00-0.50) K/uL Baso # (Auto) 0.04 (0.00-0.20) K/uL Immature Gran # (Auto) 0.05 (0.01-0.20) K/uL PT 14.4 H (9.0-12.0) Seconds INR 1.4 H (0.9-1.1) APTT 34 H (21-31) Seconds PTT Ratio 1.3 Sodium 126 L (136-145) mmol/L Potassium 4.0 (3.5-5.1) mmol/L Chloride 101 (98-107) mmol/L Carbon Dioxide 12 L (21-32) mmol/L Anion Gap 13 H (3-11) BUN 42 H (6-23) mg/dl Creatinine 2.77 H (0.6-1.2) mg/dl Est Cr Clr Drug Dosing Not Reportable Est GFR ( Amer) 18.5 ml/min Est GFR (Non-Af Amer) 16.0 ml/min BUN/Creatinine Ratio 15.2 (10-20) Glucose 80 (70-99(Fasting)) mg/dl Calcium 11.4 H (8.6-10.3) mg/dl Total Bilirubin 0.6 (0.2-1.0) mg/dl AST 94 H (13-39) U/L ALT 28 (7-52) U/L Alkaline Phosphatase 241 H (34-104) U/L Troponin I High Sens 16.9 H (0-14) pg/ml B-Natriuretic Peptide 162 H (0-100) pg/ml Total Protein 7.5 (6.0-8.3) gm/dl Albumin 4.0 (3.4-5.0) gm/dl Globulin 3.5 (2.5-4.0) gm/dl Albumin/Globulin Ratio 1.1 (0.9-2) Adenovirus (PCR) Not Detected (NotDetected) B. pertussis DNA (PCR) Not Detected (NotDetected) B.parapertussis DNA PCR Not Detected (NotDetected) C. pneumoniae DNA (PCR) Not Detected (NotDetected) Coronavirus OC43 (PCR) Not Detected (NotDetected) Coronavirus HKU1 (PCR) Not Detected (NotDetected) Coronavirus 229E (PCR) Not Detected (NotDetected) SARS-CoV-2 (PCR) Not Detected (NotDetected) Coronavirus NL63 (PCR) Not Detected (NotDetected) Human Metapneumovir PCR Not Detected (NotDetected) Influenza Type A (PCR) Not Detected (NotDetected) Influenza Type B (PCR) Not Detected (NotDetected) M. pneumoniae (PCR) Not Detected (NotDetected) Parainfluenza 1 (PCR) Not Detected (NotDetected) Parainfluenza 2 (PCR) Not Detected (NotDetected) Parainfluenza 3 (PCR) Not Detected (NotDetected) Parainfluenza 4 (PCR) Not Detected (NotDetected) RSV (PCR) Not Detected (NotDetected) Entero/Rhino (PCR) Not Detected (NotDetected) Imaging Data Attestation: I personally reviewed and interpreted this imaging study as follows: My Impression: Chest x-raycardiomegaly. There are some increased interstitial markings that she does have a CHF component. No pneumothorax seen. Radiologist's Impression: Chest X-Ray 01/06/24 14:13 XR chest 1V not portable HISTORY: Chest pain, nonspecific COMPARISON: Chest 12/20/2023. FINDINGS: No pneumothorax. Trace bilateral pleural effusions are again noted. Mild cardiomegaly and emphysema, unchanged. There is diffuse interstitial/vascular thickening which is slightly progressed. This favors mild congestive change on the background of chronic interstitial lung disease. No new focal lung consolidations to suggest a pneumonia. There is an old nonunited distal right clavicle fracture. Calcifications within the aortic knob. Ureteral stents are partially visualized on this study. IMPRESSION: 1. Cardiomegaly with mild congestive change and trace bilateral pleural effusions. 2. Emphysema again noted. ACT 112: Negative or not required by law. Electronically signed by: Ramsey Hunt M.D. 01/06/2024 4:19 PM Abdomen/Pelvis CT 01/06/24 16:[address] WITHOUT CONTRAST CT DOSE: 732.03 mGy.cm HISTORY: elevated creat, stent, eval for obst TECHNIQUE: Multiaxial CT images of the abdomen and pelvis were performed without contrast. A dose lowering technique was utilized adhering to the principles of ALARA. COMPARISON STUDY: Renal ultrasound 01/03/2024. Abdomen and pelvis CT 08/30/2023. FINDINGS: Emphysema with reticulonodular interstitial thickening at the lung bases. Small bilateral pleural effusions again noted. Interval progression of the anterior diaphragmatic nodularity/lymphadenopathy consistent with metastatic disease. There are few scattered subcentimeter pulmonary nodules again noted the lung bases. There is a new irregular nodular density within the base of the left lower lobe on image 22. This measures 14 mm. Metastatic disease would be the diagnosis of exclusion. No pneumoperitoneum. No pneumatosis. Multiple scattered lytic osseous lesions consistent with metastatic disease which have progressed. This includes a 16 mm lytic lesion within the left posterior 10th rib with an associated pathologic fracture. This is new compared to the prior study. There are few pathologic fractures within the right anterior sixth and eighth ribs which are likely subacute. Moderate to severe body wall edema has progressed. Paravertebral soft tissue within the lower thoracic spine has progressed and is consistent with metastatic disease. Scattered subtle hypodense lesions within the liver are new compared the prior study and likely represent metastatic disease. Dominant lesion within the left hepatic lobe measures 17 mm. The unenhanced gallbladder, pancreas, and spleen are unremarkable. Mild bilateral adrenal gland thickening persists. Bilateral ureteral stents appear and good position. Mild right hydronephrosis, unchanged. No significant left sided hydronephrosis. The bladder is not well-distended. Diffuse bladder wall thickening is noted. Suboptimal evaluation for bowel pathology due to the lack of intravenous and oral contrast. However, there is no definite bowel wall thickening or obstruction. Infiltrative retroperitoneal soft tissue has slightly progressed consistent with metastatic disease. There is scattered omental nodularity as well as perinephric nodularity with a small amount of ascites. This consistent with progression of the patient's known peritoneal carcinomatosis. A dominant left perinephric nodule on image 77 measures 15 mm. Soft tissue abnormality within the central mesentery is again noted and better appreciated on the prior study. This is consistent with metastatic disease. Apparent bladder wall thickening is likely due to the progressive peritoneal carcinomatosis. IMPRESSION: 1. Interval progression of the extensive peritoneal carcinomatosis with a small amount of ascites. 2. Interval progression of the osteolytic metastatic disease with a few pathologic fractures within the ribs. 3. Interval progression of the lower thoracic paravertebral and retroperitoneal infiltrative soft tissue consistent with metastatic disease. 4. Interval development of multiple hypodense hepatic lesions consistent with metastatic disease. 5. Mild right hydronephrosis, unchanged. The bilateral ureteral stents appear and good position. 6. No evidence for bowel obstruction. 7. Additional findings as described above. ACT 112: Negative or not required by law. Electronically signed by: Ramsey Hunt M.D. 01/06/2024 5:19 PM ECG Data Attestation: I personally reviewed and interpreted this ECG as follows: Indication: + SOB/dyspnea Rate (beats per minute): 78 Rhythm: + normal sinus ECG Intervals/blocks: + Normal QRS, + Normal QT and + Normal NH ECG [place]: + Normal ECG ST segments: + Normal ST segments ECG Findings: no PACs or no PVCs Comparison ECG Date: from (12/20/23) Change: no significant change MDM Narrative This patient comes in as scribed above. She was placed on a monitoring specialist and room C12. She is here for treatment evaluation of shortness of breath . she does have a history of CHF as well as cancer. IV access established . chest x- ray does show mild congestive heart failure component. EKG shows no ischemic changes or ectopy. Labs were also obtained she was reassessed frequently. Her creatinine is worse than baseline at 2.77. I did get a CAT scan of her abdomen and there is no definite obstructive uropathy however she has extensive progression of her cancer. She was hypoxemic in triage at 75% and she does have peripheral edema this may be related to CHF they could also be related to her kidneys. I do think she needs to be admitted/observed for further treatment and evaluation and consultation with cardiology and nephrology. She appears comfortable at present with the oxygen on. I have discussed the results with the patient and [facility]. Continuous cardiac monitoring: Orders placed in EMR for continuous cardiac monitoring: Pulm evaluation patient went to be normal sinus rhythm rate of 78 Impression & Plan Hypoxemia, Acute CHF, Edema, SOB (shortness of breath), Metastatic cancer, Renal failure Discharge Plan Visit Data Chief Complaint: Leg Weakness, Bilateral Stated Complaint: diff ambulating ED Provider: John Hurtado Discharge Problem: Hypoxemia, Acute CHF, Edema, SOB (shortness of breath), Metastatic cancer, Renal failure Patient Disposition: Admitted As Inpatient Discharge Instructions Interventions: ED Discharge Assessment Last Done: 01/06/24 20:08 Discharge Problem: Acute CHF Qualifiers: Heart failure type: unspecified Qualified Code(s): I50.9 - Heart failure, unspecified Edema Qualifiers: Edema type: localized Qualified Code(s): R60.0 - Localized edema Metastatic cancer Qualifiers: Area of secondary neoplastic involvement: unspecified site Qualified Code(s): C 79.9 - Secondary malignant neoplasm of unspecified site Renal failure Qualifiers: Renal failure chronicity: acute on chronic Acute renal failure type: u nspecified Chronic kidney disease stage: unspecified stage Qualified Code(s): N 17.9 - Acute kidney failure, unspecified; N18.9 - Chronic kidney disease, unspecified
[2024-01-06 16:31] LABS: Anion Gap 13 (3-11); Bilirubin,Total 0.6 mg/dl (0.2-1.0); Calcium 11.4 mg/dl (8.6-10.3); Carbon Dioxide 12 mmol/L (21-32); Chloride 101 mmol/L (98-107); Sodium 126 mmol/L (136-145)
[2024-01-06 16:37] LABS: Alanine Aminotransferase 28 U/L (7-52); Albumin Globulin Ratio 1.1 (0.9-2); Alkaline Phosphatase 241 U/L (34-104); Aspartate Aminotransferase 94 U/L (13-39); BUN Creatinine Ratio 15.2 (10-20); Blood Urea Nitrogen 42 mg/dl (6-23); Est GFR (African American) 18.5 ml/min; Globulin 3.5 gm/dl (2.5-4.0); Glucose 80 mg/dl (70-99(Fasting)); Total Protein 7.5 gm/dl (6.0-8.3)
[2024-01-06 16:38] LABS: Troponin I High Sensitivity 16.9 pg/ml (0-14)
[2024-01-06 16:59] LABS: Basophils # (auto) 0.04 K/uL (0.00-0.20); Basophils % (auto) 0.5 %; Eosinophils # (auto) 0.02 K/uL (0.00-0.50); Eosinophils % (auto) 0.2 %; Hematocrit (blood only) 37.8 % (37.0-47.0); Hemoglobin 12.9 g/dl (12.0-16.0); Immature Granulocytes # (auto) 0.05 K/uL (0.01-0.20); Immature Granulocytes % (auto) 0.6 %; Lymphocytes # (auto) 1.12 K/uL (1.20-3.40); Lymphocytes % (auto) 13.1 %; Mean Corpuscular Hemoglobin 30.2 pg (25.0-34.0); Mean Corpuscular Hgb Conc 34.1 g/dL (32.0-36.0); Mean Corpuscular Volume 88.5 fL (80.0-100.0); Mean Platelet Volume 10.4 fL (9.4-12.4); Monocytes # (auto) 0.74 K/uL (0.11-0.59); Monocytes % (auto) 8.7 %; Neutrophils # (auto) 6.57 K/uL (1.40-6.50); Neutrophils % (auto) 76.9 %; Platelet Count 261 K/uL (130-400); RDW Coefficient of Variation 16.6 % (11.5-14.5); RDW Standard Deviation 53.1 fL (36.4-46.3); Red Blood Count 4.27 M/uL (4.20-5.40); White Blood Count 8.54 K/ul (4.8-10.8)
--- NOTE | 2024-01-06 17:22 | CT Scan Report ---
ABDOMEN AND PELVIS CT WITHOUT CONTRAST CT DOSE: 732.03 mGy.cm HISTORY: elevated creat, stent, eval for obst TECHNIQUE: Multiaxial CT images of the abdomen and pelvis were performed without contrast. A dose lo wering technique was utilized adhering to the principles of ALARA. COMPARISON STUDY: Renal ultrasound 01/03/2024. Abdomen and pelvis CT 08/30/2023. FINDINGS: Emphysema with reticulonodular interstitial thickening at the lung bases. Small bilateral p leural effusions again noted. Interval progression of the anterior diaphragmatic nodularity/lymphaden opathy consistent with metastatic disease. There are few scattered subcentimeter pulmonary nodules ag ain noted the lung bases. There is a new irregular nodular density within the base of the left lower lobe on image 22. This measures 14 mm. Metastatic disease would be the diagnosis of exclusion. No pne umoperitoneum. No pneumatosis. Multiple scattered lytic osseous lesions consistent with metastatic di sease which have progressed. This includes a 16 mm lytic lesion within the left posterior 10th rib wi th an associated pathologic fracture. This is new compared to the prior study. There are few patholog ic fractures within the right anterior sixth and eighth ribs which are likely subacute. Moderate to s evere body wall edema has progressed. Paravertebral soft tissue within the lower thoracic spine has p rogressed and is consistent with metastatic disease. Scattered subtle hypodense lesions within the li joanne are new compared the prior study and likely represent metastatic disease. Dominant lesion within the left hepatic lobe measures 17 mm. The unenhanced gallbladder, pancreas, and spleen are unremarkab le. Mild bilateral adrenal gland thickening persists. Bilateral ureteral stents appear and good posit ion. Mild right hydronephrosis, unchanged. No significant left sided hydronephrosis. The bladder is n ot well-distended. Diffuse bladder wall thickening is noted. Suboptimal evaluation for bowel patholog y due to the lack of intravenous and oral contrast. However, there is no definite bowel wall thickeni ng or obstruction. Infiltrative retroperitoneal soft tissue has slightly progressed consistent with m etastatic disease. There is scattered omental nodularity as well as perinephric nodularity with a sma ll amount of ascites. This consistent with progression of the patient's known peritoneal carcinomatos is. A dominant left perinephric nodule on image 77 measures 15 mm. Soft tissue abnormality within the central mesentery is again noted and better appreciated on the prior study. This is consistent with metastatic disease. Apparent bladder wall thickening is likely due to the progressive peritoneal carc inomatosis. IMPRESSION: 1. Interval progression of the extensive peritoneal carcinomatosis with a small amount of ascites. 2. Interval progression of the osteolytic metastatic disease with a few pathologic fractures within t he ribs. 3. Interval progression of the lower thoracic paravertebral and retroperitoneal infiltrative soft tis betty consistent with metastatic disease. 4. Interval development of multiple hypodense hepatic lesions consistent with metastatic disease. 5. Mild right hydronephrosis, unchanged. The bilateral ureteral stents appear and good position. 6. No evidence for bowel obstruction. 7. Additional findings as described above. ACT 112: Negative or not required by law. Electronically signed by: Ramsey Hunt M.D. 01/06/2024 5:19 PM
[2024-01-06 17:31] LABS: INR 1.4 (0.9-1.1); Partial Thromboplastin Ratio 1.3; Partial Thromboplastin Time 34 Seconds (21-31); Prothrombin Time 14.4 Seconds (9.0-12.0)
[2024-01-06 17:57] LABS: Adenovirus PCR Not Detected (NotDetected); Bordetella parapertussis PCR Not Detected (NotDetected); Bordetella pertussis PCR Not Detected (NotDetected); Chlamydia pneumoniae PCR Not Detected (NotDetected); Coronavirus 229E PCR Not Detected (NotDetected); Coronavirus CoV-2 (COVID19)PCR Not Detected (NotDetected); Coronavirus HKU1 PCR Not Detected (NotDetected); Coronavirus NL63 PCR Not Detected (NotDetected); Coronavirus OC43PCR Not Detected (NotDetected); Human Metapneumovirus PCR Not Detected (NotDetected); Influenza A PCR Not Detected (NotDetected); Influenza B PCR Not Detected (NotDetected); Mycoplasma pneumoniae PCR Not Detected (NotDetected); Parainfluenza Virus 1 PCR Not Detected (NotDetected); Parainfluenza Virus 2 PCR Not Detected (NotDetected); Parainfluenza Virus 3 PCR Not Detected (NotDetected); Parainfluenza Virus 4 PCR Not Detected (NotDetected); Respiratory Syncytial VirusPCR Not Detected (NotDetected); Rhinovirus/Enterovirus PCR Not Detected (NotDetected)
--- NOTE | 2024-01-06 18:11 | History & Physical Report ---
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 Please refer to HPI regarding pts extensive metastatic breast cancer hx that is now metastasized to liver, bone and peritoneal carcinomatosis. Recent hospitalization 12/19-12/25 2/2 lower extremity edema in setting of CHANEL from obstructive uropathy due to peritoneal mets s/p b/l ureteral stent placement by urology on 12/21. Cr peaked at 2.3 and downtrended to 1.8 after stent placement. She was discharged and after few days her SOB and swelling worsening, along with significant fatigue, early satiety, decreased urine frequency or bowel movement and worsened lower extremity redness. Please refer to Dr. Tafoya addendum for details regarding assessment and plan. A total of 76 minutes was spent coordinating, documenting, and providing care for this patient excluding time spent in the performance of separately billed services. This included personally viewing all current laboratories and imaging studies, medication reconciliation, outpatient chart review, and discussion with specialists. 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 Of significance: Diagnosed with left breast lobular carcinoma in 2014 s/p lumpectomy and sentinel lymph node biopsy, s/p adjuvant chemo (ER 100%, DC negative, Her-2 negatve). Stage IIb at diagnosis. Received anastrozole Apr 2016-August suspected to have recurrence of disease involving the peritoneum, retroperitoneal region, bone (L4 vertebral body). Also found to have hypercalcemia at this time and was started on Zometa. 08/30/23 LLE DVT started on long-term anticoagulation with Eliquis Started on Faslodex and Abemaciclib as second-line hormonal treatment, Xgeva every 4 weeks. Patient recently hospitalized 12/19 to 12/26/2023 secondary to bilateral lower extremity edema secondary to acute renal failure in setting of obstructive uropathy. Acute heart failure have been ruled out. She had a normal echocardiogram with preserved EF. Her Eliquis was reduced to 2.5 mg twice daily due to an uptrend in her renal function. Urology was on board and she underwent bilateral ureteral stent placement on 12/21 as urology felt her CHANEL was in partial due to obstructive uropathy due to obstruction from peritoneal carcinomatosis. She was initially treated with IV diuretics and has had since stopped. Nephrology was on board managing CHANEL and creatinine peaked at 2.3 and trended down to 1.8 on day of discharge. She was discharged home with appropriate follow-ups. She reports having zero energy. It takes her 1 hr to do something that she could do in 10 minutes. She has been more short of breath. She denies any coughing or chest pain. She denies any abdominal pain but is unable to eat. She has an appetite but when she starts eating she gets bloated and feels full quickly. She vomits easily if she feels full. She is not moving her bowels regularly and she feels constipated. She had a very small BM this morning. She is making urine but very small volume. She denies dysuria or hematuria. She complains of redness to her L leg that started shortly after she was discharged. She feels her swelling has been progressively getting worse. SHe has chemo induced neuropathy and therefore doesn't have feeling in her legs. In ED patient had evidence of worsening BUN and creatinine at 42 and 2.77 with a sodium of 126. Her calcium is elevated 11.4. She did have a mild elevation of troponin at 16.9 without any ischemic EKG changes. Her chest x-ray revealed mild congestive change but no overt heart failure. CT abdomen pelvis reveal interval progression of extensive metastatic disease, please refer to formal report. Her bilateral ureteral stents do appear to be in good position with unchanged mild right hydronephrosis. Allergies Allergy/AdvReac Type Severity Reaction Status Date / Time No Known Allergies Allergy Verified 12/20/23 21:26 Home Medications Medication Instructions Recorded Confirmed Type pravastatin 80 mg tablet 80 mg PO HS 08/30/23 01/06/24 History venlafaxine 150 mg 150 mg PO HS 08/30/23 01/06/24 History capsule,extended release 24 hr acetaminophen 325 mg tablet 325 mg PO QID PRN Pain 12/20/23 01/06/24 History (Tylenol) ondansetron HCl 4 mg tablet 4 mg PO Q6 PRN Nausea 12/20/23 01/06/24 History apixaban 5 mg tablet (Eliquis) 2.5 mg (1/2 x 5 mg) PO BID #74 tabs 12/26/23 01/06/24 Rx magnesium chloride 64 mg 64 mg PO QAM 30 days #30 tabs 12/26/23 01/06/24 Rx (magnesium chloride) tablet,delayed release (Mag 64) metoprolol succinate 25 mg 12.5 mg (1/2 x 25 mg) PO BID 30 12/26/23 01/06/24 Rx tablet,extended release 24 hr days #30 tabs Past Med/Surg History Problem List (Updated 01/06/24 @ 19:25 by Angela Lion PA-C) Left leg cellulitis Swelling of both lower extremities Hypercalcemia Acute hyponatremia 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 Peritoneal carcinomatosis Bladder tumor Bilateral hydronephrosis Electrolyte abnormality Acute kidney injury Hypokalemia (Acute) Elevated troponin (Acute) Edema (Acute) Acute CHF (Acute) 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 breast in female, estrogen receptor positive (Chronic 03/16/15) Dyslipidemia (Chronic) Depression (Chronic) Anxiety (Chronic) Medical History History of measles CKD (chronic kidney disease) stage 3, GFR 30-59 ml/min Granuloma annulare DVT (deep venous thrombosis) History of tobacco abuse Surgical History History of cataract surgery H/O lymph node biopsy S/P partial mastectomy History of carpal tunnel surgery Family History Sister Diabetes Grandmother (Maternal) Diabetes Mother Diabetes Lung cancer Father Heart disease Social History Smoking Status: Former smoker Tobacco Type: Cigarettes Hx Alcohol Use: No Hx Substance Use: No Preferred Language: Brazilian Communication Ability: Effective Fiscal Clerk Required: No Beliefs That Will Affect Care: None Feels Safe at Home: Yes Assistive Devices: None Review of Systems Review of Systems: All systems reviewed & are unremarkable except as noted in HPI & below Physical Exam Physical Exam: please refer to Dr. Tafoya addendum for physical exam findings. Results & Data Results & Data Vital Signs (Past 12 Hours) Vital Signs Temp Pulse Resp BP Pulse Ox O2 Del Method O2 Flow Rate 01/06/24 17:02 93 Room Air 4 01/06/24 16:50 74 01/06/24 13:59 36.4 C L 92 H 30 H 117/66 Nasal Cannula 4 Laboratory Results I have independently reviewed and interpreted patient's admitting labs including CBC, CMP, PTT, PT/INR, mag and troponin. Diagnostic Findings Chest X-Ray 01/06/24 14:13 XR chest 1V not portable HISTORY: Chest pain, nonspecific COMPARISON: Chest 12/20/2023. FINDINGS: No pneumothorax. Trace bilateral pleural effusions are again noted. Mild cardiomegaly and emphysema, unchanged. There is diffuse interstitial/vascular thickening which is slightly progressed. This favors mild congestive change on the background of chronic interstitial lung disease. No new focal lung consolidations to suggest a pneumonia. There is an old nonunited distal right clavicle fracture. Calcifications within the aortic knob. Ureteral stents are partially visualized on this study. IMPRESSION: 1. Cardiomegaly with mild congestive change and trace bilateral pleural effusions. 2. Emphysema again noted. ACT 112: Negative or not required by law. Electronically signed by: Ramsey Hunt M.D. 01/06/2024 4:19 PM Abdomen/Pelvis CT 01/06/24 16:[address] WITHOUT CONTRAST CT DOSE: 732.03 mGy.cm HISTORY: elevated creat, stent, eval for obst TECHNIQUE: Multiaxial CT images of the abdomen and pelvis were performed without contrast. A dose lowering technique was utilized adhering to the principles of ALARA. COMPARISON STUDY: Renal ultrasound 01/03/2024. Abdomen and pelvis CT 08/30/2023. FINDINGS: Emphysema with reticulonodular interstitial thickening at the lung bases. Small bilateral pleural effusions again noted. Interval progression of the anterior diaphragmatic nodularity/lymphadenopathy consistent with metastatic disease. There are few scattered subcentimeter pulmonary nodules again noted the lung bases. There is a new irregular nodular density within the base of the left lower lobe on image 22. This measures 14 mm. Metastatic disease would be the diagnosis of exclusion. No pneumoperitoneum. No pneumatosis. Multiple scattered lytic osseous lesions consistent with metastatic disease which have progressed. This includes a 16 mm lytic lesion within the left posterior 10th rib with an associated pathologic fracture. This is new compared to the prior study. There are few pathologic fractures within the right anterior sixth and eighth ribs which are likely subacute. Moderate to severe body wall edema has progressed. Paravertebral soft tissue within the lower thoracic spine has progressed and is consistent with metastatic disease. Scattered subtle hypodense lesions within the liver are new compared the prior study and likely represent metastatic disease. Dominant lesion within the left hepatic lobe measures 17 mm. The unenhanced gallbladder, pancreas, and spleen are unremarkable. Mild bilateral adrenal gland thickening persists. Bilateral ureteral stents appear and good position. Mild right hydronephrosis, unchanged. No significant left sided hydronephrosis. The bladder is not well-distended. Diffuse bladder wall thickening is noted. Suboptimal evaluation for bowel pathology due to the lack of intravenous and oral contrast. However, there is no definite bowel wall thickening or obstruction. Infiltrative retroperitoneal soft tissue has slightly progressed consistent with metastatic disease. There is scattered omental nodularity as well as perinephric nodularity with a small amount of ascites. This consistent with progression of the patient's known peritoneal carcinomatosis. A dominant left perinephric nodule on image 77 measures 15 mm. Soft tissue abnormality within the central mesentery is again noted and better appreciated on the prior study. This is consistent with metastatic disease. Apparent bladder wall thickening is likely due to the progressive peritoneal carcinomatosis. IMPRESSION: 1. Interval progression of the extensive peritoneal carcinomatosis with a small amount of ascites. 2. Interval progression of the osteolytic metastatic disease with a few pathologic fractures within the ribs. 3. Interval progression of the lower thoracic paravertebral and retroperitoneal infiltrative soft tissue consistent with metastatic disease. 4. Interval development of multiple hypodense hepatic lesions consistent with metastatic disease. 5. Mild right hydronephrosis, unchanged. The bilateral ureteral stents appear and good position. 6. No evidence for bowel obstruction. 7. Additional findings as described above. ACT 112: Negative or not required by law. Electronically signed by: Ramsey Hunt M.D. 01/06/2024 5:19 PM Medications Administered Current Inpatient Medications Ceftriaxone Sodium (Rocephin) 2,000 mg in 50 mls @ 100 mls/hr IV Q24H SHAILA Stop: 01/13/24 18:29 ECG Additional Comments: I have independently reviewed and interpreted patient's admitting EKG which revealed: NSR 78 , no significant ST change COVID-19 Results Results COVID-19 Adm Lab Results: RBC 4.27 M/uL (4.20-5.40) 01/06/24 WBC 8.54 K/ul (4.8-10.8) 01/06/24 Hgb 12.9 g/dl (12.0-16.0) 01/06/24 Hct 37.8 % (37.0-47.0) 01/06/24 Plt Count 261 K/uL (130-400) 01/06/24 Neutrophils (%) (Auto) 76.9 % 01/06/24 Lymphocytes (%) (Auto) 13.1 % 01/06/24 Monocytes # (Auto) 0.74 K/uL (0.11-0.59) H 01/06/24 Eosinophils # (Auto) 0.02 K/uL (0.00-0.50) 01/06/24 Immature Granulocyte % (Auto) 0.6 % 01/06/24 Neutrophils # (Auto) 6.57 K/uL (1.40-6.50) H 01/06/24 Lymphocytes # (Auto) 1.12 K/uL (1.20-3.40) L 01/06/24 Monocytes # (Auto) 0.74 K/uL (0.11-0.59) H 01/06/24 Eosinophils # (Auto) 0.02 K/uL (0.00-0.50) 01/06/24 Basophils # (Auto) 0.04 K/uL (0.00-0.20) 01/06/24 Immature Granulocyte # (Auto) 0.05 K/uL (0.01-0.20) 4 Na 126 mmol/L (136-145) L 01/06/24 K 4.0 mmol/L (3.5-5.1) 01/06/24 Cl 101 mmol/L (98-107) 01/06/24 CO2 12 mmol/L (21-32) L 01/06/24 Anion Gap 13 (3-11) H 01/06/24 BUN 42 mg/dl (6-23) H 01/06/24 Creatinine 2.77 mg/dl (0.6-1.2) H 01/06/24 BUN/Creatinine Ratio 15.2 (10-20) 01/06/24 Glucose Level 80 mg/dl (70-99(Fasting)) 01/06/24 Ca 11.4 mg/dl (8.6-10.3) H 01/06/24 Total Bilirubin 0.6 mg/dl (0.2-1.0) 01/06/24 AST/SGOT 94 U/L (13-39) H 01/06/24 ALT/SGPT 28 U/L (7-52) 01/06/24 Alkaline Phosphatase 241 U/L (34-104) H 01/06/24 Total Protein 7.5 gm/dl (6.0-8.3) 01/06/24 Albumin 4.0 gm/dl (3.4-5.0) 01/06/24 Globulin 3.5 gm/dl (2.5-4.0) 01/06/24 Albumin/Globulin Ratio 1.1 (0.9-2) 01/06/24 PTT 34 Seconds (21-31) H 01/06/24 INR 1.4 (0.9-1.1) H 01/06/24 Adenovirus (PCR) Not Detected (NotDetected) 01/06/24 B. parapertussis DNA (PCR) Not Detected (NotDetected) 12/21 10/13 B. pertussis DNA (PCR) Not Detected (NotDetected) 01/06/24 C. pneumoniae DNA (PCR) Not Detected (NotDetected) 4 Coronavirus Type OC43 (PCR) Not Detected (NotDetected) Coronavirus Type HKU1 (PCR) Not Detected (NotDetected) Coronavirus Type 229E (PCR) Not Detected (NotDetected) COVID-19 PCR Not Detected (NotDetected) 01/06/24 Coronavirus Type NL63 (PCR) Not Detected (NotDetected) Human Metapneumovirus (PCR) Not Detected (NotDetected) Influenza Virus Type A (PCR) Not Detected (NotDetected) Influenza Virus Type B (PCR) Not Detected (NotDetected) M. pneumoniae (PCR) Not Detected (NotDetected) 01/06/24 Parainfluenza Type 1 (PCR) Not Detected (NotDetected) 12/21 10/13 Parainfluenza Type 2 (PCR) Not Detected (NotDetected) 12/21 10/13 Parainfluenza Type 3 (PCR) Not Detected (NotDetected) 12/21 10/13 Parainfluenza Type 4 (PCR) Not Detected (NotDetected) 12/21 10/13 RSV (PCR) Not Detected (NotDetected) 01/06/24 Enterovirus/Rhinovirus (PCR) Not Detected (NotDetected) Chest X-Ray 01/06/24 Code Status & VTE Plan Code Status FULL CODE Supervising Physician Co-Signing Physician Notes 78-year-old lady with PMH of stage IV breast cancer metastatic to liver and peritoneal carcinomatosis and metastatic to bone, chemotherapy-induced neuropathy, DVT, general anxiety, hypercalcemia, HLD presented to the ED with complaint of shortness of breath and progressive lower extremity swelling. Patient reporting extreme tiredness and weakness at presentation, progressive lower extremity swelling and shortness of breath few days after discharge from her last admission. Patient denies cough/chest pain/palpitation/febrile illness. Patient does report early satiety and hence has poor p.o. intake, occasional nausea and vomiting, inconsistent and a small bowel movements. Patient does report very small amount of urine very frequently but denies any pain or burning while passing urine. Patient reports full code and states that she does not want to be managed under ventilation if her quality of life is not expected to be better. Patient states that her sister Clau is her POA. Assessment and plan: Progressive weakness Metastatic cancer, progressive For patient's cancer history, refer to HPI. Patient comes in with progressive weakness, is undergoing chemotherapy as an outpatient, admitting CTAP with progression of her metastatic disease. PT/OT. Oncology consult for further input and recommendation. Patient not aware of palliative care, such has been discussed with the patient but she would like to wait until further oncology input while in hospital. Dyspnea on exertion Progressive lower extremity swelling Progressive renal function worsening Hypercalcemia Patient presents with COOPER and progressive lower extremity swelling, reports he makes very little urine. CTAP reviewed. Though CXR with mild congestive changes, clear to auscultation on bedside exam. Heart failure was ruled out during last admission. Creatinine 2.77, during last admission around 2.0. Patient has bilateral ureteral stent. Likely secondary progressive metastatic disease leading to obstructive uropathy. will consult urology. Routine Consult nephrology, d/w nephro over the phone, recs a dose of calcitonin for now w/ labs f/u in am. Labs in AM. Wean down oxygen as tolerated. Hyponatremia: Sodium of 126, baseline around 136. Urine osmolality/serum osmolality/urine sodium sent. Follow. Likely SIADH vs poor nutrition in the setting of metastatic disease. Nephrology consult, labs in AM. d/w nephro, no FR for now. Increase protein content in diet. LLE cellulitis: rocephin daily. Transaminitis: Likely secondary to metastatic disease, trend LFT in AM, if worsening consider inpatient GI consult. Discoloration (purplish) of forefoot bl: per pt worsening. will get arterial Doppler ble, ? vascular consult pending result. On exam: GENERAL: Alert and oriented x3. NAD, on 2L NC O2 HEENT: No pallor, no icterus. Pupils equal, round and reactive to light. Oral mucosa moist. NECK: No JVD, no neck masses. HEART: S1 and S2 heard. Regular rate and rhythm. No murmur, no gallop. RESPIRATORY SYSTEM: Normal AP diameter. No accessory muscle use. No wheezing, no crackles. ABDOMEN: Soft, bowel sounds present, nontender, no distention. CENTRAL NERVOUS SYSTEM: No facial droop. Speech is clear. Obeys simple commands. Moves extremities. EXTREMITIES: RLE 2+ edema. LLE 2+ edema, erythema and warmth of lt leg noted. Purple discoloration of b/l forefoot noted. I have seen and examined the patient and have discussed the case with the provider above. I agree with the assessment and plan as stated. time spent: 45 minutes
--- NOTE | 2024-01-06 18:47 | Electrocardiogram Report ---
Test Reason : Blood Pressure : */* mmHG Vent. Rate : 78 BPM Atrial Rate : 78 BPM P-R Int : 154 ms QRS Dur : 78 ms QT Int : 362 ms P-R-T Axes : -8 -10 -14 degrees QTcB Int : 412 ms Normal sinus rhythm Normal ECG When compared with ECG of 20-Dec-2023 19:01, Nonspecific T wave abnormality no longer evident in Anterior leads Confirmed by Hermann Wilson ([id number]) on 01/06/2024 6:47:00 PM Referred By: Confirmed By: Hermann Wilson
[2024-01-06] MEDS: cefTRIAXone SODIUM 2,000 MG/50 ML BAG IV SCH (19:30)
--- NOTE | 2024-01-06 21:02 | Urology Consultation ---
Date of Consultation January 06, 2024 Assessment & Plan (1) Bilateral hydronephrosis: The patient has been admitted on the hospital service. From a urologic perspective we recommend the following: It appears that the patient's ureteral stents are in good position and she does not have any worsening hydronephrosis The patient is noted to have acute kidney injury, I do suspect that this may be in part due to the patient not eating and drinking sufficiently The patient does describe urinary frequency. The admitting service has ordered a urinalysis to evaluate for urinary tract infection. I have also recommended that the patient be bladder scan after she voids and if she has a significant amount of urinary retention a Young catheter should be placed at least temporarily. Serial labs should be followed Nephrotoxins should be avoided Additional recommendations be forthcoming based on her clinical course as unfolds History of Present Illness Reason for Consultation: History of ureteral stents Attending Physician: Alvarez Tafoya MD History of Present Illness This is a 78-year-old female who has a history of metastatic breast cancer. Patient is known to [facility] physician group urology as she underwent a cystoscopy on 12/22/2023 secondary to bilateral hydronephrosis that was suspected to be in part due to peritoneal carcinomatosis. The patient has been home but presented to the emergency department today secondary to significant weakness. The patient says that she has very little energy and cannot perform her day-to-day activities without extreme difficulty. She denies any fevers, shakes, or chills. She does note that she gets full quite easily after eating and if she overeats gets extensive nausea and vomiting. She notes that she is not eating or drinking very much. Concerning her urologic stents she notes that she is urinating without difficulty but has been urinating only small amounts at a time and feels like she needs to go to urinate quite frequently. She denies any dysuria or hematuria. She denies any back or flank pain. She denies any abdominal pain. Since arrival emergency department she has had labs and imaging which I independent reviewed. A chest x-ray showed some congestive change with trace bilateral effusions. She did have a CT scan of the abdomen pelvis that showed progression of patient's metastatic disease. She was noted to have mild right hydronephrosis which is unchanged from previous scans. She did not have any significant left-sided hydronephrosis on the study. She had ureteral stents noted bilaterally that appear to be in good position. Labs include a CBC her white blood cell count, hemoglobin, hematocrit, platelet count were normal. Coagulation studies showed an INR of 1.4. Chemistry profile showed sodium was 126 with a potassium of 4.0. Her BUN and creatinine were 42 and 2.7. (Review of records show that over the past month her creatinine has ranged from 1.5- 2.3.) At the time of my interview she was resting comfortably in bed and she was in no distress. Allergies Allergy/AdvReac Type Severity Reaction Status Date / Time No Known Allergies Allergy Verified 12/20/23 21:26 Home Medications Medication Instructions Recorded Confirmed Type pravastatin 80 mg tablet 80 mg PO HS 08/30/23 01/06/24 History venlafaxine 150 mg 150 mg PO HS 08/30/23 01/06/24 History capsule,extended release 24 hr acetaminophen 325 mg tablet 325 mg PO QID PRN Pain 12/20/23 01/06/24 History (Tylenol) ondansetron HCl 4 mg tablet 4 mg PO Q6 PRN Nausea 12/20/23 01/06/24 History apixaban 5 mg tablet (Eliquis) 2.5 mg (1/2 x 5 mg) PO BID #74 tabs 12/26/23 01/06/24 Rx magnesium chloride 64 mg 64 mg PO QAM 30 days #30 tabs 12/26/23 01/06/24 Rx (magnesium chloride) tablet,delayed release (Mag 64) metoprolol succinate 25 mg 12.5 mg (1/2 x 25 mg) PO BID 30 12/26/23 01/06/24 Rx tablet,extended release 24 hr days #30 tabs Patient History Medical History History of measles CKD (chronic kidney disease) stage 3, GFR 30-59 ml/min Granuloma annulare DVT (deep venous thrombosis) History of tobacco abuse Surgical History History of cataract surgery H/O lymph node biopsy S/P partial mastectomy History of carpal tunnel surgery Family History Sister Diabetes Grandmother (Maternal) Diabetes Mother Diabetes Lung cancer Father Heart disease Social History Smoking Status: Former smoker Tobacco Type: Cigarettes Hx Alcohol Use: No Hx Substance Use: No Preferred Language: Cuban Communication Ability: Effective Beauty Shop Manager Required: No Beliefs That Will Affect Care: None Feels Safe at Home: Yes Assistive Devices: None Review of Systems Review of Systems: All systems reviewed & are unremarkable except as noted in HPI & below Physical Exam Constitutional: no acute distress Eyes: no conjunctival abnormality ENMT: Ears: no hearing impairment and no external ear abnormality Mouth: no oropharynx abnormality Neck: trachea midline Respiratory: normal respiratory effort; no respiratory distress and no labored breathing Cardiovascular: Rate/Rhythm: regular rate and regular rhythm Gastrointestinal (Abdomen): Abdomen is soft and nondistended. There is no pain with palpation. There is no rebound tenderness or guarding. Musculoskeletal: No calf tenderness Skin: no rashes Neurologic: moves all extremities Psychiatric: A+Ox3, euthymic affect Genitourinary: No CVA tenderness with percussion bilaterally Results & Data Vital Signs (Past 12 Hours) Vital Signs Temp Pulse Resp BP Pulse Ox O2 Del Method O2 Flow Rate 01/06/24 20:08 Nasal Cannula 4 01/06/24 19:33 83 19 92 01/06/24 19:30 118/59 L 01/06/24 19:24 87 19 100 Nasal Cannula 4 01/06/24 19:15 85 18 94 Nasal Cannula, Other 4 01/06/24 19:00 92/58 L 01/06/24 18:45 77 17 99 01/06/24 18:33 71 17 93 01/06/24 18:30 111/70 01/06/24 18:24 77 19 100 01/06/24 18:09 70 23 90 01/06/24 18:01 118/71 01/06/24 17:54 79 21 75 L 01/06/24 17:30 76 20 01/06/24 17:09 73 17 01/06/24 17:02 93 Room Air 4 01/06/24 16:50 74 01/06/24 16:48 75 16 100 01/06/24 13:59 36.4 C L 92 H 30 H 117/66 Nasal Cannula 4 PG Care Time/CCT Total # of Minutes Spent Total Time Spent with Patient: Total time spent is greater than 50% in coordination of care (as documented) at patient's floor/unit and/or counseling patient: Coding Level of Care Code 32499 INT INP/OBS CARE MIN Diagnoses Bilateral hydronephrosis N13.30
[2024-01-06] MEDS: METOPROLOL SUCC 25MG EXT REL TAB PO SCH (21:10)
[2024-01-06] MEDS: VENLAFAXINE HCL XR 150 MG CAPXR PO SCH (21:11)
[2024-01-06] MEDS: PRAVASTATIN SOD 40 MG TAB PO SCH (21:12)
[2024-01-06] MEDS: APIXABAN 2.5 MG TAB PO SCH (21:14)
[2024-01-06] MEDS: CALCITONIN SALMON 400 UNITS/2 ML SQ ONE (21:20)
[2024-01-06] MEDS: ONDANSETRON INJ 2 MG/ML 2 ML VIAL IV PRN (22:24)
[2024-01-06 22:57] LABS: Appearance Urine Cloudy (Clear); Bacteria Urine Automated None Seen (None Seen); Bilirubin Urine Negative (Negative); Blood Urine 3+ (Negative); Color Urine Yellow; Epithelial Cell Urine Auto 0-2 /hpf (0-2); Glucose Urine UA Negative (Negative); Ketones Urine Negative (Negative); Leukocyte Esterase Urine 2+ (Negative); Nitrite Urine Negative (Negative); Protein Urine 2+ (Negative); Specific Gravity Urine 1.012 (1.000-1.030); Urobilinogen Urine Negative (Negative); WBC Urine Automated 21-50 /hpf (0-5); pH Urine 5.5 (4.5-7.5)
[2024-01-07] MEDS: ACETAMINOPHEN 325 MG TAB PO PRN (03:01)
[2024-01-07] MEDS: MAGNESIUM CHLORIDE W/CALCIUM 64MG DELAYED REL TAB PO SCH (08:01)
--- NOTE | 2024-01-07 08:13 | Ultrasound Report ---
US arterial duplex LE BI CLINICAL HISTORY: eval for arterial disease, diminished pulse. Lower extremity redness. COMPARISON STUDY: None. FINDINGS: There are normal biphasic to triphasic waveforms and velocities seen throughout the majorit y of the bilateral lower extremity arterial systems. There are few scattered areas of monophasic norm al velocity waveforms seen within the calf arteries with normal velocities. This suggests mild diffus e atherosclerotic disease. There is associated scattered calcified plaque. No evidence for significan t stenosis or occlusion. IMPRESSION: No hemodynamically significant stenosis or occlusion within the bilateral lower extremit y arterial systems. ACT 112: Negative or not required by law. Electronically signed by: Ramsey Hunt M.D. 01/07/2024 8:11 AM
[2024-01-07 08:49] LABS: Basophils # (auto) 0.03 K/uL (0.00-0.20); Basophils % (auto) 0.3 %; Eosinophils # (auto) 0.02 K/uL (0.00-0.50); Eosinophils % (auto) 0.2 %; Hematocrit (blood only) 30.4 % (37.0-47.0); Hemoglobin 10.2 g/dl (12.0-16.0); Immature Granulocytes # (auto) 0.05 K/uL (0.01-0.20); Immature Granulocytes % (auto) 0.6 %; Lymphocytes # (auto) 1.26 K/uL (1.20-3.40); Lymphocytes % (auto) 14.4 %; Mean Corpuscular Hemoglobin 29.8 pg (25.0-34.0); Mean Corpuscular Hgb Conc 33.6 g/dL (32.0-36.0); Mean Corpuscular Volume 88.9 fL (80.0-100.0); Mean Platelet Volume 9.6 fL (9.4-12.4); Monocytes # (auto) 0.88 K/uL (0.11-0.59); Monocytes % (auto) 10.1 %; Neutrophils # (auto) 6.48 K/uL (1.40-6.50); Neutrophils % (auto) 74.4 %; Platelet Count 256 K/uL (130-400); RDW Coefficient of Variation 17.1 % (11.5-14.5); RDW Standard Deviation 54.8 fL (36.4-46.3); Red Blood Count 3.42 M/uL (4.20-5.40); White Blood Count 8.72 K/ul (4.8-10.8)
[2024-01-07] MEDS: POLYETHYLENE (MIRALAX) 17 GM PACK PO SCH (08:59)
[2024-01-07 09:08] LABS: Albumin Globulin Ratio 1.2 (0.9-2); Albumin Level 3.3 gm/dl (3.4-5.0); BUN Creatinine Ratio 14.9 (10-20); Bilirubin,Total 0.4 mg/dl (0.2-1.0); Creatinine Clr Calc Pharmacy 13.2 ml/min; Est GFR (African American) 15.8 ml/min; Est GFR (Non-African American) 13.6 ml/min; Globulin 2.8 gm/dl (2.5-4.0); Magnesium 2.1 mg/dl (1.7-2.4); Phosphorus 4.4 mg/dl (2.5-4.9); Potassium 4.3 mmol/L (3.5-5.1); Total Protein 6.1 gm/dl (6.0-8.3)
--- NOTE | 2024-01-07 09:09 | Nephrology Consultation ---
Date of Consultation January 07, 2024 Assessment & Plan (1) Acute kidney injury: stage 2 nonoliguric rapidly progressive CHANEL on rapidly progressive CKD. wt 62.9 kg today standing; some overload -lactate and CK w/ next labs -quantify proteinuria, though stents in place will skew this -no indication for dialysis but cannot r/o need to discuss; w/ relative hypotension may not tolerate -strict I/O -daily bmp -continue nephrotoxin avoidance care coordinated w/ Dr Washburn regarding f/u labs, conservative mgt for now; consideration of palliative evaluation; we are in agreement; lab orders in (2) CKD (chronic kidney disease) stage 3, GFR 30-59 ml/min: new as of August 2023 and rapidly progressive >> baseline about 1.4 as of late November, but again rapidly progressive and baseline may be worse now. presented w/ creatinine 2.8 on 01/05 > 3.2 today. no e/o infection on UA; no e/o mauro obstruction on u/s. renal dysfunction abrupt and new since August with other e/o cancer return at that time. (3) Electrolyte abnormality: sodium 126, calcium 11.4 on presentation > 10 today; marked acid base problem w/ very low bicarb. her sodium was already 129 on 12/29 so this is not acute. volume overloaded on exam but likely intravascularly depleted. hypercalcemia may recur -BMP q 12 hr -would hold on lasix for now -VBG w/ next labs (4) Metastatic cancer: low threshold to involve palliative care and or have goals of care discussions; code status currently full (5) Emphysema/COPD: makes her more prone to hyponatremia History of Present Illness Reason for Consultation: CHANEL, hypercalcemia Requesting Physician: Dr Tafoya Attending Physician: Dr Washburn History of Present Illness 78 y/o F whom I'm asked to see for CHANEL and hypercalcemia was admitted last evening for same. PMH includes Stage IV breast cancer w/ mets to liver, bone and peritoneal carcinomatosis, chemotherapy induced neuropathy, COPD, hypercalcemia, hx of DVT, anxiety. 2014 dx lobular L breast carcinoma s/p lumpectomy w/ sentinal node bx, s/p adjuvant chemo. On anastrazole 04/2016 - 08/2023. August 2023 had LLE DVT started on Eliquis; also recurrent dz in peritoneum, retroperitoneum, L4 vertebral body and new hypercalcemia treated w/ zometa. Started on Faslodex and Abemaciclib as second-line hormonal treatment, w/ monthly Xgeva. She was admitted here 12/19-12/26/23 for obstructive acute renal failure attributed to peritoneal carcinomatosis and w/ severe BLE edema. HF was ruled out. She had 12/21 BL ureteral stents placed. Peak creatinine 2.3, down to 1.9 by hospital d/c. On 12/29 she had OP labs remarkable for normal calcium 9.7, w/ sNa 129, K 4.3, chloride 104, bicarb 10 (sic), BUn/creat 25 and 2.2. The plan at 01/01 PCP f/u visit was for nephro appt 01/09 and renal u/s. She was not d/c on any diuretics and no medications were changed at PCP hosp d/c visit. On presentaiton yesterday 1600, creatinine was 2.8, sodium 126, bicarb 12, calcium 11.4; this am calcium is 10, creatinine 3.2, bicarb 13, sodium unchanged at 126 w/ K 4.3. serum osms 280; urine osm 240; urine Na 13. UA has 2+ protein, 3+ blood, no bacteria, 21-50 WBC; s.g. 1012. Urology has deemed her stents patent and mild R hydronephrosis unchanged and suggested evaluation for urinary retention and /or infection. She had a dose of calcitonin last evening SQ. currently she is on ceftriaxone and daily slow mag as well as a low sodium diet w/ no fluid limit. denies musculoskeletal pain or orthopnea; notes marked exertional dyspnea, minimal at rest. BLE remain edematous and tender, yaneth L. last evening was a "puke fest;" rash/redness on LLE not much changed past week and some burning/prickling there. no f/c, slight cough; no new/worrisome voiding sx. minimal po intake. Allergies Allergy/AdvReac Type Severity Reaction Status Date / Time No Known Allergies Allergy Verified 12/20/23 21:26 Home Medications Medication Instructions Recorded Confirmed Type pravastatin 80 mg tablet 80 mg PO HS 08/30/23 01/06/24 History venlafaxine 150 mg 150 mg PO HS 08/30/23 01/06/24 History capsule,extended release 24 hr acetaminophen 325 mg tablet 325 mg PO QID PRN Pain 12/20/23 01/06/24 History (Tylenol) ondansetron HCl 4 mg tablet 4 mg PO Q6 PRN Nausea 12/20/23 01/06/24 History apixaban 5 mg tablet (Eliquis) 2.5 mg (1/2 x 5 mg) PO BID #74 tabs 12/26/23 01/06/24 Rx magnesium chloride 64 mg 64 mg PO QAM 30 days #30 tabs 12/26/23 01/06/24 Rx (magnesium chloride) tablet,delayed release (Mag 64) metoprolol succinate 25 mg 12.5 mg (1/2 x 25 mg) PO BID 30 12/26/23 01/06/24 Rx tablet,extended release 24 hr days #30 tabs Patient History Medical History (Updated 01/07/24 @ 10:32 by Geeta Zaldivar MD, PhD) Emphysema/COPD History of measles CKD (chronic kidney disease) stage 3, GFR 30-59 ml/min Granuloma annulare DVT (deep venous thrombosis) History of tobacco abuse Surgical History History of cataract surgery H/O lymph node biopsy S/P partial mastectomy History of carpal tunnel surgery Family History Sister Diabetes Grandmother (Maternal) Diabetes Mother Diabetes Lung cancer Father Heart disease Social History Smoking Status: Former smoker Tobacco Type: Cigarettes Hx Alcohol Use: No Hx Substance Use: No Preferred Language: Romanian Communication Ability: Effective Office Associate Required: No Beliefs That Will Affect Care: None Current Living Situation: Alone Feels Safe at Home: Yes Safety Concerns: Feels Safe At This Time Assistive Devices: Glasses Review of Systems 2 Review of Systems: All systems reviewed & are unremarkable except as noted in HPI & below Physical Exam 2 Constitutional: well developed (lying flat in bed on RA) and well nourished; no acute distress Eyes: EOM intact bilaterally ENMT: Mouth: + dry oral mucous membranes Neck: no nuchal rigidity Respiratory: normal respiratory effort Auscultation: lungs clear to auscultation bilaterally and + diminished lung sounds Cardiovascular: Rate/Rhythm: regular rate and regular rhythm Extremities: + edema (2+ pretibial, trace distal thighs; none dependent) Gastrointestinal (Abdomen): Inspection/Auscultation: normal bowel sounds P ercussion/Palpation: abdomen soft; abdomen nontender Musculoskeletal: Extremities: strength 5/5 throughout Skin: L leg violaceous distally Neurologic: goodrich, fluent speech, no tremor Results & Data Vital Signs (Past 12 Hours) Vital Signs Temp Pulse Pulse Pulse Resp BP BP 01/07/24 07:52 01/07/24 07:47 36.6 C 82 18 88/41 L 01/07/24 03:52 36.3 C L 91 H 16 103/64 01/07/24 03:16 89 01/07/24 03:16 78 01/06/24 23:31 36.4 C L 94 H 18 124/62 01/06/24 23:08 36.5 C 87 18 120/68 Pulse Ox O2 Del Method 01/07/24 07:52 Room Air 01/07/24 07:47 95 Room Air 01/07/24 03:52 94 Room Air 01/07/24 03:16 01/07/24 03:16 01/06/24 23:31 98 Room Air 01/06/24 23:08 100 Room Air Laboratory Results 01/07/24 08:26 01/07/24 08:26 Diagnostic Findings cxr (images personally reviewed) mild congestive change w/o mauro heart failure BLE arterial duplex > No hemodynamically significant stenosis or occlusion within the bilateral lower extremity arterial systems. CT non con a/p (compared to 08/2023; images personally reviewed; agree w/ report from radiology) Emphysema with reticulonodular interstitial thickening at the lung bases. Small bilateral pleural effusions again noted. Interval progression of the anterior diaphragmatic nodularity/lymphadenopathy consistent with metastatic disease. There are few scattered subcentimeter pulmonary nodules again noted the lung bases. There is a new irregular nodular density within the base of the left lower lobe on image 22. This measures 14 mm. Metastatic disease would be the diagnosis of exclusion. No pneumoperitoneum. No pneumatosis. Multiple scattered lytic osseous lesions consistent with metastatic disease which have progressed. This includes a 16 mm lytic lesion within the left posterior 10th rib with an associated pathologic fracture. This is new compared to the prior study. There are few pathologic fractures within the right anterior sixth and eighth ribs which are likely subacute. Moderate to severe body wall edema has progressed. Paravertebral soft tissue within the lower thoracic spine has progressed and is consistent with metastatic disease. Scattered subtle hypodense lesions within the liver are new compared the prior study and likely represent metastatic disease. Dominant lesion within the left hepatic lobe measures 17 mm. The unenhanced gallbladder, pancreas, and spleen are unremarkable. Mild bilateral adrenal gland thickening persists. Bilateral ureteral stents appear and good position. Mild right hydronephrosis, unchanged. No significant left sided hydronephrosis. The bladder is not well-distended. Diffuse bladder wall thickening is noted. Suboptimal evaluation for bowel pathology due to the lack of intravenous and oral contrast. However, there is no definite bowel wall thickening or obstruction. Infiltrative retroperitoneal soft tissue has slightly progressed consistent with metastatic disease. There is scattered omental nodularity as well as perinephric nodularity with a small amount of ascites. This consistent with progression of the patient's known peritoneal carcinomatosis. A dominant left perinephric nodule on image 77 measures 15 mm. Soft tissue abnormality within the central mesentery is again noted and better appreciated on the prior study. This is consistent with metastatic disease. Apparent bladder wall thickening is likely due to the progressive peritoneal carcinomatosis. IMPRESSION: 1. Interval progression of the extensive peritoneal carcinomatosis with a small amount of ascites. 2. Interval progression of the osteolytic metastatic disease with a few pathologic fractures within the ribs. 3. Interval progression of the lower thoracic paravertebral and retroperitoneal infiltrative soft tissue consistent with metastatic disease. 4. Interval development of multiple hypodense hepatic lesions consistent with metastatic disease. 5. Mild right hydronephrosis, unchanged. The bilateral ureteral stents appear and good position. 6. No evidence for bowel obstruction. (4) Metastatic cancer Area of secondary neoplastic involvement: unspecified site Qualified Code(s): C79.9 - Secondary malignant neoplasm of unspecified site
--- NOTE | 2024-01-07 12:39 | Hospitalist Progress Note ---
Date of Service January 07, 2024 Assessment & Plan (1) Acute kidney injury: (2) Acute hyponatremia: (3) Hypercalcemia: (4) Swelling of both lower extremities: (5) Left leg cellulitis: (6) 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 breast in female, estrogen receptor positive: (7) Peritoneal carcinomatosis: (8) Metastasis to bone: (9) Metastases to the liver: Plan: Ms. 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 Recent hospitalization 12/19-12/25 2/2 lower extremity edema in setting of CHANEL from obstructive uropathy due to peritoneal mets s/p b/l ureteral stent placement by urology on 12/21. Cr peaked at 2.3 and downtrended to 1.8 after stent placement. #Bilateral lower extremity edema, likely secondary to renal failure/obstructive uropathy/progressive metastatic disease #Erythematous patch on LLE, c/f cellulitis CT ABD on 01/05 with progressive peritoneal carcinomatosis, soft tissue involvement of paravertebral/retroperitoneum, liver, kidneys, and osteolytic lesions. Spoke with Dr. Morales Rodriguez on phone 01/05: Given persistent poor renal function and poor ECOG patient is not a candidate for chemotherapy nor other oral regimens as those will likely not be of benefit ECHO 12/20 with preserved EF Plan for Palliative consult -Patient verbalizes understanding of limited options, but worries to make firm decision on next steps and wishes for discussion with sister about next steps. Patient worried about being sent to a "home" -Explain palliative and role for family discussion to help determine next feasible and "quality of life" based steps Continue Rocephin and assess resolutions Arterial duplex reviewed and negative #Hypercalcemia of malignancy 11.4 on admission, s/p calcitonin down 10 this am trend ca #CHANEL #Recent Bilateral hydronephrosis iso malignancy s/p stents 12/21 #Multiple bladder tumors Creatinine elevated 3.16 imaging with stable ureteral stents Urology:stents placed 12/21 -reviewed notes, confirmed that stents are in good place -Recommended mon, patient declined -continuing to follow Nephrology consulted -CK/lactate with next lab, with bmp q12 -Difficult to ascertain the benefit v risk of adding diuertics at this point, will continue to follow recommendations #Hyponatremia #Chronic acid base abnormality Nephrology following, chronic issue given ongoing renal dysfunction and malginant process BMP q 12 hr #Sinus tachycardia #Hx NSVT continue metoprolol 12.5mg bid #Mild transaminitis new liver lesions noted, likely iso metastatic disease #Stage IV metastatic breast cancer #Hypercalcemia of malignancy #Immunocompromised on chemo Currently on faslodex and zometa Spoke to Dr. Morales Rodriguez: see above #Hyperlipidemia On statin #General anxiety disorder On venlafaxine #History of DVT On Eliquis: dose reduced DVT prophylaxis On Eliquis Admission and Anticipated Discharge Date Admission Date: January 06, 2024 Subjective Evaluated patient at bedside Discussed conversation with Dr. Rodriguez--patient states she wishes to not make any changes until conversation with her sister is had regarding GoC She states she would be open to Palliative conversations but is too tired She denies any localizing symptoms--no chest pain, abdominal pain, main concern is fatigue and leg swelling. She states she understands everything, but doesn't know "what to do" and is worried about her sister Physical Exam Constitutional: laying in bed, conversational but notable fatigue Respiratory: normal respiratory effort, lungs clear to auscultation Cardiovascular: RRR, BLE 2+pitting edema Gastrointestinal (Abdomen): protuberant but soft and nontender Results & Data Results & Data Vital Signs (Past 12 Hours) Vital Signs Temp Pulse Pulse Resp BP Pulse Ox O2 Del Method 01/07/24 11:17 36.7 C 91 H 18 97/57 L 95 Room Air 01/07/24 09:40 91 H 01/07/24 07:52 Room Air 01/07/24 07:47 36.6 C 82 18 88/41 L 95 Room Air 01/07/24 03:52 36.3 C L 91 H 16 103/64 94 Room Air 01/07/24 03:16 89 01/07/24 03:16 78 Laboratory Results Short CBC 01/06/24 01/07/24 Range/Units 15:52 08:26 WBC 8.54 8.72 (4.8-10.8) K/ul Hgb 12.9 10.2 L (12.0-16.0) g/dl Hct 37.8 30.4 L (37.0-47.0) % Plt Count 261 256 (130-400) K/uL BMP 01/06/24 01/07/24 15:52 08:26 Sodium 126 L 126 L Potassium 4.0 4.3 Chloride 101 103 Carbon Dioxide 12 L 13 L BUN 42 H 47 H Creatinine 2.77 H 3.16 H D Glucose 80 84 Calcium 11.4 H 10.0 Liver Function 01/06/24 01/07/24 Range/Units 15:52 08:26 Total Bilirubin 0.6 0.4 (0.2-1.0) mg/dl AST 94 H 78 H (13-39) U/L ALT 28 24 (7-52) U/L Alkaline Phosphatase 241 H 204 H (34-104) U/L Albumin 4.0 3.3 L (3.4-5.0) gm/dl Urine 01/06/24 Range/Units 22:37 Urine Color Yellow Urine Appearance Cloudy A (Clear) Urine pH 5.5 (4.5-7.5) Ur Specific [place] 1.012 (1.000-1.030) Urine Protein 2+ H (Negative) Urine Glucose (UA) Negative (Negative) Diagnostic Findings Duplex Scan Lower Extremity Artery 01/07/24 00:00 US arterial duplex LE BI CLINICAL HISTORY: eval for arterial disease, diminished pulse. Lower extremity redness. COMPARISON STUDY: None. FINDINGS: There are normal biphasic to triphasic waveforms and velocities seen throughout the majority of the bilateral lower extremity arterial systems. There are few scattered areas of monophasic normal velocity waveforms seen within the calf arteries with normal velocities. This suggests mild diffuse atherosclerotic disease. There is associated scattered calcified plaque. No evidence for significant stenosis or occlusion. IMPRESSION: No hemodynamically significant stenosis or occlusion within the bilateral lower extremity arterial systems. ACT 112: Negative or not required by law. Electronically signed by: Ramsey Hunt M.D. 01/07/2024 8:[address] AB 01/05 1. Interval progression of the extensive peritoneal carcinomatosis with a small amount of ascites. 2. Interval progression of the osteolytic metastatic disease with a few pathologic fractures within the ribs. 3. Interval progression of the lower thoracic paravertebral and retroperitoneal infiltrative soft tissue consistent with metastatic disease. 4. Interval development of multiple hypodense hepatic lesions consistent with metastatic disease. 5. Mild right hydronephrosis, unchanged. The bilateral ureteral stents appear and good position. 6. No evidence for bowel obstruction. 7. Additional findings as described above. Medications Administered Home Medications Medication Instructions Recorded Confirmed Last Taken pravastatin 80 mg tablet 80 mg PO HS 08/30/23 01/06/24 08/29/23 venlafaxine 150 mg 150 mg PO HS 08/30/23 01/06/24 08/29/23 capsule,extended release 24 hr acetaminophen 325 mg tablet 325 mg PO QID PRN Pain 12/20/23 01/06/24 Unknown (Tylenol) ondansetron HCl 4 mg tablet 4 mg PO Q6 PRN Nausea 12/20/23 01/06/24 Unknown apixaban 5 mg tablet (Eliquis) 2.5 mg (1/2 x 5 mg) PO BID #74 tabs 12/26/23 01/06/24 12/20/23 07:00 magnesium chloride 64 mg 64 mg PO QAM 30 days #30 tabs 12/26/23 01/06/24 Unknown (magnesium chloride) tablet,delayed release (Mag 64) metoprolol succinate 25 mg 12.5 mg (1/2 x 25 mg) PO BID 30 12/26/23 01/06/24 Unknown tablet,extended release 24 hr days #30 tabs Active Medications Generic Name Dose Route Start Last Admin Trade Name Freq PRN Reason Stop Dose Admin Acetaminophen 650 mg 01/06/24 20:30 01/07/24 03:01 Acetaminophen 325 Mg Tab PO 02/05/24 20:29 650 mg Q4H PRN Administration Pain or Fever Apixaban 2.5 mg 01/06/24 21:00 01/07/24 08:00 Apixaban 2.5 Mg Tab PO 02/05/24 20:59 2.5 mg BID SHAILA Administration Ceftriaxone Sodium 2,000 mg in 50 mls @ 100 mls/hr 01/06/24 18:30 01/06/24 21:24 Rocephin IV 01/13/24 18:29 Infused Q24H SHAILA Infusion Magnesium Chloride 64 mg 01/07/24 09:00 01/07/24 08:01 Magnesium Chloride W/Calcium 64mg Delayed Rel Tab PO 02/06/24 08:59 64 mg QAM SHAILA Administration Metoprolol Succinate 12.5 mg 01/06/24 21:00 01/07/24 08:00 Metoprolol Succ 25mg Ext Rel Tab PO 02/05/24 20:59 Not Given BID SHAILA Ondansetron HCl 4 mg 01/06/24 20:30 01/06/24 22:24 Ondansetron Inj 2 Mg/Ml 2 Ml Vial IV 02/05/24 20:29 4 mg Q6H PRN Administration Nausea Polyethylene Glycol 17 gm 01/07/24 09:00 01/07/24 08:59 Polyethylene (Miralax) 17 Gm Pack PO 02/06/24 08:59 17 gm DAILY SHAILA Administration Pravastatin Sodium 80 mg 01/06/24 21:00 01/06/24 21:12 Pravastatin Sod 40 Mg Tab PO 02/05/24 20:59 80 mg HS SHAILA Administration Venlafaxine HCl 150 mg 01/06/24 21:00 01/06/24 21:11 Venlafaxine Hcl Xr 150 Mg Capxr PO 02/05/24 20:59 150 mg HS SHAILA Administration
--- NOTE | 2024-01-07 14:40 | Urology Progress Note ---
Date of Service January 07, 2024 Assessment & Plan (1) Bilateral hydronephrosis: (2) Renal failure: Plan: Follow-up of bilateral hydronephrosis Patient with metastatic breast cancer and peritoneal carcinomatosis that is suspected to be causing bilateral ureteral obstruction She is s/p cystoscopy and bilateral ureteral stent placement on 12/22/[address] Brar Her creatinine is rising, 3.16 today (previously 2.77); no leukocytosis, Hgb 10.2continue to trend labs CT abdomen pelvis shows bilateral ureteral stents in good position No acute intervention warranted Nephrology followingconservative management and palliative consult discussed Continue supportive care and medical management per primary service Will keep outpatient urology follow-up as scheduled Gu will sign off, please contact our service with any additional questions Admission and Anticipated Discharge Date Admission Date: January 06, 2024 Subjective Patient seen and examined at bedside this afternoon. She is awake and resting in bed. She reports fatigue and low appetite. No pain. She is voiding without difficulty. No dysuria or hematuria. Review of Systems Constitutional: as per Subjective / HPI Genitourinary: as per Subjective / HPI Physical Exam Constitutional: no acute distress Respiratory: no respiratory distress and no labored breathing Cardiovascular: Extremities: + edema (bilateral lower extremities) Musculoskeletal: Head/Neck/Chest: normocephalic Neurologic: moves all extremities and awake Psychiatric: Orientation: alert and oriented x 3 Results & Data Vital Signs (Past 12 Hours) Vital Signs Temp Pulse Pulse Resp BP Pulse Ox O2 Del Method 01/07/24 11:17 36.7 C 91 H 18 97/57 L 95 Room Air 01/07/24 09:40 91 H 01/07/24 07:52 Room Air 01/07/24 07:47 36.6 C 82 18 88/41 L 95 Room Air 01/07/24 03:52 36.3 C L 91 H 16 103/64 94 Room Air 01/07/24 03:16 89 01/07/24 03:16 78 PG Care Time/CCT Total # of Minutes Spent Total Time Spent with Patient: Total time spent is greater than 50% in coordination of care (as documented) at patient's floor/unit and/or counseling patient: Coding Level of Care Code 59905 SUB INP/OBS CARE 25MIN Diagnoses Bilateral hydronephrosis N13.30 Renal failure N17.9; N18.9 Acute renal failure type: unspecified Chronic kidney disease stage: unspecified stage Renal failure chronicity: acute on chronic (2) Renal failure Acute renal failure type: unspecified Chronic kidney disease stage: unspecified stage Renal failure chronicity: acute on chronic Qualified Code(s): N17.9 - Acute kidney failure, unspecified; N18.9 - Chronic kidney disease, unspecified
[2024-01-07 16:20] LABS: Base Excess VBG -16.4 mEq/L; HCO3 VBG 11 mmol/L; Oxygen Saturation VBG 98.6 %; PCO2 VBG 28 mmHg (38-50); PO2 VBG 92 mmHg; pH VBG 7.18 (7.36-7.41)
[2024-01-07 16:44] LABS: Calcium 9.6 mg/dl (8.6-10.3); Potassium 4.1 mmol/L (3.5-5.1)
[2024-01-07 16:50] LABS: BUN Creatinine Ratio 14.8 (10-20); Creatinine Clr Calc Pharmacy 12.6 ml/min; Est GFR (African American) 14.9 ml/min; Est GFR (Non-African American) 12.8 ml/min
[2024-01-07 17:32] LABS: Creatinine Urine Random 83.6 mg/dl; Protein Creatinine Ratio Urine 2.3 (0-0.2); Total Protein Urine Random 193.4 mg/dl (0-11.9)
[2024-01-08 07:21] LABS: Hematocrit (blood only) 27.5 % (37.0-47.0); Hemoglobin 9.6 g/dl (12.0-16.0); Mean Corpuscular Hemoglobin 30.4 pg (25.0-34.0); Mean Corpuscular Hgb Conc 34.9 g/dL (32.0-36.0); Mean Platelet Volume 9.8 fL (9.4-12.4); Nucleated RBC # (auto) 0.02 K/uL (0.00-0.12); Nucleated RBC % (auto) 0.2 %; Platelet Count 261 K/uL (130-400); RDW Coefficient of Variation 16.7 % (11.5-14.5); RDW Standard Deviation 52.4 fL (36.4-46.3); Red Blood Count 3.16 M/uL (4.20-5.40); White Blood Count 10.13 K/ul (4.8-10.8)
[2024-01-08 07:34] LABS: Albumin Globulin Ratio 1.1 (0.9-2); Albumin Level 3.1 gm/dl (3.4-5.0); BUN Creatinine Ratio 15.3 (10-20); Bilirubin,Total 0.4 mg/dl (0.2-1.0); Calcium 9.6 mg/dl (8.6-10.3); Est GFR (African American) 14.1 ml/min; Est GFR (Non-African American) 12.2 ml/min; Globulin 2.8 gm/dl (2.5-4.0); Magnesium 2.2 mg/dl (1.7-2.4); Phosphorus 4.3 mg/dl (2.5-4.9); Potassium 3.8 mmol/L (3.5-5.1); Total Protein 5.9 gm/dl (6.0-8.3)
--- NOTE | 2024-01-08 12:34 | Palliative Care Consultation ---
Date of Consultation January 08, 2024 Assessment & Plan (1) Weakness generalized: (2) Advanced care planning/counseling discussion: I met face to face with pt at bedside for 45min for this ACP discussion She tells me about her cancer journey and the pride she feels in having retained her independence. She lives in her own home, a one story ranch and her sister/brother in law live next door. Her was an amputee and she cared for him until his . They built a handicapped accessible home and it has a lot of supportive safety features including assistive built in shower seating, hand rails etc. She wants to return home if at all possible. Her sister supports this wish per her report. We discussed hospice at home and she is interested in this dc plan. We agreed to a family meeting tomorrow afternoon or Saturday morning when sister can be here for further discussion and to assure sister in comfortable with hospice as the plan. (3) Cancer related pain: (4) Chemotherapy-induced neuropathy: (5) Palliative care by specialist: Introduced Palliative Medicine and explained our role in patient's care. Patient and/or family were receptive to palliative services for goals of care discussions. Reviewed we are different from hospice, a home health nurse visiting service. Plan As above Thank you for allowing us to participate in the ongoing care of this patient. Please page with any additional concerns. Jeet Lao DNP Director, Palliative Medicine History of Present Illness Reason for Consultation: metastatic dz, no tx options, pt conflicted Attending Physician: Hermes Torres MD History of Present Illness Kianna is a 78yo female w/past medical history significant for hyperlipidemia, hypercalcemia, stage IV breast cancer metastatic to liver and peritoneal carcinomatosis and metastatic to bone, chemotherapy induced neuropathy, DVT, general anxiety admitted with rpogressive BLE weakness that she reports has been worsening for months along with BLE edema and dyspnea. It has been noted that her metastatic breast cancer has progressed to liver, bone and peritoneal carcinomatosis. CT AP 01/05 revealed: 1. Interval progression of the extensive peritoneal carcinomatosis with a small amount of ascites. 2. Interval progression of the osteolytic metastatic disease with a few pathologic fractures within the ribs. 3. Interval progression of the lower thoracic paravertebral and retroperitoneal infiltrative soft tissue consistent with metastatic disease. 4. Interval development of multiple hypodense hepatic lesions consistent with metastatic disease. 5. Mild right hydronephrosis, unchanged. The bilateral ureteral stents appear and good position. 6. No evidence for bowel obstruction. Recent hospitalization 12/19-12/25 2/2 lower extremity edema in setting of CHANEL from obstructive uropathy due to peritoneal mets s/p b/l ureteral stent placement by urology on 12/21. Cr peaked at 2.3 and downtrended to 1.8 after stent placement. She was discharged and after few days her SOB and swelling worsening, along with significant fatigue, early satiety, decreased urine frequency or bowel movement and worsened lower extremity redness. Per admitting note: Diagnosed with left breast lobular carcinoma in 2014 s/p lumpectomy and sentinel lymph node biopsy, s/p adjuvant chemo (ER 100%, MI negative, Her-2 negatve). Stage IIb at diagnosis. Received anastrozole Apr 2016-August suspected to have recurrence of disease involving the peritoneum, retroperitoneal region, bone (L4 vertebral body). Also found to have hypercalcemia at this time and was started on Zometa. 08/30/23 LLE DVT started on long-term anticoagulation with Eliquis Started on Faslodex and Abemaciclib as second-line hormonal treatment, Xgeva every 4 weeks. Patient recently hospitalized 12/19 to 12/26/2023 secondary to bilateral lower extremity edema secondary to acute renal failure in setting of obstructive uropathy. Acute heart failure have been ruled out. She had a normal echocardiogram with preserved EF. Her Eliquis was reduced to 2.5 mg twice daily due to an uptrend in her renal function. Urology was on board and she underwent bilateral ureteral stent placement on 12/21 as urology felt her CHANEL was in partial due to obstructive uropathy due to obstruction from peritoneal carcinomatosis. She was initially treated with IV diuretics and has had since stopped. Nephrology was on board managing CHANEL and creatinine peaked at 2.3 and trended down to 1.8 on day of discharge. She was discharged home with appropriate follow-ups. She reports having zero energy. It takes her 1 hr to do something that she could do in 10 minutes. She has been more short of breath. She denies any coughing or chest pain. She denies any abdominal pain but is unable to eat. She has an appetite but when she starts eating she gets bloated and feels full quickly. She vomits easily if she feels full. She is not moving her bowels regularly and she feels constipated. She had a very small BM this morning. She is making urine but very small volume. She denies dysuria or hematuria. She complains of redness to her L leg that started shortly after she was discharged. She feels her swelling has been progressively getting worse. SHe has chemo induced neuropathy and therefore doesn't have feeling in her legs. In ED patient had evidence of worsening BUN and creatinine at 42 and 2.77 with a sodium of 126. Her calcium is elevated 11.4. She did have a mild elevation of troponin at 16.9 without any ischemic EKG changes. Her chest x-ray revealed mild congestive change but no overt heart failure. CT abdomen pelvis reveal interval progression of extensive metastatic disease, please refer to formal report. Her bilateral ureteral stents do appear to be in good position with unchanged mild right hydronephrosis. Allergies Allergy/AdvReac Type Severity Reaction Status Date / Time No Known Allergies Allergy Verified 12/20/23 21:26 Home Medications Medication Instructions Recorded Confirmed Type pravastatin 80 mg tablet 80 mg PO HS 08/30/23 01/06/24 History venlafaxine 150 mg 150 mg PO HS 08/30/23 01/06/24 History capsule,extended release 24 hr acetaminophen 325 mg tablet 325 mg PO QID PRN Pain 12/20/23 01/06/24 History (Tylenol) ondansetron HCl 4 mg tablet 4 mg PO Q6 PRN Nausea 12/20/23 01/06/24 History apixaban 5 mg tablet (Eliquis) 2.5 mg (1/2 x 5 mg) PO BID #74 tabs 12/26/23 01/06/24 Rx magnesium chloride 64 mg 64 mg PO QAM 30 days #30 tabs 12/26/23 01/06/24 Rx (magnesium chloride) tablet,delayed release (Mag 64) metoprolol succinate 25 mg 12.5 mg (1/2 x 25 mg) PO BID 30 12/26/23 01/06/24 Rx tablet,extended release 24 hr days #30 tabs Patient History Medical History (Updated 01/08/24 @ 18:37 by Vannesa Lao DNP) Emphysema/COPD History of measles CKD (chronic kidney disease) stage 3, GFR 30-59 ml/min Granuloma annulare DVT (deep venous thrombosis) History of tobacco abuse Surgical History History of cataract surgery H/O lymph node biopsy S/P partial mastectomy History of carpal tunnel surgery Family History Sister Diabetes Grandmother (Maternal) Diabetes Mother Diabetes Lung cancer Father Heart disease Social History Smoking Status: Former smoker Tobacco Type: Cigarettes Hx Alcohol Use: No Hx Substance Use: No Preferred Language: [place]an Communication Ability: Effective [employer] Supervisor Required: No Beliefs That Will Affect Care: None Current Living Situation: Alone Feels Safe at Home: Yes Safety Concerns: Feels Safe At This Time Assistive Devices: None Review of Systems 2 Review of Systems: All systems reviewed & are unremarkable except as noted in Subjective Physical Exam Physical Exam: elderly female, lying on right side in bed bitemp wasting perrla eomi's neck supple, no stridor no conversational dyspnea, no use of accessory muscles; breath sounds diminished s1s2 abd soft,NT BLE gen weakness, 2+edema BLE AAOx3 Skin pale, warm Results & Data Vital Signs (Past 12 Hours) Vital Signs Temp Pulse Pulse Resp BP Pulse Ox O2 Del Method 01/08/24 11:15 36.4 C L 81 18 96/57 L 96 Room Air 01/08/24 07:38 Room Air 01/08/24 07:28 90 01/08/24 07:05 36.4 C L 81 18 98/48 L 95 Room Air 01/08/24 02:29 36.4 C L 86 18 110/65 93 Room Air PG Care Time/CCT Total # of Minutes Spent Total Time Spent with Patient: Total time spent is greater than 50% in coordination of care (as documented) at patient's floor/unit and/or counseling patient: I spent 100 minutes overall addressing this case: 15 min in medical data review/discussion with referring provider(s) and/or preparation for the visit 15 min in direct interaction with the patient/exam 45 min in Advance Care Planning/Goals of Care discussions as detailed above in note (must be >16min) 10 min in subsequent review and synthesis of assessment and plan 15 min communicating with other providers regarding the patient's case: primary team Advanced Care Planning [id number] Advanced Care Planning 30 Min 93027 Advanced Care Planning Additional 30 [place] [address] IN/OBS CONSULT LVL 4,60M (25 - SIGNIFICANT, SEPARATELY IDENTIFIABLE ) Patient Type New Diagnoses Weakness generalized R53.1 Advanced care planning/counseling discussion Z71.89 Cancer related pain G89.3 Chemotherapy-induced neuropathy G62.0; T45.1X5A Palliative care by specialist Z51.5 Additional Codes Advanced Care Planning - 06273 Advanced Care Planning 30 Min: 77628 Advanced Care Planning 30 Min ([id number]) Advanced Care Planning - 47972 Advanced Care Planning Additional 30 Min: 64586 Advanced Care Planning Additional 30 Min ([id number])
--- NOTE | 2024-01-08 14:02 | Nephrology Progress Note ---
Date of Service January 08, 2024 Assessment & Plan Admission and Anticipated Discharge Date Admission Date: January 06, 2024 Subjective Assessment & Plan (1) Acute kidney injury: nonoliguric rapidly progressive CHANEL on rapidly progressive CKD. quantify proteinuria, though stents in place will skew this strict I/O Daily bmp . Renal function continues to get worse with a rising creatinine sodium is still low continue nephrotoxin avoidance reviewed hospitalist note regarding communication with her oncologist. As per the note she does not have any treatment options for her metastatic and aggressively progressive cancer. renal function continues to get worse but she can not get dialysis given that she has terminal untreatable metastatic cancer. Palliative Medicine consult is very reasonable. S--Feels tired. no new issues. Was seen by Palliative Medicine also Physical Exam Constitutional: well developed (lying flat in bed on RA) and well nourished; no acute distress Eyes: EOM intact bilaterally ENMT: Mouth: + dry oral mucous membranes Neck: no nuchal rigidity Respiratory: normal respiratory effort Auscultation: lungs clear to auscultation bilaterally and + diminished lung sounds Cardiovascular: Rate/Rhythm: regular rate and regular rhythm Extremities: + edema (2+ pretibial, trace distal thighs; none dependent) Gastrointestinal (Abdomen): Inspection/Auscultation: normal bowel sounds Percussion/Palpation: abdomen soft; abdomen nontender Musculoskeletal: Extremities: strength 5/5 throughout Skin: L leg violaceous distally Neurologic: [place], fluent speech, no tremor Results & Data Vital Signs (Past 12 Hours) Vital Signs Temp Pulse Pulse Resp BP Pulse Ox O2 Del Method 01/08/24 11:15 36.4 C L 81 18 96/57 L 96 Room Air 01/08/24 07:38 Room Air 01/08/24 07:28 90 01/08/24 07:05 36.4 C L 81 18 98/48 L 95 Room Air 01/08/24 02:29 36.4 C L 86 18 110/65 93 Room Air
--- NOTE | 2024-01-08 15:08 | Hospitalist Progress Note ---
Date of Service January 08, 2024 Assessment & Plan (1) Acute renal failure: (2) Acute hyponatremia: Plan: per previous hospitalist notes with addendum: (1) Acute kidney injury: (2) Acute hyponatremia: (3) Hypercalcemia: (4) Swelling of both lower extremities: (5) Left leg cellulitis: (6) 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 breast in female, estrogen receptor positive: (7) Peritoneal carcinomatosis: (8) Metastasis to bone: (9) Metastases to the liver: Plan: Ms. 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 Recent hospitalization 12/19-12/25 2/2 lower extremity edema in setting of CHANEL from obstructive uropathy due to peritoneal mets s/p b/l ureteral stent placement by urology on 12/21. Cr peaked at 2.3 and downtrended to 1.8 after stent placement. #Bilateral lower extremity edema, likely secondary to renal failure/obstructive uropathy/progressive metastatic disease #Erythematous patch on LLE, c/f cellulitis CT ABD on 01/05 with progressive peritoneal carcinomatosis, soft tissue involvement of paravertebral/retroperitoneum, liver, kidneys, and osteolytic lesions. Spoke with Dr. Morales Rodriguez on phone 01/05: Given persistent poor renal function and poor ECOG patient is not a candidate for chemotherapy nor other oral regimens as those will likely not be of benefit ECHO 12/20 with preserved EF Plan for Palliative consult -Patient verbalizes understanding of limited options, but worries to make firm decision on next steps and wishes for discussion with sister about next steps. Patient worried about being sent to a "home" -Explain palliative and role for family discussion to help determine next feasible and "quality of life" based steps Continue Rocephin and assess resolutions Arterial duplex reviewed and negative 01/07 Possible cellulitis of the left lower leg and foot Transition from IV ceftriaxone to IV cefazolin Monitor closely #Hypercalcemia of malignancy 11.4 on admission, s/p calcitonin down 10 this am trend ca 01/07 Ca 9.6 #CHANEL #Recent Bilateral hydronephrosis iso malignancy s/p stents 12/21 #Multiple bladder tumors Creatinine elevated 3.16 imaging with stable ureteral stents Urology:stents placed 12/21 -reviewed notes, confirmed that stents are in good place -Recommended mon, patient declined -continuing to follow Nephrology consulted -CK/lactate with next lab, with bmp q12 -Difficult to ascertain the benefit v risk of adding diuertics at this point, will continue to follow recommendations 01/07 Creatinine 3.3, today 3.4 Likely secondary to metastatic cancer Nephrology service on board #Hyponatremia #Chronic acid base abnormality Nephrology following, chronic issue given ongoing renal dysfunction and malginant process BMP q 12 hr Na 128 #Sinus tachycardia #Hx NSVT continue metoprolol 12.5mg bid #Mild transaminitis new liver lesions noted, likely iso metastatic disease #Stage IV metastatic breast cancer #Hypercalcemia of malignancy #Immunocompromised on chemo Currently on faslodex and zometa Spoke to Dr. Morales Rodriguez: see above Palliative care service consulted Discussion with patient and family in progress Likely to transition to hospice #Hyperlipidemia On statin #General anxiety disorder On venlafaxine #History of DVT On Eliquis: dose reduced DVT prophylaxis On Eliquis Admission and Anticipated Discharge Date Admission Date: January 06, 2024 Subjective Follow-up for acute renal failure, metastatic breast cancer, etc. Seen sitting up in bed, comfortable, not in distress Patient's sister and [id number] at the bedside visiting States she feels okay overall No nausea vomiting, abdominal pain, problems with voiding Reports some pain and continued swelling over the left lower leg No other new symptoms Review of Systems Review of Systems: all noted and negative except for above Physical Exam Physical Exam: General- oriented x 3, not in distress, speaks in sentences with no effort or accessory muscle use Eyes- anicteric Neck- no JVD Lungs- clear breath sounds bilaterally, no crackles, no wheezing Heart- normal rate, regular rhythm; no murmurs Abdomen- normal bowel sounds, nondistended, soft, nontender Extremities- Right lower extremity:no pretibial edema, no calf tenderness Left lower extremity: Foot-moderate edema, moderate erythema, mild warmth, mild tenderness over the dorsal aspect Left lower leg-moderate edema, moderate erythema, mild warmth, mild tenderness over the anterior aspect Neuro- alert, oriented x 3; no gross focal neurologic deficits Skin- warm & dry Results & Data Results & Data Vital Signs (Past 12 Hours) Vital Signs Temp Pulse Pulse Resp BP Pulse Ox O2 Del Method 01/08/24 11:15 36.4 C L 81 18 96/57 L 96 Room Air 01/08/24 07:38 Room Air 01/08/24 07:28 90 01/08/24 07:05 36.4 C L 81 18 98/48 L 95 Room Air all noted and reviewed including below
[2024-01-08] MEDS: ceFAZolin 1000MG 1,000 MG/7.5 ML SYR IV SCH (15:22)
--- NOTE | 2024-01-09 09:40 | Oncology Consultation ---
Date of Consultation January 09, 2024 History of Present Illness Attending Physician: Hermes Torres MD Allergies Allergy/AdvReac Type Severity Reaction Status Date / Time No Known Allergies Allergy Verified 12/20/23 21:26 Home Medications Medication Instructions Recorded Confirmed Type pravastatin 80 mg tablet 80 mg PO HS 08/30/23 01/06/24 History venlafaxine 150 mg 150 mg PO HS 08/30/23 01/06/24 History capsule,extended release 24 hr acetaminophen 325 mg tablet 325 mg PO QID PRN Pain 12/20/23 01/06/24 History (Tylenol) ondansetron HCl 4 mg tablet 4 mg PO Q6 PRN Nausea 12/20/23 01/06/24 History apixaban 5 mg tablet (Eliquis) 2.5 mg (1/2 x 5 mg) PO BID #74 tabs 12/26/23 01/06/24 Rx magnesium chloride 64 mg 64 mg PO QAM 30 days #30 tabs 12/26/23 01/06/24 Rx (magnesium chloride) tablet,delayed release (Mag 64) metoprolol succinate 25 mg 12.5 mg (1/2 x 25 mg) PO BID 30 12/26/23 01/06/24 Rx tablet,extended release 24 hr days #30 tabs Patient History Medical History (Updated 01/08/24 @ 18:37 by Vannesa Lao DNP) Emphysema/COPD History of measles CKD (chronic kidney disease) stage 3, GFR 30-59 ml/min Granuloma annulare DVT (deep venous thrombosis) History of tobacco abuse Surgical History History of cataract surgery H/O lymph node biopsy S/P partial mastectomy History of carpal tunnel surgery Family History Sister Diabetes Grandmother (Maternal) Diabetes Mother Diabetes Lung cancer Father Heart disease Social History Smoking Status: Former smoker Tobacco Type: Cigarettes Hx Alcohol Use: No Hx Substance Use: No Preferred Language: Wolof Communication Ability: Effective Senior Nuclear Medicine Technologist Required: No Beliefs That Will Affect Care: None Current Living Situation: Alone Feels Safe at Home: Yes Safety Concerns: Feels Safe At This Time Assistive Devices: None Results & Data Vital Signs (Past 12 Hours) Vital Signs Temp Pulse Pulse Resp BP Pulse Ox O2 Del Method 01/09/24 08:40 36.4 C L 80 20 117/67 96 Room Air 01/09/24 07:14 76 01/09/24 03:00 36.4 C L 83 16 103/55 L 94 Room Air 01/08/24 22:25 78 01/08/24 22:18 36.4 C L 80 16 108/48 L 94 Room Air
[2024-01-09 09:47] LABS: BUN Creatinine Ratio 15.9 (10-20); Calcium 10.8 mg/dl (8.6-10.3); Creatinine Clr Calc Pharmacy 11.1 ml/min; Est GFR (Non-African American) 11.2 ml/min; Potassium 3.9 mmol/L (3.5-5.1)
--- NOTE | 2024-01-09 17:03 | Hospitalist Progress Note ---
Date of Service January 09, 2024 Assessment & Plan (1) Acute renal failure: (2) Acute hyponatremia: Plan: per previous hospitalist notes with addendum: (1) Acute kidney injury: (2) Acute hyponatremia: (3) Hypercalcemia: (4) Swelling of both lower extremities: (5) Left leg cellulitis: (6) 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 breast in female, estrogen receptor positive: (7) Peritoneal carcinomatosis: (8) Metastasis to bone: (9) Metastases to the liver: Plan: Ms. 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 Recent hospitalization 12/19-12/25 2/2 lower extremity edema in setting of CHANEL from obstructive uropathy due to peritoneal mets s/p b/l ureteral stent placement by urology on 12/21. Cr peaked at 2.3 and downtrended to 1.8 after stent placement. #Bilateral lower extremity edema, likely secondary to renal failure/obstructive uropathy/progressive metastatic disease #Erythematous patch on LLE, c/f cellulitis CT ABD on 01/05 with progressive peritoneal carcinomatosis, soft tissue involvement of paravertebral/retroperitoneum, liver, kidneys, and osteolytic lesions. Spoke with Dr. Morales Rodriguez on phone 01/05: Given persistent poor renal function and poor ECOG patient is not a candidate for chemotherapy nor other oral regimens as those will likely not be of benefit ECHO 12/20 with preserved EF Plan for Palliative consult -Patient verbalizes understanding of limited options, but worries to make firm decision on next steps and wishes for discussion with sister about next steps. Patient worried about being sent to a "home" -Explain palliative and role for family discussion to help determine next feasible and "quality of life" based steps Continue Rocephin and assess resolutions Arterial duplex reviewed and negative 01/07 Possible cellulitis of the left lower leg and foot Transition from IV ceftriaxone to IV cefazolin Monitor closely #Hypercalcemia of malignancy 11.4 on admission, s/p calcitonin down 10 this am trend ca 01/07 Ca 9.6 #CHANEL #Recent Bilateral hydronephrosis iso malignancy s/p stents 12/21 #Multiple bladder tumors Creatinine elevated 3.16 imaging with stable ureteral stents Urology:stents placed 12/21 -reviewed notes, confirmed that stents are in good place -Recommended mon, patient declined -continuing to follow Nephrology consulted -CK/lactate with next lab, with bmp q12 -Difficult to ascertain the benefit v risk of adding diuertics at this point, will continue to follow recommendations 01/07 Creatinine 3.3, today 3.4 Likely secondary to metastatic cancer Nephrology service on board #Hyponatremia #Chronic acid base abnormality Nephrology following, chronic issue given ongoing renal dysfunction and malginant process BMP q 12 hr Na 128 #Sinus tachycardia #Hx NSVT continue metoprolol 12.5mg bid #Mild transaminitis new liver lesions noted, likely iso metastatic disease #Stage IV metastatic breast cancer #Hypercalcemia of malignancy #Immunocompromised on chemo Currently on faslodex and zometa Spoke to Dr. Morales Rodriguez: see above Palliative care service consulted Discussion with patient and family in progress Likely to transition to hospice #Hyperlipidemia On statin #General anxiety disorder On venlafaxine #History of DVT On Eliquis: dose reduced DVT prophylaxis On Eliquis Admission and Anticipated Discharge Date Admission Date: January 08, 2024 Results & Data Results & Data Vital Signs (Past 12 Hours) Vital Signs Temp Pulse Pulse Resp BP Pulse Ox O2 Del Method 01/09/24 15:03 34.4 C L 86 14 118/68 94 Room Air 01/09/24 12:22 34.5 C L 72 17 105/62 94 Room Air 01/09/24 11:08 36.5 C 69 20 99/54 L 96 Room Air 01/09/24 08:40 36.4 C L 80 20 117/67 96 Room Air 01/09/24 07:14 78
[2024-01-10 06:17] LABS: Calcium 10.6 mg/dl (8.6-10.3); Potassium 4.3 mmol/L (3.5-5.1)
[2024-01-10 06:22] LABS: BUN Creatinine Ratio 16.3 (10-20); Creatinine Clr Calc Pharmacy 10.4 ml/min; Est GFR (African American) 11.9 ml/min; Est GFR (Non-African American) 10.3 ml/min
--- NOTE | 2024-01-10 15:39 | Discharge Summary ---
Discharge Summary Date of Service January 10, 2024 Principal Dx & Hospital Course #1 = Principal Diagnosis (1) Acute renal failure: (2) Acute hyponatremia: per previous hospitalist notes with addendum: (1) Acute kidney injury: (2) Acute hyponatremia: (3) Hypercalcemia: (4) Swelling of both lower extremities: (5) Left leg cellulitis: (6) 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 breast in female, estrogen receptor positive: (7) Peritoneal carcinomatosis: (8) Metastasis to bone: (9) Metastases to the liver: Plan: Ms. 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 Recent hospitalization 12/19-12/25 2/2 lower extremity edema in setting of CHANEL from obstructive uropathy due to peritoneal mets s/p b/l ureteral stent placement by urology on 12/21. Cr peaked at 2.3 and downtrended to 1.8 after stent placement. #Bilateral lower extremity edema, likely secondary to renal failure/obstructive uropathy/progressive metastatic disease #Erythematous patch on LLE, c/f cellulitis CT ABD on 01/05 with progressive peritoneal carcinomatosis, soft tissue involvement of paravertebral/retroperitoneum, liver, kidneys, and osteolytic lesions. Spoke with Dr. Morales Rodriguez on phone 01/05: Given persistent poor renal function and poor ECOG patient is not a candidate for chemotherapy nor other oral regimens as those will likely not be of benefit ECHO 12/20 with preserved EF Plan for Palliative consult -Patient verbalizes understanding of limited options, but worries to make firm decision on next steps and wishes for discussion with sister about next steps. Patient worried about being sent to a "home" -Explain palliative and role for family discussion to help determine next feasible and "quality of life" based steps Continue Rocephin and assess resolutions Arterial duplex reviewed and negative 01/07 Possible cellulitis of the left lower leg and foot Transition from IV ceftriaxone to IV cefazolin Monitor closely #Hypercalcemia of malignancy 11.4 on admission, s/p calcitonin down 10 this am trend ca 01/07 Ca 9.6 #CHANEL #Recent Bilateral hydronephrosis iso malignancy s/p stents 12/21 #Multiple bladder tumors Creatinine elevated 3.16 imaging with stable ureteral stents Urology:stents placed 12/21 -reviewed notes, confirmed that stents are in good place -Recommended mon, patient declined -continuing to follow Nephrology consulted -CK/lactate with next lab, with bmp q12 -Difficult to ascertain the benefit v risk of adding diuertics at this point, will continue to follow recommendations 01/07 Creatinine 3.3, today 3.4 Likely secondary to metastatic cancer Nephrology service on board #Hyponatremia #Chronic acid base abnormality Nephrology following, chronic issue given ongoing renal dysfunction and malginant process BMP q 12 hr Na 128 #Sinus tachycardia #Hx NSVT continue metoprolol 12.5mg bid #Mild transaminitis new liver lesions noted, likely iso metastatic disease #Stage IV metastatic breast cancer #Hypercalcemia of malignancy #Immunocompromised on chemo Currently on faslodex and zometa Spoke to Dr. 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 Of significance: Diagnosed with left breast lobular carcinoma in 2014 s/p lumpectomy and sentinel lymph node biopsy, s/p adjuvant chemo (ER 100%, SD negative, Her-2 negatve). Stage IIb at diagnosis. Received anastrozole Apr 2016-August suspected to have recurrence of disease involving the peritoneum, retroperitoneal region, bone (L4 vertebral body). Also found to have hypercalcemia at this time and was started on Zometa. 08/30/23 LLE DVT started on long-term anticoagulation with Eliquis Started on Faslodex and Abemaciclib as second-line hormonal treatment, Xgeva every 4 weeks. Patient recently hospitalized 12/19 to 12/26/2023 secondary to bilateral lower extremity edema secondary to acute renal failure in setting of obstructive uropathy. Acute heart failure have been ruled out. She had a normal echocardiogram with preserved EF. Her Eliquis was reduced to 2.5 mg twice daily due to an uptrend in her renal function. Urology was on board and she underwent bilateral ureteral stent placement on 12/21 as urology felt her CHANEL was in partial due to obstructive uropathy due to obstruction from peritoneal carcinomatosis. She was initially treated with IV diuretics and has had since stopped. Nephrology was on board managing CHANEL and creatinine peaked at 2.3 and trended down to 1.8 on day of discharge. She was discharged home with appropriate follow-ups. She reports having zero energy. It takes her 1 hr to do something that she could do in 10 minutes. She has been more short of breath. She denies any coughing or chest pain. She denies any abdominal pain but is unable to eat. She has an appetite but when she starts eating she gets bloated and feels full quickly. She vomits easily if she feels full. She is not moving her bowels regularly and she feels constipated. She had a very small BM this morning. She is making urine but very small volume. She denies dysuria or hematuria. She complains of redness to her L leg that started shortly after she was discharged. She feels her swelling has been progressively getting worse. SHe has chemo induced neuropathy and therefore doesn't have feeling in her legs. In ED patient had evidence of worsening BUN and creatinine at 42 and 2.77 with a sodium of 126. Her calcium is elevated 11.4. She did have a mild elevation of troponin at 16.9 without any ischemic EKG changes. Her chest x-ray revealed mild congestive change but no overt heart failure. CT abdomen pelvis reveal interval progression of extensive metastatic disease, please refer to formal report. Her bilateral ureteral stents do appear to be in good position with unchanged mild right hydronephrosis. Updated Medication List Medication Instructions Recorded Confirmed Type pravastatin 80 mg tablet 80 mg PO HS 08/30/23 01/06/24 History venlafaxine 150 mg 150 mg PO HS 08/30/23 01/06/24 History capsule,extended release 24 hr acetaminophen 325 mg tablet 325 mg PO QID PRN Pain 12/20/23 01/06/24 History (Tylenol) ondansetron HCl 4 mg tablet 4 mg PO Q6 PRN Nausea 12/20/23 01/06/24 History apixaban 5 mg tablet (Eliquis) 2.5 mg (1/2 x 5 mg) PO BID #74 tabs 12/26/23 01/06/24 Rx magnesium chloride 64 mg 64 mg PO QAM 30 days #30 tabs 12/26/23 01/06/24 Rx (magnesium chloride) tablet,delayed release (Mag 64) metoprolol succinate 25 mg 12.5 mg (1/2 x 25 mg) PO BID 30 12/26/23 01/06/24 Rx tablet,extended release 24 hr days #30 tabs venlafaxine 75 mg capsule,extended 75 mg PO DAILY #30 caps 01/10/24 Rx release 24 hr Hospital Stay Data Consultations 01/06/24 17:44 ED Decision to Admit Stat 01/06/24 18:25 Consult Nephrology Routine 01/06/24 18:28 Consult Oncology Routine 01/06/24 18:29 Consult Urology Routine 01/07/24 12:52 Consult Palliative Care Routine Diagnostic Imagining Performed 01/06/24 16:40 CT stones [CT abd pelvis wo con] Stat 01/07/24 US arterial duplex LE BI Routine Pending Results Patient Have Any Pending Studies at Discharge: No Discharge Instructions Given to Patient (Per Discharging Provider) Further care care of hospice services at home
[2024-01-10 15:52] VITALS: BP 110/61; RESP 18; TEMP 97.3; O2SAT 96
[2024-01-10 16:58] VITALS: PULSE 82
--- NOTE | 2024-01-10 16:59 | Palliative Family Discussion ---
Date of Service January 10, 2024 Patient Directed Conference Time of Meetin-130pm Participants: Vannesa Lao DNP Patient participation: yes Patient Support System: sister/brother in law Other Healthcare Provider Participation: None Meeting Location: bedside Advanced Directive available: Yes If yes, descriptors: no code The patient's surrogate medical decision maker participated: yes/sister A 45min face to face ACP meeting was held for GRAZYNA FARRIS with her sister and brother in law. This meeting was necessary for determining the appropriate course of treatment. Topics of Discussion Topics of Discussion: 1. Adv met cancer, declining PS, not a candidate for more cancer rx 2. Terminally ill, desires to spend her remaining time with family and at home. 3. Family supportive of this wish and would like her home, they live next door to each other and have additional sibling and family in the local area who can help 4. Home hospice discussed. They chose [facility]. Other Content of Meetin. Opportunity given for participants to speak and ask questions. 2. Participants were assured of attention to patient comfort. 3. Reassurance provided. 4. Support was provided for informed, good-kevin decisions. 5. Emotions expressed by family were acknowledged and addressed. 6. Plan of Care: Home with [facility], family here today and can give her a ride home, no transportation needed. TS: 60min face to face ACP Thank you for allowing us to participate in the ongoing care of this patient. Please page with any additional concerns. Jeet Lao DNP Director, Palliative Medicine
[2024-01-10 19:35] LABS: Magnesium 2.4 mg/dl (1.7-2.4)
== END 2024-01-10 18:38 | disposition hospice, home (50) | DRG 683 ==
LOC: 2N 13:54 → ED 13:54 → SUATTDRO 18:21 → 2N 20:08
DX: E87.1 Hypo-osmolality and hyponatremia; Z66 Do not resuscitate; Z79.01 Long term (current) use of anticoagulants; L03.116 Cellulitis of left lower limb; F41.1 Generalized anxiety disorder; Z51.5 Encounter for palliative care; R53.1 Weakness; N18.9 Chronic kidney disease, unspecified; C78.6 Secondary malignant neoplasm of retroperitoneum and peritoneum; R18.8 Other ascites; I50.9 Heart failure, unspecified; G89.3 Neoplasm related pain (acute) (chronic); C50.412 Malignant neoplasm of upper-outer quadrant of left female breast; N13.8 Other obstructive and reflux uropathy; N13.39 Other hydronephrosis; Z87.891 Personal history of nicotine dependence; J43.9 Emphysema, unspecified; Z17.0 Estrogen receptor positive status [ER+]; Y92.019 Unspecified place in single-family (private) house as the place of occurrence of the external cause; R74.01 Elevation of levels of liver transaminase levels; Z86.718 Personal history of other venous thrombosis and embolism; R00.0 Tachycardia, unspecified; N17.9 Acute kidney failure, unspecified; C78.7 Secondary malignant neoplasm of liver and intrahepatic bile duct; G62.0 Drug-induced polyneuropathy; C79.51 Secondary malignant neoplasm of bone; E83.52 Hypercalcemia; T45.1X5A Adverse effect of antineoplastic and immunosuppressive drugs, initial encounter